=== PATIENT | female | born 1945 | race Caucasian/White ===

== ENCOUNTER 2019-10-26 00:26 | Day surgery (SDC) | payer MEDICARE, SELFPAY ==
[2019-10-22 14:25] VITALS: BMI 39.8
--- NOTE | 2019-10-26 10:17 | PM.HPGS ---
History of Present Illness History of Present Illness Consent: Risks, benefits, and alternatives have been discussed and questions answered. Patient agrees to proceed with procedure. Chief complaint: ulcer Narrative: Valorie Harris is a 74 year old W female referred for gastroscopy for evaluation and follow-up of peptic ulcer disease. Patient acute upper GI bleed in July 2019 was hospitalized at [facility]. Patient has been off her anticoagulation and cardiology wants to resume this thus we will check to make sure there is complete healing of the ulcer. Patient is asymptomatic. She remains on Protonix 40 mg daily. [facility] Family History Family History (Updated 02/15/17 @ 11:05 by DOCTOR UNKNOWN) Father Family history of congenital heart disease Family history of arthritis Family history of malignant neoplasm Sibling Family history of arthritis Mother Family history of malignant neoplasm Other Carcinoma of colon Family history of malignant neoplasm of bone Family history of malignant neoplasm of breast in first degree relative Family history of thyroid disease Social History Social History Smoking status: Former smoker Smoking end date: 08/19/04 Alcohol intake: never Meds Home Medications and Allergies Home Medications Medication Instructions Recorded Confirmed Type carvedilol 3.125 mg PO BID 10/22/19 10/26/19 History digoxin 0.125 mcg PO QAM 10/22/19 10/26/19 History ergocalciferol (vitamin D2) 50,000 unit PO WEEKLY 10/22/19 10/22/19 History furosemide 40 mg PO DAILY PRN 10/22/19 10/22/19 History levothyroxine 125 mcg PO QAM 10/22/19 10/26/19 History pantoprazole 40 mg PO QAM 10/22/19 10/22/19 History pentoxifylline 400 mg PO DAILY 10/22/19 10/26/19 History potassium chloride 20 meq PO DAILY PRN 10/22/19 10/22/19 History pregabalin [Lyrica] 200 mg PO BID 10/22/19 10/26/19 History sacubitril-valsartan [Entresto] 1 tablet PO BID 10/22/19 10/26/19 History sertraline [Zoloft] 25 mg PO QAM 10/22/19 10/26/19 History simvastatin 20 mg PO QAM 10/22/19 10/22/19 History tramadol 50 mg PO Q4-5H PRN 10/22/19 10/26/19 History Allergies Allergy/AdvReac Type Severity Reaction Status Date / Time No Known Allergies Allergy Unverified 08/16/18 14:07 Exam Const: Orientation/consciousness: patient oriented x3 Resp: Auscultation: clear to auscultation bilaterally Cardio: Rate: regular rate Rhythm: regular rhythm Heart sounds: no murmurs GI: GI Palp: Yes Soft to palpation, No Tenderness to palpation present (GI), Yes No hepatosplenomegaly present and No Palpable mass present Auscultation: normal bowel sounds Neuro: General: patient oriented x3 and no focal motor deficits Extrem: General: no pedal edema Assessment and Plan Additional Plan EGD for follow-up of peptic ulcer disease
[2019-10-26] MEDS: LACTATED RINGERS 1,000 ML 150 ML IV CONT (10:22)
[2019-10-26 10:24] VITALS: BP 125/63; PULSE 78; RESP 22; TEMP 36.3; O2SAT 93; BMI 38.0
--- NOTE | 2019-10-26 10:36 | WPDANESEPPF ---
Anes - Initial Pre Proc Eval Procedure: Operation Date: 10/26/19 11:30 Proposed Procedures p Esophagogastroduodenoscopy - Urbano Hancock MD Date/Time: 10/26/19 10:36 Surgeon: Urbano Hancock MD Pre Op Diagnosis: ulcer Patient Data Age: 74 Gender: F Height: 5 ft 6 in Weight: 107 kg Last Vital Signs Temp 97.4 F L 10/26/19 10:24 Pulse 78 10/26/19 10:24 Resp 22 H 10/26/19 10:24 BP 125/63 10/26/19 10:24 Pulse Ox 93 10/26/19 10:24 Allergies Allergy/AdvReac Type Severity Reaction Status Date / Time No Known Allergies Allergy Unverified 10/26/19 10:23 Home Medications Medication Instructions Recorded Confirmed Type carvedilol 3.125 mg PO BID 10/22/19 10/26/19 History digoxin 0.125 mcg PO QAM 10/22/19 10/26/19 History ergocalciferol (vitamin D2) 50,000 unit PO WEEKLY 10/22/19 10/22/19 History furosemide 40 mg PO DAILY PRN 10/22/19 10/22/19 History levothyroxine 125 mcg PO QAM 10/22/19 10/26/19 History pantoprazole 40 mg PO QAM 10/22/19 10/22/19 History pentoxifylline 400 mg PO DAILY 10/22/19 10/26/19 History potassium chloride 20 meq PO DAILY PRN 10/22/19 10/22/19 History pregabalin [Lyrica] 200 mg PO BID 10/22/19 10/26/19 History sacubitril-valsartan [Entresto] 1 tablet PO BID 10/22/19 10/26/19 History sertraline [Zoloft] 25 mg PO QAM 10/22/19 10/26/19 History simvastatin 20 mg PO QAM 10/22/19 10/22/19 History tramadol 50 mg PO Q4-5H PRN 10/22/19 10/26/19 History Patient hx anesthesia problems: none Family hx anesthesia problems: none PMFSH Past Medical History Medical History (Updated 10/26/19 @ 10:35 by Hi Vargas MD) Atrial fibrillation 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[facility]; 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, 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; 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 H/O: lung cancer Hyperlipidemia Hypertension Morbid obesity Peripheral vascular disease Family History Family History (Updated 02/15/17 @ 11:05 by DOCTOR UNKNOWN) Father Family history of congenital heart disease Family history of arthritis Family history of malignant neoplasm Sibling Family history of arthritis Mother Family history of malignant neoplasm Other Carcinoma of colon Family history of malignant neoplasm of bone Family history of malignant neoplasm of breast in first degree relative Family history of thyroid disease Social History Social History Smoking status: Former smoker Smoking end date: 08/19/04 Alcohol intake: never Anes - Eval Final PreProcedure Day of Procedure 10/26/19 10:36 Patient weight: morbidly obese Heart: regular rate and rhythm Lungs: clear to auscultation Airway: Mallampati scale class III Neurological: alert and oriented Last oral intake: >/= 8 hours ASA classification: IV Emergent: no Anesthetic plan: proceed Anesthesia type and monitoring: general GIVS and standard monitoring Informed Consent: The patient's anesthetic plan and its attendant risks and benefits were discussed with the patient/family/POA. Questions were solicited and answers provided to the satisfaction of the patient/family/POA.
[2019-10-26 11:05] VITALS: BP 98/55; PULSE 68; RESP 18; O2SAT 94
[2019-10-26 11:15] VITALS: BP 109/65; PULSE 72; RESP 20; O2SAT 91
[2019-10-26 11:25] VITALS: BP 121/59; PULSE 74; RESP 20; O2SAT 94
== END 2019-10-26 11:55 | disposition home or self-care (01) ==
PROVIDERS: PCP Internal Medicine; Visit Provider Internal Medicine Gastroenterology
PROC: 0DJ08ZZ Inspection of Upper Intestinal Tract, Via Natural or Artificial Opening Endoscopic (ICD-10-PCS; CPT 43235; principal; 2019-10-26 11:30)
DX: Z09 Encounter for follow-up examination after completed treatment for conditions other than malignant neoplasm (principal); Z87.11 Personal history of peptic ulcer disease; I48.91 Unspecified atrial fibrillation; I11.0 Hypertensive heart disease with heart failure; I50.9 Heart failure, unspecified; E78.5 Hyperlipidemia, unspecified; I73.9 Peripheral vascular disease, unspecified; Z85.118 Personal history of other malignant neoplasm of bronchus and lung; Z99.81 Dependence on supplemental oxygen; E66.01 Morbid (severe) obesity due to excess calories; Z68.38 Body mass index [BMI] 38.0-38.9, adult; Z87.891 Personal history of nicotine dependence
CPT/HCPCS: 43239; 87081; J2704; J7120

== ENCOUNTER 2019-11-16 08:32 | Inpatient (IN) | payer MEDICARE, SELFPAY ==
[2019-11-16] VITALS (9 sets, daily range): BP systolic 114–161; BP diastolic 80–99; PULSE 72–140; RESP 14–24; TEMP 36.6–36.8; O2SAT 92–99; BMI 41.6
--- NOTE | ~2019-11-16 | CT_ITS ---
EXAMINATION: CTA chest PE protocol DATE: 11/16/2019 13:16 INDICATION: Shortness of breath for 3 days. Nonproductive cough. Chest pain. TECHNIQUE: Computed tomography angiography (CTA) of the chest was performed with 100 mL Omnipaque-350 intravenous contrast timed to evaluate the pulmonary arteries. Coronal maximum intensity projection 3D-reconstructions were created by the technologist. Automated exposure control and iterative reconst ruction technique were employed. Exam dose: 859.00 mGy-cm total exam DLP. COMPARISON: None. FINDINGS: There is diagnostic contrast enhancement of the pulmonary arteries and no evidence of pulmo nary embolism. Endovascular stent of descending thoracic aorta. There are extensive calcifications of the thoracic aorta and great vessels and coronary arteries. Small bilateral pleural effusions. There are bilateral dependent lower lobe infiltrates and/or atelectasis, left greater than right. There are dependent stones in the body and neck of the gallbladder. Normal morphology of the adrenal glands. Status post lower cervical spine surgical anterior fusion. Old healed right fifth rib fracture IMPRESSION: No evidence of pulmonary embolism Endovascular stent of descending thoracic aorta Bilateral lower lobe infiltrate and/atelectasis, greater on the left Small pleural effusions Reviewed, dictated and finalized at Location [facility]. Reviewed, dictated and finalized at location B.
--- NOTE | ~2019-11-16 | XR_ITS ---
EXAMINATION: XR chest 1V portable INDICATION: Shortness of breath TECHNIQUE: Portable AP chest at 0910 hours COMPARISON: 01/26/2009 FINDINGS: There are airspace opacities in the mid and lower lung zones. There is chronic elevation of the right hemidiaphragm. No definite pleural effusion or pneumothorax is identified. An endoluminal stent graft is noted in the descending thoracic aorta. Changes of cervical fusion are noted. The hear t size is normal for technique. IMPRESSION: 1. Airspace opacities of the mid and lower lung zones, consistent with atelectasis versus pneumonia. Reviewed, dictated and finalized at location A. IMPRESSION: 1. Airspace opacities of the mid and lower lung zones, consistent with atelecta sis versus pneumonia.
--- NOTE | ~2019-11-16 | CT_ITS ---
EXAMINATION: CT brain wo con EXAM DATE: 11/18/2019 18:06 INDICATION: Confusion. TECHNIQUE: Spiral CT of the head was performed without contrast. Axial, coronal and sagittal images were reviewed. The dose-length product (DLP) for this examination was 605.33 mGy-cm. The exposure w as tailored according to patient size, and iterative reconstruction (ASIR) was used as additional dos e reduction technique. FINDINGS: There is no acute intraparenchymal hemorrhage. No evidence of intraparenchymal brain mass lesion. No evidence of acute infarction. Please note that initial head CT has limited sensitivity f or small or acute infarctions. There is mild periventricular and subcortical hypodensity, nonspecific but probably related to small vessel ischemic disease. There is mild prominence of the sulci and v entricles related to cerebral atrophy. There is intracranial carotid arteriosclerosis. There are n o extra-axial collections. There is no mass effect or midline shift. The orbits are unremarkable. Soft tissue is unremarkable. The visualized sinuses and mastoid air cells are well aerated. IMPRESSION: 1. No acute intracranial findings. 2. Chronic age related findings. Reviewed, dictated and finalized at location A.
--- NOTE | 2019-11-16 08:48 | ECG_ITS ---
Measurements Intervals [place] Rate: 106 P: AK: 0 QRS: 17 QRSD: 88 T: 154 QT: 293 QTc: 389 Interpretive Statements ATRIAL FIBRILLATION WITH RAPID VENTRICULAR RESPONSE FREQUENT VENTRICULAR PREMATURE COMPLEXES NONSPECIFIC ST & T-WAVE ABNORMALITY- DIFFUSE LEADS ABNORMAL ECG Electronically Signed On 11-16-2019 9:49:49 CDT by Jason Richards D.O.
[2019-11-16 09:25] LABS: Basophils Absolute Auto 0.1 K/mm3 (0.0-0.1); Basophils Percent Auto 0.9 % (0.2-1.2); Eosinophils Absolute Auto 0.1 K/mm3 (0-0.3); Eosinophils Percent Auto 1.7 % (0-4.4); Hematocrit 36.9 % (37.0-47.0); Hemoglobin 10.5 g/dL (12.0-15.0); Immature Granulocyte Absolute 0.02 K/mm3 (0.00-0.031); Immature Granulocyte Percent A 0.3 % (0-0.5); Lymphocytes Absolute Auto 0.83 K/mm3 (0.9-3.2); Lymphocytes Percent Auto 12.6 % (18.3-44.2); Mean Corpuscular HGB Conc 28.5 g/dl (32-36); Mean Corpuscular Hemoglobin 27.5 pg (26-34); Mean Corpuscular Volume 96.6 fl (80-100); Monocytes Absolute Auto 0.5 K/mm3 (0.1-0.6); Monocytes Percent Auto 7.4 % (2.6-8.5); Neutrophils Absolute Auto 5.1 K/mm3 (1.3-6.7); Neutrophils Percent Auto 77.1 % (45.5-73.1); Platelet Count Result 170 k/mm3 (150-375); Red Blood Count 3.82 M/mm3 (4.2-5.4); Red Cell Distribution Width 15.5 % (11.5-14.5); White Blood Count 6.6 K/mm3 (4.5-10.0)
[2019-11-16 09:27] LABS: Blood Urea Nitrogen 11 mg/dL (7-17); Calcium 8.7 mg/dL (8.4-10.2); Carbon Dioxide > 40 mmol/L (22-30); Chloride 97 mmol/L (98-107); Estimated CRCL calculation 81 ml/min; Estimated Glomerular Filt Rate > 60; Glucose 137 mg/dL (65-105); Sodium 139 mmol/L (137-145)
--- NOTE | 2019-11-16 09:44 | ED.SOB ---
HPI - SOB/Dyspnea General Chief Complaint: Shortness of Breath/Dyspnea Stated Complaint: sob Time Seen by Provider: 11/16/19 09:17 Source: patient Mode of arrival: ambulatory Limitations: no limitations History of Present Illness HPI Narrative: Patient presents with CC of shortness of breath with any exertion over the past 2-3 days. Patient states she does not have any cough or fever. She reports diarrhea over the past 2-3 days. She reports soreness to her sternal area and to the sides of bilateral ribs. Patient denies sharp left-sided chest pain with any radiation into her jaw or left arm. Denies vomiting. Patient states she normally wears 2L nasal cannula O2 at home due to COPD. She states she felt short of breath while trying to transfer to the shower. Patient reports she is wheelchair-bound at baseline. Patient also reports history of heart failure but denies noticing swelling to her lower extremities. She states her son and daughter and law who she lives with returned from [facility] 10 days ago. She states they have not been ill. Related Data Home Medications Medication Instructions Recorded Confirmed Entresto 1 tablet PO BID 10/22/19 10/26/19 carvedilol 3.125 mg PO BID 10/22/19 10/26/19 digoxin 0.125 mcg PO QAM 10/22/19 10/26/19 ergocalciferol (vitamin D2) 50,000 unit PO WEEKLY 10/22/19 10/22/19 furosemide 40 mg PO DAILY PRN 10/22/19 10/22/19 pantoprazole 40 mg PO QAM 10/22/19 10/22/19 pentoxifylline 400 mg PO BID 10/22/19 10/26/19 pregabalin [Lyrica] 200 mg PO BID 10/22/19 10/26/19 sertraline [Zoloft] 25 mg PO QAM 10/22/19 10/26/19 simvastatin 20 mg PO QAM 10/22/19 10/22/19 tramadol 50 mg PO Q4-5H PRN 10/22/19 10/26/19 aspirin [Aspir-81] 81 mg PO DAILY 11/16/19 potassium chloride [Klor-Con M20] 20 meq PO DAILY 11/16/19 Allergies Allergy/AdvReac Type Severity Reaction Status Date / Time No Known Allergies Allergy Unverified 11/16/19 08:33 Review of Systems Review of Systems: Narrative: CONSTITUTIONAL: Denies fever, chills, or sweats. EYES: Denies visual changes, redness, or discharge. ENT: Denies rhinorrhea, congestion, sore throat, or otalgia. CARDIOVASCULAR: Reports midsternal pain and bilateral rib pain denies palpitations, or edema. RESPIRATORY: Reports dyspnea denies cough GASTROINTESTINAL: Denies abdominal pain, nausea, vomiting, or diarrhea. GENITOURINARY: Denies dysuria or hematuria. SKIN: Denies rash or itching. MUSCULOSKELETAL: Denies back pain, joint pain, or myalgia. NEUROLOGIC: Denies headache, numbness, dizziness, or weakness. PSYCHIATRIC: Denies anxiety or depression. [facility] Past Medical History Medical History (Updated 11/16/19 @ 19:54 by Lisette De La Garza NP) Arterial stent thrombosis Left leg Atrial fibrillation Taken off of anticoagulation due to her peptic ulcer disease. 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 COPD (chronic obstructive pulmonary disease) Depression H/O: lung cancer Hyperlipidemia Hypertension Hypothyroidism Morbid obesity Peptic ulcer disease Peripheral artery disease Peripheral vascular disease Surgical History Surgical History (Updated 11/16/19 @ 19:37 by Lisette De La Garza NP) H/O tubal ligation History of appendectomy History of esophagogastroduodenoscopy (EGD) Family History Family History Father Family history of malignant neoplasm Family history of arthritis Carcinoma of colon Sibling Family history of arthritis Family history of malignant neoplasm of breast in first degree relative Mother Family history of malignant neoplasm breast cancer developed to bone; Sibling Family history of malignant neoplasm of breast in first degree relative Sibling Family history of malignant neoplasm of breast in first degree relative Other Family history of malignant neoplasm of bone Family history of thyroid disease
[2019-11-16 10:02] LABS: NT Pro B Type Natriuretic Pept 2940 PG/ML (5-100)
[2019-11-16] MEDS: ASPIRIN 81 MG CHEWABLE TABLET 243 MG PO (10:02)
[2019-11-16] MEDS: SODIUM CHLORIDE 0.9% IV 500 ML 999 ML IV CONT (10:02)
[2019-11-16] MEDS: methylPREDNISolone SOD SUCC 125 MG VIAL IV PUSH (12:53)
[2019-11-16] MEDS: POTASSIUM CHLORIDE 20 MEQ TABLET 40 MEQ PO (14:58)
--- NOTE | 2019-11-16 15:40 | PC.NURSE ---
This Rn Called to give report. Was told by Ericka that nurse was in room and will call me back.
--- NOTE | 2019-11-16 16:31 | ADMGEN ---
This patient, Valorie Harris, was admitted to [facility] Surg Room 330-01. Patient/family oriented to hospital policies and general routines including ID bracelet, bed and alarms, visiting hours, pain management, procedures, bathroom and other care routines, personal items, smoking policy, room service/diet, and visiting hours. Valuables list has been completed. Information on how to activate the Rapid Response Team has been discussed. Patient/Family are encouraged to report perceived risks to care and to ask questions if they do not understand what they are told or what they should do.
--- NOTE | 2019-11-16 19:10 | PM.IMHP ---
H&P: HPI History of Present Illness Chief complaint: bilateral pneumonia/COVID tested Narrative: Valorie Harris is a 74 year old female who has a history of having COPD as well as congestive heart failure. The patient the patient has been complaining of shortness of breath with exertion over the last 2-3 days. She denies having a cough or fever. She has also has diarrhea for last 2-3 days. Her son and daughter along live with her and they just returned back from [facility] approximately 10 days ago. The patient tells me that she has home health services and that she has been socially isolating from her son and [id number] all the best she can in her own home. The son and daughter in-law did not isolate themselves. The patient is wheelchair-bound at baseline. The patient also has a history of atrial fibrillation but was taken off of her anti coagulation because she recently had a GI bleed. Patient was taken off of her anticoagulation is still not back on. She recently had an EGD on 10/26/2019. The patient had been at [facility] and July through August and had a GI bleed. July and August she was treated for pneumonia as well. The patient sees Dr. Ulloa for her GI specialist. The patient had a CT a pulmonary performed which was read as no evidence of pulmonary embolism. Continue with a Zithromax and Rocephin. [place] department of public health department was notified. The patient was a candidate for covid 19 and she was swabbed. Patient was placed on isolation on 3rd floor. She has a dry cough. No fever chills. Review of Systems Review of Systems: All systems reviewed & are unremarkable except as noted in HPI and below Constitutional: Constitutional: Reports as per HPI and Reports no additional constitutional complaints Eyes: Eyes: Reports as per HPI and Reports no additional eye complaints ENT: Reports system reviewed and no additional complaints, except as documented and Reports Normal hearing present Cardiovascular: Cardiovascular: Reports no additional cardiovascular complaints Respiratory: Respiratory: Reports no additional respiratory complaints and Reports no additional respiratory complaints Gastrointestinal: Gastrointestinal: Reports as per HPI and Reports no additional gastrointestinal complaints Musculoskeletal: Musculoskeletal: Reports no additional musculoskeletal complaints Integumentary/Breasts: Skin/Breast: Reports system reviewed and no additional complaints, except as docu and Reports as per HPI Neurologic: Reports system reviewed and no additional complaints, except as documented, Reports as per HPI and Reports Normal hearing present Psychiatric: Psychiatric: Reports no additional psychiatric complaints and Reports as per HPI Endocrine: Endocrine: Reports no additional endocrine complaints Hematologic/Lymphatic: Hematologic/Lymphatic: Reports no additional hematologic/lymphatic complaints Allergic/Immunologic: Allergic/Immunologic: Reports no additional allergic/immunologic complaints [facility] Past Medical History Medical History (Updated 11/16/19 @ 19:54 by Lisette De La Garza NP) Arterial stent thrombosis Left leg Atrial fibrillation Taken off of anticoagulation due to her peptic ulcer disease. 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
[2019-11-16] MEDS: TRAMADOL HCL 50 MG TABLET PO (20:00)
[2019-11-16] MEDS: LORAZEPAM INJ 2 MG/ML VIAL 0.5 MG IV PUSH (20:06)
[2019-11-16] MEDS: carvediloL 3.125 MG TABLET PO (20:10)
[2019-11-16] MEDS: PREGABALIN 50 MG CAPSULE 200 MG PO (20:15)
[2019-11-16] MEDS: PENTOXIFYLLINE 400 MG TABCR PO (20:23)
[2019-11-16] MEDS: DIGOXIN TAB 125 MCG TABLET PO (20:30)
--- NOTE | 2019-11-16 20:32 | PC.NURSE ---
Pt assessed at 1715, but I charted the 171 assessment as a 2000.
[2019-11-16 22:07] LABS: Glucose Point of Care 135 (65-105)
[2019-11-16 22:08] LABS: Glucose Point of Care 174 (65-105)
[2019-11-17] VITALS (12 sets, daily range): BP systolic 117–165; BP diastolic 53–88; PULSE 54–112; RESP 18–22; TEMP 36.2–36.4; O2SAT 94–97
--- NOTE | 2019-11-17 02:00 | PC.NURSE ---
Frequent attempts throughout the night made to get out of bed unassisted, setting the bed alarm off. Discussed safety precautions at length and time spent at bedside. Verbalized understanding of all information discussed. Assisted to chair at bedside. Call light within reach. Chair alarm in place. Continue to monitor.
[2019-11-17] MEDS: TRAMADOL HCL 50 MG TABLET PO ×2 (03:33→08:42)
[2019-11-17] MEDS: LORAZEPAM INJ 2 MG/ML VIAL 0.5 MG IV PUSH (03:33)
[2019-11-17 05:59] LABS: Basophils Percent Auto 0.3 % (0.2-1.2); Hematocrit 36.4 % (37.0-47.0); Hemoglobin 10.9 g/dL (12.0-15.0); Immature Granulocyte Absolute 0.03 K/mm3 (0.00-0.031); Immature Granulocyte Percent A 0.5 % (0-0.5); Lymphocytes Absolute Auto 1.01 K/mm3 (0.9-3.2); Lymphocytes Percent Auto 16.4 % (18.3-44.2); Mean Corpuscular HGB Conc 29.9 g/dl (32-36); Mean Corpuscular Volume 93.6 fl (80-100); Mean Platelet Volume 11.6 fl (7.4-10.4); Monocytes Absolute Auto 0.4 K/mm3 (0.1-0.6); Monocytes Percent Auto 5.7 % (2.6-8.5); Neutrophils Absolute Auto 4.7 K/mm3 (1.3-6.7); Neutrophils Percent Auto 77.1 % (45.5-73.1); Platelet Count Result 208 k/mm3 (150-375); Red Blood Count 3.89 M/mm3 (4.2-5.4); Red Cell Distribution Width 15.4 % (11.5-14.5); White Blood Count 6.1 K/mm3 (4.5-10.0)
[2019-11-17 06:30] LABS: Alanine Aminotransferase 13 U/L (4-35); Albumin Level 4.1 g/dL (3.5-5.1); Alkaline Phosphatase 106 U/L (38-126); Aspartate Amino Transferase 16 U/L (14-36); Bilirubin,Total 0.4 mg/dL (0.2-1.3); Blood Urea Nitrogen 13 mg/dL (7-17); Calcium 8.9 mg/dL (8.4-10.2); Carbon Dioxide 39 mmol/L (22-30); Chloride 97 mmol/L (98-107); Estimated CRCL calculation 81 ml/min; Estimated Glomerular Filt Rate > 60; Glucose 142 mg/dL (65-105); Magnesium 1.8 mg/dL (1.6-2.3); Potassium 3.6 mmol/L (3.4-5.0); Sodium 139 mmol/L (137-145)
[2019-11-17] MEDS: carvediloL 3.125 MG TABLET PO ×2 (08:25→20:10)
[2019-11-17] MEDS: PANTOPRAZOLE 40 MG TABLET PO (08:29)
[2019-11-17] MEDS: PENTOXIFYLLINE 400 MG TABCR PO ×2 (08:29→16:09)
[2019-11-17] MEDS: SERTRALINE HCL 25 MG TABLET PO (08:30)
[2019-11-17] MEDS: SIMVASTATIN 20 MG TABLET PO (08:35)
[2019-11-17] MEDS: DIGOXIN TAB 125 MCG TABLET PO (08:36)
[2019-11-17] MEDS: PREGABALIN 50 MG CAPSULE 200 MG PO ×2 (08:43→16:08)
--- NOTE | 2019-11-17 12:11 | PC.NURSE ---
Patient states had been on Eliquis for a fib, but stopped recently per Dr. Hancock for recent scope. Patient's pharmacy [facility] [phone] states that medication prescribed to patient in July by Erin Johnson NP but script never filled. Office called and nurse states that they do not see medication on her current list, but that they would have a doctor from the office review information and give us a call back regarding eliquis.
--- NOTE | 2019-11-17 12:31 | PM.IMPN ---
Progress Note: A&P Assessment and Plan (1) CAP (community acquired pneumonia): Code(s): J18.9 - Pneumonia, unspecified organism Status: Acute Assessment and Plan: -----Continue ceftriaxone and azithromycin at this time. CTA reviewed which showed bilateral lower lobe infiltrates and atelectasis. Since the patient is at risk and has a family member at home that just recently traveled to [facility], COVID test was done and is pending. Azithromycin and Rocephin will be continued. We will try and get a sputum it pt is able. Patient is afebrile and has no white count at this time. Clinically, COVID seems less likely. . (2) COPD (chronic obstructive pulmonary disease): Code(s): J44.9 - Chronic obstructive pulmonary disease, unspecified Status: Chronic Assessment and Plan: -----No wheezing today. No additional steroids needed at this time. (3) Atrial fibrillation: Code(s): I48.91 - Unspecified atrial fibrillation Status: Acute Assessment and Plan: ------Patient was off of her anticoagulation because she recently had a GI bleed. She recently had an EGD performed by Dr. Hancock. I called her sr. director product management Dr. Shi and spoke with office staff and asked what anticoagulation they want her on. They said the doctor wants to see her before they start anything. They are going to call her to make an appointment. She still continues to be treated for peptic ulcer disease. She is on Coreg and digoxin and rate controlled. (4) Hyperlipidemia: Code(s): E78.5 - Hyperlipidemia, unspecified Status: Chronic Assessment and Plan: Continue with Zocor. (5) Hypertension: Code(s): I10 - Essential (primary) hypertension Status: Chronic Assessment and Plan: ------Continue with Coreg. (6) Hypothyroidism: Code(s): E03.9 - Hypothyroidism, unspecified Status: Chronic Assessment and Plan: -----TSH normal. Pt is not on levothyroxine anymore. Follow up with pcp (7) Depression: Code(s): F32.9 - Major depressive disorder, single episode, unspecified Status: Chronic Assessment and Plan: -----Continue Zoloft. (8) Congestive heart failure (CHF): Code(s): I50.9 - Heart failure, unspecified Status: Acute Assessment and Plan: -----Appears to be stable at this time. Continue with her Lasix. Additional Plan Chronic pain due to her peripheral neuropathy. Continue with Lyrica and Ultram. Peripheral artery disease continue with her Trental. Time Spent With Patient Time with patient: 25 - 35 minutes Subjective Date/time seen: 11/17/19 12:31 Interval history: Pt is a 74 y/o female here for PNA who was seen today. She denies cough, fevers, chills, nausea, vomiting, abdominal pain or diarrhea today. She says she feels SOB occasionally but overall doing much better. She is at her home o2 setting. She has not slept due to the noise of the hospital. Review of Systems Review of Systems: All systems reviewed & are unremarkable except as noted in HPI and below Exam Narrative: Exam Narrative: General: Well developed well nourished patient resting in bed in NAD HEENT: normocephalic Neck: supple Neuro: Alert and oriented x4 CV: RRR on my exam today. Tele shows intermittent afib RVR with rates up to 140. Currently in NSR Resp:CTA--decreased breath sounds. Please note, a disposable stethoscope was used during this lung exam which decreases sensitivity. Abd: Soft, non distended. No pain to palpation. Positive bowel sounds Extremities: No swelling, erythema, or pain to palpation. Objective Data Vital Signs Vital Signs: Vital Signs - 24 hr 11/16/19 12:43 11/16/19 14:55 11/16/19 19:41 Temperature Pulse Rate 98 103 H 132 H Respiratory Rate 15 20 Blood Pressure 136/99 H 121/97 H Pulse Oximetry 99 94 94 11/16/19 20:00 11/16/19 20:10 11/16/19 20:30 Temperature 97.8
[2019-11-17] MEDS: ENOXAPARIN 40 MG/0.4 ML SYRINGE SUB-Q (13:00)
[2019-11-17] MEDS: MELATONIN 5 MG TABLET PO (20:10)
[2019-11-18] VITALS (12 sets, daily range): BP systolic 113–137; BP diastolic 53–96; PULSE 66–110; RESP 16–20; TEMP 36.3–36.6; O2SAT 91–98
[2019-11-18] MEDS: TRAMADOL HCL 50 MG TABLET PO ×3 (02:00→18:42)
[2019-11-18 06:05] LABS: Hematocrit 37.9 % (37.0-47.0); Hemoglobin 10.7 g/dL (12.0-15.0); Mean Corpuscular HGB Conc 28.2 g/dl (32-36); Mean Corpuscular Hemoglobin 27.5 pg (26-34); Mean Corpuscular Volume 97.4 fl (80-100); Mean Platelet Volume 12.3 fl (7.4-10.4); Platelet Count Result 212 k/mm3 (150-375); Red Blood Count 3.89 M/mm3 (4.2-5.4); Red Cell Distribution Width 15.6 % (11.5-14.5); White Blood Count 7.8 K/mm3 (4.5-10.0)
[2019-11-18 07:23] LABS: Blood Urea Nitrogen 15 mg/dL (7-17); Calcium 8.9 mg/dL (8.4-10.2); Carbon Dioxide 39 mmol/L (22-30); Chloride 96 mmol/L (98-107); Estimated CRCL calculation 81 ml/min; Estimated Glomerular Filt Rate > 60; Glucose 109 mg/dL (65-105); Magnesium 1.9 mg/dL (1.6-2.3); Potassium 3.4 mmol/L (3.4-5.0); Sodium 138 mmol/L (137-145)
[2019-11-18] MEDS: ENOXAPARIN 40 MG/0.4 ML SYRINGE SUB-Q (09:37)
[2019-11-18] MEDS: PANTOPRAZOLE 40 MG TABLET PO (09:38)
[2019-11-18] MEDS: DIGOXIN TAB 125 MCG TABLET PO (09:38)
[2019-11-18] MEDS: carvediloL 3.125 MG TABLET PO ×2 (09:38→21:12)
[2019-11-18] MEDS: PENTOXIFYLLINE 400 MG TABCR PO ×2 (09:39→18:43)
[2019-11-18] MEDS: SIMVASTATIN 20 MG TABLET PO (09:39)
[2019-11-18] MEDS: SERTRALINE HCL 25 MG TABLET PO (09:39)
--- NOTE | 2019-11-18 09:48 | PC.NURSE ---
Reviewed patient status with ADITYA Durant. Aware of confusion and anxiety concerns. She is contacting family for further information regarding home oxygen use needs prior to admission.
[2019-11-18] MEDS: PREGABALIN 50 MG CAPSULE 200 MG PO ×2 (09:58→18:43)
--- NOTE | 2019-11-18 11:49 | PM.IMPN ---
Progress Note: A&P Assessment and Plan (1) CAP (community acquired pneumonia): Code(s): J18.9 - Pneumonia, unspecified organism Status: Acute Assessment and Plan: -----Continue ceftriaxone and azithromycin at this time. CTA reviewed which showed bilateral lower lobe infiltrates and atelectasis. Since the patient is at risk and has a family member at home that just recently traveled to [facility], COVID test was done and is pending. Azithromycin and Rocephin will be continued. We will try and get a sputum it pt is able but unable to do so, so far. Patient is afebrile and has no white count at this time. Clinically, COVID seems less likely. . (2) COPD (chronic obstructive pulmonary disease): Code(s): J44.9 - Chronic obstructive pulmonary disease, unspecified Status: Chronic Assessment and Plan: -----No wheezing today. No additional steroids needed at this time. (3) Atrial fibrillation: Code(s): I48.91 - Unspecified atrial fibrillation Status: Acute Assessment and Plan: ------Patient was off of her anticoagulation because she recently had a GI bleed. She recently had an EGD performed by Dr. Hancock. I called her collarette separator Dr. Shi and spoke with office staff and asked what anticoagulation they want her on. They said the doctor wants to see her before they start anything. They are going to call her to make an appointment. She still continues to be treated for peptic ulcer disease. She is on Coreg and digoxin and rate controlled. I will get a baseline CT scan since pt goes in and out of confusion and has known afib. (4) Hyperlipidemia: Code(s): E78.5 - Hyperlipidemia, unspecified Status: Chronic Assessment and Plan: Continue with Zocor. (5) Hypertension: Code(s): I10 - Essential (primary) hypertension Status: Chronic Assessment and Plan: ------Continue with Coreg and entresto (6) Hypothyroidism: Code(s): E03.9 - Hypothyroidism, unspecified Status: Chronic Assessment and Plan: -----TSH normal. Pt is not on levothyroxine anymore. Follow up with pcp (7) Depression: Code(s): F32.9 - Major depressive disorder, single episode, unspecified Status: Chronic Assessment and Plan: -----Continue Zoloft. (8) Congestive heart failure (CHF): Code(s): I50.9 - Heart failure, unspecified Status: Acute Assessment and Plan: -----Appears to be stable at this time. Continue with her Lasix. Subjective Date/time seen: 11/18/19 11:49 Interval history: Pt is a 74 y/o female here for PNA who was seen today. Patient states she thinks she is doing a little worse today. She said she was not wearing her oxygen and she felt short of breath. She denies fevers, chills, chest pain, nausea, vomiting, abdominal pain or leg pain. In the room she told me that she does not usually wear her oxygen at home unless it is at night. I called her son, Evaristo, because there was some question about her memory. Evaristo says that her memory is getting worse and is exacerbated when she goes to the hospital or other places. She has never been seen for dementia but he has noticed a decline in the last year so. 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 Exam Narrative: Exam Narrative: General: Well developed well nourished patient resting in bed in NAD HEENT: normocephalic Neck: supple Neuro: Alert and oriented x4 technically CV: RRR on my exam today. Tele shows afib with controlled rate. Currently in NSR Resp:CTA--decreased breath sounds with some crackles Abd: Soft, non distended. No pain to palpation. Positive bowel sounds Extremities: No swelling, erythema, or pain to palpation. Objective Data Vital Signs Vital Signs: Vital Signs - 24 hr 11/17/19 12:00 11/17/19 16:00 11/17/19 20:00 Temperature 97.1 F L Pulse Rate 104 H 98 112 H Res
[2019-11-18] MEDS: ALBUTEROL SULFATE (*SP) AEROSOL 1 PUFF 2 PUFF INHALATION ×3 (14:24→20:48)
--- NOTE | 2019-11-18 16:06 | PC.NURSE ---
Covid 19 test results reported as negative. Droplet isolation 2020 precautions dced.
[2019-11-18] MEDS: SACUBITRIL/VALSARTAN 49-51 MG TABLET 1 TABLET PO (18:43)
[2019-11-18] MEDS: MELATONIN 5 MG TABLET PO (21:12)
[2019-11-18] MEDS: TOLNAFTATE 1% POWDER 45 GM BTL 1 APPLIC TOPICAL (21:13)
[2019-11-19] VITALS (7 sets, daily range): BP systolic 124–151; BP diastolic 65–93; PULSE 80–97; RESP 16–20; TEMP 36.3–36.7; O2SAT 91–93
[2019-11-19] MEDS: TRAMADOL HCL 50 MG TABLET PO ×4 (00:18→18:20)
[2019-11-19 06:07] LABS: Hematocrit 36.6 % (37.0-47.0); Hemoglobin 10.5 g/dL (12.0-15.0); Mean Corpuscular HGB Conc 28.7 g/dl (32-36); Mean Corpuscular Hemoglobin 27.9 pg (26-34); Mean Corpuscular Volume 97.1 fl (80-100); Platelet Count Result 177 k/mm3 (150-375); Red Blood Count 3.77 M/mm3 (4.2-5.4); Red Cell Distribution Width 15.7 % (11.5-14.5); White Blood Count 5.6 K/mm3 (4.5-10.0)
[2019-11-19 07:17] LABS: Blood Urea Nitrogen 15 mg/dL (7-17); CRP 3.3 mg/dL (<1.0); Calcium 8.3 mg/dL (8.4-10.2); Carbon Dioxide > 40 mmol/L (22-30); Chloride 96 mmol/L (98-107); Estimated CRCL calculation 72 ml/min; Estimated Glomerular Filt Rate > 60; Glucose 94 mg/dL (65-105); Potassium 3.1 mmol/L (3.4-5.0); Sodium 141 mmol/L (137-145)
[2019-11-19] MEDS: ALBUTEROL SULFATE (*SP) AEROSOL 1 PUFF 2 PUFF INHALATION ×4 (08:37→20:46)
[2019-11-19] MEDS: carvediloL 3.125 MG TABLET PO ×2 (09:08→22:21)
[2019-11-19] MEDS: DIGOXIN TAB 125 MCG TABLET PO (09:08)
[2019-11-19] MEDS: PANTOPRAZOLE 40 MG TABLET PO (09:08)
[2019-11-19] MEDS: SIMVASTATIN 20 MG TABLET PO (09:09)
[2019-11-19] MEDS: FUROSEMIDE 40 MG TABLET PO (09:09)
[2019-11-19] MEDS: PENTOXIFYLLINE 400 MG TABCR PO ×2 (09:10→18:18)
[2019-11-19] MEDS: SERTRALINE HCL 25 MG TABLET PO (09:10)
[2019-11-19] MEDS: SACUBITRIL/VALSARTAN 49-51 MG TABLET 1 TABLET PO ×2 (09:10→18:18)
[2019-11-19] MEDS: ENOXAPARIN 40 MG/0.4 ML SYRINGE SUB-Q (09:10)
[2019-11-19] MEDS: POTASSIUM CHLORIDE 20 MEQ TABLET PO (09:21)
[2019-11-19] MEDS: PREGABALIN 50 MG CAPSULE 200 MG PO ×2 (09:22→18:18)
[2019-11-19] MEDS: TOLNAFTATE 1% POWDER 45 GM BTL 1 APPLIC TOPICAL ×2 (10:00→22:21)
[2019-11-19] MEDS: POTASSIUM CHLORIDE 20 MEQ TABLET 40 MEQ PO (13:24)
--- NOTE | 2019-11-19 17:42 | PM.IMPN ---
Progress Note: A&P Assessment and Plan (1) Urinary retention: Code(s): R33.9 - Retention of urine, unspecified Status: Acute Assessment and Plan: -----patient had acute urinary retention. She was initially straight cathed but got over 1000 out. This was changed to a Khan catheter and was clamped for 20 minutes and then the rest of the 800 was withdrawn to avoid hemorrhagic cystitis. The patient states she has a history of this when she is hospitalized. Likely brought on by her Lasix. We will give her a dose of tamsulosin and see how she does tomorrow with a voiding trial. (2) CAP (community acquired pneumonia): Code(s): J18.9 - Pneumonia, unspecified organism Status: Acute Assessment and Plan: -----Continue ceftriaxone and azithromycin at this time. CTA reviewed which showed bilateral lower lobe infiltrates and atelectasis. Since the patient is at risk and has a family member at home that just recently traveled to [place], COVID test was done and is negative. Azithromycin and Rocephin will be continued. We will try and get a sputum it pt is able but unable to do so, so far. Patient is afebrile and has no white count at this time. Clinically, COVID seems less likely. . (3) COPD (chronic obstructive pulmonary disease): Code(s): J44.9 - Chronic obstructive pulmonary disease, unspecified Status: Chronic Assessment and Plan: -----No wheezing today. No additional steroids needed at this time. (4) Atrial fibrillation: Code(s): I48.91 - Unspecified atrial fibrillation Status: Acute Assessment and Plan: ------Patient was off of her anticoagulation because she recently had a GI bleed. She recently had an EGD performed by Dr. Hancock. I called her interior horticulturist Dr. Shi and spoke with office staff and asked what anticoagulation they want her on. They said the doctor wants to see her before they start anything. They are going to call her to make an appointment. She still continues to be treated for peptic ulcer disease. She is on Coreg and digoxin and rate controlled. I will get a baseline CT scan since pt goes in and out of confusion and has known afib. (5) Hyperlipidemia: Code(s): E78.5 - Hyperlipidemia, unspecified Status: Chronic Assessment and Plan: Continue with Zocor. (6) Hypertension: Code(s): I10 - Essential (primary) hypertension Status: Chronic Assessment and Plan: ------Continue with Coreg and entresto (7) Hypothyroidism: Code(s): E03.9 - Hypothyroidism, unspecified Status: Chronic Assessment and Plan: -----TSH normal. Pt is not on levothyroxine anymore. Follow up with pcp (8) Depression: Code(s): F32.9 - Major depressive disorder, single episode, unspecified Status: Chronic Assessment and Plan: -----Continue Zoloft. (9) Congestive heart failure (CHF): Code(s): I50.9 - Heart failure, unspecified Status: Acute Assessment and Plan: -----Appears to be stable at this time. Continue with her Lasix, now scheduled. Additional Plan Chronic pain due to her peripheral neuropathy. Continue with Lyrica and Ultram. Peripheral artery disease continue with her Trental. Subjective Date/time seen: 11/19/19 17:43 Interval history: Pt is a 74 y/o female here for PNA who was seen today. Patient was seen today and states her shortness of breath has resolved and she is no longer coughing. She does, have complaints of significant abdominal pain and inability to urinate. She says that this happens sometimes when she is hospitalized but it is never happened at home. She was given her Lasix today because she feels fluid overloaded. She said she was told that she needs to take it every day but she said she would live in the bathroom if that was the case so she takes it p.r.n.. Pt denies nausea, vomiting, fevers, chills, co
[2019-11-19] MEDS: MELATONIN 5 MG TABLET PO (22:21)
[2019-11-20] MEDS: TRAMADOL HCL 50 MG TABLET PO ×3 (00:22→16:14)
[2019-11-20 05:39] LABS: Hematocrit 37.1 % (37.0-47.0); Hemoglobin 10.6 g/dL (12.0-15.0); Mean Corpuscular HGB Conc 28.6 g/dl (32-36); Mean Corpuscular Hemoglobin 27.5 pg (26-34); Mean Corpuscular Volume 96.4 fl (80-100); Mean Platelet Volume 11.7 fl (7.4-10.4); Platelet Count Result 173 k/mm3 (150-375); Red Blood Count 3.85 M/mm3 (4.2-5.4); Red Cell Distribution Width 15.5 % (11.5-14.5); White Blood Count 5.9 K/mm3 (4.5-10.0)
[2019-11-20 05:51] LABS: Potassium 3.6 mmol/L (3.4-5.0)
[2019-11-20 05:57] LABS: Blood Urea Nitrogen 14 mg/dL (7-17); Calcium 8.3 mg/dL (8.4-10.2); Carbon Dioxide > 40 mmol/L (22-30); Chloride 96 mmol/L (98-107); Estimated CRCL calculation 81 ml/min; Estimated Glomerular Filt Rate > 60; Glucose 95 mg/dL (65-105); Sodium 141 mmol/L (137-145)
[2019-11-20 06:00] VITALS: BP 135/57; PULSE 80; RESP 18; TEMP 36.4; O2SAT 91
[2019-11-20] MEDS: PREGABALIN 50 MG CAPSULE 200 MG PO ×2 (08:08→16:14)
[2019-11-20 08:09] VITALS: PULSE 80
[2019-11-20] MEDS: FUROSEMIDE 40 MG TABLET PO (08:09)
[2019-11-20] MEDS: carvediloL 3.125 MG TABLET PO (08:09)
[2019-11-20] MEDS: DIGOXIN TAB 125 MCG TABLET PO (08:09)
[2019-11-20] MEDS: ENOXAPARIN 40 MG/0.4 ML SYRINGE SUB-Q (08:09)
[2019-11-20] MEDS: SIMVASTATIN 20 MG TABLET PO (08:10)
[2019-11-20] MEDS: SACUBITRIL/VALSARTAN 49-51 MG TABLET 1 TABLET PO ×2 (08:10→16:15)
[2019-11-20] MEDS: TAMSULOSIN HCL 0.4 MG CAPSULE PO (08:10)
[2019-11-20] MEDS: PANTOPRAZOLE 40 MG TABLET PO (08:10)
[2019-11-20] MEDS: TOLNAFTATE 1% POWDER 45 GM BTL 1 APPLIC TOPICAL (08:10)
[2019-11-20] MEDS: SERTRALINE HCL 25 MG TABLET PO (08:10)
[2019-11-20] MEDS: PENTOXIFYLLINE 400 MG TABCR PO ×2 (08:10→16:14)
[2019-11-20 08:21] VITALS: PULSE 90; O2SAT 93
[2019-11-20] MEDS: ALBUTEROL SULFATE (*SP) AEROSOL 1 PUFF 2 PUFF INHALATION ×3 (08:21→17:03)
[2019-11-20 15:00] VITALS: BP 109/58; PULSE 83; RESP 18; TEMP 36.3; O2SAT 98
--- NOTE | 2019-11-20 16:49 | PM.DS ---
DS: Diagnosis Admitting Diagnosis Admitting Diagnosis: Pneumonia, unspecified organism Discharge Diagnosis (1) Urinary retention: Code(s): R33.9 - Retention of urine, unspecified Status: Acute (2) CAP (community acquired pneumonia): Code(s): J18.9 - Pneumonia, unspecified organism Status: Acute (3) COPD (chronic obstructive pulmonary disease): Code(s): J44.9 - Chronic obstructive pulmonary disease, unspecified Status: Chronic (4) Atrial fibrillation: Code(s): I48.91 - Unspecified atrial fibrillation Status: Acute (5) Hyperlipidemia: Code(s): E78.5 - Hyperlipidemia, unspecified Status: Chronic (6) Hypertension: Code(s): I10 - Essential (primary) hypertension Status: Chronic (7) Hypothyroidism: Code(s): E03.9 - Hypothyroidism, unspecified Status: Chronic (8) Depression: Code(s): F32.9 - Major depressive disorder, single episode, unspecified Status: Chronic (9) Congestive heart failure (CHF): Code(s): I50.9 - Heart failure, unspecified Status: Acute DS: Summary Hospital Course Reason for hospitalization: Pneumonia Hospital Course: Patient is 74-year-old female who presented emergency room for worsening dyspnea on exertion, dry cough, and diarrhea over the last few days with pleuritic chest pain. Patient had chronic COPD and wears 2 L of nasal cannula at home. In the ER her temperature was 98.3?, pulse 110, respiratory rate 20, blood pressure 161/80, pulse ox 98 on room air. White blood cell count within normal limits. BMP shows low potassium 3.0 and elevated CO2 greater than 40. Influenza screen negative. Chest x-ray shows airspace opacities in the mid and lower lung zones consistent with atelectasis versus pneumonia. Patient was tested for COVID-19 and placed on isolation until she was proven negative a few days later. During her stay, the patient had a few episodes of AFib RVR which improved with her home medication and treatment infection. By also talked to her about needing to be on anticoagulation and called her workforce staffing advisor office who said that he will started once she sees him in the office. The patient also had acute urinary retention and a Khan catheter was placed and 1800 mL urine was received. She underwent a voiding trial prior to discharge which she failed. I spoke to Urology and they are going to see her outpatient in 1 week. She was discharged with a catheter and Purvi lessened. Patient states this has happened to her before and she is not surprised by it. Overall, the patient's cough and shortness of breath resolved and she was back to her home oxygen settings. The patient was educated about the worrisome signs and symptoms to come back to emergency room for was discharged in stable condition. She is DIS follow-up with her workforce staffing advisor and now urologist. Status at Discharge Overall status at discharge: patient is back to baseline Time Spent with Patient Time attestation: Total time spent providing and/or coordinating discharge services: 38 minutes Time spent: Greater than 30 minutes Exam Narrative: Exam Narrative: General: Well developed well nourished patient resting in bed in NAD HEENT: normocephalic Neck: supple Neuro: Alert and oriented x4 technically CV: Irregularly irregular with no murmurs. Resp:CTA--decreased breath sounds with some crackles Abd: Soft, non distended. Pain to palpation to the lower abdomen. Positive bowel sounds Extremities: Trace pitting edema up to the mid [place], bilaterally--improved. No pain to palpation DS: Data Data Completed and Pending Labs on day of discharge: Labs from last 24 hours 11/20/19 11/20/19 05:17 05:17 WBC 5.9 RBC 3.85 L Hgb 10.6 L Hct 37.1 MCV 96.4 MCH 27.5 MCHC 28.6 L RDW 15.5 H Plt Count 173 MPV 11.7 H Sodium 141 Potassium 3.6 Chloride 96 L Carbon Dioxide > 40 H BUN 14 Creatinine 0.7
[2019-11-20 17:04] VITALS: PULSE 94
== END 2019-11-20 17:32 | disposition home health service (06) | DRG 194 ==
LOC: ANHED 14:48 → ANH3MEDSUR 15:25
PROVIDERS: Nurse Practitioner; Physician Assistant; Admitting Provider Internal Medicine; Emergency Provider Emergency Medicine; PCP Internal Medicine; Visit Provider Family Medicine
DX: J18.9 Pneumonia, unspecified organism (principal); Z68.41 Body mass index [BMI] 40.0-44.9, adult; J44.0 Chronic obstructive pulmonary disease with (acute) lower respiratory infection; Z99.3 Dependence on wheelchair; I48.91 Unspecified atrial fibrillation; R33.9 Retention of urine, unspecified; Z20.828 Contact with and (suspected) exposure to other viral communicable diseases; Z95.820 Peripheral vascular angioplasty status with implants and grafts; I50.9 Heart failure, unspecified; Z99.81 Dependence on supplemental oxygen; F32.9 Major depressive disorder, single episode, unspecified; E78.5 Hyperlipidemia, unspecified; Z85.118 Personal history of other malignant neoplasm of bronchus and lung; I11.0 Hypertensive heart disease with heart failure; E03.9 Hypothyroidism, unspecified; E66.01 Morbid (severe) obesity due to excess calories; Z87.11 Personal history of peptic ulcer disease; I73.9 Peripheral vascular disease, unspecified; Z87.891 Personal history of nicotine dependence
CPT/HCPCS: 36415; 70450; 71045; 71275; 80048; 80053; 83735; 83880; 84443; 85025; 85027; 86140; 87804; 93005; 94640; 96361; 96365; 96375; 97161; 97165; 99285; A9270; J0456; J0696; J1650; J2060; J2930; J7040; Q9967

== ENCOUNTER 2019-12-15 10:47 | Emergency (ER) | payer MEDICARE, SELFPAY ==
--- NOTE | ~2019-12-15 | XR_ITS ---
XR chest 1V portable 12/15/2019 12:06 Indication: Shortness of breath and chest pain Procedure: AP portable chest Comparison: Comparison to multiple prior studies sequentially, with oldest reviewed study dated 01/26. Findings: Chronic elevation of the right diaphragm, suspicious for phrenic nerve paralysis. Moderate cardiomegaly. There is an endoluminal stent in the thoracic aorta. There is right basilar atelectasis /scarring. No acute focal pneumonia, edema, pleural effusion or pneumothorax. No acute osseous abnorm ality. Impression: 1: Chronic elevation of the right diaphragm with right basilar atelectasis/scarring. 2: Cardiomegaly. Reviewed, dictated and finalized at location A. Impression: 1: Chronic elevation of the right diaphragm with right basilar atelectasis/scar ring. 2: Cardiomegaly.
--- NOTE | ~2019-12-15 | CT_ITS ---
EXAMINATION: CTA chest abdomen pelvis DATE: 12/15/2019 15:34 CDT INDICATION: Shortness of breath. Right lower quadrant pain. TECHNIQUE: Computed tomographic angiography (CTA) of the chest, abdomen, and pelvis was performed wit hout and with 100 mL Omnipaque-350 intravenous contrast. The dose-length product was 1789.22 mGy-cm. Maximum intensity projection 3D-reconstructions of the aorta and other arteries were constructed by joss rojas technologist on a separate workstation. Automated exposure control and iterative reconstruction technique were employed. COMPARISON: CT dated 11/16/2019 FINDINGS: CHEST CTA: There is atherosclerosis of the aorta and coronary arteries. 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 Trace right pleural effusion. Heart size is vera l. No large central pulmonary embolism. No thoracic lymphadenopathy. 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 There is dependent atelectasis. Patchy groundglass opacities are identified in both lungs there is a 5 mm right lower lobe nodule without significant change. ABDOMEN AND PELVIS CTA: There are gallstones. Fatty infiltration of the liver. The spleen, pancreas, adrenal glands and right kidney are unremarkable. There is a hypodense 1.5 cm exophytic left renal mass. Bowel pattern is non obstructive. Colonic diverticulosis without evidence for diverticulitis. Bladder is unremarkable. Sta tus post hysterectomy. Trace free fluid in the pelvis. IMPRESSION: 1. Patchy bilateral groundglass opacities which may reflect pneumonia or respiratory bronchiolitis. 2: Trace right pleural effusion. 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 4: 5 mm right lower lobe nodule, stable. Follow-up CT in 12 months recommended. 5: Indeterminate hypodense 1.5 cm left renal mass. Recommend correlation with ultrasound. 6: Gallstones. Reviewed, dictated and finalized at location A. IMPRESSION: 1. Patchy bilateral groundglass opacities which may reflect pneumonia or respir atory bronchiolitis. 2: Trace right pleural effusion. 3: Chronic elevation of the right diaphragm, likely due to phrenic nerve paraly sis. 4: 5 mm right lower lobe nodule, stable. Follow-up CT in 12 months recommended . 5: Indeterminate hypodense 1.5 cm left renal mass. Recommend correlation with ultrasound. 6: Gallstones.
[2019-12-15 10:52] VITALS: BP 153/75; PULSE 101; RESP 20; TEMP 36.7; O2SAT 100
[2019-12-15 11:00] VITALS: BP 140/71; PULSE 87; RESP 21; O2SAT 100
--- NOTE | 2019-12-15 11:47 | ECG_ITS ---
Measurements Intervals [place] Rate: 80 P: [place]: 0 QRS: 35 QRSD: 84 T: 103 QT: 350 QTc: 404 Interpretive Statements ATRIAL FIBRILLATION VENTRICULAR PREMATURE COMPLEXES NONSPECIFIC ST & T-WAVE ABNORMALITY- LATERAL LEADS ABNORMAL ECG Electronically Signed On 12-15-2019 12:51:03 CDT by Jason Richards D.O.
--- NOTE | 2019-12-15 11:59 | ED.ABDPAIN ---
HPI - Abdominal Pain General Chief Complaint: Abdominal Pain <ENRIQUE Boland Last Filed: 12/15/19 16:42> Stated Complaint: upper abd pain <ENRIQUE Boland Last Filed: 12/15/19 16:42> Time Seen by Provider: 12/15/19 11:10 <ENRIQUE Boland Last Filed: 12/15/19 16:42> Source: patient <ENRIQUE Boland Last Filed: 12/15/19 16:42> Mode of arrival: ambulatory <ENRIQUE Boland Last Filed: 12/15/19 16:42> Limitations: no limitations <ENRIQUE Boland Last Filed: 12/15/19 16:42> History of Present Illness HPI narrative: Patient is a 74-year-old female who presents to emergency department for evaluation of shortness of breath that is continued since her discharge when she was diagnosed with bilateral pneumonia patient with history of COPD with 2 L nasal cannula oxygen requirement. Patient now notes that she has having tenderness and pain in the upper abdomen that began yesterday and has remained constant is a sharp aching pain made worse with activity and movement. Patient denies any fever chills nausea vomiting rectal bleeding or melena. <ENRIQUE Boland Last Filed: 12/15/19 16:42> Related Data Home Medications: Home Medications Medication Instructions Recorded Confirmed Entresto 1 tablet PO BID 10/22/19 11/17/19 carvedilol 3.125 mg PO BID 10/22/19 11/17/19 digoxin 0.125 mcg PO QAM 10/22/19 11/17/19 ergocalciferol (vitamin D2) 50,000 unit PO WEEKLY 10/22/19 11/17/19 furosemide 40 mg PO DAILY 10/22/19 11/17/19 pantoprazole 40 mg PO QAM 10/22/19 11/17/19 pentoxifylline 400 mg PO BID 10/22/19 11/16/19 pregabalin [Lyrica] 200 mg PO BID 10/22/19 11/17/19 sertraline [Zoloft] 25 mg PO QAM 10/22/19 11/17/19 simvastatin 20 mg PO QAM 10/22/19 11/17/19 tramadol 50 mg PO TID PRN 10/22/19 11/17/19 aspirin [Aspir-81] 81 mg PO DAILY 11/16/19 11/17/19 potassium chloride [Klor-Con M20] 20 meq PO DAILY 11/16/19 11/17/19 cholecalciferol (vitamin D3) 25 mcg PO QAM 11/17/19 11/17/19 [Vitamin D3] vitamin B complex [B 1 tablet PO DAILY 11/17/19 11/17/19 Complex-Vitamin B12] acidophilus-pectin, citrus 2 cap PO DAILY 12/15/19 [Acidophilus Probiotic] [id number] 1 cap PO DAILY 12/15/19 [Krill Oil (Maybee 3 and 6)] <Cesar Randall PA-C - Last Filed: 12/15/19 16:42> Allergies/Adverse Reactions: Allergies Allergy/AdvReac Type Severity Reaction Status Date / Time No Known Allergies Allergy Verified 12/15/19 11:09 <Cesar Randall PA-C - Last Filed: 12/15/19 16:42> Review of Systems Review of Systems: All systems reviewed & are unremarkable except as noted in HPI and below <Cesar Randall PA-C - Last Filed: 12/15/19 16:42> [facility] Past Medical History Medical History: Medical History Arterial stent thrombosis Left leg Atrial fibrillation Taken off of anticoagulation due to her peptic ulcer disease. 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[facility]; Dr Shi, social work faculty member; on home O2 COPD (chronic obstructive pulmonary disease) Depression H/O: lung cancer Hyperlipidemia Hypertension Hypothyroidism Morbid obesity Peptic ulcer disease Peripheral artery disease Peripheral vascular disease <Cesar Randall PA-C - Last Filed: 12/15/19 16:42> Surgical History Surgical History: Surgical History H/O tubal ligation History of appendectomy History of esophagogastroduodenoscopy (EGD) <Cesar Randall PA-C - Last Filed: 12/15/19 16:42> Family History Family History: Family History Father Family history of malignant neoplasm Family history of arthritis Carcinoma of colon Sibling Family history of arthritis Family history of malignant neoplasm of breast in first degree relative M
[2019-12-15 12:05] LABS: Glucose Point of Care 103 (65-105)
[2019-12-15] MEDS: FAMOTIDINE 20 MG/2 ML VIAL IV PUSH (12:28)
[2019-12-15] MEDS: SODIUM CHLORIDE 0.9% IV 500 ML 999 ML IV CONT (12:29)
[2019-12-15 12:33] VITALS: BP 149/61; PULSE 84; RESP 15; O2SAT 100
[2019-12-15 12:37] LABS: Basophils Absolute Auto 0.1 K/mm3 (0.0-0.1); Basophils Percent Auto 0.8 % (0.2-1.2); Eosinophils Absolute Auto 0.1 K/mm3 (0-0.3); Hematocrit 36.5 % (37.0-47.0); Hemoglobin 10.6 g/dL (12.0-15.0); Immature Granulocyte Absolute 0.03 K/mm3 (0.00-0.031); Immature Granulocyte Percent A 0.5 % (0-0.5); Lymphocytes Absolute Auto 1.21 K/mm3 (0.9-3.2); Lymphocytes Percent Auto 20.3 % (18.3-44.2); Mean Corpuscular Hemoglobin 26.9 pg (26-34); Mean Corpuscular Volume 92.6 fl (80-100); Mean Platelet Volume 11.7 fl (7.4-10.4); Monocytes Absolute Auto 0.6 K/mm3 (0.1-0.6); Monocytes Percent Auto 9.7 % (2.6-8.5); Neutrophils Percent Auto 66.7 % (45.5-73.1); Platelet Count Result 169 k/mm3 (150-375); Red Blood Count 3.94 M/mm3 (4.2-5.4); Red Cell Distribution Width 15.8 % (11.5-14.5)
[2019-12-15 12:48] LABS: Platelet Estimate Adequate (Adequate)
[2019-12-15 12:51] LABS: Alanine Aminotransferase 13 U/L (4-35); Albumin Level 4.2 g/dL (3.5-5.1); Alkaline Phosphatase 103 U/L (38-126); Aspartate Amino Transferase 19 U/L (14-36); Bilirubin,Total 0.4 mg/dL (0.2-1.3); Blood Urea Nitrogen 11 mg/dL (7-17); CRP 1.6 mg/dL (<1.0); Calcium 8.8 mg/dL (8.4-10.2); Carbon Dioxide 38 mmol/L (22-30); Chloride 99 mmol/L (98-107); Estimated CRCL calculation 79 ml/min; Estimated Glomerular Filt Rate > 60; Glucose 106 mg/dL (65-105); Lactic Acid Reflex 0.8 mmol/L (0.7-2.1); Lipase 63 U/L (23-300); Potassium 3.5 mmol/L (3.4-5.0); Sodium 141 mmol/L (137-145)
[2019-12-15 12:52] LABS: Hypochromasia 1+ (NORMAL); Ovalocytes 1+ (NORMAL); Target Cells 2+ (NORMAL)
[2019-12-15 12:56] LABS: Partial Thromboplastin Time 29.7 SECONDS (22.3-36.8); Prothrombin Time 13.1 Seconds (11.1-14.7)
[2019-12-15 13:00] LABS: Troponin I < 0.012 ng/mL (0.000-0.034)
[2019-12-15 13:00] LABS: NT Pro B Type Natriuretic Pept 3140 PG/ML (5-100)
[2019-12-15 13:05] LABS: D Dimer 0.78 ug/mL (<0.48)
[2019-12-15 13:30] VITALS: BP 125/88; PULSE 91; RESP 17
[2019-12-15 14:31] VITALS: BP 131/69; PULSE 77; RESP 15; O2SAT 94
[2019-12-15 16:22] LABS: Alveolar/Arterial O2 Gradient 56.1 mmHg; Carboxyhemoglobin 0.3 % THb (0-2.0); Fractional Inspired Oxygen 30 %; HCO3 ABG 34.4 mEq/l (22.0-26.0); Methemoglobin ABG 0.4 %THb (0-1.5); Oxygen Content ABG 14.8 %vol (16.0-22.0); Oxygen Saturation ABG 95.2 % (95.0-100.0); Oxyhemoglobin 94.1 % THb (90.0-100.0); PO2 FiO2 Ratio Arterial Blood 2.73 %; Reduced Hemoglobin 5.2 %THb (0-5.0); Total Hemoglobin 11.1 g/dL (12.0-18.0); pH ABG 7.345 (7.350-7.450)
[2019-12-15 16:25] LABS: PCO2 ABG 64.5 mmHg (35.0-45.0)
[2019-12-15 16:26] LABS: Device NASAL CANNULA; Liters per Minute 2.5 LPM; Modified Allen's Test Pass; Site Drawn RIGHT RADIAL
[2019-12-15 16:32] VITALS: BP 127/94
[2019-12-18 08:03] LABS: SARS-CoV-2 RNA PCR Negative
== END 2019-12-15 17:06 | disposition home or self-care (01) ==
PROVIDERS: Emergency Medicine; Emergency Medicine Emergency Medical Services; Emergency Provider Emergency Medicine; PCP Internal Medicine
DX: J44.9 Chronic obstructive pulmonary disease, unspecified (principal); J18.9 Pneumonia, unspecified organism; R10.10 Upper abdominal pain, unspecified; Z20.828 Contact with and (suspected) exposure to other viral communicable diseases; Z99.81 Dependence on supplemental oxygen; I48.91 Unspecified atrial fibrillation; I50.9 Heart failure, unspecified; F32.9 Major depressive disorder, single episode, unspecified; Z79.82 Long term (current) use of aspirin; Z85.118 Personal history of other malignant neoplasm of bronchus and lung; E78.5 Hyperlipidemia, unspecified; E03.9 Hypothyroidism, unspecified; I10 Essential (primary) hypertension; K27.9 Peptic ulcer, site unspecified, unspecified as acute or chronic, without hemorrhage or perforation; I73.9 Peripheral vascular disease, unspecified; E66.01 Morbid (severe) obesity due to excess calories; Z68.39 Body mass index [BMI] 39.0-39.9, adult; Z87.891 Personal history of nicotine dependence; Z99.3 Dependence on wheelchair
CPT/HCPCS: 36415; 36600; 71045; 71275; 74174; 80053; 82375; 82805; 82948; 83050; 83605; 83690; 83880; 84484; 85025; 85380; 85610; 85730; 86140; 87040; 87635; 93005; 96361; 96374; 96375; 99284; A9270; C9803; J0131; J7040; Q9967; U0003

== ENCOUNTER 2019-12-17 16:53 | Emergency (ER) | payer MEDICARE, SELFPAY ==
--- NOTE | ~2019-12-17 | CT_ITS ---
EXAMINATION: CT brain wo con DATE: 12/17/2019 18:13 INDICATION: Altered mental status. Increased confusion. TECHNIQUE: Computed tomography (CT) of the head was performed without intravenous contrast. The dose- length product was 605.33 mGy-cm. The mA was adjusted according to patient size. Iterative reconstruc tion technique was employed. COMPARISON: CT dated 11/18/2019 FINDINGS: No acute intracranial hemorrhage, infarction, mass or mass effect. No ventriculomegaly or m idline shift. Basilar cisterns are patent. There are scattered mild periventricular and subcortical w wei matter changes, most likely related to small vessel ischemic disease (microangiopathy). There is intracranial atherosclerosis. Paranasal sinuses and mastoids are pneumatized. No depressed skull fra ctures. IMPRESSION: 1. No acute intracranial abnormality. Reviewed, dictated and finalized at location A.
[2019-12-17 16:58] VITALS: PULSE 89; RESP 16
[2019-12-17 17:11] VITALS: BP 149/86; TEMP 36.3
--- NOTE | 2019-12-17 17:12 | ECG_ITS ---
Measurements Intervals [place] Rate: 82 P: [place]: 0 QRS: 34 QRSD: 93 T: 120 QT: 385 QTc: 450 Interpretive Statements ATRIAL FIBRILLATION NONSPECIFIC ST & T-WAVE ABNORMALITY- DIFFUSE LEADS BASELINE ARTIFACT- I, II, III, AVR, AVL, AVF, V4-V6 ABNORMAL ECG Electronically Signed On 12-18-2019 7:07:47 CDT by Jason Richards D.O.
--- NOTE | 2019-12-17 17:29 | ED.AMS ---
HPI - Altered Mental Status General Chief Complaint: Urogenital-Female Stated Complaint: confusion Time Seen by Provider: 12/17/19 17:07 Source: patient Limitations: no limitations History of Present Illness HPI narrative: Pt brought in by EMS after family called due to confusion. Pt alert and oriented on exam. Denies any complaints at this time but states she had 1 bout of n/v earlier. Denies speech or visual disturbance. Denies weakness or numbness. Pt states she's not on any oral anticoagulants for her a fib due to GI bleeding and ulcer. Related Data Home Medications Medication Instructions Recorded Confirmed Entresto 1 tablet PO BID 10/22/19 11/17/19 carvedilol 3.125 mg PO BID 10/22/19 11/17/19 digoxin 0.125 mcg PO QAM 10/22/19 11/17/19 ergocalciferol (vitamin D2) 50,000 unit PO WEEKLY 10/22/19 11/17/19 furosemide 40 mg PO DAILY 10/22/19 11/17/19 pantoprazole 40 mg PO QAM 10/22/19 11/17/19 pentoxifylline 400 mg PO BID 10/22/19 11/16/19 pregabalin [Lyrica] 200 mg PO BID 10/22/19 11/17/19 sertraline [Zoloft] 25 mg PO QAM 10/22/19 11/17/19 simvastatin 20 mg PO QAM 10/22/19 11/17/19 tramadol 50 mg PO TID PRN 10/22/19 11/17/19 aspirin [Aspir-81] 81 mg PO DAILY 11/16/19 11/17/19 potassium chloride [Klor-Con M20] 20 meq PO DAILY 11/16/19 11/17/19 cholecalciferol (vitamin D3) 25 mcg PO QAM 11/17/19 11/17/19 [Vitamin D3] vitamin B complex [B 1 tablet PO DAILY 11/17/19 11/17/19 Complex-Vitamin B12] acidophilus-pectin, citrus 2 cap PO DAILY 12/15/19 [Acidophilus Probiotic] [id number] 1 cap PO DAILY 12/15/19 [Krill Oil ([place] 3 and 6)] Allergies Allergy/AdvReac Type Severity Reaction Status Date / Time No Known Allergies Allergy Verified 12/15/19 11:09 Review of Systems Review of Systems: All systems reviewed & are unremarkable except as noted in HPI and below Constitutional: Constitutional: Denies body ache(s), Denies chills, Denies excessive sweating, Denies fatigue, Denies fever(s), Denies headache(s), Denies lethargy, Denies malaise, Denies weakness and Denies weight loss Eyes: Eyes: Denies blurry vision, Denies change in vision and Denies loss of vision ENT: Denies dizziness, Denies ear discharge, Denies headache(s), Denies lip swelling, Denies epistaxis, Denies nasal congestion, Denies neck pain, Denies throat swelling and Denies tongue swelling Cardiovascular: Cardiovascular: Denies chest pain, Denies chest pain at rest, Denies chest pain with activity, Denies diaphoresis, Denies rapid heart rate, Denies edema, Denies irregular heart rhythm, Denies lightheadedness, Denies palpitations, Denies dyspnea and Denies dyspnea on exertion Respiratory: Respiratory: Denies chest congestion, Denies cough, Denies hemoptysis, Denies dyspnea and Denies dyspnea on exertion Gastrointestinal: Gastrointestinal: Denies abdominal pain, Denies melena, Denies hematochezia, Denies diarrhea, Denies nausea, Denies vomiting and Denies hematemesis Musculoskeletal: Musculoskeletal: Denies abnormal gait, Denies deformity, Denies joint swelling, Denies limited range of motion, Denies neck pain and Denies numbness Neurologic: Denies Abnormal speech present, Denies abnormal gait, Reports confusion, Denies dizziness, Denies headache(s), Denies focal weakness, Denies loss of vision, Denies numbness, Denies Other visual disturbances, Denies Sensory deficit (Neuro) and Denies weakness Psychiatric: Psychiatric: Denies confusion, Denies depression, Denies auditory hallucinations, Denies homicidal ideation and Denies suicidal ideation Endocrine: Endocrine: Denies cold intolerance, Denies excessive sweating, Denies fatigue, Denies heat intolerance and Denies palpitations Hematologic/Lymphatic: Hematologic/Lymphatic: Denies easy bleeding and Denies easy bruising Allergic/Immunologic: Allergic/Immunologic: Denies lip swelling, Denies throat swelling and Denies tongue swelling [facility] Social History Social History (Reviewed 12/15/19
[2019-12-17 18:01] LABS: Basophils Absolute Auto 0.1 K/mm3 (0.0-0.1); Basophils Percent Auto 0.7 % (0.2-1.2); Eosinophils Percent Auto 0.1 % (0-4.4); Hematocrit 33.6 % (37.0-47.0); Hemoglobin 9.9 g/dL (12.0-15.0); Immature Granulocyte Absolute 0.04 K/mm3 (0.00-0.031); Immature Granulocyte Percent A 0.5 % (0-0.5); Lymphocytes Percent Auto 9.4 % (18.3-44.2); Mean Corpuscular HGB Conc 29.5 g/dl (32-36); Mean Corpuscular Hemoglobin 26.9 pg (26-34); Mean Corpuscular Volume 91.3 fl (80-100); Mean Platelet Volume 11.4 fl (7.4-10.4); Monocytes Absolute Auto 0.7 K/mm3 (0.1-0.6); Monocytes Percent Auto 8.1 % (2.6-8.5); Neutrophils Absolute Auto 6.9 K/mm3 (1.3-6.7); Neutrophils Percent Auto 81.2 % (45.5-73.1); Platelet Count Result 165 k/mm3 (150-375); Red Blood Count 3.68 M/mm3 (4.2-5.4); Red Cell Distribution Width 16.1 % (11.5-14.5); White Blood Count 8.5 K/mm3 (4.5-10.0)
[2019-12-17 18:07] LABS: Add Urine Microscopic? YES; Appearance Urine Clear (Clear); Bilirubin Urine Negative (Negative); Blood Urine Negative (Negative); Color Urine Yellow (Yellow); Glucose Urine UA Negative (Negative); Ketones Urine 1+ mg/dL (Negative); Leukocyte Esterase Ur Negative LEU/UL (Negative); Mucus Urine Moderate /lpf; Nitrate Urine Negative (Negative); Protein Urine 2+ mg/dL (Negative); RBC Urine 0-2 /hpf (0-2); Specific Grav Ur 1.026 (1.001-1.035); WBC Urine 0-3 /hpf
[2019-12-17 18:10] LABS: INR 1.2; Prothrombin Time 14.9 Seconds (11.1-14.7)
[2019-12-17 18:11] LABS: Partial Thromboplastin Time 29.8 SECONDS (22.3-36.8)
[2019-12-17 18:16] LABS: Alanine Aminotransferase 14 U/L (4-35); Alkaline Phosphatase 94 U/L (38-126); Aspartate Amino Transferase 18 U/L (14-36); Bilirubin,Total 0.8 mg/dL (0.2-1.3); Blood Urea Nitrogen 14 mg/dL (7-17); Calcium 8.7 mg/dL (8.4-10.2); Carbon Dioxide 39 mmol/L (22-30); Chloride 98 mmol/L (98-107); Estimated CRCL calculation 80 ml/min; Estimated Glomerular Filt Rate > 60; Glucose 99 mg/dL (65-105); Potassium 3.1 mmol/L (3.4-5.0); Sodium 141 mmol/L (137-145)
[2019-12-17 18:22] LABS: Anisocytosis 2+ (NORMAL); Hypochromasia 1+ (NORMAL); Platelet Estimate Adequate (Adequate)
[2019-12-17 18:27] LABS: Troponin I < 0.012 ng/mL (0.000-0.034)
[2019-12-17 18:51] VITALS: BP 155/137; PULSE 86; RESP 17; O2SAT 90
--- NOTE | 2019-12-17 19:04 | PC.NURSE ---
Ravindra haddad phone number [phone] Dayne Harris
[2019-12-17 19:46] VITALS: BP 122/65; PULSE 92; RESP 20; O2SAT 91
[2019-12-17 20:00] LABS: Digoxin 0.7 ng/mL (0.8-2.0)
[2019-12-17 20:22] VITALS: BP 149/75; PULSE 80; RESP 20; O2SAT 92
[2019-12-17] MEDS: POTASSIUM CHLORIDE 20 MEQ PACKET (FOR LIQUID) 40 MEQ PO (20:31)
== END 2019-12-17 20:42 | disposition home or self-care (01) ==
PROVIDERS: Emergency Provider Emergency Medicine; PCP Internal Medicine
DX: R41.0 Disorientation, unspecified (principal); I48.91 Unspecified atrial fibrillation; Z87.891 Personal history of nicotine dependence; R94.31 Abnormal electrocardiogram [ECG] [EKG]
CPT/HCPCS: 36415; 70450; 80053; 80162; 81001; 84484; 85025; 85610; 85730; 93005; 99284; A9270

== ENCOUNTER 2019-12-25 12:40 | Outpatient (CLI) | payer MEDICARE, SELFPAY ==
--- NOTE | ~2019-12-25 | US_ITS ---
EXAMINATION: US renal BI DATE: 12/25/2019 14:45 INDICATION: Abnormal left kidney on CT TECHNIQUE: Multiple ultrasound grayscale images of the kidneys were obtained. COMPARISON: CT dated 12/15/2019 FINDINGS: The right kidney measures 8.8 x 3.7 x 5.7 cm. The left kidney measures 10.8 x 4.7 x 6.7 cm. The kidne ys demonstrate normal echogenicity. 1.4 cm anechoic cyst with well-defined echogenic curvilinear post erior wall and posterior acoustic enhancement which corresponds in size and location a lesion of conc tim on prior CT. No other renal lesions identified. There is no hydronephrosis in either kidney. No stones identified. The bladder is normal. IMPRESSION: 1. 1.4 cm left renal cyst. Otherwise normal kidneys with no hydronephrosis. Reviewed, dictated and finalized at location A.
--- NOTE | 2019-12-27 20:42 | WPDPFTINT ---
PFT Interpretation PFT Interpretation: DOS: 12/25/2019 REQUESTING: Akosua Stern NP REASON FOR TESTING: COPD PULMONARY FUNCTION TESTS The patient was only able to produce one acceptable plethysmography and DLCO, even with multiple attempts. This reduces the reliability and reproducibility. Spirometry: FEV1 is 39%, 0.84 liters, severely reduced. FVC is 55%, moderately reduced. FEV1% is decreased. There is a 7% increase in FEV1 with bronchodilator, not significant. Lung volumes: TLC 64%, moderate restriction. RV/TLC increased at 49% consistent with air trapping. Airway resistance elevated 663%. Diffusion: DLCO extremely reduced, 26%. Flow volume loop: Scooping of the expiratory limb consistent with obstruction. Abnormal expiratory limb with severe flow limitation after bronchodilator, may not be significant. IMPRESSION: Severe obstructive and moderate restrictive defect, air trapping and increased airway resistance. The flow volume loop was not reproducible. Lack of response to bronchodilator should not preclude use if clinically significant. Leticia Lim MD
== END 2019-12-25 12:41 | disposition home or self-care (01) ==
PROVIDERS: PCP Internal Medicine; Visit Provider Nurse Practitioner
DX: J44.9 Chronic obstructive pulmonary disease, unspecified (principal); R94.2 Abnormal results of pulmonary function studies; N28.1 Cyst of kidney, acquired
CPT/HCPCS: 76775; 94060; 94726; 94729

== ENCOUNTER 2020-08-10 10:30 | Observation (INO) | payer MEDICARE, SELFPAY ==
[2020-08-10] VITALS (21 sets, daily range): BP systolic 89–119; BP diastolic 48–103; PULSE 66–90; RESP 10–27; TEMP 36.1–36.5; O2SAT 95–100; BMI 41.5
--- NOTE | 2020-08-10 11:05 | ED.GIBLEED ---
HPI - GI Bleed General Chief complaint: GI Bleed Stated complaint: ?GI BLEED Time Seen by Provider: 08/10/20 10:44 Source: patient Mode of arrival: EMS Limitations: no limitations History of Present Illness HPI Narrative: 75 years old white female came from assisted living with rectal bleeding. Patient reports going to the bathroom this morning found a quarter sized blood clot came out later was dripping blood in the toilet. Patient is not sure if she had that with bowel movement or without bowel movement. Patient had a history of hemorrhoids with intermittent bleeding. History of atrial fibrillation, on aspirin. Currently patient denying any symptoms. No fever no chills no nausea no vomiting no abdominal pain. Related Data Home Medications Medication Instructions Recorded Confirmed Entresto 1 tablet PO BID 10/22/19 11/17/19 carvedilol 3.125 mg PO BID 10/22/19 11/17/19 digoxin 0.125 mcg PO QAM 10/22/19 11/17/19 ergocalciferol (vitamin D2) 50,000 unit PO WEEKLY 10/22/19 11/17/19 furosemide 40 mg PO DAILY 10/22/19 11/17/19 pantoprazole 40 mg PO QAM 10/22/19 11/17/19 pentoxifylline 400 mg PO BID 10/22/19 11/16/19 pregabalin [Lyrica] 200 mg PO BID 10/22/19 11/17/19 sertraline [Zoloft] 25 mg PO QAM 10/22/19 11/17/19 simvastatin 20 mg PO QAM 10/22/19 11/17/19 tramadol 50 mg PO TID PRN 10/22/19 11/17/19 aspirin [Aspir-81] 81 mg PO DAILY 11/16/19 11/17/19 potassium chloride [Klor-Con M20] 20 meq PO DAILY 11/16/19 11/17/19 cholecalciferol (vitamin D3) 25 mcg PO QAM 11/17/19 11/17/19 [Vitamin D3] vitamin B complex [B 1 tablet PO DAILY 11/17/19 11/17/19 Complex-Vitamin B12] acidophilus-pectin, citrus 2 cap PO DAILY 12/15/19 [Acidophilus Probiotic] [id number] 1 cap PO DAILY 12/15/19 [Krill Oil ([place] 3 and 6)] Allergies Allergy/AdvReac Type Severity Reaction Status Date / Time No Known Allergies Allergy Verified 08/10/20 10:43 Review of Systems Review of Systems: Narrative: CONSTITUTIONAL: Denies fever, chills, or sweats. EYES: Denies visual changes, redness, or discharge. ENT: Denies rhinorrhea, congestion, sore throat, or otalgia. CARDIOVASCULAR: Denies chest pain, palpitations, or edema. RESPIRATORY: Denies cough or dyspnea. GASTROINTESTINAL: Denies abdominal pain, nausea, vomiting, or diarrhea. GENITOURINARY: Denies dysuria or hematuria. SKIN: Denies rash or itching. MUSCULOSKELETAL: Denies back pain, joint pain, or myalgia. NEUROLOGIC: Denies headache, numbness, or weakness. PSYCHIATRIC: Denies anxiety or depression. FORMERLY [facility] Past Medical History Medical History Arterial stent thrombosis Left leg Atrial fibrillation Taken off of anticoagulation due to her peptic ulcer disease. 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[facility]; Dr Shi, tooth cutter contact wheel; on home O2 COPD (chronic obstructive pulmonary disease) Depression H/O: lung cancer Hyperlipidemia Hypertension Hypothyroidism Morbid obesity Peptic ulcer disease Peripheral artery disease Peripheral vascular disease Surgical History Surgical History H/O tubal ligation History of appendectomy History of esophagogastroduodenoscopy (EGD) Family History Family History Father Family history of malignant neoplasm Family history of arthritis Carcinoma of colon Sibling Family history of arthritis Family history of malignant neoplasm of breast in first degree relative Mother Family history of malignant neoplasm breast cancer developed to bone; Sibling Family history of malignant neoplasm of breast in first degree relative Sibling Family history of malignant neoplasm of breast in first degree relative Other Family history of malignant neoplasm of bone Family history of thyroid disease Social History Social History (Reviewed 08/10/20
[2020-08-10 12:48] LABS: Basophils Percent Auto 0.6 % (0.2-1.2); Eosinophils Absolute Auto 0.2 K/mm3 (0-0.3); Eosinophils Percent Auto 3.6 % (0-4.4); Hematocrit 32.5 % (37.0-47.0); Hemoglobin 9.6 g/dL (12.0-15.0); Immature Granulocyte Absolute 0.02 K/mm3 (0.00-0.031); Immature Granulocyte Percent A 0.3 % (0-0.5); Lymphocytes Absolute Auto 1.17 K/mm3 (0.9-3.2); Lymphocytes Percent Auto 18.2 % (18.3-44.2); Mean Corpuscular HGB Conc 29.5 g/dl (32-36); Mean Corpuscular Hemoglobin 29.3 pg (26-34); Mean Corpuscular Volume 99.1 fl (80-100); Mean Platelet Volume 11.3 fl (7.4-10.4); Monocytes Absolute Auto 0.6 K/mm3 (0.1-0.6); Monocytes Percent Auto 8.6 % (2.6-8.5); Neutrophils Absolute Auto 4.4 K/mm3 (1.3-6.7); Neutrophils Percent Auto 68.7 % (45.5-73.1); Platelet Count Result 166 k/mm3 (150-375); Red Blood Count 3.28 M/mm3 (4.2-5.4); Red Cell Distribution Width 14.7 % (11.5-14.5); White Blood Count 6.4 K/mm3 (4.5-10.0)
[2020-08-10 12:59] LABS: INR 1.3; Prothrombin Time 16.4 Seconds (11.1-14.7)
[2020-08-10 13:00] LABS: Partial Thromboplastin Time 33.7 SECONDS (22.3-36.8)
[2020-08-10 13:00] LABS: Hypochromasia 1+ (NORMAL); Platelet Estimate Adequate (Adequate)
[2020-08-10 13:01] LABS: Albumin Level 3.7 g/dL (3.5-5.1); Carbon Dioxide 39 mmol/L (22-30); Estimated CRCL calculation 47 ml/min; Estimated Glomerular Filt Rate 44
[2020-08-10 13:12] LABS: Alanine Aminotransferase 11 U/L (4-35); Alkaline Phosphatase 92 U/L (38-126); Anion Gap 4 mmol/L (8-16); Aspartate Amino Transferase 18 U/L (14-36); Bilirubin,Total 0.3 mg/dL (0.2-1.3); Blood Urea Nitrogen 36 mg/dL (7-17); Calcium 8.3 mg/dL (8.4-10.2); Chloride 98 mmol/L (98-107); Glucose 106 mg/dL (65-105); Potassium 4.8 mmol/L (3.4-5.0); Sodium 141 mmol/L (137-145)
[2020-08-10] MEDS: SODIUM CHLORIDE 0.9% IV 1,000 ML 100 ML IV CONT (14:21)
--- NOTE | 2020-08-10 16:08 | WPDGICN ---
Assessment and Plan Assessment and plan (1) Rectal bleeding: Code(s): K62.5 - Hemorrhage of anus and rectum Status: Acute Assessment and Plan: Rectal bleeding with a history consistent with hemorrhoidal bleeding. Bright red blood per rectum she does have significant tender hemorrhoids identified on exam. Would recommend initial conservative management with fiber supplementation. Anusol cream may be of some benefit. Elective outpatient colonoscopy is advised this can be arranged at a later date through my office. (2) Atrial fibrillation: Code(s): I48.91 - Unspecified atrial fibrillation Status: Acute Assessment and Plan: Patient is atrial fibrillation. Given her rectal bleeding and history of peptic ulcer disease earlier in the year I would hold anticoagulation if at all possible. (3) COPD (chronic obstructive pulmonary disease): Code(s): J44.9 - Chronic obstructive pulmonary disease, unspecified Status: Chronic (4) Congestive heart failure (CHF): Code(s): I50.9 - Heart failure, unspecified Status: Acute (5) Peptic ulcer disease: Code(s): K27.9 - Peptic ulcer, site unspecified, unspecified as acute or chronic, without hemorrhage or perforation Status: Acute Assessment and Plan: Peptic ulcer disease identified in August. Follow-up EGD by Dr. Ulloa in October confirmed healing. Current bleeding does not appear related to this. This is felt to be healed at this point. (6) Anemia: Code(s): D64.9 - Anemia, unspecified Status: Acute Assessment and Plan: Patient has a history of chronic anemia. This is normochromic normocytic. MCV is 99. Hemoglobin is currently stable and not changed from previous labs. No additional GI workup this basis however colonoscopy is suggested because rectal bleeding. This can be arranged electively as an outpatient through my office. GI Consult Note Consult date/time: 08/10/20 16:08 HPI: Valorie Harris is a 75 year old female I am asked to see at the request of the emergency room. Patient in usual state of health. Passed some bright red blood per rectum today. Patient does not normally passed bright red blood but does have known history of hemorrhoids. These have been somewhat tender recently. In the ER she was confirmed to have hemorrhoids. Her hemoglobin is noted to be stable compared to previous exams. Patient denies any abdominal pain. The patient reports having gastric ulcer in August follow-up EGD in October confirm this is healed. Patient does have a history of atrial fibrillation but has not recently been taking anticoagulation. She is admitted because of dehydration. Review of Systems Review of Systems: All systems reviewed & are unremarkable except as noted in HPI and below FORMERLY [facility] Past Medical History Medical History (Updated 08/10/20 @ 16:11 by Igor Matt MD) Arterial stent thrombosis Left leg Atrial fibrillation Taken off of anticoagulation due to her peptic ulcer disease. 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 COPD (chronic obstructive pulmonary disease) Depression H/O: lung cancer Hyperlipidemia Hypertension Hypothyroidism Morbid obesity Peptic ulcer disease Peripheral artery disease Peripheral vascular disease Surgical History Surgical History H/O tubal ligation History of appendectomy History of esophagogastroduodenoscopy (EGD) Family History Family History Father Family history of malignant neoplasm Family history of arthritis Carcinoma of colon Sibling Family history of arthritis Family history of malignant neoplasm of breast in first degree relative Mother Family history of malignant neoplasm breast cancer developed to bone; Sibling Family history of ma
--- NOTE | 2020-08-10 16:49 | ADMGEN ---
This patient, Valorie Harris, was admitted to 2 Medical Room 244-. Patient/family oriented to hospital policies and general routines including ID bracelet, bed and alarms, visiting hours, pain management, procedures, bathroom and other care routines, personal items, smoking policy, room service/diet, and visiting hours. Information on how to activate the Rapid Response Team has been discussed. Patient/Family are encouraged to report perceived risks to care and to ask questions if they do not understand what they are told or what they should do.
[2020-08-10] MEDS: SODIUM CHLORIDE 0.9% IV 1,000 ML 125 ML IV CONT (18:07)
--- NOTE | 2020-08-10 19:01 | PM.IMHP ---
H&P: HPI History of Present Illness Date/Time: 08/10/20 19:01 Chief Complaint: Rectal bleed Narrative: Valorie Harris is a 75 year old female who resides at [facility]. The patient went to the bathroom this morning and found to quarter-sized blood clot came out of her rectum and then was dripping blood on the toilet. She has not had any more bloody stool since then. She has been on aspirin and and Xarelto. GI has been consulted and has already seen the patient. Is recommended that the patient be returned outpatient do visit GI and possibly do colonoscopy outpatient valenzuela. Patient's H&H is 9.6 and 32.5 which is at her baseline. It was noted that the patient has external hemorrhoid that is recommended for Anusol. The patient was admitted observation on date of service of 08/10/2020. Review of Systems Review of Systems: All systems reviewed & are unremarkable except as noted in HPI and below Constitutional: Constitutional: Reports as per HPI and Reports no additional constitutional complaints Eyes: Eyes: Reports as per HPI and Reports no additional eye complaints ENT: Reports system reviewed and no additional complaints, except as documented and Reports Normal hearing present Cardiovascular: Cardiovascular: Reports no additional cardiovascular complaints Respiratory: Respiratory: Reports no additional respiratory complaints and Reports no additional respiratory complaints Gastrointestinal: Gastrointestinal: Reports as per HPI and Reports no additional gastrointestinal complaints Musculoskeletal: Musculoskeletal: Reports no additional musculoskeletal complaints Integumentary/Breasts: Skin/Breast: Reports system reviewed and no additional complaints, except as docu and Reports as per HPI Neurologic: Reports system reviewed and no additional complaints, except as documented, Reports as per HPI and Reports Normal hearing present Psychiatric: Psychiatric: Reports no additional psychiatric complaints and Reports as per HPI Endocrine: Endocrine: Reports no additional endocrine complaints Hematologic/Lymphatic: Hematologic/Lymphatic: Reports no additional hematologic/lymphatic complaints Allergic/Immunologic: Allergic/Immunologic: Reports no additional allergic/immunologic complaints [facility] Past Medical History Medical History (Updated 08/10/20 @ 19:26 by Lisette De La Garza NP) Arterial stent thrombosis Left leg Atrial fibrillation Taken off of anticoagulation due to her peptic ulcer disease. 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[facility]; Dr Shi, pet walker; on home O2 COPD (chronic obstructive pulmonary disease) Depression H/O: lung cancer 2006 chemotherapy Hyperlipidemia Hypertension Hypothyroidism Morbid obesity Neuropathy Peptic ulcer disease Peripheral artery disease Peripheral vascular disease Surgical History Surgical History H/O tubal ligation History of appendectomy History of esophagogastroduodenoscopy (EGD) Family History Family History (Updated 08/10/20 @ 19:08 by Lisette De La Garza NP) Father Family history of malignant neoplasm Family history of arthritis Carcinoma of colon Sibling Family history of arthritis Mother Family history of malignant neoplasm breast cancer developed to bone; Other Family history of malignant neoplasm of bone Family history of thyroid disease Social History Social History (Updated 08/10/20 @ 19:08 by Lisette De La Garza NP) Social History: The patient is . She has 1 son that is her only child. He is a durable power transactional attorney for healthcare. The patient desires to be full code. She is wheelchair-bound and has home health coming about once a week. She is an ex-smoker. Smoking packs per day: 2 Smoking cigarettes per day: 40.0 Years smoked: 40 Smoking pack-years: 80.00 Smoking status: Former smoker Tobacco type: cigare
[2020-08-10 19:06] LABS: Hematocrit 31.6 % (37.0-47.0); Hemoglobin 9.8 g/dL (12.0-15.0)
[2020-08-10] MEDS: PREGABALIN (*CRX) 50 MG CAPSULE 200 MG PO (20:27)
[2020-08-10] MEDS: rOPINIRole HCL 0.25 MG TABLET PO (20:27)
[2020-08-10] MEDS: HYDROCORTISONE ACETATE 25 MG SUPPOSITORY RECTAL (20:28)
[2020-08-10] MEDS: SIMVASTATIN 20 MG TABLET PO (20:28)
[2020-08-10] MEDS: traMADol HCL (*CRX) 50 MG TABLET PO (20:28)
[2020-08-10] MEDS: carvediloL 3.125 MG TABLET PO (20:28)
[2020-08-10] MEDS: SACUBITRIL/VALSARTAN 49-51 MG TABLET 1 TABLET PO (20:28)
[2020-08-10] MEDS: PENTOXIFYLLINE 400 MG TABCR PO (20:28)
[2020-08-11] MEDS: traMADol HCL (*CRX) 50 MG TABLET PO (00:32)
[2020-08-11 01:43] LABS: Hematocrit 29.7 % (37.0-47.0); Hemoglobin 9.2 g/dL (12.0-15.0)
[2020-08-11] MEDS: LEVOTHYROXINE SODIUM 125 MCG TABLET PO (05:34)
[2020-08-11 06:00] VITALS: BP 109/55; PULSE 100; RESP 18; TEMP 36.1; O2SAT 96
[2020-08-11 06:19] LABS: Alanine Aminotransferase 10 U/L (4-35); Albumin Level 3.5 g/dL (3.5-5.1); Alkaline Phosphatase 93 U/L (38-126); Anion Gap 3 mmol/L (8-16); Aspartate Amino Transferase 18 U/L (14-36); Bilirubin,Total 0.4 mg/dL (0.2-1.3); Blood Urea Nitrogen 30 mg/dL (7-17); Calcium 8.4 mg/dL (8.4-10.2); Carbon Dioxide 38 mmol/L (22-30); Chloride 100 mmol/L (98-107); Estimated CRCL calculation 63 ml/min; Estimated Glomerular Filt Rate > 60; Glucose 93 mg/dL (65-105); Magnesium 1.4 mg/dL (1.6-2.3); Potassium 4.6 mmol/L (3.4-5.0); Sodium 141 mmol/L (137-145)
[2020-08-11 06:32] LABS: Basophils Absolute Auto 0.1 K/mm3 (0.0-0.1); Basophils Percent Auto 0.9 % (0.2-1.2); Eosinophils Absolute Auto 0.2 K/mm3 (0-0.3); Eosinophils Percent Auto 4.2 % (0-4.4); Hematocrit 32.3 % (37.0-47.0); Hemoglobin 9.5 g/dL (12.0-15.0); Immature Granulocyte Absolute 0.02 K/mm3 (0.00-0.031); Immature Granulocyte Percent A 0.4 % (0-0.5); Lymphocytes Absolute Auto 1.42 K/mm3 (0.9-3.2); Mean Corpuscular HGB Conc 29.4 g/dl (32-36); Mean Corpuscular Hemoglobin 29.1 pg (26-34); Mean Corpuscular Volume 98.8 fl (80-100); Mean Platelet Volume 11.9 fl (7.4-10.4); Monocytes Absolute Auto 0.6 K/mm3 (0.1-0.6); Monocytes Percent Auto 9.8 % (2.6-8.5); Neutrophils Absolute Auto 3.4 K/mm3 (1.3-6.7); Neutrophils Percent Auto 59.7 % (45.5-73.1); Platelet Count Result 157 k/mm3 (150-375); Red Blood Count 3.27 M/mm3 (4.2-5.4); Red Cell Distribution Width 14.7 % (11.5-14.5); White Blood Count 5.7 K/mm3 (4.5-10.0)
[2020-08-11 07:03] LABS: Anisocytosis 1+ (NORMAL); Hypochromasia 1+ (NORMAL); Platelet Estimate Adequate (Adequate)
[2020-08-11 08:00] VITALS: BP 126/73; PULSE 62; RESP 17; TEMP 36; O2SAT 100
[2020-08-11] MEDS: PREGABALIN (*CRX) 50 MG CAPSULE 200 MG PO (08:47)
[2020-08-11 08:48] VITALS: PULSE 77; O2SAT 96
[2020-08-11] MEDS: FUROSEMIDE 80 MG TABLET PO (08:48)
[2020-08-11] MEDS: SACUBITRIL/VALSARTAN 49-51 MG TABLET 1 TABLET PO (08:48)
[2020-08-11] MEDS: POTASSIUM CHLORIDE 20 MEQ TABLET.ER PO (08:48)
[2020-08-11] MEDS: PANTOPRAZOLE 40 MG TABLET PO (08:48)
[2020-08-11] MEDS: PENTOXIFYLLINE 400 MG TABCR PO (08:48)
[2020-08-11] MEDS: SERTRALINE HCL 25 MG TABLET PO (08:48)
[2020-08-11] MEDS: CYANOCOBALAMIN 1,000 MCG TABLET 1000 MCG PO (08:48)
[2020-08-11] MEDS: DIGOXIN TAB 125 MCG TABLET PO (08:48)
[2020-08-11] MEDS: CHOLECALCIFEROL 1,000 UNITS TABLET 1000 UNITS PO (08:49)
[2020-08-11 08:50] VITALS: PULSE 77
[2020-08-11] MEDS: carvediloL 3.125 MG TABLET PO (08:50)
[2020-08-11] MEDS: HYDROCORTISONE ACETATE 25 MG SUPPOSITORY RECTAL (08:50)
[2020-08-11 11:44] LABS: Hematocrit 31.9 % (37.0-47.0); Hemoglobin 9.6 g/dL (12.0-15.0)
--- NOTE | 2020-08-11 13:01 | PM.DS ---
DS: Admitting Diagnosis Admitting Diagnosis Admitting Diagnosis: Rectal bleeding DS: Discharge Diagnosis Discharge Diagnosis (1) Rectal bleeding: Code(s): K62.5 - Hemorrhage of anus and rectum Status: Acute Assessment and Plan: Presented with complaints of bright red bleeding per rectum. She was seen in consultation by Gastroenterology and this was felt to be secondary to and a tender hemorrhoid was identified on exam. Rectal bleeding resolved. She did not have any pain. This will be managed conservatively with daily fiber supplementation and Anusol suppository. Recommended Sitz baths 2-3 times per day for 10-15 minutes. She will need to follow-up with Dr. Matt as an outpatient and schedule an elective colonoscopy. (2) Anemia: Code(s): D64.9 - Anemia, unspecified Status: Acute Assessment and Plan: Patient has chronic anemia with very minimal decline from her baseline noted upon this hospitalization, which can be explained by rectal bleeding which resolved. H&H remained stable throughout her stay. Vital signs stable and there were no signs of continued blood loss. Her Xarelto will be held for approximately 4 days, at which time she will repeat an outpatient H&H with results to PCP. She will then continue her Xarelto if she has not had any further bleeding. (3) Chronic respiratory failure with hypoxia: Code(s): J96.11 - Chronic respiratory failure with hypoxia Status: Chronic Assessment and Plan: She is on chronic 2 L O2 per nasal cannula. Suspect this is secondary to COPD. She was asymptomatic and maintained adequate oxygen saturations on her typical 2 L. (4) Congestive heart failure (CHF): Code(s): I50.9 - Heart failure, unspecified Status: Acute Assessment and Plan: Clinically compensated. Patient was euvolemic. Continue with Coreg, Lasix, and Entresto. (5) COPD (chronic obstructive pulmonary disease): Code(s): J44.9 - Chronic obstructive pulmonary disease, unspecified Status: Chronic Assessment and Plan: Continue supplemental oxygen as above. Continue Anoro Ellipta. (6) Hypertension: Code(s): I10 - Essential (primary) hypertension Status: Chronic Assessment and Plan: Blood pressure monitored during her stay and remained well controlled. Continue her home antihypertensive regimen including carvedilol, Entresto, and Lasix. (7) Atrial fibrillation: Code(s): I48.91 - Unspecified atrial fibrillation Status: Acute Assessment and Plan: Rate controlled. Continue Coreg. Her Xarelto will be held for 4 days until repeat H&H performed as an outpatient as noted above. (8) Hypothyroidism: Code(s): E03.9 - Hypothyroidism, unspecified Status: Chronic Assessment and Plan: TSH is within normal limits. Continue levothyroxine. DS: Summary Hospital Course Reason for hospitalization: rectal bleed Hospital Course: Date of admission: 08/10/2020 Date of discharge: 08/11/2020 Valorie Harris is a 75-year-old female with history of atrial fibrillation, CHF, COPD, hypertension, hyperlipidemia, PUD, and multiple other comorbidities who presented to the emergency department on 08/10/2020 from assisted living facility with complaints of rectal bleeding, stating that she passed a quarter-sized clot of bright red blood per rectum that morning. She does report a history of hemorrhoids with intermittent bleeding. Upon presentation to the emergency department, vital signs stable, H&H mildly decreased, BUN and creatinine slightly elevated with additional electrolytes stable. She was admitted to the hospitalist service for further evaluation and management and was seen in consultation by GI. please see above for further details. Rectal bleeding stopped and H&H remained stable. She began feeling much better. Given her overall improvement and stable labs, she was determined
== END 2020-08-11 14:00 ==
LOC: ANHED 11:05 → ANH2MED 14:33
PROVIDERS: Nurse Practitioner; Physician Assistant; Admitting Provider Family Medicine; Emergency Provider Emergency Medicine; PCP Nurse Practitioner Family; Visit Provider Family Medicine
DX: K62.5 Hemorrhage of anus and rectum (principal); J96.11 Chronic respiratory failure with hypoxia; D64.9 Anemia, unspecified; J44.9 Chronic obstructive pulmonary disease, unspecified; E78.5 Hyperlipidemia, unspecified; I11.0 Hypertensive heart disease with heart failure; I48.91 Unspecified atrial fibrillation; I50.9 Heart failure, unspecified; G62.9 Polyneuropathy, unspecified; E03.9 Hypothyroidism, unspecified; F32.9 Major depressive disorder, single episode, unspecified; I73.9 Peripheral vascular disease, unspecified; K27.9 Peptic ulcer, site unspecified, unspecified as acute or chronic, without hemorrhage or perforation; E66.01 Morbid (severe) obesity due to excess calories; Z68.41 Body mass index [BMI] 40.0-44.9, adult; Z85.118 Personal history of other malignant neoplasm of bronchus and lung; Z87.891 Personal history of nicotine dependence; Z95.820 Peripheral vascular angioplasty status with implants and grafts; Z79.82 Long term (current) use of aspirin; Z79.01 Long term (current) use of anticoagulants
CPT/HCPCS: 36415; 80053; 83735; 84443; 85014; 85018; 85025; 85610; 85730; 86850; 86900; 86901; 96361; 96365; 96366; 99285; A9270; G0378; J0131; J7030

== ENCOUNTER 2020-08-24 11:45 | Inpatient (IN) | payer MEDICARE, SELFPAY ==
[2020-08-24] VITALS (26 sets, daily range): BP systolic 89–145; BP diastolic 22–132; PULSE 69–102; RESP 9–26; TEMP 36.4–36.7; O2SAT 88–100; BMI 40.9
--- NOTE | ~2020-08-24 | XR_ITS ---
XR chest 1V 08/24/2020 12:25 Indication: Transient alteration of awareness Procedure: AP view of the chest Comparison: Comparison to multiple prior studies sequentially, with oldest reviewed study dated 08/2006. 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 Cardiomegaly. There is an endovascular stent in the thoracic aorta. Th ere is atherosclerosis. No acute focal pneumonia, edema, effusion or pneumothorax. Impression: 1: No acute cardiopulmonary disease. No significant interval change. Reviewed, dictated and finalized at location A. SFORCE CONSULTANT Impression: 1: No acute cardiopulmonary disease. No significant interval change.
--- NOTE | ~2020-08-24 | CT_ITS ---
EXAMINATION: CT brain wo con DATE: 08/24/2020 12:20 INDICATION: Altered mental status TECHNIQUE: Computed tomography (CT) of the head was performed without intravenous contrast. The mA wa s adjusted according to patient size. Iterative reconstruction technique was employed. Exam dose: 60 5.33 mGy-cm total exam DLP. COMPARISON: 12/17/2019 CT brain 11/18/2019 CT brain FINDINGS: The examination is limited by motion artifact. No intracranial mass lesion or hemorrhage or recent cerebrovascular accident is evident. Bilateral vertebral artery and carotid siphon and supraclinoid internal carotid artery calcifications . No intracranial mass lesion or hemorrhage or recent cerebrovascular accident is evident. No midline s hift or mass effect effect. No subdural or epidural hematoma. No apparent skull fracture is detected. Included paranasal sinuses and mastoid air cells appear unrem arkable. IMPRESSION: Limited examination due to motion artifact; no acute intracranial finding is noted. Reviewed, dictated and finalized at Location A. Reviewed, dictated and finalized at location B. CARDIOVASCULAR SERVICE LINE
--- NOTE | 2020-08-24 11:43 | ED.OVERDOSE ---
HPI - Overdose General Chief Complaint: Altered Mental Status Stated Complaint: OD Source: EMS Mode of arrival: EMS Limitations: clinical condition History of Present Illness HPI Narrative: Patient is a 75-year-old female with a history of atrial fibrillation, not currently anticoagulated due to history of GI bleeding, chronic tramadol use, hypertension, COPD on 2 L via NC, who presents for evaluation of altered mental status. Patient was found had assisted living facility, so [facility], with decreased responsiveness. In the past this has been due to accidental opiate overdose, so patient has Narcan at bedside that was given to her, she was given 8 mg intranasal total with good improvement in her mentation. EMS was called and patient was transported to our facility. The time of assessment, patient is somnolent, able to state her name. Responsive to loud verbal and painful stimuli. No evidence of injury or trauma. Grossly moving all extremities. No other history could be obtained. Related Data Home Medications Medication Instructions Recorded Confirmed Entresto 1 tablet PO BID 10/22/19 08/24/20 carvedilol [Coreg] 3.125 mg PO BID 10/22/19 08/24/20 digoxin 0.125 mcg PO QAM 10/22/19 08/24/20 furosemide 80 mg PO DAILY 10/22/19 08/24/20 pantoprazole [Protonix] 40 mg PO QAM 10/22/19 08/24/20 pentoxifylline 400 mg PO BID 10/22/19 08/24/20 pregabalin [Lyrica] 200 mg PO BID 10/22/19 08/24/20 sertraline [Zoloft] 25 mg PO QAM 10/22/19 08/24/20 simvastatin [Zocor] 20 mg PO HS 10/22/19 08/24/20 tramadol [Ultram] 50 mg PO TID 10/22/19 08/24/20 Anoro Ellipta 1 inh INHALATION DAILY 08/10/20 08/24/20 B12 Active 1,000 mcg PO DAILY 08/10/20 08/24/20 Digestive Advantage Probiotic 2 cap PO BID 08/10/20 08/24/20 cholecalciferol (vitamin D3) 25 mcg PO DAILY 08/10/20 08/24/20 [Vitamin D3] levothyroxine [Synthroid] 125 mcg PO DAILY 08/10/20 08/24/20 oxycodone-acetaminophen 1 tablet PO Q12H PRN 08/10/20 08/24/20 ropinirole [Requip] 0.25 mg PO HS 08/10/20 08/24/20 Adult Low Dose Aspirin 08/24/20 potassium chloride 20 meq PO DAILY 08/24/20 08/24/20 rivaroxaban [Xarelto] 20 mg PO QPM 08/24/20 08/24/20 Allergies Allergy/AdvReac Type Severity Reaction Status Date / Time No Known Allergies Allergy Verified 08/24/20 12:53 Review of Systems Review of Systems: ROS unobtainable: Yes unobtainable due to mental status PMFSH Past Medical History Medical History Arterial stent thrombosis Left leg Atrial fibrillation Taken off of anticoagulation due to her peptic ulcer disease. 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[facility]; Dr Shi, vp medical; on home O2 COPD (chronic obstructive pulmonary disease) Depression H/O: lung cancer 2005 chemotherapy Hyperlipidemia Hypertension Hypothyroidism Morbid obesity Neuropathy Peptic ulcer disease Peripheral artery disease Peripheral vascular disease Surgical History Surgical History H/O tubal ligation History of appendectomy History of esophagogastroduodenoscopy (EGD) Family History Family History (Updated 08/10/20 @ 19:08 by Lisette De La Garza NP) Father Family history of malignant neoplasm Family history of arthritis Carcinoma of colon Sibling Family history of arthritis Mother Family history of malignant neoplasm breast cancer developed to bone; Other Family history of malignant neoplasm of bone Family history of thyroid disease Social History Social History Social History: The patient is . She has 1 son that is her only child. He is a durable power contract attorney for healthcare. The patient desires to be full code. She is wheelchair-bound and has home health coming about once a week. She is an ex-smoker. Smoking packs per day: 2 Smoking cigarettes per
--- NOTE | 2020-08-24 11:51 | ECG_ITS ---
Measurements Intervals Desdemona Rate: 87 P: SD: 0 QRS: 21 QRSD: 93 T: 92 QT: 329 QTc: 397 Interpretive Statements ATRIAL FIBRILLATION VENTRICULAR PREMATURE COMPLEX NONSPECIFIC ST & T-WAVE ABNORMALITY- HIGH LATERAL LEADS BASELINE ARTIFACT- I, II, III, AVF ABNORMAL ECG Electronically Signed On 08-24-2020 12:58:36 [employer] SPECIALIST by Jason Richards D.O.
[2020-08-24] MEDS: NALOXONE HCL INJ 2 MG/2 ML AMP IV PUSH (11:56)
[2020-08-24 12:08] LABS: Basophils Absolute Auto 0.1 K/mm3 (0.0-0.1); Basophils Percent Auto 0.7 % (0.2-1.2); Eosinophils Absolute Auto 0.3 K/mm3 (0-0.3); Eosinophils Percent Auto 3.7 % (0-4.4); Hematocrit 34.5 % (37.0-47.0); Hemoglobin 10.4 g/dL (12.0-15.0); Immature Granulocyte Absolute 0.01 K/mm3 (0.00-0.031); Immature Granulocyte Percent A 0.1 % (0-0.5); Lymphocytes Absolute Auto 1.46 K/mm3 (0.9-3.2); Lymphocytes Percent Auto 19.4 % (18.3-44.2); Mean Corpuscular HGB Conc 30.1 g/dl (32-36); Mean Corpuscular Hemoglobin 29.1 pg (26-34); Mean Corpuscular Volume 96.6 fl (80-100); Mean Platelet Volume 11.2 fl (7.4-10.4); Monocytes Absolute Auto 0.7 K/mm3 (0.1-0.6); Monocytes Percent Auto 9.7 % (2.6-8.5); Neutrophils Percent Auto 66.4 % (45.5-73.1); Platelet Count Result 193 k/mm3 (150-375); Red Blood Count 3.57 M/mm3 (4.2-5.4); Red Cell Distribution Width 14.2 % (11.5-14.5); White Blood Count 7.5 K/mm3 (4.5-10.0)
[2020-08-24 12:13] LABS: pH ABG 7.358 (7.350-7.450)
[2020-08-24 12:14] LABS: Base Excess ABG 6.9 mEq/l (+/-2.0); Oxygen Saturation ABG 95.7 % (95.0-100.0); PCO2 ABG 61.8 mmHg (35.0-45.0); PO2 ABG 84.2 mmHg (80.0-100.0); Total Hemoglobin 11.1 g/dL (12.0-18.0)
[2020-08-24 12:15] LABS: Oxygen Content ABG 14.9 %vol (16.0-22.0); Oxyhemoglobin 95.1 % THb (90.0-100.0)
[2020-08-24 12:16] LABS: Carboxyhemoglobin 0.3 % THb (0-2.0); Fractional Inspired Oxygen 21 %; Methemoglobin ABG 0.3 %THb (0-1.5); PO2 FiO2 Ratio Arterial Blood 4.01 %; Reduced Hemoglobin 4.3 %THb (0-5.0); Site Drawn LEFT BRACHIAL
[2020-08-24 12:20] LABS: INR 1.3; Prothrombin Time 16.6 Seconds (11.1-14.7)
[2020-08-24 12:21] LABS: Partial Thromboplastin Time 35.4 SECONDS (22.3-36.8)
[2020-08-24 12:23] LABS: Alanine Aminotransferase 11 U/L (4-35); Albumin Level 4.2 g/dL (3.5-5.1); Alkaline Phosphatase 99 U/L (38-126); Aspartate Amino Transferase 18 U/L (14-36); Bilirubin,Total 0.4 mg/dL (0.2-1.3); Blood Urea Nitrogen 31 mg/dL (7-17); Calcium 8.9 mg/dL (8.4-10.2); Carbon Dioxide > 40 mmol/L (22-30); Chloride 95 mmol/L (98-107); Estimated Glomerular Filt Rate 44; Glucose 121 mg/dL (65-105); Potassium 4.3 mmol/L (3.4-5.0); Sodium 140 mmol/L (137-145)
--- NOTE | 2020-08-24 12:31 | PC.NURSE ---
Bipap placed per RT. Pt responds to deep painful stimuli.
[2020-08-24 12:32] LABS: Troponin I < 0.012 ng/mL (0.000-0.034)
[2020-08-24] MEDS: ONDANSETRON INJ 4 MG/2 ML VIAL IV PUSH (12:37)
[2020-08-24] MEDS: SODIUM CHLORIDE 0.9% IV 1,000 ML 999 ML IV CONT ×2 (12:37→13:02)
[2020-08-24 13:07] LABS: Glucose Point of Care 119 (65-105)
[2020-08-24 13:11] LABS: Add Urine Microscopic? NO; Appearance Urine Clear (Clear); Bilirubin Urine Negative (Negative); Blood Urine Negative (Negative); Color Urine Yellow (Yellow); Glucose Urine UA Negative (Negative); Ketones Urine Negative (Negative); Leukocyte Esterase Ur Negative LEU/UL (Negative); Mucus Urine Rare /lpf; Nitrate Urine Negative (Negative); Protein Urine Negative (Negative); RBC Urine 0-2 /hpf (0-2); Specific Grav Ur 1.012 (1.001-1.035); Urobilinogen Urine Negative mg/dL (<2.0); WBC Urine 0-3 /hpf
[2020-08-24 13:27] LABS: Acetaminophen < 10 ug/mL (10-30); Ethanol < 10 mg/dL (<10); Salicylate < 1.0 mg/dL (2-20)
[2020-08-24 13:30] LABS: Ammonia < 9 umol/L (9-30)
--- NOTE | 2020-08-24 13:40 | PC.NURSE ---
Pt occasionally awakens, yells out my hips but will not answer questions. Pt making attempts to move when asked what she wants, states I want to go on my side! . Pt then falls back asleep.
[2020-08-24 13:45] LABS: NT Pro B Type Natriuretic Pept 406 PG/ML (5-100)
[2020-08-24 13:48] LABS: Amphetamine Screen Urine Negative (Negative); Barbiturate Screen Urine Negative (Negative); Benzodiazepines Screen Urine Negative (Negative); Cannabinoid Screen Urine Negative (Negative); Cocaine Screen Urine Negative (Negative); Methadone Screen Urine Negative (Negative); Opiate Screen Urine Negative (Negative); Phencyclidine Screen Urine Negative (Negative)
[2020-08-24 13:51] LABS: Creatine Kinase 63 U/L (30-135)
[2020-08-24 14:36] LABS: Alveolar/Arterial O2 Gradient 76.9 mmHg; Base Excess ABG 6.1 mEq/l (+/-2.0); Carboxyhemoglobin 0.3 % THb (0-2.0); Fractional Inspired Oxygen 30 %; HCO3 ABG 33.4 mEq/l (22.0-26.0); Methemoglobin ABG 0.3 %THb (0-1.5); Oxygen Content ABG 13.3 %vol (16.0-22.0); Oxyhemoglobin 89.1 % THb (90.0-100.0); PO2 ABG 62.6 mmHg (80.0-100.0); PO2 FiO2 Ratio Arterial Blood 2.09 %; Reduced Hemoglobin 10.3 %THb (0-5.0); Total Hemoglobin 10.6 g/dL (12.0-18.0)
[2020-08-24 14:39] LABS: Modified Allen's Test Pass; PCO2 ABG 63.3 mmHg (35.0-45.0); Site Drawn LEFT BRACHIAL
[2020-08-24 14:40] LABS: Device BIPAP
[2020-08-24 14:40] LABS: Device BIPAP
[2020-08-24 14:41] LABS: Alveolar/Arterial O2 Gradient 96.7 mmHg
[2020-08-24 14:42] LABS: Expiratory Pressure 5 cmH2O; Inspiratory Pressure 12 cmH2O
--- NOTE | 2020-08-24 15:13 | PC.NURSE ---
Narcan stopped on patient per v.o. Dr. Singh. Preparing to admit, awaiting admission orders.
--- NOTE | 2020-08-24 15:14 | PC.NURSE ---
RT at bedside to adjust settings on bipap.
--- NOTE | 2020-08-24 15:18 | PC.NURSE ---
Pt awakens to name for Dr. Singh, c/o hip pain and asks what she is laying on. LILIA Knox, to see patient and make decision regarding patient's admission bed.
--- NOTE | 2020-08-24 15:27 | PC.NURSE ---
Lisette Loredo NP, at bedside. Pt is now alert, answering questions. States does not recall what happened or what circumstances brought her here. Continue to monitor bp.
--- NOTE | 2020-08-24 16:10 | PC.NURSE ---
BOOM faxed. To room to covid swab the patient. Pt is now a/o x3. States the last thing she remembers is attempting to take her pills for her back pain and then some people came in that I didn't know . Pt states does not remember anything from that point on.
--- NOTE | 2020-08-24 17:55 | PM.IMHP ---
H&P: HPI History of Present Illness Date/Time: 08/24/20 17:55 Chief Complaint: confusion Narrative: Valorie Harris is a 75 year old female Who resides at [facility]. The patient was last admitted here on 08/10 with his blood in her stool and the patient was seen by GI specialist at that time. It was reported that she just had a tender hemorrhoid that was identified. Her rectal bleeding resolved. She was managed conservatively with daily fiber supplementation an Anusol suppository. She was recommended to take a daily Sitz bath. She was seen by Dr. leiva at that time. Patient was to schedule an outpatient colonoscopy with Dr. fournier as elective colonoscopy in the near future. The patient is chronically on oxygen at home 2 L per nasal cannula for COPD. She also has congestive heart failure she has been on Coreg Lasix and Entresto. The patient returns here today because she was unresponsive at the [facility] apartment. She has had an accidental overdose of opiates in the past. However the patient has her medications distributed through the people that work at [employer]. Patient was only minimally responsive to loud verbal and painful stimuli. Initially patient was put on BiPAP with settings at 12/6. The patient was minimally responsive. I recommended that the patient's CPAP be increased and after they did that the patient subsequently awoke and was moving all extremities. The patient became very restless down stairs in the emergency room. She was answering all my questions. She is wanting me to update her son. She was not sure exactly what happened she asked why she was here. I told her that she had become unresponsive they thought maybe she had taken some narcotics and I gave her Narcan and she only minimally arouse with that. I asked the patient if she does have sleep apnea and she stated she has never been tested for it. The patient stated she has not taken any new medications. Her blood pressure was on the soft side and she was given IV fluids in the emergency room. chest x-ray was read as no acute cardiopulmonary disease. Head CT was limited due to motion artifact. No acute intracranial findings noted. H&H 10.4 and 34.5. ABGs pH 7.3 fluid 0 pCO2 63.3. PO2 62.6. Patient was admitted to inpatient services on the date of 08/24/2020 Review of Systems Review of Systems: All systems reviewed & are unremarkable except as noted in HPI and below Constitutional: Constitutional: Reports as per HPI and Reports no additional constitutional complaints Eyes: Eyes: Reports as per HPI and Reports no additional eye complaints ENT: Reports system reviewed and no additional complaints, except as documented and Reports Normal hearing present Cardiovascular: Cardiovascular: Reports no additional cardiovascular complaints Respiratory: Respiratory: Reports no additional respiratory complaints and Reports no additional respiratory complaints Gastrointestinal: Gastrointestinal: Reports as per HPI and Reports no additional gastrointestinal complaints Musculoskeletal: Musculoskeletal: Reports no additional musculoskeletal complaints Integumentary/Breasts: Skin/Breast: Reports system reviewed and no additional complaints, except as docu and Reports as per HPI Neurologic: Reports system reviewed and no additional complaints, except as documented, Reports as per HPI and Reports Normal hearing present Psychiatric: Psychiatric: Reports no additional psychiatric complaints and Reports as per HPI Endocrine: Endocrine: Reports no additional endocrine complaints Hematologic/Lymphatic: Hematologic/Lymphatic: Reports no additional hematologic/lymphatic complaints Allergic/Immunologic: Allergic/Immunologic: Reports no additional allergic/immunologic complaints [facility] Past Medical History Medical History (Updated 08/24/20 @ 18:31 by Lisette De La Garza NP) Arterial stent thrombosis Left leg Atrial fibrillation Taken off of ant
--- NOTE | 2020-08-24 18:08 | ADMGEN ---
This patient, Valorie Harris, was admitted to IMU Room 202-01 on 08/24/2020 at 1640. Patient/family oriented to hospital policies and general routines including ID bracelet, bed and alarms, visiting hours, pain management, procedures, bathroom and other care routines, personal items, smoking policy, room service/diet, and visiting hours. Information on how to activate the Rapid Response Team has been discussed. Patient/Family are encouraged to report perceived risks to care and to ask questions if they do not understand what they are told or what they should do.
[2020-08-24] MEDS: PREGABALIN (*CRX) 50 MG CAPSULE 200 MG PO (18:29)
[2020-08-24] MEDS: SODIUM CHLORIDE 0.9% IV 1,000 ML 125 ML IV CONT (18:29)
[2020-08-24] MEDS: rOPINIRole HCL 0.25 MG TABLET PO (19:47)
[2020-08-24] MEDS: RIVAROXABAN 20 MG TABLET PO (19:47)
[2020-08-24] MEDS: SACUBITRIL/VALSARTAN 49-51 MG TABLET 1 TABLET PO (19:47)
[2020-08-24] MEDS: SIMVASTATIN 20 MG TABLET PO (19:47)
[2020-08-24] MEDS: PENTOXIFYLLINE 400 MG TABCR PO (19:47)
[2020-08-24 23:31] LABS: SARS-CoV-2 RNA PCR Negative
[2020-08-25] VITALS (13 sets, daily range): BP systolic 96–117; BP diastolic 42–90; PULSE 70–108; RESP 16–26; TEMP 36.1–36.9; O2SAT 90–99
[2020-08-25 04:47] LABS: Basophils Absolute Auto 0.1 K/mm3 (0.0-0.1); Basophils Percent Auto 0.8 % (0.2-1.2); Eosinophils Absolute Auto 0.1 K/mm3 (0-0.3); Hematocrit 30.8 % (37.0-47.0); Immature Granulocyte Absolute 0.02 K/mm3 (0.00-0.031); Immature Granulocyte Percent A 0.3 % (0-0.5); Lymphocytes Percent Auto 21.9 % (18.3-44.2); Mean Corpuscular HGB Conc 29.2 g/dl (32-36); Mean Corpuscular Hemoglobin 29.3 pg (26-34); Mean Corpuscular Volume 100.3 fl (80-100); Mean Platelet Volume 11.4 fl (7.4-10.4); Monocytes Absolute Auto 0.6 K/mm3 (0.1-0.6); Monocytes Percent Auto 9.4 % (2.6-8.5); Neutrophils Absolute Auto 4.2 K/mm3 (1.3-6.7); Neutrophils Percent Auto 65.6 % (45.5-73.1); Platelet Count Result 153 k/mm3 (150-375); Red Blood Count 3.07 M/mm3 (4.2-5.4); Red Cell Distribution Width 14.4 % (11.5-14.5); White Blood Count 6.4 K/mm3 (4.5-10.0)
[2020-08-25 05:45] LABS: Thyroid Stimulating Hormone Reflex 0.492 uIU/mL (0.465-4.68)
[2020-08-25] MEDS: KETOROLAC 30 MG/ML VIAL (*BKC) IV PUSH (05:46)
[2020-08-25] MEDS: LEVOTHYROXINE SODIUM 125 MCG TABLET PO (05:46)
[2020-08-25 06:36] LABS: Alanine Aminotransferase 9 U/L (4-35); Albumin Level 3.3 g/dL (3.5-5.1); Alkaline Phosphatase 83 U/L (38-126); Anion Gap 8 mmol/L (8-16); Aspartate Amino Transferase 23 U/L (14-36); Bilirubin,Total 0.4 mg/dL (0.2-1.3); Blood Urea Nitrogen 31 mg/dL (7-17); Calcium 8.5 mg/dL (8.4-10.2); Carbon Dioxide 30 mmol/L (22-30); Chloride 103 mmol/L (98-107); Estimated CRCL calculation 57 ml/min; Estimated Glomerular Filt Rate 54; Glucose 87 mg/dL (65-105); Lactate Dehydrogenase 686 U/L (313-618); Magnesium 1.2 mg/dL (1.6-2.3); Potassium 4.4 mmol/L (3.4-5.0); Sodium 141 mmol/L (137-145)
[2020-08-25] MEDS: SERTRALINE HCL 25 MG TABLET PO (11:47)
[2020-08-25] MEDS: SACUBITRIL/VALSARTAN 49-51 MG TABLET 1 TABLET PO ×2 (11:49→17:25)
--- NOTE | 2020-08-25 11:49 | WPDURCON ---
Assessment and Plan Assessment and plan (1) Urinary retention: Code(s): R33.9 - Retention of urine, unspecified Status: Acute Assessment and Plan: Start Flomax. Keep sevilla in for duration of stay, ok to do a voiding trial prior to discharge. Patient should have a sevilla re-placed if she is unable to urinate or empty with PVR of >250cc. Potentially d/t narcotic use versus atonic bladder. No further evaluation needed at this time. BARB in 12/2019 negative for urologic concern. Urology Consult Note HPI Date Seen: 08/25/20 Requesting Physician: Marin Boyle MD Primary Care Provider: Ashanti Rodrigez, [employer] MACHINE-BC Consult Narrative Narrative: Valorie Harris is a 75 year old female who presented to the ER [facility]. She has been known to overdose on Tramadol, but it has recently been taken from her so she cannot manage it herself. She was given two doses of Narcan, which caused her to become more responsive. She is a patient of Dr. Quiroz'lindsay who was previously evaluated in the office for urinary retention s/p a hospitalization for COPD in 11/2019. She had a sevilla placed at that time and a voiding trial in the office and passed without difficulty. She states she hasn't had a problem urinating since until she came into the hospital yesterday. She denies straining or hesitancy, but does state she has urgency and urge incontinence but associates that with her diuretics. She denies hematuria, dysuria, flank or abdominal pain. WBC is 6.2, Creatinine was 1.20 and is now 1.00 after sevilla placement. Her sevilla was placed and found to have 800cc of yellow urine in the bladder but her UA was normal. She is not taking any anticholinergics, but narcotics are a known risk for difficulty with urination amongst her other co-morbidities. She denies previous UTI's. Review of Systems Cardiovascular: Cardiovascular: Denies chest pain Respiratory: Respiratory: Reports dyspnea on exertion Gastrointestinal: Gastrointestinal: Denies abdominal pain, Denies nausea and Denies vomiting Genitourinary: Genitourinary: Denies hematuria, Reports urinary frequency, Reports nocturia, Denies dysuria, Denies flank pain, Reports urinary incontinence, Reports urinary hesitancy and Reports urinary urgency PMFSH Past Medical History Medical History Arterial stent thrombosis Left leg Atrial fibrillation Taken off of anticoagulation due to her peptic ulcer disease. 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; on home O2 COPD (chronic obstructive pulmonary disease) Depression H/O: lung cancer 2005 chemotherapy Hemorrhoids Hyperlipidemia Hypertension Hypothyroidism Morbid obesity Neuropathy Peptic ulcer disease Peripheral artery disease Peripheral vascular disease Surgical History Surgical History H/O tubal ligation History of appendectomy History of esophagogastroduodenoscopy (EGD) Family History Family History Father Family history of malignant neoplasm Family history of arthritis Carcinoma of colon Sibling Family history of arthritis Mother Family history of malignant neoplasm breast cancer developed to bone; Other Family history of malignant neoplasm of bone Family history of thyroid disease Social History Social History Social History: The patient is . She has 1 son that is her only child. He is a durable power state's attorney for healthcare. The patient desires to be full code. She is wheelchair-bound and has home health coming about once a week. She is an ex-smoker. 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 Smoking packs per day: 1 Smoking cigarettes per d
[2020-08-25] MEDS: CHOLECALCIFEROL 1,000 UNITS TABLET 1000 UNITS PO (11:50)
[2020-08-25] MEDS: PENTOXIFYLLINE 400 MG TABCR PO ×2 (11:50→17:25)
[2020-08-25] MEDS: CYANOCOBALAMIN 1,000 MCG TABLET 1000 MCG PO (11:50)
[2020-08-25] MEDS: PANTOPRAZOLE 40 MG TABLET PO (11:51)
[2020-08-25] MEDS: DIGOXIN TAB 125 MCG TABLET PO (11:52)
[2020-08-25] MEDS: PREGABALIN (*CRX) 50 MG CAPSULE 200 MG PO ×2 (12:02→17:24)
--- NOTE | 2020-08-25 12:42 | PM.IMPN ---
Progress Note: A&P Assessment and Plan (1) Encephalopathy acute: Code(s): G93.40 - Encephalopathy, unspecified Status: Acute Assessment and Plan: Likely secondary to opiate use however patient minimally responsive after Narcan Now resolved after BiPAP overnight. (2) Hypercarbia: Code(s): R06.89 - Other abnormalities of breathing Status: Acute Assessment and Plan: Resolved after continuous BiPAP (3) Chronic respiratory failure with hypoxia: Code(s): J96.11 - Chronic respiratory failure with hypoxia Status: Chronic Assessment and Plan: Continue supplemental O2 as at home BiPAP at night time . (4) Urinary retention: Code(s): R33.9 - Retention of urine, unspecified Status: Acute Assessment and Plan: S/p Khan insertion. Appreciate Urology note. (5) COPD (chronic obstructive pulmonary disease): Code(s): J44.9 - Chronic obstructive pulmonary disease, unspecified Status: Chronic Assessment and Plan: Not on exacerbation. (6) Atrial fibrillation: Code(s): I48.91 - Unspecified atrial fibrillation Status: Acute Assessment and Plan: Anticoagulated Rate controlled Subjective Date/time seen: 08/25/20 12:42 I feel fine. Review of Systems Review of Systems: Narrative: Patient was found unresponsive at assisted living facility where she resides had been in her usual state of health prior to this. ENT: Comments: no throat pain. Cardiovascular: Comments: no chest pain. Respiratory: Comments: no cough, no sputum production, no sob Gastrointestinal: Comments: no n/v/abdominal pain. Genitourinary: Genitourinary: Reports other (uinary retention.) Musculoskeletal: Comments: no muscle aches or pain. Neurologic: Comments: AMS Hematologic/Lymphatic: Comments: no LAP Exam Narrative: Exam Narrative: Chronically ill looking, lying in bed, NAD. Const: General: cooperative, comfortable, no acute distress, alert, awake and Physically active Nutritional Appearance: overweight Orientation/consciousness: patient oriented x3 Limitations: no limitations HENMT: Head: normal to inspection and normocephalic Face and sinus: normal facial exam Eyes: General: appearance normal, both eyes and all related structures Pupils: Equal, round and reactive pupils present EOM: EOMs intact bilaterally Neck: Neck: no lymphadenopathy, supple and no JVD Lymphatic: no lymphadenopathy noted Resp: Effort & Inspection: normal respiratory effort and able to speak in complete sentences Auscultation: clear to auscultation bilaterally Cardio: Rate: regular rate Rhythm: regular rhythm GI: GI Palp: Yes Soft to palpation and Yes No hepatosplenomegaly present Skin: General skin exam: normal color Lesions: no lesions Rashes: no rashes Wounds: no wounds Neuro: General: patient oriented x3 and CN's II-XI intact bilaterally Cranial nerves: Yes CN's II-XII intact bilaterally Cognition (Neuro): normal cognition Speech: normal speech Motor exam (neuro): 5/5 motor strength present throughout Extrem: General: full ROM and no pedal edema Objective Data Vital Signs Vital Signs: Vital Signs - 24 hr 08/24/20 12:46 08/24/20 13:11 08/24/20 13:15 Temperature Pulse Rate 74 91 89 Respiratory Rate 26 H 21 H 20 Blood Pressure 89/54 L 124/99 H Pulse Oximetry 100 95 98 08/24/20 13:31 08/24/20 13:42 08/24/20 13:44 Temperature Pulse Rate 76 88 79 Respiratory Rate 14 15 17 Blood Pressure 145/132 H 104/54 L 104/54 L Pulse Oximetry 93 95 92 08/24/20 13:46 08/24/20 14:24 08/24/20 14:36 Temperature Pulse Rate 87 86 81 Respiratory Rate 12 9 L 13 Blood Pressure 99/41 L 99/22 L 96/42 L Pulse Oximetry 92 90 94 08/24/20 14:46 08/24/20 15:07 08/24/20 15:09 Temperature Pulse Rate 82 70 90 Respiratory Rate 15 13 20 Blood Pressure 93/49 L 104/62 Pulse Oximetry 88 L 95 96 08/24/20 16:26 08/24/20 16:40 08/24/20 16:
--- NOTE | 2020-08-25 15:01 | WPDNEURCNPN ---
Assessment and Plan Assessment and plan (1) Encephalopathy acute: Code(s): G93.40 - Encephalopathy, unspecified Status: Acute (2) Neuropathy: Code(s): G62.9 - Polyneuropathy, unspecified Status: Chronic (3) Chronic respiratory failure with hypoxia: Code(s): J96.11 - Chronic respiratory failure with hypoxia Status: Chronic (4) Urinary retention: Code(s): R33.9 - Retention of urine, unspecified Status: Acute (5) Congestive heart failure (CHF): Code(s): I50.9 - Heart failure, unspecified Status: Acute Additional Plan stable at present treatment can be continued as such EEG tomorrow and urologist's recommendations noted Consult date: 08/25/20 Time Seen: 15:00 HPI: Valorie Harris is a 75 year old female admitted to the hospital patient resides at [facility] to this [facility] on 08/10 as well and she was found to have blood in the stool and evaluated by the GI specialist chronically ill on oxygen at home 2L per nasal to the ongoing history of congestive heart failure for which she takes Coreg, Lasix and entresto. Patient was reportedly found unresponsive at the [facility] apartment she has had accidental overdose of opiates in the past as well at the time of initial evaluation she was only minimally responsive to loud verbal and painful stimuli was placed on BiPAP subsequently she woke up and was able to move all extremities though she became very restless in the emergency room he was unsure what has happened she has no been taking any new medication evaluation up until now documented her CBC without leukocytosis hemoglobin 9.0 and the platelet count of 153 normal BMP with obviously abnormal ABGs initially, CT scan of the head without any major bleed and blood cultures are negative. This stage she is afebrile Review of Systems Review of Systems: All systems reviewed & are unremarkable except as noted in HPI and below [facility] Past Medical History Medical History Arterial stent thrombosis Left leg Atrial fibrillation Taken off of anticoagulation due to her peptic ulcer disease. 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 COPD (chronic obstructive pulmonary disease) Depression H/O: lung cancer 2006 chemotherapy Hemorrhoids Hyperlipidemia Hypertension Hypothyroidism Morbid obesity Neuropathy Peptic ulcer disease Peripheral artery disease Peripheral vascular disease Surgical History Surgical History H/O tubal ligation History of appendectomy History of esophagogastroduodenoscopy (EGD) Family History Family History Father Family history of malignant neoplasm Family history of arthritis Carcinoma of colon Sibling Family history of arthritis Mother Family history of malignant neoplasm breast cancer developed to bone; Other Family history of malignant neoplasm of bone Family history of thyroid disease Social History Social History Social History: The patient is . She has 1 son that is her only child. He is a durable power attorney recruiter for healthcare. The patient desires to be full code. She is wheelchair-bound and has home health coming about once a week. She is an ex-smoker. 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 Smoking packs per day: 1 Smoking cigarettes per day: 20.0 Years smoked: 40 Smoking pack-years: 40.00 Smoking status: Former smoker Tobacco type: cigarettes Smoking end date: 07/19/06 Alcohol intake: never Substance use: never Spiritual care concerns: No Agree to blood products: Yes Meds Home Medications and Allergies Home Medications Medication Instructions Recorded Confirmed T
[2020-08-25] MEDS: TAMSULOSIN HCL 0.4 MG CAPSULE PO (15:36)
[2020-08-25] MEDS: RIVAROXABAN 20 MG TABLET PO (17:24)
[2020-08-25] MEDS: rOPINIRole HCL 0.25 MG TABLET PO (20:04)
[2020-08-25] MEDS: SIMVASTATIN 20 MG TABLET PO (20:04)
[2020-08-26] VITALS (8 sets, daily range): BP systolic 91–141; BP diastolic 68–84; PULSE 68–102; RESP 16–18; TEMP 36.6–36.9; O2SAT 91–100
[2020-08-26] MEDS: LEVOTHYROXINE SODIUM 125 MCG TABLET PO (06:30)
[2020-08-26] MEDS: PREGABALIN (*CRX) 50 MG CAPSULE 200 MG PO ×2 (08:34→17:18)
[2020-08-26] MEDS: CHOLECALCIFEROL 1,000 UNITS TABLET 1000 UNITS PO (08:34)
[2020-08-26] MEDS: DIGOXIN TAB 125 MCG TABLET PO (08:35)
[2020-08-26] MEDS: CYANOCOBALAMIN 1,000 MCG TABLET 1000 MCG PO (08:37)
[2020-08-26] MEDS: PANTOPRAZOLE 40 MG TABLET PO (08:37)
[2020-08-26] MEDS: PENTOXIFYLLINE 400 MG TABCR PO ×2 (08:37→17:19)
[2020-08-26] MEDS: SACUBITRIL/VALSARTAN 49-51 MG TABLET 1 TABLET PO ×2 (08:37→17:19)
[2020-08-26] MEDS: SERTRALINE HCL 25 MG TABLET PO (08:37)
[2020-08-26] MEDS: TAMSULOSIN HCL 0.4 MG CAPSULE PO (08:37)
[2020-08-26 10:16] LABS: Expiratory Pressure 5 cmH2O; Inspiratory Pressure 12 cmH2O
--- NOTE | 2020-08-26 10:28 | P.CDI_ITS ---
CDI Query Clarification Request 1)-Encephalopathy, acute has been documented Please further clarify type of encephalopathy: * Metabolic * Toxic * Hepatic * Hypertensive * Other * Unable to determine 2) Hypercarbia has been documented. Please further clarify cause/probable cause, if known, of hypercarbia. <Janae Steinberg RN - Last Filed: 08/26/20 10:36> Clarified Diagnosis (1) Hypercarbia: Code(s): R06.89 - Other abnormalities of breathing <Janae Steinberg RN - Last Filed: 08/26/20 10:36> Status: Acute <Janae Steinberg RN - Last Filed: 08/26/20 10:36> Assessment and Plan: Secondary to opiate toxicity. <Oseas Givens MD - Last Filed: 08/26/20 12:00> (2) Encephalopathy acute: Code(s): G93.40 - Encephalopathy, unspecified <Janae Steinberg RN - Last Filed: 08/26/20 10:36> Status: Acute <Janae Steinberg RN - Last Filed: 08/26/20 10:36> Assessment and Plan: Metabolic encephalopathy secondary to hypercarbia secondary to opiate toxicity. <Oseas Givens MD - Last Filed: 08/26/20 12:00>
--- NOTE | 2020-08-26 12:18 | PM.DS ---
DS: Admitting Diagnosis Admitting Diagnosis Admitting Diagnosis: (1) Encephalopathy acute: Code(s): G93.40 - Encephalopathy, unspecified Status: Acute Assessment and Plan: the patient is more awake. Her chest x-rays negative. The patient is talking full sentences we took her off the BiPAP and she is now on her routine oxygen. Patient had been given 2 doses of nor can but denies any narcotics. The patient's drug screen was negative. It could be related to hypercapnia. We did put her on the BiPAP for brief period time and then she woke up. (2) Hypercarbia: Code(s): R06.89 - Other abnormalities of breathing Status: Acute Assessment and Plan: Patient is awake and answer questions without difficulty. She has chronic hypercapnia. She is on oxygen 2-4 L at home. Continue with her inhalers. (3) Chronic respiratory failure with hypoxia: Code(s): J96.11 - Chronic respiratory failure with hypoxia Status: Chronic Assessment and Plan: She is on routine oxygen 2-4 L. (4) Anemia: Code(s): D64.9 - Anemia, unspecified Status: Acute Assessment and Plan: as improved since her last admission. (5) Congestive heart failure (CHF): Code(s): I50.9 - Heart failure, unspecified Status: Acute Assessment and Plan: I held her Coreg because her blood pressure is too low now. Please restart tomorrow. Continue med with Entresto and digoxin. I held her Lasix and potassium for today. Due to low blood pressure. However she did get some IV fluids in the emergency room. There for please re-evaluate in for blood pressure does come up tonight will restart her Lasix and potassium. (6) Hypothyroidism: Code(s): E03.9 - Hypothyroidism, unspecified Status: Chronic Assessment and Plan: Continue with secondary. (7) Depression: Code(s): F32.9 - Major depressive disorder, single episode, unspecified Status: Chronic Assessment and Plan: Continue with Zoloft. (8) COPD (chronic obstructive pulmonary disease): Code(s): J44.9 - Chronic obstructive pulmonary disease, unspecified Status: Chronic Assessment and Plan: Continue with her inhalers. (9) Hyperlipidemia: Code(s): E78.5 - Hyperlipidemia, unspecified Status: Chronic Assessment and Plan: Continue with Zocor. (10) Hypertension: Code(s): I10 - Essential (primary) hypertension Status: Chronic Assessment and Plan: Her blood pressure is low. I held her Coreg and continued with Entresto. (11) Atrial fibrillation: Code(s): I48.91 - Unspecified atrial fibrillation Status: Acute Assessment and Plan: Coreg is on hold at this time. Please re-evaluate later if her blood pressure is up we can continue with her Coreg. She is on digoxin. She is on Xarelto. DS: Discharge Diagnosis Discharge Diagnosis (1) Encephalopathy acute: Code(s): G93.40 - Encephalopathy, unspecified Status: Acute (2) Sleep apnea: Code(s): G47.30 - Sleep apnea, unspecified Status: Acute (3) COPD exacerbation: Code(s): J44.1 - Chronic obstructive pulmonary disease with (acute) exacerbation Status: Acute (4) Anticoagulant long-term use: Code(s): Z79.01 - half-way (current) use of anticoagulants Status: Chronic (5) KONRAD (acute kidney injury): Code(s): N17.9 - Acute kidney failure, unspecified Status: Acute (6) Diarrhea: Qualifiers: Diarrhea type: unspecified type Qualified Code(s): R19.7 - Diarrhea, unspecified Code(s): R19.7 - Diarrhea, unspecified Status: Acute (7) Elevated serum creatinine: Code(s): R79.89 - Other specified abnormal findings of blood chemistry Status: Acute (8) Acute and chronic respiratory failure with hypercapnia: Code(s): J96.22 - Acute and chronic respiratory failure with hypercapnia Status:
--- NOTE | 2020-08-26 14:37 | WPDNEUROPN ---
Progress Note: A&P Assessment and Plan (1) Encephalopathy acute: Code(s): G93.40 - Encephalopathy, unspecified Status: Acute (2) Neuropathy: Code(s): G62.9 - Polyneuropathy, unspecified Status: Chronic (3) Atrial fibrillation: Code(s): I48.91 - Unspecified atrial fibrillation Status: Acute Additional Plan state Review of Systems Review of Systems: All systems reviewed & are unremarkable except as noted in HPI and below Exam Const: General: cooperative and well developed Nutritional Appearance: well nourished Orientation/consciousness: patient oriented x3 Limitations: no limitations HENMT: Head: normocephalic Ears: hearing grossly normal bilaterally General nose exam: Normal external nose present and No nasal discharge present Face and sinus: normal facial exam Mouth: Yes Normal oral and palatal mucosa present Eyes: General: appearance normal, both eyes and all related structures Alignment and Position: alignment normal Periorbital: periorbital findings normal Eyelids: eyelids normal Sclera: sclerae normal Cornea: corneas normal Pupils: Equal, round and reactive pupils present EOM: EOMs intact bilaterally Direct Ophthalmoscopy: normal light reflex Neck: Neck: full ROM Lymphatic: no lymphadenopathy noted Resp: Effort & Inspection: normal respiratory effort Auscultation: clear to auscultation bilaterally Cardio: Jugular venous distension: no JVD Rate: regular rate Rhythm: regular rhythm GI: Auscultation: normal bowel sounds Skin: General skin exam: normal color and no rashes or lesions noted Neuro: General: patient oriented x3 Cranial nerves: Yes CN's II-XII intact bilaterally Speech: normal speech Motor exam (neuro): 5/5 motor strength present throughout and Pronator motor function not present Sensory Exam: Sensory deficit (Neuro) Deep tendon reflexes (DTR's): Right triceps reflex intensity grade: 1+, Left triceps reflex intensity grade: 1+, Rt Biceps (C5, C6): 1+, Left biceps reflex intensity grade: 1+, Right brachioradialis reflex intensity grade: 1+, Left brachioradialis reflex intensity grade: 1+, Right patellar reflex intensity grade: 1+, Left patellar reflex intensity grade: 1+, Right ankle reflex intensity grade: 0 and Left ankle reflex intensity grade: 0 Plantar Reflex Responses: downgoing: bilateral Coordination: hsdtbh-vb-pyrd test normal Psych: Appearance: grossly normal Mental Status: mental status grossly normal Affect: normal affect Attitude: cooperative Thought process: Normal thought process present Thought content: Yes Normal thought content present Insight: Fair insight present (Psych) Judgement: Fair judgement present (Psych) Objective Data Vital Signs Vital Signs: Vital Signs - 24 hr 08/25/20 16:00 08/25/20 20:00 08/25/20 21:38 Temperature 36.3 C L 36.7 C Pulse Rate 108 H 108 H 78 Respiratory Rate 24 H 24 H 16 Blood Pressure 113/51 L 96/42 L Pulse Oximetry 90 90 99 08/26/20 02:00 08/26/20 05:19 08/26/20 08:00 Temperature 36.6 C 36.6 C 36.9 C Pulse Rate 81 100 68 Respiratory Rate 16 16 18 Blood Pressure 103/84 91/68 L 121/71 Pulse Oximetry 100 98 99 08/26/20 08:30 08/26/20 08:35 Temperature Pulse Rate 84 84 Respiratory Rate 18 Blood Pressure Pulse Oximetry 99 Intake/Output Intake/Output: Intake & Output 08/23/20 08/24/20 08/25/20 08/26/20 23:59 23:59 23:59 23:59 Intake Total 2281 830 1120 Output Total 700 1500 950 Balance 1581 -670 170 Meds/Results Medications: Active Medications Generic Name Dose Route Start Last Admin Trade Name Fosterq PRN Reason Stop Dose Admin Cyanocobalamin 1,000 mcg 08/25/20 09:00 08/26/20 08:37 Cyanocobalamin 1,000 Mcg Tablet PO 1,000 mcg QAM GUCCI Administration Digoxin 125 mcg 08/25/20 09:00 08/26/20 08:35 Digoxin Tab 125 Mcg Tablet PO 125 mcg QAM GUCCI Administration Hydrocortisone Acetate 25 mg 08/24/20 17:51 Hydrocortisone Acetate 25 M
[2020-08-26] MEDS: RIVAROXABAN 20 MG TABLET PO (17:19)
[2020-08-26] MEDS: SIMVASTATIN 20 MG TABLET PO (20:26)
[2020-08-26] MEDS: rOPINIRole HCL 0.25 MG TABLET PO (20:26)
[2020-08-27] MEDS: ACETAMINOPHEN 325 MG TABLET 650 MG PO (01:57)
[2020-08-27] MEDS: LEVOTHYROXINE SODIUM 125 MCG TABLET PO (05:29)
[2020-08-27 05:56] VITALS: BP 115/54; PULSE 93; RESP 16; TEMP 36.5; O2SAT 99
[2020-08-27 08:10] VITALS: PULSE 80; O2SAT 98
[2020-08-27] MEDS: CHOLECALCIFEROL 1,000 UNITS TABLET 1000 UNITS PO (08:10)
[2020-08-27] MEDS: CYANOCOBALAMIN 1,000 MCG TABLET 1000 MCG PO (08:10)
[2020-08-27] MEDS: DIGOXIN TAB 125 MCG TABLET PO (08:10)
[2020-08-27] MEDS: PENTOXIFYLLINE 400 MG TABCR PO (08:12)
[2020-08-27] MEDS: SERTRALINE HCL 25 MG TABLET PO (08:12)
[2020-08-27] MEDS: PANTOPRAZOLE 40 MG TABLET PO (08:12)
[2020-08-27] MEDS: TAMSULOSIN HCL 0.4 MG CAPSULE PO (08:12)
[2020-08-27] MEDS: SACUBITRIL/VALSARTAN 49-51 MG TABLET 1 TABLET PO (08:12)
[2020-08-27] MEDS: PREGABALIN (*CRX) 50 MG CAPSULE 200 MG PO (08:18)
[2020-08-27 09:37] LABS: Glucose Point of Care 103 (65-105)
[2020-08-27 14:10] VITALS: BP 110/52; PULSE 66; RESP 18; TEMP 37.1; O2SAT 97
--- NOTE | 2020-09-02 12:28 | PM.IMPN ---
Progress Note: A&P Additional Plan 1) Acute hypercapnic respiratory failure: Code(s): J96.02 - Acute respiratory failure with hypercapnia Status: Acute Assessment and Plan: Patient was treated with BiPAP and and inhaler treatment pulmonology recommendation appreciated continue oxygen BiPAP at night (2) Pneumonia: Qualifiers: Laterality: unspecified laterality Lung location: unspecified part of lung Pneumonia type: due to unspecified organism Qualified Code(s): J18.9 - Pneumonia, unspecified organism Code(s): J18.9 - Pneumonia, unspecified organism Status: Acute Assessment and Plan: Probable secondary to Gram-negative pneumonia patient was started on broad-spectrum IV antibiotics pending culture better Vancomycin Zosyn Levaquin (3) Encephalopathy acute: Code(s): G93.40 - Encephalopathy, unspecified Status: Acute Assessment and Plan: Most likely metabolic encephalopathy most likely multifactorial related to medication and CO2 retention resolved (4) Congestive heart failure (CHF): Code(s): I50.9 - Heart failure, unspecified Status: Acute Assessment and Plan: Most likely diastolic stable continue home medication (5) Peripheral artery disease: Code(s): I73.9 - Peripheral vascular disease, unspecified Status: Chronic Assessment and Plan: Continue all med (6) Hypothyroidism: Code(s): E03.9 - Hypothyroidism, unspecified Status: Chronic Assessment and Plan: Levothyroxine (7) Depression: Code(s): F32.9 - Major depressive disorder, single episode, unspecified Status: Chronic Assessment and Plan: Continue home medication (8) COPD (chronic obstructive pulmonary disease): Code(s): J44.9 - Chronic obstructive pulmonary disease, unspecified Status: Chronic Assessment and Plan: With acute exacerbation inhaler treatment (9) Hyperlipidemia: Code(s): E78.5 - Hyperlipidemia, unspecified Status: Chronic Assessment and Plan: Statin (10) Peptic ulcer disease: Code(s): K27.9 - Peptic ulcer, site unspecified, unspecified as acute or chronic, without hemorrhage or perforation Status: Acute Assessment and Plan: Stable (11) Atrial fibrillation: Qualifiers: Atrial fibrillation type: unspecified Qualified Code(s): I48.91 - Unspecified atrial fibrillation Code(s): I48.91 - Unspecified atrial fibrillation Status: Inactive Assessment and Plan: Probably paroxysmal AFib Coreg digoxin Xarelto Of digoxin level on 09/01/2019 Subjective Date/time seen: Patient seen and examined Patient feels weak short of breath patient is off BiPAP Patient was admitted to the hospital with shortness of breath altered mental status was found to have been no pneumonia on the CT scan of the chest also ABG showed acute on top of chronic hypercapnic respiratory failure was treated with BiPAP IV antibiotics pulmonology was consulted broad-spectrum IV antibiotic was started follow-up chest x-ray was ordered by hospital coder Shortness of breath has improved and patient currently on oxygen of BiPAP Mental status is improved patient is alert and orient Patient denies fever headache chest pain I am seeing the patient for Subjective Date/time seen: 09/02/20 12:28 see below Exam Narrative: Exam Narrative: Lying in bed. Const: General: cooperative, healthy appearing, comfortable, no acute distress, well developed, alert, awake and Physically active Nutritional Appearance: average body habitus, well nourished and overweight Orientation/consciousness: oriented to person, oriented to place, oriented to time and patient oriented x3 Limitations: no limitations HENMT: Head: normal to inspection, No palpable skull fracture present, normocephalic and atraumatic Ears: hearing grossly normal bilaterally and external ears normal General nose exam: Normal external nose p
== END 2020-08-27 15:05 | DRG 917 ==
LOC: ANHED 14:02 → ANHIMU 16:57 → ANH2MED 08-26 08:43 → ANHIMU 08-31 12:26
PROVIDERS: Nurse Practitioner; Admitting Provider Family Medicine; Emergency Provider Emergency Medicine; PCP Nurse Practitioner Family; Visit Provider Internal Medicine
DX: T40.2X1A Poisoning by other opioids, accidental (unintentional), initial encounter (principal); G92 Toxic encephalopathy; J96.11 Chronic respiratory failure with hypoxia; J96.12 Chronic respiratory failure with hypercapnia; I48.20 Chronic atrial fibrillation, unspecified; Z68.41 Body mass index [BMI] 40.0-44.9, adult; Z20.822 Contact with and (suspected) exposure to COVID-19; R06.89 Other abnormalities of breathing; R33.9 Retention of urine, unspecified; I11.0 Hypertensive heart disease with heart failure; I50.9 Heart failure, unspecified; J44.9 Chronic obstructive pulmonary disease, unspecified; E78.5 Hyperlipidemia, unspecified; E03.9 Hypothyroidism, unspecified; E66.01 Morbid (severe) obesity due to excess calories; I73.9 Peripheral vascular disease, unspecified; G62.9 Polyneuropathy, unspecified; F32.9 Major depressive disorder, single episode, unspecified; Z87.11 Personal history of peptic ulcer disease; Z85.118 Personal history of other malignant neoplasm of bronchus and lung; Z87.891 Personal history of nicotine dependence; Z99.81 Dependence on supplemental oxygen
CPT/HCPCS: 36415; 36600; 51701; 70450; 71045; 80053; 80307; 81003; 82140; 82375; 82550; 82728; 82805; 82948; 83050; 83605; 83615; 83735; 83880; 84443; 84484; 85025; 85610; 85730; 87040; 93005; 96361; 96365; 96366; 96375; 96376; 97110; 97161; 97165; 97535; 99285; A9270; C9803; J1885; J2310; J2405; J7030; J7050; U0003

== ENCOUNTER 2020-08-30 12:52 | Inpatient (IN) | payer MEDICARE, SELFPAY ==
[2020-08-30] VITALS (13 sets, daily range): BP systolic 94–128; BP diastolic 49–75; PULSE 67–100; RESP 14–22; TEMP 36.3–37.4; O2SAT 94–98
--- NOTE | ~2020-08-30 | XR_ITS ---
EXAMINATION: XR chest 1V portable DATE: 08/31/2020 14:36 INDICATION: Pneumonia. TECHNIQUE: A single frontal view of the chest was obtained. COMPARISON: Chest single view 08/24/2020, chest CT 08/30/2020 FINDINGS: There is chronic marked elevation of right hemidiaphragm. There are airspace opacities at l eft lung base. There are airspace opacities in peripheral right mid and lower lung zones. No pneumoth orax. The heart size is normal. Main pulmonary artery is enlarged, consistent with pulmonary arterial hypertension. There is a stent graft in descending aorta. There are changes of anterior fusion proce dure in cervical spine. There is an old healed right rib fracture. IMPRESSION: 1. Airspace opacities in right mid and lower lung zones and at left lung base, consistent with atelec tasis versus pneumonia. 2. Chronic marked elevation of right hemidiaphragm. Reviewed, dictated and finalized at location A. LY PRACTICE DOCTOR IMPRESSION: 1. Airspace opacities in right mid and lower lung zones and at left lung base, consistent with atelectasis versus pneumonia. 2. Chronic marked elevation of right hemidiaphragm.
--- NOTE | ~2020-08-30 | US_ITS ---
US renal BI 09/04/2020 10:24 Procedure: Realtime transabdominal ultrasound of the kidneys and bladder. Indication: Acute renal failure Comparison: Abnormal CT. Findings: Renal echotexture is normal bilaterally without hydronephrosis, contour deforming mass or r enal calculus. The right kidney measures 8.7 cm and left kidney measures 11.5 cm. There is a 1.6 cm l eft renal cyst. There is a Khan catheter in the bladder. Impression: 1: Left renal cyst measuring 1.6 cm. Otherwise, unremarkable renal ultrasound. Reviewed, dictated and finalized at location A. TIVE GURU Impression: 1: Left renal cyst measuring 1.6 cm. Otherwise, unremarkable renal ultrasound.
--- NOTE | ~2020-08-30 | XR_ITS ---
EXAMINATION: XR chest 1V portable EXAM DATE: 09/06/2020 06:12 INDICATION: Pneumonia. TECHNIQUE: Portable AP frontal chest x-ray was obtained. Comparison is made to prior examination from 09/05/2020, 11/16/2019. FINDINGS: Chronic elevated right hemidiaphragm, possible paralysis unchanged. There is thoracic aorti c endograft. There is aortic arteriosclerosis. Probable small amount of basilar atelectasis or pneumo harriet. There is no pneumothorax suspected. There are no pleural effusions. Cervical fusion hardware. Th ere are bony degenerative changes. IMPRESSION: 1. Probable small amount of basilar atelectasis or pneumonia unchanged. 2. Elevated right hemidiaphragm, possible paralysis. Reviewed, dictated and finalized at location A. DEPOSIT CLERK
--- NOTE | ~2020-08-30 | XR_ITS ---
EXAMINATION: XR chest 1V portable INDICATION: Shortness of breath TECHNIQUE: Portable AP chest at 0753 hours COMPARISON: 08/31/2020 FINDINGS: There are changes of right upper lobectomy with chronic elevation of the right hemidiaphrag m. Airspace opacities of the lung bases and left midlung zone persists without significant change. Th e heart size is normal. No pleural effusion or pneumothorax is identified. There is an endoluminal st ent graft in the thoracic aorta. Surgical changes are noted in the lower cervical spine. IMPRESSION: 1. Stable airspace opacities of the lung bases and left midlung zone, consistent with atelectasis lizzy ginny pneumonia. Reviewed, dictated and finalized at location A. TINNER IMPRESSION: 1. Stable airspace opacities of the lung bases and left midlung zone, consisten t with atelectasis versus pneumonia.
--- NOTE | ~2020-08-30 | CT_ITS ---
EXAMINATION:CT chest wo con DATE: 08/30/2020 16:17 INDICATION: Shortness of breath. TECHNIQUE: Computed tomography (CT) of the chest was performed without intravenous contrast. Automate d exposure control and iterative reconstruction technique were employed. The dose-length product (DLP ) was 963.46 mGy-cm. COMPARISON: Chest CT 12/15/19 FINDINGS: There are changes of right upper lobectomy. There is mild emphysema. There is chronic marke d elevation of right hemidiaphragm. There is mild atelectasis in the lungs. There are patchy groundgl ass and airspace opacities in right middle lobe, consistent with pneumonia. No pleural effusion. Ther e is left atrial enlargement of the heart. There are coronary artery calcifications. No pericardial e ffusion. There are gallstones in the gallbladder, which is normal in size. There is a 4.7 cm fusiform aneurysm of distal thoracic aorta with stent graft in expected position. There are changes of anteri or fusion procedure in cervical spine. There is mild thoracic spondylosis. IMPRESSION: 1. Right middle lobe pneumonia. 2. Right upper lobectomy. 3. Chronic marked elevation of right hemidiaphragm. 4. Mild emphysema. 5. Stable 4.7 cm fusiform aneurysm of descending thoracic aorta with stent graft. Reviewed, dictated and finalized at location A. NSED JOURNEYMAN ELECTRICIAN IMPRESSION: 1. Right middle lobe pneumonia. 2. Right upper lobectomy. 3. Chronic marked elevation of right hemidiaphragm. 4. Mild emphysema. 5. Stable 4.7 cm fusiform aneurysm of descending thoracic aorta with stent graf ojeda
--- NOTE | ~2020-08-30 | XR_ITS ---
EXAMINATION: XR chest 1V portable DATE: 09/05/2020 08:57 INDICATION: Pneumonia. TECHNIQUE: A single frontal view of the chest was obtained. COMPARISON: Chest single view 09/01/2020, chest CT 08/30/2020 FINDINGS: There is chronic marked elevation of right hemidiaphragm. There are mild airspace opacities in the lower lung zones. No pleural effusion or pneumothorax. The heart size is normal. There is enl argement of the main pulmonary artery, consistent with pulmonary arterial hypertension. There is a st ent graft in descending thoracic aorta. There are changes of anterior fusion procedure in cervical sp ine. There is an old healed right rib fracture. IMPRESSION: 1. Mild airspace opacities in the lower lung zones with improvement on the right, consistent with ate lectasis versus pneumonia. Reviewed, dictated and finalized at location B. T STUFFER IMPRESSION: 1. Mild airspace opacities in the lower lung zones with improvement on the righ t, consistent with atelectasis versus pneumonia.
--- NOTE | ~2020-08-30 | CT_ITS ---
EXAMINATION: CT brain wo con DATE: 08/30/2020 16:17 INDICATION: Altered mental status, confusion and weakness TECHNIQUE: Computed tomography (CT) of the head was performed without intravenous contrast. Sagittal and coronal reconstructions were performed. The mA was adjusted according to patient size. Iterative reconstruction technique was employed. The dose-length product was 605.33 mGy-cm. COMPARISON: head CT dated 08/24/2020 FINDINGS: Evaluation is again mildly limited by motion. No acute intracranial hemorrhage, acute infarction or a bnormal extra axial fluid collection. There is mild scattered white matter hypoattenuation consistent with chronic small vessel ischemic disease. Ventricles are normal and symmetric. No mass/mass effec t. Mild mucosal thickening throughout the paranasal sinuses. The orbits and mastoid air cells are nor mal. Intracranial calcified cerebral atherosclerosis is noted. IMPRESSION: 1. No acute intracranial process. Evaluation mildly limited by motion. 2. Mild scattered white matter hypoattenuation consistent with chronic small vessel ischemic disease. Reviewed, dictated and finalized at location A. RMATION SECURITY ANALYST IMPRESSION: 1. No acute intracranial process. Evaluation mildly limited by motion. 2. Mild scattered white matter hypoattenuation consistent with chronic small ve ssel ischemic disease.
--- NOTE | ~2020-08-30 | XR_ITS ---
EXAMINATION: XR chest 1V portable INDICATION: Hypoxia TECHNIQUE: Portable AP chest at 1154 hours COMPARISON: 09/06/2020 FINDINGS: There is elevation of the right hemidiaphragm. There are minimal airspace opacities of the lung bases and left midlung zone. The heart size is normal for technique. No pleural effusion or pneu mothorax is identified. An endoluminal stent is noted in the descending thoracic aorta. Changes of fu melodie are noted in the lower cervical spine. IMPRESSION: 1. Airspace opacities of the lung bases and left midlung zone, consistent with atelectasis versus pne umonia. Reviewed, dictated and finalized at location A. MOBILE LIGHTS ASSEMBLER IMPRESSION: 1. Airspace opacities of the lung bases and left midlung zone, consistent with atelectasis versus pneumonia.
[2020-08-30 13:05] LABS: Glucose Point of Care 94 (65-105)
--- NOTE | 2020-08-30 15:41 | PC.NURSE ---
Note pt yelling out, when asked what hurts states my back and hips . Note pt's spo2 drops to mid to high 80's when pt falls asleep.
[2020-08-30 15:57] LABS: INR 1.7; Prothrombin Time 20.2 Seconds (11.1-14.7)
[2020-08-30 15:58] LABS: Partial Thromboplastin Time 42.6 SECONDS (22.3-36.8)
[2020-08-30 16:00] LABS: Alanine Aminotransferase 12 U/L (4-35); Albumin Level 3.4 g/dL (3.5-5.1); Alkaline Phosphatase 94 U/L (38-126); Anion Gap 3 mmol/L (8-16); Aspartate Amino Transferase 19 U/L (14-36); Bilirubin,Total 0.4 mg/dL (0.2-1.3); Blood Urea Nitrogen 29 mg/dL (7-17); Calcium 7.8 mg/dL (8.4-10.2); Carbon Dioxide 37 mmol/L (22-30); Chloride 102 mmol/L (98-107); Estimated CRCL calculation 49 ml/min; Estimated Glomerular Filt Rate 44; Glucose 88 mg/dL (65-105); Potassium 4.2 mmol/L (3.4-5.0); Sodium 142 mmol/L (137-145)
[2020-08-30 16:11] LABS: Troponin I < 0.012 ng/mL (0.000-0.034)
--- NOTE | 2020-08-30 16:16 | ED.AMS ---
HPI - Altered Mental Status General Chief Complaint: Altered Mental Status Stated Complaint: AMS Time Seen by Provider: 08/30/20 14:06 Source: patient and EMS Mode of arrival: EMS Limitations: no limitations History of Present Illness HPI narrative: Patient is a 72-year-old female brought in by EMS after the assisted living facility where she resides had called due to patient being confused and lethargic. When EMS arrived patient had the responsiveness but when they try to lift up states that she was just pretending to be asleep. Patient states that she is having shortness of breath. Patient has a history of CHF. Patient is alert and oriented x3 on exam. Related Data Home Medications Medication Instructions Recorded Confirmed Entresto 1 tablet PO BID 10/22/19 08/24/20 carvedilol [Coreg] 3.125 mg PO BID 10/22/19 08/24/20 digoxin 0.125 mcg PO QAM 10/22/19 08/24/20 furosemide 80 mg PO DAILY 10/22/19 08/24/20 pantoprazole [Protonix] 40 mg PO QAM 10/22/19 08/24/20 pentoxifylline 400 mg PO BID 10/22/19 08/24/20 pregabalin [Lyrica] 200 mg PO BID 10/22/19 08/24/20 sertraline [Zoloft] 25 mg PO QAM 10/22/19 08/24/20 simvastatin [Zocor] 20 mg PO HS 10/22/19 08/24/20 tramadol [Ultram] 50 mg PO TID 10/22/19 08/24/20 Anoro Ellipta 1 inh INHALATION DAILY 08/10/20 08/24/20 B12 Active 1,000 mcg PO DAILY 08/10/20 08/24/20 Digestive Advantage Probiotic 2 cap PO BID 08/10/20 08/24/20 cholecalciferol (vitamin D3) 25 mcg PO DAILY 08/10/20 08/24/20 [Vitamin D3] levothyroxine [Synthroid] 125 mcg PO DAILY 08/10/20 08/24/20 oxycodone-acetaminophen 1 tablet PO Q12H PRN 08/10/20 08/24/20 ropinirole [Requip] 0.25 mg PO HS 08/10/20 08/24/20 Xarelto 20 mg PO QPM 08/24/20 08/24/20 potassium chloride 20 meq PO DAILY 08/24/20 08/24/20 Allergies Allergy/AdvReac Type Severity Reaction Status Date / Time No Known Allergies Allergy Verified 08/30/20 13:27 Review of Systems Review of Systems: All systems reviewed & are unremarkable except as noted in HPI and below Constitutional: Constitutional: Denies body ache(s), Denies chills, Denies excessive sweating, Denies fatigue, Denies fever(s), Denies headache(s), Denies lethargy, Denies malaise and Denies weight loss Eyes: Eyes: Denies blurry vision, Denies change in vision and Denies loss of vision ENT: Denies dizziness, Denies ear discharge, Denies headache(s), Denies lip swelling, Denies epistaxis, Denies nasal congestion, Denies neck pain, Denies throat swelling and Denies tongue swelling Cardiovascular: Cardiovascular: Denies chest pain, Denies chest pain at rest, Denies chest pain with activity, Denies diaphoresis, Denies rapid heart rate, Denies edema, Denies irregular heart rhythm, Denies lightheadedness and Denies palpitations Respiratory: Respiratory: Denies chest congestion, Denies cough and Denies hemoptysis Gastrointestinal: Gastrointestinal: Denies abdominal pain, Denies melena, Denies hematochezia, Denies diarrhea, Denies nausea, Denies vomiting and Denies hematemesis Musculoskeletal: Musculoskeletal: Denies abnormal gait, Denies deformity, Denies joint swelling, Denies limited range of motion, Denies neck pain and Denies numbness Neurologic: Denies Abnormal speech present, Denies abnormal gait, Denies confusion, Denies dizziness, Denies headache(s), Denies focal weakness, Denies loss of vision, Denies numbness, Denies Other visual disturbances and Denies Sensory deficit (Neuro) Psychiatric: Psychiatric: Denies confusion, Denies depression, Denies auditory hallucinations, Denies homicidal ideation and Denies suicidal ideation Endocrine: Endocrine: Denies cold intolerance, Denies excessive sweating, Denies fatigue, Denies heat intolerance and Denies palpitations Hematologic/Lymphatic: Hematologic/Lymphatic: Denies easy bleeding and Denies easy bruising Allergic/Immunologic: Allergic/Immunologic: Denies lip swelling, Denies throat swelling and Denies tongue swelling PMF Past Medical History M
[2020-08-30 16:30] LABS: Alveolar/Arterial O2 Gradient 126.6 mmHg; Base Excess ABG 4.7 mEq/l (+/-2.0); Carboxyhemoglobin 0.3 % THb (0-2.0); Fractional Inspired Oxygen 40 %; HCO3 ABG 32.2 mEq/l (22.0-26.0); Methemoglobin ABG 0.3 %THb (0-1.5); Oxygen Content ABG 12.6 %vol (16.0-22.0); Oxygen Saturation ABG 94.7 % (95.0-100.0); Oxyhemoglobin 94.4 % THb (90.0-100.0); PO2 ABG 82.4 mmHg (80.0-100.0); PO2 FiO2 Ratio Arterial Blood 2.06 %; Total Hemoglobin 9.4 g/dL (12.0-18.0); pH ABG 7.304 (7.350-7.450)
[2020-08-30 16:31] LABS: Device NASAL CANNULA; PCO2 ABG 66.3 mmHg (35.0-45.0); Site Drawn RIGHT BRACHIAL
--- NOTE | 2020-08-30 16:45 | PC.NURSE ---
Note pt moaning loudly, when into room c/o arm pain, hip pain, it all hurts . Seems to be alert to baseline. Pt informed that needs to go back on bipap like last time, pt begins to cry no, no no . Preparing to draw blood cultures.
[2020-08-30 16:48] LABS: NT Pro B Type Natriuretic Pept 2240 PG/ML (5-100)
[2020-08-30 16:50] LABS: Basophils Percent Auto 0.3 % (0.2-1.2); Eosinophils Absolute Auto 0.1 K/mm3 (0-0.3); Eosinophils Percent Auto 0.8 % (0-4.4); Hematocrit 30.1 % (37.0-47.0); Hemoglobin 8.8 g/dL (12.0-15.0); Immature Granulocyte Absolute 0.04 K/mm3 (0.00-0.031); Immature Granulocyte Percent A 0.5 % (0-0.5); Lymphocytes Absolute Auto 0.92 K/mm3 (0.9-3.2); Lymphocytes Percent Auto 12.6 % (18.3-44.2); Mean Corpuscular HGB Conc 29.2 g/dl (32-36); Mean Corpuscular Volume 99.3 fl (80-100); Mean Platelet Volume 11.6 fl (7.4-10.4); Monocytes Absolute Auto 0.6 K/mm3 (0.1-0.6); Monocytes Percent Auto 8.2 % (2.6-8.5); Neutrophils Absolute Auto 5.7 K/mm3 (1.3-6.7); Neutrophils Percent Auto 77.6 % (45.5-73.1); Platelet Count Result 175 k/mm3 (150-375); Red Blood Count 3.03 M/mm3 (4.2-5.4); Red Cell Distribution Width 14.6 % (11.5-14.5); White Blood Count 7.3 K/mm3 (4.5-10.0)
[2020-08-30 17:02] LABS: Hypochromasia 2+ (NORMAL); Ovalocytes 1+ (NORMAL); Platelet Estimate Adequate (Adequate)
[2020-08-30 17:26] LABS: Lactic Acid Reflex 0.6 mmol/L (0.7-2.1)
--- NOTE | 2020-08-30 17:35 | PC.NURSE ---
Note critical co2 levels. RT at bedside to place pt on continuous bipap.
--- NOTE | 2020-08-30 19:01 | PC.NURSE ---
Addendum entered by Seb East RN 08/30/20 19:19: rolling around in bed. IV dc'd cath intact. Report to IMU and LASHONDA Cantu, to transport pt to floor. Original Note: Note pt's IV dc'd accidently when
--- NOTE | 2020-08-30 20:22 | PC.NURSE ---
RN Nurse at bedside to collect covid swab.
[2020-08-30] MEDS: IPRATROPIUM BR 0.02% INH SOLN 0.5 MG/2.5 ML VIAL INHALATION (21:02)
[2020-08-30] MEDS: ALBUTEROL SULFATE NEB 2.5 MG/0.5 ML INH 5 MG INHALATION (21:03)
--- NOTE | 2020-08-30 21:46 | ADMGEN ---
This patient, Valorie Harris, was admitted to IMU Room 211-01. Patient/family oriented to hospital policies and general routines including ID bracelet, bed and alarms, visiting hours, pain management, procedures, bathroom and other care routines, personal items, smoking policy, room service/diet, and visiting hours. Information on how to activate the Rapid Response Team has been discussed. Patient/Family are encouraged to report perceived risks to care and to ask questions if they do not understand what they are told or what they should do. Pt arrived on floor at approximately 1999, report received from Seb.
[2020-08-30 23:01] LABS: Alveolar/Arterial O2 Gradient 78.5 mmHg; Base Excess ABG 3.7 mEq/l (+/-2.0); Carboxyhemoglobin 0.3 % THb (0-2.0); Fractional Inspired Oxygen 30 %; HCO3 ABG 29.4 mEq/l (22.0-26.0); Methemoglobin ABG 0.3 %THb (0-1.5); Oxygen Content ABG 12.1 %vol (16.0-22.0); Oxygen Saturation ABG 94.7 % (95.0-100.0); Oxyhemoglobin 94.1 % THb (90.0-100.0); PO2 ABG 75.5 mmHg (80.0-100.0); PO2 FiO2 Ratio Arterial Blood 2.52 %; Reduced Hemoglobin 5.3 %THb (0-5.0); Total Hemoglobin 9.1 g/dL (12.0-18.0); pH ABG 7.379 (7.350-7.450)
[2020-08-30 23:03] LABS: Device BIPAP; Modified Allen's Test Pass; Site Drawn RIGHT RADIAL
[2020-08-30 23:04] LABS: Expiratory Pressure 6 cmH2O; Inspiratory Pressure 12 cmH2O
--- NOTE | 2020-08-30 23:25 | PM.IMHP ---
H&P: HPI History of Present Illness Date/Time: 08/30/20 23:25 Chief Complaint: Weakness, confusion Narrative: Valorie Harris is a 75 year old female with a past medical history of chronic hypercapnic respiratory failure, chronic hypoxic respiratory failure, chronic pain syndrome, and CHF who presented to the ER from [facility] when EMS arrived at the facility the patient woke up been told EMS ?I was just faking, I wanted to get out?. On route to the hospital the patient's oxygen saturations dropped to 88% but improved with deep breathing. The patient is usually on 2 L of home O2 and her O2 was increased to 4 L and route to the hospital. The patient is aware that she does got out of the hospital on Saturday. But when I was talking to the patient in asked her why she came into the hospital she stated that her father brought her to the hospital but he must of stops somewhere along the way for a long time before he brought her in. She continued to talk about her father bring her into the hospital for another minute her so. She then corrected herself is said that her father was . But she still could not tell the events that led up to her coming to the hospital. She denied having any shortness of breath or chest pain. She has not been having cough per her report. However in the ER imaging studies did demonstrate and presence of prior right upper lobe lobectomy. Review of Systems Review of Systems: ROS unobtainable: Yes unobtainable due to mental status (Limited due to the patient's encephalopathy.) [facility] Past Medical History Medical History (Updated 08/31/20 @ 09:30 by Kiley Solorzano DO) Arterial stent thrombosis Left leg Atrial fibrillation Taken off of anticoagulation due to her peptic ulcer disease. 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[facility]; Dr Shi, clerk specialist; on home O2 COPD (chronic obstructive pulmonary disease) Deficits with air trapping and increased airway resistance with lack of response to bronchodilator therapy Depression Descending aortic aneurysm Stable fusiform 4.7 cm within stent graft H/O: lung cancer 2006 chemotherapy Hemorrhoids Hyperlipidemia Hypertension Hypothyroidism Morbid obesity Neuropathy Peptic ulcer disease Peripheral artery disease Surgical History Surgical History H/O tubal ligation History of appendectomy History of esophagogastroduodenoscopy (EGD) Family History Family History Father Family history of malignant neoplasm Family history of arthritis Carcinoma of colon Sibling Family history of arthritis Mother Family history of malignant neoplasm breast cancer developed to bone; Other Family history of malignant neoplasm of bone Family history of thyroid disease Social History Social History Social History: The patient is . She has 1 son that is her only child. He is a durable power collections attorney for healthcare. The patient desires to be full code. She is wheelchair-bound and has home health coming about once a week. She is an ex-smoker. 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 Smoking packs per day: 2 Smoking cigarettes per day: 40.0 Years smoked: 40 Smoking pack-years: 80.00 Smoking status: Former smoker Tobacco type: cigarettes Smoking end date: 07/19/06 Alcohol intake: never Substance use: never Substance use type: does not use Gender identity (if verbalized by the patient): Female Spiritual care concerns: No Agree to blood products: Yes Meds Home Medications and Allergies Home Medications Medication Instructions Recorded Confirmed Type Entresto 1 tablet PO BID 10/22/19 08/30/20 History carvedilol [Coreg] 3.125 mg PO BID 10/22/19 08/30/20 History digoxin 0.125 mcg PO QAM
[2020-08-30 23:39] LABS: Glucose Point of Care 131 (65-105)
[2020-08-31] VITALS (30 sets, daily range): BP systolic 98–147; BP diastolic 46–69; PULSE 58–108; RESP 18–26; TEMP 36.6–38.1; O2SAT 93–100; BMI 42.9
[2020-08-31] MEDS: PREGABALIN (*CRX) 50 MG CAPSULE 200 MG PO ×3 (02:15→16:42)
[2020-08-31] MEDS: ACETAMINOPHEN 500 MG TABLET 1000 MG PO ×2 (02:16→23:41)
[2020-08-31] MEDS: SIMVASTATIN 20 MG TABLET PO ×2 (02:16→20:55)
[2020-08-31] MEDS: carvediloL 3.125 MG TABLET PO ×3 (02:17→16:40)
[2020-08-31] MEDS: ALBUTEROL SULFATE NEB 2.5 MG/0.5 ML INH 5 MG INHALATION ×4 (02:40→20:42)
[2020-08-31] MEDS: IPRATROPIUM BR 0.02% INH SOLN 0.5 MG/2.5 ML VIAL INHALATION ×4 (02:41→20:42)
[2020-08-31] MEDS: LEVOTHYROXINE SODIUM 125 MCG TABLET PO (05:23)
[2020-08-31 05:39] LABS: Hematocrit 27.2 % (37.0-47.0); Hemoglobin 8.2 g/dL (12.0-15.0); Mean Corpuscular HGB Conc 30.1 g/dl (32-36); Mean Corpuscular Hemoglobin 29.1 pg (26-34); Mean Corpuscular Volume 96.5 fl (80-100); Mean Platelet Volume 11.4 fl (7.4-10.4); Platelet Count Result 152 k/mm3 (150-375); Red Blood Count 2.82 M/mm3 (4.2-5.4); Red Cell Distribution Width 14.5 % (11.5-14.5); White Blood Count 4.5 K/mm3 (4.5-10.0)
[2020-08-31 05:42] LABS: Anion Gap 3 mmol/L (8-16); Blood Urea Nitrogen 27 mg/dL (7-17); Calcium 8.1 mg/dL (8.4-10.2); Carbon Dioxide 35 mmol/L (22-30); Chloride 104 mmol/L (98-107); Estimated CRCL calculation 58 ml/min; Estimated Glomerular Filt Rate 54; Glucose 121 mg/dL (65-105); Potassium 3.9 mmol/L (3.4-5.0); Sodium 142 mmol/L (137-145)
[2020-08-31 08:24] LABS: Glucose Point of Care 100 (65-105)
[2020-08-31] MEDS: POTASSIUM CHLORIDE 20 MEQ TABLET.ER PO (09:32)
[2020-08-31] MEDS: CHOLECALCIFEROL 1,000 UNITS TABLET 1000 UNITS PO (09:32)
[2020-08-31] MEDS: SERTRALINE HCL 25 MG TABLET PO (09:33)
[2020-08-31] MEDS: FUROSEMIDE 40 MG TABLET 80 MG PO (09:33)
[2020-08-31] MEDS: DIGOXIN TAB 125 MCG TABLET PO (09:33)
[2020-08-31] MEDS: PENTOXIFYLLINE 400 MG TABCR PO ×2 (09:33→16:39)
[2020-08-31] MEDS: PANTOPRAZOLE 40 MG TABLET PO (09:34)
[2020-08-31] MEDS: SACUBITRIL/VALSARTAN 49-51 MG TABLET 1 TABLET PO ×2 (09:35→16:41)
[2020-08-31] MEDS: CYANOCOBALAMIN 1,000 MCG TABLET 1000 MCG PO (09:43)
[2020-08-31] MEDS: ACIDOPHILUS/BULGARICUS CHEWABLE TABLET 1 TABLET PO ×2 (09:43→16:42)
[2020-08-31 11:47] LABS: Glucose Point of Care 110 (65-105)
--- NOTE | 2020-08-31 12:13 | PM.IMPN ---
Progress Note: A&P Assessment and Plan (1) Acute and chronic respiratory failure with hypercapnia: Code(s): J96.22 - Acute and chronic respiratory failure with hypercapnia Status: Acute Assessment and Plan: Will continue with BiPAP and get pulmonary consult (2) Pneumonia: Qualifiers: Laterality: unspecified laterality Lung location: unspecified part of lung Pneumonia type: due to unspecified organism Qualified Code(s): J18.9 - Pneumonia, unspecified organism Code(s): J18.9 - Pneumonia, unspecified organism Status: Acute Assessment and Plan: Follow-up chest x-ray continue IV antibiotics (3) Encephalopathy acute: Code(s): G93.40 - Encephalopathy, unspecified Status: Acute Assessment and Plan: Will treat infection and monitor closely (4) Chronic respiratory failure with hypoxia: Code(s): J96.11 - Chronic respiratory failure with hypoxia Status: Chronic Assessment and Plan: Continue with BiPAP and monitor oxygen. Pulmonary consult (5) Urinary retention: Code(s): R33.9 - Retention of urine, unspecified Status: Acute Assessment and Plan: Continue antibiotics. Additional Plan The patient has been admitted to the hospital for pneumonia and acute on chronic hypercapnic respiratory failure in the setting of chronic hypoxic respiratory failure. Patient was found to have pneumonia on imaging studies and has been placed on Rocephin and azithromycin by the ER staff. Pulmonology consult may be beneficial admitted multiple times for recurrent hypercapnic respiratory failure in the setting of severe obstructive and moderate restrictive lung disease. The patient was given a dose of Decadron in the ER. On scheduled nebulizer treatments with albuterol and Atrovent. She received a dose of Decadron in the ER. COVID-19 testing is pending. Her symptoms improved with BiPAP therapy. Repeat ABG demonstrated improvement in her pH and pCO2. Instructed the nursing staff the patient could have a break from BiPAP therapy. Have ordered an apnea link. Patient's encephalopathy is likely multifactorial due to hypercapnia and tramadol use. Will hold the patient's tramadol place her on 1 g of Tylenol q.6 hours as needed for pain. The patient have Khan catheter placed earlier in August due to urinary retention. She failed a voiding trial and was discharged back to [facility] with Khan catheter in place. Her urinary retention was thought to be due to narcotic use and or atonic bladder. She is post follow-up was urology as outpatient. Subjective Date/time seen: 08/31/20 12:13 Interval history: Patient was seen during the morning rounds. Patient has mild shortness of breath. No chest pain. Patient is using BiPAP. Review of Systems Review of Systems: ROS unobtainable: Yes unobtainable due to mental status (Limited due to the patient's encephalopathy.) Exam Narrative: Exam Narrative: PHYSICAL EXAM: WEIGHT 119.5 kg BMI 42.5 General: Morbidly obese, no acute distress HEENT: BiPAP in place, mucous membranes are dry, pupils are equal and reactive, head is normocephalic atraumatic Respiratory: Decreased breath sounds bilaterally, no increased work of breathing, no tachypnea Cardiovascular: Regular rate, irregular rhythm Gastrointestinal: Soft, nontender, nondistended Skin: Generalized pallor, non jaundice Musculoskeletal: Edema, no cyanosis, generalized weakness Neurological: Alert and oriented x3, confused as to events that brought her to the hospital, has periods of talking about events that did not occur such as her father bring her to the hospital, speech is clear, difficult to assess for facial asymmetry given presence of BiPAP Psychiatric: Pleasant and cooperative, reports events that did not occur? Hallucinations : Khan catheter is in place and is draining yellow urine Hematologic/lymphatic: No petechiae, no bruising Objecti
--- NOTE | 2020-08-31 13:09 | PM.CNPUL ---
Assessment and Plan Assessment and plan (1) Acute and chronic respiratory failure with hypercapnia: Code(s): J96.22 - Acute and chronic respiratory failure with hypercapnia Status: Acute Assessment and Plan: Patient with acute on chronic respiratory failure from COPD. Patient's blood gas in the emergency room was 7.30-60 6-82 on 5 L nasal cannula. This represents an acute on chronic respiratory acidosis. Patient has improved on BiPAP 12/6 and is now comfortable and requesting to take the BiPAP off. BiPAP has been removed and she is now on 2 L nasal cannula saturations 100%. I will continue nebulized albuterol and ipratropium bromide at this point. Patient does not have active wheezing and I will hold off on inhaled or systemic steroids. I will repeat a chest x-ray in the morning. Patient does qualify for noninvasive ventilation and I will continue her BiPAP 12/6 tonight as she would benefit from noninvasive ventilation for her hypercarbia and her elevated bicarb level. (2) Pneumonia: Qualifiers: Laterality: unspecified laterality Lung location: unspecified part of lung Pneumonia type: due to unspecified organism Qualified Code(s): J18.9 - Pneumonia, unspecified organism Code(s): J18.9 - Pneumonia, unspecified organism Status: Acute Assessment and Plan: Patient with new infiltrate to the right middle lobe on her CT scan and has currently been in the hospital and came from an assisted living facility. I will discontinue ceftriaxone and azithromycin and place her on Vanco, Zosyn and Levaquin pending cultures. I will obtain a chest x-ray today and in the morning. Will follow with you. History of Present Illness History of Present Illness Consult date: 08/31/20 Requesting physician: Julissa Sosa M.A., MD Reason for consult: pneumonia Chief complaint: ACUTE RESPIRATORY FAILURE, PNEUMONIA Narrative: Valorie Harris is a 75 year old female with a past medical history of lunbg cancer 2006 s/p RUL resetion, COPD on 2 l NC oxygen and chronic hypercapnic respiratory failure, chronic pain syndrome, and CHF who presented to the ER from [facility] with altered mental status. Patient was found to right middle lobe pneumonia on CT scan which was new since CT on 12/07/2019. Patient also is noted to have resection in the right upper lobe and mild upper lobe centrilobular emphysema. Patient had ABG of 7.30/66/82 on 5 L NC. Patient placed on BiPAP 12/6 30% with repeat ABG 7.37/51/76. Admitted to floor and I was consulted. Patient now on BiPAP in no respiratory distress, asking to take mask off. She does not remember why she was in hospital. No wheezes on exam. Will DC BiPAP at this time. Patient had PFTs on 12/25/2019 which demonstrated an FVC of 1.64 L, 55% predicted,. The pre bronchodilator FEV1 was 0.84 L, 39% predicted. The FEV1: FVC ratio was 51%. The post bronchodilator FVC is 1.67 L, representing a 2% increase. The post bronchodilator FEV1 is 0.90 L, representing a 7% increase. Patient had a total lung capacity of 3 point 3 5, 64% predicted. Patient's FRC was 2.50, 110% predicted. Residual volume was 1.65 L, 78% predicted. The patient's diffusing capacity was 6.7, 26% predicted. Patient's diffusing capacity corrected for alveolar volume was 2.87, 82% predicted. Review of Systems Review of Systems: All systems reviewed & are unremarkable except as noted in HPI and below Eyes: Eyes: Reports no additional eye complaints ENT: Reports system reviewed and no additional complaints, except as documented and Reports sinus pressure Cardiovascular: Cardiovascular: Reports no additional cardiovascular complaints Respiratory: Respiratory: Reports no additional respiratory complaints Gastrointestinal: Gastrointestinal: Reports no additional gastrointestinal complaints Musculoskeletal: Musculoskeletal: Reports no additional musculoskeletal complaints Integumentary/
[2020-08-31] MEDS: RIVAROXABAN 20 MG TABLET PO (16:41)
[2020-08-31 16:46] LABS: Glucose Point of Care 121 (65-105)
[2020-08-31 18:18] LABS: SARS-CoV-2 RNA PCR Negative
[2020-09-01] VITALS (25 sets, daily range): BP systolic 112–162; BP diastolic 59–90; PULSE 72–102; RESP 14–24; TEMP 36.1–38.1; O2SAT 93–100
[2020-09-01 00:12] LABS: Glucose Point of Care 127 (65-105)
[2020-09-01] MEDS: LEVOTHYROXINE SODIUM 125 MCG TABLET PO (05:20)
[2020-09-01 05:35] LABS: Hematocrit 26.1 % (37.0-47.0); Mean Corpuscular HGB Conc 30.7 g/dl (32-36); Mean Corpuscular Hemoglobin 29.1 pg (26-34); Mean Corpuscular Volume 94.9 fl (80-100); Mean Platelet Volume 11.3 fl (7.4-10.4); Platelet Count Result 165 k/mm3 (150-375); Red Blood Count 2.75 M/mm3 (4.2-5.4); Red Cell Distribution Width 14.6 % (11.5-14.5); White Blood Count 3.8 K/mm3 (4.5-10.0)
[2020-09-01 05:58] LABS: Alanine Aminotransferase 12 U/L (4-35); Albumin Level 3.2 g/dL (3.5-5.1); Alkaline Phosphatase 83 U/L (38-126); Anion Gap 6 mmol/L (8-16); Aspartate Amino Transferase 21 U/L (14-36); Bilirubin,Total 0.5 mg/dL (0.2-1.3); Blood Urea Nitrogen 21 mg/dL (7-17); Carbon Dioxide 33 mmol/L (22-30); Chloride 102 mmol/L (98-107); Estimated CRCL calculation 53 ml/min; Estimated Glomerular Filt Rate 49; Glucose 101 mg/dL (65-105); Potassium 3.4 mmol/L (3.4-5.0); Sodium 141 mmol/L (137-145)
[2020-09-01] MEDS: CHOLECALCIFEROL 1,000 UNITS TABLET 1000 UNITS PO (08:04)
[2020-09-01] MEDS: DIGOXIN TAB 125 MCG TABLET PO (08:04)
[2020-09-01] MEDS: SERTRALINE HCL 25 MG TABLET PO (08:04)
[2020-09-01] MEDS: POTASSIUM CHLORIDE 20 MEQ TABLET.ER PO (08:05)
[2020-09-01] MEDS: FUROSEMIDE 40 MG TABLET 80 MG PO (08:05)
[2020-09-01] MEDS: CYANOCOBALAMIN 1,000 MCG TABLET 1000 MCG PO (08:05)
[2020-09-01] MEDS: PENTOXIFYLLINE 400 MG TABCR PO ×2 (08:05→17:54)
[2020-09-01] MEDS: ACIDOPHILUS/BULGARICUS CHEWABLE TABLET 1 TABLET PO ×2 (08:05→17:54)
[2020-09-01] MEDS: carvediloL 3.125 MG TABLET PO ×2 (08:06→17:53)
[2020-09-01] MEDS: PANTOPRAZOLE 40 MG TABLET PO (08:06)
[2020-09-01] MEDS: SACUBITRIL/VALSARTAN 49-51 MG TABLET 1 TABLET PO ×2 (08:06→17:54)
[2020-09-01] MEDS: PREGABALIN (*CRX) 50 MG CAPSULE 200 MG PO ×2 (08:13→17:53)
[2020-09-01] MEDS: ALBUTEROL SULFATE NEB 2.5 MG/0.5 ML INH 5 MG INHALATION ×3 (08:22→20:28)
[2020-09-01] MEDS: IPRATROPIUM BR 0.02% INH SOLN 0.5 MG/2.5 ML VIAL INHALATION ×3 (08:22→20:29)
--- NOTE | 2020-09-01 12:22 | PM.PNPUL ---
Progress Note: A&P Assessment and Plan (1) Acute and chronic respiratory failure with hypercapnia: Code(s): J96.22 - Acute and chronic respiratory failure with hypercapnia Status: Acute Assessment and Plan: 08/31 Patient with acute on chronic respiratory failure from COPD. Patient's blood gas in the emergency room was 7.30-60 6-82 on 5 L nasal cannula. This represents an acute on chronic respiratory acidosis. Patient has improved on BiPAP 12/6 and is now comfortable and requesting to take the BiPAP off. BiPAP has been removed and she is now on 2 L nasal cannula saturations 100%. I will continue nebulized albuterol and ipratropium bromide at this point. Patient does not have active wheezing and I will hold off on inhaled or systemic steroids. I will repeat a chest x-ray in the morning. Patient does qualify for noninvasive ventilation and I will continue her BiPAP 12/6 tonight as she would benefit from noninvasive ventilation for her hypercarbia and her elevated bicarb level. 09/01 Patient with chronic respiratory failure with admit ABG on 5 L NC 7.30/66/82 with elevated CO2 levels. Patient would benefit from noninvasive ventilation bue to chronic CO2 retention from COPD. Continue albuterol and ipratroprium nebulizes, no wheezes today. She stated the pressure on BiPAP where uncomfortable and I will place her on AVAPS tonight with settings rate 14, TV 400, EPAP5, Inspiratory min 7, inspiratory max 25, 35% FIO2. I willobtain ABG prior to removal of noninvasive. (2) Pneumonia: Qualifiers: Laterality: unspecified laterality Lung location: unspecified part of lung Pneumonia type: due to unspecified organism Qualified Code(s): J18.9 - Pneumonia, unspecified organism Code(s): J18.9 - Pneumonia, unspecified organism Status: Acute Assessment and Plan: 08/31 Patient with new infiltrate to the right middle lobe on her CT scan and has currently been in the hospital and came from an assisted living facility. I will discontinue ceftriaxone and azithromycin and place her on Vanco, Zosyn and Levaquin pending cultures. SARS negative. I will obtain a chest x-ray today and in the morning. 09/01 WBC 3.8, feels better, CXR no progression. Continue antibiotics. Will follow with you. 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 Patient was found to right middle lobe pneumonia on CT scan which was new since CT on 12/07/2019. Patient also is noted to have resection in the right upper lobe and mild upper lobe centrilobular emphysema. Patient had ABG of 7.30//82 on 5 L NC. Patient placed on BiPAP 07/24 30% with repeat ABG 7.37. Admitted to floor and I was consulted. Patient now on BiPAP in no respiratory distress, asking to take mask off. She does not remember why she was in hospital. No wheezes on exam. Will DC BiPAP at this time. Patient had PFTs on 12/25/2019 which demonstrated an FVC of 1.64 L, 55% predicted,. The pre bronchodilator FEV1 was 0.84 L, 39% predicted. The FEV1: FVC ratio was 51%. The post bronchodilator FVC is 1.67 L, representing a 2% increase. The post bronchodilator FEV1 is 0.90 L, representing a 7% increase. Patient had a total lung capacity of 3 point 3 5, 64% predicted. Patient's FRC was 2.50, 110% predicted. Residual volume was 1.65 L, 78% predicted. The patient's diffusing capacity was 6.7, 26% predicted. Patient's diffusing capacity corrected for alveolar volume was 2.87, 82% predicted. 09/01/20 Patient was off BiPAP since 09:30 yesterday and currenlty on2L NC (her home level) with saturations 93%. Patient states she is better and does not remember events leading to her hospitalization. States that she is 5
[2020-09-01 12:24] LABS: Glucose Point of Care 96 (65-105)
--- NOTE | 2020-09-01 12:24 | PM.IMPN ---
Progress Note: A&P Assessment and Plan (1) Acute hypercapnic respiratory failure: Code(s): J96.02 - Acute respiratory failure with hypercapnia Status: Acute Assessment and Plan: Patient was treated with BiPAP and and inhaler treatment pulmonology recommendation appreciated continue oxygen BiPAP at night (2) Pneumonia: Qualifiers: Laterality: unspecified laterality Lung location: unspecified part of lung Pneumonia type: due to unspecified organism Qualified Code(s): J18.9 - Pneumonia, unspecified organism Code(s): J18.9 - Pneumonia, unspecified organism Status: Acute Assessment and Plan: Probable secondary to Gram-negative pneumonia patient was started on broad-spectrum IV antibiotics pending culture Vancomycin Zosyn Levaquin (3) Encephalopathy acute: Code(s): G93.40 - Encephalopathy, unspecified Status: Acute Assessment and Plan: Most likely metabolic encephalopathy most likely multifactorial related to medication and CO2 retention resolved (4) Congestive heart failure (CHF): Code(s): I50.9 - Heart failure, unspecified Status: Acute Assessment and Plan: Most likely diastolic stable continue home medication (5) Peripheral artery disease: Code(s): I73.9 - Peripheral vascular disease, unspecified Status: Chronic Assessment and Plan: Continue all med (6) Hypothyroidism: Code(s): E03.9 - Hypothyroidism, unspecified Status: Chronic Assessment and Plan: Levothyroxine (7) Depression: Code(s): F32.9 - Major depressive disorder, single episode, unspecified Status: Chronic Assessment and Plan: Continue home medication (8) COPD (chronic obstructive pulmonary disease): Code(s): J44.9 - Chronic obstructive pulmonary disease, unspecified Status: Chronic Assessment and Plan: With acute exacerbation inhaler treatment (9) Hyperlipidemia: Code(s): E78.5 - Hyperlipidemia, unspecified Status: Chronic Assessment and Plan: Statin (10) Peptic ulcer disease: Code(s): K27.9 - Peptic ulcer, site unspecified, unspecified as acute or chronic, without hemorrhage or perforation Status: Acute Assessment and Plan: Stable (11) Atrial fibrillation: Qualifiers: Atrial fibrillation type: unspecified Qualified Code(s): I48.91 - Unspecified atrial fibrillation Code(s): I48.91 - Unspecified atrial fibrillation Status: Inactive Assessment and Plan: Probably paroxysmal AFib Coreg digoxin Xarelto Of digoxin level on 09/01/2019 Subjective Date/time seen: 09/01/20 12:24 Patient seen and examined Patient feels weak short of breath patient is off BiPAP Patient was admitted to the hospital with shortness of breath altered mental status was found to have been no pneumonia on the CT scan of the chest also ABG showed acute on top of chronic hypercapnic respiratory failure was treated with BiPAP IV antibiotics pulmonology was consulted broad-spectrum IV antibiotic was started follow-up chest x-ray was ordered by [employer] regulator Shortness of breath has improved and patient currently on oxygen of BiPAP Mental status is improved patient is alert and orient Patient denies fever headache chest pain I am seeing the patient for Exam Narrative: Exam Narrative: Alert Chest minimal crackles and wheeze Abdomen nontender nondistended CVS S1 + S2 Minimal Lower extremity edema Objective Data Vital Signs Vital Signs: Vital Signs - 24 hr 08/31/20 14:00 08/31/20 14:35 08/31/20 14:41 Temperature Pulse Rate 72 70 66 Respiratory Rate 20 20 Blood Pressure Pulse Oximetry 08/31/20 16:00 08/31/20 16:40 08/31/20 18:00 Temperature 98 F Pulse Rate 78 93 94 Respiratory Rate 18 Blood Pressure 116/48 L Pulse Oximetry 100 08/31/20 19:08 08/31/20 20:00 08/31/20 20:42 Temperature 99.8 F H 98.6 F Pulse Rate 96
[2020-09-01 13:48] LABS: Digoxin 0.7 ng/mL (0.8-2.0)
[2020-09-01 17:11] LABS: Glucose Point of Care 125 (65-105)
[2020-09-01] MEDS: POTASSIUM CHLORIDE 20 MEQ PACKET (FOR LIQUID) PO (17:53)
[2020-09-01] MEDS: RIVAROXABAN 20 MG TABLET PO (17:54)
[2020-09-01] MEDS: SIMVASTATIN 20 MG TABLET PO (21:15)
[2020-09-01] MEDS: ACETAMINOPHEN 500 MG TABLET 1000 MG PO (21:53)
[2020-09-02] VITALS (24 sets, daily range): BP systolic 109–136; BP diastolic 45–81; PULSE 69–102; RESP 14–24; TEMP 36.6–37.1; O2SAT 90–100
[2020-09-02 00:03] LABS: Glucose Point of Care 109 (65-105)
[2020-09-02] MEDS: ALBUTEROL SULFATE NEB 2.5 MG/0.5 ML INH 5 MG INHALATION ×4 (01:55→20:03)
[2020-09-02] MEDS: IPRATROPIUM BR 0.02% INH SOLN 0.5 MG/2.5 ML VIAL INHALATION ×4 (01:55→20:04)
[2020-09-02 04:35] LABS: Alveolar/Arterial O2 Gradient 60.5 mmHg; Fractional Inspired Oxygen 30 %; HCO3 ABG 30.6 mEq/l (22.0-26.0); Oxygen Saturation ABG 97.8 % (95.0-100.0); Oxyhemoglobin 96.3 % THb (90.0-100.0); PCO2 ABG 44.8 mmHg (35.0-45.0); PO2 ABG 100.8 mmHg (80.0-100.0); PO2 FiO2 Ratio Arterial Blood 3.36 %; Total Hemoglobin 9.5 g/dL (12.0-18.0); pH ABG 7.453 (7.350-7.450)
[2020-09-02 04:36] LABS: Device NON-INVASIVE VENT; Modified Allen's Test Pass; Site Drawn RIGHT RADIAL
[2020-09-02 04:38] LABS: Non-Invasive Inspiratory Pressure 25 CMH2O; Non-Invasive Vent Rate 14 /MIN
[2020-09-02 04:39] LABS: Non-Invasive Expiratory Pressure 5 CMH2O
[2020-09-02 05:11] LABS: Basophils Percent Auto 0.6 % (0.2-1.2); Eosinophils Absolute Auto 0.1 K/mm3 (0-0.3); Eosinophils Percent Auto 3.8 % (0-4.4); Hematocrit 28.6 % (37.0-47.0); Hemoglobin 8.7 g/dL (12.0-15.0); Immature Granulocyte Absolute 0.01 K/mm3 (0.00-0.031); Immature Granulocyte Percent A 0.3 % (0-0.5); Lymphocytes Absolute Auto 0.97 K/mm3 (0.9-3.2); Lymphocytes Percent Auto 30.9 % (18.3-44.2); Mean Corpuscular HGB Conc 30.4 g/dl (32-36); Mean Corpuscular Volume 95.3 fl (80-100); Mean Platelet Volume 11.5 fl (7.4-10.4); Monocytes Absolute Auto 0.3 K/mm3 (0.1-0.6); Monocytes Percent Auto 8.6 % (2.6-8.5); Neutrophils Absolute Auto 1.8 K/mm3 (1.3-6.7); Neutrophils Percent Auto 55.8 % (45.5-73.1); Platelet Count Result 180 k/mm3 (150-375); Red Cell Distribution Width 14.6 % (11.5-14.5); White Blood Count 3.1 K/mm3 (4.5-10.0)
[2020-09-02 05:30] LABS: Alanine Aminotransferase 12 U/L (4-35); Albumin Level 3.2 g/dL (3.5-5.1); Alkaline Phosphatase 77 U/L (38-126); Anion Gap 0 mmol/L (8-16); Aspartate Amino Transferase 18 U/L (14-36); Bilirubin,Total 0.3 mg/dL (0.2-1.3); Blood Urea Nitrogen 19 mg/dL (7-17); Calcium 8.1 mg/dL (8.4-10.2); Carbon Dioxide 39 mmol/L (22-30); Chloride 101 mmol/L (98-107); Estimated CRCL calculation 48 ml/min; Estimated Glomerular Filt Rate 44; Glucose 104 mg/dL (65-105); Potassium 3.3 mmol/L (3.4-5.0); Sodium 140 mmol/L (137-145)
[2020-09-02] MEDS: ACETAMINOPHEN 500 MG TABLET 1000 MG PO ×2 (06:15→17:01)
[2020-09-02] MEDS: LEVOTHYROXINE SODIUM 125 MCG TABLET PO (06:15)
--- NOTE | 2020-09-02 08:03 | PCRCNOTE ---
Contacted [facility] Patient for trilogy arrangement. Faxed over initial paperwork 09/01/20 [id number].
[2020-09-02] MEDS: carvediloL 3.125 MG TABLET PO ×2 (08:40→17:04)
[2020-09-02] MEDS: POTASSIUM CHLORIDE 20 MEQ TABLET.ER PO (08:41)
[2020-09-02] MEDS: CHOLECALCIFEROL 1,000 UNITS TABLET 1000 UNITS PO (08:41)
[2020-09-02] MEDS: PENTOXIFYLLINE 400 MG TABCR PO ×2 (08:41→17:06)
[2020-09-02] MEDS: SERTRALINE HCL 25 MG TABLET PO (08:41)
[2020-09-02] MEDS: CYANOCOBALAMIN 1,000 MCG TABLET 1000 MCG PO (08:41)
[2020-09-02] MEDS: PREGABALIN (*CRX) 50 MG CAPSULE 200 MG PO ×2 (08:42→17:03)
[2020-09-02] MEDS: ACIDOPHILUS/BULGARICUS CHEWABLE TABLET 1 TABLET PO ×2 (08:42→17:06)
[2020-09-02] MEDS: PANTOPRAZOLE 40 MG TABLET PO (08:42)
[2020-09-02] MEDS: DIGOXIN TAB 125 MCG TABLET PO (08:42)
[2020-09-02] MEDS: SACUBITRIL/VALSARTAN 49-51 MG TABLET 1 TABLET PO ×2 (08:42→17:05)
[2020-09-02 11:32] LABS: Glucose Point of Care 171 (65-105)
--- NOTE | 2020-09-02 13:00 | PM.PNPUL ---
Progress Note: A&P Assessment and Plan (1) Acute and chronic respiratory failure with hypercapnia: Code(s): J96.22 - Acute and chronic respiratory failure with hypercapnia Status: Acute Assessment and Plan: 08/31 Patient with acute on chronic respiratory failure from COPD. Patient's blood gas in the emergency room was 7.30-60 6-82 on 5 L nasal cannula. This represents an acute on chronic respiratory acidosis. Patient has improved on BiPAP 12/6 and is now comfortable and requesting to take the BiPAP off. BiPAP has been removed and she is now on 2 L nasal cannula saturations 100%. I will continue nebulized albuterol and ipratropium bromide at this point. Patient does not have active wheezing and I will hold off on inhaled or systemic steroids. I will repeat a chest x-ray in the morning. Patient does qualify for noninvasive ventilation and I will continue her BiPAP 12/6 tonight as she would benefit from noninvasive ventilation for her hypercarbia and her elevated bicarb level. 09/01 Patient with chronic respiratory failure with admit ABG on 5 L NC 7.30/66/82 with elevated CO2 levels. Patient would benefit from noninvasive ventilation bue to chronic CO2 retention from COPD. Continue albuterol and ipratroprium nebulizes, no wheezes today. She stated the pressure on BiPAP where uncomfortable and I will place her on AVAPS tonight with settings rate 14, TV 400, EPAP5, Inspiratory min 7, inspiratory max 25, 35% FIO2. I willobtain ABG prior to removal of noninvasive. 09/02 Patient wore hospital AVAPS rate 14, TV 400, E pap 5, Expiratory minimum pressure 7, inspiratory maximum pressure 25, 30% FiO2. Patient said she was comfortable on the settings. Blood gas prior to removal demonstrated 7.45/44/101. Patient states that she is breathing better again today and feels 80-85% back to baseline. Continue nebulized albuterol and ipratroprium. Will attempt to obtain home machine in hospital prior to discharge. (2) Pneumonia: Qualifiers: Laterality: unspecified laterality Lung location: unspecified part of lung Pneumonia type: due to unspecified organism Qualified Code(s): J18.9 - Pneumonia, unspecified organism Code(s): J18.9 - Pneumonia, unspecified organism Status: Acute Assessment and Plan: 08/31 Patient with new infiltrate to the right middle lobe on her CT scan and has currently been in the hospital and came from an assisted living facility. I will discontinue ceftriaxone and azithromycin and place her on Vanco, Zosyn and Levaquin pending cultures. SARS negative. I will obtain a chest x-ray today and in the morning. 09/01 WBC 3.8, feels better, CXR no progression. Continue antibiotics. Patient with vanco sensitive enterococcus in urine. 09/02 WBC 3.1K, feeling better, continue antibiotics. Blood cultures negative, SARS negative. Will follow with you. 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 Patient was found to right middle lobe pneumonia on CT scan which was new since CT on 12/07/2019. Patient also is noted to have resection in the right upper lobe and mild upper lobe centrilobular emphysema. Patient had ABG of 7.30/66/82 on 5 L NC. Patient placed on BiPAP 12/6 30% with repeat ABG 7.37/51/76. Admitted to floor and I was consulted. Patient now on BiPAP in no respiratory distress, asking to take mask off. She does not remember why she was in hospital. No wheezes on exam. Will DC BiPAP at this time. Patient had PFTs on 12/25/2019 which demonstrated an FVC of 1.64 L, 55% predicted,. The pre bronchodilator FEV1 was 0.84 L, 39% predicted. The FEV1: FVC ratio was 51%. The post bronchodilator FV
--- NOTE | 2020-09-02 14:29 | HOMEO2EVAL ---
Home Oxygen Evaluation RC: Home Oxygen (O2) Evaluation Start: 09/02/20 14:05 Freq: ONCE Status: Active Protocol: RPE Activity Type Activity Date Activity User E-Sign Co-Sign Detail Recorded Client Recorded Date Recorded By Document 09/02/20 14:00 MARY [email or web address] 09/02/20 14:29 MARY Document 09/02/20 14:10 MARY [email or web address] 09/02/20 14:29 MARY Document 09/02/20 14:20 MARY [email or web address] 09/02/20 14:29 MARY 09/02/20 09/02/20 09/02/20 14:00 14:10 14:20 Home O2 Evaluation Test Phase Resting Exercise Resting Oxygen Delivery Room Air Room Air Room Air Pulse Oximetry (90-100 %) 94 92 94 Home Oxygen Evaluation Comments PT TRANSFERED UP TO [facility] AND STATES SHE DOESNT WALK. Treatment Charges O2 Evaluation
--- NOTE | 2020-09-02 14:30 | PCRCNOTE ---
HOME O2 EVAL DONE, NO HOME O2 NEEDED AT THIS TIME, PT TRANSFERRED UP TO [facility] AND STATES SHE DOESN'T WALK.
[2020-09-02 16:47] LABS: Glucose Point of Care 75 (65-105)
[2020-09-02] MEDS: RIVAROXABAN 20 MG TABLET PO (17:05)
--- NOTE | 2020-09-02 17:30 | PC.NURSE ---
This patient, Valorie Harris, was transferred to [facility] on 09/02/20 at 1730. Personal belongings sent with patient. Report given to LASHONDA Arauz. Appropriate documentation sent with patient.
[2020-09-02] MEDS: SIMVASTATIN 20 MG TABLET PO (21:45)
[2020-09-02 21:52] LABS: Glucose Point of Care 122 (65-105)
[2020-09-03] VITALS (18 sets, daily range): BP systolic 96–137; BP diastolic 45–81; PULSE 73–116; RESP 15–22; TEMP 36.2–36.8; O2SAT 93–100
[2020-09-03 05:21] LABS: Alveolar/Arterial O2 Gradient 76.1 mmHg; Base Excess ABG 4.1 mEq/l (+/-2.0); Carboxyhemoglobin 0.3 % THb (0-2.0); Fractional Inspired Oxygen 28 %; HCO3 ABG 27.9 mEq/l (22.0-26.0); Methemoglobin ABG 0.1 %THb (0-1.5); Oxygen Saturation ABG 96.3 % (95.0-100.0); Oxyhemoglobin 95.1 % THb (90.0-100.0); PCO2 ABG 38.8 mmHg (35.0-45.0); PO2 ABG 77.8 mmHg (80.0-100.0); PO2 FiO2 Ratio Arterial Blood 2.78 %; Reduced Hemoglobin 4.5 %THb (0-5.0); Total Hemoglobin 11.9 g/dL (12.0-18.0); pH ABG 7.475 (7.350-7.450)
[2020-09-03 05:22] LABS: Device NON-INVASIVE VENT; Modified Allen's Test Pass; Site Drawn LEFT RADIAL
[2020-09-03 05:23] LABS: Non-Invasive Vent Rate 14 /MIN
[2020-09-03 05:52] LABS: Glucose Point of Care 104 (65-105)
[2020-09-03] MEDS: LEVOTHYROXINE SODIUM 125 MCG TABLET PO (06:00)
[2020-09-03 07:55] LABS: Glucose Point of Care 135 (65-105)
[2020-09-03 08:07] LABS: Basophils Absolute Auto 0.1 K/mm3 (0.0-0.1); Basophils Percent Auto 0.8 % (0.2-1.2); Eosinophils Absolute Auto 0.2 K/mm3 (0-0.3); Eosinophils Percent Auto 3.2 % (0-4.4); Immature Granulocyte Absolute 0.02 K/mm3 (0.00-0.031); Immature Granulocyte Percent A 0.3 % (0-0.5); Lymphocytes Absolute Auto 0.98 K/mm3 (0.9-3.2); Lymphocytes Percent Auto 16.6 % (18.3-44.2); Mean Corpuscular HGB Conc 31.3 g/dl (32-36); Mean Corpuscular Volume 92.8 fl (80-100); Mean Platelet Volume 10.8 fl (7.4-10.4); Monocytes Absolute Auto 0.5 K/mm3 (0.1-0.6); Monocytes Percent Auto 8.3 % (2.6-8.5); Neutrophils Absolute Auto 4.2 K/mm3 (1.3-6.7); Neutrophils Percent Auto 70.8 % (45.5-73.1); Platelet Count Result 206 k/mm3 (150-375); Red Blood Count 3.45 M/mm3 (4.2-5.4); Red Cell Distribution Width 14.6 % (11.5-14.5); White Blood Count 5.9 K/mm3 (4.5-10.0)
[2020-09-03] MEDS: ALBUTEROL SULFATE NEB 2.5 MG/0.5 ML INH 5 MG INHALATION ×3 (08:14→21:57)
[2020-09-03] MEDS: IPRATROPIUM BR 0.02% INH SOLN 0.5 MG/2.5 ML VIAL INHALATION ×3 (08:14→21:57)
[2020-09-03 08:20] LABS: Alanine Aminotransferase 13 U/L (4-35); Albumin Level 3.7 g/dL (3.5-5.1); Alkaline Phosphatase 77 U/L (38-126); Anion Gap 4 mmol/L (8-16); Aspartate Amino Transferase 15 U/L (14-36); Bilirubin,Total 0.3 mg/dL (0.2-1.3); Blood Urea Nitrogen 15 mg/dL (7-17); Calcium 8.2 mg/dL (8.4-10.2); Carbon Dioxide 33 mmol/L (22-30); Chloride 102 mmol/L (98-107); Estimated CRCL calculation 49 ml/min; Estimated Glomerular Filt Rate 44; Glucose 122 mg/dL (65-105); Potassium 3.5 mmol/L (3.4-5.0); Sodium 139 mmol/L (137-145)
[2020-09-03 08:45] LABS: Vancomycin Trough 13.5 ug/mL (10.0-20.0)
[2020-09-03] MEDS: ACIDOPHILUS/BULGARICUS CHEWABLE TABLET 1 TABLET PO ×2 (09:41→17:58)
[2020-09-03] MEDS: carvediloL 3.125 MG TABLET PO ×2 (09:41→17:58)
[2020-09-03] MEDS: CHOLECALCIFEROL 1,000 UNITS TABLET 1000 UNITS PO (09:42)
[2020-09-03] MEDS: POTASSIUM CHLORIDE 20 MEQ TABLET.ER PO (09:42)
[2020-09-03] MEDS: PANTOPRAZOLE 40 MG TABLET PO (09:42)
[2020-09-03] MEDS: PENTOXIFYLLINE 400 MG TABCR PO ×2 (09:42→18:00)
[2020-09-03] MEDS: SERTRALINE HCL 25 MG TABLET PO (09:42)
[2020-09-03] MEDS: DIGOXIN TAB 125 MCG TABLET PO (09:42)
[2020-09-03] MEDS: CYANOCOBALAMIN 1,000 MCG TABLET 1000 MCG PO (09:42)
[2020-09-03] MEDS: FUROSEMIDE 40 MG TABLET 80 MG PO (09:42)
[2020-09-03] MEDS: PREGABALIN (*CRX) 50 MG CAPSULE 200 MG PO ×2 (09:44→17:59)
[2020-09-03] MEDS: SACUBITRIL/VALSARTAN 49-51 MG TABLET 1 TABLET PO ×2 (10:23→17:59)
[2020-09-03] MEDS: ACETAMINOPHEN 500 MG TABLET 1000 MG PO ×2 (11:19→18:00)
--- NOTE | 2020-09-03 11:53 | PM.IMPN ---
Progress Note: A&P Assessment and Plan (1) Acute hypercapnic respiratory failure: Code(s): J96.02 - Acute respiratory failure with hypercapnia Status: Acute Assessment and Plan: Patient was treated with BiPAP and and inhaler treatment pulmonology recommendation appreciated continue oxygen BiPAP at night Plan for BiPAP on discharge Anticipate probable discharge on Saturday (2) Pneumonia: Qualifiers: Laterality: unspecified laterality Lung location: unspecified part of lung Pneumonia type: due to unspecified organism Qualified Code(s): J18.9 - Pneumonia, unspecified organism Code(s): J18.9 - Pneumonia, unspecified organism Status: Acute Assessment and Plan: Probable secondary to Gram-negative pneumonia patient was started on broad-spectrum IV antibiotics pending culture Vancomycin Zosyn Levaquin was discontinued on 09/03/2020 started patient on IV Rocephin and oral doxycycline Anticipate total course of antibiotic of 10 days (3) Encephalopathy acute: Code(s): G93.40 - Encephalopathy, unspecified Status: Acute Assessment and Plan: Most likely metabolic encephalopathy most likely multifactorial related to medication and CO2 retention resolved (4) Congestive heart failure (CHF): Code(s): I50.9 - Heart failure, unspecified Status: Acute Assessment and Plan: Most likely diastolic stable continue home medication (5) Peripheral artery disease: Code(s): I73.9 - Peripheral vascular disease, unspecified Status: Chronic Assessment and Plan: Continue all med (6) Hypothyroidism: Code(s): E03.9 - Hypothyroidism, unspecified Status: Chronic Assessment and Plan: Levothyroxine (7) Depression: Code(s): F32.9 - Major depressive disorder, single episode, unspecified Status: Chronic Assessment and Plan: Continue home medication (8) COPD (chronic obstructive pulmonary disease): Code(s): J44.9 - Chronic obstructive pulmonary disease, unspecified Status: Chronic Assessment and Plan: With acute exacerbation inhaler treatment (9) Hyperlipidemia: Code(s): E78.5 - Hyperlipidemia, unspecified Status: Chronic Assessment and Plan: Statin (10) Peptic ulcer disease: Code(s): K27.9 - Peptic ulcer, site unspecified, unspecified as acute or chronic, without hemorrhage or perforation Status: Acute Assessment and Plan: Stable (11) Atrial fibrillation: Qualifiers: Atrial fibrillation type: unspecified Qualified Code(s): I48.91 - Unspecified atrial fibrillation Code(s): I48.91 - Unspecified atrial fibrillation Status: Inactive Assessment and Plan: Probably paroxysmal AFib Coreg digoxin Xarelto Of digoxin level on 09/01/2019 (12) Elevated serum creatinine: Code(s): R79.89 - Other specified abnormal findings of blood chemistry Status: Acute Assessment and Plan: Monitor renal function DC Zosyn and vancomycin Subjective Date/time seen: 09/03/20 11:53 Interval history: Valorie Harris is a 75 year old female with a past medical history of lunbg cancer 2006 s/p RUL resetion, COPD on 2 L NC oxygen and chronic hypercapnic respiratory failure, chronic pain syndrome, and CHF who presented to the ER from [facility] with altered mental status. Patient was found to have pneumonia CO2 retention was treated with BiPAP patient was treated with broad-spectrum IV antibiotic Levaquin vanc and Zosyn pulmonology was consulted patient condition continued to improve patient was transferred to medical with telemetry antibiotic was changed to IV Rocephin and doxycycline patient complained of diarrhea multiple times C diff was sent on 09/03/2020 plan to discharge patient to rehab versus assisted living probably on Saturday pending C diff also patient has obstructive uropathy patient came to the hospital with Bill
[2020-09-03] MEDS: TAMSULOSIN HCL 0.4 MG CAPSULE PO (12:37)
--- NOTE | 2020-09-03 16:41 | PM.PNPUL ---
Progress Note: A&P Assessment and Plan (1) Acute and chronic respiratory failure with hypercapnia: Code(s): J96.22 - Acute and chronic respiratory failure with hypercapnia Status: Acute Assessment and Plan: 08/31 Patient with acute on chronic respiratory failure from COPD. Patient's blood gas in the emergency room was 7.304/66./82.4 on 5 L nasal cannula. This represents an acute on chronic respiratory acidosis. Patient has improved on BiPAP /6 and is now comfortable and requesting to take the BiPAP off. BiPAP has been removed and she is now on 2 L nasal cannula saturations 100%. I will continue nebulized albuterol and ipratropium bromide at this point. Patient does not have active wheezing and I will hold off on inhaled or systemic steroids. I will repeat a chest x-ray in the morning. Patient does qualify for noninvasive ventilation and I will continue her BiPAP 12/6 tonight as she would benefit from noninvasive ventilation for her hypercarbia and her elevated bicarb level. 09/01 Patient with chronic respiratory failure with admit ABG on 5 L NC 7.30/66/82 with elevated CO2 levels. Patient would benefit from noninvasive ventilation due to chronic CO2 retention from COPD. Continue albuterol and ipratroprium nebulized, no wheezes today. She stated the pressure on BiPAP was uncomfortable and I will place her on AVAPS tonight with settings rate 14, TV 400, EPAP5, Inspiratory min 7, inspiratory max 25, 35% FIO2. I will obtain ABG prior to removal of noninvasive. 09/02 Patient wore hospital AVAPS rate 14, TV 400, E pap 5, Expiratory minimum pressure 7, inspiratory maximum pressure 25, 30% FiO2. Patient said she was comfortable on the settings. Blood gas prior to removal demonstrated 7.45/44/101. Patient states that she is breathing better again today and feels 80-85% back to baseline. Continue nebulized albuterol and ipratroprium. Will attempt to obtain home machine in hospital prior to discharge. 09/03 She is now on room air in the day, tolerated AVAPS overnight. ABG today showed 7.47/ 38.8 / 77.8 on 2 L and AVAPS use during sleep. This shows elimination of hypercapnea with nocturnal use. Continue to use at night. (2) Pneumonia: Qualifiers: Laterality: unspecified laterality Lung location: unspecified part of lung Pneumonia type: due to unspecified organism Qualified Code(s): J18.9 - Pneumonia, unspecified organism Code(s): J18.9 - Pneumonia, unspecified organism Status: Acute Assessment and Plan: 08/31 Patient with new infiltrate to the right middle lobe on her CT scan and has currently been in the hospital and came from an assisted living facility. She was initially on ceftriaxone and azithromycin, changed to Vanco, Zosyn, Levaquin pending cultures. SARS negative. 09/01 WBC 3.8, feels better, CXR no progression. Continue antibiotics. Patient with vanco sensitive enterococcus in urine. 09/02 WBC 3.1K, feeling better, continue antibiotics. Blood cultures negative, SARS negative. 09/03 Vanco and Zosyn stopped, ceftriaxone restarted along with addition of Doxycycline Will follow with you. Subjective Date/time seen: 09/03/20 16:41 This 75 yo female is [facility] for COPD, home O2 use, has chronically elevated R hemidiaphragm and infiltrate in the bases CXR 09/01 : Stable airspace opacities of the lung bases and left midlung zone, consistent with atelectasis versus pneumonia. 09/03 She is now on room air in the day, and uses 2 L/min at night with BiPAP. WBC is up to normal range 5.9 She sees Akosua Stern at [place], and Dr Shi for cardiology. She has not had O2 needs evaluated for several years, and needs to follow up after discharge. She had a Khan, placed today for urinary retention 950 ml returned, and stool was sent for C diff. as she had
[2020-09-03 17:00] LABS: Glucose Point of Care 60 (65-105)
[2020-09-03] MEDS: RIVAROXABAN 20 MG TABLET PO (18:00)
--- NOTE | 2020-09-03 18:31 | PC.NURSE ---
16F cath placed after bladder scan >750ml called to Dr. Sosa. Consult Urology, Dr. Manriquez is on line csr, okay to see in am. Dr. Sosa to notify.
--- NOTE | 2020-09-03 19:20 | PC.NURSE ---
This patient, Valorie Harris, was received from [[facility]] on 09/03/20 at 1920. Patient/family oriented to unit policies and routines
[2020-09-03] MEDS: MENTHOL 10% / METHYL SALICYLATE 15% 57 GM TUBE 1 APPLIC TOPICAL (20:11)
[2020-09-03] MEDS: DOXYCYCLINE HYCLATE 100 MG TABLET PO (20:13)
[2020-09-03] MEDS: SIMVASTATIN 20 MG TABLET PO (20:13)
[2020-09-03 20:25] LABS: Glucose Point of Care 92 (65-105)
[2020-09-03 20:37] LABS: Glucose Point of Care 124 (65-105)
[2020-09-04] VITALS (19 sets, daily range): BP systolic 115–129; BP diastolic 74–89; PULSE 74–94; RESP 16–20; TEMP 36.3–36.7; O2SAT 94–98
[2020-09-04] MEDS: ALBUTEROL SULFATE NEB 2.5 MG/0.5 ML INH 5 MG INHALATION ×4 (04:00→20:58)
[2020-09-04] MEDS: IPRATROPIUM BR 0.02% INH SOLN 0.5 MG/2.5 ML VIAL INHALATION ×4 (04:00→20:58)
[2020-09-04] MEDS: ACETAMINOPHEN 500 MG TABLET 1000 MG PO ×3 (05:45→17:29)
[2020-09-04] MEDS: LEVOTHYROXINE SODIUM 125 MCG TABLET PO (05:45)
[2020-09-04 06:02] LABS: Basophils Absolute Auto 0.1 K/mm3 (0.0-0.1); Basophils Percent Auto 0.9 % (0.2-1.2); Eosinophils Absolute Auto 0.2 K/mm3 (0-0.3); Eosinophils Percent Auto 2.6 % (0-4.4); Hematocrit 28.4 % (37.0-47.0); Hemoglobin 8.9 g/dL (12.0-15.0); Immature Granulocyte Absolute 0.01 K/mm3 (0.00-0.031); Immature Granulocyte Percent A 0.2 % (0-0.5); Lymphocytes Absolute Auto 1.04 K/mm3 (0.9-3.2); Lymphocytes Percent Auto 18.1 % (18.3-44.2); Mean Corpuscular HGB Conc 31.3 g/dl (32-36); Mean Corpuscular Hemoglobin 28.3 pg (26-34); Mean Corpuscular Volume 90.4 fl (80-100); Mean Platelet Volume 10.4 fl (7.4-10.4); Monocytes Absolute Auto 0.6 K/mm3 (0.1-0.6); Monocytes Percent Auto 10.3 % (2.6-8.5); Neutrophils Absolute Auto 3.9 K/mm3 (1.3-6.7); Neutrophils Percent Auto 67.9 % (45.5-73.1); Platelet Count Result 179 k/mm3 (150-375); Red Blood Count 3.14 M/mm3 (4.2-5.4); Red Cell Distribution Width 14.6 % (11.5-14.5); White Blood Count 5.8 K/mm3 (4.5-10.0)
[2020-09-04 06:18] LABS: Alanine Aminotransferase 13 U/L (4-35); Albumin Level 3.1 g/dL (3.5-5.1); Alkaline Phosphatase 71 U/L (38-126); Anion Gap 2 mmol/L (8-16); Aspartate Amino Transferase 21 U/L (14-36); Bilirubin,Total 0.2 mg/dL (0.2-1.3); Blood Urea Nitrogen 23 mg/dL (7-17); Calcium 7.6 mg/dL (8.4-10.2); Carbon Dioxide 34 mmol/L (22-30); Chloride 101 mmol/L (98-107); Estimated CRCL calculation 25 ml/min; Estimated Glomerular Filt Rate 20; Glucose 101 mg/dL (65-105); Potassium 3.3 mmol/L (3.4-5.0); Sodium 137 mmol/L (137-145)
[2020-09-04 06:56] LABS: Glucose Point of Care 118 (65-105)
[2020-09-04 08:22] LABS: Glucose Point of Care 108 (65-105)
[2020-09-04] MEDS: PREGABALIN (*CRX) 50 MG CAPSULE 200 MG PO ×2 (08:50→16:48)
[2020-09-04] MEDS: DIGOXIN TAB 125 MCG TABLET PO (08:51)
[2020-09-04] MEDS: PANTOPRAZOLE 40 MG TABLET PO (08:51)
[2020-09-04] MEDS: DOXYCYCLINE HYCLATE 100 MG TABLET PO ×2 (08:51→20:45)
[2020-09-04] MEDS: CYANOCOBALAMIN 1,000 MCG TABLET 1000 MCG PO (08:51)
[2020-09-04] MEDS: PENTOXIFYLLINE 400 MG TABCR PO ×2 (08:51→16:46)
[2020-09-04] MEDS: SACUBITRIL/VALSARTAN 49-51 MG TABLET 1 TABLET PO ×2 (08:51→16:46)
[2020-09-04] MEDS: CHOLECALCIFEROL 1,000 UNITS TABLET 1000 UNITS PO (08:51)
[2020-09-04] MEDS: SERTRALINE HCL 25 MG TABLET PO (08:51)
[2020-09-04] MEDS: FUROSEMIDE 40 MG TABLET 80 MG PO (08:52)
[2020-09-04] MEDS: POTASSIUM CHLORIDE 20 MEQ TABLET.ER PO (08:52)
[2020-09-04] MEDS: ACIDOPHILUS/BULGARICUS CHEWABLE TABLET 1 TABLET PO ×2 (08:52→16:45)
[2020-09-04] MEDS: carvediloL 3.125 MG TABLET PO ×2 (08:52→16:45)
[2020-09-04] MEDS: TAMSULOSIN HCL 0.4 MG CAPSULE PO (08:52)
[2020-09-04] MEDS: POTASSIUM CHLORIDE 20 MEQ TABLET 40 MEQ PO (09:21)
--- NOTE | 2020-09-04 13:14 | PM.IMPN ---
Progress Note: A&P Assessment and Plan (1) KONRAD (acute kidney injury): Code(s): N17.9 - Acute kidney failure, unspecified Status: Acute Assessment and Plan: Suspect due to volume depletion Associated decreased U.O. IV saline challenge F/u lab (2) Diarrhea: Qualifiers: Diarrhea type: unspecified type Qualified Code(s): R19.7 - Diarrhea, unspecified Code(s): R19.7 - Diarrhea, unspecified Status: Acute Assessment and Plan: C diff negative Suspect due to medications PRN loperamide (3) Acute hypercapnic respiratory failure: Code(s): J96.02 - Acute respiratory failure with hypercapnia Status: Acute Assessment and Plan: Patient was treated with BiPAP and and inhaler treatment pulmonology recommendation appreciated continue oxygen BiPAP at night Plan for BiPAP on discharge Possible discharge 09/05. (4) Pneumonia: Qualifiers: Laterality: unspecified laterality Lung location: unspecified part of lung Pneumonia type: due to unspecified organism Qualified Code(s): J18.9 - Pneumonia, unspecified organism Code(s): J18.9 - Pneumonia, unspecified organism Status: Acute Assessment and Plan: Probable secondary to Gram-negative pneumonia patient was started on broad-spectrum IV antibiotics pending culture Vancomycin Zosyn was discontinued on 09/03/2020 started patient on IV Rocephin and oral doxycycline Levaquin stopped after dose 5 on 09/04 (5) Encephalopathy acute: Code(s): G93.40 - Encephalopathy, unspecified Status: Acute Assessment and Plan: Most likely metabolic encephalopathy most likely multifactorial related to medication and CO2 retention resolved (6) Congestive heart failure (CHF): Qualifiers: Heart failure type: unspecified Heart failure chronicity: chronic Qualified Code(s): I50.9 - Heart failure, unspecified Code(s): I50.9 - Heart failure, unspecified Status: Acute Assessment and Plan: Most likely diastolic stable continue home medication (7) Peripheral artery disease: Code(s): I73.9 - Peripheral vascular disease, unspecified Status: Chronic Assessment and Plan: Continue all med (8) Hypothyroidism: Qualifiers: Hypothyroidism type: acquired Qualified Code(s): E03.9 - Hypothyroidism, unspecified Code(s): E03.9 - Hypothyroidism, unspecified Status: Chronic Assessment and Plan: Levothyroxine (9) Depression: Qualifiers: Depression Type: unspecified Qualified Code(s): F32.9 - Major depressive disorder, single episode, unspecified Code(s): F32.9 - Major depressive disorder, single episode, unspecified Status: Chronic Assessment and Plan: Continue home medication (10) COPD (chronic obstructive pulmonary disease): Qualifiers: COPD type: unspecified COPD Qualified Code(s): J44.9 - Chronic obstructive pulmonary disease, unspecified Code(s): J44.9 - Chronic obstructive pulmonary disease, unspecified Status: Chronic Assessment and Plan: With acute exacerbation inhaler treatment (11) Hyperlipidemia: Qualifiers: Hyperlipidemia type: unspecified Qualified Code(s): E78.5 - Hyperlipidemia, unspecified Code(s): E78.5 - Hyperlipidemia, unspecified Status: Chronic Assessment and Plan: Statin (12) Peptic ulcer disease: Code(s): K27.9 - Peptic ulcer, site unspecified, unspecified as acute or chronic, without hemorrhage or perforation Status: Acute Assessment and Plan: Stable (13) Atrial fibrillation: Qualifiers: Atrial fibrillation type: unspecified Qualified Code(s): I48.91 - Unspecified atrial fibrillation Code(s): I48.91 - Unspecified atrial fibrillation Status: Inactive Assessment and Plan: Probably paroxysmal AFib Coreg digoxin Xarelto Of digoxin level on 09/01/19
[2020-09-04] MEDS: SODIUM CHLORIDE 0.9% IV 1,000 ML 500 ML IV CONT (16:15)
[2020-09-04] MEDS: RIVAROXABAN 20 MG TABLET PO (16:46)
[2020-09-04 16:58] LABS: Add Urine Microscopic? YES; Appearance Urine Clear (Clear); Bacteria Urine Trace /hpf; Bilirubin Urine Negative (Negative); Blood Urine 1+ (Negative); Color Urine Straw (Yellow); Glucose Urine UA Negative (Negative); Ketones Urine Negative (Negative); Leukocyte Esterase Ur 1+ LEU/UL (NEGATIVE); Mucus Urine Rare /lpf; Nitrate Urine Negative (Negative); Protein Urine Negative (Negative); Renal Epithelial Cells Urine Rare /hpf (None Seen); Specific Grav Ur 1.009 (1.001-1.035); Squamous Epithelial Cell Urine Few /hpf (Few); Urobilinogen Urine Negative mg/dL (<2.0)
[2020-09-04 17:47] LABS: Anion Gap 4 mmol/L (8-16); Blood Urea Nitrogen 30 mg/dL (7-17); Calcium 7.5 mg/dL (8.4-10.2); Carbon Dioxide 32 mmol/L (22-30); Chloride 101 mmol/L (98-107); Estimated CRCL calculation 18 ml/min; Estimated Glomerular Filt Rate 13; Glucose 101 mg/dL (65-105); Potassium 3.8 mmol/L (3.4-5.0); Sodium 137 mmol/L (137-145)
--- NOTE | 2020-09-04 19:30 | PM.PNPUL ---
Progress Note: A&P Assessment and Plan (1) Acute and chronic respiratory failure with hypercapnia: Code(s): J96.22 - Acute and chronic respiratory failure with hypercapnia Status: Acute Assessment and Plan: 08/31 Patient with acute on chronic respiratory failure from COPD. Patient's blood gas in the emergency room was 7.304/66./82.4 on 5 L nasal cannula. This represents an acute on chronic respiratory acidosis. Patient has improved on BiPAP /6 and is now comfortable and requesting to take the BiPAP off. BiPAP has been removed and she is now on 2 L nasal cannula saturations 100%. I will continue nebulized albuterol and ipratropium bromide at this point. Patient does not have active wheezing and I will hold off on inhaled or systemic steroids. I will repeat a chest x-ray in the morning. Patient does qualify for noninvasive ventilation and I will continue her BiPAP 12/6 tonight as she would benefit from noninvasive ventilation for her hypercarbia and her elevated bicarb level. 09/01 Patient with chronic respiratory failure with admit ABG on 5 L NC 7.30/66/82 with elevated CO2 levels. Patient would benefit from noninvasive ventilation due to chronic CO2 retention from COPD. Continue albuterol and ipratroprium nebulized, no wheezes today. She stated the pressure on BiPAP was uncomfortable and I will place her on AVAPS tonight with settings rate 14, TV 400, EPAP5, Inspiratory min 7, inspiratory max 25, 35% FIO2. I will obtain ABG prior to removal of noninvasive. 09/02 Patient wore hospital AVAPS rate 14, TV 400, E pap 5, Expiratory minimum pressure 7, inspiratory maximum pressure 25, 30% FiO2. Patient said she was comfortable on the settings. Blood gas prior to removal demonstrated 7.45/44/101. Patient states that she is breathing better again today and feels 80-85% back to baseline. Continue nebulized albuterol and ipratroprium. Will attempt to obtain home machine in hospital prior to discharge. 09/03 She is now on room air in the day, tolerated AVAPS overnight. ABG today showed 7.47/ 38.8 / 77.8 on 2 L and AVAPS use during sleep. This shows elimination of hypercapnea with nocturnal use. Continue to use at night. 09/04 She has been followed by Akosua Stern [employer] [employer] at [place], and Dr Shi for cardiology. She has not had O2 needs evaluated for several years, and needs to follow up after discharge for O2 re-evaluation, now on RA in the day. (2) Pneumonia: Qualifiers: Laterality: unspecified laterality Lung location: unspecified part of lung Pneumonia type: due to unspecified organism Qualified Code(s): J18.9 - Pneumonia, unspecified organism Code(s): J18.9 - Pneumonia, unspecified organism Status: Acute Assessment and Plan: 08/31 Patient with new infiltrate to the right middle lobe on her CT scan and has currently been in the hospital and came from an assisted living facility. She was initially on ceftriaxone and azithromycin, changed to Vanco, Zosyn, Levaquin pending cultures. SARS negative. 09/01 WBC 3.8, feels better, CXR no progression. Continue antibiotics. Patient with vanco sensitive enterococcus in urine. 09/02 WBC 3.1K, feeling better, continue antibiotics. Blood cultures negative, SARS negative. 09/03 Vanco and Zosyn stopped, ceftriaxone restarted along with addition of Doxycycline 09/04 Stopped ceftriaxone with increase in creatinine 3.4, may have acute interstitial nephritis. CXR in the am to follow pneumonia. Stop ipratropium with acute bladder retention. She has a Khan in, and a urology consult has been requested. Subjective Date/time seen: 09/04/20 19:30 This 75 yo female is seen in [facility] for COPD, home O2 use, has chronically elevated R hemidiaphragm and infiltrate in the bases CXR 09/01 : Stable airspace opacities of the lung bases and left midlung zone, c
[2020-09-04] MEDS: SIMVASTATIN 20 MG TABLET PO (20:45)
[2020-09-04] MEDS: SODIUM CHLORIDE 0.9% IV 1,000 ML 50 ML IV CONT (22:41)
[2020-09-05] VITALS (19 sets, daily range): BP systolic 109–148; BP diastolic 70–78; PULSE 64–96; RESP 16–20; TEMP 35.7–36.3; O2SAT 93–94
[2020-09-05] MEDS: ALBUTEROL SULFATE NEB 2.5 MG/0.5 ML INH 5 MG INHALATION ×4 (03:11→21:12)
[2020-09-05] MEDS: LEVOTHYROXINE SODIUM 125 MCG TABLET PO (05:42)
[2020-09-05 06:06] LABS: Hematocrit 27.6 % (37.0-47.0); Hemoglobin 8.4 g/dL (12.0-15.0); Mean Corpuscular HGB Conc 30.4 g/dl (32-36); Mean Corpuscular Hemoglobin 27.8 pg (26-34); Mean Corpuscular Volume 91.4 fl (80-100); Mean Platelet Volume 11.3 fl (7.4-10.4); Platelet Count Result 182 k/mm3 (150-375); Red Blood Count 3.02 M/mm3 (4.2-5.4); Red Cell Distribution Width 14.6 % (11.5-14.5); White Blood Count 6.6 K/mm3 (4.5-10.0)
[2020-09-05 06:17] LABS: Albumin Level 3.1 g/dL (3.5-5.1); Anion Gap 4 mmol/L (8-16); Blood Urea Nitrogen 32 mg/dL (7-17); Calcium 7.3 mg/dL (8.4-10.2); Carbon Dioxide 31 mmol/L (22-30); Chloride 104 mmol/L (98-107); Estimated CRCL calculation 16 ml/min; Estimated Glomerular Filt Rate 12; Glucose 88 mg/dL (65-105); Magnesium 0.8 mg/dL (1.6-2.3); Phosphorus 3.8 mg/dL (2.5-4.5); Potassium 3.5 mmol/L (3.4-5.0); Sodium 139 mmol/L (137-145)
[2020-09-05 08:04] LABS: CRP 2.3 mg/dL (<1.0); Creatine Kinase 88 U/L (30-135)
[2020-09-05 08:10] LABS: Complement C3 91 mg/dL (88-165)
[2020-09-05] MEDS: MAGNESIUM SULF 2 GM/WATER 50ML 2 GM/50 ML BAG IVPB (08:57)
[2020-09-05] MEDS: PENTOXIFYLLINE 400 MG TABCR PO ×2 (08:59→17:58)
[2020-09-05] MEDS: PREGABALIN (*CRX) 50 MG CAPSULE 200 MG PO ×2 (08:59→18:00)
[2020-09-05] MEDS: CHOLECALCIFEROL 1,000 UNITS TABLET 1000 UNITS PO (08:59)
[2020-09-05] MEDS: CYANOCOBALAMIN 1,000 MCG TABLET 1000 MCG PO (08:59)
[2020-09-05] MEDS: ACIDOPHILUS/BULGARICUS CHEWABLE TABLET 1 TABLET PO ×2 (08:59→17:58)
[2020-09-05] MEDS: PANTOPRAZOLE 40 MG TABLET PO (09:00)
[2020-09-05] MEDS: carvediloL 3.125 MG TABLET PO ×2 (09:01→17:58)
[2020-09-05] MEDS: TAMSULOSIN HCL 0.4 MG CAPSULE PO (09:01)
[2020-09-05] MEDS: SERTRALINE HCL 25 MG TABLET PO (09:01)
[2020-09-05] MEDS: ACETAMINOPHEN 500 MG TABLET 1000 MG PO ×2 (10:23→17:58)
--- NOTE | 2020-09-05 10:57 | PM.PNPUL ---
Progress Note: A&P Assessment and Plan (1) Acute and chronic respiratory failure with hypercapnia: Code(s): J96.22 - Acute and chronic respiratory failure with hypercapnia Status: Acute Assessment and Plan: 08/31 Patient with acute on chronic respiratory failure from COPD. Patient's blood gas in the emergency room was 7.304/66./82.4 on 5 L nasal cannula. This represents an acute on chronic respiratory acidosis. Patient has improved on BiPAP /6 and is now comfortable and requesting to take the BiPAP off. BiPAP has been removed and she is now on 2 L nasal cannula saturations 100%. I will continue nebulized albuterol and ipratropium bromide at this point. Patient does not have active wheezing and I will hold off on inhaled or systemic steroids. I will repeat a chest x-ray in the morning. Patient does qualify for noninvasive ventilation and I will continue her BiPAP 12/6 tonight as she would benefit from noninvasive ventilation for her hypercarbia and her elevated bicarb level. 09/01 Patient with chronic respiratory failure with admit ABG on 5 L NC 7.30/66/82 with elevated CO2 levels. Patient would benefit from noninvasive ventilation due to chronic CO2 retention from COPD. Continue albuterol and ipratroprium nebulized, no wheezes today. She stated the pressure on BiPAP was uncomfortable and I will place her on AVAPS tonight with settings rate 14, TV 400, EPAP5, Inspiratory min 7, inspiratory max 25, 35% FIO2. I will obtain ABG prior to removal of noninvasive. 09/02 Patient wore hospital AVAPS rate 14, TV 400, E pap 5, Expiratory minimum pressure 7, inspiratory maximum pressure 25, 30% FiO2. Patient said she was comfortable on the settings. Blood gas prior to removal demonstrated 7.45/44/101. Patient states that she is breathing better again today and feels 80-85% back to baseline. Continue nebulized albuterol and ipratroprium. Will attempt to obtain home machine in hospital prior to discharge. 09/03 She is now on room air in the day, tolerated AVAPS overnight. ABG today showed 7.47/ 38.8 / 77.8 on 2 L and AVAPS use during sleep. This shows elimination of hypercapnea with nocturnal use. Continue to use at night. 09/04 She has been followed by Akosua Stern [facility] TE[facility] [employer] at [place], and Dr Shi for cardiology. She has not had O2 needs evaluated for several years, and needs to follow up after discharge for O2 re-evaluation, now on RA in the day. 09/05 Patient breathing close to baseline, tolerating home AVAPS-AE machine at night. Overnight Oximetry on 2 L, AVAPS-AE mode demonstrated saturations averaged 91, lowest 78%, saturations less than 88% for 94 minutes, 23% of time. Does not need antibiotics for pneumonia and I DC doxy. I will repeat overnight oximetry on 4 L NC tonight. (2) Pneumonia: Qualifiers: Laterality: unspecified laterality Lung location: unspecified part of lung Pneumonia type: due to unspecified organism Qualified Code(s): J18.9 - Pneumonia, unspecified organism Code(s): J18.9 - Pneumonia, unspecified organism Status: Acute Assessment and Plan: 08/31 Patient with new infiltrate to the right middle lobe on her CT scan and has currently been in the hospital and came from an assisted living facility. She was initially on ceftriaxone and azithromycin, changed to Vanco, Zosyn, Levaquin pending cultures. SARS negative. 09/01 WBC 3.8, feels better, CXR no progression. Continue antibiotics. Patient with vanco sensitive enterococcus in urine. 09/02 WBC 3.1K, feeling better, continue antibiotics. Blood cultures negative, SARS negative. 09/03 Vanco and Zosyn stopped, ceftriaxone restarted along with addition of Doxycycline 09/04 Stopped ceftriaxone with increase in creatinine 3.4, may have acute interstitial nephritis. Stop ipratropium with acute bladder retention. She has a Khan in, and a urology consult has been requested. 09/05 DC doxycyc
[2020-09-05] MEDS: MENTHOL 10% / METHYL SALICYLATE 15% 57 GM TUBE 1 APPLIC TOPICAL (12:04)
[2020-09-05 12:10] LABS: Potassium Urine Random 24.7 meq/L; Sodium Urine Random 24 meq/L
--- NOTE | 2020-09-05 12:19 | PM.CNNEP ---
Assessment and Plan Assessment and plan (1) KONRAD (acute kidney injury): Code(s): N17.9 - Acute kidney failure, unspecified Status: Acute Assessment and Plan: The patient has acute kidney injury. This is gradually worsened since admission. She could have dehydration because she had diarrhea. She does say that she has been eating well though. She could have allergic interstitial nephritis due to antibiotics. This could be a direct toxic effect of the vancomycin she had received from the [facility] whether she actually got are not but I think she got 2 doses. Pneumonia could do this but usually with been occurring while she was sick on admission. Obstruction could occur as well. Will see what the ultrasound shows. Rhabdomyolysis is a possibility as well. Will check a CPK Glomerulonephritis is always a possibility but unlikely in this scenario (2) Diarrhea: Qualifiers: Diarrhea type: unspecified type Qualified Code(s): R19.7 - Diarrhea, unspecified Code(s): R19.7 - Diarrhea, unspecified Status: Acute Assessment and Plan: The patient had diarrhea before. This is improved. She is eating well. (3) Pneumonia: Qualifiers: Laterality: unspecified laterality Lung location: unspecified part of lung Pneumonia type: due to unspecified organism Qualified Code(s): J18.9 - Pneumonia, unspecified organism Code(s): J18.9 - Pneumonia, unspecified organism Status: Acute Assessment and Plan: The patient received antibiotic (4) Urinary retention: Code(s): R33.9 - Retention of urine, unspecified Status: Acute Assessment and Plan: The patient has a Khan catheter. (5) Hypertension: Code(s): I10 - Essential (primary) hypertension Status: Chronic Assessment and Plan: Blood pressure is well controlled (6) Atrial fibrillation: Code(s): I48.91 - Unspecified atrial fibrillation Status: Acute Assessment and Plan: Heart rate is well controlled (7) Anemia: Code(s): D64.9 - Anemia, unspecified Status: Acute Assessment and Plan: Hemoglobin is a bit low. Will check again tomorrow History of Present Illness Reason for Consult Consult date: 09/05/20 Chief Complaint Chief complaint: ACUTE RESPIRATORY FAILURE, PNEUMONIA History of Present Illness Narrative: Cayla Carter is a very pleasant lady who has multiple medical problems including kidney disease stage 2, chronic hypercapnic respiratory failure, chronic pain syndrome, CHF, hypertension, obesity, hypothyroidism, peptic ulcer disease, peripheral arterial disease, history of lung cancer in the past, descending aortic aneurysm with a stent graft, congestive heart, failure, atrial fibrillation. The patient came in the hospital with weakness and confusion. She was evaluated in the emergency room and admitted. She is felt to have pneumonia. Pulmonary consult was requested. She was placed on antibiotics Decadron albuterol and Atrovent. COVID-19 was negative. The patient did have trouble making urine. A straight catheterization was done but eventually needed a Khan catheter. She sees Urology as an outpatient. Her baseline creatinine is normal recently, however her creatinine has risen and fallen over the years. 1.2 in fell to 1.0 the morning after admission. Since then it is risen gradually to its current level of 3.7 so renal consultation was requested. The patient denies any [id number] medications other than what the nurses are giving her. She does not take nonsteroidal anti-inflammatory agents at home. She still has the urinary catheter in. Her urine is yellow. There is no problem with flows. She denies any itching or skin rash. She has no flank pain. She says she was having lots of diarrhea the last few days although today her diarrhea is gone. She has been on some antibiotics Ceftriaxone, azithromycin and vancomycin. Now she is
[2020-09-05 13:16] LABS: Creatine Kinase 96 U/L (30-135)
[2020-09-05 13:25] LABS: Creatinine Urine 78.6 mg/dL; Total Protein Urine Random 23 mg/dL; Ur Ttl Prot Creatinine Ratio 0.29 mg/mg (0-0.20)
--- NOTE | 2020-09-05 13:53 | PM.IMPN ---
Progress Note: A&P Assessment and Plan (1) KONRAD (acute kidney injury): Code(s): N17.9 - Acute kidney failure, unspecified Status: Acute Assessment and Plan: Suspect due to volume depletion but consider related to abx (AIN?). Stop Lasix, Entresto and continue low amount of IV fluids. Monitor fluid status closely. Follow. Nephrology consult. (2) Diarrhea: Qualifiers: Diarrhea type: unspecified type Qualified Code(s): R19.7 - Diarrhea, unspecified Code(s): R19.7 - Diarrhea, unspecified Status: Acute Assessment and Plan: C diff negative. Suspect due to medications. Abx stopped. Diarrhea better. Continue PRN loperamide (3) Acute hypercapnic respiratory failure: Code(s): J96.02 - Acute respiratory failure with hypercapnia Status: Acute Assessment and Plan: Patient had elevated pCO2 of 66 on admission. She was treated with BiPAP. Currently on albuterol. COVID-19 negative. Apnea link 09/02- incomplete; no AHI or RI documented. Guidance Services Coordinator adjusting BiPAP and O2 bleed in. Plan is for home with trilogy unit. Appreciate pulmonary input. Discussed with Pulmonary. APnea to be repeated (4) Pneumonia: Qualifiers: Laterality: unspecified laterality Lung location: unspecified part of lung Pneumonia type: due to unspecified organism Qualified Code(s): J18.9 - Pneumonia, unspecified organism Code(s): J18.9 - Pneumonia, unspecified organism Status: Acute Assessment and Plan: CT chest on admission showing a RML PNA. She was started on Levaquin, Vancomycin and Zosyn. Vanco/Zosyn were discontinued on 09/03 and started on IV Rocephin and oral doxycycline. Levaquin stopped after dose 5 on 09/04. Rocephin and Doxy stopped with last dose also on 09/04. No fevers and WBC normal. Continue to monitor. (5) Encephalopathy acute: Code(s): G93.40 - Encephalopathy, unspecified Status: Acute Assessment and Plan: Most likely metabolic encephalopathy most likely multifactorial related to medication and CO2 retention. Symptoms have resolved (6) Congestive heart failure (CHF): Qualifiers: Heart failure chronicity: chronic Heart failure type: unspecified Qualified Code(s): I50.9 - Heart failure, unspecified Code(s): I50.9 - Heart failure, unspecified Status: Acute Assessment and Plan: No Echo listed. Most likely systolic CHF. Euvolemic. Hold Lasix and Entresto given the elevated Cr. Resume home medications when renal function improves. (7) Peripheral artery disease: Code(s): I73.9 - Peripheral vascular disease, unspecified Status: Chronic Assessment and Plan: Stable. Continue current meds. (8) COPD (chronic obstructive pulmonary disease): Qualifiers: COPD type: unspecified COPD Qualified Code(s): J44.9 - Chronic obstructive pulmonary disease, unspecified Code(s): J44.9 - Chronic obstructive pulmonary disease, unspecified Status: Chronic Assessment and Plan: With acute exacerbation. Continue Albuterol. Not on Anoro inhaler treatment (or equivalent). Pulmonary following. Appreciate their input. (9) Peptic ulcer disease: Code(s): K27.9 - Peptic ulcer, site unspecified, unspecified as acute or chronic, without hemorrhage or perforation Status: Acute Assessment and Plan: Stable. Continue Protonix. (10) Atrial fibrillation: Qualifiers: Atrial fibrillation type: unspecified Qualified Code(s): I48.91 - Unspecified atrial fibrillation Code(s): I48.91 - Unspecified atrial fibrillation Status: Inactive Assessment and Plan: Probably paroxysmal AFib. Continue Coreg; Digoxin and Xarelto on hold given her KONRAD. Subjective Date/time seen: 09/05/20 13:53 Interval history: Date of service 09/05/20 75yo female with a past medical history of lung can
[2020-09-05 16:31] LABS: SARS-CoV-2 RNA PCR Negative
[2020-09-05] MEDS: SIMVASTATIN 20 MG TABLET PO (20:07)
[2020-09-05 20:45] LABS: IFOB Positive Control Positive; Immunochemical Fecal Occult Bl Positive (N)
[2020-09-05] MEDS: SODIUM CHLORIDE 0.9% IV 1,000 ML 50 ML IV CONT (22:45)
[2020-09-06] VITALS (18 sets, daily range): BP systolic 109–137; BP diastolic 70–83; PULSE 60–113; RESP 16–20; TEMP 35.9–36.1; O2SAT 93–100
[2020-09-06] MEDS: ACETAMINOPHEN 500 MG TABLET 1000 MG PO ×4 (01:02→23:24)
[2020-09-06] MEDS: LEVOTHYROXINE SODIUM 125 MCG TABLET PO (05:35)
[2020-09-06 05:47] LABS: Hemoglobin 8.3 g/dL (12.0-15.0); Mean Corpuscular HGB Conc 30.7 g/dl (32-36); Mean Corpuscular Hemoglobin 27.9 pg (26-34); Mean Corpuscular Volume 90.6 fl (80-100); Mean Platelet Volume 11.1 fl (7.4-10.4); Platelet Count Result 181 k/mm3 (150-375); Red Blood Count 2.98 M/mm3 (4.2-5.4); Red Cell Distribution Width 14.7 % (11.5-14.5)
[2020-09-06 06:57] LABS: Albumin Level 2.9 g/dL (3.5-5.1); Anion Gap 5 mmol/L (8-16); Blood Urea Nitrogen 37 mg/dL (7-17); Calcium 7.1 mg/dL (8.4-10.2); Carbon Dioxide 26 mmol/L (22-30); Chloride 107 mmol/L (98-107); Estimated CRCL calculation 15 ml/min; Estimated Glomerular Filt Rate 11; Glucose 83 mg/dL (65-105); Magnesium 1.2 mg/dL (1.6-2.3); Phosphorus 4.4 mg/dL (2.5-4.5); Potassium 3.5 mmol/L (3.4-5.0); Sodium 138 mmol/L (137-145)
[2020-09-06 07:07] LABS: Iron 20 ug/dL (37-170)
[2020-09-06 07:19] LABS: Percent Iron Saturation 6 % (20-50)
[2020-09-06 07:45] LABS: Folic Acid 11.4 ng/mL (2.76->20)
[2020-09-06] MEDS: ALBUTEROL SULFATE NEB 2.5 MG/0.5 ML INH 5 MG INHALATION ×3 (08:49→20:15)
--- NOTE | 2020-09-06 08:49 | PM.PNNEP ---
Progress Note: A&P Assessment and Plan (1) KONRAD (acute kidney injury): Code(s): N17.9 - Acute kidney failure, unspecified Status: Acute Assessment and Plan: The patient has acute kidney injury. This is gradually worsened since admission. Urine electrolytes are not pre renal. Urine eosinophils are pending. Renal ultrasound is negative for acute changes. Considerations for etiology include vancomycin toxicity or allergic interstitial nephritis. Pre renal considerations still may be playing a role because of her diarrhea. She was on diuretics which may decrease the sensitivity of urine electrolytes. Diuretics are on hold. Antibiotics are discontinued. Will check another creatinine tomorrow. (2) Diarrhea: Qualifiers: Diarrhea type: unspecified type Qualified Code(s): R19.7 - Diarrhea, unspecified Code(s): R19.7 - Diarrhea, unspecified Status: Acute Assessment and Plan: The patient had diarrhea before. This is improved. She is eating well. (3) Pneumonia: Qualifiers: Laterality: unspecified laterality Lung location: unspecified part of lung Pneumonia type: due to unspecified organism Qualified Code(s): J18.9 - Pneumonia, unspecified organism Code(s): J18.9 - Pneumonia, unspecified organism Status: Acute Assessment and Plan: The patient received antibiotic (4) Urinary retention: Code(s): R33.9 - Retention of urine, unspecified Status: Acute Assessment and Plan: The patient has a Khan catheter. (5) Hypertension: Code(s): I10 - Essential (primary) hypertension Status: Chronic Assessment and Plan: Blood pressure is well controlled (6) Atrial fibrillation: Code(s): I48.91 - Unspecified atrial fibrillation Status: Acute Assessment and Plan: Heart rate is well controlled (7) Anemia: Code(s): D64.9 - Anemia, unspecified Status: Acute Assessment and Plan: Hemoglobin is a bit low. Subjective Date/time seen: 09/06/20 08:49 Interval history: Patient is awake. Patient is upset. She had a lot of trouble sleeping last night because she had a sleep study. The nurse close the door and she does not like that because she is claustrophobic. She could not find her nurse call button. She denies any chest pain. She gets a little short of breath when she moves from bed to chair. Eating okay Review of Systems Cardiovascular: Cardiovascular: Reports no additional cardiovascular complaints Respiratory: Respiratory: Reports no additional respiratory complaints Gastrointestinal: Gastrointestinal: Reports no additional gastrointestinal complaints Genitourinary: Genitourinary: Reports no additional female genitourinary complaints Exam Narrative: Exam Narrative: WDWN female in NAD skin no rash head ncat lungs clear cor reg no rub abd BS+ nontender and soft ext 1+ edema. Objective Data Vital Signs Vital Signs: Vital Signs - 24 hr 09/05/20 09:01 09/05/20 10:03 09/05/20 10:14 Temperature Pulse Rate 78 96 72 Respiratory Rate 20 20 Blood Pressure Pulse Oximetry 94 09/05/20 12:00 09/05/20 14:00 09/05/20 15:11 Temperature 35.7 C L Pulse Rate 74 70 80 Respiratory Rate 16 20 Blood Pressure 109/75 Pulse Oximetry 93 09/05/20 15:25 09/05/20 16:00 09/05/20 17:58 Temperature Pulse Rate 71 71 90 Respiratory Rate 20 Blood Pressure Pulse Oximetry 09/05/20 20:00 09/05/20 21:15 09/05/20 21:22 Temperature Pulse Rate 85 64 71 Respiratory Rate 20 18 Blood Pressure Pulse Oximetry 93 09/05/20 21:55 09/06/20 00:00 09/06/20 04:00 Temperature 36.3 C L Pulse Rate 88 60 60 Respiratory Rate 18 Blood Pressure 148/70 H Pulse Oximetry 93 09/06/20 06:00 Temperature 35.9 C L Pulse Rate 113 H Respiratory Rate 18 Blood Pressure 115/70 Pulse Oximetry 97 Intake/Output Intake/Output:
--- NOTE | 2020-09-06 10:44 | PM.PNPUL ---
Progress Note: A&P Assessment and Plan (1) Acute and chronic respiratory failure with hypercapnia: Code(s): J96.22 - Acute and chronic respiratory failure with hypercapnia Status: Acute Assessment and Plan: 08/31 Patient with acute on chronic respiratory failure from COPD. Patient's blood gas in the emergency room was 7.304/66./82.4 on 5 L nasal cannula. This represents an acute on chronic respiratory acidosis. Patient has improved on BiPAP /6 and is now comfortable and requesting to take the BiPAP off. BiPAP has been removed and she is now on 2 L nasal cannula saturations 100%. I will continue nebulized albuterol and ipratropium bromide at this point. Patient does not have active wheezing and I will hold off on inhaled or systemic steroids. I will repeat a chest x-ray in the morning. Patient does qualify for noninvasive ventilation and I will continue her BiPAP 12/6 tonight as she would benefit from noninvasive ventilation for her hypercarbia and her elevated bicarb level. 09/01 Patient with chronic respiratory failure with admit ABG on 5 L NC 7.30/66/82 with elevated CO2 levels. Patient would benefit from noninvasive ventilation due to chronic CO2 retention from COPD. Continue albuterol and ipratroprium nebulized, no wheezes today. She stated the pressure on BiPAP was uncomfortable and I will place her on AVAPS tonight with settings rate 14, TV 400, EPAP5, Inspiratory min 7, inspiratory max 25, 35% FIO2. I will obtain ABG prior to removal of noninvasive. 09/02 Patient wore hospital AVAPS rate 14, TV 400, E pap 5, Expiratory minimum pressure 7, inspiratory maximum pressure 25, 30% FiO2. Patient said she was comfortable on the settings. Blood gas prior to removal demonstrated 7.45/44/101. Patient states that she is breathing better again today and feels 80-85% back to baseline. Continue nebulized albuterol and ipratroprium. Will attempt to obtain home machine in hospital prior to discharge. 09/03 She is now on room air in the day, tolerated AVAPS overnight. ABG today showed 7.47/ 38.8 / 77.8 on 2 L and AVAPS use during sleep. This shows elimination of hypercapnea with nocturnal use. Continue to use at night. 09/04 She has been followed by Akosua Stern SR. MERCHANDISE PLANNER at [place], and Dr Shi for cardiology. She has not had O2 needs evaluated for several years, and needs to follow up after discharge for O2 re-evaluation, now on RA in the day. 09/05 Patient breathing close to baseline, tolerating home AVAPS-AE machine at night. Overnight Oximetry on 2 L, AVAPS-AE mode demonstrated saturations averaged 91, lowest 78%, saturations less than 88% for 94 minutes, 23% of time. Does not need antibiotics for pneumonia and I DC doxy. I will repeat overnight oximetry on 4 L NC tonight. 09/06 Bad night but did try to wear home machine. Error in overnight oximetry. Claustophobia and could not get nurse button to work. Remains on RA during day with saturation 97-100%. I will repeat overnight oximetry on home machine on 4 L NC tonight. From pulmonary perspective ready for DC home on: Anoro Ellipta 62.5/25 1 puff Q day (watch for any urinary retention at home) Rescue albuterol 2 puffs PRN Q 4 hours. Home noninvasive ventilation with AVAPS-AE mode. Formal home O2 assessment prior to discharge. (2) Pneumonia: Qualifiers: Laterality: unspecified laterality Lung location: unspecified part of lung Pneumonia type: due to unspecified organism Qualified Code(s): J18.9 - Pneumonia, unspecified organism Code(s): J18.9 - Pneumonia, unspecified organism Status: Acute Assessment and Plan: 08/31 Patient with new infiltrate to the right middle lobe on her CT scan and has currently been in the hospital and came from an assisted living facility. She was initially on ceftriaxone and azithromycin, changed to Vanco, Zosyn, Levaquin pending cultures. SARS negative. 09/01
--- NOTE | 2020-09-06 11:37 | WPDGICN ---
Assessment and Plan Assessment and plan (1) Occult blood in stools: Code(s): R19.5 - Other fecal abnormalities Status: Acute Assessment and Plan: Patient confirmed to have occult blood in stools. The differential for this includes are known hemorrhoids and rectal bleeding. She does have a history of peptic ulcer disease documented gastric ulcer in October of 2019. Other lesions cannot be excluded. Plan is to evaluate more thoroughly with colonoscopy an EGD after preparation. Anticoagulation when be held in until it is certain that it is safe to resume. (2) Rectal bleeding: Code(s): K62.5 - Hemorrhage of anus and rectum Status: Acute Assessment and Plan: Patient intermittently will notice bright red blood per rectum. Etiology for this is unclear. Hemorrhoids have been presumed otherwise. Lower GI source cannot be excluded. (3) Peptic ulcer disease: Code(s): K27.9 - Peptic ulcer, site unspecified, unspecified as acute or chronic, without hemorrhage or perforation Status: Acute Assessment and Plan: Gastric ulcer identified in October of 2019. Plan is for follow-up EGD at this time to document healing. Also to see if this accounts for her chronic anemia and occult blood loss. Anemia may also be attributed to her kidney disease. (4) Atrial fibrillation: Code(s): I48.91 - Unspecified atrial fibrillation Status: Acute Assessment and Plan: Patient previously on anticoagulation. This will be held given her anemia occult blood in stools and rectal bleeding. Endoscopy hopefully determine safety of restarting anticoagulation. (5) COPD (chronic obstructive pulmonary disease): Qualifiers: COPD type: unspecified COPD Qualified Code(s): J44.9 - Chronic obstructive pulmonary disease, unspecified Code(s): J44.9 - Chronic obstructive pulmonary disease, unspecified Status: Chronic (6) Congestive heart failure (CHF): Qualifiers: Heart failure type: unspecified Heart failure chronicity: chronic Qualified Code(s): I50.9 - Heart failure, unspecified Code(s): I50.9 - Heart failure, unspecified Status: Acute (7) Pneumonia: Qualifiers: Laterality: unspecified laterality Lung location: unspecified part of lung Pneumonia type: due to unspecified organism Qualified Code(s): J18.9 - Pneumonia, unspecified organism Code(s): J18.9 - Pneumonia, unspecified organism Status: Acute (8) KONRAD (acute kidney injury): Code(s): N17.9 - Acute kidney failure, unspecified Status: Acute (9) Diarrhea: Qualifiers: Diarrhea type: unspecified type Qualified Code(s): R19.7 - Diarrhea, unspecified Code(s): R19.7 - Diarrhea, unspecified Status: Acute Assessment and Plan: Diarrhea noted at time of admission is now resolved. GI Consult Note Consult date/time: 09/06/20 11:37 HPI: Valorie Harris is a 75 year old female seen in evaluation at the request of the hospitalist service. Patient was found to have chronic anemia with occult blood in stool. Patient has multiple medical problems including history of COPD, congestive heart failure, confined to [facility] because of peripheral neuropathy. She states she has intermittent bright red blood per rectum. Was hospitalized at [facility] in August where she was found to have GI bleeding. as an outpatient underwent endoscopy by Dr. Ulloa in October , this revealed a gastric ulcer. Patient apparently became somewhat confused, short of breath ,diarrhea was admitted to the hospital August 30. She was since developed rather significant acute renal insufficiency. She was found to have pneumonia. As stated she has an underlying history of COPD and congestive heart failure. And this is been improving when with the pulmonary service. Patient now is started on BiPAP mask for sleep apnea. Her hemoglobin is noted to remain low
--- NOTE | 2020-09-06 11:56 | PM.IMPN ---
Progress Note: A&P Assessment and Plan (1) KONRAD (acute kidney injury): Code(s): N17.9 - Acute kidney failure, unspecified Status: Acute Assessment and Plan: Suspect due to volume depletion but consider related to abx (AIN?). Renal US no acute findings. Complement normal. Lasix, Entresto held. Continue low amount of IV fluids. Monitor fluid status closely. Follow. Nephrology consult. (2) Diarrhea: Qualifiers: Diarrhea type: unspecified type Qualified Code(s): R19.7 - Diarrhea, unspecified Code(s): R19.7 - Diarrhea, unspecified Status: Acute Assessment and Plan: C diff negative. Suspect due to medications. Abx stopped. Diarrhea better. Continue PRN loperamide (3) Acute hypercapnic respiratory failure: Code(s): J96.02 - Acute respiratory failure with hypercapnia Status: Acute Assessment and Plan: Patient had elevated pCO2 of 66 on admission. She was treated with BiPAP. Currently on albuterol. COVID-19 negative. Apnea link 09/02- incomplete; no AHI or RI documented. 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 Repeat apnea link noted with RI and AHI 26 on room air. Plan is for home with trilogy unit. Appreciate pulmonary input. (4) Pneumonia: Qualifiers: Laterality: unspecified laterality Lung location: unspecified part of lung Pneumonia type: due to unspecified organism Qualified Code(s): J18.9 - Pneumonia, unspecified organism Code(s): J18.9 - Pneumonia, unspecified organism Status: Acute Assessment and Plan: CT chest on admission showing a RML PNA. She was started on Levaquin, Vancomycin and Zosyn. Vanco/Zosyn were discontinued on 09/03 and started on IV Rocephin and oral doxycycline. Levaquin stopped after dose 5 on 09/04. Rocephin and Doxy stopped with last dose also on 09/04. No fevers and WBC normal. Continue to monitor. (5) Encephalopathy acute: Code(s): G93.40 - Encephalopathy, unspecified Status: Acute Assessment and Plan: Most likely metabolic encephalopathy most likely multifactorial related to medication and CO2 retention. Symptoms have resolved (6) Congestive heart failure (CHF): Qualifiers: Heart failure chronicity: chronic Heart failure type: unspecified Qualified Code(s): I50.9 - Heart failure, unspecified Code(s): I50.9 - Heart failure, unspecified Status: Acute Assessment and Plan: No Echo listed. Most likely systolic CHF. Euvolemic. Lasix and Entresto held given the elevated Cr. Resume home medications when renal function improves. (7) Peripheral artery disease: Code(s): I73.9 - Peripheral vascular disease, unspecified Status: Chronic Assessment and Plan: Stable. Continue current meds. (8) COPD (chronic obstructive pulmonary disease): Qualifiers: COPD type: unspecified COPD Qualified Code(s): J44.9 - Chronic obstructive pulmonary disease, unspecified Code(s): J44.9 - Chronic obstructive pulmonary disease, unspecified Status: Chronic Assessment and Plan: With acute exacerbation. Continue Albuterol. Not on Anoro inhaler treatment (or equivalent). Pulmonary following. Appreciate their input. Will add Spiriva. (9) Peptic ulcer disease: Code(s): K27.9 - Peptic ulcer, site unspecified, unspecified as acute or chronic, without hemorrhage or perforation Status: Acute Assessment and Plan: Guaiac positive stools but could be from hemorrhoids. Will need to go back on Xarelto at some point. GI consult. Continue Protonix. (10) Atrial fibrillation: Qualifiers: Atrial fibrillation type: unspecified Qualified Code(s): I48.91 - Unspecified atrial fibrillation Code(s): I48.91 - Unspecified atrial fibrillation Status: Inactive Assessment and Plan: Probably paroxysmal AFib. Continue Coreg; Digoxin an
[2020-09-06] MEDS: PREGABALIN (*CRX) 50 MG CAPSULE 200 MG PO ×2 (12:02→17:01)
[2020-09-06] MEDS: ACIDOPHILUS/BULGARICUS CHEWABLE TABLET 1 TABLET PO ×2 (12:03→17:01)
[2020-09-06] MEDS: CHOLECALCIFEROL 1,000 UNITS TABLET 1000 UNITS PO (12:03)
[2020-09-06] MEDS: CYANOCOBALAMIN 1,000 MCG TABLET 1000 MCG PO (12:03)
[2020-09-06] MEDS: PANTOPRAZOLE 40 MG TABLET PO (12:03)
[2020-09-06] MEDS: PENTOXIFYLLINE 400 MG TABCR PO ×2 (12:03→17:01)
[2020-09-06] MEDS: MAGNESIUM SULF 2 GM/WATER 50ML 2 GM/50 ML BAG IVPB (12:03)
[2020-09-06] MEDS: SERTRALINE HCL 25 MG TABLET PO (12:03)
[2020-09-06] MEDS: carvediloL 3.125 MG TABLET PO ×2 (12:04→17:04)
[2020-09-06] MEDS: PEG (High)/E-LYTE SOLN 4,000 ML BTL 4000 ML PO (12:04)
[2020-09-06] MEDS: TAMSULOSIN HCL 0.4 MG CAPSULE PO (12:04)
[2020-09-06 14:06] LABS: Total Protein Urine Random 16 mg/dL; Ur Ttl Prot Creatinine Ratio 0.22 mg/mg (0-0.20)
[2020-09-06 14:09] LABS: Sodium Urine Random 22 meq/L
[2020-09-06] MEDS: SIMVASTATIN 20 MG TABLET PO (20:41)
[2020-09-07] VITALS (21 sets, daily range): BP systolic 91–126; BP diastolic 38–58; PULSE 63–92; RESP 15–26; TEMP 35.8–36.7; O2SAT 89–97
[2020-09-07] MEDS: ALBUTEROL SULFATE NEB 2.5 MG/0.5 ML INH 5 MG INHALATION ×3 (02:19→20:06)
--- NOTE | 2020-09-07 03:23 | PCRCNOTE ---
Apnea link was not performed last night (09/06/20) due to patient getting bowel prepped for colonoscopy today. Apnea link will be done tonight (09/07/20).
[2020-09-07] MEDS: SODIUM CHLORIDE 0.9% IV 1,000 ML 50 ML IV CONT (03:51)
[2020-09-07] MEDS: LEVOTHYROXINE SODIUM 125 MCG TABLET PO (05:47)
[2020-09-07 05:54] LABS: Hematocrit 27.2 % (37.0-47.0); Hemoglobin 8.5 g/dL (12.0-15.0); Mean Corpuscular HGB Conc 31.3 g/dl (32-36); Mean Corpuscular Hemoglobin 28.6 pg (26-34); Mean Corpuscular Volume 91.6 fl (80-100); Mean Platelet Volume 10.8 fl (7.4-10.4); Platelet Count Result 174 k/mm3 (150-375); Red Blood Count 2.97 M/mm3 (4.2-5.4); Red Cell Distribution Width 14.6 % (11.5-14.5)
[2020-09-07 06:06] LABS: Albumin Level 3.2 g/dL (3.5-5.1); Anion Gap 8 mmol/L (8-16); Blood Urea Nitrogen 34 mg/dL (7-17); Carbon Dioxide 27 mmol/L (22-30); Chloride 101 mmol/L (98-107); Estimated CRCL calculation 16 ml/min; Estimated Glomerular Filt Rate 12; Glucose 80 mg/dL (65-105); Magnesium 1.4 mg/dL (1.6-2.3); Phosphorus 5.3 mg/dL (2.5-4.5); Potassium 3.7 mmol/L (3.4-5.0); Sodium 136 mmol/L (137-145)
[2020-09-07] MEDS: LACTATED RINGERS 1,000 ML 100 ML IV CONT (08:03)
--- NOTE | 2020-09-07 08:07 | SUR.PREOP ---
0757 PATIENT COMPLAINS OF TROUBLE BREATHING, ASKED FOR US TO REMOVE HER MASK, MASK REMOVED, HOB ELEVATED AT APPROXAMATELY 35 % PER PATIENT'S REQUEST, PULSE OX 89 % ON ROOM AIR, SPOKE WITH DR. ZHU, ORDERS RECEIVED FOR 2 AT 2 L. 0800 PATIENT PULSE OX AT 96 % ON 2L N/C.
--- NOTE | 2020-09-07 08:13 | SUR.PREOP ---
0805 PATIENT'S RESTING, STATES BREATHING BETTER, PULSE OX 96% on 2 L per nasal cannula 0815 patient turned on left side, patient updated on procedure time, call hudson in reach.
--- NOTE | 2020-09-07 09:04 | SUR.PREOP ---
0902 ASSISTED PT IN TURNING ON PATIENT'S RIGHT SIDE, DR. ZHU IN SEEING PATIENT.
--- NOTE | 2020-09-07 09:05 | SUR.PREOP ---
0905 UPPER AND LOWER PARTIAL/DENTURES PLACED IN LABELED DENTURE CUP AND AT NURSE'S DESK
--- NOTE | 2020-09-07 09:06 | WPDANESEPPF ---
Anes - Initial Pre Proc Eval Procedure: Operation Date: 09/07/20 09:30 Proposed Procedures p Esophagogastroduodenoscopy & Colonoscopy - Igor Matt MD Date/Time: 09/07/20 09:06 Surgeon: Madi Mae MD Pre Op Diagnosis: ACUTE RESPIRATORY FAILURE, PNEUMONIA Patient Data Age: 75 Gender: F Height: 5 ft 6 in Weight: 120.4 kg Last Vital Signs Temp 96.5 F L 09/07/20 08:06 Pulse 66 09/07/20 08:06 Resp 18 09/07/20 08:06 BP 112/54 L 09/07/20 08:06 Pulse Ox 89 L 09/07/20 08:06 Allergies Allergy/AdvReac Type Severity Reaction Status Date / Time No Known Allergies Allergy Verified 08/30/20 13:27 Home Medications Medication Instructions Recorded Confirmed Type Entresto 1 tablet PO BID 10/22/19 08/30/20 History carvedilol [Coreg] 3.125 mg PO BID 10/22/19 08/30/20 History digoxin 0.125 mcg PO QAM 10/22/19 08/30/20 History furosemide 80 mg PO DAILY 10/22/19 08/30/20 History pantoprazole [Protonix] 40 mg PO QAM 10/22/19 08/30/20 History pentoxifylline 400 mg PO BID 10/22/19 08/30/20 History pregabalin [Lyrica] 200 mg PO BID 10/22/19 08/30/20 History sertraline [Zoloft] 25 mg PO QAM 10/22/19 08/30/20 History simvastatin [Zocor] 20 mg PO HS 10/22/19 08/30/20 History tramadol [Ultram] 50 mg PO TID 10/22/19 08/30/20 History Anoro Ellipta 1 inh INHALATION DAILY 08/10/20 08/30/20 History B12 Active 1,000 mcg PO DAILY 08/10/20 08/30/20 History Digestive Advantage Probiotic 2 cap PO BID 08/10/20 08/30/20 History cholecalciferol (vitamin D3) 25 mcg PO DAILY 08/10/20 08/30/20 History [Vitamin D3] levothyroxine [Synthroid] 125 mcg PO DAILY 08/10/20 08/30/20 History Xarelto 20 mg PO QPM 08/24/20 08/30/20 History potassium chloride 20 meq PO DAILY 08/24/20 08/30/20 History Laboratory Tests 09/04/20 09/06/20 09/07/20 17:25 13:27 05:42 WBC 8.0 K/mm3 K/mm3 (4.5-10.0) RBC 2.97 M/mm3 L M/mm3 (4.2-5.4) Hgb 8.5 g/dL L g/dL (12.0-15.0) Hct 27.2 % L % (37.0-47.0) MCV 91.6 fl fl (80-100) MCH 28.6 pg pg (26-34) MCHC 31.3 g/dl L g/dl (32-36) RDW 14.6 % H % (11.5-14.5) Plt Count 174 k/mm3 k/mm3 (150-375) MPV 10.8 fl H fl (7.4-10.4) Sodium Potassium Chloride Carbon Dioxide Anion Gap BUN Creatinine Estim Creat Clear Calc Estimated GFR Glucose Calcium Phosphorus Magnesium Albumin Urine Eosinophils see below U Random Total Protein 16 mg/dL mg/dL Ur Random Sodium 22 meq/L meq/L Urine Creatinine 74.0 mg/dL mg/dL Protein/Creat Ratio 2 0.22 mg/mg H mg/mg (0-0.20) 09/07/20 05:42 WBC RBC Hgb Hct MCV MCH MCHC RDW Plt Count MPV Sodium 136 mmol/L L mmol/L (137-145) Potassium 3.7 mmol/L mmol/L (3.4-5.0) Chloride 101 mmol/L mmol/L (98-107) Carbon Dioxide 27 mmol/L mmol/L (22-30) Anion Gap 8 mmol/L mmol/L (8-16) BUN 34 mg/dL H mg/dL (7-17) Creatinine 3.80 mg/dL H mg/dL (0.7-1.0) Estim Creat Clear Calc 16 ml/min ml/min Estimated GFR 12 L (59 - ) Glucose 80 mg/dL mg/dL (65-105) Calcium 7.0 mg/dL L mg/dL (8.4-10.2) Phosphorus 5.3 mg/dL H mg/dL (2.5-4.5) Magnesium 1.4 mg/dL L mg/dL (1.6-2.3) Albumin 3.2 g/dL L g/dL (3.5-5.1) Urine Eosinophils U Random Total Protein Ur Random Sodium Urine Creatinine Protein/Creat Ratio 2 Patient hx anesthesia problems: none Family hx anesthesia problems: none [facility] Past Medical History Medical History Arterial stent thrombosis Left leg Atrial fibrillation Taken off of anticoagulation due to her peptic
--- NOTE | 2020-09-07 09:08 | PM.IMPN ---
Progress Note: A&P Assessment and Plan (1) KONRAD (acute kidney injury): Code(s): N17.9 - Acute kidney failure, unspecified Status: Acute Assessment and Plan: Suspect due to volume depletion but consider related to abx (AIN?). Urine eos negative. Renal US no acute findings. Complement normal. Lasix, Entresto held. Cr better today. Continue low amount of IV fluids. Monitor fluid status closely. Continue to follow. Nephrology consult. (2) Diarrhea: Qualifiers: Diarrhea type: unspecified type Qualified Code(s): R19.7 - Diarrhea, unspecified Code(s): R19.7 - Diarrhea, unspecified Status: Acute Assessment and Plan: C diff negative. Suspect due to medications. Abx stopped. Diarrhea better. Continue PRN loperamide (3) Acute hypercapnic respiratory failure: Code(s): J96.02 - Acute respiratory failure with hypercapnia Status: Acute Assessment and Plan: Patient had elevated pCO2 of 66 on admission. She was treated with BiPAP. Currently on albuterol. COVID-19 negative. Apnea link 09/02- incomplete; no AHI or RI documented. [employer] adjusting BiPAP and O2 bleed in. Repeat apnea link 09/06 noted with RI and AHI 26 on room air. Appreciate pulmonary input. (4) Pneumonia: Qualifiers: Laterality: unspecified laterality Lung location: unspecified part of lung Pneumonia type: due to unspecified organism Qualified Code(s): J18.9 - Pneumonia, unspecified organism Code(s): J18.9 - Pneumonia, unspecified organism Status: Acute Assessment and Plan: CT chest on admission showing a RML PNA. She was started on Levaquin, Vancomycin and Zosyn. Vanco/Zosyn were discontinued on 09/03 and started on IV Rocephin and oral doxycycline. Levaquin stopped after dose 5 on 09/04. Rocephin and Doxy stopped with last dose also on 09/04. No abx since 09/04/20. No fevers and WBC remains normal. Continue to monitor. (5) Encephalopathy acute: Code(s): G93.40 - Encephalopathy, unspecified Status: Acute Assessment and Plan: Most likely metabolic encephalopathy felt to be multifactorial related to medication and CO2 retention. Symptoms have resolved (6) Congestive heart failure (CHF): Qualifiers: Heart failure chronicity: chronic Heart failure type: unspecified Qualified Code(s): I50.9 - Heart failure, unspecified Code(s): I50.9 - Heart failure, unspecified Status: Chronic Assessment and Plan: No Echo listed. Most likely systolic CHF. Euvolemic. Lasix and Entresto held given the elevated Cr. Resume home medications when renal function improves. (7) Peripheral artery disease: Code(s): I73.9 - Peripheral vascular disease, unspecified Status: Chronic Assessment and Plan: Stable. Continue current meds. (8) COPD (chronic obstructive pulmonary disease): Qualifiers: COPD type: unspecified COPD Qualified Code(s): J44.9 - Chronic obstructive pulmonary disease, unspecified Code(s): J44.9 - Chronic obstructive pulmonary disease, unspecified Status: Chronic Assessment and Plan: With acute exacerbation. Continue Albuterol. On Anoro inhaler treatment at home. Pulmonary following. Appreciate their input. Katlyn added. (9) Peptic ulcer disease: Code(s): K27.9 - Peptic ulcer, site unspecified, unspecified as acute or chronic, without hemorrhage or perforation Status: Acute Assessment and Plan: Guaiac positive stools. EGD showing antral erosions. Colonoscopy showing multiple large polyps some too large to remove; biopsy taken. Hemorhoids noted with stigmata of bleeding which could explain the positive guaiac. Will need to go back on Xarelto at some point but will wait since recent biopsy and polypectomies. Appreciate GI input. Nicole consulted for discussion about partial colectomy but patient not sure
[2020-09-07] MEDS: BENZOCAINE (*SP) 60 ML SPRAY CAN (HURRICAINE) 1 SPRAY MUCOUS MEM (09:47)
--- NOTE | 2020-09-07 09:58 | SUR.OPER ---
0952-EGD COMPLETED, 58-COLONOSCOPY STARTED
--- NOTE | 2020-09-07 10:33 | SUR.OPER ---
TATOOING DONE TO CECAL POLYP, ASCENDING, AND TRANSVERSE POLYP SITE. 1ML EACH SITE. LOT #[id number] EXP
[2020-09-07] MEDS: SERTRALINE HCL 25 MG TABLET PO (11:41)
[2020-09-07] MEDS: CYANOCOBALAMIN 1,000 MCG TABLET 1000 MCG PO (11:41)
[2020-09-07] MEDS: ACIDOPHILUS/BULGARICUS CHEWABLE TABLET 1 TABLET PO ×2 (11:41→17:51)
[2020-09-07] MEDS: PANTOPRAZOLE 40 MG TABLET PO (11:41)
[2020-09-07] MEDS: PREGABALIN (*CRX) 50 MG CAPSULE 200 MG PO ×2 (11:41→17:51)
[2020-09-07] MEDS: TAMSULOSIN HCL 0.4 MG CAPSULE PO (11:41)
[2020-09-07] MEDS: CHOLECALCIFEROL 1,000 UNITS TABLET 1000 UNITS PO (11:42)
[2020-09-07] MEDS: MAGNESIUM SULF 2 GM/WATER 50ML 2 GM/50 ML BAG IVPB (11:42)
[2020-09-07] MEDS: PENTOXIFYLLINE 400 MG TABCR PO ×2 (11:42→17:51)
[2020-09-07] MEDS: carvediloL 3.125 MG TABLET PO ×2 (11:43→17:51)
--- NOTE | 2020-09-07 12:59 | PM.PNPUL ---
Progress Note: A&P Assessment and Plan (1) Acute and chronic respiratory failure with hypercapnia: Code(s): J96.22 - Acute and chronic respiratory failure with hypercapnia Status: Acute Assessment and Plan: 08/31 Patient with acute on chronic respiratory failure from COPD. Patient's blood gas in the emergency room was 7.304/66./82.4 on 5 L nasal cannula. This represents an acute on chronic respiratory acidosis. Patient has improved on BiPAP /6 and is now comfortable and requesting to take the BiPAP off. BiPAP has been removed and she is now on 2 L nasal cannula saturations 100%. I will continue nebulized albuterol and ipratropium bromide at this point. Patient does not have active wheezing and I will hold off on inhaled or systemic steroids. I will repeat a chest x-ray in the morning. Patient does qualify for noninvasive ventilation and I will continue her BiPAP 12/6 tonight as she would benefit from noninvasive ventilation for her hypercarbia and her elevated bicarb level. 09/01 Patient with chronic respiratory failure with admit ABG on 5 L NC 7.30/66/82 with elevated CO2 levels. Patient would benefit from noninvasive ventilation due to chronic CO2 retention from COPD. Continue albuterol and ipratroprium nebulized, no wheezes today. She stated the pressure on BiPAP was uncomfortable and I will place her on AVAPS tonight with settings rate 14, TV 400, EPAP5, Inspiratory min 7, inspiratory max 25, 35% FIO2. I will obtain ABG prior to removal of noninvasive. 09/02 Patient wore hospital AVAPS rate 14, TV 400, E pap 5, Expiratory minimum pressure 7, inspiratory maximum pressure 25, 30% FiO2. Patient said she was comfortable on the settings. Blood gas prior to removal demonstrated 7.45/44/101. Patient states that she is breathing better again today and feels 80-85% back to baseline. Continue nebulized albuterol and ipratroprium. Will attempt to obtain home machine in hospital prior to discharge. 09/03 She is now on room air in the day, tolerated AVAPS overnight. ABG today showed 7.47/ 38.8 / 77.8 on 2 L and AVAPS use during sleep. This shows elimination of hypercapnea with nocturnal use. Continue to use at night. 09/04 She has been followed by [facility] SPECIALIST at [facility], and Dr Shi for cardiology. She has not had O2 needs evaluated for several years, and needs to follow up after discharge for O2 re-evaluation, now on RA in the day. 09/05 Patient breathing close to baseline, tolerating home AVAPS-AE machine at night. Overnight Oximetry on 2 L, AVAPS-AE mode demonstrated saturations averaged 91, lowest 78%, saturations less than 88% for 94 minutes, 23% of time. Does not need antibiotics for pneumonia and I DC doxy. I will repeat overnight oximetry on 4 L NC tonight. 09/06 Bad night but did try to wear home machine. Error in overnight oximetry. Claustophobia and could not get nurse button to work. Remains on RA during day with saturation 97-100%. I will repeat overnight oximetry on home machine on 4 L NC tonight. 09/07 Did not wear AVAPS-AE last night as was getting colonoscopy prep. Will weaar tonight on 4 L and will repeart apnea link to assess oxygenation. Ready for discharge from my perspective once adequate oxygenation at night. From pulmonary perspective ready for DC home on: Anoro Ellipta 62.5 1 puff Q day (watch for any urinary retention at home) Rescue albuterol 2 puffs PRN Q 4 hours. Home noninvasive ventilation with AVAPS-AE mode. Formal home O2 assessment prior to discharge. (2) Pneumonia: Qualifiers: Laterality: unspecified laterality Lung location: unspecified part of lung Pneumonia type: due to unspecified organism Qualified Code(s): J18.9 - Pneumonia, unspecified organism Code(s): J18.9 - Pneumonia, unspecified organism Status: Acute Assessment and Plan: 08/31 Patient with new infiltrate to the right middle lo
--- NOTE | 2020-09-07 15:23 | PM.CNGS ---
Assessment and Plan Assessment and plan (1) Colon polyps: Code(s): K63.5 - Polyp of colon Status: Acute Assessment and Plan: Patient underwent colonoscopy today, which revealed multiple benign-appearing large colon polyps in the cecum, proximal ascending colon, and distal transverse colon that were unable to be excised endoscopically. Biopsies were taken and are pending. I discussed treatment options with the patient regarding non-urgent surgical intervention. The patient is very reluctant to have any surgery, for good reason. She is a high risk surgical candidate due to her multiple co-morbidities, anticoagulation, age, etc. She is also a DNR and voiced to me that she would not want to be on a ventilator, even for a short amount of time post-operatively, which could be a possibility for her given her respiratory status and history. I discussed the patient's case and plan of care with Dr. Pollard. For now, we will monitor the patient, await the biopsy results, and allow her to recover from her acute illness. Once she is medically stable, it is okay from our standpoint to discharge the patient when okay with all other services. Dr. Pollard will then plan to see her in our office in 1 month and can discuss options again at that time. Thank you for allowing us to see the patient in consultation. (2) Rectal bleeding: Code(s): K62.5 - Hemorrhage of anus and rectum Status: Acute Assessment and Plan: + stool occult. GI following. This is the reason for her colonoscopy today. Colonoscopy showed stigmata of bleeding at internal hemorrhoids, large benign-appearing colonic polyps as noted above, and diverticulosis without evidence of bleeding. (3) Anemia: Code(s): D64.9 - Anemia, unspecified Status: Acute (4) Congestive heart failure (CHF): Qualifiers: Heart failure type: unspecified Heart failure chronicity: chronic Qualified Code(s): I50.9 - Heart failure, unspecified Code(s): I50.9 - Heart failure, unspecified Status: Acute Assessment and Plan: Increases risks for surgery. (5) CAP (community acquired pneumonia): Code(s): J18.9 - Pneumonia, unspecified organism Status: Acute Assessment and Plan: Continue management per pulmonology and hospitalist. (6) COPD (chronic obstructive pulmonary disease): Qualifiers: COPD type: unspecified COPD Qualified Code(s): J44.9 - Chronic obstructive pulmonary disease, unspecified Code(s): J44.9 - Chronic obstructive pulmonary disease, unspecified Status: Chronic Assessment and Plan: Increases risks for surgery. Now using Triology at night. (7) Acute and chronic respiratory failure with hypercapnia: Code(s): J96.22 - Acute and chronic respiratory failure with hypercapnia Status: Acute Assessment and Plan: Also with history of lung cancer and right upper lobectomy in 2006. Increases risks for surgery. (8) Atrial fibrillation: Code(s): I48.91 - Unspecified atrial fibrillation Status: Acute Assessment and Plan: On chronic anticoagulation. Increases risks for surgery. (9) Anticoagulant long-term use: Code(s): Z79.01 - rn long term care (current) use of anticoagulants Status: Acute Assessment and Plan: No plans for surgery during this hospitalization, so it is also okay to restart anticoagulation from our standpoint. (10) KONRAD (acute kidney injury): Code(s): N17.9 - Acute kidney failure, unspecified Status: Acute Assessment and Plan: Creatinine 3.8 today. [place] to be related to volume depletion. Nephrology consulted. (11) Hypertension: Code(s): I10 - Essential (primary) hypertension Status: Chronic (12) Peripheral artery disease: Code(s): I73.9 - Peripheral vascular disease, unspecified Status: Chronic (13) Hypothyroidism: Qualifiers: Hypothyroidism type: acquired Qualified Code(s
--- NOTE | 2020-09-07 16:34 | PCPTNOTE ---
The patient treatment was not able to be completed on 09/07/20 due to Patient not being available. Patient agreeable to participate, however MD arrived to speak to patient. As MD left room, patient's dinner tray arrived. Patient eating dinner and requested therapy to come back later. Will plan to continue treatment per plan of care. Sylvie De Leon, EDUCATION REP
--- NOTE | 2020-09-07 17:01 | PM.PNGS ---
Progress Note: A&P Assessment and Plan (1) Colon polyps: Code(s): K63.5 - Polyp of colon Status: Chronic Assessment and Plan: patient has multiple benign-appearing polyps which, ideally, should be resected. With the patient's acute medical problems ( see list below and HPI) she is definitely not a candidate for colon resection at this point in time. The patient is not sure she washes to have colon resection as she quite reasonably understands her surgical risks are very high. Additionally, we are not doing elective surgery in which the patient would be required to stay in the hospital several days after surgery due to the COVID-19 pandemic. I explained all this to the patient. I think she should continue her recovery from the current illness of pneumonia and acute kidney injury. She can return to her chronic anticoagulant use from my standpoint. I will see her in the office in approximately 4 weeks to see if she is in better shape to possibly undergo an operation. While these polyps do carry a risk of developing colon cancer, with the patient's several recent admissions and poor medical condition, it is difficult to say they pose a significant risk to shorten her life expectancy. Continue management of her current problems and when discharged I will be happy to reassess her in the office and discuss further whether colon surgery is an option. (2) Occult blood in stools: Code(s): R19.5 - Other fecal abnormalities Status: Chronic (3) KONRAD (acute kidney injury): Code(s): N17.9 - Acute kidney failure, unspecified Status: Acute (4) Anticoagulant long-term use: Code(s): Z79.01 - USP (current) use of anticoagulants Status: Chronic (5) Acute and chronic respiratory failure with hypercapnia: Code(s): J96.22 - Acute and chronic respiratory failure with hypercapnia Status: Chronic (6) Anemia: Code(s): D64.9 - Anemia, unspecified Status: Chronic (7) Congestive heart failure (CHF): Qualifiers: Heart failure type: unspecified Heart failure chronicity: chronic Qualified Code(s): I50.9 - Heart failure, unspecified Code(s): I50.9 - Heart failure, unspecified Status: Chronic (8) COPD (chronic obstructive pulmonary disease): Qualifiers: COPD type: unspecified COPD Qualified Code(s): J44.9 - Chronic obstructive pulmonary disease, unspecified Code(s): J44.9 - Chronic obstructive pulmonary disease, unspecified Status: Chronic Subjective Subjective Date/Time Seen: 09/07/20 17:01 Patient is a 75-year-old woman who resides in assisted living at [facility]. She has numerous medical problems and has had several recent admissions. She was in overnight right before [place] with rectal bleeding thought to be due to hemorrhoids. Plan was to have outpatient elective colonoscopy per Dr. getachew martines. She was on Xarelto for chronic paroxysmal atrial fibrillation. This was held for 4 days and then restarted. She made it through new years but then on August 24, 2020 was admitted for unresponsiveness at [facility]. She was brought to the emergency room confused and was found to have hypercapnic encephalopathy as the cause of her admission. This reversed fairly quickly and she was discharged in 48 hours on 08/26/2020. Four days later, however, she came back to the emergency room with shortness of breath and confusion again. In this instance she was also hypercapnic and had evidence on imaging of a right middle lobe pneumonia. She was admitted for antibiotics and other care. The patient's list of chronic medical problems is quite long and includes COPD, chronic home oxygen of 2 L, chronic hypercapnic respiratory failure, congestive heart failure, paroxysmal atrial fibrillation, morbid obesity, history of descending aortic aneurysm status post endovascular repair, peripheral vascular disease with a left leg clotted drew
[2020-09-07] MEDS: FERROUS SULFATE 324 MG TABLET PO (20:22)
[2020-09-07] MEDS: SIMVASTATIN 20 MG TABLET PO (20:22)
[2020-09-08] VITALS (18 sets, daily range): BP systolic 112–125; BP diastolic 45–76; PULSE 56–84; RESP 18–20; TEMP 36.1–36.2; O2SAT 85–99
[2020-09-08 05:39] LABS: Hematocrit 25.8 % (37.0-47.0); Hemoglobin 7.9 g/dL (12.0-15.0); Mean Corpuscular HGB Conc 30.6 g/dl (32-36); Mean Corpuscular Hemoglobin 27.8 pg (26-34); Mean Corpuscular Volume 90.8 fl (80-100); Mean Platelet Volume 10.9 fl (7.4-10.4); Platelet Count Result 158 k/mm3 (150-375); Red Blood Count 2.84 M/mm3 (4.2-5.4); Red Cell Distribution Width 14.6 % (11.5-14.5)
[2020-09-08 05:55] LABS: Anion Gap 5 mmol/L (8-16); Blood Urea Nitrogen 36 mg/dL (7-17); Calcium 6.8 mg/dL (8.4-10.2); Carbon Dioxide 28 mmol/L (22-30); Chloride 103 mmol/L (98-107); Estimated CRCL calculation 16 ml/min; Estimated Glomerular Filt Rate 12; Glucose 87 mg/dL (65-105); Magnesium 1.8 mg/dL (1.6-2.3); Phosphorus 6.7 mg/dL (2.5-4.5); Sodium 136 mmol/L (137-145)
[2020-09-08] MEDS: SODIUM CHLORIDE 0.9% IV 1,000 ML 50 ML IV CONT (06:49)
[2020-09-08] MEDS: LEVOTHYROXINE SODIUM 125 MCG TABLET PO (06:50)
--- NOTE | 2020-09-08 08:03 | WPDGIPROGNO ---
Progress Note: A&P Assessment and Plan (1) Colon polyps: Code(s): K63.5 - Polyp of colon Status: Chronic Assessment and Plan: Patient with several very large polyps noted in the colon. Most noticeably in the cecum, proximal ascending colon, transverse colon. Histology pending but grossly appear benign. Appreciate surgery consult. Ideally the should be surgically resected. However patient does have significant comorbid disease and poor respiratory function which currently limits surgical resection. Plan for outpatient surgery follow-up in hopefully resection in the future if her respiratory status improves. Note that these polyps may be prone to some blood loss. Anticoagulation with atrial fibrillation should be performed with caution. (2) Congestive heart failure (CHF): Qualifiers: Heart failure type: unspecified Heart failure chronicity: chronic Qualified Code(s): I50.9 - Heart failure, unspecified Code(s): I50.9 - Heart failure, unspecified Status: Chronic (3) COPD (chronic obstructive pulmonary disease): Qualifiers: COPD type: unspecified COPD Qualified Code(s): J44.9 - Chronic obstructive pulmonary disease, unspecified Code(s): J44.9 - Chronic obstructive pulmonary disease, unspecified Status: Chronic (4) Atrial fibrillation: Code(s): I48.91 - Unspecified atrial fibrillation Status: Acute Subjective Date/time seen: 09/08/20 08:03 Patient comfortable a baseline today. Still uses CPAP at night. No signs of GI blood loss. She denies abdominal pain. Review of Systems Review of Systems: All systems reviewed & are unremarkable except as noted in HPI and below Exam Narrative: Exam Narrative: Physical exam reveals Vital Signs to be stable. Bowel sounds are present. Lungs are clear. Heart without murmur. Abdomen is benign. Somewhat obese in nature. Objective Data Vital Signs Vital Signs: Vital Signs - 24 hr 09/07/20 08:06 09/07/20 10:30 09/07/20 10:40 Temperature 96.5 F L Pulse Rate 66 73 79 Respiratory Rate 18 15 19 Blood Pressure 112/54 L 92/38 L 91/58 L Pulse Oximetry 89 L 94 93 09/07/20 10:50 09/07/20 11:19 09/07/20 11:43 Temperature 96.7 F L Pulse Rate 77 73 73 Respiratory Rate 26 H 18 Blood Pressure 95/46 L 120/41 L Pulse Oximetry 97 94 09/07/20 14:22 09/07/20 14:32 09/07/20 16:00 Temperature 98.0 F Pulse Rate 67 66 84 Respiratory Rate 18 18 20 Blood Pressure 126/50 L Pulse Oximetry 95 96 09/07/20 17:51 09/07/20 20:00 09/07/20 20:06 Temperature Pulse Rate 74 76 68 Respiratory Rate 18 Blood Pressure Pulse Oximetry 09/07/20 20:18 09/07/20 20:34 09/07/20 22:30 Temperature 97 F L Pulse Rate 66 92 Respiratory Rate 18 18 Blood Pressure 112/42 L Pulse Oximetry 93 93 09/08/20 00:00 09/08/20 04:00 09/08/20 04:40 Temperature 97 F L Pulse Rate 79 56 L 63 Respiratory Rate 18 Blood Pressure 112/45 L Pulse Oximetry 99 Intake/Output Intake/Output: Intake & Output 09/05/20 09/06/20 09/07/20 09/08/20 23:59 23:59 23:59 23:59 Intake Total 2530 2650 3370 300 Output Total 450 1250 1700 650 Balance 2080 1400 1670 -350 Meds/Results Medications: Active Medications Generic Name Dose Route Start Last Admin Trade Name Freq PRN Reason Stop Dose Admin Acetaminophen 1,000 mg 08/31/20 01:04 09/06/20 23:24 Acetaminophen 500 Mg Tablet PO 1,000 mg Q6H PRN Administration Mild Pain (1-10) Or Fever Albuterol 5 mg 08/30/20 20:00 09/07/20 20:06 Albuterol Sulfate Neb 2.5 Mg/0.5 Ml Inh INHALATION 5 mg Q6HRT GUCCI Administration Carvedilol 3.125 mg 08/31/20 01:05 09/07/20 17:51 Carvedilol 3.125 Mg Tablet PO 3.125 mg BIDWM GUCCI Administration Cyanocobalamin 1,000 mcg 08/31/20 09:00 09/07/20 11:41 Cyanocobalamin 1,000 Mcg Tablet PO 1,000 mcg QAM GUCCI Administration Digoxin 125 mcg 08/31/20 09:00 09/04/20 08
--- NOTE | 2020-09-08 08:08 | WPDANESPN ---
Anes - Prog Note Post-Op Date/Time: 09/08/20 08:08 Cardiovascular status: normal Respiratory status: other (patient acutely short of breath. MD there, patient getting on O2 NC. ) Airway patency: baseline Mental status: baseline Post-Op hydration status: normal Vital Signs: Last Vital Signs Temp 36.1 C L 09/08/20 04:40 Pulse 63 09/08/20 04:40 Resp 18 09/08/20 04:40 BP 112/45 L 09/08/20 04:40 Pulse Ox 99 09/08/20 04:40 Pain Score (VAS): 0 I/O: Intake & Output 09/07/20 09/08/20 09/08/20 23:59 07:59 15:59 Intake Total 2580 300 Output Total 900 650 Balance 1680 -350 Laboratory Tests 09/08/20 05:28 09/08/20 05:28 09/08/20 09/08/20 05:28 05:28 WBC 6.0 RBC 2.84 L Hgb 7.9 L Hct 25.8 L MCV 90.8 MCH 27.8 MCHC 30.6 L RDW 14.6 H Plt Count 158 MPV 10.9 H Sodium 136 L Potassium 4.0 Chloride 103 Carbon Dioxide 28 Anion Gap 5 L BUN 36 H Creatinine 3.80 H Estim Creat Clear Calc 16 Estimated GFR 12 L Glucose 87 Calcium 6.8 L Phosphorus 6.7 H Magnesium 1.8 Albumin 3.0 L Post-procedural complaints: none Patient Feedback: Patient satisfied with anesthetic care.
[2020-09-08] MEDS: PENTOXIFYLLINE 400 MG TABCR PO ×2 (08:24→17:04)
[2020-09-08] MEDS: CYANOCOBALAMIN 1,000 MCG TABLET 1000 MCG PO (08:25)
[2020-09-08] MEDS: CHOLECALCIFEROL 1,000 UNITS TABLET 1000 UNITS PO (08:25)
[2020-09-08] MEDS: FERROUS SULFATE 324 MG TABLET PO ×2 (08:25→17:03)
[2020-09-08] MEDS: PANTOPRAZOLE 40 MG TABLET PO (08:25)
[2020-09-08] MEDS: ACIDOPHILUS/BULGARICUS CHEWABLE TABLET 1 TABLET PO ×2 (08:25→17:04)
[2020-09-08] MEDS: TAMSULOSIN HCL 0.4 MG CAPSULE PO (08:25)
[2020-09-08] MEDS: SERTRALINE HCL 25 MG TABLET PO (08:25)
[2020-09-08] MEDS: carvediloL 3.125 MG TABLET PO ×2 (08:25→17:04)
--- NOTE | 2020-09-08 08:25 | WPDHPUPDATE1 ---
History and Physical Update Update Date/Time: 09/08/20 08:25 History and Physical has been reviewed, including an updated exam of the patient. There are NO changes in the patient's condition. Risks, benefits, and alternatives have been discussed and questions answered. Patient agrees to proceed with procedure.
[2020-09-08] MEDS: PREGABALIN (*CRX) 50 MG CAPSULE 200 MG PO ×2 (08:31→17:03)
--- NOTE | 2020-09-08 08:35 | PM.PNPUL ---
Progress Note: A&P Assessment and Plan (1) Acute and chronic respiratory failure with hypercapnia: Code(s): J96.22 - Acute and chronic respiratory failure with hypercapnia Status: Chronic Assessment and Plan: 08/31 Patient with acute on chronic respiratory failure from COPD. Patient's blood gas in the emergency room was 7.304/66./82.4 on 5 L nasal cannula. This represents an acute on chronic respiratory acidosis. Patient has improved on BiPAP /6 and is now comfortable and requesting to take the BiPAP off. BiPAP has been removed and she is now on 2 L nasal cannula saturations 100%. I will continue nebulized albuterol and ipratropium bromide at this point. Patient does not have active wheezing and I will hold off on inhaled or systemic steroids. I will repeat a chest x-ray in the morning. Patient does qualify for noninvasive ventilation and I will continue her BiPAP 12/6 tonight as she would benefit from noninvasive ventilation for her hypercarbia and her elevated bicarb level. 09/01 Patient with chronic respiratory failure with admit ABG on 5 L NC 7.30/66/82 with elevated CO2 levels. Patient would benefit from noninvasive ventilation due to chronic CO2 retention from COPD. Continue albuterol and ipratroprium nebulized, no wheezes today. She stated the pressure on BiPAP was uncomfortable and I will place her on AVAPS tonight with settings rate 14, TV 400, EPAP5, Inspiratory min 7, inspiratory max 25, 35% FIO2. I will obtain ABG prior to removal of noninvasive. 09/02 Patient wore hospital AVAPS rate 14, TV 400, E pap 5, Expiratory minimum pressure 7, inspiratory maximum pressure 25, 30% FiO2. Patient said she was comfortable on the settings. Blood gas prior to removal demonstrated 7.45/44/101. Patient states that she is breathing better again today and feels 80-85% back to baseline. Continue nebulized albuterol and ipratroprium. Will attempt to obtain home machine in hospital prior to discharge. 09/03 She is now on room air in the day, tolerated AVAPS overnight. ABG today showed 7.47/ 38.8 / 77.8 on 2 L and AVAPS use during sleep. This shows elimination of hypercapnea with nocturnal use. Continue to use at night. 09/04 She has been followed by Akosua Stern ARCHITECTURE DEPARTMENT CHAIR at [place], and Dr Shi for cardiology. She has not had O2 needs evaluated for several years, and needs to follow up after discharge for O2 re-evaluation, now on RA in the day. 09/05 Patient breathing close to baseline, tolerating home AVAPS-AE machine at night. Overnight Oximetry on 2 L, AVAPS-AE mode demonstrated saturations averaged 91, lowest 78%, saturations less than 88% for 94 minutes, 23% of time. Does not need antibiotics for pneumonia and I DC doxy. I will repeat overnight oximetry on 4 L NC tonight. 09/06 Bad night but did try to wear home machine. Error in overnight oximetry. Claustophobia and could not get nurse button to work. Remains on RA during day with saturation 97-100%. I will repeat overnight oximetry on home machine on 4 L NC tonight. 09/07 Did not wear AVAPS-AE last night as was getting colonoscopy prep. Will weaar tonight on 4 L and will repeart apnea link to assess oxygenation. Ready for discharge from my perspective once adequate oxygenation at night. 09/08 Patient wore home unit AVAPS-AE with 4 L bleed in and overnight oximetry with average saturation 96%. Lowest saturation 82%. Saturation less than or equal to 90% for 23 minutes or 6% of the time. Saturation less than or equal to 88% 6 minutes or 2% of the time. Patient is becoming more familiar with the home noninvasive ventilator unit and we practiced turning the machine on and off and putting the mask on which she did 3 times by herself. Will continue 4 L bleed in. Assisted living no longer an option and will need SNF placement. She should wear her home AVAPS-AE with 4 L bleed in at night and when sleeping during the day in her new facility. From pulmonary perspective ready for DC home on: Doug No
[2020-09-08] MEDS: ALBUTEROL SULFATE NEB 2.5 MG/0.5 ML INH 5 MG INHALATION ×3 (09:03→21:34)
--- NOTE | 2020-09-08 09:49 | WPDURCON ---
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 In the past, she has done well following short-term catheter placement. I would expect that she would do the same on this occasion. I would recommend a voiding trial prior to discharge. Urology Consult Note HPI Date Seen: 09/08/20 Requesting Physician: Madi Mae MD Primary Care Provider: Ashanti Rodrigez, COUNCILPERSON- Consult Narrative Narrative: Valorie Harris is a 75 year old female with extensive medical comorbidities, ss documented elsewhere, who was admitted several days ago with respiratory compromise and acute kidney injury. Around the time of admission she developed difficulty voiding eventually leading to placement of a urethral catheter. Patient has had similar episodes in the past. During an admission in November 2019 she had a similar episode which resolved following improvement in her overall medical condition. At that time she passed her voiding trial without any difficulty. She states she has no voiding difficulty while at. Review of Systems Cardiovascular: Cardiovascular: Denies chest pain, Denies lightheadedness, Denies palpitations and Denies dyspnea Respiratory: Respiratory: Denies dyspnea Gastrointestinal: Gastrointestinal: Denies diarrhea, Denies nausea and Denies vomiting Genitourinary: Genitourinary: Denies hematuria and Denies dysuria Endocrine: Endocrine: Denies palpitations [facility] Past Medical History Medical History Arterial stent thrombosis Left leg Atrial fibrillation 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[facility]; Dr Shi, maintenance helper COPD (chronic obstructive pulmonary disease) Deficits with air trapping and increased airway resistance with lack of response to bronchodilator therapy. Now on Trilogy. Depression Descending aortic aneurysm Stable fusiform 4.7 cm within stent graft H/O: lung cancer 2006 chemotherapy and s/p lobectomy Hemorrhoids Hyperlipidemia Hypertension Hypothyroidism Morbid obesity Neuropathy Peptic ulcer disease Peripheral artery disease Surgical History Surgical History H/O tubal ligation History of appendectomy Open appendectomy for perforated appendicitis. History of colonoscopy History of endovascular stent graft for abdominal aortic aneurysm History of esophagogastroduodenoscopy (EGD) History of lobectomy of lung Right upper lobectomy at [facility] due to lung cancer in 2006. History of total hysterectomy with bilateral salpingo-oophorectomy (BSO) Laparoscopic. Family History Family History Father Family history of malignant neoplasm Family history of arthritis Carcinoma of colon Sibling Family history of arthritis Mother Family history of malignant neoplasm breast cancer developed to bone; Other Family history of malignant neoplasm of bone Family history of thyroid disease Social History Social History Social History: The patient is . She has 1 son that is her only child. He is a durable power attorney general for healthcare. She is wheelchair-bound and has home health coming about once a week. She resides at [facility]. She smoked 2 packs per day for 40 years but quit smoking in 2005. 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 Code status: DNR state form on chart Smoking packs per day: 2 Smoking cigarettes per day: 40.0 Years smoked: 40 Smoking pack-years: 80.00 Smoking status: Former smoker Tobacco
--- NOTE | 2020-09-08 09:51 | WPDANESPN ---
Anes - Prog Note Post-Op Date/Time: 09/08/20 09:51 Cardiovascular status: normal Respiratory status: other (patient acutely short of breath. MD there, patient getting on O2 NC. ) Airway patency: baseline Mental status: baseline Post-Op hydration status: normal Vital Signs: Last Vital Signs Temp 97 F L 09/08/20 04:40 Pulse 84 09/08/20 09:13 Resp 20 09/08/20 09:13 BP 112/45 L 09/08/20 04:40 Pulse Ox 85 L 09/08/20 09:46 Pain Score (VAS): 09/28 I/O: Intake & Output 09/07/20 09/08/20 09/08/20 23:59 07:59 15:59 Intake Total 2580 300 Output Total 900 650 Balance 1680 -350 Laboratory Tests 09/08/20 05:28 09/08/20 05:28 09/08/20 09/08/20 05:28 05:28 WBC 6.0 RBC 2.84 L Hgb 7.9 L Hct 25.8 L MCV 90.8 MCH 27.8 MCHC 30.6 L RDW 14.6 H Plt Count 158 MPV 10.9 H Sodium 136 L Potassium 4.0 Chloride 103 Carbon Dioxide 28 Anion Gap 5 L BUN 36 H Creatinine 3.80 H Estim Creat Clear Calc 16 Estimated GFR 12 L Glucose 87 Calcium 6.8 L Phosphorus 6.7 H Magnesium 1.8 Albumin 3.0 L Post-procedural complaints: none Patient Feedback: Patient satisfied with anesthetic care.
[2020-09-08] MEDS: ACETAMINOPHEN 500 MG TABLET 1000 MG PO ×2 (10:52→20:36)
--- NOTE | 2020-09-08 11:52 | PM.PNNEP ---
Progress Note: A&P Assessment and Plan (1) KONRAD (acute kidney injury): Code(s): N17.9 - Acute kidney failure, unspecified Status: Acute Assessment and Plan: The patient has acute kidney injury. Urine electrolytes are not pre renal. Urine eosinophils are negative Renal ultrasound is negative for acute changes. patient is getting IV fluids. She is off antibiotics. Creatinine has improved a little bit. Continue same therapy. Check a renal panel in the morning. (2) Diarrhea: Qualifiers: Diarrhea type: unspecified type Qualified Code(s): R19.7 - Diarrhea, unspecified Code(s): R19.7 - Diarrhea, unspecified Status: Acute Assessment and Plan: The patient had diarrhea before. This is improved. She is eating well. (3) Pneumonia: Qualifiers: Laterality: unspecified laterality Lung location: unspecified part of lung Pneumonia type: due to unspecified organism Qualified Code(s): J18.9 - Pneumonia, unspecified organism Code(s): J18.9 - Pneumonia, unspecified organism Status: Acute Assessment and Plan: The patient received antibiotic (4) Urinary retention: Code(s): R33.9 - Retention of urine, unspecified Status: Acute Assessment and Plan: The patient has a Khan catheter. urology is following (5) Hypertension: Code(s): I10 - Essential (primary) hypertension Status: Chronic Assessment and Plan: Blood pressure is well controlled (6) Atrial fibrillation: Code(s): I48.91 - Unspecified atrial fibrillation Status: Acute Assessment and Plan: Heart rate is well controlled (7) Anemia: Code(s): D64.9 - Anemia, unspecified Status: Chronic Assessment and Plan: Hemoglobin is a bit low. She has polyps on colonoscopy Subjective Date/time seen: 09/08/20 11:52 Interval history: Patient is awake. Eating and drinking fine. She denies any chest pain. She gets a little short of breath when she moves from bed to chair. Making plenty of urine. No rash or itching Review of Systems Cardiovascular: Cardiovascular: Reports no additional cardiovascular complaints Respiratory: Respiratory: Reports no additional respiratory complaints Gastrointestinal: Gastrointestinal: Reports no additional gastrointestinal complaints Genitourinary: Genitourinary: Reports no additional female genitourinary complaints Exam Narrative: Exam Narrative: WDWN female in NAD skin no rash head ncat lungs clear cor reg no rub abd BS+ nontender and soft ext 1+ edema. Objective Data Vital Signs Vital Signs: Vital Signs - 24 hr 09/07/20 14:22 09/07/20 14:32 09/07/20 16:00 Temperature 36.7 C Pulse Rate 67 66 84 Respiratory Rate 18 18 20 Blood Pressure 126/50 L Pulse Oximetry 95 96 09/07/20 17:51 09/07/20 20:00 09/07/20 20:06 Temperature Pulse Rate 74 76 68 Respiratory Rate 18 Blood Pressure Pulse Oximetry 09/07/20 20:18 09/07/20 20:34 09/07/20 22:30 Temperature 36.1 C L Pulse Rate 66 92 Respiratory Rate 18 18 Blood Pressure 112/42 L Pulse Oximetry 93 93 09/08/20 00:00 09/08/20 04:00 09/08/20 04:40 Temperature 36.1 C L Pulse Rate 79 56 L 63 Respiratory Rate 18 Blood Pressure 112/45 L Pulse Oximetry 99 09/08/20 08:00 09/08/20 08:25 09/08/20 09:04 Temperature Pulse Rate 80 80 84 Respiratory Rate 20 Blood Pressure Pulse Oximetry 92 09/08/20 09:13 09/08/20 09:46 Temperature Pulse Rate 84 Respiratory Rate 20 Blood Pressure Pulse Oximetry 85 L Intake/Output Intake/Output: Intake & Output 09/05/20 09/06/20 09/07/20 09/08/20 23:59 23:59 23:59 23:59 Intake Total 2530 2650 3370 540 Output Total 450 1250 1700 650 Balance 2080 1400 1670 -110 Meds/Results Medications: Active Medications Generic Name Dose Route Start Last Admin Trade Name Freq PRN Reason
[2020-09-08 16:26] LABS: Chloride Rand Ur 28 mmol/L (32-290); Chloride/Creatinine Rand Ur 34 (38-318); Creatinine Random Urine 82 mg/dL (20-275)
--- NOTE | 2020-09-08 19:40 | P.PNIM_ITS ---
Progress Note: A&P Assessment and Plan (1) KONRAD (acute kidney injury): Code(s): N17.9 - Acute kidney failure, unspecified Status: Acute Assessment and Plan: Suspect due to volume depletion but consider related to abx (AIN?). Urine eos negative. Renal US no acute findings. Complement normal. Lasix, Entresto held. Cr unchanged today. Continue low amount of IV fluids. Monitor fluid status closely. Continue to follow. Nephrology consult. (2) Diarrhea: Qualifiers: Diarrhea type: unspecified type Qualified Code(s): R19.7 - Diarrhea, unspecified Code(s): R19.7 - Diarrhea, unspecified Status: Acute Assessment and Plan: C diff negative. Suspect due to medications. Abx stopped. Diarrhea better. Continue PRN loperamide (3) Acute hypercapnic respiratory failure: Code(s): J96.02 - Acute respiratory failure with hypercapnia Status: Acute Assessment and Plan: Patient had elevated pCO2 of 66 on admission. She was treated with BiPAP. Currently on albuterol. COVID-19 negative. Apnea link 09/02- incomplete; no AHI or RI documented. [employer] Installer adjusting BiPAP and O2 bleed in. Repeat apnea link 09/06 noted with RI and AHI 26 on room air. Appreciate pulmonary input. (4) Pneumonia: Qualifiers: Laterality: unspecified laterality Lung location: unspecified part of lung Pneumonia type: due to unspecified organism Qualified Code(s): J18.9 - Pneumonia, unspecified organism Code(s): J18.9 - Pneumonia, unspecified organism Status: Acute Assessment and Plan: CT chest on admission showing a RML PNA. She was started on Levaquin, Vancomycin and Zosyn. Vanco/Zosyn were discontinued on 09/03 and started on IV Rocephin and oral doxycycline. Levaquin stopped after dose 5 on 09/04. Rocephin and Doxy stopped with last dose also on 09/04. No abx since 09/04/20. No fevers and WBC remains normal. Continue to monitor. (5) Encephalopathy acute: Code(s): G93.40 - Encephalopathy, unspecified Status: Acute Assessment and Plan: Most likely metabolic encephalopathy felt to be multifactorial related to medication and CO2 retention. Symptoms have resolved (6) Congestive heart failure (CHF): Qualifiers: Heart failure chronicity: chronic Heart failure type: unspecified Qualified Code(s): I50.9 - Heart failure, unspecified Code(s): I50.9 - Heart failure, unspecified Status: Chronic Assessment and Plan: No Echo listed. Most likely systolic CHF. Euvolemic. Lasix and Entresto held given the elevated Cr. Resume home medications when renal function improves. (7) Peripheral artery disease: Code(s): I73.9 - Peripheral vascular disease, unspecified Status: Chronic Assessment and Plan: Stable. Continue current meds. (8) COPD (chronic obstructive pulmonary disease): Qualifiers: COPD type: unspecified COPD Qualified Code(s): J44.9 - Chronic obstructive pulmonary disease, unspecified Code(s): J44.9 - Chronic obstructive pulmonary disease, unspecified Status: Chronic Assessment and Plan: With acute exacerbation. Continue Albuterol. On Anoro inhaler treatment at home. Pulmonary following. Appreciate their input. Katlyn added. (9) Peptic ulcer disease: Code(s): K27.9 - Peptic ulcer, site unspecified, unspecified as acute or chronic, without hemorrhage or perforation Status: Acute Assessment and Plan: Guaiac positive stools. EGD s
[2020-09-08] MEDS: SIMVASTATIN 20 MG TABLET PO (20:37)
[2020-09-08] MEDS: HEPARIN SODIUM 5,000 UNITS/ML VIAL 5000 UNITS SUB-Q (21:55)
[2020-09-09] VITALS (19 sets, daily range): BP systolic 100–118; BP diastolic 48–70; PULSE 60–90; RESP 14–20; TEMP 35.6–36.1; O2SAT 92–100
[2020-09-09] MEDS: SODIUM CHLORIDE 0.9% IV 1,000 ML 50 ML IV CONT (02:42)
[2020-09-09] MEDS: ALBUTEROL SULFATE NEB 2.5 MG/0.5 ML INH 5 MG INHALATION ×4 (03:09→20:41)
[2020-09-09] MEDS: LEVOTHYROXINE SODIUM 125 MCG TABLET PO (05:35)
[2020-09-09] MEDS: HEPARIN SODIUM 5,000 UNITS/ML VIAL 5000 UNITS SUB-Q ×3 (05:35→21:34)
[2020-09-09] MEDS: SALINE 0.65% NAS SOLN 44 ML BTL 1 SPRAY NASAL (05:51)
[2020-09-09 05:55] LABS: Hematocrit 25.6 % (37.0-47.0); Hemoglobin 7.6 g/dL (12.0-15.0); Mean Corpuscular HGB Conc 29.7 g/dl (32-36); Mean Corpuscular Hemoglobin 27.6 pg (26-34); Mean Corpuscular Volume 93.1 fl (80-100); Mean Platelet Volume 11.5 fl (7.4-10.4); Platelet Count Result 154 k/mm3 (150-375); Red Blood Count 2.75 M/mm3 (4.2-5.4); Red Cell Distribution Width 15.1 % (11.5-14.5); White Blood Count 5.2 K/mm3 (4.5-10.0)
[2020-09-09 06:12] LABS: Alanine Aminotransferase 11 U/L (4-35); Albumin Level 3.2 g/dL (3.5-5.1); Alkaline Phosphatase 77 U/L (38-126); Anion Gap 5 mmol/L (8-16); Aspartate Amino Transferase 15 U/L (14-36); Bilirubin,Total 0.2 mg/dL (0.2-1.3); Blood Urea Nitrogen 37 mg/dL (7-17); Calcium 7.1 mg/dL (8.4-10.2); Carbon Dioxide 29 mmol/L (22-30); Chloride 105 mmol/L (98-107); Estimated CRCL calculation 19 ml/min; Estimated Glomerular Filt Rate 14; Glucose 91 mg/dL (65-105); Magnesium 1.6 mg/dL (1.6-2.3); Phosphorus 6.5 mg/dL (2.5-4.5); Potassium 4.3 mmol/L (3.4-5.0); Sodium 139 mmol/L (137-145)
[2020-09-09] MEDS: FERROUS SULFATE 324 MG TABLET PO ×2 (08:53→16:46)
[2020-09-09] MEDS: TAMSULOSIN HCL 0.4 MG CAPSULE PO (08:53)
[2020-09-09] MEDS: CYANOCOBALAMIN 1,000 MCG TABLET 1000 MCG PO (08:53)
[2020-09-09] MEDS: carvediloL 3.125 MG TABLET PO ×2 (08:53→16:46)
[2020-09-09] MEDS: PREGABALIN (*CRX) 50 MG CAPSULE 200 MG PO ×2 (08:53→16:50)
[2020-09-09] MEDS: SERTRALINE HCL 25 MG TABLET PO (08:54)
[2020-09-09] MEDS: ACIDOPHILUS/BULGARICUS CHEWABLE TABLET 1 TABLET PO ×2 (08:54→16:47)
[2020-09-09] MEDS: PANTOPRAZOLE 40 MG TABLET PO (08:54)
[2020-09-09] MEDS: PENTOXIFYLLINE 400 MG TABCR PO ×2 (08:54→16:46)
[2020-09-09] MEDS: CHOLECALCIFEROL 1,000 UNITS TABLET 1000 UNITS PO (08:54)
--- NOTE | 2020-09-09 10:02 | WPDGIPROGNO ---
Progress Note: A&P Assessment and Plan (1) Colon polyps: Code(s): K63.5 - Polyp of colon Status: Chronic Assessment and Plan: Patient had multiple large colon polyps that were too large to remove endoscopically these were biopsied and tattooed. Eventual followup for surgery and potential resection is advised. (2) Pneumonia: Qualifiers: Laterality: unspecified laterality Lung location: unspecified part of lung Pneumonia type: due to unspecified organism Qualified Code(s): J18.9 - Pneumonia, unspecified organism Code(s): J18.9 - Pneumonia, unspecified organism Status: Acute (3) Peptic ulcer disease: Code(s): K27.9 - Peptic ulcer, site unspecified, unspecified as acute or chronic, without hemorrhage or perforation Status: Acute Assessment and Plan: Gastric erosions identified by endoscopy. She had ulcerations also noted in December of last year. Plan to avoid nonsteroidal anti-inflammatory agents long-term proton pump inhibitor use suggested. Monitor hemoglobin as an outpatient. We may need to be cautious should anticoagulation be required. (4) KONRAD (acute kidney injury): Code(s): N17.9 - Acute kidney failure, unspecified Status: Acute Subjective Date/time seen: 09/09/20 10:02 Patient alert sitting upright this morning states she had a panic attack last night. Denies abdominal pain. Diarrhea has resolved. Review of Systems Review of Systems: All systems reviewed & are unremarkable except as noted in HPI and below Exam Narrative: Exam Narrative: Physical exam abdomen is obese bowel sounds present soft nontender with no organomegaly. Objective Data Vital Signs Vital Signs: Vital Signs - 24 hr 09/08/20 12:00 09/08/20 13:05 09/08/20 13:20 Temperature Pulse Rate 63 60 Respiratory Rate 20 Blood Pressure Pulse Oximetry 92 09/08/20 13:32 09/08/20 14:00 09/08/20 16:00 Temperature 97.1 F L Pulse Rate 61 69 78 Respiratory Rate 20 20 Blood Pressure 116/47 L Pulse Oximetry 96 09/08/20 17:04 09/08/20 20:00 09/08/20 21:14 Temperature 97 F L Pulse Rate 79 78 78 Respiratory Rate 18 Blood Pressure 125/76 Pulse Oximetry 96 09/08/20 21:37 09/09/20 00:00 09/09/20 01:00 Temperature Pulse Rate 75 77 83 Respiratory Rate 20 Blood Pressure Pulse Oximetry 94 09/09/20 03:13 09/09/20 04:00 09/09/20 04:28 Temperature 97 F L Pulse Rate 70 73 60 Respiratory Rate 20 20 Blood Pressure 100/48 L Pulse Oximetry 95 09/09/20 08:00 09/09/20 08:53 09/09/20 09:02 Temperature Pulse Rate 60 66 76 Respiratory Rate 20 Blood Pressure Pulse Oximetry 95 09/09/20 09:04 Temperature Pulse Rate 66 Respiratory Rate 20 Blood Pressure Pulse Oximetry 95 Intake/Output Intake/Output: Intake & Output 09/06/20 09/07/20 09/08/20 09/09/20 23:59 23:59 23:59 23:59 Intake Total 2650 3370 1560 1580 Output Total 1250 1700 1350 750 Balance 1400 1670 210 830 Meds/Results Medications: Active Medications Generic Name Dose Route Start Last Admin Trade Name Freq PRN Reason Stop Dose Admin Acetaminophen 1,000 mg 08/31/20 01:04 09/08/20 20:36 Acetaminophen 500 Mg Tablet PO 1,000 mg Q6H PRN Administration Mild Pain (1-10) Or Fever Albuterol 5 mg 08/30/20 20:00 09/09/20 09:00 Albuterol Sulfate Neb 2.5 Mg/0.5 Ml Inh INHALATION 5 mg Q6HRT GUCCI Administration Carvedilol 3.125 mg 08/31/20 01:05 09/09/20 08:53 Carvedilol 3.125 Mg Tablet PO 3.125 mg BIDWM GUCCI Administration Cyanocobalamin 1,000 mcg 08/31/20 09:00 09/09/20 08:53 Cyanocobalamin 1,000 Mcg Tablet PO 1,000 mcg QAM GUCCI Administration Digoxin 125 mcg 08/31/20 09:00 09/04/20 08:51 Digoxin Tab 125 Mcg Tablet PO 125 mcg QAM GUCCI Administration Ferrous Sulfate 324 mg 09/07/20 17:00 09/09/20 08:53 Ferrous Sulfate 324 Mg Tablet PO 324 mg BIDWM GUCCI Administration Furosemi
--- NOTE | 2020-09-09 10:17 | PCNWS ---
Weekly nutritional screen. Patient is tolerating current diet with adequate intake. No weight loss reported. No nutritional needs at this time.
--- NOTE | 2020-09-09 10:58 | P.PNPL_ITS ---
Progress Note: A&P Assessment and Plan (1) Acute and chronic respiratory failure with hypercapnia: Code(s): J96.22 - Acute and chronic respiratory failure with hypercapnia Status: Chronic Assessment and Plan: 08/31 Patient with acute on chronic respiratory failure from COPD. Patient's blood gas in the emergency room was 7.304/66./82.4 on 5 L nasal cannula. This represents an acute on chronic respiratory acidosis. Patient has improved on BiPAP /6 and is now comfortable and requesting to take the BiPAP off. BiPAP has been removed and she is now on 2 L nasal cannula saturations 100%. I will continue nebulized albuterol and ipratropium bromide at this point. Patient does not have active wheezing and I will hold off on inhaled or systemic steroids. I will repeat a chest x-ray in the morning. Patient does qualify for noninvasive ventilation and I will continue her BiPAP 12/6 tonight as she would benefit from noninvasive ventilation for her hypercarbia and her elevated bicarb level. 09/01 Patient with chronic respiratory failure with admit ABG on 5 L NC 7.30/66/82 with elevated CO2 levels. Patient would benefit from noninvasive ventilation due to chronic CO2 retention from COPD. Continue albuterol and ipratroprium nebulized, no wheezes today. She stated the pressure on BiPAP was uncomfortable and I will place her on AVAPS tonight with settings rate 14, TV 400, EPAP5, Inspiratory min 7, inspiratory max 25, 35% FIO2. I will obtain ABG prior to removal of noninvasive. 09/02 Patient wore hospital AVAPS rate 14, TV 400, E pap 5, Expiratory minimum pressure 7, inspiratory maximum pressure 25, 30% FiO2. Patient said she was comfortable on the settings. Blood gas prior to removal demonstrated 7.45/44/101. Patient states that she is breathing better again today and feels 80-85% back to baseline. Continue nebulized albuterol and ipratroprium. Will attempt to obtain home machine in hospital prior to discharge. 09/03 She is now on room air in the day, tolerated AVAPS overnight. ABG today showed 7.47/ 38.8 / 77.8 on 2 L and AVAPS use during sleep. This shows elimination of hypercapnea with nocturnal use. Continue to use at night. 09/04 She has been followed by Akosua Stern FREIGHT UNLOADER at [place], and Dr Shi for cardiology. She has not had O2 needs evaluated for several years, and needs to follow up after discharge for O2 re-evaluation, now on RA in the day. 09/05 Patient breathing close to baseline, tolerating home AVAPS-AE machine at night. Overnight Oximetry on 2 L, AVAPS-AE mode demonstrated saturations averaged 91, lowest 78%, saturations less than 88% for 94 minutes, 23% of time. Does not need antibiotics for pneumonia and I DC doxy. I will repeat overnight oximetry on 4 L NC tonight. 09/06 Bad night but did try to wear home machine. Error in overnight oximetry. Claustophobia and could not get nurse button to work. Remains on RA during day with saturation 97-100%. I will repeat overnight oximetry on home machine on 4 L NC tonight. 09/07 Did not wear AVAPS-AE last night as was getting colonoscopy prep. Will weaar tonight on 4 L and will repeart apnea link to assess oxygenation. Ready for discharge from my perspective once adequate oxygenation at night. 09/08 Patient wore home unit AVAPS-AE with 4 L bleed in and overnight oximetry with average saturation 96%. Lowest saturation 82%. Saturation less than or equal to 90% for 23 minutes or 6% of the time. Saturation less than or equal to 88% 6 minutes or 2% of the time. Patient is becoming more familiar with the home noninvasive ventilator unit and we practiced turning the machine on and off and putting the mask on which she did 3 times by herself. Will continue 4 L bleed in. Assisted
--- NOTE | 2020-09-09 11:54 | PCNSR ---
On 09/09/20, the student, Mini Sen, provided care and completed [facility]. I have reviewed the student's documentation and agree with the findings.
--- NOTE | 2020-09-09 12:59 | PM.IMPN ---
Progress Note: A&P Assessment and Plan (1) KONRAD (acute kidney injury): Code(s): N17.9 - Acute kidney failure, unspecified Status: Acute Assessment and Plan: Suspect due to volume depletion but consider related to abx (AIN?). Urine eos negative. Renal US no acute findings. Complement normal. Lasix, Entresto held. Cr slightly better today. Some evidence of fluid overload. Discussed with nephrology; he will evaluate but consider stoping IV fluids. Continue to follow. (2) Diarrhea: Qualifiers: Diarrhea type: unspecified type Qualified Code(s): R19.7 - Diarrhea, unspecified Code(s): R19.7 - Diarrhea, unspecified Status: Acute Assessment and Plan: C diff negative. Suspect due to medications. Abx stopped. Diarrhea better. Continue PRN loperamide (3) Acute hypercapnic respiratory failure: Code(s): J96.02 - Acute respiratory failure with hypercapnia Status: Acute Assessment and Plan: Patient had elevated pCO2 of 66 on admission. She was treated with BiPAP. Currently on albuterol. COVID-19 negative. Apnea link 09/03 incomplete; no AHI or RI documented. Inside Sales Assistant adjusting BiPAP and O2 bleed in. Repeat apnea link 09/06 noted with RI and AHI 26 on room air. The apnea link 09/08 showing AHI and RI 9 on home unit with 4L bleed in. Medications and unit adjusted. Appreciate pulmonary input. (4) Pneumonia: Qualifiers: Laterality: unspecified laterality Lung location: unspecified part of lung Pneumonia type: due to unspecified organism Qualified Code(s): J18.9 - Pneumonia, unspecified organism Code(s): J18.9 - Pneumonia, unspecified organism Status: Acute Assessment and Plan: CT chest on admission showing a RML PNA. She was started on Levaquin, Vancomycin and Zosyn. Vanco/Zosyn were discontinued on 09/03 and started on IV Rocephin and oral doxycycline. Levaquin stopped after dose 5 on 09/04. Rocephin and Doxy stopped with last dose also on 09/04. No abx since 09/04/20. No fevers and WBC remains normal. Continue to monitor. (5) Encephalopathy acute: Code(s): G93.40 - Encephalopathy, unspecified Status: Acute Assessment and Plan: Most likely metabolic encephalopathy felt to be multifactorial related to medication and CO2 retention. Symptoms have resolved (6) Congestive heart failure (CHF): Qualifiers: Heart failure chronicity: chronic Heart failure type: unspecified Qualified Code(s): I50.9 - Heart failure, unspecified Code(s): I50.9 - Heart failure, unspecified Status: Chronic Assessment and Plan: No Echo listed. Most likely systolic CHF. Euvolemic. Lasix and Entresto held given the elevated Cr. Resume home medications when renal function improves. Monitor fluid status. (7) Peripheral artery disease: Code(s): I73.9 - Peripheral vascular disease, unspecified Status: Chronic Assessment and Plan: Stable. Continue current meds. (8) COPD (chronic obstructive pulmonary disease): Qualifiers: COPD type: unspecified COPD Qualified Code(s): J44.9 - Chronic obstructive pulmonary disease, unspecified Code(s): J44.9 - Chronic obstructive pulmonary disease, unspecified Status: Chronic Assessment and Plan: With acute exacerbation. Continue Albuterol. On Anoro inhaler treatment at home. Pulmonary following. Appreciate their input. Spiriva added. (9) Peptic ulcer disease: Code(s): K27.9 - Peptic ulcer, site unspecified, unspecified as acute or chronic, without hemorrhage or perforation Status: Acute Assessment and Plan: Guaiac positive stools. EGD showing antral erosions. Colonoscopy showing multiple large polyps some too large to remove; biopsy taken. Hemorhoids noted with stigmata of bleeding which could explain the positive guaiac. Will need to go back on Xarelto at some
[2020-09-09] MEDS: ACETAMINOPHEN 500 MG TABLET 1000 MG PO ×2 (13:55→21:34)
--- NOTE | 2020-09-09 15:51 | PM.PNNEP ---
Progress Note: A&P Assessment and Plan (1) KONRAD (acute kidney injury): Code(s): N17.9 - Acute kidney failure, unspecified Status: Acute Assessment and Plan: The patient has acute kidney injury. Urine electrolytes are not pre renal. Urine eosinophils are negative Renal ultrasound is negative for acute changes. patient is getting IV fluids. She is off antibiotics. Creatinine improved a bit more. Will stop the fluids because of the crackles and give her a dose of diuretics. (2) Diarrhea: Qualifiers: Diarrhea type: unspecified type Qualified Code(s): R19.7 - Diarrhea, unspecified Code(s): R19.7 - Diarrhea, unspecified Status: Acute Assessment and Plan: The patient had diarrhea before. This is improved. She is eating well. (3) Pneumonia: Qualifiers: Laterality: unspecified laterality Lung location: unspecified part of lung Pneumonia type: due to unspecified organism Qualified Code(s): J18.9 - Pneumonia, unspecified organism Code(s): J18.9 - Pneumonia, unspecified organism Status: Acute Assessment and Plan: The patient received antibiotic (4) Urinary retention: Code(s): R33.9 - Retention of urine, unspecified Status: Acute Assessment and Plan: The patient has a Khan catheter. urology is following (5) Hypertension: Code(s): I10 - Essential (primary) hypertension Status: Chronic Assessment and Plan: Blood pressure is well controlled (6) Atrial fibrillation: Code(s): I48.91 - Unspecified atrial fibrillation Status: Acute Assessment and Plan: Heart rate is well controlled (7) Anemia: Code(s): D64.9 - Anemia, unspecified Status: Chronic Assessment and Plan: Hemoglobin is a bit low. She has polyps on colonoscopy Subjective Date/time seen: 09/09/20 15:51 Interval history: Patient is awake. Eating and drinking fine. Moving around a little bit better lately. Making plenty of urine. A little more short of breath Exam Narrative: Exam Narrative: WDWN female in NAD skin no rash head ncat lungs few crackles at the bases cor reg no rub abd BS+ nontender and soft ext 1+ edema. Objective Data Vital Signs Vital Signs: Vital Signs - 24 hr 09/08/20 16:00 09/08/20 17:04 09/08/20 20:00 Temperature Pulse Rate 78 79 78 Respiratory Rate Blood Pressure Pulse Oximetry 09/08/20 21:14 09/08/20 21:37 09/09/20 00:00 Temperature 36.1 C L Pulse Rate 78 75 77 Respiratory Rate 18 20 Blood Pressure 125/76 Pulse Oximetry 96 09/09/20 01:00 09/09/20 03:13 09/09/20 04:00 Temperature Pulse Rate 83 70 73 Respiratory Rate 20 Blood Pressure Pulse Oximetry 94 09/09/20 04:28 09/09/20 08:00 09/09/20 08:53 Temperature 36.1 C L Pulse Rate 60 60 66 Respiratory Rate 20 Blood Pressure 100/48 L Pulse Oximetry 95 09/09/20 09:02 09/09/20 09:04 09/09/20 12:00 Temperature Pulse Rate 76 66 85 Respiratory Rate 20 20 Blood Pressure Pulse Oximetry 95 95 09/09/20 14:00 09/09/20 14:28 09/09/20 14:36 Temperature 35.6 C L Pulse Rate 87 76 80 Respiratory Rate 16 20 20 Blood Pressure 114/70 Pulse Oximetry 100 Intake/Output Intake/Output: Intake & Output 09/06/20 09/07/20 09/08/20 09/09/20 23:59 23:59 23:59 23:59 Intake Total 2650 3370 1560 1580 Output Total 1250 1700 1350 750 Balance 1400 1670 210 830 Meds/Results Medications: Active Medications Generic Name Dose Route Start Last Admin Trade Name Freq PRN Reason Stop Dose Admin Acetaminophen 1,000 mg 08/31/20 01:04 09/09/20 13:55 Acetaminophen 500 Mg Tablet PO 1,000 mg Q6H PRN Administration Mild Pain (1-10) Or Fever Albuterol 5 mg 08/30/20 20:00 09/09/20 14:27 Albuterol Sulfate Neb 2.5 Mg/0.5 Ml Inh INHALATION 5 mg Q6HRT GUCCI Administration Carvedilol 3.125 mg 08/31/20 0
[2020-09-09] MEDS: BUMETANIDE INJ 1 MG/4 ML VIAL IV PUSH (16:44)
[2020-09-09] MEDS: SIMVASTATIN 20 MG TABLET PO (21:34)
[2020-09-09 22:25] LABS: SARS-CoV-2 RNA PCR Negative
[2020-09-10] VITALS (17 sets, daily range): BP systolic 109–133; BP diastolic 56–89; PULSE 71–111; RESP 18–24; TEMP 36.2–36.7; O2SAT 92–99
[2020-09-10] MEDS: ALBUTEROL SULFATE NEB 2.5 MG/0.5 ML INH 5 MG INHALATION (03:14)
[2020-09-10] MEDS: LEVOTHYROXINE SODIUM 125 MCG TABLET PO (05:52)
[2020-09-10] MEDS: ACETAMINOPHEN 500 MG TABLET 1000 MG PO ×2 (05:52→17:44)
[2020-09-10] MEDS: HEPARIN SODIUM 5,000 UNITS/ML VIAL 5000 UNITS SUB-Q ×3 (05:52→21:36)
[2020-09-10 06:05] LABS: Hematocrit 26.8 % (37.0-47.0); Hemoglobin 7.9 g/dL (12.0-15.0); Mean Corpuscular HGB Conc 29.5 g/dl (32-36); Mean Corpuscular Hemoglobin 28.1 pg (26-34); Mean Corpuscular Volume 95.4 fl (80-100); Mean Platelet Volume 11.5 fl (7.4-10.4); Platelet Count Result 149 k/mm3 (150-375); Red Blood Count 2.81 M/mm3 (4.2-5.4); Red Cell Distribution Width 15.3 % (11.5-14.5); White Blood Count 6.6 K/mm3 (4.5-10.0)
[2020-09-10 06:15] LABS: Albumin Level 3.5 g/dL (3.5-5.1); Anion Gap 5 mmol/L (8-16); Blood Urea Nitrogen 36 mg/dL (7-17); Calcium 7.5 mg/dL (8.4-10.2); Carbon Dioxide 30 mmol/L (22-30); Chloride 108 mmol/L (98-107); Estimated CRCL calculation 19 ml/min; Estimated Glomerular Filt Rate 14; Glucose 84 mg/dL (65-105); Magnesium 1.5 mg/dL (1.6-2.3); Phosphorus 5.9 mg/dL (2.5-4.5); Potassium 4.4 mmol/L (3.4-5.0); Sodium 143 mmol/L (137-145)
--- NOTE | 2020-09-10 09:56 | PM.PNPUL ---
Progress Note: A&P Assessment and Plan (1) COPD (chronic obstructive pulmonary disease): Qualifiers: COPD type: unspecified COPD Qualified Code(s): J44.9 - Chronic obstructive pulmonary disease, unspecified Code(s): J44.9 - Chronic obstructive pulmonary disease, unspecified Status: Chronic Assessment and Plan: She appears lethargic with slightly labored breathing this morning. vitals are stable. - will order ABG, if within normal limits can go to SNF today - change albuterol to 2.5 mg Q6h from 5 mg - start ipratopium 0.5 mg Q6h - start pulmicort 0.5 mg Q6h - upon discharge d/c ipratropium and pulmicort and start Trelegy 100/62.5/25 mcg 1 puff daily - f/u with us in clinic in 2-4 weeks Subjective Date/time seen: 09/10/20 09:56 Interval history: 75 y/o obese female with history of severe COPD, RUL lung CA s/p resection, CHF, Afib complains of feeling unwell this morning. She appears slightly sleepy and lethargic, breathing is slightly labored by but able to speak and respond to commands. She denies chest pain, nausea or vomiting. Review of Systems Review of Systems: All systems reviewed & are unremarkable except as noted in HPI and below Exam Const: General: cooperative, healthy appearing, awake and lethargic Nutritional Appearance: obese Orientation/consciousness: oriented to person, oriented to place, oriented to time and patient oriented x3 Limitations: physical limitations HENMT: Head: normal to inspection Eyes: General: appearance normal, both eyes and all related structures Neck: Neck: trachea midline and supple Resp: Effort & Inspection: labored Auscultation: breath sounds absent and diminished lung sounds Cardio: Jugular venous distension: no JVD Rate: regular rate Rhythm: regular rhythm Heart sounds: S1 normal heart sound present and S2 normal heart sound present GI: Inspection: normal to inspection Auscultation: normal bowel sounds Skin: General skin exam: normal color and no rashes or lesions noted Neuro: General: oriented to person, oriented to place, oriented to time and patient oriented x3 Cognition (Neuro): normal cognition Speech: normal speech Psych: Appearance: grossly normal and well kempt Mental Status: mental status grossly normal Objective Data Vital Signs Vital Signs: Vital Signs - 24 hr 01/22/21 12:00 09/09/20 14:00 09/09/20 14:28 Temperature 35.6 C L Pulse Rate 85 87 76 Respiratory Rate 16 20 Blood Pressure 114/70 Pulse Oximetry 100 09/09/20 14:36 09/09/20 16:00 09/09/20 16:46 Temperature Pulse Rate 80 82 82 Respiratory Rate 20 Blood Pressure Pulse Oximetry 09/09/20 20:00 09/09/20 20:42 09/09/20 20:49 Temperature Pulse Rate 90 82 80 Respiratory Rate 20 20 Blood Pressure Pulse Oximetry 96 95 09/09/20 21:02 09/10/20 00:00 09/10/20 03:15 Temperature 36.0 C L Pulse Rate 83 84 94 Respiratory Rate 14 20 Blood Pressure 118/52 L Pulse Oximetry 92 09/10/20 03:17 09/10/20 03:20 09/10/20 04:00 Temperature Pulse Rate 94 88 84 Respiratory Rate 20 Blood Pressure Pulse Oximetry 97 09/10/20 08:00 Temperature 36.2 C L Pulse Rate 90 Respiratory Rate 18 Blood Pressure 109/64 Pulse Oximetry 96 Intake/Output Intake/Output: Intake & Output 09/07/20 09/08/20 09/09/20 09/10/20 23:59 23:59 23:59 23:59 Intake Total 3370 1560 2594 400 Output Total 1700 1350 1650 2100 Balance 1670 210 944 -1700 Meds/Results Medications: Active Medications Generic Name Dose Route Start Last Admin Trade Name Freq PRN Reason Stop Dose Admin Acetaminophen 1,000 mg 08/31/20 01:04 09/10/20 05:52 Acetaminophen 500 Mg Tablet PO 1,000 mg Q6H PRN Administration Mild Pain (1-10) Or Fever Albuterol 5 mg 08/30/20 20:00 09/10/20 03:14 Albuterol Sulfate Neb 2.5 Mg/0.5 Ml Inh INHALATION 5 mg Q6HRT GUCCI Administration Carvedilol 3.125 mg 08/31/20 01:05 09/09/20 16:46
[2020-09-10] MEDS: IPRATROPIUM BR 0.02% INH SOLN 0.5 MG/2.5 ML VIAL INHALATION ×2 (10:14→19:54)
[2020-09-10] MEDS: ALBUTEROL SULFATE NEB 2.5 MG/0.5 ML INH INHALATION ×2 (10:14→19:54)
[2020-09-10] MEDS: BUDESONIDE RESPULE NEB 0.5 MG/2 ML AMP INHALATION ×2 (10:14→19:54)
[2020-09-10] MEDS: ACIDOPHILUS/BULGARICUS CHEWABLE TABLET 1 TABLET PO ×2 (10:26→17:34)
[2020-09-10] MEDS: TAMSULOSIN HCL 0.4 MG CAPSULE PO (10:26)
[2020-09-10] MEDS: CYANOCOBALAMIN 1,000 MCG TABLET 1000 MCG PO (10:26)
[2020-09-10] MEDS: SERTRALINE HCL 25 MG TABLET PO (10:26)
[2020-09-10] MEDS: CHOLECALCIFEROL 1,000 UNITS TABLET 1000 UNITS PO (10:27)
[2020-09-10] MEDS: FERROUS SULFATE 324 MG TABLET PO ×2 (10:27→17:34)
[2020-09-10] MEDS: PREGABALIN (*CRX) 50 MG CAPSULE 200 MG PO ×2 (10:27→17:45)
[2020-09-10] MEDS: MAGNESIUM SULF 2 GM/WATER 50ML 2 GM/50 ML BAG IVPB (10:27)
[2020-09-10] MEDS: PENTOXIFYLLINE 400 MG TABCR PO ×2 (10:27→17:34)
[2020-09-10] MEDS: PANTOPRAZOLE 40 MG TABLET PO (10:27)
[2020-09-10] MEDS: carvediloL 3.125 MG TABLET PO ×2 (10:28→17:35)
--- NOTE | 2020-09-10 11:07 | PM.IMPN ---
Progress Note: A&P Assessment and Plan (1) KONRAD (acute kidney injury): Code(s): N17.9 - Acute kidney failure, unspecified Status: Acute Assessment and Plan: Suspect due to volume depletion but consider related to abx (AIN?). Urine eos negative. Renal US no acute findings. Complement normal. Lasix, Entresto held. Some evidence of fluid overload on 09/09 so IV fluids stopped and Bumex x 1 given with good UOP. Cr improved today. Follow. Consider repeating Bumex. (2) Acute hypercapnic respiratory failure: Code(s): J96.02 - Acute respiratory failure with hypercapnia Status: Acute Assessment and Plan: Patient had elevated pCO2 of 66 on admission. She was treated with BiPAP. Currently on albuterol. COVID-19 negative. Apnea link 09/03 incomplete; no AHI or RI documented. Hardware Designer adjusting BiPAP and O2 bleed in. Repeat apnea link 09/06 noted with RI and AHI 26 on room air. The apnea link 09/08 showing AHI and RI 9 on home unit with 4L bleed in. Medications and unit adjusted. Appreciate pulmonary input. ABG ordered for today and is pending (3) Pneumonia: Qualifiers: Laterality: unspecified laterality Lung location: unspecified part of lung Pneumonia type: due to unspecified organism Qualified Code(s): J18.9 - Pneumonia, unspecified organism Code(s): J18.9 - Pneumonia, unspecified organism Status: Acute Assessment and Plan: CT chest on admission showing a RML PNA. She was started on Levaquin, Vancomycin and Zosyn. Vanco/Zosyn were discontinued on 09/03 and started on IV Rocephin and oral doxycycline. Levaquin stopped after dose 5 on 09/04. Rocephin and Doxy stopped with last dose also on 09/04. No abx since 09/04/20. CXR 09/06 showing small amount of basilar atelectasis or pneumonia unchanged. No fevers and WBC remains normal. Continue to monitor. (4) Encephalopathy acute: Code(s): G93.40 - Encephalopathy, unspecified Status: Acute Assessment and Plan: Most likely metabolic encephalopathy felt to be multifactorial related to medication and CO2 retention. Some somnolence today. ABG ordered. (5) Congestive heart failure (CHF): Qualifiers: Heart failure chronicity: chronic Heart failure type: unspecified Qualified Code(s): I50.9 - Heart failure, unspecified Code(s): I50.9 - Heart failure, unspecified Status: Chronic Assessment and Plan: No Echo listed. Most likely systolic CHF. Euvolemic. Lasix and Entresto held given the elevated Cr. Tolerated Bumex. Resume home medications when renal function improves. Monitor fluid status. (6) Peripheral artery disease: Code(s): I73.9 - Peripheral vascular disease, unspecified Status: Chronic Assessment and Plan: Stable. Continue current meds. (7) COPD (chronic obstructive pulmonary disease): Qualifiers: COPD type: unspecified COPD Qualified Code(s): J44.9 - Chronic obstructive pulmonary disease, unspecified Code(s): J44.9 - Chronic obstructive pulmonary disease, unspecified Status: Chronic Assessment and Plan: With acute exacerbation. Continue Albuterol, Atrovent and Pulmicort. On Anoro inhaler treatment at home. Pulmonary following. Appreciate their input. (8) Peptic ulcer disease: Code(s): K27.9 - Peptic ulcer, site unspecified, unspecified as acute or chronic, without hemorrhage or perforation Status: Acute Assessment and Plan: Guaiac positive stools. EGD showing antral erosions. Colonoscopy showing multiple large polyps some too large to remove; biopsy taken. Hemorrhoids noted with stigmata of bleeding which could explain the positive guaiac. Will need to go back on Xarelto but on hold for now. Appreciate GI input. Nicole consulted for discussion about partial colectomy but patient not sure she could tolerate this. Continue Protonix. Further discussion
[2020-09-10 12:16] LABS: Alveolar/Arterial O2 Gradient 28.6 mmHg; Base Excess ABG -2.3 mEq/l (+/-2.0); Carboxyhemoglobin 0.3 % THb (0-2.0); Fractional Inspired Oxygen 24 %; HCO3 ABG 25.3 mEq/l (22.0-26.0); Methemoglobin ABG 0.1 %THb (0-1.5); Oxygen Content ABG 11.2 %vol (16.0-22.0); Oxygen Saturation ABG 90.8 % (95.0-100.0); Oxyhemoglobin 91.5 % THb (90.0-100.0); PO2 ABG 70.5 mmHg (80.0-100.0); PO2 FiO2 Ratio Arterial Blood 2.94 %; Reduced Hemoglobin 8.1 %THb (0-5.0); Total Hemoglobin 8.6 g/dL (12.0-18.0)
[2020-09-10 12:18] LABS: Device NASAL CANNULA; Modified Allen's Test Pass; PCO2 ABG 60.5 mmHg (35.0-45.0); Site Drawn LEFT RADIAL
--- NOTE | 2020-09-10 12:26 | PM.PNNEP ---
Progress Note: A&P Assessment and Plan (1) KONRAD (acute kidney injury): Code(s): N17.9 - Acute kidney failure, unspecified Status: Acute Assessment and Plan: The patient has acute kidney injury. Urine electrolytes are not pre renal. Urine eosinophils are negative Renal ultrasound is negative for acute changes. patient is getting IV fluids. She is off antibiotics. Creatinine dropped a tiny bit more to 3.2. (2) Diarrhea: Qualifiers: Diarrhea type: unspecified type Qualified Code(s): R19.7 - Diarrhea, unspecified Code(s): R19.7 - Diarrhea, unspecified Status: Acute Assessment and Plan: The patient had diarrhea before. This is improved. She is eating well. (3) Pneumonia: Qualifiers: Laterality: unspecified laterality Lung location: unspecified part of lung Pneumonia type: due to unspecified organism Qualified Code(s): J18.9 - Pneumonia, unspecified organism Code(s): J18.9 - Pneumonia, unspecified organism Status: Acute Assessment and Plan: The patient received antibiotics (4) Urinary retention: Code(s): R33.9 - Retention of urine, unspecified Status: Acute Assessment and Plan: The patient has a Khan catheter. urology is following (5) Hypertension: Code(s): I10 - Essential (primary) hypertension Status: Chronic Assessment and Plan: Blood pressure is well controlled (6) Atrial fibrillation: Code(s): I48.91 - Unspecified atrial fibrillation Status: Acute Assessment and Plan: Heart rate is well controlled (7) Anemia: Code(s): D64.9 - Anemia, unspecified Status: Chronic Assessment and Plan: Hemoglobin is a bit low. She has polyps on colonoscopy Subjective Date/time seen: 09/10/20 12:26 Interval history: Patient is awake now but she was falling asleep when I walked in the room. She did sleep well last night but she did use his biPAP machine. Eating and drinking fine. Exam Narrative: Exam Narrative: WDWN female in NAD skin no rash head ncat lungs few crackles at the bases cor reg no rub abd BS+ nontender and soft ext 1+ edema. Objective Data Vital Signs Vital Signs: Vital Signs - 24 hr 09/09/20 14:00 09/09/20 14:28 09/09/20 14:36 Temperature 35.6 C L Pulse Rate 87 76 80 Respiratory Rate 16 20 20 Blood Pressure 114/70 Pulse Oximetry 100 09/09/20 16:00 09/09/20 16:46 09/09/20 20:00 Temperature Pulse Rate 82 82 90 Respiratory Rate Blood Pressure Pulse Oximetry 09/09/20 20:42 09/09/20 20:49 09/09/20 21:02 Temperature 36.0 C L Pulse Rate 82 80 83 Respiratory Rate 20 20 14 Blood Pressure 118/52 L Pulse Oximetry 96 95 92 09/10/20 00:00 09/10/20 03:15 09/10/20 03:17 Temperature Pulse Rate 84 94 94 Respiratory Rate 20 Blood Pressure Pulse Oximetry 97 09/10/20 03:20 09/10/20 04:00 09/10/20 08:00 Temperature 36.2 C L Pulse Rate 88 84 88 Respiratory Rate 20 18 Blood Pressure 109/64 Pulse Oximetry 94 09/10/20 10:17 09/10/20 10:28 09/10/20 10:32 Temperature Pulse Rate 90 103 H 89 Respiratory Rate 20 20 Blood Pressure Pulse Oximetry 92 Intake/Output Intake/Output: Intake & Output 09/07/20 09/08/20 09/09/20 09/10/20 23:59 23:59 23:59 23:59 Intake Total 3370 1560 2594 910 Output Total 1700 1350 1650 2100 Balance 1670 210 944 -1190 Meds/Results Medications: Active Medications Generic Name Dose Route Start Last Admin Trade Name Freq PRN Reason Stop Dose Admin Acetaminophen 1,000 mg 08/31/20 01:04 09/10/20 05:52 Acetaminophen 500 Mg Tablet PO 1,000 mg Q6H PRN Administration Mild Pain (1-10) Or Fever Albuterol 2.5 mg 09/10/20 10:00 09/10/20 10:14 Albuterol Sulfate Neb 2.5 Mg/0.5 Ml Inh INHALATION 2.5 mg Q6HRT GUCCI Administration Budesonide 0.5 mg 09/10/20 10:00 09/10/20 10:14 Budesonide
--- NOTE | 2020-09-10 14:39 | PC.NURSE ---
Pt keeps removing Bipap. Pt educated on the need to keep it on for at least 3 hours. Timed ABG adjusted.
--- NOTE | 2020-09-10 16:13 | PC.NURSE ---
Sitting with patient, per MD request to ensure pt keeps Bipap on. Respiratory called to assist with machine. Pt finally resting.
[2020-09-10 18:08] LABS: Alveolar/Arterial O2 Gradient 45.4 mmHg; Base Excess ABG -2.7 mEq/l (+/-2.0); Device NASAL CANNULA; Fractional Inspired Oxygen 24 %; HCO3 ABG 24.4 mEq/l (22.0-26.0); Modified Allen's Test Pass; Oxygen Content ABG 11.1 %vol (16.0-22.0); Oxygen Saturation ABG 87.7 % (95.0-100.0); Oxyhemoglobin 88.2 % THb (90.0-100.0); PCO2 ABG 54.3 mmHg (35.0-45.0); PO2 ABG 61.1 mmHg (80.0-100.0); PO2 FiO2 Ratio Arterial Blood 2.55 %; Site Drawn LEFT RADIAL; Total Hemoglobin 8.9 g/dL (12.0-18.0)
--- NOTE | 2020-09-10 18:13 | PC.NURSE ---
Voicemail left for Dr. Montoya regarding critical ABG's. Criticals relayed to Dr. Mae.
--- NOTE | 2020-09-10 19:28 | PC.NURSE ---
Call to Dr. Montoya regarding us not being able to change the settings on a home trilogy machine. Instructions to bring up one of our Bipap machines. Respiratory called, stated they will bring one up.
--- NOTE | 2020-09-10 19:37 | PCRCNOTE ---
Window of time for administration has passed. See next scheduled administration.
--- NOTE | 2020-09-10 19:45 | PC.NURSE ---
Changes to Trilogy requested per Luca Weaver. RT notified by Brittny GALLEGO. Rt states unable to makes changes to home equipment. RT aware per Luca Weaver supply with facility bipap set to specified settings.
[2020-09-10] MEDS: SIMVASTATIN 20 MG TABLET PO (21:36)
--- NOTE | 2020-09-10 22:00 | PC.NURSE ---
Patient noted to have removed bipap. Was educated on need for apparatus. Continued to refuse use. O2 at 2L per nasal cannula placed on patient. Contact Representative notified. Again patient was educated of need for bipap. Alternate care was discussed as patient is DNR.
[2020-09-11] VITALS (26 sets, daily range): BP systolic 104–135; BP diastolic 49–95; PULSE 63–94; RESP 12–36; TEMP 36–36.6; O2SAT 91–100
[2020-09-11] MEDS: IPRATROPIUM BR 0.02% INH SOLN 0.5 MG/2.5 ML VIAL INHALATION ×4 (03:15→20:42)
[2020-09-11] MEDS: ALBUTEROL SULFATE NEB 2.5 MG/0.5 ML INH INHALATION ×4 (03:15→20:42)
[2020-09-11] MEDS: LEVOTHYROXINE SODIUM 125 MCG TABLET PO (06:07)
[2020-09-11] MEDS: HEPARIN SODIUM 5,000 UNITS/ML VIAL 5000 UNITS SUB-Q ×3 (06:11→22:23)
[2020-09-11 06:21] LABS: Hematocrit 25.2 % (37.0-47.0); Hemoglobin 7.6 g/dL (12.0-15.0); Mean Corpuscular HGB Conc 30.2 g/dl (32-36); Mean Platelet Volume 11.8 fl (7.4-10.4); Platelet Count Result 143 k/mm3 (150-375); Red Blood Count 2.71 M/mm3 (4.2-5.4); Red Cell Distribution Width 15.4 % (11.5-14.5); White Blood Count 7.4 K/mm3 (4.5-10.0)
[2020-09-11 06:43] LABS: Albumin Level 3.5 g/dL (3.5-5.1); Anion Gap 6 mmol/L (8-16); Blood Urea Nitrogen 38 mg/dL (7-17); Calcium 8.1 mg/dL (8.4-10.2); Carbon Dioxide 26 mmol/L (22-30); Chloride 111 mmol/L (98-107); Estimated CRCL calculation 22 ml/min; Estimated Glomerular Filt Rate 17; Glucose 95 mg/dL (65-105); Magnesium 1.7 mg/dL (1.6-2.3); Phosphorus 5.1 mg/dL (2.5-4.5); Potassium 4.5 mmol/L (3.4-5.0); Sodium 143 mmol/L (137-145)
[2020-09-11] MEDS: BUDESONIDE RESPULE NEB 0.5 MG/2 ML AMP INHALATION ×2 (09:29→20:43)
--- NOTE | 2020-09-11 10:50 | PM.PNPUL ---
Progress Note: A&P Assessment and Plan (1) COPD (chronic obstructive pulmonary disease): Qualifiers: COPD type: unspecified COPD Qualified Code(s): J44.9 - Chronic obstructive pulmonary disease, unspecified Code(s): J44.9 - Chronic obstructive pulmonary disease, unspecified Status: Chronic Assessment and Plan: She appears lethargic with slightly labored breathing this morning. vitals are stable. - continue albuterol to 2.5 mg Q6h from 5 mg - continue ipratopium 0.5 mg Q6h - continue pulmicort 0.5 mg Q6h - upon discharge d/c ipratropium and pulmicort and start Trelegy 100/62.5/25 mcg 1 puff daily - f/u with us in clinic in 2-4 weeks (2) Acute and chronic respiratory failure with hypercapnia: Code(s): J96.22 - Acute and chronic respiratory failure with hypercapnia Status: Chronic Assessment and Plan: - transfer to IMU for better monitoring - face mask changed from small to medium size - continue BIPAP 18/4 with backup rate of 18 and titrate FiO2 for sats of 92-96% - AM ABG postponed until this afternoon Subjective Date/time seen: 09/11/20 10:51 Interval history: Still a bit lethargic this morning. The patient was ripping off her face mask last night and pulled out her IV. Sats dropped to low 80's when she took off her face mask. ABG yesterday showed acute hypercapnic respiratory failure which confimed the clinical picture. She was put back on her BIPAP settings of 14/6 but repeat ABG showed no significant improvement. Her BIPAP settings were then changed to 18/4 but this has not been effectively implemented due to patient non compliance and small sized face mask causing obvious leak. Review of Systems Review of Systems: All systems reviewed & are unremarkable except as noted in HPI and below Exam Const: General: cooperative, healthy appearing, awake and lethargic Nutritional Appearance: obese Orientation/consciousness: oriented to person, oriented to place, oriented to time and patient oriented x3 Limitations: physical limitations HENMT: Head: normal to inspection Eyes: General: appearance normal, both eyes and all related structures Neck: Neck: trachea midline and supple Resp: Effort & Inspection: labored Auscultation: breath sounds absent and diminished lung sounds Cardio: Jugular venous distension: no JVD Rate: regular rate Rhythm: regular rhythm Heart sounds: S1 normal heart sound present and S2 normal heart sound present GI: Inspection: normal to inspection Auscultation: normal bowel sounds Skin: General skin exam: normal color and no rashes or lesions noted Neuro: General: oriented to person, oriented to place, oriented to time and patient oriented x3 Cognition (Neuro): normal cognition Speech: normal speech Psych: Appearance: grossly normal and well kempt Mental Status: mental status grossly normal Objective Data Vital Signs Vital Signs: Vital Signs - 24 hr 09/10/20 12:00 09/10/20 14:16 09/10/20 16:00 Temperature 36.7 C 36.6 C Pulse Rate 83 71 75 Respiratory Rate 20 20 Blood Pressure 122/56 L 116/71 Pulse Oximetry 93 09/10/20 17:35 09/10/20 19:54 09/10/20 20:00 Temperature Pulse Rate 84 85 91 Respiratory Rate 22 H Blood Pressure Pulse Oximetry 93 09/10/20 20:05 09/10/20 20:12 09/11/20 00:00 Temperature 36.7 C Pulse Rate 87 77 73 Respiratory Rate 24 H 18 Blood Pressure 133/89 Pulse Oximetry 99 09/11/20 03:15 09/11/20 03:24 09/11/20 04:17 Temperature Pulse Rate 77 78 80 Respiratory Rate 20 20 Blood Pressure Pulse Oximetry 09/11/20 06:18 09/11/20 08:00 09/11/20 08:55 Temperature 36.0 C L 36.2 C L Pulse Rate 93 86 84 Respiratory Rate 12 17 19 Blood Pressure 105/56 L 104/57 L Pulse Oximetry 93 99 92 09/11/20 09:29 09/11/20 09:49 Temperature Pulse Rate 84 86 Respiratory Rate 18 18 Blood Pressure Pulse Oximetry Intake/Output Intake/Output: Intake & Output 09/08
--- NOTE | 2020-09-11 10:55 | PM.IMPN ---
Progress Note: A&P Assessment and Plan (1) KONRAD (acute kidney injury): Code(s): N17.9 - Acute kidney failure, unspecified Status: Acute Assessment and Plan: Suspect due to volume depletion but consider related to abx (AIN?). Urine eos negative. Renal US no acute findings. Complement normal. Lasix, Entresto held. Some evidence of fluid overload on 09/09 so IV fluids stopped and Bumex x 1 given with good UOP. Cr improved over the past few days sown to 2.8 today. Follow. Appreciate nephrology input (2) Acute hypercapnic respiratory failure: Code(s): J96.02 - Acute respiratory failure with hypercapnia Status: Acute Assessment and Plan: Patient had elevated pCO2 of 66 on admission. She was treated with BiPAP. COVID-19 negative. Apnea link 09/03 incomplete; no AHI or RI documented. 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 Repeat apnea link 09/06 noted with RI and AHI 26 on room air. The apnea link 09/08 showing AHI and RI 9 on home unit with 4L bleed in. Currently on albuterol, atrovent and Pulmicort. Appreciate pulmonary input. Repeat ABG ordered with plans to move her to IMU. Will need sitter. Consider CT brain if no improvement (3) Pneumonia: Qualifiers: Laterality: unspecified laterality Lung location: unspecified part of lung Pneumonia type: due to unspecified organism Qualified Code(s): J18.9 - Pneumonia, unspecified organism Code(s): J18.9 - Pneumonia, unspecified organism Status: Acute Assessment and Plan: CT chest on admission showing a RML PNA. She was started on Levaquin, Vancomycin and Zosyn. Vanco/Zosyn were discontinued on 09/03 and started on IV Rocephin and oral doxycycline. Levaquin stopped after dose 5 on 09/04. Rocephin and Doxy stopped with last dose also on 09/04. No abx since 09/04/20. CXR 09/06 showing small amount of basilar atelectasis or pneumonia unchanged. No fevers and WBC remains normal. Continue to monitor. Repeat CXR (4) Encephalopathy acute: Code(s): G93.40 - Encephalopathy, unspecified Status: Acute Assessment and Plan: Most likely metabolic encephalopathy felt related to CO2 retention. More somnolent today. As above (5) Congestive heart failure (CHF): Qualifiers: Heart failure chronicity: chronic Heart failure type: unspecified Qualified Code(s): I50.9 - Heart failure, unspecified Code(s): I50.9 - Heart failure, unspecified Status: Chronic Assessment and Plan: No Echo listed. Most likely systolic CHF. Euvolemic. Lasix and Entresto held given the elevated Cr. Tolerated Bumex. Resume home medications when renal function improves. Monitor fluid status. (6) Peripheral artery disease: Code(s): I73.9 - Peripheral vascular disease, unspecified Status: Chronic Assessment and Plan: Stable. Continue current meds. (7) COPD (chronic obstructive pulmonary disease): Qualifiers: COPD type: unspecified COPD Qualified Code(s): J44.9 - Chronic obstructive pulmonary disease, unspecified Code(s): J44.9 - Chronic obstructive pulmonary disease, unspecified Status: Chronic Assessment and Plan: With acute exacerbation. Continue Albuterol, Atrovent and Pulmicort. On Anoro inhaler treatment at home. Pulmonary following. Appreciate their input. (8) Peptic ulcer disease: Code(s): K27.9 - Peptic ulcer, site unspecified, unspecified as acute or chronic, without hemorrhage or perforation Status: Acute Assessment and Plan: Guaiac positive stools. EGD showing antral erosions. Colonoscopy showing multiple large polyps some too large to remove; biopsy taken. Hemorrhoids noted with stigmata of bleeding which could explain the positive guaiac. Will need to go back on Xarelto but on hold for now. Appreciate GI input. Nicole consulted for discussion about partial colectomy but patient not sure
[2020-09-11] MEDS: PENTOXIFYLLINE 400 MG TABCR PO ×2 (10:58→16:41)
[2020-09-11] MEDS: TAMSULOSIN HCL 0.4 MG CAPSULE PO (10:58)
[2020-09-11] MEDS: SERTRALINE HCL 25 MG TABLET PO (10:58)
[2020-09-11] MEDS: PANTOPRAZOLE 40 MG TABLET PO (10:58)
[2020-09-11] MEDS: PREGABALIN (*CRX) 50 MG CAPSULE 200 MG PO ×2 (10:58→16:44)
[2020-09-11] MEDS: ACIDOPHILUS/BULGARICUS CHEWABLE TABLET 1 TABLET PO ×2 (10:58→16:42)
[2020-09-11] MEDS: CHOLECALCIFEROL 1,000 UNITS TABLET 1000 UNITS PO (10:59)
[2020-09-11] MEDS: FERROUS SULFATE 324 MG TABLET PO ×2 (10:59→16:41)
[2020-09-11] MEDS: carvediloL 3.125 MG TABLET PO ×2 (10:59→16:41)
[2020-09-11] MEDS: CYANOCOBALAMIN 1,000 MCG TABLET 1000 MCG PO (10:59)
--- NOTE | 2020-09-11 11:41 | PM.PNNEP ---
Progress Note: A&P Assessment and Plan (1) KONRAD (acute kidney injury): Code(s): N17.9 - Acute kidney failure, unspecified Status: Acute Assessment and Plan: The patient has acute kidney injury. Urine electrolytes are not pre renal. Urine eosinophils are negative Renal ultrasound is negative for acute changes. patient is off IV fluids. She is off antibiotics. Creatinine dropped To 2.8. Recovering from probable medication/infection related renal insufficiency. (2) Diarrhea: Qualifiers: Diarrhea type: unspecified type Qualified Code(s): R19.7 - Diarrhea, unspecified Code(s): R19.7 - Diarrhea, unspecified Status: Acute Assessment and Plan: The patient had diarrhea before. This is improved. She is eating well. (3) Pneumonia: Qualifiers: Laterality: unspecified laterality Lung location: unspecified part of lung Pneumonia type: due to unspecified organism Qualified Code(s): J18.9 - Pneumonia, unspecified organism Code(s): J18.9 - Pneumonia, unspecified organism Status: Acute Assessment and Plan: The patient received antibiotics (4) Urinary retention: Code(s): R33.9 - Retention of urine, unspecified Status: Acute Assessment and Plan: The patient has a Khan catheter. urology is following (5) Hypertension: Code(s): I10 - Essential (primary) hypertension Status: Chronic Assessment and Plan: Blood pressure is well controlled Systolic is 100-130 (6) Atrial fibrillation: Code(s): I48.91 - Unspecified atrial fibrillation Status: Acute Assessment and Plan: Heart rate is well controlled (7) Anemia: Code(s): D64.9 - Anemia, unspecified Status: Chronic Assessment and Plan: Hemoglobin is a bit low. She has polyps on colonoscopy Subjective Date/time seen: 09/11/20 11:41 Interval history: Patient is groggy today. On the CPAP mask. She kept pulling her CPAP mask on last night, hence her pCO2 has risen and now she is being transferred to the IM you Exam Narrative: Exam Narrative: WDWN female in NAD skin no rash head ncat lungs few crackles at the bases cor reg no rub abd BS+ nontender and soft ext 1+ edema. Objective Data Vital Signs Vital Signs: Vital Signs - 24 hr 09/10/20 12:00 09/10/20 14:16 09/10/20 16:00 Temperature 36.7 C 36.6 C Pulse Rate 83 71 75 Respiratory Rate 20 20 Blood Pressure 122/56 L 116/71 Pulse Oximetry 93 09/10/20 17:35 09/10/20 19:54 09/10/20 20:00 Temperature Pulse Rate 84 85 91 Respiratory Rate 22 H Blood Pressure Pulse Oximetry 93 09/10/20 20:05 09/10/20 20:12 09/11/20 00:00 Temperature 36.7 C Pulse Rate 87 77 73 Respiratory Rate 24 H 18 Blood Pressure 133/89 Pulse Oximetry 99 09/11/20 03:15 09/11/20 03:24 09/11/20 04:17 Temperature Pulse Rate 77 78 80 Respiratory Rate 20 20 Blood Pressure Pulse Oximetry 09/11/20 06:18 09/11/20 08:00 09/11/20 08:55 Temperature 36.0 C L 36.2 C L Pulse Rate 93 86 84 Respiratory Rate 12 17 19 Blood Pressure 105/56 L 104/57 L Pulse Oximetry 93 99 92 09/11/20 09:29 09/11/20 09:49 09/11/20 10:59 Temperature Pulse Rate 84 86 90 Respiratory Rate 18 18 Blood Pressure Pulse Oximetry Intake/Output Intake/Output: Intake & Output 09/08/20 09/09/20 09/10/20 09/11/20 23:59 23:59 23:59 23:59 Intake Total 1560 2594 1280 Output Total 1350 1650 2850 1150 Balance 210 944 -1570 -1150 Meds/Results Medications: Active Medications Generic Name Dose Route Start Last Admin Trade Name Desirae PRN Reason Stop Dose Admin Acetaminophen 1,000 mg 08/31/20 01:04 09/10/20 17:44 Acetaminophen 500 Mg Tablet PO 1,000 mg Q6H PRN Administration Mild Pain (1-10) Or Fever Albuterol 2.5 mg 09/10/20 10:00 09/11/20 09:29 Albuterol Sulfate Neb 2.5 Mg/0.5 Ml Inh INHALATION 2.5 mg
--- NOTE | 2020-09-11 12:04 | PCDIET ---
This patient, Valorie Harris, was received from [facility] on 09/11/20 at 1204. Patient/family oriented to unit policies and routines
--- NOTE | 2020-09-11 12:15 | PC.NURSE ---
Report given to IMU nurse. Pt transported downstairs.
--- NOTE | 2020-09-11 12:21 | PCPTNOTE ---
Patient transferred to IMU from [facility]...patient having trouble breathing, won't keep her bi-pap on, and has been pulling her IV's out...spoke with nursing, patient not appropriate for treatment today...will check tomorrow
--- NOTE | 2020-09-11 12:22 | PC.NURSE ---
Pt need for transfer to IMU. Pt not keeping Bipap on, ABG's not stable. MD would like closer eyes on her, and we cannot keep her on a continuous Bipap.
--- NOTE | 2020-09-11 12:24 | PCOTNOTE ---
Patient transferred to IMU from [facility]. Patient is having trouble breathing, won't keep her bi-pap on, and has been pulling her IV's out. Spoke with nursing, patient not appropriate for treatment today due to behaviors. Will check tomorrow
[2020-09-11 14:03] LABS: Alveolar/Arterial O2 Gradient 111.1 mmHg; Base Excess ABG -2.7 mEq/l (+/-2.0); Carboxyhemoglobin 0.3 % THb (0-2.0); Fractional Inspired Oxygen 36 %; HCO3 ABG 24.3 mEq/l (22.0-26.0); Methemoglobin ABG 0.3 %THb (0-1.5); Oxygen Content ABG 11.3 %vol (16.0-22.0); Oxygen Saturation ABG 94.7 % (95.0-100.0); Oxyhemoglobin 93.5 % THb (90.0-100.0); PCO2 ABG 53.6 mmHg (35.0-45.0); PO2 ABG 83.4 mmHg (80.0-100.0); PO2 FiO2 Ratio Arterial Blood 2.32 %; Reduced Hemoglobin 5.9 %THb (0-5.0); Total Hemoglobin 8.5 g/dL (12.0-18.0)
[2020-09-11 14:06] LABS: pH ABG 7.274 (7.350-7.450)
[2020-09-11 14:07] LABS: Device NON-INVASIVE VENT; Modified Allen's Test Pass; Site Drawn RIGHT RADIAL
[2020-09-11 14:08] LABS: Non-Invasive Expiratory Pressure 4 CMH2O; Non-Invasive Inspiratory Pressure 18 CMH2O; Non-Invasive Vent Rate 18 /MIN
[2020-09-11] MEDS: ACETAMINOPHEN 500 MG TABLET 1000 MG PO ×2 (14:50→23:15)
[2020-09-11] MEDS: SIMVASTATIN 20 MG TABLET PO (22:23)
[2020-09-12] VITALS (29 sets, daily range): BP systolic 103–154; BP diastolic 54–77; PULSE 73–106; RESP 18–27; TEMP 35.9–36.3; O2SAT 91–99
--- NOTE | 2020-09-12 | ECHO_ITS ---
Patient Info Name: Valorie Harris Age: 75 years : 1945 Gender: Female Ht: 66 in Wt: 268 lbs BSA: 2.44 m2 HR: 84 bpm BP: 122 / 54 mmHg Heart Rhythm: Sinus Rhythm Technical Quality: Good Exam Date: 09/12/2020 1:43 PM Exam Location: [facility] Patient Status: Inpatient Admit Date: 08/30/2020 Staff Ordering Physician: Rhys Mae MD Maintenance Helper: Pierre Pearson RDCS Attending Provider: Rhys Mae MD Exam Type: CA echo doppler color flow Study Info Indications R06.02 - Shortness of breath Complete two-dimensional, color flow and Doppler transthoracic echocardiogram is performed. History/Risk Factors Shortness of breath; PNA, acute respiratory failure, CHF w/ BNP 2240, COPD, HTN. Summary 1. Complete two-dimensional, color flow and Doppler transthoracic echocardiogram is performed. 2. No subcostal images as patient became uncooperative. 3. Left ventricular chamber dimension is normal. 4. Left ventricular systolic function is normal, estimated at 60-65%. 5. There is mildly increased left ventricular wall thickness. 6. The left ventricular diastolic function is abnormal. 7. E/e' 14 is mildly elevated. 8. Left atrial chamber dimension is severely enlarged. 9. Right atrial chamber dimension is mildly enlarged. 10. There is mild aortic valve sclerosis. 11. The mitral valve has moderately calcified annulus. 12. There is mild mitral valve regurgitation. 13. Moderate pulmonary hypertension, estimated pulmonary arterial systolic pressure is 53 mmHg. Left Ventricle No subcostal images as patient became uncooperative. E/e' 14 is mildly elevated. Left ventricular chamber dimension is normal. Left ventricular systolic function is normal, estimated at 60-65%. There is mildly increased left ventricular wall thickness. The left ventricular diastolic function is abnormal. Right Ventricle Right ventricular chamber dimension is normal. Right ventricular systolic function is normal. Left Atria Left atrial chamber dimension is severely enlarged. Right Atria Right atrial chamber dimension is mildly enlarged. Aortic Valve The aortic valve is trileaflet. There is mild aortic valve sclerosis. There is no aortic valve stenosis. There is no aortic valve regurgitation. Pulmonic Valve There is no pulmonic regurgitation. Mitral Valve The mitral valve has moderately calcified annulus. There is no mitral valve stenosis. There is mild mitral valve regurgitation. Tricuspid Valve There is no tricuspid valve regurgitation. Moderate pulmonary hypertension, estimated pulmonary arterial systolic pressure is 53 mmHg. Pericardium/Pleural There is no pericardial effusion. Aorta The aortic root size at the sinus of Valsalva is not well visualized. Left Ventricular Outflow Tract Name Value Normal LVOT Doppler LVOT Peak Gradient 8 mmHg LVOT Mean Gradient 3 mmHg LVOT VTI 26 cm LVOT VTI/AV VTI Ratio 0.7 Mitral Valve Name Value Normal
[2020-09-12] MEDS: ALBUTEROL SULFATE NEB 2.5 MG/0.5 ML INH INHALATION ×4 (02:45→20:02)
[2020-09-12] MEDS: IPRATROPIUM BR 0.02% INH SOLN 0.5 MG/2.5 ML VIAL INHALATION ×4 (02:45→20:01)
[2020-09-12 05:02] LABS: Basophils Percent Auto 0.4 % (0.2-1.2); Eosinophils Absolute Auto 0.1 K/mm3 (0-0.3); Eosinophils Percent Auto 0.7 % (0-4.4); Immature Granulocyte Absolute 0.05 K/mm3 (0.00-0.031); Immature Granulocyte Percent A 0.7 % (0-0.5); Lymphocytes Absolute Auto 0.67 K/mm3 (0.9-3.2); Lymphocytes Percent Auto 9.3 % (18.3-44.2); Mean Corpuscular HGB Conc 29.6 g/dl (32-36); Mean Corpuscular Hemoglobin 27.8 pg (26-34); Mean Corpuscular Volume 93.8 fl (80-100); Mean Platelet Volume 11.9 fl (7.4-10.4); Monocytes Absolute Auto 0.5 K/mm3 (0.1-0.6); Monocytes Percent Auto 6.2 % (2.6-8.5); Neutrophils Percent Auto 82.7 % (45.5-73.1); Platelet Count Result 145 k/mm3 (150-375); Red Blood Count 2.88 M/mm3 (4.2-5.4); Red Cell Distribution Width 15.5 % (11.5-14.5); White Blood Count 7.2 K/mm3 (4.5-10.0)
[2020-09-12 05:20] LABS: Ammonia < 9 umol/L (9-30)
[2020-09-12 05:23] LABS: Hypochromasia 1+ (NORMAL); Platelet Estimate Adequate (Adequate); Stomatocytes 1+ (NORMAL)
[2020-09-12 05:26] LABS: Alanine Aminotransferase 11 U/L (4-35); Albumin Level 3.4 g/dL (3.5-5.1); Alkaline Phosphatase 85 U/L (38-126); Anion Gap 9 mmol/L (8-16); Aspartate Amino Transferase 15 U/L (14-36); Bilirubin,Total 0.4 mg/dL (0.2-1.3); Blood Urea Nitrogen 35 mg/dL (7-17); Calcium 8.3 mg/dL (8.4-10.2); Carbon Dioxide 26 mmol/L (22-30); Chloride 110 mmol/L (98-107); Estimated CRCL calculation 23 ml/min; Estimated Glomerular Filt Rate 18; Glucose 91 mg/dL (65-105); Magnesium 1.6 mg/dL (1.6-2.3); Potassium 4.3 mmol/L (3.4-5.0); Sodium 145 mmol/L (137-145)
[2020-09-12] MEDS: HEPARIN SODIUM 5,000 UNITS/ML VIAL 5000 UNITS SUB-Q ×3 (05:35→20:42)
[2020-09-12 05:54] LABS: CRP 12.2 mg/dL (<1.0)
[2020-09-12 07:39] LABS: Alveolar/Arterial O2 Gradient 67.8 mmHg; Base Excess ABG -1.8 mEq/l (+/-2.0); Carboxyhemoglobin 0.3 % THb (0-2.0); Fractional Inspired Oxygen 30 %; HCO3 ABG 25.1 mEq/l (22.0-26.0); Methemoglobin ABG 0.3 %THb (0-1.5); Oxygen Content ABG 11.9 %vol (16.0-22.0); Oxygen Saturation ABG 94.7 % (95.0-100.0); Oxyhemoglobin 93.8 % THb (90.0-100.0); PCO2 ABG 54.1 mmHg (35.0-45.0); PO2 ABG 82.5 mmHg (80.0-100.0); PO2 FiO2 Ratio Arterial Blood 2.75 %; Reduced Hemoglobin 5.6 %THb (0-5.0); Total Hemoglobin 8.9 g/dL (12.0-18.0)
[2020-09-12 07:40] LABS: pH ABG 7.285 (7.350-7.450)
[2020-09-12 07:41] LABS: Device NON-INVASIVE VENT; Site Drawn RIGHT BRACHIAL
[2020-09-12 07:42] LABS: Non-Invasive Expiratory Pressure 4 CMH2O; Non-Invasive Inspiratory Pressure 18 CMH2O; Non-Invasive Vent Rate 18 /MIN
--- NOTE | 2020-09-12 08:11 | PCOTNOTE ---
Attempted OT treatment this AM, per RN hold therapy for morning due to bipap needs and increased confusion. will attempt in afternoon.
[2020-09-12] MEDS: PENTOXIFYLLINE 400 MG TABCR PO ×2 (09:00→17:33)
[2020-09-12] MEDS: ACETAMINOPHEN 500 MG TABLET 1000 MG PO ×2 (09:00→17:32)
[2020-09-12] MEDS: CYANOCOBALAMIN 1,000 MCG TABLET 1000 MCG PO (09:00)
[2020-09-12] MEDS: carvediloL 3.125 MG TABLET PO ×2 (09:03→20:43)
[2020-09-12] MEDS: PREGABALIN (*CRX) 50 MG CAPSULE 200 MG PO ×2 (09:04→20:43)
[2020-09-12] MEDS: FERROUS SULFATE 324 MG TABLET PO ×2 (09:05→17:34)
[2020-09-12] MEDS: SERTRALINE HCL 25 MG TABLET PO (09:05)
[2020-09-12] MEDS: PANTOPRAZOLE 40 MG TABLET PO (09:05)
[2020-09-12] MEDS: CHOLECALCIFEROL 1,000 UNITS TABLET 1000 UNITS PO (09:05)
[2020-09-12] MEDS: TAMSULOSIN HCL 0.4 MG CAPSULE PO (09:05)
[2020-09-12] MEDS: ACIDOPHILUS/BULGARICUS CHEWABLE TABLET 1 TABLET PO ×2 (09:06→17:34)
[2020-09-12] MEDS: BUDESONIDE RESPULE NEB 0.5 MG/2 ML AMP INHALATION (09:12)
--- NOTE | 2020-09-12 09:50 | PCPTNOTE ---
Checked with nursing this AM on status of patient, continue to hold PT at this time secondary to increased O2 needs. Will check back tomorrow.
--- NOTE | 2020-09-12 10:30 | PM.PNPUL ---
Progress Note: A&P Assessment and Plan (1) COPD (chronic obstructive pulmonary disease): Qualifiers: COPD type: unspecified COPD Qualified Code(s): J44.9 - Chronic obstructive pulmonary disease, unspecified Code(s): J44.9 - Chronic obstructive pulmonary disease, unspecified Status: Chronic Assessment and Plan: She appears lethargic with slightly labored breathing this morning. vitals are stable. - continue albuterol to 2.5 mg Q6h from 5 mg - continue ipratopium 0.5 mg Q6h - increase pulmicort 1.0 mg Q12h - upon discharge d/c ipratropium and pulmicort and start Trelegy 100/62.5/25 mcg 1 puff daily - f/u with us in clinic in 2-4 weeks (2) Acute and chronic respiratory failure with hypercapnia: Code(s): J96.22 - Acute and chronic respiratory failure with hypercapnia Status: Chronic Assessment and Plan: Due to COPD exacerbation - face mask changed from small to medium size - BIPAP increased to 20/4 with backup rate of 18 and titrate FiO2 for sats of 92-96% - daily AM ABGs until normalized. - will need NIV at home upon discharge with outpatient sleep study (3) COPD exacerbation: Code(s): J44.1 - Chronic obstructive pulmonary disease with (acute) exacerbation Status: Acute Assessment and Plan: Will add Solumedrol 60 mg IV Q6h today. Subjective Date/time seen: 09/12/20 10:31 Interval history: She is slightly sleepy but awakens and follows commands on voice. GCS is 14 and is unchanged. This is all likely due to moderate CO2 retention from hypercapnic respiratory failure. She still has significant bronchospasm from COPD exacerbation. Today I will add IV systemic steroids to her inhaler regimen. Review of Systems Review of Systems: All systems reviewed & are unremarkable except as noted in HPI and below Exam Const: General: cooperative, healthy appearing, awake and lethargic Nutritional Appearance: obese Orientation/consciousness: oriented to person, oriented to place, oriented to time and patient oriented x3 Limitations: physical limitations HENMT: Head: normal to inspection Eyes: General: appearance normal, both eyes and all related structures Neck: Neck: trachea midline and supple Resp: Effort & Inspection: labored Auscultation: breath sounds absent and diminished lung sounds Cardio: Jugular venous distension: no JVD Rate: regular rate Rhythm: regular rhythm Heart sounds: S1 normal heart sound present and S2 normal heart sound present GI: Inspection: normal to inspection Auscultation: normal bowel sounds Skin: General skin exam: normal color and no rashes or lesions noted Neuro: General: oriented to person, oriented to place, oriented to time and patient oriented x3 Cognition (Neuro): normal cognition Speech: normal speech Psych: Appearance: grossly normal and well kempt Mental Status: mental status grossly normal Objective Data Vital Signs Vital Signs: Vital Signs - 24 hr 09/11/20 10:59 09/11/20 12:00 09/11/20 12:15 Temperature 36.6 C Pulse Rate 90 85 Respiratory Rate 32 H Blood Pressure 126/49 L Pulse Oximetry 97 95 09/11/20 13:15 09/11/20 14:00 09/11/20 15:29 Temperature Pulse Rate 88 82 77 Respiratory Rate 19 23 H Blood Pressure Pulse Oximetry 94 09/11/20 16:00 09/11/20 16:41 09/11/20 16:50 Temperature 36.1 C L Pulse Rate 75 78 Respiratory Rate 36 H Blood Pressure 112/95 H Pulse Oximetry 91 99 09/11/20 17:25 09/11/20 18:00 09/11/20 20:00 Temperature 36.4 C Pulse Rate 72 65 75 Respiratory Rate 21 H 18 Blood Pressure 135/65 Pulse Oximetry 100 91 09/11/20 20:46 09/11/20 20:50 09/11/20 20:51 Temperature Pulse Rate 94 79 79 Respiratory Rate 18 18 18 Blood Pressure Pulse Oximetry 91 91 09/11/20 20:57 09/11/20 22:00 09/12/20 00:00 Temperature 36.2 C L Pulse Rate 75 94 91 Respiratory Rate 18 22 H Blood Pressure 133/77 Pulse Oximetry 96 09/12/20
--- NOTE | 2020-09-12 11:04 | PM.IMPN ---
Progress Note: A&P Assessment and Plan (1) KONRAD (acute kidney injury): Code(s): N17.9 - Acute kidney failure, unspecified Status: Acute Assessment and Plan: Suspect due to volume depletion but consider related to abx (AIN?). Urine eos negative. Renal US no acute findings. Complement normal. Lasix, Entresto held and low dose IV fluids started. Some evidence of fluid overload on 09/09 so IV fluids stopped and Bumex x 1 given with good UOP. Cr improving slowly over the past few days sown to 2.6 today. Follow. Appreciate nephrology input. Consider repeating Bumex. (2) Acute hypercapnic respiratory failure: Code(s): J96.02 - Acute respiratory failure with hypercapnia Status: Acute Assessment and Plan: Patient brought in for weakness and confusion and had elevated pCO2 of 66 on admission. She was treated with BiPAP. COVID-19 negative. Apnea link 09/03 incomplete; no AHI or RI documented. 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 Repeat apnea link 09/06 noted with RI and AHI 26 on room air. The apnea link 09/08 showing AHI and RI 9 on home unit with 4L bleed in. Currently on albuterol, atrovent and Pulmicort. pH 7.29 now with improvement in the pCO2 at 54. Still confused. BiPAP adjustments per pulmonary. Lupe is a DNR. Appreciate pulmonary input. (3) Pneumonia: Qualifiers: Laterality: unspecified laterality Lung location: unspecified part of lung Pneumonia type: due to unspecified organism Qualified Code(s): J18.9 - Pneumonia, unspecified organism Code(s): J18.9 - Pneumonia, unspecified organism Status: Acute Assessment and Plan: CT chest on admission showing a RML PNA. She was started on Levaquin, Vancomycin and Zosyn. Vanco/Zosyn were discontinued on 09/03 and started on IV Rocephin and oral doxycycline. Levaquin stopped after dose 5 on 09/04. Rocephin and Doxy stopped with last dose also on 09/04. No abx since 09/04/20. CXR 09/11 reviewed showing airspace opacities of the lung bases and left midlung zone. No fevers and WBC remains normal. Continue to monitor off abx. (4) Encephalopathy acute: Code(s): G93.40 - Encephalopathy, unspecified Status: Acute Assessment and Plan: Most likely metabolic encephalopathy felt related to CO2 retention. Similar to her initial presentation. Some improvement today. Consider CT brain if able to come off the bipap. (5) Congestive heart failure (CHF): Qualifiers: Heart failure chronicity: chronic Heart failure type: unspecified Qualified Code(s): I50.9 - Heart failure, unspecified Code(s): I50.9 - Heart failure, unspecified Status: Chronic Assessment and Plan: No Echo listed. Most likely systolic CHF. Euvolemic. Lasix and Entresto held given the elevated Cr. Tolerated Bumex. Resume home medications when renal function improves. Check Echo. Monitor fluid status. Bumex x1. (6) Peripheral artery disease: Code(s): I73.9 - Peripheral vascular disease, unspecified Status: Chronic Assessment and Plan: Stable. Continue current meds. (7) COPD (chronic obstructive pulmonary disease): Qualifiers: COPD type: unspecified COPD Qualified Code(s): J44.9 - Chronic obstructive pulmonary disease, unspecified Code(s): J44.9 - Chronic obstructive pulmonary disease, unspecified Status: Chronic Assessment and Plan: With acute exacerbation. Continue Albuterol, Atrovent and Pulmicort. On Anoro inhaler treatment at home. Pulmonary following. Appreciate their input. Meds to be adjusted at discharge (see pulmonary note) (8) Peptic ulcer disease: Code(s): K27.9 - Peptic ulcer, site unspecified, unspecified as acute or chronic, without hemorrhage or perforation Status: Acute Assessment and Plan: Guaiac positive stools. EGD showing antral erosions. Colonoscopy showing multiple larg
[2020-09-12] MEDS: methylPREDNISolone SOD SUCC 125 MG VIAL 60 MG IV PUSH ×2 (11:46→17:33)
[2020-09-12] MEDS: MAGNESIUM SULF 1 GM/D5W 100 ML 1 GM/100 ML BAG IVPB (12:55)
[2020-09-12] MEDS: BUMETANIDE INJ 1 MG/4 ML VIAL IV PUSH (12:55)
--- NOTE | 2020-09-12 13:13 | PM.PNNEP ---
Progress Note: A&P Assessment and Plan (1) KONRAD (acute kidney injury): Code(s): N17.9 - Acute kidney failure, unspecified Status: Acute Assessment and Plan: suspect due to medication effect versus infection creatinine is slowly improving evaluation to date: - urine electrolytes are not pre renal. - urine eosinophils are negative - renal ultrasound is negative for acute changes follow trend of repeat labs and UOP (2) Diarrhea: Qualifiers: Diarrhea type: unspecified type Qualified Code(s): R19.7 - Diarrhea, unspecified Code(s): R19.7 - Diarrhea, unspecified Status: Acute Assessment and Plan: doing better continue supportive therapy (3) Pneumonia: Qualifiers: Laterality: unspecified laterality Lung location: unspecified part of lung Pneumonia type: due to unspecified organism Qualified Code(s): J18.9 - Pneumonia, unspecified organism Code(s): J18.9 - Pneumonia, unspecified organism Status: Acute Assessment and Plan: follow cultures on antibiotics (4) Urinary retention: Code(s): R33.9 - Retention of urine, unspecified Status: Acute Assessment and Plan: sevilla catheter in place Urology following (5) Hypertension: Code(s): I10 - Essential (primary) hypertension Status: Chronic Assessment and Plan: well controlled at this time follow trend of hemodynamics (6) Anemia: Code(s): D64.9 - Anemia, unspecified Status: Chronic Assessment and Plan: due to KONRAD and acute illness(?) follow trend of H/H Will continue to follow. Subjective Date/time seen: 09/12/20 13:13 She is sleepy but awakens with stimulation and follows commands although has a tendency to fall back a sleep; some reported confusion earlier in the day as well; no apparent distress noted. Exam Narrative: Exam Narrative: General: WD/WN male/female in NAD but sleepy Heart: normal S1 and S2; no rub Lungs: coarse with a few crackles at the bases Abdomen: soft, nontender, nondistended, positive bowel sounds Extremities: no cyanosis or clubbing; 1+ edema Skin: warm and dry Objective Data Vital Signs Vital Signs: Vital Signs Temp Pulse Resp BP Pulse Ox 09/12/20 11:47 36.3 C L 77 18 122/54 L 93 09/12/20 11:10 78 21 H 97 09/12/20 09:20 83 20 09/12/20 09:10 78 20 09/12/20 09:03 103 H 09/12/20 07:59 36.1 C L 85 24 H 154/77 H 99 09/12/20 07:30 96 18 94 09/12/20 05:58 97 09/12/20 04:00 36.3 C L 79 22 H 134/72 91 09/12/20 02:50 97 21 H 94 09/12/20 02:48 97 21 H 09/12/20 02:00 97 09/12/20 00:00 36.2 C L 91 22 H 133/77 96 09/11/20 22:00 94 09/11/20 20:57 75 18 09/11/20 20:51 79 18 91 09/11/20 20:50 79 18 09/11/20 20:46 94 18 91 09/11/20 20:00 36.4 C 75 18 135/65 91 Intake/Output Intake/Output: Intake & Output 09/09/20 09/10/20 09/11/20 09/12/20 23:59 23:59 23:59 23:59 Intake Total 2594 1280 Output Total 1650 2850 1375 450 Balance 944 -1570 -1375 -450 Meds/Results Medications: Active Medications Generic Name Dose Route Start Last Admin Trade Name Desirae PRN Reason Stop Dose Admin Acetaminophen 1,000 mg 08/31/20 01:04 09/12/20 17:32 Acetaminophen 500 Mg Tablet PO 1,000 mg Q6H PRN Administration Mild Pain (1-10) Or Fever Albuterol 2.5 mg 09/10/20 10:00 09/12/20 14:44 Albuterol Sulfate Neb 2.5 Mg/0.5 Ml Inh INHALATION 2.5 mg Q6HRT GUCCI Administration Budesonide 1 mg 09/12/20 20:00 Budesonide Respule Neb 0.5 Mg/2 Ml Amp INHALATION Q12HRT [facility] Carvedilol 3.125 mg 09/12/20 21:00 Carvedilol 3.125 Mg Tablet PO Q12HR [facility] Cyanocobalamin 1,000 mcg 08/31/20 09:00 09/12/20 09:00 Cyanocobalamin 1,000 Mcg Tablet PO 1,000 [facility] [place] Administration Digoxin 125 mcg 0
[2020-09-12] MEDS: BUDESONIDE RESPULE NEB 0.5 MG/2 ML AMP 1 MG INHALATION (20:01)
[2020-09-12] MEDS: LOPERAMIDE HCL 2 MG CAPSULE PO (20:43)
[2020-09-12] MEDS: SIMVASTATIN 20 MG TABLET PO (20:43)
[2020-09-13] VITALS (26 sets, daily range): BP systolic 122–139; BP diastolic 52–69; PULSE 72–110; RESP 18–26; TEMP 35.7–36.4; O2SAT 93–100; BMI 43.2
[2020-09-13] MEDS: IPRATROPIUM BR 0.02% INH SOLN 0.5 MG/2.5 ML VIAL INHALATION ×3 (02:14→20:49)
[2020-09-13] MEDS: ALBUTEROL SULFATE NEB 2.5 MG/0.5 ML INH INHALATION ×3 (02:14→20:49)
[2020-09-13 05:28] LABS: Hematocrit 26.2 % (37.0-47.0); Hemoglobin 7.7 g/dL (12.0-15.0); Mean Corpuscular HGB Conc 29.4 g/dl (32-36); Mean Corpuscular Hemoglobin 27.4 pg (26-34); Mean Corpuscular Volume 93.2 fl (80-100); Mean Platelet Volume 12.1 fl (7.4-10.4); Platelet Count Result 152 k/mm3 (150-375); Red Blood Count 2.81 M/mm3 (4.2-5.4); Red Cell Distribution Width 15.6 % (11.5-14.5); White Blood Count 3.9 K/mm3 (4.5-10.0)
[2020-09-13] MEDS: methylPREDNISolone SOD SUCC 125 MG VIAL 60 MG IV PUSH ×5 (05:36→23:21)
[2020-09-13] MEDS: LEVOTHYROXINE SODIUM 125 MCG TABLET PO (05:37)
[2020-09-13] MEDS: HEPARIN SODIUM 5,000 UNITS/ML VIAL 5000 UNITS SUB-Q ×3 (05:37→20:24)
[2020-09-13] MEDS: ACETAMINOPHEN 500 MG TABLET 1000 MG PO ×2 (05:37→20:27)
[2020-09-13 05:48] LABS: Albumin Level 3.5 g/dL (3.5-5.1); Anion Gap 10 mmol/L (8-16); Blood Urea Nitrogen 39 mg/dL (7-17); Calcium 8.7 mg/dL (8.4-10.2); Carbon Dioxide 26 mmol/L (22-30); Chloride 112 mmol/L (98-107); Estimated CRCL calculation 24 ml/min; Estimated Glomerular Filt Rate 19; Glucose 113 mg/dL (65-105); Magnesium 1.8 mg/dL (1.6-2.3); Phosphorus 5.2 mg/dL (2.5-4.5); Potassium 4.4 mmol/L (3.4-5.0); Sodium 148 mmol/L (137-145)
[2020-09-13] MEDS: BUDESONIDE RESPULE NEB 0.5 MG/2 ML AMP 1 MG INHALATION ×2 (08:27→20:49)
[2020-09-13 09:40] LABS: Alveolar/Arterial O2 Gradient 119.2 mmHg; Base Excess ABG -3.5 mEq/l (+/-2.0); Fractional Inspired Oxygen 40 %; HCO3 ABG 22.5 mEq/l (22.0-26.0); Oxygen Content ABG 12.3 %vol (16.0-22.0); Oxygen Saturation ABG 97.8 % (95.0-100.0); Oxyhemoglobin 96.2 % THb (90.0-100.0); PCO2 ABG 45.1 mmHg (35.0-45.0); PO2 ABG 114.1 mmHg (80.0-100.0); PO2 FiO2 Ratio Arterial Blood 2.85 %; Total Hemoglobin 8.9 g/dL (12.0-18.0); pH ABG 7.316 (7.350-7.450)
[2020-09-13 09:42] LABS: Device NON-INVASIVE VENT; Modified Allen's Test Pass; Site Drawn RIGHT RADIAL
[2020-09-13 09:43] LABS: Non-Invasive Expiratory Pressure 4 CMH2O; Non-Invasive Inspiratory Pressure 20 CMH2O; Non-Invasive Vent Rate 18 /MIN
--- NOTE | 2020-09-13 10:21 | PCOTNOTE ---
Per RN, ABG repeated and improved and RN will be attempting to place patient on O2 during lunch. RN stated hold this AM treatment, assess in PM after trial with O2 at lunch. Will follow up this PM for OT treatment.
--- NOTE | 2020-09-13 11:59 | PM.PNNEP ---
Progress Note: A&P Assessment and Plan (1) KONRAD (acute kidney injury): Code(s): N17.9 - Acute kidney failure, unspecified Status: Acute Assessment and Plan: suspect due to medication effect versus infection creatinine is slowly improving evaluation to date: - urine electrolytes are not pre renal - urine eosinophils are negative - renal ultrasound is negative for acute changes follow trend of repeat labs and UOP (2) Acute and chronic respiratory failure with hypercapnia: Code(s): J96.22 - Acute and chronic respiratory failure with hypercapnia Status: Chronic Assessment and Plan: multifactorial etiology: - COPD exacerbation - CO2 rentention - possible pneumonia - underlying AMANDA - bronchospasm Pulmonary following with recommendations noted follow respiratory status closely (3) Pneumonia: Qualifiers: Laterality: unspecified laterality Lung location: unspecified part of lung Pneumonia type: due to unspecified organism Qualified Code(s): J18.9 - Pneumonia, unspecified organism Code(s): J18.9 - Pneumonia, unspecified organism Status: Acute Assessment and Plan: follow cultures on antibiotics (4) Urinary retention: Code(s): R33.9 - Retention of urine, unspecified Status: Acute Assessment and Plan: sevilla catheter in place Urology following (5) Diarrhea: Qualifiers: Diarrhea type: unspecified type Qualified Code(s): R19.7 - Diarrhea, unspecified Code(s): R19.7 - Diarrhea, unspecified Status: Acute Assessment and Plan: doing better continue supportive therapy (6) Hypertension: Code(s): I10 - Essential (primary) hypertension Status: Chronic Assessment and Plan: well controlled at this time follow trend of hemodynamics (7) Anemia: Code(s): D64.9 - Anemia, unspecified Status: Chronic Assessment and Plan: due to KONRAD and acute illness(?) follow trend of H/H Will continue to follow. (8) Sleep apnea: Code(s): G47.30 - Sleep apnea, unspecified Status: Acute Subjective Date/time seen: 09/13/20 11:59 Mentation seems to be doing better in comparison to yesterday; no other acute issues or problems voiced at this time; no events overnight or earlier this AM. Exam Narrative: Exam Narrative: General: WD/WN female in NAD Heart: normal S1 and S2; no rub Lungs: coarse with a few crackles at the bases Abdomen: soft, nontender, nondistended, positive bowel sounds Extremities: no cyanosis or clubbing; 1+ edema Skin: warm and intact Objective Data Vital Signs Vital Signs: Vital Signs Temp Pulse Resp BP Pulse Ox 09/13/20 10:00 86 09/13/20 09:11 35.7 C L 97 25 H 122/69 95 09/13/20 08:28 84 21 H 09/13/20 08:25 80 21 H 93 09/13/20 08:20 80 21 H 09/13/20 08:00 98 25 H 95 09/13/20 05:58 82 09/13/20 04:00 36.2 C L 78 22 H 126/68 95 09/13/20 02:17 104 H 26 H 09/13/20 02:15 104 H 26 H 95 09/13/20 02:00 84 09/12/20 23:48 90 19 96 09/12/20 23:26 36.3 C L 90 19 131/68 96 09/12/20 22:00 87 09/12/20 20:43 86 09/12/20 20:24 94 25 H 09/12/20 20:02 98 27 H 95 09/12/20 20:00 36.2 C L 86 27 H 151/63 H 95 09/12/20 18:00 93 09/12/20 16:45 87 09/12/20 16:00 35.9 C L 106 H 20 103/70 95 09/12/20 14:56 89 20 09/12/20 14:47 89 24 H 96 09/12/20 14:00 93 09/12/20 12:40 73 Intake/Output Intake/Output: Intake & Output 09/10/20 09/11/20 09/12/20 09/13/20 23:59 23:59 23:59 23:59 Intake Total 1280 675 Output Total 2850 1375 1150 400 Balance -8700 -3356 -868 -906 Meds/Results Medications: Active Medications Generic Name Dose Route Start Last Admin Tr
[2020-09-13] MEDS: PREGABALIN (*CRX) 50 MG CAPSULE 200 MG PO ×2 (12:41→20:27)
[2020-09-13] MEDS: ACIDOPHILUS/BULGARICUS CHEWABLE TABLET 1 TABLET PO ×2 (12:42→17:35)
[2020-09-13] MEDS: PENTOXIFYLLINE 400 MG TABCR PO ×2 (12:42→17:35)
[2020-09-13] MEDS: CHOLECALCIFEROL 1,000 UNITS TABLET 1000 UNITS PO (12:42)
[2020-09-13] MEDS: FERROUS SULFATE 324 MG TABLET PO ×2 (12:42→17:35)
[2020-09-13] MEDS: CYANOCOBALAMIN 1,000 MCG TABLET 1000 MCG PO (12:42)
[2020-09-13] MEDS: PANTOPRAZOLE 40 MG TABLET PO (12:42)
[2020-09-13] MEDS: TAMSULOSIN HCL 0.4 MG CAPSULE PO (12:42)
[2020-09-13] MEDS: carvediloL 3.125 MG TABLET PO ×2 (12:42→20:24)
[2020-09-13] MEDS: SERTRALINE HCL 25 MG TABLET PO (12:42)
--- NOTE | 2020-09-13 13:23 | PM.PNPUL ---
Progress Note: A&P Assessment and Plan (1) COPD (chronic obstructive pulmonary disease): Qualifiers: COPD type: unspecified COPD Qualified Code(s): J44.9 - Chronic obstructive pulmonary disease, unspecified Code(s): J44.9 - Chronic obstructive pulmonary disease, unspecified Status: Chronic Assessment and Plan: She appears lethargic with slightly labored breathing this morning. vitals are stable. - continue albuterol to 2.5 mg Q6h from 5 mg - continue ipratopium 0.5 mg Q6h - increase pulmicort 1.0 mg Q12h - upon discharge d/c ipratropium and pulmicort and start Trelegy 100/62.5/25 mcg 1 puff daily - f/u with us in clinic in 2-4 weeks (2) Acute and chronic respiratory failure with hypercapnia: Code(s): J96.22 - Acute and chronic respiratory failure with hypercapnia Status: Chronic Assessment and Plan: Due to COPD exacerbation - face mask may need to change to large size but ideally she would do better with nasal pillows + chin strap which can only be done at home - BIPAP increased to 20/4 with backup rate of 18 and titrate FiO2 for sats of 92-96% - daily AM ABGs until normalized. - will need NIV at home upon discharge with outpatient sleep study (3) COPD exacerbation: Code(s): J44.1 - Chronic obstructive pulmonary disease with (acute) exacerbation Status: Acute Assessment and Plan: Will add Solumedrol 60 mg IV Q6h today. Subjective Date/time seen: 09/13/20 13:23 Interval history: She is feeling much better today and her ABG has significantly improved. I suspect this is due to treatment with systemic therapy and improvement in bronchospasm. The medium-size face mask is still not fitting properly and as I examine her her bottom lip is exposed and air is clearly going out. She may need a large mask but more preferably she would do better with nasal pillows and his chin strap which can only be done at home. Review of Systems Review of Systems: All systems reviewed & are unremarkable except as noted in HPI and below Exam Const: General: cooperative, healthy appearing, awake and lethargic Nutritional Appearance: obese Orientation/consciousness: oriented to person, oriented to place, oriented to time and patient oriented x3 Limitations: physical limitations HENMT: Head: normal to inspection Eyes: General: appearance normal, both eyes and all related structures Neck: Neck: trachea midline and supple Resp: Effort & Inspection: labored Auscultation: breath sounds absent and diminished lung sounds Cardio: Jugular venous distension: no JVD Rate: regular rate Rhythm: regular rhythm Heart sounds: S1 normal heart sound present and S2 normal heart sound present GI: Inspection: normal to inspection Auscultation: normal bowel sounds Skin: General skin exam: normal color and no rashes or lesions noted Neuro: General: oriented to person, oriented to place, oriented to time and patient oriented x3 Cognition (Neuro): normal cognition Speech: normal speech Psych: Appearance: grossly normal and well kempt Mental Status: mental status grossly normal Objective Data Vital Signs Vital Signs: Vital Signs - 24 hr 09/12/20 14:00 09/12/20 14:47 09/12/20 14:56 Temperature Pulse Rate 93 89 89 Respiratory Rate 24 H 20 Blood Pressure Pulse Oximetry 96 09/12/20 16:00 09/12/20 16:45 09/12/20 18:00 Temperature 35.9 C L Pulse Rate 106 H 87 93 Respiratory Rate 20 Blood Pressure 103/70 Pulse Oximetry 95 09/12/20 20:00 09/12/20 20:02 09/12/20 20:24 Temperature 36.2 C L Pulse Rate 86 98 94 Respiratory Rate 27 H 27 H 25 H Blood Pressure 151/63 H Pulse Oximetry 95 95 09/12/20 20:43 09/12/20 22:00 09/12/20 23:26 Temperature 36.3 C L Pulse Rate 86 87 90 Respiratory Rate 19 Blood Pressure 131/68 Pulse Oximetry 96 09/12/20 23:48 09/13/20 02:00 09/13/20 02:15 Temperature Pulse Rate 90 84 104 H Respiratory Rate
--- NOTE | 2020-09-13 15:45 | PCPTNOTE ---
Spoke w/ DR Ang regarding pt decline in medical status and transfer to IMU. He stated to hold PT/OT.
--- NOTE | 2020-09-13 16:26 | PM.IMPN ---
Progress Note: A&P Assessment and Plan (1) KONRAD (acute kidney injury): Code(s): N17.9 - Acute kidney failure, unspecified Status: Acute Assessment and Plan: Suspect due to volume depletion but consider related to abx (AIN?). Urine eos negative. Renal US no acute findings. Complement normal. Lasix, Entresto held. Some evidence of fluid overload on 09/09 so IV fluids stopped and Bumex x 1 given with good UOP. Cr improved over the past few days sown to 2.5 today. Follow. (2) Acute hypercapnic respiratory failure: Code(s): J96.02 - Acute respiratory failure with hypercapnia Status: Acute Assessment and Plan: Patient had elevated pCO2 of 66 on admission. She was treated with BiPAP. COVID-19 negative. Apnea link 09/03 incomplete; no AHI or RI documented. [place] adjusting BiPAP and O2 bleed in. Repeat apnea link 09/06 noted with RI and AHI 26 on room air. The apnea link 09/08 showing AHI and RI 9 on home unit with 4L bleed in. Currently on albuterol, atrovent and Pulmicort. Appreciate pulmonary input. on steroids. Consider CT brain if no improvement (3) Pneumonia: Qualifiers: Laterality: unspecified laterality Lung location: unspecified part of lung Pneumonia type: due to unspecified organism Qualified Code(s): J18.9 - Pneumonia, unspecified organism Code(s): J18.9 - Pneumonia, unspecified organism Status: Acute Assessment and Plan: CT chest on admission showing a RML PNA. She was started on Levaquin, Vancomycin and Zosyn. Vanco/Zosyn were discontinued on 09/03 and started on IV Rocephin and oral doxycycline. Levaquin stopped after dose 5 on 09/04. Rocephin and Doxy stopped with last dose also on 09/04. No abx since 09/04/20. CXR 09/06 showing small amount of basilar atelectasis or pneumonia unchanged. No fevers and WBC remains normal. Continue to monitor. (4) Encephalopathy acute: Code(s): G93.40 - Encephalopathy, unspecified Status: Acute Assessment and Plan: Most likely metabolic encephalopathy felt related to CO2 retention. better today , try NC As above (5) Congestive heart failure (CHF): Qualifiers: Heart failure type: unspecified Heart failure chronicity: chronic Qualified Code(s): I50.9 - Heart failure, unspecified Code(s): I50.9 - Heart failure, unspecified Status: Chronic Assessment and Plan: No Echo listed. Most likely systolic CHF. Euvolemic. Lasix and Entresto held given the elevated Cr. Tolerated Bumex. Resume home medications when renal function improves. Monitor fluid status. (6) Peripheral artery disease: Code(s): I73.9 - Peripheral vascular disease, unspecified Status: Chronic Assessment and Plan: Stable. Continue current meds. (7) COPD (chronic obstructive pulmonary disease): Qualifiers: COPD type: unspecified COPD Qualified Code(s): J44.9 - Chronic obstructive pulmonary disease, unspecified Code(s): J44.9 - Chronic obstructive pulmonary disease, unspecified Status: Chronic Assessment and Plan: With acute exacerbation. Continue Albuterol, Atrovent and Pulmicort. On Anoro inhaler treatment at home. Pulmonary following. Appreciate their input. (8) Peptic ulcer disease: Code(s): K27.9 - Peptic ulcer, site unspecified, unspecified as acute or chronic, without hemorrhage or perforation Status: Acute Assessment and Plan: Guaiac positive stools. EGD showing antral erosions. Colonoscopy showing multiple large polyps some too large to remove; biopsy taken, tubolovillous ademoma. Hemorrhoids noted with stigmata of bleeding which could explain the positive guaiac. Will need to go back on Xarelto but on hold for now. Appreciate GI input. Nicole consulted for discussion about partial colectomy but patient not sure she could tolerate this. Continue Protonix. Further discussion as out
[2020-09-13] MEDS: SIMVASTATIN 20 MG TABLET PO (20:24)
[2020-09-14] VITALS (26 sets, daily range): BP systolic 104–186; BP diastolic 42–89; PULSE 72–119; RESP 18–24; TEMP 35.7–36.3; O2SAT 92–100
[2020-09-14] MEDS: ALBUTEROL SULFATE NEB 2.5 MG/0.5 ML INH INHALATION ×4 (04:11→20:38)
[2020-09-14] MEDS: IPRATROPIUM BR 0.02% INH SOLN 0.5 MG/2.5 ML VIAL INHALATION ×4 (04:11→20:38)
[2020-09-14] MEDS: methylPREDNISolone SOD SUCC 125 MG VIAL 60 MG IV PUSH ×3 (05:48→21:37)
[2020-09-14] MEDS: HEPARIN SODIUM 5,000 UNITS/ML VIAL 5000 UNITS SUB-Q ×3 (05:49→21:37)
[2020-09-14] MEDS: LEVOTHYROXINE SODIUM 125 MCG TABLET PO (05:49)
[2020-09-14] MEDS: BUDESONIDE RESPULE NEB 0.5 MG/2 ML AMP 1 MG INHALATION ×2 (08:00→20:37)
[2020-09-14 08:04] LABS: Hematocrit 26.3 % (37.0-47.0); Immature Granulocyte Absolute 0.03 K/mm3 (0.00-0.031); Immature Granulocyte Percent A 0.6 % (0-0.5); Lymphocytes Absolute Auto 0.56 K/mm3 (0.9-3.2); Lymphocytes Percent Auto 11.2 % (18.3-44.2); Mean Corpuscular HGB Conc 30.4 g/dl (32-36); Mean Corpuscular Hemoglobin 27.8 pg (26-34); Mean Corpuscular Volume 91.3 fl (80-100); Monocytes Absolute Auto 0.2 K/mm3 (0.1-0.6); Monocytes Percent Auto 4.4 % (2.6-8.5); Neutrophils Absolute Auto 4.2 K/mm3 (1.3-6.7); Neutrophils Percent Auto 83.8 % (45.5-73.1); Platelet Count Result 156 k/mm3 (150-375); Red Blood Count 2.88 M/mm3 (4.2-5.4); Red Cell Distribution Width 15.9 % (11.5-14.5)
[2020-09-14 08:33] LABS: Anion Gap 9 mmol/L (8-16); Blood Urea Nitrogen 49 mg/dL (7-17); Calcium 8.6 mg/dL (8.4-10.2); Carbon Dioxide 28 mmol/L (22-30); Chloride 110 mmol/L (98-107); Estimated CRCL calculation 25 ml/min; Estimated Glomerular Filt Rate 20; Glucose 133 mg/dL (65-105); Potassium 4.6 mmol/L (3.4-5.0); Sodium 147 mmol/L (137-145)
--- NOTE | 2020-09-14 09:11 | PM.PNPUL ---
Progress Note: A&P Assessment and Plan (1) COPD (chronic obstructive pulmonary disease): Qualifiers: COPD type: unspecified COPD Qualified Code(s): J44.9 - Chronic obstructive pulmonary disease, unspecified Code(s): J44.9 - Chronic obstructive pulmonary disease, unspecified Status: Chronic Assessment and Plan: She appears lethargic with slightly labored breathing this morning. vitals are stable. - continue albuterol to 2.5 mg Q6h from 5 mg - continue ipratopium 0.5 mg Q6h - increase pulmicort 1.0 mg Q12h - upon discharge d/c ipratropium and pulmicort and start Trelegy 100/62.5/25 mcg 1 puff daily - f/u with us in clinic in 2-4 weeks (2) Acute and chronic respiratory failure with hypercapnia: Code(s): J96.22 - Acute and chronic respiratory failure with hypercapnia Status: Chronic Assessment and Plan: Due to COPD exacerbation - face mask may need to change to large size but ideally she would do better with nasal pillows + chin strap which can only be done at home - Recommend holding BiPAP for today given her significant improvement and seeing how she does with oxygen and nasal cannula with an ABG tomorrow morning on nasal cannula oxygen alone - if ABG has normalized tomorrow morning with treatment of her COPD exacerbation and being off of BiPAP the plan is to order an outpatient sleep study given that she has lots of risk factors for obstructive sleep apnea and will likely need CPAP therapy as an outpatient. (3) COPD exacerbation: Code(s): J44.1 - Chronic obstructive pulmonary disease with (acute) exacerbation Status: Acute Assessment and Plan: Is improving with systemic steroids and nebulized bronchodilators. Subjective Date/time seen: 09/14/20 09:11 Interval history: she is doing well today she is off her BiPAP this morning she is awake and alert and just had breakfast. She still little short of breath but overall is feeling much better. Review of Systems Review of Systems: All systems reviewed & are unremarkable except as noted in HPI and below Exam Const: General: cooperative, healthy appearing, awake and lethargic Nutritional Appearance: obese Orientation/consciousness: oriented to person, oriented to place, oriented to time and patient oriented x3 Limitations: physical limitations HENMT: Head: normal to inspection Eyes: General: appearance normal, both eyes and all related structures Neck: Neck: trachea midline and supple Resp: Effort & Inspection: labored Auscultation: breath sounds absent and diminished lung sounds Cardio: Jugular venous distension: no JVD Rate: regular rate Rhythm: regular rhythm Heart sounds: S1 normal heart sound present and S2 normal heart sound present GI: Inspection: normal to inspection Auscultation: normal bowel sounds Skin: General skin exam: normal color and no rashes or lesions noted Neuro: General: oriented to person, oriented to place, oriented to time and patient oriented x3 Cognition (Neuro): normal cognition Speech: normal speech Psych: Appearance: grossly normal and well kempt Mental Status: mental status grossly normal Objective Data Vital Signs Vital Signs: Vital Signs - 24 hr 09/13/20 10:00 09/13/20 11:30 09/13/20 12:00 Temperature Pulse Rate 86 78 97 Respiratory Rate 20 25 H Blood Pressure Pulse Oximetry 98 95 09/13/20 12:42 09/13/20 12:43 09/13/20 13:00 Temperature 36.2 C L Pulse Rate 110 H 89 80 Respiratory Rate 24 H 20 Blood Pressure 139/69 Pulse Oximetry 97 98 09/13/20 14:00 09/13/20 16:00 09/13/20 17:40 Temperature 35.9 C L Pulse Rate 96 94 92 Respiratory Rate 25 H 22 H Blood Pressure 125/52 L Pulse Oximetry 95 93 09/13/20 18:00 09/13/20 20:00 09/13/20 20:24 Temperature 36.4 C Pulse Rate 79 98 88 Respiratory Rate 23 H Blood Pressure 137/65 Pulse Oximetry 100 09/13/20 20:49 09/13/20 20:57 09/13/20 20:58 Temperature
[2020-09-14 10:10] LABS: Alveolar/Arterial O2 Gradient 159.1 mmHg; Base Excess ABG -2.3 mEq/l (+/-2.0); Fractional Inspired Oxygen 40 %; HCO3 ABG 24.5 mEq/l (22.0-26.0); Oxygen Content ABG 12.6 %vol (16.0-22.0); Oxygen Saturation ABG 90.9 % (95.0-100.0); PCO2 ABG 51.7 mmHg (35.0-45.0); PO2 ABG 66.6 mmHg (80.0-100.0); PO2 FiO2 Ratio Arterial Blood 1.66 %; Total Hemoglobin 9.9 g/dL (12.0-18.0)
[2020-09-14 10:12] LABS: Device HIGH FLOW NASAL CANN; Modified Allen's Test Pass; Site Drawn RIGHT RADIAL; pH ABG 7.293 (7.350-7.450)
[2020-09-14] MEDS: SERTRALINE HCL 25 MG TABLET PO (10:31)
[2020-09-14] MEDS: TAMSULOSIN HCL 0.4 MG CAPSULE PO (10:31)
[2020-09-14] MEDS: FERROUS SULFATE 324 MG TABLET PO (10:32)
[2020-09-14] MEDS: carvediloL 3.125 MG TABLET PO ×2 (10:32→21:38)
[2020-09-14] MEDS: PENTOXIFYLLINE 400 MG TABCR PO (10:32)
[2020-09-14] MEDS: PANTOPRAZOLE 40 MG TABLET PO (10:32)
[2020-09-14] MEDS: CYANOCOBALAMIN 1,000 MCG TABLET 1000 MCG PO (10:33)
[2020-09-14] MEDS: ACIDOPHILUS/BULGARICUS CHEWABLE TABLET 1 TABLET PO (10:33)
[2020-09-14] MEDS: CHOLECALCIFEROL 1,000 UNITS TABLET 1000 UNITS PO (10:33)
[2020-09-14] MEDS: PREGABALIN (*CRX) 50 MG CAPSULE 200 MG PO ×2 (10:36→21:38)
--- NOTE | 2020-09-14 12:52 | P.PNNP_ITS ---
Progress Note: A&P Assessment and Plan (1) KONRAD (acute kidney injury): Code(s): N17.9 - Acute kidney failure, unspecified Status: Acute Assessment and Plan: * suspect due to medication effect versus infection * creatinine is slowly improving * evaluation to date: - urine electrolytes are not pre renal - urine eosinophils are negative - renal ultrasound is negative for acute changes * follow trend of repeat labs and UOP (2) Acute and chronic respiratory failure with hypercapnia: Code(s): J96.22 - Acute and chronic respiratory failure with hypercapnia Status: Chronic Assessment and Plan: * multifactorial etiology: - COPD exacerbation - CO2 rentention - possible pneumonia - underlying AMANDA - bronchospasm * Pulmonary following with recommendations noted * follow respiratory status closely (3) Pneumonia: Qualifiers: Laterality: unspecified laterality Lung location: unspecified part of lung Pneumonia type: due to unspecified organism Qualified Code(s): J18.9 - Pneumonia, unspecified organism Code(s): J18.9 - Pneumonia, unspecified organism Status: Acute Assessment and Plan: * follow cultures * on antibiotics (4) Urinary retention: Code(s): R33.9 - Retention of urine, unspecified Status: Acute Assessment and Plan: * sevilla catheter in place * Urology following (5) Diarrhea: Qualifiers: Diarrhea type: unspecified type Qualified Code(s): R19.7 - Diarrhea, unspecified Code(s): R19.7 - Diarrhea, unspecified Status: Acute Assessment and Plan: * doing better * continue supportive therapy (6) Hypertension: Code(s): I10 - Essential (primary) hypertension Status: Chronic Assessment and Plan: * well controlled at this time * follow trend of hemodynamics (7) Anemia: Code(s): D64.9 - Anemia, unspecified Status: Chronic Assessment and Plan: * due to KONRAD and acute illness(?) * follow trend of H/H Will continue to follow. Subjective Date/time seen: 09/14/20 12:52 Slow and steady improvement in mentation as well as respiratory status noted with interventions to date; no events overnight or earlier this AM; no acute dis tress noted at the time of my visit. Exam Narrative: Exam Narrative: General: WD/WN female in NAD Heart: normal S1 and S2; no rub Lungs: coarse with a few crackles at the bases Abdomen: soft, nontender, nondistended, positive bowel sounds Extremities: no cyanosis or clubbing; 1+ edema Skin: warm and intact Objective Data Vital Signs Vital Signs: Vital Signs Temp Pulse Resp BP Pulse Ox 09/14/20 12:00 36.0 C L 96 22 H 149/89 H 100 09/14/20 10:32 119 H 09/14/20 10:00 103 H 09/14/20 08:11 80 20 09/14/20 08:00 35.7 C L 96 20 139/74 95 09/14/20 06:19 88 18 97 09/14/20 06:00 85 09/14/20 04:34 79 18 09/14/20 04:11 81 18 09/14/20 04:00 36.3 C L 93 20 151/83 H 97 09/14/20 02:00 94 09/14/20 00:00 36.3 C L 81 18 186/74 H 97 09/13/20 22:00 72 09/13/20 20:58 85 18 09/13/20 20:57 80 20 100 09/13/20 20:49
--- NOTE | 2020-09-14 12:52 | PM.PNNEP ---
Progress Note: A&P Assessment and Plan (1) KONRAD (acute kidney injury): Code(s): N17.9 - Acute kidney failure, unspecified Status: Acute Assessment and Plan: suspect due to medication effect versus infection creatinine is slowly improving evaluation to date: - urine electrolytes are not pre renal - urine eosinophils are negative - renal ultrasound is negative for acute changes follow trend of repeat labs and UOP (2) Acute and chronic respiratory failure with hypercapnia: Code(s): J96.22 - Acute and chronic respiratory failure with hypercapnia Status: Chronic Assessment and Plan: multifactorial etiology: - COPD exacerbation - CO2 rentention - possible pneumonia - underlying AMANDA - bronchospasm Pulmonary following with recommendations noted follow respiratory status closely (3) Pneumonia: Qualifiers: Laterality: unspecified laterality Lung location: unspecified part of lung Pneumonia type: due to unspecified organism Qualified Code(s): J18.9 - Pneumonia, unspecified organism Code(s): J18.9 - Pneumonia, unspecified organism Status: Acute Assessment and Plan: follow cultures on antibiotics (4) Urinary retention: Code(s): R33.9 - Retention of urine, unspecified Status: Acute Assessment and Plan: sevilla catheter in place Urology following (5) Diarrhea: Qualifiers: Diarrhea type: unspecified type Qualified Code(s): R19.7 - Diarrhea, unspecified Code(s): R19.7 - Diarrhea, unspecified Status: Acute Assessment and Plan: doing better continue supportive therapy (6) Hypertension: Code(s): I10 - Essential (primary) hypertension Status: Chronic Assessment and Plan: well controlled at this time follow trend of hemodynamics (7) Anemia: Code(s): D64.9 - Anemia, unspecified Status: Chronic Assessment and Plan: due to KONRAD and acute illness(?) follow trend of H/H Will continue to follow. Subjective Date/time seen: 09/14/20 12:52 Slow and steady improvement in mentation as well as respiratory status noted with interventions to date; no events overnight or earlier this AM; no acute distress noted at the time of my visit. Exam Narrative: Exam Narrative: General: WD/WN female in NAD Heart: normal S1 and S2; no rub Lungs: coarse with a few crackles at the bases Abdomen: soft, nontender, nondistended, positive bowel sounds Extremities: no cyanosis or clubbing; 1+ edema Skin: warm and intact Objective Data Vital Signs Vital Signs: Vital Signs Temp Pulse Resp BP Pulse Ox 09/14/20 12:00 36.0 C L 96 22 H 149/89 H 100 09/14/20 10:32 119 H 09/14/20 10:00 103 H 09/14/20 08:11 80 20 09/14/20 08:00 35.7 C L 96 20 139/74 95 09/14/20 06:19 88 18 97 09/14/20 06:00 85 09/14/20 04:34 79 18 09/14/20 04:11 81 18 09/14/20 04:00 36.3 C L 93 20 151/83 H 97 09/14/20 02:00 94 09/14/20 00:00 36.3 C L 81 18 186/74 H 97 09/13/20 22:00 72 09/13/20 20:58 85 18 09/13/20 20:57 80 20 100 09/13/20 20:49 80 18 09/13/20 20:24 88 09/13/20 20:00 36.4 C 98 23 H 137/65 100 09/13/20 18:00 79 09/13/20 17:40 35.9 C L 92 22 H 125/52 L 93 Intake/Output Intake/Output: Intake & Output 09/11/20 09/12/20 09/13/20 09/14/20 23:59 23:59 23:59 23:59 Intake Total 873 641 5901 Output Total 1375 1150 1400 1650 Balance -5566 -994 -860 -310 Meds/Results Medications: Active Medications Generic Name Dose Route Start Last Admin Trade Name Desirae PRN Reason Stop Dose Admin Acetaminophen 1,000 mg 08/31/20 01:04 09/13/20 20:27 Acetaminophen 500 Mg Tablet PO 1,000 mg Q6H PRN Administration Mild Pain (1-10)
[2020-09-14] MEDS: LOPERAMIDE HCL 2 MG CAPSULE PO ×2 (13:54→21:39)
--- NOTE | 2020-09-14 15:35 | PM.IMPN ---
Progress Note: A&P Assessment and Plan (1) KONRAD (acute kidney injury): Code(s): N17.9 - Acute kidney failure, unspecified Status: Acute Assessment and Plan: Suspect due to volume depletion but consider related to abx (AIN?). Urine eos negative. Renal US no acute findings. Complement normal. Lasix, Entresto held. Some evidence of fluid overload on 09/09 so IV fluids stopped and Bumex x 1 given with good UOP. Cr improved over the past few days sown to 2.4 today. Follow. (2) Acute hypercapnic respiratory failure: Code(s): J96.02 - Acute respiratory failure with hypercapnia Status: Acute Assessment and Plan: Patient had elevated pCO2 of 66 on admission. She was treated with BiPAP. COVID-19 negative. Apnea link 09/03 incomplete; no AHI or RI documented. Public Health Training Assistant adjusting BiPAP and O2 bleed in. Repeat apnea link 09/06 noted with RI and AHI 26 on room air. The apnea link 09/08 showing AHI and RI 9 on home unit with 4L bleed in. Currently on albuterol, atrovent and Pulmicort. on steroids. (3) Pneumonia: Qualifiers: Laterality: unspecified laterality Lung location: unspecified part of lung Pneumonia type: due to unspecified organism Qualified Code(s): J18.9 - Pneumonia, unspecified organism Code(s): J18.9 - Pneumonia, unspecified organism Status: Acute Assessment and Plan: CT chest on admission showing a RML PNA. She was started on Levaquin, Vancomycin and Zosyn. Vanco/Zosyn were discontinued on 09/03 and started on IV Rocephin and oral doxycycline. Levaquin stopped after dose 5 on 09/04. Rocephin and Doxy stopped with last dose also on 09/04. No abx since 09/04/20. CXR 09/06 showing small amount of basilar atelectasis or pneumonia unchanged. No fevers and WBC remains normal. Continue to monitor. (4) Encephalopathy acute: Code(s): G93.40 - Encephalopathy, unspecified Status: Acute Assessment and Plan: Most likely metabolic encephalopathy felt related to CO2 retention. better each day , try NC more but still some co2 retention on abg (5) Congestive heart failure (CHF): Qualifiers: Heart failure type: unspecified Heart failure chronicity: chronic Qualified Code(s): I50.9 - Heart failure, unspecified Code(s): I50.9 - Heart failure, unspecified Status: Chronic Assessment and Plan: No Echo listed. Most likely systolic CHF. Euvolemic. Lasix and Entresto held given the elevated Cr. Tolerated Bumex. Resume home medications when renal function improves. Monitor fluid status. (6) Peripheral artery disease: Code(s): I73.9 - Peripheral vascular disease, unspecified Status: Chronic Assessment and Plan: Stable. Continue current meds. (7) COPD (chronic obstructive pulmonary disease): Qualifiers: COPD type: unspecified COPD Qualified Code(s): J44.9 - Chronic obstructive pulmonary disease, unspecified Code(s): J44.9 - Chronic obstructive pulmonary disease, unspecified Status: Chronic Assessment and Plan: With acute exacerbation. Continue Albuterol, Atrovent and Pulmicort. On Anoro inhaler treatment at home. Pulmonary following. (8) Peptic ulcer disease: Code(s): K27.9 - Peptic ulcer, site unspecified, unspecified as acute or chronic, without hemorrhage or perforation Status: Acute Assessment and Plan: Guaiac positive stools. EGD showing antral erosions. Colonoscopy showing multiple large polyps some too large to remove; biopsy taken, tubolovillous ademoma. Hemorrhoids noted with stigmata of bleeding which could explain the positive guaiac. Will need to go back on Xarelto but on hold for now. Appreciate GI input. Nicole consulted for discussion about partial colectomy but patient not sure she could tolerate this. Continue Protonix. Further discussion as outpatient. Hgb stable 8.0 (9) Atrial fibrillat
--- NOTE | 2020-09-14 20:30 | PC.NURSE ---
Patient to be left on NC throughout the night and have an ABG drawn in the morning per Dr. Montoya. Passed on info in report to night RN.
[2020-09-14] MEDS: SIMVASTATIN 20 MG TABLET PO (21:38)
[2020-09-14] MEDS: ACETAMINOPHEN 500 MG TABLET 1000 MG PO (21:39)
[2020-09-15] VITALS (25 sets, daily range): BP systolic 116–153; BP diastolic 50–87; PULSE 67–111; RESP 18–24; TEMP 36–36.6; O2SAT 90–97
[2020-09-15] MEDS: ALBUTEROL SULFATE NEB 2.5 MG/0.5 ML INH INHALATION ×4 (02:09→22:20)
[2020-09-15] MEDS: IPRATROPIUM BR 0.02% INH SOLN 0.5 MG/2.5 ML VIAL INHALATION ×4 (02:09→22:20)
[2020-09-15 04:31] LABS: Alveolar/Arterial O2 Gradient 80.4 mmHg; Base Excess ABG 0.2 mEq/l (+/-2.0); Fractional Inspired Oxygen 32 %; HCO3 ABG 28.4 mEq/l (22.0-26.0); Oxygen Content ABG 11.4 %vol (16.0-22.0); Oxygen Saturation ABG 89.3 % (95.0-100.0); Oxyhemoglobin 89.3 % THb (90.0-100.0); PO2 ABG 67.5 mmHg (80.0-100.0); PO2 FiO2 Ratio Arterial Blood 2.11 %
[2020-09-15 04:34] LABS: Device HIGH FLOW NASAL CANN; Modified Allen's Test Pass; PCO2 ABG 68.6 mmHg (35.0-45.0); Site Drawn LEFT RADIAL; pH ABG 7.235 (7.350-7.450)
[2020-09-15 04:59] LABS: Hematocrit 27.3 % (37.0-47.0); Immature Granulocyte Absolute 0.06 K/mm3 (0.00-0.031); Immature Granulocyte Percent A 1.3 % (0-0.5); Lymphocytes Absolute Auto 0.42 K/mm3 (0.9-3.2); Lymphocytes Percent Auto 9.3 % (18.3-44.2); Mean Corpuscular HGB Conc 29.3 g/dl (32-36); Mean Corpuscular Hemoglobin 27.8 pg (26-34); Mean Corpuscular Volume 94.8 fl (80-100); Mean Platelet Volume 12.6 fl (7.4-10.4); Monocytes Absolute Auto 0.2 K/mm3 (0.1-0.6); Monocytes Percent Auto 4.9 % (2.6-8.5); Neutrophils Absolute Auto 3.8 K/mm3 (1.3-6.7); Neutrophils Percent Auto 84.5 % (45.5-73.1); Platelet Count Result 139 k/mm3 (150-375); Red Blood Count 2.88 M/mm3 (4.2-5.4); Red Cell Distribution Width 16.1 % (11.5-14.5); White Blood Count 4.5 K/mm3 (4.5-10.0)
[2020-09-15 05:26] LABS: Anion Gap 5 mmol/L (8-16); Blood Urea Nitrogen 54 mg/dL (7-17); Calcium 8.4 mg/dL (8.4-10.2); Carbon Dioxide 31 mmol/L (22-30); Chloride 109 mmol/L (98-107); Estimated CRCL calculation 27 ml/min; Estimated Glomerular Filt Rate 22; Glucose 155 mg/dL (65-105); Potassium 4.7 mmol/L (3.4-5.0); Sodium 145 mmol/L (137-145)
[2020-09-15] MEDS: methylPREDNISolone SOD SUCC 125 MG VIAL 60 MG IV PUSH ×3 (06:14→19:08)
[2020-09-15] MEDS: HEPARIN SODIUM 5,000 UNITS/ML VIAL 5000 UNITS SUB-Q ×3 (06:14→21:41)
[2020-09-15] MEDS: LEVOTHYROXINE SODIUM 125 MCG TABLET PO (06:14)
[2020-09-15] MEDS: ACETAMINOPHEN 500 MG TABLET 1000 MG PO (06:14)
[2020-09-15 06:32] LABS: Anisocytosis 1+ (NORMAL); Hypochromasia 1+ (NORMAL); Microcytosis 1+ (NORMAL); Ovalocytes 1+ (NORMAL)
[2020-09-15] MEDS: BUDESONIDE RESPULE NEB 0.5 MG/2 ML AMP 1 MG INHALATION ×2 (07:39→22:19)
[2020-09-15] MEDS: PENTOXIFYLLINE 400 MG TABCR PO ×2 (09:23→19:07)
[2020-09-15] MEDS: carvediloL 3.125 MG TABLET PO ×2 (09:24→21:41)
[2020-09-15] MEDS: TAMSULOSIN HCL 0.4 MG CAPSULE PO (09:24)
[2020-09-15] MEDS: ACIDOPHILUS/BULGARICUS CHEWABLE TABLET 1 TABLET PO ×2 (09:24→19:07)
[2020-09-15] MEDS: SERTRALINE HCL 25 MG TABLET PO (09:24)
[2020-09-15] MEDS: PANTOPRAZOLE 40 MG TABLET PO (09:24)
[2020-09-15] MEDS: CHOLECALCIFEROL 1,000 UNITS TABLET 1000 UNITS PO (09:24)
[2020-09-15] MEDS: FERROUS SULFATE 324 MG TABLET PO ×2 (09:24→19:07)
[2020-09-15] MEDS: PREGABALIN (*CRX) 50 MG CAPSULE 200 MG PO ×2 (09:24→21:41)
[2020-09-15] MEDS: CYANOCOBALAMIN 1,000 MCG TABLET 1000 MCG PO (09:24)
--- NOTE | 2020-09-15 11:09 | PCPTNOTE ---
Patient presented in bed in inclined position. Patient sleeping and unable to wake up with therapist tapping shoulder/ touching leg. Patient did not open eyes or follow commands at this time. Will attempt later this afternoon.
--- NOTE | 2020-09-15 12:54 | PM.PNPUL ---
Progress Note: A&P Assessment and Plan (1) COPD (chronic obstructive pulmonary disease): Qualifiers: COPD type: unspecified COPD Qualified Code(s): J44.9 - Chronic obstructive pulmonary disease, unspecified Code(s): J44.9 - Chronic obstructive pulmonary disease, unspecified Status: Chronic Assessment and Plan: She appears lethargic with slightly labored breathing this morning. vitals are stable. - continue albuterol to 2.5 mg Q6h from 5 mg - continue ipratopium 0.5 mg Q6h - increase pulmicort 1.0 mg Q12h - upon discharge d/c ipratropium and pulmicort and start Trelegy 100/62.5/25 mcg 1 puff daily - f/u with us in clinic in 2-4 weeks (2) Acute and chronic respiratory failure with hypercapnia: Code(s): J96.22 - Acute and chronic respiratory failure with hypercapnia Status: Chronic Assessment and Plan: Due to COPD exacerbation - will resume home Trilogy NIV and see if her ABG improves. It is of note that the patient is currently having a COPD exacerbation which makes the Trilogy less effective. We may have to switch to BiPAP therapy until her COPD exacerbation improves. - face mask may need to change to large size but ideally she would do better with nasal pillows + chin strap which can only be done at home - daily AM ABG until normalized (3) COPD exacerbation: Code(s): J44.1 - Chronic obstructive pulmonary disease with (acute) exacerbation Status: Acute Assessment and Plan: Is improving with systemic steroids and nebulized bronchodilators. Subjective Date/time seen: 09/15/20 12:54 Interval history: The patient's ABG is slightly worse this morning But she looks okay maybe slightly sleepy but she is awake and she had breakfast. She still appears to be a bit short of breath with minimal exertion. Today will try to put her back on her Trilogy NIV settings and repeat an ABG tomorrow morning. Review of Systems Review of Systems: All systems reviewed & are unremarkable except as noted in HPI and below Exam Const: General: cooperative, healthy appearing, awake and lethargic Nutritional Appearance: obese Orientation/consciousness: oriented to person, oriented to place, oriented to time and patient oriented x3 Limitations: physical limitations HENMT: Head: normal to inspection Eyes: General: appearance normal, both eyes and all related structures Neck: Neck: trachea midline and supple Resp: Effort & Inspection: labored Auscultation: breath sounds absent and diminished lung sounds Cardio: Jugular venous distension: no JVD Rate: regular rate Rhythm: regular rhythm Heart sounds: S1 normal heart sound present and S2 normal heart sound present GI: Inspection: normal to inspection Auscultation: normal bowel sounds Skin: General skin exam: normal color and no rashes or lesions noted Neuro: General: oriented to person, oriented to place, oriented to time and patient oriented x3 Cognition (Neuro): normal cognition Speech: normal speech Psych: Appearance: grossly normal and well kempt Mental Status: mental status grossly normal Objective Data Vital Signs Vital Signs: Vital Signs - 24 hr 09/14/20 14:00 09/14/20 15:07 09/14/20 15:17 Temperature Pulse Rate 93 95 93 Respiratory Rate 18 18 Blood Pressure Pulse Oximetry 99 09/14/20 16:00 09/14/20 18:00 09/14/20 20:00 Temperature 36.2 C L 35.7 C L Pulse Rate 77 83 81 Respiratory Rate 24 H 20 Blood Pressure 134/66 109/42 L Pulse Oximetry 95 93 09/14/20 20:38 09/14/20 20:39 09/14/20 21:07 Temperature Pulse Rate 78 88 Respiratory Rate 20 20 Blood Pressure Pulse Oximetry 98 09/14/20 21:38 09/14/20 22:00 09/14/20 22:24 Temperature Pulse Rate 88 81 Respiratory Rate Blood Pressure Pulse Oximetry 96 09/14/20 22:37 09/14/20 23:50 09/15/20 00:00 Temperature 36.1 C L Pulse Rate 74 81 Respiratory Rate 18 20 Blood Pressure 104/47 L
--- NOTE | 2020-09-15 13:55 | PCPTNOTE ---
Patient refused therapy at this time. Educated patient on the benefits of therapy but still declined at this time.
--- NOTE | 2020-09-15 15:09 | PM.PNNEP ---
Progress Note: A&P Assessment and Plan (1) KONRAD (acute kidney injury): Code(s): N17.9 - Acute kidney failure, unspecified Status: Acute Assessment and Plan: suspect due to medication effect versus infection creatinine is slowly improving evaluation to date: - urine electrolytes are not pre renal - urine eosinophils are negative - renal ultrasound is negative for acute changes follow trend of repeat labs and UOP (2) Acute and chronic respiratory failure with hypercapnia: Code(s): J96.22 - Acute and chronic respiratory failure with hypercapnia Status: Chronic Assessment and Plan: multifactorial etiology: - COPD exacerbation - CO2 rentention - possible pneumonia - underlying AMANDA - bronchospasm Pulmonary following with recommendations noted follow respiratory status closely (3) Pneumonia: Qualifiers: Laterality: unspecified laterality Lung location: unspecified part of lung Pneumonia type: due to unspecified organism Qualified Code(s): J18.9 - Pneumonia, unspecified organism Code(s): J18.9 - Pneumonia, unspecified organism Status: Acute Assessment and Plan: follow cultures on antibiotics (4) Urinary retention: Code(s): R33.9 - Retention of urine, unspecified Status: Acute Assessment and Plan: sevilla catheter in place Urology following (5) Diarrhea: Qualifiers: Diarrhea type: unspecified type Qualified Code(s): R19.7 - Diarrhea, unspecified Code(s): R19.7 - Diarrhea, unspecified Status: Acute Assessment and Plan: doing better in general suspect possibly medication related - c. diff assay negative continue supportive therapy (6) Hypertension: Code(s): I10 - Essential (primary) hypertension Status: Chronic Assessment and Plan: well controlled at this time follow trend of hemodynamics (7) Anemia: Code(s): D64.9 - Anemia, unspecified Status: Chronic Assessment and Plan: due to KONRAD and acute illness(?) follow trend of H/H Will continue to follow. Subjective Date/time seen: 09/15/20 15:09 Awake and alert at the time of my visit; respiratory status seems stable; no acute distress apparent; no events overnight or earlier this AM. Exam Narrative: Exam Narrative: General: WD/WN female in NAD Heart: normal S1 and S2; no rub Lungs: coarse with decreased breath sounds at bases Abdomen: soft, nontender, nondistended, positive bowel sounds Extremities: no cyanosis or clubbing; 1+ edema Skin: warm and intact Objective Data Vital Signs Vital Signs: Vital Signs Temp Pulse Resp BP Pulse Ox 09/15/20 13:11 36.6 C 74 22 H 141/71 H 96 09/15/20 09:24 93 09/15/20 08:29 36.0 C L 102 H 20 142/78 H 90 09/15/20 07:39 83 18 95 09/15/20 06:00 86 09/15/20 04:00 36.1 C L 82 18 124/50 L 94 09/15/20 02:15 81 20 09/15/20 02:09 97 20 09/15/20 02:00 81 09/15/20 00:00 81 20 93 09/14/20 23:50 36.1 C L 74 18 104/47 L 93 09/14/20 22:37 92 09/14/20 22:24 96 09/14/20 22:00 81 09/14/20 21:38 88 09/14/20 21:07 88 20 09/14/20 20:39 78 20 09/14/20 20:38 98 09/14/20 20:00 35.7 C L 81 20 109/42 L 93 09/14/20 18:00 83 Intake/Output Intake/Output: Intake & Output 09/12/20 09/13/20 09/14/20 09/15/20 23:59 23:59 23:59 23:59 Intake Total 789 738 5078 760 Output Total 1150 1400 1650 500 Balance -475 -860 220 260 Meds/Results Medications: Active Medications Generic Name Dose Route Start Last Admin Trade Name Desirae PRN Reason Stop Dose Admin Acetaminophen 1,000 mg 08/31/20 01:04 09/15/20 06:14 Acetaminophen 500 Mg Tablet PO 1,000 mg Q6H PRN Administration Mild Pain (1-10) Or Feve
--- NOTE | 2020-09-15 15:09 | P.PNNP_ITS ---
Progress Note: A&P Assessment and Plan (1) KONRAD (acute kidney injury): Code(s): N17.9 - Acute kidney failure, unspecified Status: Acute Assessment and Plan: * suspect due to medication effect versus infection * creatinine is slowly improving * evaluation to date: - urine electrolytes are not pre renal - urine eosinophils are negative - renal ultrasound is negative for acute changes * follow trend of repeat labs and UOP (2) Acute and chronic respiratory failure with hypercapnia: Code(s): J96.22 - Acute and chronic respiratory failure with hypercapnia Status: Chronic Assessment and Plan: * multifactorial etiology: - COPD exacerbation - CO2 rentention - possible pneumonia - underlying AMANDA - bronchospasm * Pulmonary following with recommendations noted * follow respiratory status closely (3) Pneumonia: Qualifiers: Laterality: unspecified laterality Lung location: unspecified part of lung Pneumonia type: due to unspecified organism Qualified Code(s): J18.9 - Pneumonia, unspecified organism Code(s): J18.9 - Pneumonia, unspecified organism Status: Acute Assessment and Plan: * follow cultures * on antibiotics (4) Urinary retention: Code(s): R33.9 - Retention of urine, unspecified Status: Acute Assessment and Plan: * sevilla catheter in place * Urology following (5) Diarrhea: Qualifiers: Diarrhea type: unspecified type Qualified Code(s): R19.7 - Diarrhea, unspecified Code(s): R19.7 - Diarrhea, unspecified Status: Acute Assessment and Plan: * doing better in general * suspect possibly medication related - c. diff assay negative * continue supportive therapy (6) Hypertension: Code(s): I10 - Essential (primary) hypertension Status: Chronic Assessment and Plan: * well controlled at this time * follow trend of hemodynamics (7) Anemia: Code(s): D64.9 - Anemia, unspecified Status: Chronic Assessment and Plan: * due to KONRAD and acute illness(?) * follow trend of H/H Will continue to follow. Subjective Date/time seen: 09/15/20 15:09 Awake and alert at the time of my visit; respiratory status seems stable; no acute distress apparent; no events overnight or earlier this AM. Exam Narrative: Exam Narrative: General: WD/WN female in NAD Heart: normal S1 and S2; no rub Lungs: coarse with decreased breath sounds at bases Abdomen: soft, nontender, nondistended, positive bowel sounds Extremities: no cyanosis or clubbing; 1+ edema Skin: warm and intact Objective Data Vital Signs Vital Signs: Vital Signs Temp Pulse Resp BP Pulse Ox 09/15/20 13:11 36.6 C 74 22 H 141/71 H 96 09/15/20 09:24 93 09/15/20 08:29 36.0 C L 102 H 20 142/78 H 90 09/15/20 07:39 83 18 95 09/15/20 06:00 86 09/15/20 04:00 36.1 C L 82 18 124/50 L 94 09/15/20 02:15 81 20 09/15/20 02:09 97 20 09/15/20 02:00 81 09/15/20 00:00 81 20 93 09/14/20 23:50 36.1 C L 74 18 104/47 L 93 09/14/20 22:37 92 09/14/20 22:24 96 09/14/20 22:00 81 09/14/20 21:38 88
--- NOTE | 2020-09-15 15:47 | PM.IMPN ---
Progress Note: A&P Assessment and Plan (1) KONRAD (acute kidney injury): Code(s): N17.9 - Acute kidney failure, unspecified Status: Acute Assessment and Plan: Suspect due to volume depletion but consider related to abx (AIN?). Urine eos negative. Renal US no acute findings. Complement normal. Lasix, Entresto held. Some evidence of fluid overload on 09/09 so IV fluids stopped and Bumex x 1 given with good UOP. Cr improved over the past few days sown to 2.2 today. Follow. (2) Acute hypercapnic respiratory failure: Code(s): J96.02 - Acute respiratory failure with hypercapnia Status: Acute Assessment and Plan: Patient had elevated pCO2 of 66 on admission. She was treated with BiPAP. COVID-19 negative. Apnea link 09/03 incomplete; no AHI or RI documented. Data Report Analyst adjusting BiPAP and O2 bleed in. Repeat apnea link 09/06 noted with RI and AHI 26 on room air. The apnea link 09/08 showing AHI and RI 9 on home unit with 4L bleed in. Currently on albuterol, atrovent and Pulmicort. on steroids. NC last pm and co2 up with ph down, restart hs bipap and repeat abg am (3) Pneumonia: Qualifiers: Laterality: unspecified laterality Lung location: unspecified part of lung Pneumonia type: due to unspecified organism Qualified Code(s): J18.9 - Pneumonia, unspecified organism Code(s): J18.9 - Pneumonia, unspecified organism Status: Acute Assessment and Plan: CT chest on admission showing a RML PNA. She was started on Levaquin, Vancomycin and Zosyn. Vanco/Zosyn were discontinued on 09/03 and started on IV Rocephin and oral doxycycline. Levaquin stopped after dose 5 on 09/04. Rocephin and Doxy stopped with last dose also on 09/04. No abx since 09/04/20. CXR 09/06 showing small amount of basilar atelectasis or pneumonia unchanged. No fevers and WBC remains normal. Continue to monitor. (4) Encephalopathy acute: Code(s): G93.40 - Encephalopathy, unspecified Status: Acute Assessment and Plan: Most likely metabolic encephalopathy felt related to CO2 retention. better each day , tried NC last pm but more co2 retention on abg, resume bipap (5) Congestive heart failure (CHF): Qualifiers: Heart failure type: unspecified Heart failure chronicity: chronic Qualified Code(s): I50.9 - Heart failure, unspecified Code(s): I50.9 - Heart failure, unspecified Status: Chronic Assessment and Plan: No Echo listed. Most likely systolic CHF. Euvolemic. Lasix and Entresto held given the elevated Cr. continued coreg Tolerated Bumex. Resume home medications when renal function improves. Monitor fluid status. (6) Peripheral artery disease: Code(s): I73.9 - Peripheral vascular disease, unspecified Status: Chronic Assessment and Plan: Stable. Continue current meds. (7) COPD (chronic obstructive pulmonary disease): Qualifiers: COPD type: unspecified COPD Qualified Code(s): J44.9 - Chronic obstructive pulmonary disease, unspecified Code(s): J44.9 - Chronic obstructive pulmonary disease, unspecified Status: Chronic Assessment and Plan: With acute exacerbation. Continue Albuterol, Atrovent and Pulmicort. On Anoro inhaler treatment at home. Pulmonary following. (8) Peptic ulcer disease: Code(s): K27.9 - Peptic ulcer, site unspecified, unspecified as acute or chronic, without hemorrhage or perforation Status: Acute Assessment and Plan: Guaiac positive stools. EGD showing antral erosions. Colonoscopy showing multiple large polyps some too large to remove; biopsy taken, tubolovillous ademoma. Hemorrhoids noted with stigmata of bleeding which could explain the positive guaiac. Will need to go back on Xarelto but on hold for now. Appreciate GI input. Nicole consulted for discussion about partial colectomy but patient not sure she could tolerate
[2020-09-15 16:56] LABS: SARS-CoV-2 RNA PCR Negative
[2020-09-15] MEDS: SIMVASTATIN 20 MG TABLET PO (21:41)
[2020-09-16] VITALS (25 sets, daily range): BP systolic 127–173; BP diastolic 77–88; PULSE 65–99; RESP 18–24; TEMP 35.7–36.2; O2SAT 90–100
[2020-09-16] MEDS: methylPREDNISolone SOD SUCC 125 MG VIAL 60 MG IV PUSH ×4 (00:53→21:58)
[2020-09-16] MEDS: ALBUTEROL SULFATE NEB 2.5 MG/0.5 ML INH INHALATION ×4 (04:03→19:24)
[2020-09-16] MEDS: IPRATROPIUM BR 0.02% INH SOLN 0.5 MG/2.5 ML VIAL INHALATION ×4 (04:03→19:24)
[2020-09-16 05:10] LABS: Magnesium 1.6 mg/dL (1.6-2.3)
[2020-09-16] MEDS: LEVOTHYROXINE SODIUM 125 MCG TABLET PO (05:14)
[2020-09-16] MEDS: HEPARIN SODIUM 5,000 UNITS/ML VIAL 5000 UNITS SUB-Q ×3 (05:14→21:59)
[2020-09-16 05:16] LABS: Anion Gap 1 mmol/L (8-16); Blood Urea Nitrogen 60 mg/dL (7-17); Calcium 8.1 mg/dL (8.4-10.2); Carbon Dioxide 34 mmol/L (22-30); Chloride 110 mmol/L (98-107); Estimated CRCL calculation 32 ml/min; Estimated Glomerular Filt Rate 26; Glucose 128 mg/dL (65-105); Potassium 4.9 mmol/L (3.4-5.0); Sodium 145 mmol/L (137-145)
[2020-09-16 06:12] LABS: Alveolar/Arterial O2 Gradient 122.7 mmHg; Base Excess ABG 2.2 mEq/l (+/-2.0); Carboxyhemoglobin 0.3 % THb (0-2.0); Device OTHER DEVICE; Fractional Inspired Oxygen 36 %; HCO3 ABG 28.6 mEq/l (22.0-26.0); Methemoglobin ABG 0.4 %THb (0-1.5); Modified Allen's Test Pass; Oxygen Content ABG 11.7 %vol (16.0-22.0); Oxyhemoglobin 91.9 % THb (90.0-100.0); PCO2 ABG 54.4 mmHg (35.0-45.0); PO2 ABG 70.9 mmHg (80.0-100.0); PO2 FiO2 Ratio Arterial Blood 1.97 %; Reduced Hemoglobin 7.4 %THb (0-5.0); Site Drawn RIGHT RADIAL; pH ABG 7.339 (7.350-7.450)
[2020-09-16] MEDS: BUDESONIDE RESPULE NEB 0.5 MG/2 ML AMP 1 MG INHALATION ×2 (08:38→19:24)
[2020-09-16] MEDS: PREGABALIN (*CRX) 50 MG CAPSULE 200 MG PO ×2 (09:12→21:58)
[2020-09-16] MEDS: PENTOXIFYLLINE 400 MG TABCR PO ×2 (09:12→17:28)
[2020-09-16] MEDS: ACIDOPHILUS/BULGARICUS CHEWABLE TABLET 1 TABLET PO ×2 (09:12→17:26)
[2020-09-16] MEDS: FERROUS SULFATE 324 MG TABLET PO ×2 (09:12→17:26)
[2020-09-16] MEDS: carvediloL 3.125 MG TABLET PO ×2 (09:12→21:57)
[2020-09-16] MEDS: SERTRALINE HCL 25 MG TABLET PO (09:12)
[2020-09-16] MEDS: PANTOPRAZOLE 40 MG TABLET PO (09:12)
[2020-09-16] MEDS: CYANOCOBALAMIN 1,000 MCG TABLET 1000 MCG PO (09:12)
[2020-09-16] MEDS: CHOLECALCIFEROL 1,000 UNITS TABLET 1000 UNITS PO (09:12)
--- NOTE | 2020-09-16 11:49 | PM.PNPUL ---
Progress Note: A&P Assessment and Plan (1) COPD (chronic obstructive pulmonary disease): Qualifiers: COPD type: unspecified COPD Qualified Code(s): J44.9 - Chronic obstructive pulmonary disease, unspecified Code(s): J44.9 - Chronic obstructive pulmonary disease, unspecified Status: Chronic Assessment and Plan: She appears lethargic with slightly labored breathing this morning. vitals are stable. - continue albuterol to 2.5 mg Q6h from 5 mg - continue ipratopium 0.5 mg Q6h - increase pulmicort 1.0 mg Q12h - upon discharge d/c ipratropium and pulmicort and start Trelegy 100/62.5/25 mcg 1 puff daily - f/u with us in clinic in 2-4 weeks (2) Acute and chronic respiratory failure with hypercapnia: Code(s): J96.22 - Acute and chronic respiratory failure with hypercapnia Status: Chronic Assessment and Plan: Due to COPD exacerbation - will resume home Trilogy NIV and see if her ABG improves. It is of note that the patient is currently having a COPD exacerbation which makes the Trilogy less effective. We may have to switch to BiPAP therapy until her COPD exacerbation improves. - face mask may need to change to large size but ideally she would do better with nasal pillows + chin strap which can only be done at home - daily AM ABG until normalized (3) COPD exacerbation: Code(s): J44.1 - Chronic obstructive pulmonary disease with (acute) exacerbation Status: Acute Assessment and Plan: Is improving with systemic steroids and nebulized bronchodilators. Subjective Date/time seen: 09/16/20 11:49 Interval history: she is feeling better today and her ABG this morning has nearly normalized after using her trilogy last night. Review of Systems Review of Systems: All systems reviewed & are unremarkable except as noted in HPI and below Exam Const: General: cooperative, healthy appearing, awake and lethargic Nutritional Appearance: obese Orientation/consciousness: oriented to person, oriented to place, oriented to time and patient oriented x3 Limitations: physical limitations HENMT: Head: normal to inspection Eyes: General: appearance normal, both eyes and all related structures Neck: Neck: trachea midline and supple Resp: Effort & Inspection: labored Auscultation: breath sounds absent and diminished lung sounds Cardio: Jugular venous distension: no JVD Rate: regular rate Rhythm: regular rhythm Heart sounds: S1 normal heart sound present and S2 normal heart sound present GI: Inspection: normal to inspection Auscultation: normal bowel sounds Skin: General skin exam: normal color and no rashes or lesions noted Neuro: General: oriented to person, oriented to place, oriented to time and patient oriented x3 Cognition (Neuro): normal cognition Speech: normal speech Psych: Appearance: grossly normal and well kempt Mental Status: mental status grossly normal Objective Data Vital Signs Vital Signs: Vital Signs - 24 hr 09/15/20 12:00 09/15/20 13:11 09/15/20 14:00 Temperature 36.6 C Pulse Rate 70 74 98 Respiratory Rate 22 H Blood Pressure 141/71 H Pulse Oximetry 95 96 09/15/20 14:53 09/15/20 16:00 09/15/20 17:30 Temperature 36.5 C Pulse Rate 86 69 67 Respiratory Rate 18 23 H Blood Pressure 153/86 H Pulse Oximetry 92 97 09/15/20 18:00 09/15/20 20:00 09/15/20 21:41 Temperature 36.1 C L Pulse Rate 72 100 80 Respiratory Rate 24 H Blood Pressure 116/58 L Pulse Oximetry 92 09/15/20 22:21 09/15/20 22:31 09/15/20 22:32 Temperature Pulse Rate 88 81 86 Respiratory Rate 18 18 18 Blood Pressure Pulse Oximetry 94 09/15/20 22:38 09/15/20 23:58 09/16/20 00:00 Temperature 36.0 C L Pulse Rate 86 70 90 Respiratory Rate 22 H Blood Pressure 147/87 H Pulse Oximetry 95 93 90 09/16/20 02:00 09/16/20 04:00 09/16/20 04:03 Temperature 36.0 C L Pulse Rate 65 80 78 Respiratory Rate 20 18 Blood P
--- NOTE | 2020-09-16 13:18 | PCDIET ---
Nutrition Follow-Up Complete: Nutrition Diagnosis: Inadequate oral intake related to respiratory failure as evidenced by need for bipap, poor intake x several days. Nutrition Goal: Patient to consume 75% of meals/supplements or greater. Goal in progress. Patient with average of 55% meal consumption since 09/14/20 on heart healthy diet. Reports taking Ensure Enlive in chocolate flavor and would like to continue receiving it with meals. Last recorded weight is 119.6 kg which is decreased from last review. -I/O. Bowel Motility: +BM today. Labs Reviewed: Hgb (8.0), Hct (27.3), Glu (128), BUN (60), Cr (1.9), Cl (110), Ca (8.1) Meds Noted: Albuterol, Pulmicort, Coreg, Vitamin B12, Ferrous Sulfate, Lasix, Heparin, Atrovent, Lactinex, Synthroid, Solu Medrol, Protonix, Zocor, Vitamin D Additional Notes: No documented skin breakdown. Will continue to monitor with same goal. Nutrition Monitoring and Evaluation: Follow up every 5 days.
--- NOTE | 2020-09-16 14:07 | P.PNNP_ITS ---
Progress Note: A&P Assessment and Plan (1) KONRAD (acute kidney injury): Code(s): N17.9 - Acute kidney failure, unspecified Status: Acute Assessment and Plan: * suspect due to medication effect versus infection * creatinine is slowly improving * evaluation to date: - urine electrolytes are not pre renal - urine eosinophils are negative - renal ultrasound is negative for acute changes * follow trend of repeat labs and UOP (2) Acute and chronic respiratory failure with hypercapnia: Code(s): J96.22 - Acute and chronic respiratory failure with hypercapnia Status: Chronic Assessment and Plan: * multifactorial etiology: - COPD exacerbation - CO2 rentention - possible pneumonia - underlying AMANDA - bronchospasm * Pulmonary following with recommendations noted * follow respiratory status closely (3) Pneumonia: Qualifiers: Laterality: unspecified laterality Lung location: unspecified part of lung Pneumonia type: due to unspecified organism Qualified Code(s): J18.9 - Pneumonia, unspecified organism Code(s): J18.9 - Pneumonia, unspecified organism Status: Acute Assessment and Plan: * follow cultures * on antibiotics (4) Urinary retention: Code(s): R33.9 - Retention of urine, unspecified Status: Acute Assessment and Plan: * sevilla catheter in place * Urology following (5) Diarrhea: Qualifiers: Diarrhea type: unspecified type Qualified Code(s): R19.7 - Diarrhea, unspecified Code(s): R19.7 - Diarrhea, unspecified Status: Acute Assessment and Plan: * doing better in general * suspect possibly medication related - c. diff assay negative * continue supportive therapy (6) Hypertension: Code(s): I10 - Essential (primary) hypertension Status: Chronic Assessment and Plan: * well controlled at this time * follow trend of hemodynamics (7) Anemia: Code(s): D64.9 - Anemia, unspecified Status: Chronic Assessment and Plan: * due to KONRAD and acute illness(?) * follow trend of H/H Will continue to follow. Subjective Date/time seen: 09/16/20 14:07 Respiratory status and hemodynamics are doing quite well today; wore BiPAP last night and tolerated quite well with relative stability with regard to ABG this AM; no other issues/events overnight or earlier this AM to report at this time. Exam Narrative: Exam Narrative: General: WD/WN female in NAD Heart: normal S1 and S2; no rub Lungs: coarse with decreased breath sounds at bases Abdomen: soft, nontender, nondistended, positive bowel sounds Extremities: no cyanosis or clubbing; 1+ edema Skin: no rash or nodules Objective Data Vital Signs Vital Signs: Vital Signs Temp Pulse Resp BP Pulse Ox 09/16/20 14:00 83 09/16/20 12:38 35.8 C L 88 22 H 156/79 H 100 09/16/20 12:00 92 09/16/20 11:05 98 09/16/20 10:00 90 09/16/20 09:12 96 09/16/20 08:51 90 18 09/16/20 08:43 90 18 97 09/16/20 08:39 90 18 09/16/20 08:25 35.7 C L 91 22 H 141/81 H 94 09/16/20 08:00 98 97 09/16/20 04:08 70 18 09/16/20 04:06 78 96 09/16/20 04
--- NOTE | 2020-09-16 14:07 | PM.PNNEP ---
Progress Note: A&P Assessment and Plan (1) KONRAD (acute kidney injury): Code(s): N17.9 - Acute kidney failure, unspecified Status: Acute Assessment and Plan: suspect due to medication effect versus infection creatinine is slowly improving evaluation to date: - urine electrolytes are not pre renal - urine eosinophils are negative - renal ultrasound is negative for acute changes follow trend of repeat labs and UOP (2) Acute and chronic respiratory failure with hypercapnia: Code(s): J96.22 - Acute and chronic respiratory failure with hypercapnia Status: Chronic Assessment and Plan: multifactorial etiology: - COPD exacerbation - CO2 rentention - possible pneumonia - underlying AMANDA - bronchospasm Pulmonary following with recommendations noted follow respiratory status closely (3) Pneumonia: Qualifiers: Laterality: unspecified laterality Lung location: unspecified part of lung Pneumonia type: due to unspecified organism Qualified Code(s): J18.9 - Pneumonia, unspecified organism Code(s): J18.9 - Pneumonia, unspecified organism Status: Acute Assessment and Plan: follow cultures on antibiotics (4) Urinary retention: Code(s): R33.9 - Retention of urine, unspecified Status: Acute Assessment and Plan: sevilla catheter in place Urology following (5) Diarrhea: Qualifiers: Diarrhea type: unspecified type Qualified Code(s): R19.7 - Diarrhea, unspecified Code(s): R19.7 - Diarrhea, unspecified Status: Acute Assessment and Plan: doing better in general suspect possibly medication related - c. diff assay negative continue supportive therapy (6) Hypertension: Code(s): I10 - Essential (primary) hypertension Status: Chronic Assessment and Plan: well controlled at this time follow trend of hemodynamics (7) Anemia: Code(s): D64.9 - Anemia, unspecified Status: Chronic Assessment and Plan: due to KONRAD and acute illness(?) follow trend of H/H Will continue to follow. Subjective Date/time seen: 09/16/20 14:07 Respiratory status and hemodynamics are doing quite well today; wore BiPAP last night and tolerated quite well with relative stability with regard to ABG this AM; no other issues/events overnight or earlier this AM to report at this time. Exam Narrative: Exam Narrative: General: WD/WN female in NAD Heart: normal S1 and S2; no rub Lungs: coarse with decreased breath sounds at bases Abdomen: soft, nontender, nondistended, positive bowel sounds Extremities: no cyanosis or clubbing; 1+ edema Skin: no rash or nodules Objective Data Vital Signs Vital Signs: Vital Signs Temp Pulse Resp BP Pulse Ox 09/16/20 14:00 83 09/16/20 12:38 35.8 C L 88 22 H 156/79 H 100 09/16/20 12:00 92 09/16/20 11:05 98 09/16/20 10:00 90 09/16/20 09:12 96 09/16/20 08:51 90 18 09/16/20 08:43 90 18 97 09/16/20 08:39 90 18 09/16/20 08:25 35.7 C L 91 22 H 141/81 H 94 09/16/20 08:00 98 97 09/16/20 04:08 70 18 09/16/20 04:06 78 96 09/16/20 04:03 78 18 09/16/20 04:00 36.0 C L 80 20 173/81 H 94 09/16/20 02:00 65 09/16/20 00:00 90 90 09/15/20 23:58 36.0 C L 70 22 H 147/87 H 93 09/15/20 22:38 86 95 09/15/20 22:32 86 18 94 09/15/20 22:31 81 18 09/15/20 22:21 88 18 09/15/20 21:41 80 09/15/20 20:00 36.1 C L 100 24 H 116/58 L 92 Intake/Output Intake/Output: Intake & Output 09/13/20 09/14/20 09/15/20 09/16/20 23:59 23:59 23:59 23:59 Intake Total 540 6587 437 5269 Output Total 1400 1650 1050 1775 Balance -860 664 -187 -665 Meds/Results Medications: Active Medications Generic Name Dose
--- NOTE | 2020-09-16 14:56 | PM.IMPN ---
Progress Note: A&P Assessment and Plan (1) KONRAD (acute kidney injury): Code(s): N17.9 - Acute kidney failure, unspecified Status: Acute Assessment and Plan: Suspect due to volume depletion but consider related to abx (AIN?). Urine eos negative. Renal US no acute findings. Complement normal. Lasix, Entresto held. Some evidence of fluid overload on 09/09 so IV fluids stopped and Bumex x 1 given with good UOP. Cr improved over the past few days down to 1.9 today. Follow. (2) Acute hypercapnic respiratory failure: Code(s): J96.02 - Acute respiratory failure with hypercapnia Status: Acute Assessment and Plan: Patient had elevated pCO2 of 66 on admission. She was treated with BiPAP. COVID-19 negative. Apnea link 09/03 incomplete; no AHI or RI documented. Poker Prop Player adjusting BiPAP and O2 bleed in. Repeat apnea link 09/06 noted with RI and AHI 26 on room air. The apnea link 09/08 showing AHI and RI 9 on home unit with 4L bleed in. Currently on albuterol, atrovent and Pulmicort. on steroids. after bipap last pm ph better at 7.33 with co2 down to 54 (3) Pneumonia: Qualifiers: Laterality: unspecified laterality Lung location: unspecified part of lung Pneumonia type: due to unspecified organism Qualified Code(s): J18.9 - Pneumonia, unspecified organism Code(s): J18.9 - Pneumonia, unspecified organism Status: Acute Assessment and Plan: CT chest on admission showing a RML PNA. She was started on Levaquin, Vancomycin and Zosyn. Vanco/Zosyn were discontinued on 09/03 and started on IV Rocephin and oral doxycycline. Levaquin stopped after dose 5 on 09/04. Rocephin and Doxy stopped with last dose also on 09/04. No abx since 09/04/20. CXR 09/06 showing small amount of basilar atelectasis or pneumonia unchanged. No fevers and WBC remains normal. Continue to monitor. (4) Encephalopathy acute: Code(s): G93.40 - Encephalopathy, unspecified Status: Acute Assessment and Plan: Most likely metabolic encephalopathy felt related to CO2 retention. better each day , back to baseline now (5) Congestive heart failure (CHF): Qualifiers: Heart failure type: unspecified Heart failure chronicity: chronic Qualified Code(s): I50.9 - Heart failure, unspecified Code(s): I50.9 - Heart failure, unspecified Status: Chronic Assessment and Plan: No Echo listed. Most likely systolic CHF. Euvolemic. Lasix and Entresto held given the elevated Cr. continued coreg Tolerated Bumex. Resume home medications when renal function improves. Monitor fluid status. (6) Peripheral artery disease: Code(s): I73.9 - Peripheral vascular disease, unspecified Status: Chronic Assessment and Plan: Stable. Continue current meds. (7) COPD (chronic obstructive pulmonary disease): Qualifiers: COPD type: unspecified COPD Qualified Code(s): J44.9 - Chronic obstructive pulmonary disease, unspecified Code(s): J44.9 - Chronic obstructive pulmonary disease, unspecified Status: Chronic Assessment and Plan: With acute exacerbation. Continue Albuterol, Atrovent and Pulmicort. On Anoro inhaler treatment at home. Pulmonary following. (8) Peptic ulcer disease: Code(s): K27.9 - Peptic ulcer, site unspecified, unspecified as acute or chronic, without hemorrhage or perforation Status: Acute Assessment and Plan: Guaiac positive stools. EGD showing antral erosions. Colonoscopy showing multiple large polyps some too large to remove; biopsy taken, tubolovillous ademoma. Hemorrhoids noted with stigmata of bleeding which could explain the positive guaiac. Will need to go back on Xarelto but on hold for now. Appreciate GI input. Nicole consulted for discussion about partial colectomy but patient not sure she could tolerate this. Continue Protonix. Further discussion as outpati
--- NOTE | 2020-09-16 17:13 | PC.NURSE ---
This patient, Valorie Harris, was transferred to [facility] on 09/16/20 at 1713. Personal belongings sent with patient. Report given to LASHONDA Michelle. Appropriate documentation sent with patient.
[2020-09-16] MEDS: SIMVASTATIN 20 MG TABLET PO (21:58)
[2020-09-17] VITALS (16 sets, daily range): BP systolic 138–170; BP diastolic 56–78; PULSE 68–99; RESP 18–20; TEMP 36.1–36.4; O2SAT 92–100
[2020-09-17 05:56] LABS: Hematocrit 28.7 % (37.0-47.0); Hemoglobin 8.4 g/dL (12.0-15.0); Immature Granulocyte Absolute 0.08 K/mm3 (0.00-0.031); Immature Granulocyte Percent A 1.5 % (0-0.5); Lymphocytes Percent Auto 7.5 % (18.3-44.2); Mean Corpuscular HGB Conc 29.3 g/dl (32-36); Mean Corpuscular Hemoglobin 27.7 pg (26-34); Mean Corpuscular Volume 94.7 fl (80-100); Mean Platelet Volume 12.4 fl (7.4-10.4); Monocytes Absolute Auto 0.4 K/mm3 (0.1-0.6); Monocytes Percent Auto 7.2 % (2.6-8.5); Neutrophils Absolute Auto 4.5 K/mm3 (1.3-6.7); Neutrophils Percent Auto 83.8 % (45.5-73.1); Nucleated Red Blood Cells Perc 0.4 % (0.0-0.2); Platelet Count Result 158 k/mm3 (150-375); Red Blood Count 3.03 M/mm3 (4.2-5.4); Red Cell Distribution Width 15.9 % (11.5-14.5); White Blood Count 5.3 K/mm3 (4.5-10.0)
[2020-09-17] MEDS: HEPARIN SODIUM 5,000 UNITS/ML VIAL 5000 UNITS SUB-Q ×3 (06:06→21:44)
[2020-09-17] MEDS: LEVOTHYROXINE SODIUM 125 MCG TABLET PO (06:06)
[2020-09-17 06:08] LABS: Albumin Level 3.8 g/dL (3.5-5.1); Anion Gap 3 mmol/L (8-16); Blood Urea Nitrogen 64 mg/dL (7-17); Calcium 8.3 mg/dL (8.4-10.2); Carbon Dioxide 32 mmol/L (22-30); Chloride 109 mmol/L (98-107); Estimated CRCL calculation 35 ml/min; Estimated Glomerular Filt Rate 29; Glucose 117 mg/dL (65-105); Phosphorus 3.7 mg/dL (2.5-4.5); Sodium 144 mmol/L (137-145)
[2020-09-17 06:25] LABS: Hypochromasia 1+ (NORMAL); Ovalocytes 1+ (NORMAL); Platelet Estimate Adequate (Adequate)
[2020-09-17 07:53] LABS: Alveolar/Arterial O2 Gradient 55.1 mmHg; Carboxyhemoglobin 0.3 % THb (0-2.0); Fractional Inspired Oxygen 28 %; HCO3 ABG 29.9 mEq/l (22.0-26.0); Methemoglobin ABG 0.3 %THb (0-1.5); Oxygen Content ABG 11.7 %vol (16.0-22.0); Oxygen Saturation ABG 89.1 % (95.0-100.0); Oxyhemoglobin 88.6 % THb (90.0-100.0); PO2 ABG 65.1 mmHg (80.0-100.0); PO2 FiO2 Ratio Arterial Blood 2.33 %; Reduced Hemoglobin 10.8 %THb (0-5.0); Total Hemoglobin 9.3 g/dL (12.0-18.0)
[2020-09-17 07:55] LABS: pH ABG 7.266 (7.350-7.450)
[2020-09-17 07:56] LABS: Device NASAL CANNULA; Modified Allen's Test Pass; PCO2 ABG 67.3 mmHg (35.0-45.0); Site Drawn RIGHT RADIAL
[2020-09-17] MEDS: SERTRALINE HCL 25 MG TABLET PO (08:03)
[2020-09-17] MEDS: ACIDOPHILUS/BULGARICUS CHEWABLE TABLET 1 TABLET PO ×2 (08:03→17:13)
[2020-09-17] MEDS: PENTOXIFYLLINE 400 MG TABCR PO ×2 (08:03→17:13)
[2020-09-17] MEDS: ALBUTEROL SULFATE NEB 2.5 MG/0.5 ML INH INHALATION ×4 (08:03→20:48)
[2020-09-17] MEDS: PANTOPRAZOLE 40 MG TABLET PO (08:03)
[2020-09-17] MEDS: carvediloL 3.125 MG TABLET PO ×2 (08:03→21:43)
[2020-09-17] MEDS: CYANOCOBALAMIN 1,000 MCG TABLET 1000 MCG PO (08:04)
[2020-09-17] MEDS: BUDESONIDE RESPULE NEB 0.5 MG/2 ML AMP 1 MG INHALATION ×2 (08:04→20:48)
[2020-09-17] MEDS: FERROUS SULFATE 324 MG TABLET PO ×2 (08:04→17:13)
[2020-09-17] MEDS: methylPREDNISolone SOD SUCC 125 MG VIAL 60 MG IV PUSH ×2 (08:04→21:44)
[2020-09-17] MEDS: IPRATROPIUM BR 0.02% INH SOLN 0.5 MG/2.5 ML VIAL INHALATION ×4 (08:04→20:48)
[2020-09-17] MEDS: PREGABALIN (*CRX) 50 MG CAPSULE 200 MG PO ×2 (08:08→21:44)
[2020-09-17] MEDS: CHOLECALCIFEROL 1,000 UNITS TABLET 1000 UNITS PO (08:53)
[2020-09-17] MEDS: ACETAMINOPHEN 500 MG TABLET 1000 MG PO (10:36)
--- NOTE | 2020-09-17 14:18 | PM.IMPN ---
Progress Note: A&P Assessment and Plan (1) KONRAD (acute kidney injury): Code(s): N17.9 - Acute kidney failure, unspecified Status: Acute Assessment and Plan: Suspect due to volume depletion but consider related to abx (AIN?). Urine eos negative. Renal US no acute findings. Complement normal. Lasix, Entresto held. Some evidence of fluid overload on 09/09 so IV fluids stopped and Bumex x 1 given with good UOP. Cr improved over the past few days down to 1.7 today. Follow. (2) Acute hypercapnic respiratory failure: Code(s): J96.02 - Acute respiratory failure with hypercapnia Status: Acute Assessment and Plan: Patient had elevated pCO2 of 66 on admission. She was treated with BiPAP. COVID-19 negative. Apnea link 09/03 incomplete; no AHI or RI documented. Replenishment Analyst adjusting BiPAP and O2 bleed in. Repeat apnea link 09/06 noted with RI and AHI 26 on room air. The apnea link 09/08 showing AHI and RI 9 on home unit with 4L bleed in. Currently on albuterol, atrovent and Pulmicort. on steroids. At 60 Q 12 IV After trilogy last evening pCO2 shekhar again with falling pH and patient feels worse. Discussed with assessment rn and will go back to BiPAP and significantly the facility she is going to rehab at will while BiPAP but not trilogy (3) Pneumonia: Qualifiers: Laterality: unspecified laterality Lung location: unspecified part of lung Pneumonia type: due to unspecified organism Qualified Code(s): J18.9 - Pneumonia, unspecified organism Code(s): J18.9 - Pneumonia, unspecified organism Status: Acute Assessment and Plan: CT chest on admission showing a RML PNA. She was started on Levaquin, Vancomycin and Zosyn. Vanco/Zosyn were discontinued on 09/03 and started on IV Rocephin and oral doxycycline. Levaquin stopped after dose 5 on 09/04. Rocephin and Doxy stopped with last dose also on 09/04. No abx since 09/04/20. CXR 09/06 showing small amount of basilar atelectasis or pneumonia unchanged. No fevers and WBC remains normal. Continue to monitor. (4) Encephalopathy acute: Code(s): G93.40 - Encephalopathy, unspecified Status: Acute Assessment and Plan: Most likely metabolic encephalopathy felt related to CO2 retention. better each day , back to baseline now (5) Congestive heart failure (CHF): Qualifiers: Heart failure type: unspecified Heart failure chronicity: chronic Qualified Code(s): I50.9 - Heart failure, unspecified Code(s): I50.9 - Heart failure, unspecified Status: Chronic Assessment and Plan: No Echo listed. Most likely systolic CHF. Euvolemic. Lasix and Entresto held given the elevated Cr. ,continued coreg Tolerated Bumex. Will resume Entresto at starting dose this p.m. since pressure rising and creatinine falling. Monitor fluid status. (6) Peripheral artery disease: Code(s): I73.9 - Peripheral vascular disease, unspecified Status: Chronic Assessment and Plan: Stable. Continue current meds. (7) COPD (chronic obstructive pulmonary disease): Qualifiers: COPD type: unspecified COPD Qualified Code(s): J44.9 - Chronic obstructive pulmonary disease, unspecified Code(s): J44.9 - Chronic obstructive pulmonary disease, unspecified Status: Chronic Assessment and Plan: With acute exacerbation. Continue Albuterol, Atrovent and Pulmicort. On Anoro inhaler treatment at home. Pulmonary following. Taper steroids (8) Peptic ulcer disease: Code(s): K27.9 - Peptic ulcer, site unspecified, unspecified as acute or chronic, without hemorrhage or perforation Status: Acute Assessment and Plan: Guaiac positive stools. EGD showing antral erosions. Colonoscopy showing multiple large polyps some too large to remove; biopsy taken, tubolovillous ademoma. Hemorrhoids noted with stigmata of bleeding which could explain the posi
--- NOTE | 2020-09-17 16:25 | P.PNNP_ITS ---
Progress Note: A&P Assessment and Plan (1) KONRAD (acute kidney injury): Code(s): N17.9 - Acute kidney failure, unspecified Status: Acute Assessment and Plan: * suspect due to medication effect versus infection * creatinine is slowly improving * evaluation to date: - urine electrolytes are not pre renal - urine eosinophils are negative - renal ultrasound is negative for acute changes * follow trend of repeat labs and UOP (2) Acute and chronic respiratory failure with hypercapnia: Code(s): J96.22 - Acute and chronic respiratory failure with hypercapnia Status: Chronic Assessment and Plan: * multifactorial etiology: - COPD exacerbation - CO2 rentention - possible pneumonia - underlying AMANDA - bronchospasm * Pulmonary following with recommendations noted * follow respiratory status closely (3) Pneumonia: Qualifiers: Laterality: unspecified laterality Lung location: unspecified part of lung Pneumonia type: due to unspecified organism Qualified Code(s): J18.9 - Pneumonia, unspecified organism Code(s): J18.9 - Pneumonia, unspecified organism Status: Acute Assessment and Plan: * follow cultures (negative to date) * completed course of antibiotics (4) Urinary retention: Code(s): R33.9 - Retention of urine, unspecified Status: Acute Assessment and Plan: * sevilla catheter in place * Urology following (5) Diarrhea: Qualifiers: Diarrhea type: unspecified type Qualified Code(s): R19.7 - Diarrhea, unspecified Code(s): R19.7 - Diarrhea, unspecified Status: Acute Assessment and Plan: * doing better in general * suspect possibly medication related - c. diff assay negative * continue supportive therapy (6) Hypertension: Code(s): I10 - Essential (primary) hypertension Status: Chronic Assessment and Plan: * well controlled at this time * follow trend of hemodynamics (7) Anemia: Code(s): D64.9 - Anemia, unspecified Status: Chronic Assessment and Plan: * due to KONRAD and acute illness(?) * follow trend of H/H Will continue to follow. Subjective Date/time seen: 09/17/20 16:25 Patient feels a bit more short of breath today -- she apparently did not wear her BiPAP last night and ABG this AM shows worsening CO2 retention; BiPAP resumed today. Exam Narrative: Exam Narrative: General: WD/WN female in NAD Heart: normal S1 and S2; no rub Lungs: coarse with decreased breath sounds at bases Abdomen: soft, nontender, nondistended, positive bowel sounds Extremities: no cyanosis or clubbing; 1+ edema Skin: warm and dry Objective Data Vital Signs Vital Signs: Vital Signs Temp Pulse Resp BP Pulse Ox 09/17/20 14:50 90 20 09/17/20 14:40 88 20 09/17/20 13:45 78 20 92 09/17/20 13:35 36.3 C L 72 20 170/78 H 100 09/17/20 12:09 36.2 C L 74 20 138/58 L 99 09/17/20 08:06 90 20 93 09/17/20 08:03 96 09/17/20 08:00 36.4 C L 84 20 147/56 H 93 09/17/20 06:00 36.1 C L 99 18 148/78 H 96 09/17/20 01:47 88 20 09/17/20 01:39 87 20 09/16/20 23:57 95 97 09/16/20 22:00 36.2 C L 99 20 127/7
--- NOTE | 2020-09-17 16:25 | PM.PNNEP ---
Progress Note: A&P Assessment and Plan (1) KONRAD (acute kidney injury): Code(s): N17.9 - Acute kidney failure, unspecified Status: Acute Assessment and Plan: suspect due to medication effect versus infection creatinine is slowly improving evaluation to date: - urine electrolytes are not pre renal - urine eosinophils are negative - renal ultrasound is negative for acute changes follow trend of repeat labs and UOP (2) Acute and chronic respiratory failure with hypercapnia: Code(s): J96.22 - Acute and chronic respiratory failure with hypercapnia Status: Chronic Assessment and Plan: multifactorial etiology: - COPD exacerbation - CO2 rentention - possible pneumonia - underlying AMANDA - bronchospasm Pulmonary following with recommendations noted follow respiratory status closely (3) Pneumonia: Qualifiers: Laterality: unspecified laterality Lung location: unspecified part of lung Pneumonia type: due to unspecified organism Qualified Code(s): J18.9 - Pneumonia, unspecified organism Code(s): J18.9 - Pneumonia, unspecified organism Status: Acute Assessment and Plan: follow cultures (negative to date) completed course of antibiotics (4) Urinary retention: Code(s): R33.9 - Retention of urine, unspecified Status: Acute Assessment and Plan: sevilla catheter in place Urology following (5) Diarrhea: Qualifiers: Diarrhea type: unspecified type Qualified Code(s): R19.7 - Diarrhea, unspecified Code(s): R19.7 - Diarrhea, unspecified Status: Acute Assessment and Plan: doing better in general suspect possibly medication related - c. diff assay negative continue supportive therapy (6) Hypertension: Code(s): I10 - Essential (primary) hypertension Status: Chronic Assessment and Plan: well controlled at this time follow trend of hemodynamics (7) Anemia: Code(s): D64.9 - Anemia, unspecified Status: Chronic Assessment and Plan: due to KONRAD and acute illness(?) follow trend of H/H Will continue to follow. Subjective Date/time seen: 09/17/20 16:25 Patient feels a bit more short of breath today -- she apparently did not wear her BiPAP last night and ABG this AM shows worsening CO2 retention; BiPAP resumed today. Exam Narrative: Exam Narrative: General: WD/WN female in NAD Heart: normal S1 and S2; no rub Lungs: coarse with decreased breath sounds at bases Abdomen: soft, nontender, nondistended, positive bowel sounds Extremities: no cyanosis or clubbing; 1+ edema Skin: warm and dry Objective Data Vital Signs Vital Signs: Vital Signs Temp Pulse Resp BP Pulse Ox 09/17/20 14:50 90 20 09/17/20 14:40 88 20 09/17/20 13:45 78 20 92 09/17/20 13:35 36.3 C L 72 20 170/78 H 100 09/17/20 12:09 36.2 C L 74 20 138/58 L 99 09/17/20 08:06 90 20 93 09/17/20 08:03 96 09/17/20 08:00 36.4 C L 84 20 147/56 H 93 09/17/20 06:00 36.1 C L 99 18 148/78 H 96 09/17/20 01:47 88 20 09/17/20 01:39 87 20 09/16/20 23:57 95 97 09/16/20 22:00 36.2 C L 99 20 127/77 98 09/16/20 21:57 99 09/16/20 20:00 98 09/16/20 19:45 84 20 09/16/20 19:24 91 24 H 93 Intake/Output Intake/Output: Intake & Output 09/14/20 09/15/20 09/16/20 09/17/20 23:59 23:59 23:59 23:59 Intake Total 8811 355 4335 1890 Output Total 1650 1050 1925 1850 Balance 220 -290 -130 40 Meds/Results Medications: Active Medications Generic Name Dose Route Start Last Admin Trade Name Desirae PRN Reason Stop Dose Admin Acetaminophen 1,000 mg 08/31/20 01:04 09/17/20 10:36 Acetaminophen 500 Mg Tablet PO 1,000 mg Q6H PRN Administration Mild Pain (1-10) Or Fever
--- NOTE | 2020-09-17 20:05 | PM.PNPUL ---
Progress Note: A&P Assessment and Plan (1) COPD (chronic obstructive pulmonary disease): Qualifiers: COPD type: unspecified COPD Qualified Code(s): J44.9 - Chronic obstructive pulmonary disease, unspecified Code(s): J44.9 - Chronic obstructive pulmonary disease, unspecified Status: Chronic Assessment and Plan: She appears lethargic with slightly labored breathing this morning. vitals are stable. - continue albuterol to 2.5 mg Q6h from 5 mg - continue ipratopium 0.5 mg Q6h - increase pulmicort 1.0 mg Q12h - upon discharge d/c ipratropium and pulmicort and start Trelegy 100/62.5/25 mcg 1 puff daily - f/u with us in clinic in 2-4 weeks (2) Acute and chronic respiratory failure with hypercapnia: Code(s): J96.22 - Acute and chronic respiratory failure with hypercapnia Status: Chronic Assessment and Plan: Due to COPD exacerbation and probable underlying AMANDA - change from Triology to BiPAP 07/06 with back up rate of 18 and repeat ABG tomorrow (3) COPD exacerbation: Code(s): J44.1 - Chronic obstructive pulmonary disease with (acute) exacerbation Status: Acute Assessment and Plan: Is improving with systemic steroids and nebulized bronchodilators. Subjective Date/time seen: 09/17/20 20:05 Interval history: She is more lethargic and tired today after being on her home Trilogy settings and blood gas is worse Review of Systems Review of Systems: All systems reviewed & are unremarkable except as noted in HPI and below Exam Const: General: cooperative, healthy appearing and lethargic Nutritional Appearance: obese Orientation/consciousness: oriented to person, oriented to place, oriented to time, patient oriented x3 and lethargic Limitations: physical limitations HENMT: Head: normal to inspection Eyes: General: appearance normal, both eyes and all related structures Neck: Neck: trachea midline and supple Resp: Effort & Inspection: labored Auscultation: breath sounds absent and diminished lung sounds Cardio: Jugular venous distension: no JVD Rate: regular rate Rhythm: regular rhythm Heart sounds: S1 normal heart sound present and S2 normal heart sound present GI: Inspection: normal to inspection Auscultation: normal bowel sounds Skin: General skin exam: normal color and no rashes or lesions noted Neuro: General: oriented to person, oriented to place, oriented to time and patient oriented x3 Cognition (Neuro): normal cognition Speech: normal speech Psych: Appearance: grossly normal and well kempt Mental Status: mental status grossly normal Objective Data Vital Signs Vital Signs: Vital Signs - 24 hr 09/17/20 20:50 09/17/20 20:51 09/17/20 21:43 Temperature Pulse Rate 82 82 68 Respiratory Rate 20 20 Blood Pressure Pulse Oximetry 93 09/17/20 22:00 09/18/20 02:32 09/18/20 02:35 Temperature 36.2 C L Pulse Rate 68 91 91 Respiratory Rate 20 20 20 Blood Pressure 138/62 Pulse Oximetry 98 93 09/18/20 06:00 09/18/20 07:39 09/18/20 08:26 Temperature 36.1 C L 36.5 C Pulse Rate 66 96 96 Respiratory Rate 20 19 Blood Pressure 131/67 106/82 Pulse Oximetry 98 100 09/18/20 08:34 09/18/20 09:15 09/18/20 14:15 Temperature Pulse Rate 92 89 Respiratory Rate 20 20 Blood Pressure Pulse Oximetry 98 95 09/18/20 15:29 09/18/20 19:48 09/18/20 20:00 Temperature 36.4 C Pulse Rate 90 90 89 Respiratory Rate 20 20 20 Blood Pressure 136/70 Pulse Oximetry 100 94 Intake/Output Intake/Output: Intake & Output 09/15/20 09/16/20 09/17/20 09/18/20 23:59 23:59 23:59 23:59 Intake Total 760 1795 1890 2120 Output Total 1050 1925 1850 2600 Balance -290 -130 40 -480 Meds/Results Medications: Active Medications Generic Name Dose Route Start Last Admin Trade Name Freq PRN Reason Stop Dose Admin Acetaminophen 1,000 mg 08/31/20 01:04 09/17/20 10:36 Acetaminophen 500 Mg Tablet PO 1,000 mg Q
[2020-09-17] MEDS: SIMVASTATIN 20 MG TABLET PO (21:44)
[2020-09-17] MEDS: SACUBITRIL/VALSARTAN 24-26 MG TABLET 1 TAB PO (21:44)
[2020-09-17 22:27] LABS: SARS-CoV-2 RNA PCR Negative
[2020-09-18] VITALS (13 sets, daily range): BP systolic 106–136; BP diastolic 59–82; PULSE 66–99; RESP 19–20; TEMP 36.1–36.6; O2SAT 93–100
[2020-09-18] MEDS: ALBUTEROL SULFATE NEB 2.5 MG/0.5 ML INH INHALATION ×3 (02:30→19:47)
[2020-09-18] MEDS: IPRATROPIUM BR 0.02% INH SOLN 0.5 MG/2.5 ML VIAL INHALATION ×3 (02:30→19:47)
[2020-09-18 05:15] LABS: Hematocrit 26.8 % (37.0-47.0); Hemoglobin 7.9 g/dL (12.0-15.0); Immature Granulocyte Absolute 0.05 K/mm3 (0.00-0.031); Immature Granulocyte Percent A 1.3 % (0-0.5); Lymphocytes Absolute Auto 0.41 K/mm3 (0.9-3.2); Lymphocytes Percent Auto 10.8 % (18.3-44.2); Mean Corpuscular HGB Conc 29.5 g/dl (32-36); Mean Corpuscular Hemoglobin 27.8 pg (26-34); Mean Corpuscular Volume 94.4 fl (80-100); Mean Platelet Volume 12.3 fl (7.4-10.4); Monocytes Absolute Auto 0.3 K/mm3 (0.1-0.6); Monocytes Percent Auto 6.6 % (2.6-8.5); Neutrophils Absolute Auto 3.1 K/mm3 (1.3-6.7); Neutrophils Percent Auto 81.3 % (45.5-73.1); Nucleated Red Blood Cells Perc 0.5 % (0.0-0.2); Platelet Count Result 116 k/mm3 (150-375); Red Blood Count 2.84 M/mm3 (4.2-5.4); Red Cell Distribution Width 15.9 % (11.5-14.5); White Blood Count 3.8 K/mm3 (4.5-10.0)
[2020-09-18 05:18] LABS: Alveolar/Arterial O2 Gradient 116.7 mmHg; Base Excess ABG 4.8 mEq/l (+/-2.0); Carboxyhemoglobin 0.3 % THb (0-2.0); Fractional Inspired Oxygen 35 %; HCO3 ABG 31.3 mEq/l (22.0-26.0); Methemoglobin ABG 0.4 %THb (0-1.5); Oxygen Content ABG 11.3 %vol (16.0-22.0); Oxygen Saturation ABG 91.6 % (95.0-100.0); Oxyhemoglobin 90.5 % THb (90.0-100.0); PCO2 ABG 57.8 mmHg (35.0-45.0); PO2 ABG 65.7 mmHg (80.0-100.0); PO2 FiO2 Ratio Arterial Blood 1.88 %; Reduced Hemoglobin 8.8 %THb (0-5.0); Total Hemoglobin 8.8 g/dL (12.0-18.0); pH ABG 7.351 (7.350-7.450)
[2020-09-18 05:19] LABS: Device BIPAP; Expiratory Pressure 10 cmH2O; Inspiratory Pressure 20 cmH2O; Modified Allen's Test Pass; Site Drawn RIGHT RADIAL
[2020-09-18] MEDS: HEPARIN SODIUM 5,000 UNITS/ML VIAL 5000 UNITS SUB-Q ×3 (05:26→22:26)
[2020-09-18] MEDS: LEVOTHYROXINE SODIUM 125 MCG TABLET PO (05:30)
[2020-09-18 06:05] LABS: Anion Gap -1 mmol/L (8-16); Blood Urea Nitrogen 53 mg/dL (7-17); Calcium 7.8 mg/dL (8.4-10.2); Carbon Dioxide 31 mmol/L (22-30); Chloride 110 mmol/L (98-107); Estimated CRCL calculation 45 ml/min; Estimated Glomerular Filt Rate 40; Glucose 133 mg/dL (65-105); Potassium 4.9 mmol/L (3.4-5.0); Sodium 140 mmol/L (137-145)
[2020-09-18] MEDS: ACIDOPHILUS/BULGARICUS CHEWABLE TABLET 1 TABLET PO ×2 (08:26→17:25)
[2020-09-18] MEDS: FERROUS SULFATE 324 MG TABLET PO ×2 (08:26→17:25)
[2020-09-18] MEDS: PENTOXIFYLLINE 400 MG TABCR PO ×2 (08:26→17:25)
[2020-09-18] MEDS: CHOLECALCIFEROL 1,000 UNITS TABLET 1000 UNITS PO (08:26)
[2020-09-18] MEDS: carvediloL 3.125 MG TABLET PO ×2 (08:26→21:52)
[2020-09-18] MEDS: CYANOCOBALAMIN 1,000 MCG TABLET 1000 MCG PO (08:27)
[2020-09-18] MEDS: methylPREDNISolone SOD SUCC 125 MG VIAL 60 MG IV PUSH (08:27)
[2020-09-18] MEDS: PANTOPRAZOLE 40 MG TABLET PO (08:27)
[2020-09-18] MEDS: SERTRALINE HCL 25 MG TABLET PO (08:27)
[2020-09-18] MEDS: SACUBITRIL/VALSARTAN 24-26 MG TABLET 1 TAB PO ×2 (08:27→21:52)
[2020-09-18] MEDS: PREGABALIN (*CRX) 50 MG CAPSULE 200 MG PO ×2 (08:32→21:45)
--- NOTE | 2020-09-18 11:52 | PM.IMPN ---
Progress Note: A&P Assessment and Plan (1) KONRAD (acute kidney injury): Code(s): N17.9 - Acute kidney failure, unspecified Status: Acute Assessment and Plan: Suspect due to volume depletion but consider related to abx (AIN?). Urine eos negative. Renal US no acute findings. Complement normal. Lasix, Entresto held initially and Entresto restarted 09/17. . Cr continues to improve 1.3 today.. Follow. (2) Acute hypercapnic respiratory failure: Code(s): J96.02 - Acute respiratory failure with hypercapnia Status: Acute Assessment and Plan: Patient had elevated pCO2 of 66 on admission. She was treated with BiPAP. COVID-19 negative. Apnea link 09/03 incomplete; no AHI or RI documented. Nursing Assistant adjusting BiPAP and O2 bleed in. Repeat apnea link 09/06 noted with RI and AHI 26 on room air. The apnea link 09/08 showing AHI and RI 9 on home unit with 4L bleed in. Currently on albuterol, atrovent and Pulmicort. DC IV steroids and change to prednisone 40 daily Patient use trilogy at assisted living and did well last evening with BiPAP. She will use BiPAP at the group home but needs the trilogy when she returns to assisted living. Currently the settings on the trilogy cannot be accessed and the plan is to access a.m. 09/19 and make necessary changes so patient would be able to be discharged from the group home to assisted living when the time arises (3) Pneumonia: Qualifiers: Laterality: unspecified laterality Lung location: unspecified part of lung Pneumonia type: due to unspecified organism Qualified Code(s): J18.9 - Pneumonia, unspecified organism Code(s): J18.9 - Pneumonia, unspecified organism Status: Acute Assessment and Plan: CT chest on admission showing a RML PNA. She was started on Levaquin, Vancomycin and Zosyn. Vanco/Zosyn were discontinued on 09/03 and started on IV Rocephin and oral doxycycline. Levaquin stopped after dose 5 on 09/04. Rocephin and Doxy stopped with last dose also on 09/04. No abx since 09/04/20. CXR 09/06 showing small amount of basilar atelectasis or pneumonia unchanged. No fevers and WBC remains normal. Continue to monitor. (4) Encephalopathy acute: Code(s): G93.40 - Encephalopathy, unspecified Status: Acute Assessment and Plan: Most likely metabolic encephalopathy felt related to CO2 retention. better each day , back to baseline now (5) Congestive heart failure (CHF): Qualifiers: Heart failure type: unspecified Heart failure chronicity: chronic Qualified Code(s): I50.9 - Heart failure, unspecified Code(s): I50.9 - Heart failure, unspecified Status: Chronic Assessment and Plan: No Echo listed. Most likely systolic CHF. Euvolemic. Lasix and Entresto held given the elevated Cr. ,continued coreg Tolerated Bumex. resumed Entresto at starting dose 1/30 p.m. since pressure rising and creatinine falling. Monitor fluid status. (6) Peripheral artery disease: Code(s): I73.9 - Peripheral vascular disease, unspecified Status: Chronic Assessment and Plan: Stable. Continue current meds. (7) COPD (chronic obstructive pulmonary disease): Qualifiers: COPD type: unspecified COPD Qualified Code(s): J44.9 - Chronic obstructive pulmonary disease, unspecified Code(s): J44.9 - Chronic obstructive pulmonary disease, unspecified Status: Chronic Assessment and Plan: With acute exacerbation. Continue Albuterol, Atrovent and Pulmicort. On Anoro inhaler treatment at home. Pulmonary following. Taper steroids to p.o. (8) Peptic ulcer disease: Code(s): K27.9 - Peptic ulcer, site unspecified, unspecified as acute or chronic, without hemorrhage or perforation Status: Acute Assessment and Plan: Guaiac positive stools. EGD showing antral erosions. Colonoscopy showing multiple large polyps some too large to
--- NOTE | 2020-09-18 12:52 | PM.PNNEP ---
Progress Note: A&P Assessment and Plan (1) KONRAD (acute kidney injury): Code(s): N17.9 - Acute kidney failure, unspecified Status: Acute Assessment and Plan: suspect due to medication effect versus infection creatinine is slowly improving (has normal baseline creatinine) evaluation to date: - urine electrolytes are not pre renal - urine eosinophils are negative - renal ultrasound is negative for acute changes follow trend of repeat labs and UOP (2) Acute and chronic respiratory failure with hypercapnia: Code(s): J96.22 - Acute and chronic respiratory failure with hypercapnia Status: Chronic Assessment and Plan: multifactorial etiology: - COPD exacerbation - CO2 rentention - possible pneumonia - underlying AMANDA - bronchospasm Pulmonary following with recommendations noted follow respiratory status closely (3) Pneumonia: Qualifiers: Laterality: unspecified laterality Lung location: unspecified part of lung Pneumonia type: due to unspecified organism Qualified Code(s): J18.9 - Pneumonia, unspecified organism Code(s): J18.9 - Pneumonia, unspecified organism Status: Acute Assessment and Plan: follow cultures (negative to date) completed course of antibiotics (4) Urinary retention: Code(s): R33.9 - Retention of urine, unspecified Status: Acute Assessment and Plan: sevilla catheter in place Urology following (5) Diarrhea: Qualifiers: Diarrhea type: unspecified type Qualified Code(s): R19.7 - Diarrhea, unspecified Code(s): R19.7 - Diarrhea, unspecified Status: Acute Assessment and Plan: doing better in general suspect possibly medication related - c. diff assay negative continue supportive therapy (6) Hypertension: Code(s): I10 - Essential (primary) hypertension Status: Chronic Assessment and Plan: well controlled at this time follow trend of hemodynamics (7) Anemia: Code(s): D64.9 - Anemia, unspecified Status: Chronic Assessment and Plan: due to KONRAD and acute illness(?) follow trend of H/H Will continue to follow. Subjective Date/time seen: 09/18/20 12:52 Doing significantly better today given use of BiPAP overnight -- breathing and mental status stable if not better at this time; no other acute events/issues overnight; no apparent distress to report either. Exam Narrative: Exam Narrative: General: WD/WN female in NAD Heart: normal S1 and S2; no rub Lungs: coarse with decreased breath sounds at bases Abdomen: soft, nontender, nondistended, positive bowel sounds Extremities: no cyanosis or clubbing; 1+ edema Skin: warm and dry Objective Data Vital Signs Vital Signs: Vital Signs Temp Pulse Resp BP Pulse Ox 09/18/20 09:15 92 20 95 09/18/20 08:34 98 09/18/20 08:26 96 09/18/20 07:39 36.5 C 96 19 106/82 100 09/18/20 06:00 36.1 C L 66 20 131/67 98 09/18/20 02:35 91 20 09/18/20 02:32 91 20 93 09/17/20 22:00 36.2 C L 68 20 138/62 98 09/17/20 21:43 68 09/17/20 20:51 82 20 09/17/20 20:50 82 20 93 Intake/Output Intake/Output: Intake & Output 09/15/20 09/16/20 09/17/20 09/18/20 23:59 23:59 23:59 23:59 Intake Total 760 1795 1890 1820 Output Total 1050 1925 1850 2600 Balance -290 -130 40 -780 Meds/Results Medications: Active Medications Generic Name Dose Route Start Last Admin Trade Name Freq PRN Reason Stop Dose Admin Acetaminophen 1,000 mg 08/31/20 01:04 09/17/20 10:36 Acetaminophen 500 Mg Tablet PO 1,000 mg Q6H PRN Administration Mild Pain (1-10) Or Fever Albuterol 2.5 mg 09/10/20 10:00 09/18/20 14:13 Albuterol Sulfate Neb 2.5 Mg/0.5 Ml Inh INHALATION 2.5 mg Q6HRT GUCCI Administration
--- NOTE | 2020-09-18 12:52 | P.PNNP_ITS ---
Progress Note: A&P Assessment and Plan (1) KONRAD (acute kidney injury): Code(s): N17.9 - Acute kidney failure, unspecified Status: Acute Assessment and Plan: * suspect due to medication effect versus infection * creatinine is slowly improving (has normal baseline creatinine) * evaluation to date: - urine electrolytes are not pre renal - urine eosinophils are negative - renal ultrasound is negative for acute changes * follow trend of repeat labs and UOP (2) Acute and chronic respiratory failure with hypercapnia: Code(s): J96.22 - Acute and chronic respiratory failure with hypercapnia Status: Chronic Assessment and Plan: * multifactorial etiology: - COPD exacerbation - CO2 rentention - possible pneumonia - underlying AMANDA - bronchospasm * Pulmonary following with recommendations noted * follow respiratory status closely (3) Pneumonia: Qualifiers: Laterality: unspecified laterality Lung location: unspecified part of lung Pneumonia type: due to unspecified organism Qualified Code(s): J18.9 - Pneumonia, unspecified organism Code(s): J18.9 - Pneumonia, unspecified organism Status: Acute Assessment and Plan: * follow cultures (negative to date) * completed course of antibiotics (4) Urinary retention: Code(s): R33.9 - Retention of urine, unspecified Status: Acute Assessment and Plan: * sevilla catheter in place * Urology following (5) Diarrhea: Qualifiers: Diarrhea type: unspecified type Qualified Code(s): R19.7 - Diarrhea, unspecified Code(s): R19.7 - Diarrhea, unspecified Status: Acute Assessment and Plan: * doing better in general * suspect possibly medication related - c. diff assay negative * continue supportive therapy (6) Hypertension: Code(s): I10 - Essential (primary) hypertension Status: Chronic Assessment and Plan: * well controlled at this time * follow trend of hemodynamics (7) Anemia: Code(s): D64.9 - Anemia, unspecified Status: Chronic Assessment and Plan: * due to KONRAD and acute illness(?) * follow trend of H/H Will continue to follow. Subjective Date/time seen: 09/18/20 12:52 Doing significantly better today given use of BiPAP overnight -- breathing and mental status stable if not better at this time; no other acute events/issues overnight; no apparent distress to report either. Exam Narrative: Exam Narrative: General: WD/WN female in NAD Heart: normal S1 and S2; no rub Lungs: coarse with decreased breath sounds at bases Abdomen: soft, nontender, nondistended, positive bowel sounds Extremities: no cyanosis or clubbing; 1+ edema Skin: warm and dry Objective Data Vital Signs Vital Signs: Vital Signs Temp Pulse Resp BP Pulse Ox 09/18/20 09:15 92 20 95 09/18/20 08:34 98 09/18/20 08:26 96 09/18/20 07:39 36.5 C 96 19 106/82 100 09/18/20 06:00 36.1 C L 66 20 131/67 98 09/18/20 02:35 91 20 09/18/20 02:32 91 20 93 09/17/20 22:00 36.2 C L 68 20 138/62 98 09/17/20 21:43 68 09/17/20 20:51 82 20 09/17/20 20:50 82 20 93 Intake/Output Intake/O
[2020-09-18] MEDS: BUDESONIDE RESPULE NEB 0.5 MG/2 ML AMP 1 MG INHALATION (19:48)
--- NOTE | 2020-09-18 20:19 | PM.PNPUL ---
Progress Note: A&P Assessment and Plan (1) COPD (chronic obstructive pulmonary disease): Qualifiers: COPD type: unspecified COPD Qualified Code(s): J44.9 - Chronic obstructive pulmonary disease, unspecified Code(s): J44.9 - Chronic obstructive pulmonary disease, unspecified Status: Chronic Assessment and Plan: She appears more awake and alert today with normalized ABG. - continue albuterol to 2.5 mg Q6h from 5 mg - continue ipratopium 0.5 mg Q6h - continue pulmicort 1.0 mg Q12h - upon discharge d/c ipratropium and pulmicort and start Trelegy 100/62.5/25 mcg 1 puff daily - f/u with us in clinic in 2-4 weeks (2) Acute and chronic respiratory failure with hypercapnia: Code(s): J96.22 - Acute and chronic respiratory failure with hypercapnia Status: Chronic Assessment and Plan: Due to COPD exacerbation and probable underlying AMANDA - continue BiPAP 20/10 with back up rate of 18, titrating FiO2 for sats of > 92% - She will need her home Trilogy machine settings adjusted (3) COPD exacerbation: Code(s): J44.1 - Chronic obstructive pulmonary disease with (acute) exacerbation Status: Acute Assessment and Plan: d/c systemic steroids. No need for tappering Subjective Date/time seen: 09/18/20 20:19 Interval history: Feeling better today, working with PT/OT, more awake and alert. ABG has normalized with BIPAP 20/10. I could not pull up her AVAPS settings on Trilogy. Review of Systems Review of Systems: All systems reviewed & are unremarkable except as noted in HPI and below Exam Const: General: cooperative, healthy appearing and lethargic Nutritional Appearance: obese Orientation/consciousness: oriented to person, oriented to place, oriented to time, patient oriented x3 and lethargic Limitations: physical limitations HENMT: Head: normal to inspection Eyes: General: appearance normal, both eyes and all related structures Neck: Neck: trachea midline and supple Resp: Effort & Inspection: labored Auscultation: breath sounds absent and diminished lung sounds Cardio: Jugular venous distension: no JVD Rate: regular rate Rhythm: regular rhythm Heart sounds: S1 normal heart sound present and S2 normal heart sound present GI: Inspection: normal to inspection Auscultation: normal bowel sounds Skin: General skin exam: normal color and no rashes or lesions noted Neuro: General: oriented to person, oriented to place, oriented to time and patient oriented x3 Cognition (Neuro): normal cognition Speech: normal speech Psych: Appearance: grossly normal and well kempt Mental Status: mental status grossly normal Objective Data Vital Signs Vital Signs: Vital Signs - 24 hr 09/17/20 20:50 09/17/20 20:51 09/17/20 21:43 Temperature Pulse Rate 82 82 68 Respiratory Rate 20 20 Blood Pressure Pulse Oximetry 93 09/17/20 22:00 09/18/20 02:32 09/18/20 02:35 Temperature 36.2 C L Pulse Rate 68 91 91 Respiratory Rate 20 20 20 Blood Pressure 138/62 Pulse Oximetry 98 93 09/18/20 06:00 09/18/20 07:39 09/18/20 08:26 Temperature 36.1 C L 36.5 C Pulse Rate 66 96 96 Respiratory Rate 20 19 Blood Pressure 131/67 106/82 Pulse Oximetry 98 100 09/18/20 08:34 09/18/20 09:15 09/18/20 14:15 Temperature Pulse Rate 92 89 Respiratory Rate 20 20 Blood Pressure Pulse Oximetry 98 95 09/18/20 15:29 09/18/20 19:48 09/18/20 20:00 Temperature 36.4 C Pulse Rate 90 90 89 Respiratory Rate 20 20 20 Blood Pressure 136/70 Pulse Oximetry 100 94 Intake/Output Intake/Output: Intake & Output 09/15/20 09/16/20 09/17/20 09/18/20 23:59 23:59 23:59 23:59 Intake Total 760 1795 1890 2120 Output Total 1050 1925 1850 2600 Balance -290 -130 40 -480 Meds/Results Medications: Active Medications Generic Name Dose Route Start Last Admin Trade Name Freq PRN Reason Stop Dose Admin Acetaminophen 1,000 mg 08/31/20 01:04 09/17/20 10:
[2020-09-18] MEDS: SIMVASTATIN 20 MG TABLET PO (21:52)
[2020-09-18] MEDS: ACETAMINOPHEN 500 MG TABLET 1000 MG PO (22:30)
[2020-09-19] VITALS (14 sets, daily range): BP systolic 104–143; BP diastolic 43–64; PULSE 75–100; RESP 16–24; TEMP 36.2–36.6; O2SAT 93–100
[2020-09-19] MEDS: IPRATROPIUM BR 0.02% INH SOLN 0.5 MG/2.5 ML VIAL INHALATION ×4 (01:21→20:57)
[2020-09-19] MEDS: ALBUTEROL SULFATE NEB 2.5 MG/0.5 ML INH INHALATION ×4 (01:21→20:57)
[2020-09-19 05:37] LABS: Eosinophils Percent Auto 0.8 % (0-4.4); Hematocrit 27.4 % (37.0-47.0); Hemoglobin 8.2 g/dL (12.0-15.0); Immature Granulocyte Absolute 0.05 K/mm3 (0.00-0.031); Lymphocytes Absolute Auto 1.06 K/mm3 (0.9-3.2); Lymphocytes Percent Auto 21.2 % (18.3-44.2); Mean Corpuscular HGB Conc 29.9 g/dl (32-36); Mean Corpuscular Hemoglobin 28.4 pg (26-34); Mean Corpuscular Volume 94.8 fl (80-100); Mean Platelet Volume 12.6 fl (7.4-10.4); Monocytes Absolute Auto 0.6 K/mm3 (0.1-0.6); Monocytes Percent Auto 11.6 % (2.6-8.5); Neutrophils Absolute Auto 3.3 K/mm3 (1.3-6.7); Neutrophils Percent Auto 65.4 % (45.5-73.1); Platelet Count Result 120 k/mm3 (150-375); Red Blood Count 2.89 M/mm3 (4.2-5.4); Red Cell Distribution Width 15.9 % (11.5-14.5)
[2020-09-19 05:50] LABS: Anion Gap 0 mmol/L (8-16); Blood Urea Nitrogen 50 mg/dL (7-17); Calcium 7.1 mg/dL (8.4-10.2); Carbon Dioxide 36 mmol/L (22-30); Chloride 107 mmol/L (98-107); Estimated CRCL calculation 54 ml/min; Estimated Glomerular Filt Rate 49; Glucose 81 mg/dL (65-105); Potassium 4.4 mmol/L (3.4-5.0); Sodium 143 mmol/L (137-145)
[2020-09-19 06:30] LABS: Hypochromasia 1+ (NORMAL); Ovalocytes 1+ (NORMAL); Platelet Estimate Adequate (Adequate); Poikilocytosis 1+ (NORMAL); Target Cells 1+ (NORMAL)
[2020-09-19] MEDS: LEVOTHYROXINE SODIUM 125 MCG TABLET PO (06:31)
[2020-09-19] MEDS: HEPARIN SODIUM 5,000 UNITS/ML VIAL 5000 UNITS SUB-Q ×2 (06:33→13:58)
[2020-09-19] MEDS: PREGABALIN (*CRX) 50 MG CAPSULE 200 MG PO ×2 (09:00→21:09)
[2020-09-19] MEDS: SERTRALINE HCL 25 MG TABLET PO (09:00)
[2020-09-19] MEDS: SACUBITRIL/VALSARTAN 24-26 MG TABLET 1 TAB PO ×2 (09:00→21:10)
[2020-09-19] MEDS: PENTOXIFYLLINE 400 MG TABCR PO ×2 (09:00→17:43)
[2020-09-19] MEDS: PANTOPRAZOLE 40 MG TABLET PO (09:00)
[2020-09-19] MEDS: carvediloL 3.125 MG TABLET PO ×2 (09:00→21:10)
[2020-09-19] MEDS: CYANOCOBALAMIN 1,000 MCG TABLET 1000 MCG PO (09:01)
[2020-09-19] MEDS: ACIDOPHILUS/BULGARICUS CHEWABLE TABLET 1 TABLET PO ×2 (09:01→17:43)
[2020-09-19] MEDS: FERROUS SULFATE 324 MG TABLET PO ×2 (09:01→17:43)
[2020-09-19] MEDS: CHOLECALCIFEROL 1,000 UNITS TABLET 1000 UNITS PO (09:01)
--- NOTE | 2020-09-19 09:22 | PCRCNOTE ---
Notified Anna in Care Coordination of the updated bipap settings for use at the SNF. Anna to notify [facility] of the settings.
--- NOTE | 2020-09-19 09:29 | PM.PNPUL ---
Progress Note: A&P Assessment and Plan (1) COPD (chronic obstructive pulmonary disease): Qualifiers: COPD type: unspecified COPD Qualified Code(s): J44.9 - Chronic obstructive pulmonary disease, unspecified Code(s): J44.9 - Chronic obstructive pulmonary disease, unspecified Status: Chronic Assessment and Plan: She appears more awake and alert. - continue albuterol to 2.5 mg Q6h from 5 mg - continue ipratopium 0.5 mg Q6h - continue pulmicort 1.0 mg Q12h - upon discharge d/c ipratropium and pulmicort and start Trelegy 100/62.5/25 mcg 1 puff daily - f/u with us in clinic in 2-4 weeks (2) Acute and chronic respiratory failure with hypercapnia: Code(s): J96.22 - Acute and chronic respiratory failure with hypercapnia Status: Chronic Assessment and Plan: Due to COPD exacerbation and probable underlying AMANDA - continue BiPAP 20/10 with back up rate of 18, FIO2 of 35. This will be arranged at [facility] and then when she is discharged home she will wear Trilogy at home. - Trilogy machine settings (RATE 14, TV 400, E min 5, E max 5, PSV min 7, PSV max 25, max pressure 30, Delivery rate 5, 4 L bleed in) (3) COPD exacerbation: Code(s): J44.1 - Chronic obstructive pulmonary disease with (acute) exacerbation Status: Acute Assessment and Plan: off systemic steroids. No need for tapering Ready for discharge to facility from pulmonary perspective. Discussed with Dr. Mae. Call with any questions. Subjective Date/time seen: 09/19/20 09:29 Interval history: 09/18 Feeling better today, working with PT/OT, more awake and alert. ABG has normalized with BIPAP 20/10. 09/19 patient wore hospital BiPAP last night at 20/10, 35%, rate 18. Repeat SARS negative. Cr 1.10. Now on 2L NC. Review of Systems Review of Systems: All systems reviewed & are unremarkable except as noted in HPI and below Constitutional: Constitutional: Reports body ache(s), Reports difficulty sleeping, Reports headache(s), Reports lethargy and Reports weakness Eyes: Eyes: Reports no additional eye complaints ENT: Reports system reviewed and no additional complaints, except as documented and Reports headache(s) Cardiovascular: Cardiovascular: Denies chest pain and Reports dyspnea on exertion Respiratory: Respiratory: Denies chest congestion, Denies cough, Denies hemoptysis, Reports dyspnea on exertion and Denies wheezing Gastrointestinal: Gastrointestinal: Denies abdominal pain Genitourinary: Genitourinary: Reports no additional female genitourinary complaints Musculoskeletal: Musculoskeletal: Reports back pain, Reports myalgias and Reports arthralgias Neurologic: Reports headache(s) and Reports weakness Psychiatric: Psychiatric: Reports anxiety Allergic/Immunologic: Allergic/Immunologic: Denies wheezing Exam Const: General: no acute distress Eyes: General: appearance normal, both eyes and all related structures Neck: Neck: no JVD Resp: Effort & Inspection: normal respiratory effort and able to speak in complete sentences Auscultation: no crackles, no rales, no rhonchi and no wheezes Cardio: Heart sounds: no gallops and no murmurs GI: Inspection: non-distended GI Palp: Yes Soft to palpation and No Tenderness to palpation present (GI) : General: Yes no CVA tenderness Urinary Catheter: Urinary Catheter: patent and draining Back/Spine/Pelvis: Back: no CVA tenderness Neuro: Speech: normal speech Other: weak throughout Psych: Affect: normal affect Objective Data Vital Signs Vital Signs: Vital Signs - 24 hr 09/18/20 14:15 09/18/20 15:29 09/18/20 19:48 Temperature 36.4 C Pulse Rate 89 90 90 Respiratory Rate 20 20 20 Blood Pressure 136/70 Pulse Oximetry 100 94 09/18/20 20:00 09/18/20 21:30 09/18/20 21:52 Temperature 36.6 C Pulse Rate 89 99 90 Respiratory Rate 20 20 Blood Pressure 132/59 L Pulse Oximetry 99 09/19/20 00:44 09/19/20 01:22 09/19
[2020-09-19] MEDS: BUDESONIDE RESPULE NEB 0.5 MG/2 ML AMP 1 MG INHALATION ×2 (09:30→20:57)
--- NOTE | 2020-09-19 13:36 | PM.DS ---
DS: Admitting Diagnosis Admitting Diagnosis Admitting Diagnosis: hypoxia DS: Discharge Diagnosis Discharge Diagnosis (1) KONRAD (acute kidney injury): Code(s): N17.9 - Acute kidney failure, unspecified Status: Acute Assessment and Plan: Suspect due to volume depletion but consider related to abx (AIN?). Urine eos negative. Renal US no acute findings. Complement normal. Lasix, Entresto held initially and Entresto restarted 09/17. Cr peaked at 4.0 but better at 1.1 today. Will resume Lasix at lower dose., Discussed with Nephrology (2) Acute hypercapnic respiratory failure: Code(s): J96.02 - Acute respiratory failure with hypercapnia Status: Acute Assessment and Plan: Patient had elevated pCO2 of 66 on admission. She was treated with BiPAP. COVID-19 negative. Apnea link 09/03 incomplete; no AHI or RI documented. Chief Operating Officer adjusting BiPAP and O2 bleed in. Repeat apnea link 09/06 noted with RI and AHI 26 on room air. The apnea link 09/08 showing AHI and RI 9 on home unit with 4L bleed in. Currently on albuterol, atrovent and Pulmicort. Stopped IV steroids and changed to prednisone 40 daily; now off steroids. Patient use trilogy at assisted living and did well with BiPAP. She will use BiPAP at the residential but needs the trilogy when she returns to assisted living. (3) Pneumonia: Qualifiers: Laterality: unspecified laterality Lung location: unspecified part of lung Pneumonia type: due to unspecified organism Qualified Code(s): J18.9 - Pneumonia, unspecified organism Code(s): J18.9 - Pneumonia, unspecified organism Status: Acute Assessment and Plan: CT chest on admission showing a RML PNA. She was started on Levaquin, Vancomycin and Zosyn. Vanco/Zosyn were discontinued on 09/03 and started on IV Rocephin and oral doxycycline. Levaquin stopped after dose 5 on 09/04. Rocephin and Doxy stopped with last dose also on 09/04. No abx since 09/04/20. CXR 09/06 showing small amount of basilar atelectasis or pneumonia unchanged. No fevers and WBC remains normal. Resolved. (4) Encephalopathy acute: Code(s): G93.40 - Encephalopathy, unspecified Status: Acute Assessment and Plan: Most likely metabolic encephalopathy felt related to CO2 retention. Back to normal. (5) Congestive heart failure (CHF): Qualifiers: Heart failure chronicity: chronic Heart failure type: unspecified Qualified Code(s): I50.9 - Heart failure, unspecified Code(s): I50.9 - Heart failure, unspecified Status: Chronic Assessment and Plan: Echo 09/12/20 EF 60-65%, diastolic dysfunction and moderate pulm HTN (53). Euvolemic. Lasix and Entresto held given the elevated Cr but continued Coreg. Tolerated Bumex intermittently. Resumed Entresto at starting dose 09/17 and tolerating. Lasix at lower dose added at discharge. (6) Peripheral artery disease: Code(s): I73.9 - Peripheral vascular disease, unspecified Status: Chronic Assessment and Plan: Stable. We continued her current meds. (7) COPD (chronic obstructive pulmonary disease): Qualifiers: COPD type: unspecified COPD Qualified Code(s): J44.9 - Chronic obstructive pulmonary disease, unspecified Code(s): J44.9 - Chronic obstructive pulmonary disease, unspecified Status: Chronic Assessment and Plan: With acute exacerbation. Treated with Albuterol, Atrovent and Pulmicort. On Anoro inhaler treatment at home. Pulmonary following. Off steroids now. Change to Trelegy. (8) Peptic ulcer disease: Code(s): K27.9 - Peptic ulcer, site unspecified, unspecified as acute or chronic, without hemorrhage or perforation Status: Acute Assessment and Plan: Guaiac positive stools. EGD showing antral erosions. Colonoscopy showing multiple large polyps some too large to remove; biopsy taken showing tubolovillous ademom
[2020-09-19] MEDS: SIMVASTATIN 20 MG TABLET PO (21:11)
== END 2020-09-19 21:36 | DRG 193 ==
LOC: ANHED 14:06 → ANHIMU 08-31 00:13 → ANH3MED 09-03 20:34 → ANHIMU 09-11 21:20 → ANH2MED 09-19 13:49 → ANH3MED 09-21 10:39 → ANHCPC 09-21 10:39 → ANHIMU 09-21 10:39
PROVIDERS: Family Medicine; Internal Medicine; Internal Medicine Critical Care Medicine; Internal Medicine Gastroenterology; Internal Medicine Nephrology; Internal Medicine Pulmonary Disease; Admitting Provider Family Medicine; Emergency Provider Emergency Medicine; PCP Nurse Practitioner Family; Visit Provider Internal Medicine
PROC: 0DJ08ZZ Inspection of Upper Intestinal Tract, Via Natural or Artificial Opening Endoscopic (ICD-10-PCS; CPT 43235; principal; 2020-09-07 09:30)
DX: J18.9 Pneumonia, unspecified organism (principal); J96.22 Acute and chronic respiratory failure with hypercapnia; G93.41 Metabolic encephalopathy; J44.0 Chronic obstructive pulmonary disease with (acute) lower respiratory infection; Z68.41 Body mass index [BMI] 40.0-44.9, adult; J44.1 Chronic obstructive pulmonary disease with (acute) exacerbation; N17.9 Acute kidney failure, unspecified; I50.22 Chronic systolic (congestive) heart failure; J96.11 Chronic respiratory failure with hypoxia; Z20.822 Contact with and (suspected) exposure to COVID-19; I11.0 Hypertensive heart disease with heart failure; Z99.81 Dependence on supplemental oxygen; F32.9 Major depressive disorder, single episode, unspecified; Z85.118 Personal history of other malignant neoplasm of bronchus and lung; Z92.21 Personal history of antineoplastic chemotherapy; E78.5 Hyperlipidemia, unspecified; E03.9 Hypothyroidism, unspecified; E66.01 Morbid (severe) obesity due to excess calories; G62.9 Polyneuropathy, unspecified; I73.9 Peripheral vascular disease, unspecified; Z99.3 Dependence on wheelchair; Z87.891 Personal history of nicotine dependence; G89.4 Chronic pain syndrome; I71.9 Aortic aneurysm of unspecified site, without rupture; R33.0 Drug induced retention of urine; T40.605A Adverse effect of unspecified narcotics, initial encounter; Y92.9 Unspecified place or not applicable; N31.2 Flaccid neuropathic bladder, not elsewhere classified; K27.9 Peptic ulcer, site unspecified, unspecified as acute or chronic, without hemorrhage or perforation; I48.0 Paroxysmal atrial fibrillation; N13.9 Obstructive and reflux uropathy, unspecified; E86.9 Volume depletion, unspecified; R19.7 Diarrhea, unspecified; F40.240 Claustrophobia; D50.9 Iron deficiency anemia, unspecified; Z79.01 Long term (current) use of anticoagulants; E87.70 Fluid overload, unspecified; Z66 Do not resuscitate; G47.33 Obstructive sleep apnea (adult) (pediatric); K29.60 Other gastritis without bleeding; D12.0 Benign neoplasm of cecum; D12.2 Benign neoplasm of ascending colon; D12.3 Benign neoplasm of transverse colon; K57.30 Diverticulosis of large intestine without perforation or abscess without bleeding; K64.8 Other hemorrhoids
CPT/HCPCS: 36415; 36600; 70450; 71045; 71250; 76775; 80048; 80053; 80069; 80162; 80202; 81001; 82140; 82274; 82375; 82436; 82550; 82570; 82607; 82728; 82746; 82805; 82948; 83050; 83540; 83550; 83605; 83735; 83880; 84100; 84133; 84156; 84300; 84484; 85025; 85027; 85610; 85730; 85999; 86140; 86160; 87040; 87077; 87081; 87086; 87088; 87186; 87324; 88305; 93306; 94002; 94003; 94618; 94640; 94762; 97110; 97116; 97161; 97164; 97165; 97530; 97535; 99291; A9270; C9803; J0456; J0696; J1100; J1644; J1956; J2543; J2930; J3370; J3475; J7030; J7120; U0003; U0005

== ENCOUNTER 2021-04-27 15:15 | Emergency (ER) | payer MEDICARE, SELFPAY ==
[2021-04-27] VITALS (42 sets, daily range): BP systolic 79–110; BP diastolic 44–87; PULSE 77–102; RESP 13–21; TEMP 37.1–37.2; O2SAT 85–100
--- NOTE | ~2021-04-27 | CT_ITS ---
EXAMINATION: CT brain wo con DATE: 04/27/2021 16:24 INDICATION: Mental status changes TECHNIQUE: Computed tomography (CT) of the head was performed without intravenous contrast. The dose- length product was 605.33 mGy-cm. Automated exposure control and iterative reconstruction technique w ere employed. COMPARISON: CT dated 08/30/2020 FINDINGS: Brain parenchymal volume is normal for age. No acute intracranial hemorrhage, infarction, m ass or mass effect. No ventriculomegaly or midline shift. Basilar cisterns are patent. Paranasal sinu ses and mastoids are pneumatized. No depressed skull fractures. IMPRESSION: 1. Normal aging brain. Reviewed, dictated and finalized at location A. IMPRESSION: 1. Normal aging brain.
--- NOTE | ~2021-04-27 | XR_ITS ---
EXAMINATION: XR chest 1V portable EXAM DATE: 04/27/2021 16:34 INDICATION: COPD, CHF, HTN, HX Lung Cancer/Lobectomy, transient alteration of awareness. TECHNIQUE: Portable AP frontal chest x-ray was obtained. Comparison is made to prior examination from 09/11/2020. FINDINGS: Elevated right hemidiaphragm, unchanged. Small amount of basilar airspace disease does not appear significantly changed, could be chronic atelectasis or scarring. Infection not excludable. Wojciech cending thoracic aortic stent. There is aortic arteriosclerosis. Cervical fusion hardware. The cardio mediastinal silhouette is prominent but magnified on this AP technique. There is no pneumothorax susp ected. There are no pleural effusions. There are bony degenerative changes. IMPRESSION: Some chronic basilar opacities most consistent with scarring or atelectasis. Infection n ot excludable. Reviewed, dictated and finalized at location A. IMPRESSION: Some chronic basilar opacities most consistent with scarring or at electasis. Infection not excludable.
[2021-04-27 15:57] LABS: Basophils Absolute Auto 0.1 K/mm3 (0.0-0.1); Basophils Percent Auto 0.5 % (0.2-1.2); Eosinophils Absolute Auto 0.1 K/mm3 (0-0.3); Eosinophils Percent Auto 0.8 % (0-4.4); Hematocrit 37.7 % (37.0-47.0); Hemoglobin 11.1 g/dL (12.0-15.0); Immature Granulocyte Absolute 0.04 K/mm3 (0.00-0.031); Immature Granulocyte Percent A 0.4 % (0-0.5); Lymphocytes Percent Auto 14.4 % (18.3-44.2); Mean Corpuscular HGB Conc 29.4 g/dl (32-36); Mean Corpuscular Hemoglobin 30.9 pg (26-34); Mean Platelet Volume 11.5 fl (7.4-10.4); Monocytes Absolute Auto 0.8 K/mm3 (0.1-0.6); Monocytes Percent Auto 8.6 % (2.6-8.5); Neutrophils Absolute Auto 7.3 K/mm3 (1.3-6.7); Neutrophils Percent Auto 75.3 % (45.5-73.1); Platelet Count Result 218 k/mm3 (150-375); Red Blood Count 3.59 M/mm3 (4.2-5.4); Red Cell Distribution Width 14.9 % (11.5-14.5); White Blood Count 9.7 K/mm3 (4.5-10.0)
[2021-04-27 16:04] LABS: Alveolar/Arterial O2 Gradient 87.9 mmHg; Fractional Inspired Oxygen 32 %; HCO3 ABG 31.6 mEq/l (22.0-26.0); Oxygen Content ABG 14.8 %vol (16.0-22.0); Oxygen Saturation ABG 94.1 % (95.0-100.0); Oxyhemoglobin 93.3 % THb (90.0-100.0); PCO2 ABG 56.7 mmHg (35.0-45.0); PO2 ABG 73.9 mmHg (80.0-100.0); PO2 FiO2 Ratio Arterial Blood 2.31 %; Total Hemoglobin 11.2 g/dL (12.0-18.0); pH ABG 7.364 (7.350-7.450)
[2021-04-27 16:05] LABS: Device NASAL CANNULA; Site Drawn LEFT BRACHIAL
[2021-04-27 16:06] LABS: INR 1.2; Partial Thromboplastin Time 31.9 SECONDS (22.3-36.8); Prothrombin Time 15.4 Seconds (11.1-14.7)
[2021-04-27 16:12] LABS: Anion Gap 5 mmol/L (8-16); Blood Urea Nitrogen 31 mg/dL (7-17); Calcium 9.1 mg/dL (8.4-10.2); Carbon Dioxide 36 mmol/L (22-30); Chloride 97 mmol/L (98-107); Estimated CRCL calculation 34 ml/min; Estimated Glomerular Filt Rate 29; Glucose 101 mg/dL (65-110); Potassium 4.7 mmol/L (3.4-5.0); Sodium 138 mmol/L (137-145)
[2021-04-27 16:23] LABS: Anisocytosis 1+ (NORMAL); Hypochromasia 1+ (NORMAL); Platelet Estimate Adequate (Adequate)
--- NOTE | 2021-04-27 16:51 | ED.GENADULT ---
HPI - General Adult General Chief complaint: Altered Mental Status <Alfredito Farris MD - Last Filed: 04/27/21 16:54> Stated complaint: confusion/urinary catheter problems <Alfredito Farris MD - Last Filed: 04/27/21 16:54> Time Seen by Provider: 04/27/21 15:17 <Alfredito Farris MD - Last Filed: 04/27/21 16:54> History of Present Illness HPI narrative: Patient is a 75-year-old female who presents ER with confusion and presumed syncope. Patient reports she was found on the ground after using the restroom and she is not how she ended up on the ground. She is unsure if she hit her head but she does take a blood thinner. She reports that she actually pulled out her Khan and they placed a Khan catheter after she fell. There is no urine output at this time. Nursing reports patient's been confused for the last 5 days however at this time patient is alert and oriented x3. She reports that she wears 3 L of oxygen chronically. She also reports that she is supposed to wear her BiPAP and she has been trying to wear them often. <Alfredito Farris MD - Last Filed: 04/27/21 16:54> Related Data Home medications: Home Medications Medication Instructions Recorded Confirmed carvedilol [Coreg] 3.125 mg PO BID 10/22/19 08/30/20 pantoprazole [Protonix] 40 mg PO QAM 10/22/19 08/30/20 pentoxifylline 400 mg PO BID 10/22/19 08/30/20 pregabalin [Lyrica] 200 mg PO BID 10/22/19 08/30/20 sertraline [Zoloft] 25 mg PO QAM 10/22/19 08/30/20 simvastatin [Zocor] 20 mg PO HS 10/22/19 08/30/20 B12 Active 1,000 mcg PO DAILY 08/10/20 08/30/20 Digestive Advantage Probiotic 2 cap PO BID 08/10/20 08/30/20 cholecalciferol (vitamin D3) 25 mcg PO DAILY 08/10/20 08/30/20 [Vitamin D3] levothyroxine [Synthroid] 125 mcg PO DAILY 08/10/20 08/30/20 Xarelto 20 mg PO QPM 08/24/20 08/30/20 <Alfredito Farris MD - Last Filed: 04/27/21 16:54> Allergies/adverse reactions: Allergies Allergy/AdvReac Type Severity Reaction Status Date / Time No Known Allergies Allergy Verified 04/27/21 15:46 <Alfredito Farris MD - Last Filed: 04/27/21 16:54> Review of Systems Review of Systems: All systems reviewed & are unremarkable except as noted in HPI and below <Alfredito Farris MD - Last Filed: 04/27/21 16:54> Constitutional: Constitutional: Denies chills, Denies fever(s) and Denies weakness <Alfredito Farris MD - Last Filed: 04/27/21 16:54> ENT: Denies nasal congestion and Denies sore throat <Alfredito Farris MD - Last Filed: 04/27/21 16:54> Cardiovascular: Cardiovascular: Denies chest pain, Denies rapid heart rate and Denies radiating jaw, neck or arm pain <Alfredito Farris MD - Last Filed: 04/27/21 16:54> Respiratory: Respiratory: Denies cough, Denies dyspnea and Denies wheezing <Alfredito Farris MD - Last Filed: 04/27/21 16:54> Gastrointestinal: Gastrointestinal: Denies abdominal pain, Denies nausea and Denies vomiting <Alfredito Farris MD - Last Filed: 04/27/21 16:54> Neurologic: Reports syncope, Denies headache(s), Denies focal weakness and Denies numbness <Alfredito Farris MD - Last Filed: 04/27/21 16:54> [facility], [facility] Past Medical History Medical History: Medical History Arterial stent thrombosis Left leg Atrial fibrillation 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[facility]; Dr Shi, club former COPD (chronic obstructive pulmonary disease) Deficits with air trapping and increased airway resistance with lack of response to bronchodilator therapy. Now on Trilogy. Depression Descending aortic aneurysm Stable fusiform 4.7 cm within stent graft H/O: lung cancer 2006 chemotherapy and s/p lobectomy Hemorrhoids Hyperlipidemia Hypertension Hypothyroidism Morbid obesity Neuropathy Peptic ulcer disease Peripheral artery disease <Alfredito Farris MD - Last Filed: 04/27/21 16:54> Surgical History Surgical History:
--- NOTE | 2021-04-27 16:54 | ECG_ITS ---
Measurements Intervals [place] Rate: 99 P: [place]: 0 QRS: 51 QRSD: 89 T: 83 QT: 332 QTc: 427 Interpretive Statements ATRIAL FIBRILLATION LOW QRS VOLTAGE IN PRECORDIAL LEADS ABNORMAL ECG Electronically Signed On 04-27-2021 20:15:56 CDT by Jason Richards D.O.
[2021-04-27] MEDS: SODIUM CHLORIDE 0.9% IV 1,000 ML 999 ML IV CONT (17:27)
[2021-04-27 17:46] LABS: Add Urine Microscopic? YES; Appearance Urine Cloudy (Clear); Bacteria Urine Trace /hpf; Bilirubin Urine Negative (Negative); Blood Urine 3+ (Negative); Color Urine Yellow (Yellow); Glucose Urine UA Negative (Negative); Ketones Urine Negative (Negative); Leukocyte Esterase Ur 3+ LEU/UL (Negative); Mucus Urine Rare /lpf; Nitrate Urine Negative (Negative); Protein Urine 2+ mg/dL (Negative); RBC Urine 21-50 /hpf (0-2); Specific Grav Ur 1.008 (1.001-1.035); Urobilinogen Urine Negative mg/dL (<2.0); WBC Urine >75 /hpf
[2021-04-27] MEDS: CEPHALEXIN 500 MG CAPSULE PO (19:43)
--- NOTE | 2021-04-27 20:03 | PC.NURSE ---
Report called to LASH[place]DA [place] [facility] [place]
== END 2021-04-27 21:15 ==
PROVIDERS: Emergency Medicine; Emergency Provider Emergency Medicine; PCP Nurse Practitioner Family
DX: N39.0 Urinary tract infection, site not specified (principal); R53.1 Weakness; I48.91 Unspecified atrial fibrillation; I50.9 Heart failure, unspecified; J44.9 Chronic obstructive pulmonary disease, unspecified; Z90.2 Acquired absence of lung [part of]; E78.5 Hyperlipidemia, unspecified; I11.0 Hypertensive heart disease with heart failure; E03.9 Hypothyroidism, unspecified; G62.9 Polyneuropathy, unspecified; I73.9 Peripheral vascular disease, unspecified; E66.01 Morbid (severe) obesity due to excess calories; Z68.41 Body mass index [BMI] 40.0-44.9, adult; Z87.11 Personal history of peptic ulcer disease; Z92.21 Personal history of antineoplastic chemotherapy; Z85.118 Personal history of other malignant neoplasm of bronchus and lung; Z79.01 Long term (current) use of anticoagulants; Z87.891 Personal history of nicotine dependence
CPT/HCPCS: 36415; 36600; 70450; 71045; 80048; 81001; 82805; 85025; 85610; 85730; 87077; 87086; 87088; 87186; 93005; 96360; 99284; A9270; J7030

== ENCOUNTER 2021-05-26 11:37 | Emergency (ER) | payer MEDICARE, SELFPAY ==
[2021-05-26 11:39] VITALS: BP 116/63; PULSE 86; RESP 18; TEMP 37.1; O2SAT 98
[2021-05-26 11:57] VITALS: O2SAT 98
--- NOTE | 2021-05-26 12:00 | PC.NURSE ---
Pt takes pregabalin 200 mg BID per paperwork from [facility] for neuropathy
--- NOTE | 2021-05-26 13:33 | ED.GENADULT ---
HPI - General Adult General Chief complaint: Unspecified Stated complaint: pain all over Time Seen by Provider: 05/26/21 13:14 Source: patient, EMS and RN notes reviewed Mode of arrival: EMS Limitations: no limitations History of Present Illness HPI narrative: Patient 75 years old white female came from shelter complaining of increased pain of the peripheral neuropathy last few weeks. Patient complaining of tingling, needlelike feeling of the feet up to the knees bilaterally. Which been going for years. Patient declined any pain medication or labs at this time. And would like to go home because she is telling me probably she needs to follow-up with her family physician Related Data Home Medications Medication Instructions Recorded Confirmed carvedilol [Coreg] 3.125 mg PO BID 10/22/19 08/30/20 pantoprazole [Protonix] 40 mg PO QAM 10/22/19 08/30/20 pentoxifylline 400 mg PO BID 10/22/19 08/30/20 pregabalin [Lyrica] 200 mg PO BID 10/22/19 08/30/20 sertraline [Zoloft] 25 mg PO QAM 10/22/19 08/30/20 simvastatin [Zocor] 20 mg PO HS 10/22/19 08/30/20 B12 Active 1,000 mcg PO DAILY 08/10/20 08/30/20 Digestive Advantage Probiotic 2 cap PO BID 08/10/20 08/30/20 cholecalciferol (vitamin D3) 25 mcg PO DAILY 08/10/20 08/30/20 [Vitamin D3] levothyroxine [Synthroid] 125 mcg PO DAILY 08/10/20 08/30/20 Xarelto 20 mg PO QPM 08/24/20 08/30/20 Allergies Allergy/AdvReac Type Severity Reaction Status Date / Time No Known Allergies Allergy Verified 05/26/21 11:47 Review of Systems Review of Systems: CONSTITUTIONAL: Denies fever, chills, or sweats. EYES: Denies visual changes, redness, or discharge. ENT: Denies rhinorrhea, congestion, sore throat, or otalgia. CARDIOVASCULAR: Denies chest pain, palpitations, or edema. RESPIRATORY: Denies cough or dyspnea. GASTROINTESTINAL: Denies abdominal pain, nausea, vomiting, or diarrhea. GENITOURINARY: Denies dysuria or hematuria. SKIN: Denies rash or itching. MUSCULOSKELETAL: Denies back pain, joint pain, or myalgia. NEUROLOGIC: Denies headache, numbness, or weakness. PSYCHIATRIC: Denies anxiety or depression. 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 Now on Trilogy. Depression Descending aortic aneurysm Stable fusiform 4.7 cm within stent graft H/O: lung cancer 2006 chemotherapy and s/p lobectomy Hemorrhoids Hyperlipidemia Hypertension Hypothyroidism Morbid obesity Neuropathy Peptic ulcer disease Peripheral artery disease Surgical History Surgical History H/O tubal ligation History of appendectomy Open appendectomy for perforated appendicitis. History of colonoscopy History of endovascular stent graft for abdominal aortic aneurysm History of esophagogastroduodenoscopy (EGD) History of lobectomy of lung Right upper lobectomy at [place] due to lung cancer in 2005. History of total hysterectomy with bilateral salpingo-oophorectomy (BSO) Laparoscopic. Family History Family History Father Family history of malignant neoplasm Family history of arthritis Carcinoma of colon Sibling Family history of arthritis Mother Family history of malignant neoplasm breast cancer developed to bone; Other Family history of malignant neoplasm of bone Family history of thyroid disease Social History Social History Social History: The patient is . She has 1 son that is her only child. He is a durable power commercial attorney for healthcare. She is wheelchair-bound and has
== END 2021-05-26 15:02 ==
PROVIDERS: Emergency Provider Emergency Medicine; PCP Nurse Practitioner Family
DX: G62.9 Polyneuropathy, unspecified (principal); I48.91 Unspecified atrial fibrillation; I50.9 Heart failure, unspecified; I11.0 Hypertensive heart disease with heart failure; J44.9 Chronic obstructive pulmonary disease, unspecified; E78.5 Hyperlipidemia, unspecified; I73.9 Peripheral vascular disease, unspecified; E03.9 Hypothyroidism, unspecified; Z87.11 Personal history of peptic ulcer disease; Z85.118 Personal history of other malignant neoplasm of bronchus and lung; Z92.21 Personal history of antineoplastic chemotherapy; Z90.2 Acquired absence of lung [part of]; Z79.01 Long term (current) use of anticoagulants; Z66 Do not resuscitate; Z87.891 Personal history of nicotine dependence; Z99.3 Dependence on wheelchair
CPT/HCPCS: 99281

== ENCOUNTER 2021-06-08 10:41 | Inpatient (IN) | payer MEDICARE, SELFPAY ==
[2021-06-08] VITALS (52 sets, daily range): BP systolic 96–195; BP diastolic 61–130; PULSE 82–126; RESP 11–28; TEMP 35.5–37.1; O2SAT 76–100; BMI 41.1
--- NOTE | ~2021-06-08 | XR_ITS ---
XR shoulder LT min 2V 06/09/2021 15:33 INDICATION: Left shoulder pain after fall PROCEDURE: 4 views left shoulder COMPARISON: No prior studies for comparison. FINDINGS: Fracture, dislocation or subluxation is not identified. The soft tissues appear within norm al limits. No foreign bodies are identified. IMPRESSION: 1: NO ACUTE BONE OR JOINT ABNORMALITY IDENTIFIED. Reviewed, dictated and finalized at location B.
--- NOTE | ~2021-06-08 | XR_ITS ---
EXAMINATION: XR hip BI 2V w AP pelvis DATE: 06/09/2021 15:33 INDICATION: Generalized pelvis and bilateral hip pain post fall TECHNIQUE: Anteroposterior view of the pelvis and anteroposterior and frog-leg lateral views of the l eft hip and anteroposterior and frog-leg lateral views of the right hip and were obtained. COMPARISON: None. FINDINGS: Normal alignment in the pelvis. No fracture. Mild bilateral hip osteoarthritis. Postoperative changes in the lumbar spine with partially visualized bilateral vertical raulito and pedicle screw fixation for lumbar spinal fusion. There is lucency surrounding the pedicle screws at L5 which are likely loose. IMPRESSION: 1. Mild bilateral hip osteoarthritis. No acute osseous abnormality. 2. Partially visualized lumbar instrumented posterior spinal fusion with likely loosening of the pedi jose alejandro screws at L5. Reviewed, dictated and finalized at location A. IMPRESSION: 1. Mild bilateral hip osteoarthritis. No acute osseous abnormality. 2. Partially visualized lumbar instrumented posterior spinal fusion with likely loosening of the pedicle screws at L5.
--- NOTE | ~2021-06-08 | CT_ITS ---
EXAMINATION: CT lumbar spine [facility] EXAM DATE: 06/10/2021 09:03 INDICATION: Abnormal hip x-ray with suspicion of L5 screw loosening. TECHNIQUE: Spiral CT of the lumbar spine was performed without contrast. Axial, coronal and sagittal images lumbar spine were reviewed. The dose-length product (DLP) for this examination was 1467.90 m Gy-cm. The exposure was tailored according to patient size (auto mA exposure control), and iterativ e reconstruction (ASIR) was used as additional dose reduction technique. Comparison is made to prior examination from 04/13/2017. FINDINGS: There is lumbar posterior fusion hardware L2-L5. There are laminectomies at L3 and L4, Ther e is lucency surrounding the L5 pedicular screws bilaterally suggesting some amount of loosening. The re is 10 mm anterolisthesis L4 on L5 with severe disc disease. This has increased from about 6 mm ant erolisthesis in 2017. There has been interval partial osseous fusion of the L3-4 vertebral bodies and facet joints, with about 3 mm anterolisthesis at this level. The vertebral bodies are otherwise alig diane. Mild loss of the L3 and L4 vertebral body heights. The other pedicular screws appear well seated . There are no acute fractures identified. There is mild to moderate lumbar dextroscoliosis. There i s small partially exophytic left renal cyst. There is extensive sigmoid diverticulosis and abdominal aortic arteriosclerosis. Level by level evaluation: T12-L1: There is a mild diffuse disc bulge. Facet arthropathy: Mild. Neural foraminal stenosis: No stenosis. Central canal stenosis: No stenosis. L1-L2: There is a mild to moderate diffuse disc bulge. Facet arthropathy: Mild. Neural foraminal stenosis: Mild to moderate bilateral. Central canal stenosis: Mild. L2-L3: There is a mild diffuse disc bulge. Facet arthropathy: Partially fused. Neural foraminal stenosis: Mild right. Central canal stenosis: Posterior decompression. L3-L4: Mild to moderate, but partially fused Facet arthropathy: Partially fused. Neural foraminal stenosis: Moderate right, mild to moderate left. Central canal stenosis: Posterior decompression. L4-L5: There is a moderate diffuse disc bulge. Facet arthropathy: Moderate. Neural foraminal stenosis: Moderate to severe bilateral. Central canal stenosis: Posterior decompression. L5-S1: There is a mild diffuse disc bulge. Facet arthropathy: Mild to moderate. Neural foraminal stenosis: Mild to moderate bilateral. Central canal stenosis: Mild to moderate. IMPRESSION: 1. Surgical changes L2-L5 with loosening of lucency surrounding the L5 pedicular screws consistent w ith loosening. 2. Grade 2 anterolisthesis L4 on L5 with severe disc disease and moderate to severe bilateral neural foraminal stenosis, right more than left. 3. Lesser spondylosis above. Reviewed, dictated and finalized at location B. IMPRESSION: 1. Surgical changes L2-L5 with loosening of lucency surrounding the L5 pedicul ar screws consistent with loosening. 2. Grade 2 anterolisthesis L4 on L5 with severe disc disease and moderate to s evere bilateral neural foraminal stenosis, right more than left. 3. Lesser spondylosis above.
--- NOTE | ~2021-06-08 | CT_ITS ---
EXAMINATION: CT brain wo con DATE: 06/08/2021 11:36 INDICATION: Confusion. TECHNIQUE: Computed tomography (CT) of the head was performed without intravenous contrast. The mA wa s adjusted according to patient size. Iterative reconstruction technique was employed. The dose-lengt h product was 605.33 mGy-cm. COMPARISON: Head CT 04/27/2021 FINDINGS: There is mild motion artifact. There is no intracranial hemorrhage, acute infarction, or ab normal intracranial mass lesion. The ventricles are normal in size. The orbits are normal. There is m ild mucosal thickening in the paranasal sinuses. The mastoid air cells are normal. IMPRESSION: 1. Normal brain. Reviewed, dictated and finalized at location A. IMPRESSION: 1. Normal brain.
--- NOTE | ~2021-06-08 | XR_ITS ---
EXAMINATION: XR chest 1V portable DATE: 06/08/2021 12:35 INDICATION: Shortness of breath TECHNIQUE: frontal view of the chest was obtained. COMPARISON: Chest radiograph dated 04/27/2021 FINDINGS: Unchanged elevation the right hemidiaphragm. Increased opacity in the left lower lung zone which part ially obscures the medial left hemidiaphragm. No pleural effusion or pneumothorax. Heart size is norm al. Descending aortic endoluminal stent graft. Metallic density projecting over the lower cervical sp ine likely for an instrumented anterior spinal fusion. IMPRESSION: 1. Opacities in the left lower lung zone which could represent atelectasis and/or pneumonia. 2. Chronic elevation of the right hemidiaphragm. Reviewed, dictated and finalized at location A. IMPRESSION: 1. Opacities in the left lower lung zone which could represent atelectasis and/ or pneumonia. 2. Chronic elevation of the right hemidiaphragm.
--- NOTE | ~2021-06-08 | XR_ITS ---
EXAMINATION: XR chest 1V portable INDICATION: COPD, shortness of breath TECHNIQUE: Portable AP chest at 0519 hours COMPARISON: 06/08/2021 FINDINGS: There is chronic elevation of the left hemidiaphragm. Left basilar airspace opacities persi st but have improved. There is no pleural effusion or pneumothorax. The heart size is normal. An endo luminal stent is present in the descending thoracic aorta. Healed right-sided rib fractures are noted . IMPRESSION: 1. Persistent but improved left basilar airspace opacity, consistent with atelectasis versus pneumoni a. Reviewed, dictated and finalized at location A. IMPRESSION: 1. Persistent but improved left basilar airspace opacity, consistent with atele ctasis versus pneumonia.
--- NOTE | ~2021-06-08 | XR_ITS ---
XR shoulder RT min 2V 06/09/2021 15:33 INDICATION: Right shoulder pain after fall PROCEDURE: 4 views right shoulder COMPARISON: No prior studies for comparison. FINDINGS: Fracture, dislocation or subluxation is not identified. The soft tissues appear within norm al limits. No foreign bodies are identified. There is a healed right fifth rib fracture. IMPRESSION: 1: NO ACUTE BONE OR JOINT ABNORMALITY IDENTIFIED. Reviewed, dictated and finalized at location B.
[2021-06-08 11:07] LABS: Basophils Percent Auto 0.4 % (0.2-1.2); Eosinophils Absolute Auto 0.2 K/mm3 (0-0.3); Eosinophils Percent Auto 3.1 % (0-4.4); Hematocrit 44.6 % (37.0-47.0); Hemoglobin 12.8 g/dL (12.0-15.0); Immature Granulocyte Absolute 0.02 K/mm3 (0.00-0.031); Immature Granulocyte Percent A 0.4 % (0-0.5); Lymphocytes Percent Auto 20.4 % (18.3-44.2); Mean Corpuscular HGB Conc 28.7 g/dl (32-36); Mean Corpuscular Hemoglobin 31.2 pg (26-34); Mean Corpuscular Volume 108.8 fl (80-100); Mean Platelet Volume 11.2 fl (7.4-10.4); Monocytes Absolute Auto 0.4 K/mm3 (0.1-0.6); Monocytes Percent Auto 8.6 % (2.6-8.5); Neutrophils Absolute Auto 3.3 K/mm3 (1.3-6.7); Neutrophils Percent Auto 67.1 % (45.5-73.1); Platelet Count Result 181 k/mm3 (150-375); Red Cell Distribution Width 14.9 % (11.5-14.5); White Blood Count 4.9 K/mm3 (4.5-10.0)
[2021-06-08 11:20] LABS: Alanine Aminotransferase 16 U/L (4-35); Albumin Level 4.2 g/dL (3.5-5.1); Alkaline Phosphatase 73 U/L (38-126); Aspartate Amino Transferase 22 U/L (14-36); Bilirubin,Total 0.3 mg/dL (0.2-1.3); Blood Urea Nitrogen 37 mg/dL (7-17); Calcium 8.8 mg/dL (8.4-10.2); Carbon Dioxide > 40 mmol/L (22-30); Chloride 100 mmol/L (98-107); Estimated Glomerular Filt Rate 44; Glucose 119 mg/dL (65-110); Potassium 5.6 mmol/L (3.4-5.0); Sodium 144 mmol/L (137-145)
[2021-06-08 11:25] LABS: Alveolar/Arterial O2 Gradient 69.1 mmHg; Base Excess ABG 5.3 mEq/l (+/-2.0); Carboxyhemoglobin 0.5 % THb (0-2.0); Fractional Inspired Oxygen 34 %; HCO3 ABG 34.6 mEq/l (22.0-26.0); Methemoglobin ABG 0.2 %THb (0-1.5); Oxygen Content ABG 17.4 %vol (16.0-22.0); Oxygen Saturation ABG 94.4 % (95.0-100.0); Oxyhemoglobin 94.9 % THb (90.0-100.0); PO2 ABG 83.6 mmHg (80.0-100.0); PO2 FiO2 Ratio Arterial Blood 2.46 %; Reduced Hemoglobin 4.4 %THb (0-5.0)
[2021-06-08 11:27] LABS: pH ABG 7.271 (7.350-7.450)
[2021-06-08 11:28] LABS: Device NASAL CANNULA; Liters per Minute 3.5 LPM; Modified Allen's Test Pass; Site Drawn RIGHT RADIAL
[2021-06-08 11:28] LABS: Platelet Estimate Adequate (Adequate)
[2021-06-08 11:29] LABS: Hypochromasia 1+ (NORMAL)
[2021-06-08 14:03] LABS: Add Urine Microscopic? YES; Appearance Urine Cloudy (Clear); Bacteria Urine 1+ /hpf; Bilirubin Urine Negative (Negative); Blood Urine 1+ (Negative); Color Urine Yellow (Yellow); Glucose Urine UA Negative (Negative); Ketones Urine Negative (Negative); Leukocyte Esterase Ur 3+ LEU/UL (Negative); Mucus Urine Rare /lpf; Nitrate Urine Positive (Negative); Protein Urine 1+ mg/dL (Negative); Specific Grav Ur 1.014 (1.001-1.035); Urobilinogen Urine Negative mg/dL (<2.0); WBC Urine 31-50 /hpf
[2021-06-08] MEDS: LORazepam INJ (*CRX) 2 MG/ML VIAL 1 MG IV PUSH (14:49)
--- NOTE | 2021-06-08 14:50 | ED.AMS ---
HPI - Altered Mental Status General Chief Complaint: Altered Mental Status Stated Complaint: AMS Time Seen by Provider: 06/08/21 10:57 History of Present Illness HPI narrative: Patient is 76-year-old female who presents ER with increased confusion and falls over the last 2 days. Patient is typically oxygen put on 3 L of oxygen. Patient is somnolent while in the room but with minor noxious stimuli wakes up and is oriented x3. Denies any pain but does report recent falls and striking her head. Denies loss consciousness but she does use blood thinners. Patient also with history of hypercapnia. Patient has chronic indwelling Khan. Related Data Home Medications Medication Instructions Recorded Confirmed carvedilol [Coreg] 3.125 mg PO BID 10/22/19 08/30/20 pantoprazole [Protonix] 40 mg PO QAM 10/22/19 08/30/20 pentoxifylline 400 mg PO BID 10/22/19 08/30/20 pregabalin [Lyrica] 200 mg PO BID 10/22/19 08/30/20 sertraline [Zoloft] 25 mg PO QAM 10/22/19 08/30/20 simvastatin [Zocor] 20 mg PO HS 10/22/19 08/30/20 B12 Active 1,000 mcg PO DAILY 08/10/20 08/30/20 Digestive Advantage Probiotic 2 cap PO BID 08/10/20 08/30/20 cholecalciferol (vitamin D3) 25 mcg PO DAILY 08/10/20 08/30/20 [Vitamin D3] levothyroxine [Synthroid] 125 mcg PO DAILY 08/10/20 08/30/20 Xarelto 20 mg PO QPM 08/24/20 08/30/20 Allergies Allergy/AdvReac Type Severity Reaction Status Date / Time No Known Allergies Allergy Verified 05/26/21 11:47 Review of Systems Review of Systems: All systems reviewed & are unremarkable except as noted in HPI and below Constitutional: Constitutional: Denies chills, Reports fatigue, Denies fever(s) and Reports weakness ENT: Denies nasal congestion and Denies sore throat Cardiovascular: Cardiovascular: Denies chest pain, Denies rapid heart rate and Denies radiating jaw, neck or arm pain Respiratory: Respiratory: Denies cough, Reports dyspnea and Denies wheezing Gastrointestinal: Gastrointestinal: Denies abdominal pain, Denies nausea and Denies vomiting Genitourinary: Genitourinary: Denies nocturia and Denies dysuria [facility] Past Medical History Medical History (Updated 06/08/21 @ 21:02 by Alfredito Farris MD) Arterial stent thrombosis Left leg Atrial fibrillation 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[facility]; Dr Shi, mid level provider COPD (chronic obstructive pulmonary disease) Deficits with air trapping and increased airway resistance with lack of response to bronchodilator therapy. Now on Trilogy. Depression Descending aortic aneurysm Stable fusiform 4.7 cm within stent graft H/O: lung cancer 2005 chemotherapy and s/p lobectomy Hemorrhoids Hyperlipidemia Hypertension Hypothyroidism Morbid obesity Neuropathy Peptic ulcer disease Peripheral artery disease Surgical History Surgical History H/O tubal ligation History of appendectomy Open appendectomy for perforated appendicitis. History of colonoscopy History of endovascular stent graft for abdominal aortic aneurysm History of esophagogastroduodenoscopy (EGD) History of lobectomy of lung Right upper lobectomy at [place] due to lung cancer in 2005. History of total hysterectomy with bilateral salpingo-oophorectomy (BSO) Laparoscopic. Family History Family History Father Family history of malignant neoplasm Family history of arthritis Carcinoma of colon Sibling Family history of arthritis Mother Family history of malignant neoplasm breast cancer developed to bone; Other Family history of malignant neoplasm of bone Family history of thyroid disease Social History Social History Social History: The patient is . She has 1 son that is her only child. He is a durable power attorney recruiter for healthcare. She is wheelchair-bound and has home hea
[2021-06-08 15:29] LABS: Alveolar/Arterial O2 Gradient 90.7 mmHg; Base Excess ABG 2.4 mEq/l (+/-2.0); Carboxyhemoglobin 0.3 % THb (0-2.0); Fractional Inspired Oxygen 30 %; HCO3 ABG 26.9 mEq/l (22.0-26.0); Oxygen Content ABG 16.5 %vol (16.0-22.0); Oxygen Saturation ABG 95.4 % (95.0-100.0); Oxyhemoglobin 95.2 % THb (90.0-100.0); PCO2 ABG 41.2 mmHg (35.0-45.0); PO2 ABG 74.8 mmHg (80.0-100.0); PO2 FiO2 Ratio Arterial Blood 2.49 %; Reduced Hemoglobin 4.5 %THb (0-5.0); Total Hemoglobin 12.3 g/dL (12.0-18.0); pH ABG 7.433 (7.350-7.450)
[2021-06-08 15:31] LABS: Device BIPAP; Site Drawn LEFT BRACHIAL
[2021-06-08 15:32] LABS: Expiratory Pressure 8 cmH2O; Inspiratory Pressure 16 cmH2O
--- NOTE | 2021-06-08 17:26 | PM.IMHP ---
H&P: HPI History of Present Illness Date/Time: 06/08/21 17:26 this is a 76 year old female patient has a history of atrial fibrillation, congestive heart failure and COPD. The patient came to the emergency room due to altered mental status. Chest x-ray was read as opacities in left lower lung zone which could represent atelectasis or pneumonia. Chronic elevation the right hemo diaphragm. Head CT was read as normal brain. Initial ABGs pH 7.27 CO2 77 bicarb 34.6. The patient was placed on a BiPAP and now her pH is normal and CO2 was normal. The patient was given Ativan in the emergency room because she was having difficulty with the BiPAP. She also had soft restraints and was yelling ?God please help me ?. Patient was found have a UTI and was started on Rocephin. The patient is being admitted to inpatient services on the date of service of 06/08/2021 Chief Complaint: Shortness of breath Review of Systems Review of Systems: All systems reviewed & are unremarkable except as noted in HPI and below Constitutional: Constitutional: Reports as per HPI and Reports no additional constitutional complaints Eyes: Eyes: Reports as per HPI and Reports no additional eye complaints ENT: Reports system reviewed and no additional complaints, except as documented and Reports Normal hearing present Cardiovascular: Cardiovascular: Reports no additional cardiovascular complaints Respiratory: Respiratory: Reports no additional respiratory complaints and Reports no additional respiratory complaints Gastrointestinal: Gastrointestinal: Reports as per HPI and Reports no additional gastrointestinal complaints Musculoskeletal: Musculoskeletal: Reports no additional musculoskeletal complaints Integumentary/Breasts: Skin/Breast: Reports system reviewed and no additional complaints, except as docu and Reports as per HPI Neurologic: Reports system reviewed and no additional complaints, except as documented, Reports as per HPI and Reports Normal hearing present Psychiatric: Psychiatric: Reports no additional psychiatric complaints and Reports as per HPI Endocrine: Endocrine: Reports no additional endocrine complaints Hematologic/Lymphatic: Hematologic/Lymphatic: Reports no additional hematologic/lymphatic complaints Allergic/Immunologic: Allergic/Immunologic: Reports no additional allergic/immunologic complaints [facility] Past Medical History Medical History (Updated 06/08/21 @ 17:51 by Lisette De La Garza NP) Arterial stent thrombosis Left leg Atrial fibrillation 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[facility]; 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 Now on Trilogy. Depression Descending aortic aneurysm Stable fusiform 4.7 cm within stent graft H/O: lung cancer 2006 chemotherapy and s/p lobectomy Hemorrhoids Hyperlipidemia Hypertension Hypothyroidism Morbid obesity Neuropathy Peptic ulcer disease Peripheral artery disease Surgical History Surgical History H/O tubal ligation History of appendectomy Open appendectomy for perforated appendicitis. History of colonoscopy History of endovascular stent graft for abdominal aortic aneurysm History of esophagogastroduodenoscopy (EGD) History of lobectomy of lung Right upper lobectomy at [place] due to lung cancer in 2005. History of total hysterectomy with bilateral salpingo-oophorectomy (BSO) Laparoscopic. Family History Family History Father Family history of malignant neoplasm Family history of arthritis Carcinoma of colon Sibling Family history of arthritis Mother Family history of malignant neoplasm breast cancer developed to bone; Other Family history of malignant neoplasm of bone Family history of thyroi
[2021-06-08] MEDS: methylPREDNISolone SOD SUCC 40 MG VIAL 60 MG IV PUSH (18:19)
[2021-06-08] MEDS: MORPHINE SULFATE (*CRX) 4 MG/ML INJ IV PUSH (18:22)
--- OUTSIDE RECORDS SUMMARY | 2021-06-08 18:55 | XMS_ITS | Encounter Summary ---
:1945 Author Care Team Providers Name Role Phone Rahel Assisted OTHER [phone] [facility] Stern [facility] Snack Steward [phone] [place] Rodent Control Worker [phone] Reason for Visit Follow Up Assessment and Plan Assessment Note Medication Changes Nystatin cream and Triamcinolone cream Decrease Dicyclomine from TID to BID Signs and symptoms of when to seek furth er care reviewed with patient. Patient to follow up with primary care provider or return to clinic for any worsening signs and symptoms. Always present to ER or U rgent Care with any progression of/alarm ing symptoms, significant changes in symptoms or any concerning or urgent matters. Patient verbalized agreement and understanding of treatment plan. F/U 4 weeks, sooner if needed 1. Diarrhea Doing very well with Dicyclomi ne. Decreasing to BID as patient has noted she feels a bit constipated. Counseled o n watching which foods cause increases in diarrhea and to try and avoid them. ? dicyclomine 20 mg tablet 2. Candidal intertrigo ? nystatin 100,000 unit/gram topical cream ? triamcinolone acetonide 0. 1 % topical cream Discussion Note: None recorded.Patient educational handouts: No information available. Plan of Care Reminders Provider Appointments Follow up 06/26/2021 Cryst moses Abdalla 15 6:30AM LILIA Rodrigez, S Lab None ? ? recorded. Referral None ?
--- OUTSIDE RECORDS SUMMARY | 2021-06-08 18:55 | XMS_ITS ---
:1945 Author Care Team Providers Name Role Phone [facility] OTHER [phone] JOE WHITEHEAD Pharmaceutical Laboratory Technician [phone] ANGELI MATHEWS [facility] Talent Acquisition Project Manager [phone] Allergies None recorded. Medications Name Status Start Date Stop Date ? ? albuterol sulfate HFA 90 mcg/actuation Active ? Not available aerosol inhaler Anoro Ellipta 62.5 mcg-25 mcg/actuation Completed ? 10/12/2020 powder for inhalation aspirin 81 mg tablet,delayed release Completed ? 06/15/2020 TAKE ONE TABLET BY MOUTH DAILY azithromycin 250 mg tablet Completed ? 04/29 budesonide-formoterol HFA 160 mcg-4.5 Completed ? 04/29/2020 mcg/actuation aerosol inhaler carvedilol 3.125 mg tablet Active ? Not a vailable cefdinir 300 mg capsule Completed ? 04/29/20 cefuroxime axetil 500 mg tablet Completed ? 11/11/2020 cephalexin 500 mg capsule Completed ? 2020 cholecalciferol (vitamin D3) 25 mcg Active ? Not available (1,000 unit) tablet cyanocobalamin (vit B-12) 1,000 mcg Active ? Not available tablet Daily Probiotic (10 Strains) 4 billion cell capsule Active ? Not available Take 2 capsules twice a day by oral route. dicyclomine 20 mg tablet Active ? Not calderon ilable digoxin 125 mcg (0.125 mg) tablet Completed ? 10/12/2020 TAKE ONE TABLET BY MOUTH DAILY diltiazem 30 mg tablet Completed ? 0 TK 1 T PO Q 8 H docusate sodium 100 mg capsule Completed ? 0 10/12/2020 Take 1 capsule twice a day by oral route for 90 days.
--- OUTSIDE RECORDS SUMMARY | 2021-06-08 18:56 | XMS_ITS | Encounter Summary ---
:1945 Author Care Team Providers Name Role Phone [facility] OTHER [phone] Akosua Stern [facility] Manager Personal [phone] [place] [employer] Welder [phone] Reason for Visit Follow Up Assessment and Plan Assessment Note Medication Changes Dicyclomine 20 mg TID Labs ordered to check levels with frantz eli. Signs and symptoms of when to seek [...] F/U 4 weeks, sooner if needed 1. Urinary tract infectious dise ase Doing better with UTI, finishe d up ABX ? urinary tract infection in women: care instructions 2. Advance care planning ? advance care planning: car e instructions 3. Neuropathy Doing well on Lyrica. ? neuropathic pain: care ins tructions 4. Diarrhea ? dicyclomine 20 mg tablet ? diarrhea: care instruction s ? diarrhea education ? CMP, serum or plasma Discussion Note: None recorded. Plan of Care Reminders Provider Appointments Follow up Cryst moses Rodrigez
--- OUTSIDE RECORDS SUMMARY | 2021-06-08 18:56 | XMS_ITS | Encounter Summary ---
:1945 Author Care Team Providers Name Role Phone [place] [facility] OTHER [phone] Akosua Stern [facility] Sales And Marketing Administrator [phone] [place] Floatman [phone] Reason for Visit Follow Up Assessment and Plan Assessment Note Medication Changes Labs ordered to evaluate levels. Signs and symptoms of when to seek [...] agreement and understanding of treatment plan. F/U 12 weeks, sooner if needed 1. Anemia ? vitamin B12 + folate, seru m or blood ? iron + TIBC + ferritin, se rum 2. Hypothyroidism ? TSH + free T4, serum 3. Essential hypertension ? CMP, serum or plasma ? magnesium, blood ? CBC ? urinalysis, complete 4. Abnormal glucose level ? hemoglobin A1c, QN, blood 5. Hyperlipidemia ? lipid panel, blood Discussion Note: None recorded.Patient educational handouts: No information available. Plan of Care Reminders Provider Appointments Follow up [address] ren[address] Abdalla 06/26/2021 LILIA Rodrigez, S 6:30AM
--- NOTE | 2021-06-08 20:31 | PC.NURSE ---
pt taken off of bipap and put on 3L via nasal cannula per LEO Farris.
--- NOTE | 2021-06-08 22:50 | ADMGEN ---
This patient, Valorie Harris, was admitted to IMU Room 204-01. Patient/family oriented to hospital policies and general routines including ID bracelet, bed and alarms, visiting hours, pain management, procedures, bathroom and other care routines, personal items, smoking policy, room service/diet, and visiting hours. Information on how to activate the Rapid Response Team has been discussed. Patient/Family are encouraged to report perceived risks to care and to ask questions if they do not understand what they are told or what they should do.
[2021-06-09] VITALS (22 sets, daily range): BP systolic 108–138; BP diastolic 54–99; PULSE 60–111; RESP 14–20; TEMP 36.2–36.8; O2SAT 93–99
[2021-06-09] MEDS: methylPREDNISolone SOD SUCC 125 MG VIAL 60 MG IV PUSH ×4 (01:07→17:18)
[2021-06-09 04:59] LABS: Basophils Percent Auto 0.2 % (0.2-1.2); Hematocrit 39.2 % (37.0-47.0); Hemoglobin 12.1 g/dL (12.0-15.0); Immature Granulocyte Absolute 0.02 K/mm3 (0.00-0.031); Immature Granulocyte Percent A 0.4 % (0-0.5); Lymphocytes Absolute Auto 0.66 K/mm3 (0.9-3.2); Lymphocytes Percent Auto 12.3 % (18.3-44.2); Mean Corpuscular HGB Conc 30.9 g/dl (32-36); Mean Corpuscular Hemoglobin 31.8 pg (26-34); Mean Corpuscular Volume 103.2 fl (80-100); Mean Platelet Volume 11.7 fl (7.4-10.4); Monocytes Absolute Auto 0.1 K/mm3 (0.1-0.6); Monocytes Percent Auto 0.9 % (2.6-8.5); Neutrophils Absolute Auto 4.6 K/mm3 (1.3-6.7); Neutrophils Percent Auto 86.2 % (45.5-73.1); Platelet Count Result 167 k/mm3 (150-375); Red Cell Distribution Width 14.7 % (11.5-14.5); White Blood Count 5.4 K/mm3 (4.5-10.0)
[2021-06-09 05:22] LABS: Alanine Aminotransferase 15 U/L (4-35); Alkaline Phosphatase 71 U/L (38-126); Anion Gap 4 mmol/L (8-16); Aspartate Amino Transferase 21 U/L (14-36); Bilirubin,Total 0.3 mg/dL (0.2-1.3); Blood Urea Nitrogen 39 mg/dL (7-17); Carbon Dioxide 36 mmol/L (22-30); Chloride 102 mmol/L (98-107); Estimated CRCL calculation 47 ml/min; Estimated Glomerular Filt Rate 44; Glucose 145 mg/dL (65-110); Magnesium 1.3 mg/dL (1.6-2.3); Potassium 5.4 mmol/L (3.4-5.0); Sodium 142 mmol/L (137-145)
[2021-06-09] MEDS: HYDROcodone/acetaminophen (*CRX) 5-325 MG TABLET 1 TAB PO (06:15)
[2021-06-09 06:43] LABS: Thyroid Stimulating Hormone Reflex 0.558 uIU/mL (0.465-4.68)
--- NOTE | 2021-06-09 07:48 | P.CDI_ITS ---
CDI Query Clarification Request 1)-Encephalopathy, acute has been documented Please further specify type of encephalopathy: * Metabolic * Toxic * Hepatic * Hypertensive * Other * Unable to determine 2)- UTI has been documented - Chronic indwelling sevilla catheter has been documented Please further specify if UTI is: * Due to/associated with chronic indwelling sevilla catheter * Not due to/associated with chronic indwelling sevilla catheter * Unable to determine
--- NOTE | 2021-06-09 07:48 | WPDCDIQUERY2 ---
CDI Query Clarification Request 1)-Encephalopathy, acute has been documented Please further specify type of encephalopathy: Metabolic Toxic Hepatic Hypertensive Other Unable to determine 2)- UTI has been documented - Chronic indwelling sevilla catheter has been documented Please further specify if UTI is: Due to/associated with chronic indwelling sevilla catheter Not due to/associated with chronic indwelling sevilla catheter Unable to determine
[2021-06-09] MEDS: ALBUTEROL SULFATE NEB 2.5 MG/0.5 ML INH 5 MG INHALATION ×3 (08:08→18:18)
[2021-06-09] MEDS: IPRATROPIUM BR 0.02% INH SOLN 0.5 MG/2.5 ML VIAL INHALATION ×3 (08:08→18:18)
[2021-06-09 08:24] LABS: Alveolar/Arterial O2 Gradient 117.8 mmHg; Base Excess ABG 3.4 mEq/l (+/-2.0); Device NASAL CANNULA; Fractional Inspired Oxygen 32 %; HCO3 ABG 27.7 mEq/l (22.0-26.0); Modified Allen's Test Pass; Oxygen Content ABG 16.3 %vol (16.0-22.0); Oxygen Saturation ABG 92.8 % (95.0-100.0); Oxyhemoglobin 92.2 % THb (90.0-100.0); PO2 ABG 62.4 mmHg (80.0-100.0); PO2 FiO2 Ratio Arterial Blood 1.95 %; Site Drawn LEFT RADIAL; Total Hemoglobin 12.6 g/dL (12.0-18.0); pH ABG 7.447 (7.350-7.450)
[2021-06-09] MEDS: MORPHINE SULFATE (*CRX) 4 MG/ML INJ IV PUSH ×2 (09:46→14:21)
[2021-06-09] MEDS: TOLNAFTATE 1% POWDER 45 GM BTL 1 APPLIC TOPICAL ×2 (14:21→20:14)
--- NOTE | 2021-06-09 16:46 | PM.IMPN ---
Progress Note: A&P Assessment and Plan (1) Acute and chronic respiratory failure with hypercapnia: Code(s): J96.22 - Acute and chronic respiratory failure with hypercapnia Status: Chronic Assessment and Plan: The patient is currently on a BiPAP and her pH has normalized. Solu-Medrol and nebulizer treatments. Continue with home BiPAP CPAP setting auto titrate. Continue with home inhalers. She was off Bipap all day and started to become more confused. Recheck stat ABG and restart bipap as needed. (2) Hypothyroidism: Qualifiers: Hypothyroidism type: acquired Qualified Code(s): E03.9 - Hypothyroidism, unspecified Code(s): E03.9 - Hypothyroidism, unspecified Status: Chronic Assessment and Plan: Resume home medication check thyroid level. (3) Depression: Qualifiers: Depression Type: unspecified Qualified Code(s): F32.9 - Major depressive disorder, single episode, unspecified Code(s): F32.9 - Major depressive disorder, single episode, unspecified Status: Chronic Assessment and Plan: Continue with Zoloft. (4) COPD (chronic obstructive pulmonary disease): Qualifiers: COPD type: unspecified COPD Qualified Code(s): J44.9 - Chronic obstructive pulmonary disease, unspecified Code(s): J44.9 - Chronic obstructive pulmonary disease, unspecified Status: Chronic Assessment and Plan: Continue with home medications. (5) Hyperlipidemia: Qualifiers: Hyperlipidemia type: unspecified Qualified Code(s): E78.5 - Hyperlipidemia, unspecified Code(s): E78.5 - Hyperlipidemia, unspecified Status: Chronic Assessment and Plan: Continue with home medication. Continue with simvastatin (6) Hypertension: Code(s): I10 - Essential (primary) hypertension Status: Chronic Assessment and Plan: Continue with home medications (7) Congestive heart failure (CHF): Qualifiers: Heart failure chronicity: chronic Heart failure type: unspecified Qualified Code(s): I50.9 - Heart failure, unspecified Code(s): I50.9 - Heart failure, unspecified Status: Chronic Assessment and Plan: Hold entresto until postassium normalizes. continue lasix (8) COPD exacerbation: Code(s): J44.1 - Chronic obstructive pulmonary disease with (acute) exacerbation Status: Acute Assessment and Plan: Continue with home inhalers. Solu-Medrol. (9) Atrial fibrillation: Code(s): I48.91 - Unspecified atrial fibrillation Status: Chronic Assessment and Plan: Continue with Xarelto and Coreg (10) Acute metabolic encephalopathy: Code(s): G93.41 - Metabolic encephalopathy Status: Acute Assessment and Plan: Seems to wax and wane. CT head no acute findings, no focal neurological deficits. She does have a UTI which could be the source of confusion vs possible CO2 retention. Will continue to monitor mental status. (11) UTI (urinary tract infection) due to urinary indwelling Khan catheter: Code(s): T83.511A - Infection and inflammatory reaction due to indwelling urethral catheter, initial encounter; N39.0 - Urinary tract infection, site not specified Status: Acute Assessment and Plan: Continue with Rocephin monitor blood and urine cultures Subjective Date/time seen: 06/09/21 10:30 Pt is a 76 yo female w/ history of atrial fibrillation, congestive heart failure and COPD who was admitted to the hospital for UTI, COPD exacerbation, and AMS. Today she is alert to person only. Further hx limited secondary to clinical condition. 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
[2021-06-09 16:54] LABS: Alveolar/Arterial O2 Gradient 101.9 mmHg; Base Excess ABG 4.9 mEq/l (+/-2.0); Fractional Inspired Oxygen 32 %; HCO3 ABG 28.2 mEq/l (22.0-26.0); Oxyhemoglobin 95.5 % THb (90.0-100.0); PCO2 ABG 36.9 mmHg (35.0-45.0); PO2 ABG 83.1 mmHg (80.0-100.0); Total Hemoglobin 12.6 g/dL (12.0-18.0)
[2021-06-09 16:58] LABS: Device NASAL CANNULA; Modified Allen's Test Pass; Site Drawn RIGHT RADIAL; pH ABG 7.501 (7.350-7.450)
[2021-06-09] MEDS: FERROUS SULFATE 324 MG TABLET PO (17:48)
[2021-06-09] MEDS: PENTOXIFYLLINE 400 MG TABCR PO (17:49)
[2021-06-09] MEDS: RIVAROXABAN 20 MG TABLET PO (17:49)
[2021-06-09] MEDS: PREGABALIN (*CRX) 50 MG CAPSULE 200 MG PO (17:50)
[2021-06-09] MEDS: carvediloL 3.125 MG TABLET PO (20:13)
[2021-06-09] MEDS: SIMVASTATIN 20 MG TABLET PO (20:13)
[2021-06-10] VITALS (22 sets, daily range): BP systolic 100–131; BP diastolic 61–85; PULSE 75–100; RESP 17–25; TEMP 36.1–37.1; O2SAT 93–98
[2021-06-10] MEDS: methylPREDNISolone SOD SUCC 125 MG VIAL 60 MG IV PUSH ×5 (01:05→23:23)
[2021-06-10] MEDS: ALBUTEROL SULFATE NEB 2.5 MG/0.5 ML INH 5 MG INHALATION ×3 (02:01→20:50)
[2021-06-10] MEDS: IPRATROPIUM BR 0.02% INH SOLN 0.5 MG/2.5 ML VIAL INHALATION ×3 (02:01→20:51)
[2021-06-10] MEDS: LEVOTHYROXINE SODIUM 125 MCG TABLET PO (06:21)
[2021-06-10] MEDS: oxyCODONE/ACETAMINOPHEN (*CRX) 5-325 MG TABLET 1 TABLET PO (06:21)
[2021-06-10] MEDS: TOLNAFTATE 1% POWDER 45 GM BTL 1 APPLIC TOPICAL ×2 (09:31→21:18)
[2021-06-10] MEDS: carvediloL 3.125 MG TABLET PO ×2 (09:31→21:18)
[2021-06-10] MEDS: FERROUS SULFATE 324 MG TABLET PO ×2 (09:31→16:23)
[2021-06-10] MEDS: CYANOCOBALAMIN 1,000 MCG TABLET 1000 MCG PO (09:31)
[2021-06-10] MEDS: PANTOPRAZOLE 40 MG TABLET PO (09:31)
[2021-06-10] MEDS: CHOLECALCIFEROL 1,000 UNITS TABLET 1000 UNITS PO (09:31)
[2021-06-10] MEDS: PENTOXIFYLLINE 400 MG TABCR PO ×2 (09:31→16:23)
[2021-06-10] MEDS: FUROSEMIDE 40 MG TABLET PO (09:31)
[2021-06-10] MEDS: SACCHAROMYCES BOULARDII 250 MG CAPSULE PO ×2 (09:32→16:23)
[2021-06-10] MEDS: SERTRALINE HCL 25 MG TABLET PO (09:32)
[2021-06-10] MEDS: PREGABALIN (*CRX) 50 MG CAPSULE 200 MG PO ×2 (09:34→16:26)
--- NOTE | 2021-06-10 09:41 | PM.IMPN ---
Progress Note: A&P Assessment and Plan (1) Acute and chronic respiratory failure with hypercapnia: Code(s): J96.22 - Acute and chronic respiratory failure with hypercapnia <Zoey Cabezas PA-C - Last Filed: 06/10/21 14:37> Status: Chronic <ENRIQUE Valentine Last Filed: 06/10/21 14:37> Assessment and Plan: 06/08/21 The patient is currently on a BiPAP and her pH has normalized. Solu-Medrol and nebulizer treatments. Continue with home BiPAP CPAP setting auto titrate. Continue with home inhalers. 06/09/21 She was off Bipap all day and started to become more confused. Recheck stat ABG and restart bipap as needed. 06/10/21 Repeat ABG last night w/ pH of 7.501, CO2 36.9, PO2 83.1, HCO3 28.2, will continue bipap as needed. She apparently was on it overnight for 3 hours but continuously tried to remove it. Repeated again today, pH normalized at 7.439, CO2 44.6, PO2 73.1, HCO3 29.5. She is on 3L NC at this time resting comfortably. <Zoey Cabezas PA-C - Last Filed: 06/10/21 14:37> (2) Hypothyroidism: Qualifiers: Hypothyroidism type: acquired Qualified Code(s): E03.9 - Hypothyroidism, unspecified <Zoey Cabezas PA-C - Last Filed: 06/10/21 14:37> Code(s): E03.9 - Hypothyroidism, unspecified <Zoey Cabezas PA-C - Last Filed: 06/10/21 14:37> Status: Chronic <ENRIQUE Valentine Last Filed: 06/10/21 14:37> Assessment and Plan: Resume home medication check thyroid level. TSH WNL. <Zoey Cabezas PA-C - Last Filed: 06/10/21 14:37> (3) Depression: Qualifiers: Depression Type: unspecified Qualified Code(s): F32.9 - Major depressive disorder, single episode, unspecified <Zoey Cabezas PA-C - Last Filed: 06/10/21 14:37> Code(s): F32.9 - Major depressive disorder, single episode, unspecified <Zoey LAnjum Cabezas PA-C - Last Filed: 06/10/21 14:37> Status: Chronic <Zoey Zhu ENRIQUE Cabezas - Last Filed: 06/10/21 14:37> Assessment and Plan: Continue with Zoloft. <Zoey Cabezas PA-C - Last Filed: 06/10/21 14:37> (4) COPD (chronic obstructive pulmonary disease): Qualifiers: COPD type: unspecified COPD Qualified Code(s): J44.9 - Chronic obstructive pulmonary disease, unspecified <Zoey CarterAnjum Cabezas PA-C - Last Filed: 06/10/21 14:37> Code(s): J44.9 - Chronic obstructive pulmonary disease, unspecified <Zoey CarterAnjum Cabezas PA-C - Last Filed: 06/10/21 14:37> Status: Chronic <Zoey CarterAnjum Cabezas PA-C - Last Filed: 06/10/21 14:37> Assessment and Plan: Continue with home medications. <Zoey Cabezas PA-C - Last Filed: 06/10/21 14:37> (5) Hyperlipidemia: Qualifiers: Hyperlipidemia type: unspecified Qualified Code(s): E78.5 - Hyperlipidemia, unspecified <Zoey CarterAnjum Cabezas PA-C - Last Filed: 06/10/21 14:37> Code(s): E78.5 - Hyperlipidemia, unspecified <Zoey Zhu ENRIQUE Cabezas - Last Filed: 06/10/21 14:37> Status: Chronic <Zoey CarterAnjum Cabezas PA-C - Last Filed: 06/10/21 14:37> Assessment and Plan: Continue with home medication. Continue with simvastatin <Zoey Cabezas PA-C - Last Filed: 06/10/21 14:37> (6) Hypertension: Code(s): I10 - Essential (primary) hypertension <Zoey Cabezas PA-C - Last Filed: 06/10/21 14:37> Status: Chronic <Zoey Cabezas PA-C - Last Filed: 06/10/21 14:37> Assessment and Plan: Stable. Continue with home medications <Zoey Cabezas PA-C - Last Filed: 06/10/21 14:37> (7) Congestive heart failure (CHF): Qualifiers: Heart failure chronicity: chronic Heart failure type: unspecified Qualified Code(s): I50.9 - Heart failure, unspecified <Zoey Cabezas PA-C - Last Filed: 06/10/21 14:37> Code(s):
[2021-06-10 10:07] LABS: Basophils Percent Auto 0.1 % (0.2-1.2); Hematocrit 38.5 % (37.0-47.0); Immature Granulocyte Absolute 0.02 K/mm3 (0.00-0.031); Immature Granulocyte Percent A 0.3 % (0-0.5); Lymphocytes Absolute Auto 0.43 K/mm3 (0.9-3.2); Lymphocytes Percent Auto 5.7 % (18.3-44.2); Mean Corpuscular HGB Conc 31.2 g/dl (32-36); Mean Corpuscular Hemoglobin 31.3 pg (26-34); Mean Corpuscular Volume 100.3 fl (80-100); Mean Platelet Volume 11.4 fl (7.4-10.4); Monocytes Absolute Auto 0.3 K/mm3 (0.1-0.6); Neutrophils Absolute Auto 6.7 K/mm3 (1.3-6.7); Neutrophils Percent Auto 89.9 % (45.5-73.1); Platelet Count Result 177 k/mm3 (150-375); Red Blood Count 3.84 M/mm3 (4.2-5.4); Red Cell Distribution Width 15.1 % (11.5-14.5); White Blood Count 7.5 K/mm3 (4.5-10.0)
[2021-06-10 10:12] LABS: Anion Gap 7 mmol/L (8-16); Blood Urea Nitrogen 44 mg/dL (7-17); Calcium 8.8 mg/dL (8.4-10.2); Carbon Dioxide 32 mmol/L (22-30); Chloride 100 mmol/L (98-107); Estimated CRCL calculation 41 ml/min; Estimated Glomerular Filt Rate 37; Glucose 155 mg/dL (65-110); Potassium 4.8 mmol/L (3.4-5.0); Sodium 139 mmol/L (137-145)
[2021-06-10] MEDS: FLUTICASONE/UMECLIDIN/VILANTER 100-62.5-25 MCG ELLIPTA 1 PUFF INHALATION (10:48)
[2021-06-10 10:56] LABS: Alveolar/Arterial O2 Gradient 175.3 mmHg; Base Excess ABG 4.7 mEq/l (+/-2.0); Fractional Inspired Oxygen 42 %; HCO3 ABG 29.5 mEq/l (22.0-26.0); Oxygen Content ABG 16.9 %vol (16.0-22.0); Oxygen Saturation ABG 95.1 % (95.0-100.0); Oxyhemoglobin 93.1 % THb (90.0-100.0); PCO2 ABG 44.6 mmHg (35.0-45.0); PO2 ABG 73.1 mmHg (80.0-100.0); PO2 FiO2 Ratio Arterial Blood 1.74 %; Total Hemoglobin 12.9 g/dL (12.0-18.0); pH ABG 7.439 (7.350-7.450)
[2021-06-10 10:58] LABS: Device NASAL CANNULA; Modified Allen's Test Pass; Site Drawn RIGHT RADIAL
[2021-06-10] MEDS: MAGNESIUM OXIDE 400 MG TABLET PO (12:54)
[2021-06-10] MEDS: RIVAROXABAN 20 MG TABLET PO (16:24)
[2021-06-10] MEDS: SIMVASTATIN 20 MG TABLET PO (21:18)
[2021-06-11] VITALS (25 sets, daily range): BP systolic 105–133; BP diastolic 58–80; PULSE 53–100; RESP 18–27; TEMP 36–36.7; O2SAT 90–96
[2021-06-11] MEDS: ALBUTEROL SULFATE NEB 2.5 MG/0.5 ML INH 5 MG INHALATION ×4 (02:22→18:24)
[2021-06-11] MEDS: IPRATROPIUM BR 0.02% INH SOLN 0.5 MG/2.5 ML VIAL INHALATION ×4 (02:22→18:24)
[2021-06-11 05:48] LABS: Alveolar/Arterial O2 Gradient 83.2 mmHg; Base Excess ABG 5.7 mEq/l (+/-2.0); Fractional Inspired Oxygen 30 %; HCO3 ABG 31.5 mEq/l (22.0-26.0); Oxygen Content ABG 16.6 %vol (16.0-22.0); Oxygen Saturation ABG 94.1 % (95.0-100.0); Oxyhemoglobin 92.1 % THb (90.0-100.0); PCO2 ABG 51.2 mmHg (35.0-45.0); PO2 ABG 70.5 mmHg (80.0-100.0); PO2 FiO2 Ratio Arterial Blood 2.35 %; Total Hemoglobin 12.8 g/dL (12.0-18.0); pH ABG 7.407 (7.350-7.450)
[2021-06-11 05:49] LABS: Device NON-INVASIVE VENT; Modified Allen's Test Pass; Site Drawn RIGHT RADIAL
[2021-06-11 05:50] LABS: Non-Invasive Expiratory Pressure 8 CMH2O; Non-Invasive Inspiratory Pressure 16 CMH2O; Non-Invasive Vent Rate 24 /MIN
[2021-06-11 05:51] LABS: Hemoglobin 11.7 g/dL (12.0-15.0); Immature Granulocyte Absolute 0.03 K/mm3 (0.00-0.031); Immature Granulocyte Percent A 0.5 % (0-0.5); Lymphocytes Absolute Auto 0.45 K/mm3 (0.9-3.2); Lymphocytes Percent Auto 7.6 % (18.3-44.2); Mean Corpuscular HGB Conc 30.8 g/dl (32-36); Mean Corpuscular Volume 100.8 fl (80-100); Mean Platelet Volume 11.7 fl (7.4-10.4); Monocytes Absolute Auto 0.2 K/mm3 (0.1-0.6); Neutrophils Absolute Auto 5.2 K/mm3 (1.3-6.7); Neutrophils Percent Auto 87.9 % (45.5-73.1); Platelet Count Result 170 k/mm3 (150-375); Red Blood Count 3.77 M/mm3 (4.2-5.4); White Blood Count 5.9 K/mm3 (4.5-10.0)
[2021-06-11 06:07] LABS: Anion Gap 4 mmol/L (8-16); Blood Urea Nitrogen 53 mg/dL (7-17); Calcium 8.4 mg/dL (8.4-10.2); Carbon Dioxide 35 mmol/L (22-30); Chloride 100 mmol/L (98-107); Estimated CRCL calculation 44 ml/min; Estimated Glomerular Filt Rate 40; Glucose 153 mg/dL (65-110); Magnesium 1.7 mg/dL (1.6-2.3); Potassium 4.6 mmol/L (3.4-5.0); Sodium 139 mmol/L (137-145)
[2021-06-11] MEDS: LEVOTHYROXINE SODIUM 125 MCG TABLET PO (06:20)
[2021-06-11] MEDS: methylPREDNISolone SOD SUCC 125 MG VIAL 60 MG IV PUSH ×2 (06:20→14:06)
[2021-06-11] MEDS: FLUTICASONE/UMECLIDIN/VILANTER 100-62.5-25 MCG ELLIPTA 1 PUFF INHALATION (08:23)
[2021-06-11] MEDS: PREGABALIN (*CRX) 50 MG CAPSULE 200 MG PO ×2 (09:41→17:47)
[2021-06-11] MEDS: SACCHAROMYCES BOULARDII 250 MG CAPSULE PO ×2 (09:41→17:48)
[2021-06-11] MEDS: CYANOCOBALAMIN 1,000 MCG TABLET 1000 MCG PO (09:42)
[2021-06-11] MEDS: carvediloL 3.125 MG TABLET PO ×2 (09:42→20:20)
[2021-06-11] MEDS: PENTOXIFYLLINE 400 MG TABCR PO ×2 (09:42→17:47)
[2021-06-11] MEDS: FUROSEMIDE 40 MG TABLET PO (09:42)
[2021-06-11] MEDS: FERROUS SULFATE 324 MG TABLET PO ×2 (09:42→17:48)
[2021-06-11] MEDS: PANTOPRAZOLE 40 MG TABLET PO (09:42)
[2021-06-11] MEDS: SERTRALINE HCL 25 MG TABLET PO (09:42)
[2021-06-11] MEDS: CHOLECALCIFEROL 1,000 UNITS TABLET 1000 UNITS PO (09:42)
[2021-06-11] MEDS: MAGNESIUM OXIDE 400 MG TABLET PO (09:42)
[2021-06-11] MEDS: TOLNAFTATE 1% POWDER 45 GM BTL 1 APPLIC TOPICAL ×2 (09:43→20:20)
--- NOTE | 2021-06-11 14:46 | PM.IMPN ---
Progress Note: A&P Assessment and Plan (1) Acute and chronic respiratory failure with hypercapnia: Code(s): J96.22 - Acute and chronic respiratory failure with hypercapnia <Zoey Cabezas PA-C - Last Filed: 06/11/21 15:01> Status: Chronic <ENRIQUE Valentine Last Filed: 06/11/21 15:01> Assessment and Plan: 06/08/21 The patient is currently on a BiPAP and her pH has normalized. Solu-Medrol and nebulizer treatments. Continue with home BiPAP CPAP setting auto titrate. Continue with home inhalers. 06/09/21 She was off Bipap all day and started to become more confused. Recheck stat ABG and restart bipap as needed. 06/10/21 Repeat ABG last night w/ pH of 7.501, CO2 36.9, PO2 83.1, HCO3 28.2, will continue bipap as needed. She apparently was on it overnight for 3 hours but continuously tried to remove it. Repeated again today, pH normalized at 7.439, CO2 44.6, PO2 73.1, HCO3 29.5. She is on 3L NC at this time resting comfortably. 06/11/21 Improved. ABG chronic findings, stable. Switch from solumedrol to prednisone. Continue nebs. Continue bipap overnight. Appropriate to downgrade to med/surg w/ telemetry <Zoey Cabezas PA-C - Last Filed: 06/11/21 15:01> (2) Hypothyroidism: Qualifiers: Hypothyroidism type: acquired Qualified Code(s): E03.9 - Hypothyroidism, unspecified <ENRIQUE Valentine Last Filed: 06/11/21 15:01> Code(s): E03.9 - Hypothyroidism, unspecified <ENRIQUE Valentine Last Filed: 06/11/21 15:01> Status: Chronic <ENRIQUE Valentine Last Filed: 06/11/21 15:01> Assessment and Plan: Resume home medication check thyroid level. TSH WNL. <ENRIQUE Valentine Last Filed: 06/11/21 15:01> (3) Depression: Qualifiers: Depression Type: unspecified Qualified Code(s): F32.9 - Major depressive disorder, single episode, unspecified <Zoey Cabezas PA-C - Last Filed: 06/11/21 15:01> Code(s): F32.9 - Major depressive disorder, single episode, unspecified <Zoey Cabezas PA-C - Last Filed: 06/11/21 15:01> Status: Chronic <Zoey Cabezas PA-C - Last Filed: 06/11/21 15:01> Assessment and Plan: Continue with Zoloft. <Zoey Cabezas PA-C - Last Filed: 06/11/21 15:01> (4) Hyperlipidemia: Qualifiers: Hyperlipidemia type: unspecified Qualified Code(s): E78.5 - Hyperlipidemia, unspecified <Zoey Cabezas PA-C - Last Filed: 06/11/21 15:01> Code(s): E78.5 - Hyperlipidemia, unspecified <Zoey Cabezas PA-C - Last Filed: 06/11/21 15:01> Status: Chronic <Zoey Cabezas PA-C - Last Filed: 06/11/21 15:01> Assessment and Plan: Continue with home medication. Continue with simvastatin <Zoey Cabezas PA-C - Last Filed: 06/11/21 15:01> (5) Hypertension: Code(s): I10 - Essential (primary) hypertension <Zoey Cabezas PA-C - Last Filed: 06/11/21 15:01> Status: Chronic <Zoey Cabezas PA-C - Last Filed: 06/11/21 15:01> Assessment and Plan: Stable. Continue with home medications <Zoey Cabezas PA-C - Last Filed: 06/11/21 15:01> (6) Congestive heart failure (CHF): Qualifiers: Heart failure chronicity: chronic Heart failure type: unspecified Qualified Code(s): I50.9 - Heart failure, unspecified <Zoey Cabezas PA-C - Last Filed: 06/11/21 15:01> Code(s): I50.9 - Heart failure, unspecified <Zoey Cabezas PA-C - Last Filed: 06/11/21 15:01> Status: Chronic <Zoey Cabezas PA-C - Last Filed: 06/11/21 15:01> Assessment and Plan: Hold entresto until postassium normalizes. continue lasix <Zoey Cabezas PA-C - Last Filed: 06/11/21 15:01> (7) COPD exacerbation: Code(s): J44.1 - Chronic obstr
[2021-06-11] MEDS: RIVAROXABAN 20 MG TABLET PO (17:47)
[2021-06-11] MEDS: SIMVASTATIN 20 MG TABLET PO (20:20)
[2021-06-12] VITALS (21 sets, daily range): BP systolic 121–131; BP diastolic 53–72; PULSE 54–97; RESP 14–27; TEMP 35.9–36.6; O2SAT 92–97
[2021-06-12] MEDS: ALBUTEROL SULFATE NEB 2.5 MG/0.5 ML INH 5 MG INHALATION ×4 (02:44→20:51)
[2021-06-12] MEDS: IPRATROPIUM BR 0.02% INH SOLN 0.5 MG/2.5 ML VIAL INHALATION ×4 (02:44→20:51)
[2021-06-12 05:09] LABS: Hematocrit 38.3 % (37.0-47.0); Hemoglobin 12.1 g/dL (12.0-15.0); Mean Corpuscular HGB Conc 31.6 g/dl (32-36); Mean Corpuscular Hemoglobin 30.9 pg (26-34); Mean Corpuscular Volume 97.7 fl (80-100); Mean Platelet Volume 11.4 fl (7.4-10.4); Platelet Count Result 166 k/mm3 (150-375); Red Blood Count 3.92 M/mm3 (4.2-5.4); Red Cell Distribution Width 14.7 % (11.5-14.5); White Blood Count 7.3 K/mm3 (4.5-10.0)
[2021-06-12 05:22] LABS: Anion Gap 6 mmol/L (8-16); Blood Urea Nitrogen 55 mg/dL (7-17); Calcium 8.2 mg/dL (8.4-10.2); Carbon Dioxide 37 mmol/L (22-30); Chloride 96 mmol/L (98-107); Estimated CRCL calculation 45 ml/min; Estimated Glomerular Filt Rate 40; Glucose 121 mg/dL (65-110); Potassium 4.3 mmol/L (3.4-5.0); Sodium 139 mmol/L (137-145)
[2021-06-12 05:26] LABS: Alveolar/Arterial O2 Gradient 78.7 mmHg; Base Excess ABG 4.9 mEq/l (+/-2.0); Device NON-INVASIVE VENT; Fractional Inspired Oxygen 30 %; HCO3 ABG 30.5 mEq/l (22.0-26.0); Modified Allen's Test Pass; Non-Invasive Expiratory Pressure 8 CMH2O; Non-Invasive Inspiratory Pressure 16 CMH2O; Non-Invasive Vent Rate 24 /MIN; Oxygen Content ABG 17.2 %vol (16.0-22.0); Oxygen Saturation ABG 95.3 % (95.0-100.0); Oxyhemoglobin 94.3 % THb (90.0-100.0); PCO2 ABG 49.5 mmHg (35.0-45.0); PO2 FiO2 Ratio Arterial Blood 2.57 %; Site Drawn RIGHT RADIAL; Total Hemoglobin 12.9 g/dL (12.0-18.0); pH ABG 7.408 (7.350-7.450)
[2021-06-12] MEDS: LEVOTHYROXINE SODIUM 125 MCG TABLET PO (06:51)
[2021-06-12] MEDS: FLUTICASONE/UMECLIDIN/VILANTER 100-62.5-25 MCG ELLIPTA 1 PUFF INHALATION (07:42)
[2021-06-12] MEDS: PENTOXIFYLLINE 400 MG TABCR PO ×2 (08:55→17:25)
[2021-06-12] MEDS: PANTOPRAZOLE 40 MG TABLET PO (08:55)
[2021-06-12] MEDS: carvediloL 3.125 MG TABLET PO ×2 (08:55→20:27)
[2021-06-12] MEDS: MAGNESIUM OXIDE 400 MG TABLET PO (08:55)
[2021-06-12] MEDS: SERTRALINE HCL 25 MG TABLET PO (08:55)
[2021-06-12] MEDS: SACCHAROMYCES BOULARDII 250 MG CAPSULE PO ×2 (08:55→17:25)
[2021-06-12] MEDS: FERROUS SULFATE 324 MG TABLET PO ×2 (08:55→17:25)
[2021-06-12] MEDS: CYANOCOBALAMIN 1,000 MCG TABLET 1000 MCG PO (08:55)
[2021-06-12] MEDS: CHOLECALCIFEROL 1,000 UNITS TABLET 1000 UNITS PO (08:55)
[2021-06-12] MEDS: predniSONE 20 MG TABLET 40 MG PO (08:55)
[2021-06-12] MEDS: FUROSEMIDE 40 MG TABLET PO (08:55)
[2021-06-12] MEDS: TOLNAFTATE 1% POWDER 45 GM BTL 1 APPLIC TOPICAL ×2 (08:56→20:27)
[2021-06-12] MEDS: PREGABALIN (*CRX) 50 MG CAPSULE 200 MG PO ×2 (08:58→17:27)
--- NOTE | 2021-06-12 13:38 | PM.IMPN ---
Progress Note: A&P Assessment and Plan (1) Acute and chronic respiratory failure with hypercapnia: Code(s): J96.22 - Acute and chronic respiratory failure with hypercapnia <Zoey Cabezas PA-C - Last Filed: 06/12/21 16:43> Status: Chronic <Zoey Zhu ENRIQUE Cabezas - Last Filed: 06/12/21 16:43> Assessment and Plan: Improved w/ bipap. ABG chronic findings, stable. Switch from solumedrol to prednisone for 5 day course. Continue nebs. Continue bipap overnight. Appropriate to downgrade to med/surg. <Zoey Cabezas PA-C - Last Filed: 06/12/21 16:43> (2) Hypothyroidism: Qualifiers: Hypothyroidism type: acquired Qualified Code(s): E03.9 - Hypothyroidism, unspecified <Zoey Cabezas PA-C - Last Filed: 06/12/21 16:43> Code(s): E03.9 - Hypothyroidism, unspecified <Zoey Cabezas PA-C - Last Filed: 06/12/21 16:43> Status: Chronic <Zoey Cabezas PA-C - Last Filed: 06/12/21 16:43> Assessment and Plan: TSH WNL. Continue home meds. <Zoey Cabezas PA-C - Last Filed: 06/12/21 16:43> (3) Depression: Qualifiers: Depression Type: unspecified Qualified Code(s): F32.9 - Major depressive disorder, single episode, unspecified <Zoey Cabezas PA-C - Last Filed: 06/12/21 16:43> Code(s): F32.9 - Major depressive disorder, single episode, unspecified <Zoey Cabezas PA-C - Last Filed: 06/12/21 16:43> Status: Chronic <Zoey Cabezas PA-C - Last Filed: 06/12/21 16:43> Assessment and Plan: Continue with Zoloft. <Zoey Cabezas PA-C - Last Filed: 06/12/21 16:43> (4) Hyperlipidemia: Qualifiers: Hyperlipidemia type: unspecified Qualified Code(s): E78.5 - Hyperlipidemia, unspecified <Zoey Zhu ENRIQUE Cabezas - Last Filed: 06/12/21 16:43> Code(s): E78.5 - Hyperlipidemia, unspecified <Zoey Zhu BELGICA CabezasC - Last Filed: 06/12/21 16:43> Status: Chronic <Zoey Zhu ENRIQUE Cabezas - Last Filed: 06/12/21 16:43> Assessment and Plan: Continue with home medication. Continue with simvastatin <Zoey CarterAnjum Cabezas PA-C - Last Filed: 06/12/21 16:43> (5) Hypertension: Code(s): I10 - Essential (primary) hypertension <Zoey Zhu ENRIQUE Cabezas - Last Filed: 06/12/21 16:43> Status: Chronic <Zoey Zhu ENRIQUE Cabezas - Last Filed: 06/12/21 16:43> Assessment and Plan: Stable. Continue with home medications <Zoey Zhu ENRIQUE Cabezas - Last Filed: 06/12/21 16:43> (6) Congestive heart failure (CHF): Qualifiers: Heart failure chronicity: chronic Heart failure type: unspecified Qualified Code(s): I50.9 - Heart failure, unspecified <Zoey Zhu ENRIQUE Cabezas - Last Filed: 06/12/21 16:43> Code(s): I50.9 - Heart failure, unspecified <Zoey Zhu ENRIQUE Cabezas - Last Filed: 06/12/21 16:43> Status: Chronic <Zoey Zhu ENRIQUE Cabezas - Last Filed: 06/12/21 16:43> Assessment and Plan: Hold entresto until postassium normalizes. continue lasix <Zoey RaulAnjum Cabezas PA-C - Last Filed: 06/12/21 16:43> (7) COPD exacerbation: Code(s): J44.1 - Chronic obstructive pulmonary disease with (acute) exacerbation <Zoey Cabezas PA-C - Last Filed: 06/12/21 16:43> Status: Acute <Zoey LAnjum Cabezas, PA-C - Last Filed: 06/12/21 16:43> Assessment and Plan: Continue with home inhalers and prednisone course. <Zoey Cabezas PA-C - Last Filed: 06/12/21 16:43> (8) Atrial fibrillation: Code(s): I48.91 - Unspecified atrial fibrillation <Zoey Cabezas PA-C - Last Filed: 06/12/21 16:43> Status: Chronic <Zoey Cabezas PA-C - Last Filed: 06/12/21 16:43> Assessment and Plan: Continue with Xarelto and Coreg <Zoey Cabezas PA-C
[2021-06-12 16:00] LABS: Glucose Point of Care 180 mg/dl (65-105)
[2021-06-12] MEDS: RIVAROXABAN 20 MG TABLET PO (17:26)
[2021-06-12] MEDS: SIMVASTATIN 20 MG TABLET PO (20:27)
[2021-06-13] VITALS (17 sets, daily range): BP systolic 115–143; BP diastolic 70–86; PULSE 72–105; RESP 20–201; TEMP 35.6–36.1; O2SAT 93–100
[2021-06-13] MEDS: ALBUTEROL SULFATE NEB 2.5 MG/0.5 ML INH 5 MG INHALATION ×2 (02:32→09:42)
[2021-06-13] MEDS: IPRATROPIUM BR 0.02% INH SOLN 0.5 MG/2.5 ML VIAL INHALATION ×2 (02:33→09:42)
[2021-06-13 05:09] LABS: Hematocrit 38.5 % (37.0-47.0); Hemoglobin 12.2 g/dL (12.0-15.0); Mean Corpuscular HGB Conc 31.7 g/dl (32-36); Mean Corpuscular Hemoglobin 31.3 pg (26-34); Mean Corpuscular Volume 98.7 fl (80-100); Mean Platelet Volume 11.8 fl (7.4-10.4); Platelet Count Result 169 k/mm3 (150-375); Red Cell Distribution Width 14.6 % (11.5-14.5); White Blood Count 8.2 K/mm3 (4.5-10.0)
[2021-06-13] MEDS: LEVOTHYROXINE SODIUM 125 MCG TABLET PO (05:24)
[2021-06-13 05:25] LABS: Anion Gap 7 mmol/L (8-16); Blood Urea Nitrogen 59 mg/dL (7-17); Calcium 7.7 mg/dL (8.4-10.2); Carbon Dioxide 35 mmol/L (22-30); Chloride 96 mmol/L (98-107); Estimated CRCL calculation 48 ml/min; Estimated Glomerular Filt Rate 44; Glucose 101 mg/dL (65-110); Potassium 4.7 mmol/L (3.4-5.0); Sodium 138 mmol/L (137-145)
[2021-06-13] MEDS: FERROUS SULFATE 324 MG TABLET PO ×2 (08:39→17:40)
[2021-06-13] MEDS: SERTRALINE HCL 25 MG TABLET PO (08:39)
[2021-06-13] MEDS: FUROSEMIDE 40 MG TABLET PO (08:39)
[2021-06-13] MEDS: SACCHAROMYCES BOULARDII 250 MG CAPSULE PO ×2 (08:39→17:40)
[2021-06-13] MEDS: PENTOXIFYLLINE 400 MG TABCR PO ×2 (08:39→17:40)
[2021-06-13] MEDS: PANTOPRAZOLE 40 MG TABLET PO (08:39)
[2021-06-13] MEDS: MAGNESIUM OXIDE 400 MG TABLET PO (08:39)
[2021-06-13] MEDS: CHOLECALCIFEROL 1,000 UNITS TABLET 1000 UNITS PO (08:39)
[2021-06-13] MEDS: predniSONE 20 MG TABLET 40 MG PO (08:40)
[2021-06-13] MEDS: CYANOCOBALAMIN 1,000 MCG TABLET 1000 MCG PO (08:40)
[2021-06-13] MEDS: carvediloL 3.125 MG TABLET PO ×2 (08:40→20:48)
[2021-06-13] MEDS: PREGABALIN (*CRX) 50 MG CAPSULE 200 MG PO ×2 (08:41→17:40)
[2021-06-13] MEDS: TOLNAFTATE 1% POWDER 45 GM BTL 1 APPLIC TOPICAL ×2 (08:44→20:48)
[2021-06-13] MEDS: FLUTICASONE/UMECLIDIN/VILANTER 100-62.5-25 MCG ELLIPTA 1 PUFF INHALATION (09:42)
--- NOTE | 2021-06-13 13:11 | PM.IMPN ---
Progress Note: A&P Assessment and Plan (1) Acute and chronic respiratory failure with hypercapnia: Code(s): J96.22 - Acute and chronic respiratory failure with hypercapnia Status: Chronic Assessment and Plan: ABG on admission showing 7.27/77/83 on 3.5 L. BiPAP started with normalization of the blood gas. She has done well and BiPAP has been weaned to nighttime use only. She was treated with Solu-Medrol and nebulizer treatments. Solu-Medrol has been weaned down to prednisone and she is currently on a 5 day course. No wheezing. Continue nebs. Continue bipap at night. It appears that patient cannot go back to her assisted living. Placement is being arranged (2) COPD exacerbation: Code(s): J44.1 - Chronic obstructive pulmonary disease with (acute) exacerbation Status: Acute Assessment and Plan: As above. Continue with home inhalers and prednisone course. (3) Acute metabolic encephalopathy: Code(s): G93.41 - Metabolic encephalopathy Status: Acute Assessment and Plan: Patient was acutely confused on admission. [place] related to the respiratory failure and/or UTI and/or pneumonia. Symptoms have resolved. Continue current treatment plan. 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 CT brain no acute findings. XRs negative of bilateral shoulders and hips. Pelvis does show abnormality of her hardware. CT Lumbar spine showing surgical changes L2-L5 with loosening of lucency surrounding the L5 pedicular screws consistent with loosening; Grade 2 anterolisthesis L4 on L5 with severe disc disease and moderate to severe bilateral neural foraminal stenosis, right more than left. Prior provider discussed with orthopedics and reviewed case. She had decreased sensation to her bilateral feet which is chronic. She also has generalized decreased strength to BLE which is also chronic. [place] that she is at her baseline. She has no back pain currently. Per orthopedics these are likely chronic findings and no acute intervention is needed at this time, however she will need to follow up with her surgeon that performed her procedure at some point. Will recommend she see him in the next 1 week after discharge. (5) Pneumonia: Qualifiers: Laterality: unspecified laterality Lung location: unspecified part of lung Pneumonia type: due to unspecified organism Qualified Code(s): J18.9 - Pneumonia, unspecified organism Code(s): J18.9 - Pneumonia, unspecified organism Status: Acute Assessment and Plan: CXR showing possible infiltrate left lower lobe. Already on Rocephin so azithro added. Continue the same. (6) UTI (urinary tract infection) due to urinary indwelling Khan catheter: Code(s): T83.511A - Infection and inflammatory reaction due to indwelling urethral catheter, initial encounter; N39.0 - Urinary tract infection, site not specified Status: Acute Assessment and Plan: UA noted. Urine culture growing Klebsiella pneumoniae that is sensitive to Rocephin. Rocephin day 6. Blood cultures remain negative to date. Khan has been changed out. (7) Hypertension: Code(s): I10 - Essential (primary) hypertension Status: Chronic Assessment and Plan: Patient's blood pressure was reviewed on 06/13 Blood pressure remains well controlled. Will continue current medications. (8) Congestive heart failure (CHF): Qualifiers: Heart failure chronicity: chronic Heart failure type: unspecified Qualified Code(s): I50.9 - Heart failure, unspecified Code(s): I50.9 - Heart failure, unspecified Status: Chronic Assessment and Plan: Patient remains euvolemic. She remains on Coreg, Zocor and Lasix. She is not on aspirin possibly related to being on Xarelto. Entr
[2021-06-13] MEDS: ALBUTEROL SULFATE NEB 2.5 MG/0.5 ML INH INHALATION ×2 (14:34→20:23)
[2021-06-13] MEDS: RIVAROXABAN 20 MG TABLET PO (17:40)
[2021-06-13] MEDS: SACUBITRIL/VALSARTAN 24-26 MG TABLET 1 TAB PO (20:48)
[2021-06-13] MEDS: SIMVASTATIN 20 MG TABLET PO (20:48)
[2021-06-14] VITALS (15 sets, daily range): BP systolic 91–126; BP diastolic 48–87; PULSE 54–97; RESP 16–26; TEMP 36.1–36.6; O2SAT 93–98
[2021-06-14 05:24] LABS: Anion Gap 6 mmol/L (8-16); Blood Urea Nitrogen 46 mg/dL (7-17); Calcium 7.5 mg/dL (8.4-10.2); Carbon Dioxide 35 mmol/L (22-30); Chloride 97 mmol/L (98-107); Estimated CRCL calculation 63 ml/min; Estimated Glomerular Filt Rate > 60; Glucose 115 mg/dL (65-110); Magnesium 1.8 mg/dL (1.6-2.3); Sodium 138 mmol/L (137-145)
[2021-06-14] MEDS: LEVOTHYROXINE SODIUM 125 MCG TABLET PO (05:56)
[2021-06-14] MEDS: FLUTICASONE/UMECLIDIN/VILANTER 100-62.5-25 MCG ELLIPTA 1 PUFF INHALATION (08:58)
[2021-06-14] MEDS: CYANOCOBALAMIN 1,000 MCG TABLET 1000 MCG PO (09:25)
[2021-06-14] MEDS: predniSONE 20 MG TABLET 40 MG PO (09:26)
[2021-06-14] MEDS: carvediloL 3.125 MG TABLET PO ×2 (09:26→20:43)
[2021-06-14] MEDS: PANTOPRAZOLE 40 MG TABLET PO (09:26)
[2021-06-14] MEDS: PENTOXIFYLLINE 400 MG TABCR PO ×2 (09:27→17:15)
[2021-06-14] MEDS: FERROUS SULFATE 324 MG TABLET PO ×2 (09:27→17:15)
[2021-06-14] MEDS: CHOLECALCIFEROL 1,000 UNITS TABLET 1000 UNITS PO (09:27)
[2021-06-14] MEDS: FUROSEMIDE 40 MG TABLET PO (09:27)
[2021-06-14] MEDS: PREGABALIN (*CRX) 50 MG CAPSULE 200 MG PO ×2 (09:27→17:15)
[2021-06-14] MEDS: SACUBITRIL/VALSARTAN 24-26 MG TABLET 1 TAB PO ×2 (09:27→20:43)
[2021-06-14] MEDS: SERTRALINE HCL 25 MG TABLET PO (09:27)
[2021-06-14] MEDS: MAGNESIUM OXIDE 400 MG TABLET PO (09:27)
[2021-06-14] MEDS: AZITHROMYCIN 250 MG TABLET PO (09:27)
[2021-06-14] MEDS: SACCHAROMYCES BOULARDII 250 MG CAPSULE PO ×2 (09:29→17:15)
[2021-06-14] MEDS: ALBUTEROL SULFATE NEB 2.5 MG/0.5 ML INH INHALATION ×2 (14:15→21:36)
--- NOTE | 2021-06-14 14:50 | PM.IMPN ---
Progress Note: A&P Assessment and Plan (1) Acute and chronic respiratory failure with hypercapnia: Code(s): J96.22 - Acute and chronic respiratory failure with hypercapnia Status: Chronic Assessment and Plan: ABG on admission showing 7.27/77/83 on 3.5 L. BiPAP started with normalization of the blood gas. She has done well and BiPAP has been weaned to nighttime use only. She was treated with Solu-Medrol and nebulizer treatments. Solu-Medrol has been weaned down to prednisone and she is currently on a 5 day course. No wheezing. Continue nebs. Continue bipap at night. It appears that patient cannot go back to her assisted living. Placement is being arranged (2) COPD exacerbation: Code(s): J44.1 - Chronic obstructive pulmonary disease with (acute) exacerbation Status: Acute Assessment and Plan: As above. Continue with home inhalers and prednisone course. (3) Acute metabolic encephalopathy: Code(s): G93.41 - Metabolic encephalopathy Status: Acute Assessment and Plan: Patient was acutely confused on admission. [place] related to the respiratory failure and/or UTI and/or pneumonia. Symptoms have resolved. Continue current treatment plan. 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 CT brain no acute findings. XRs negative of bilateral shoulders and hips. Pelvis does show abnormality of her hardware. CT Lumbar spine showing surgical changes L2-L5 with loosening of lucency surrounding the L5 pedicular screws consistent with loosening; Grade 2 anterolisthesis L4 on L5 with severe disc disease and moderate to severe bilateral neural foraminal stenosis, right more than left. Prior provider discussed with orthopedics and reviewed case. She had decreased sensation to her bilateral feet which is chronic. She also has generalized decreased strength to BLE which is also chronic. [place] that she is at her baseline. She has no back pain currently. Per orthopedics these are likely chronic findings and no acute intervention is needed at this time, however she will need to follow up with her surgeon that performed her procedure at some point. Will recommend she see him in the next 1 week after discharge. (5) Pneumonia: Qualifiers: Laterality: unspecified laterality Lung location: unspecified part of lung Pneumonia type: due to unspecified organism Qualified Code(s): J18.9 - Pneumonia, unspecified organism Code(s): J18.9 - Pneumonia, unspecified organism Status: Acute Assessment and Plan: CXR showing possible infiltrate left lower lobe. Already on Rocephin so azithro added. She completed 5 days of Azithro. Continue the follow. (6) UTI (urinary tract infection) due to urinary indwelling Khan catheter: Code(s): T83.511A - Infection and inflammatory reaction due to indwelling urethral catheter, initial encounter; N39.0 - Urinary tract infection, site not specified Status: Acute Assessment and Plan: UA noted. Urine culture growing Klebsiella pneumoniae that is sensitive to Rocephin. Rocephin day 7. Blood cultures remain negative to date. Khan has been changed out. (7) Hypertension: Code(s): I10 - Essential (primary) hypertension Status: Chronic Assessment and Plan: Patient's blood pressure was reviewed on 06/14 Blood pressure remains well controlled and soft at times Will continue current medications. (8) Congestive heart failure (CHF): Qualifiers: Heart failure chronicity: chronic Heart failure type: unspecified Qualified Code(s): I50.9 - Heart failure, unspecified Code(s): I50.9 - Heart failure, unspecified Status: Chronic Assessment and Plan: Patient remains euvolemic. She remains on Coreg, Entresto and Lasix. She is not on
[2021-06-14] MEDS: TOLNAFTATE 1% POWDER 45 GM BTL 1 APPLIC TOPICAL ×2 (16:36→20:42)
[2021-06-14] MEDS: RIVAROXABAN 20 MG TABLET PO (17:16)
--- NOTE | 2021-06-14 20:07 | PC.NURSE ---
Patient moved to 3 med-surg room 329 at 2000. All belongings brought with patient to room. Patient oriented to room.
[2021-06-14] MEDS: SIMVASTATIN 20 MG TABLET PO (20:43)
[2021-06-15] VITALS (13 sets, daily range): BP systolic 117; BP diastolic 89; PULSE 62–96; RESP 16–24; TEMP 36.3; O2SAT 93–98
[2021-06-15 06:20] LABS: Hematocrit 37.5 % (37.0-47.0); Hemoglobin 11.6 g/dL (12.0-15.0); Immature Platelet Fraction Pct 9.1 % (0.9-11.2); Mean Corpuscular HGB Conc 30.9 g/dl (32-36); Mean Corpuscular Hemoglobin 30.7 pg (26-34); Mean Corpuscular Volume 99.2 fl (80-100); Mean Platelet Volume 12.1 fl (7.4-10.4); Platelet Count Result 137 k/mm3 (150-375); Red Blood Count 3.78 M/mm3 (4.2-5.4); Red Cell Distribution Width 14.9 % (11.5-14.5); White Blood Count 7.2 K/mm3 (4.5-10.0)
[2021-06-15 06:23] LABS: Anion Gap 2 mmol/L (8-16); Blood Urea Nitrogen 40 mg/dL (7-17); Calcium 7.7 mg/dL (8.4-10.2); Carbon Dioxide 36 mmol/L (22-30); Chloride 101 mmol/L (98-107); Estimated CRCL calculation 63 ml/min; Estimated Glomerular Filt Rate > 60; Glucose 86 mg/dL (65-110); Magnesium 1.8 mg/dL (1.6-2.3); Potassium 3.8 mmol/L (3.4-5.0); Sodium 139 mmol/L (137-145)
[2021-06-15] MEDS: LEVOTHYROXINE SODIUM 125 MCG TABLET PO (06:50)
[2021-06-15] MEDS: FLUTICASONE/UMECLIDIN/VILANTER 100-62.5-25 MCG ELLIPTA 1 PUFF INHALATION (08:00)
[2021-06-15] MEDS: ALBUTEROL SULFATE NEB 2.5 MG/0.5 ML INH INHALATION ×3 (08:00→20:31)
[2021-06-15] MEDS: MAGNESIUM OXIDE 400 MG TABLET PO (08:41)
[2021-06-15] MEDS: CHOLECALCIFEROL 1,000 UNITS TABLET 1000 UNITS PO (08:41)
[2021-06-15] MEDS: PENTOXIFYLLINE 400 MG TABCR PO ×2 (08:41→18:16)
[2021-06-15] MEDS: MENTHOL 10% / METHYL SALICYLATE 15% 57 GM TUBE 1 APPLIC TOPICAL (08:41)
[2021-06-15] MEDS: FUROSEMIDE 40 MG TABLET PO (08:42)
[2021-06-15] MEDS: predniSONE 20 MG TABLET 40 MG PO (08:42)
[2021-06-15] MEDS: FERROUS SULFATE 324 MG TABLET PO ×2 (08:42→18:16)
[2021-06-15] MEDS: SACCHAROMYCES BOULARDII 250 MG CAPSULE PO ×2 (08:42→18:15)
[2021-06-15] MEDS: carvediloL 3.125 MG TABLET PO ×2 (08:42→20:59)
[2021-06-15] MEDS: SERTRALINE HCL 25 MG TABLET PO (08:42)
[2021-06-15] MEDS: SACUBITRIL/VALSARTAN 24-26 MG TABLET 1 TAB PO ×2 (08:42→20:59)
[2021-06-15] MEDS: PANTOPRAZOLE 40 MG TABLET PO (08:42)
[2021-06-15] MEDS: PREGABALIN (*CRX) 50 MG CAPSULE 200 MG PO ×2 (08:45→18:19)
[2021-06-15] MEDS: CYANOCOBALAMIN 1,000 MCG TABLET 1000 MCG PO (08:46)
[2021-06-15] MEDS: TOLNAFTATE 1% POWDER 45 GM BTL 1 APPLIC TOPICAL ×2 (08:46→21:01)
--- NOTE | 2021-06-15 10:05 | PCNWS ---
Weekly nutritional screen. Patient is tolerating current diet with adequate intake. No weight loss reported. No nutritional needs at this time.
--- NOTE | 2021-06-15 16:27 | PM.IMPN ---
Progress Note: A&P Assessment and Plan (1) Acute and chronic respiratory failure with hypercapnia: Code(s): J96.22 - Acute and chronic respiratory failure with hypercapnia Status: Chronic Assessment and Plan: ABG on admission showing 7.27/77/83 on 3.5 L. BiPAP started with normalization of the blood gas. She has done well and BiPAP has been weaned to nighttime use only. She was treated with Solu-Medrol and nebulizer treatments. Solu-Medrol has been weaned down to prednisone and she is currently on a 5 day course. No wheezing. Continue nebs. Continue bipap at night. It appears that patient cannot go back to her assisted living. Placement is being arranged (2) COPD exacerbation: Code(s): J44.1 - Chronic obstructive pulmonary disease with (acute) exacerbation Status: Acute Assessment and Plan: As above. Continue with home inhalers and prednisone course. (3) Acute metabolic encephalopathy: Code(s): G93.41 - Metabolic encephalopathy Status: Acute Assessment and Plan: Patient was acutely confused on admission. [place] related to the respiratory failure and/or UTI and/or pneumonia. Symptoms have resolved. Continue current treatment plan. 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 CT brain no acute findings. XRs negative of bilateral shoulders and hips. Pelvis does show abnormality of her hardware. CT Lumbar spine showing surgical changes L2-L5 with loosening of lucency surrounding the L5 pedicular screws consistent with loosening; Grade 2 anterolisthesis L4 on L5 with severe disc disease and moderate to severe bilateral neural foraminal stenosis, right more than left. Prior provider discussed with orthopedics and reviewed case. She had decreased sensation to her bilateral feet which is chronic. She also has generalized decreased strength to BLE which is also chronic. [place] that she is at her baseline. She has no back pain currently. Per orthopedics these are likely chronic findings and no acute intervention is needed at this time, however she will need to follow up with her surgeon that performed her procedure at some point. Will recommend she see him in the next 1 week after discharge. (5) Pneumonia: Qualifiers: Laterality: unspecified laterality Lung location: unspecified part of lung Pneumonia type: due to unspecified organism Qualified Code(s): J18.9 - Pneumonia, unspecified organism Code(s): J18.9 - Pneumonia, unspecified organism Status: Acute Assessment and Plan: CXR showing possible infiltrate left lower lobe. Treated with Rocephin and azithro. She has completed a course of abx. Continue the follow. (6) UTI (urinary tract infection) due to urinary indwelling Khan catheter: Code(s): T83.511A - Infection and inflammatory reaction due to indwelling urethral catheter, initial encounter; N39.0 - Urinary tract infection, site not specified Status: Acute Assessment and Plan: UA noted. Urine culture growing Klebsiella pneumoniae that is sensitive to Rocephin. Completed Rocephin x 7 doses. Blood cultures remain negative to date. Khan has been changed out. Stop Rocephin (7) Hypertension: Code(s): I10 - Essential (primary) hypertension Status: Chronic Assessment and Plan: Patient's blood pressure was reviewed on 06/15 Blood pressure remains well controlled but soft at times Will continue current medications. (8) Congestive heart failure (CHF): Qualifiers: Heart failure type: unspecified Heart failure chronicity: chronic Qualified Code(s): I50.9 - Heart failure, unspecified Code(s): I50.9 - Heart failure, unspecified Status: Chronic Assessment and Plan: Patient remains euvolemic. She remains on Coreg, Entresto
--- NOTE | 2021-06-15 16:39 | PC.NURSE ---
On 06/15/21, the student, Armen [facility], provided care and [facility]. I have reviewed the student's documentation and agree with the findings.
[2021-06-15] MEDS: RIVAROXABAN 20 MG TABLET PO (18:16)
[2021-06-15] MEDS: SIMVASTATIN 20 MG TABLET PO (20:59)
[2021-06-16] VITALS (9 sets, daily range): BP systolic 108–119; BP diastolic 49–64; PULSE 62–91; RESP 14–22; TEMP 36.1–36.4; O2SAT 95–98
[2021-06-16] MEDS: LEVOTHYROXINE SODIUM 125 MCG TABLET PO (06:12)
[2021-06-16] MEDS: PREGABALIN (*CRX) 50 MG CAPSULE 200 MG PO ×2 (09:07→16:48)
[2021-06-16] MEDS: predniSONE 20 MG TABLET 40 MG PO (09:08)
[2021-06-16] MEDS: SERTRALINE HCL 25 MG TABLET PO (09:08)
[2021-06-16] MEDS: carvediloL 3.125 MG TABLET PO (09:09)
[2021-06-16] MEDS: CHOLECALCIFEROL 1,000 UNITS TABLET 1000 UNITS PO (09:10)
[2021-06-16] MEDS: CYANOCOBALAMIN 1,000 MCG TABLET 1000 MCG PO (09:10)
[2021-06-16] MEDS: PENTOXIFYLLINE 400 MG TABCR PO ×2 (09:11→16:44)
[2021-06-16] MEDS: FERROUS SULFATE 324 MG TABLET PO ×2 (09:11→16:44)
[2021-06-16] MEDS: PANTOPRAZOLE 40 MG TABLET PO (09:11)
[2021-06-16] MEDS: SACUBITRIL/VALSARTAN 24-26 MG TABLET 1 TAB PO (09:11)
[2021-06-16] MEDS: SACCHAROMYCES BOULARDII 250 MG CAPSULE PO ×2 (09:11→16:44)
[2021-06-16] MEDS: MAGNESIUM OXIDE 400 MG TABLET PO (09:11)
[2021-06-16] MEDS: FUROSEMIDE 40 MG TABLET PO (09:12)
[2021-06-16] MEDS: TOLNAFTATE 1% POWDER 45 GM BTL 1 APPLIC TOPICAL (09:12)
[2021-06-16] MEDS: ALBUTEROL SULFATE NEB 2.5 MG/0.5 ML INH INHALATION ×2 (09:13→13:46)
[2021-06-16] MEDS: FLUTICASONE/UMECLIDIN/VILANTER 100-62.5-25 MCG ELLIPTA 1 PUFF INHALATION (09:14)
--- NOTE | 2021-06-16 14:50 | PM.DS ---
DS: Admitting Diagnosis Discharge Date 06/16/21 Admitting Diagnosis Altered mental status DS: Discharge Diagnosis Discharge Diagnosis (1) Acute and chronic respiratory failure with hypercapnia: Code(s): J96.22 - Acute and chronic respiratory failure with hypercapnia Status: Chronic Assessment and Plan: ABG on admission showing 7./83 on 3.5 L. BiPAP started with improvement of the blood gas. She has done well and BiPAP has been weaned to nighttime use only. She was treated with Solu-Medrol and nebulizer treatments. Solu-Medrol has been weaned down to prednisone and she completed a 5 day course. No wheezing. Treated with nebs as well. (2) COPD exacerbation: Code(s): J44.1 - Chronic obstructive pulmonary disease with (acute) exacerbation Status: Acute Assessment and Plan: As above. We continued with home inhalers and prednisone course. (3) Acute metabolic encephalopathy: Code(s): G93.41 - Metabolic encephalopathy Status: Acute Assessment and Plan: Patient was acutely confused on admission. [place] related to the respiratory failure and/or UTI and/or pneumonia. Symptoms have resolved. 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 CT brain no acute findings. XRs negative of bilateral shoulders and hips. Pelvis does show abnormality of her hardware. CT Lumbar spine showing surgical changes L2-L5 with loosening of lucency surrounding the L5 pedicular screws consistent with loosening; Grade 2 anterolisthesis L4 on L5 with severe disc disease and moderate to severe bilateral neural foraminal stenosis, right more than left. Other provider discussed with orthopedics and reviewed case. She had decreased sensation to her bilateral feet which is chronic. She also has generalized decreased strength to BLE which is also chronic. [place] that she was at her baseline. She has no back pain currently. Per orthopedics these are likely chronic findings and no acute intervention is needed at this time, however she will need to follow up with her surgeon that performed her procedure at some point. It was recommended to the patient that she see him in the next 1 week after discharge. (5) Pneumonia: Qualifiers: Laterality: unspecified laterality Lung location: unspecified part of lung Pneumonia type: due to unspecified organism Qualified Code(s): J18.9 - Pneumonia, unspecified organism Code(s): J18.9 - Pneumonia, unspecified organism Status: Acute Assessment and Plan: CXR showing possible infiltrate left lower lobe. Treated with Rocephin and azithro. She has completed a course of abx. (6) UTI (urinary tract infection) due to urinary indwelling Khan catheter: Code(s): T83.511A - Infection and inflammatory reaction due to indwelling urethral catheter, initial encounter; N39.0 - Urinary tract infection, site not specified Status: Acute Assessment and Plan: Patietn with a complicated UTI related to her chronic indwelling Khan. UA noted. Urine culture growing Klebsiella pneumoniae that was sensitive to Rocephin. Completed a course of Rocephin. Blood cultures remain negative to date. Khan was changed out. (7) Hypertension: Code(s): I10 - Essential (primary) hypertension Status: Chronic Assessment and Plan: Patient's blood pressure was monitored closely and remained well controlled (8) Congestive heart failure (CHF): Qualifiers: Heart failure type: unspecified Heart failure chronicity: chronic Qualified Code(s): I50.9 - Heart failure, unspecified Code(s): I50.9 - Heart failure, unspecified Status: Chronic Assessment and Plan: Patient remained euvolemic. We continued her on Coreg, Entresto and Lasix. (9) Atr
--- NOTE | 2021-06-16 15:52 | PCPTNOTE ---
Patient declined PT this afternoon. Patient states she is being discharged home and is waiting for her son to bring her cloths.
[2021-06-16] MEDS: RIVAROXABAN 20 MG TABLET PO (16:44)
[2021-06-16] MEDS: LIDOCAINE 5% PATCH 1 PATCH TRANSDERM (16:53)
== END 2021-06-16 18:52 | disposition home health service (06) | DRG 698 ==
LOC: ANHED 15:22 → ANHIMU 21:02 → ANH3MEDSUR 06-16 11:02 → ANHIMU 06-19 14:41
PROVIDERS: Emergency Medicine; Internal Medicine; Nurse Practitioner; Admitting Provider Internal Medicine Critical Care Medicine; Emergency Provider Emergency Medicine; PCP Nurse Practitioner Family; Visit Provider Physician Assistant
DX: T83.511A Infection and inflammatory reaction due to indwelling urethral catheter, initial encounter (principal); J96.22 Acute and chronic respiratory failure with hypercapnia; G93.41 Metabolic encephalopathy; J18.9 Pneumonia, unspecified organism; J44.1 Chronic obstructive pulmonary disease with (acute) exacerbation; E87.3 Alkalosis; J44.0 Chronic obstructive pulmonary disease with (acute) lower respiratory infection; N39.0 Urinary tract infection, site not specified; B96.1 Klebsiella pneumoniae [K. pneumoniae] as the cause of diseases classified elsewhere; I11.0 Hypertensive heart disease with heart failure; I50.9 Heart failure, unspecified; I48.91 Unspecified atrial fibrillation; E87.5 Hyperkalemia; E83.42 Hypomagnesemia; E78.5 Hyperlipidemia, unspecified; E03.9 Hypothyroidism, unspecified; F32.9 Major depressive disorder, single episode, unspecified; R29.6 Repeated falls; Z28.21 Immunization not carried out because of patient refusal; Z79.01 Long term (current) use of anticoagulants; Z79.899 Other long term (current) drug therapy; Z85.118 Personal history of other malignant neoplasm of bronchus and lung; Z87.891 Personal history of nicotine dependence; Z99.3 Dependence on wheelchair
CPT/HCPCS: 36415; 36600; 70450; 71045; 72131; 73030; 73521; 80048; 80053; 81001; 82375; 82805; 82948; 83050; 83735; 84443; 85025; 85027; 85055; 87040; 87077; 87086; 87088; 87186; 94002; 94003; 94640; 96365; 96375; 97110; 97161; 97165; 97530; 97535; 99285; A9270; G0378; J0456; J0696; J2060; J2270; J2920; J2930; J7512

== ENCOUNTER 2021-08-10 01:58 | Inpatient (IN) | payer MEDICARE, SELFPAY ==
[2021-08-10] VITALS (17 sets, daily range): BP systolic 103–139; BP diastolic 46–83; PULSE 68–93; RESP 14–22; TEMP 35.9–36.6; O2SAT 90–100; BMI 41.4
--- NOTE | ~2021-08-10 | XR_ITS ---
XR chest 1V portable DATE: 09/16/2021 15:13 INDICATION: Shortness of breath TECHNIQUE: Portable AP chest on 09/16/2021 at 1508 hours COMPARISON: 09/15/2021 AP and lateral chest FINDINGS: There is partial aeration of the right lung which was completely opacified on 09/15/2021. Th ere is patchy right lung infiltrate and/atelectasis. There is a large right pleural effusion. Cardiomegaly. There is pulmonary vascular congestion. There is diffuse left-sided infiltrate, substan tially increased since 09/15/2021, suggesting pulmonary edema. IMPRESSION: Interval mild aeration of the right lung Large right pleural effusion Extensive bilateral pulmonary infiltrates, suggesting pulmonary edema. Pneumonia is not excluded Endovascular stent of descending thoracic aorta Surgical fusion of cervical spine Diffuse osteopenia Reviewed, dictated and finalized at location A. ANALYST IMPRESSION: Interval mild aeration of the right lung Large right pleural effusion Extensive bilateral pulmonary infiltrates, suggesting pulmonary edema. Pneumoni a is not excluded Endovascular stent of descending thoracic aorta Surgical fusion of cervical spine Diffuse osteopenia
--- NOTE | ~2021-08-10 | XR_ITS ---
EXAMINATION: XR chest 1V portable DATE: 08/29/2021 08:58 INDICATION: COVID pneumonia TECHNIQUE: frontal view of the chest was obtained. COMPARISON: Chest radiograph dated 08/26/2021 FINDINGS: Bilateral airspace opacities without significant interval change attending for differences in positio lyssa in the left mid and lower lung zones. In the right lung there is been improvement in opacities i n the region of the right mid to upper lung zone, and increase in density of the opacities in the rig ht lower and lateral midlung zones and no significant change in medial right upper lung zone. No inte rval change in the right lung could be due to repositioning of a right pleural effusion. No pneumotho rax or definitive left pleural effusion. Cardiac silhouette is largely obscured. Stenting along the d escending thoracic aorta. Instrumented lower cervical anterior spinal fusion. IMPRESSION: 1. Unchanged opacities in the left mid to lower lung zone and evolving pattern of opacities in the ri ght hemithorax with worsening in the mid to lower lung zone and some improvement in the mid to upper lung zone. Differential includes pneumonia, atelectasis and likely shifting small to moderate-sized r ight pleural effusion. Reviewed, dictated and finalized at location A. EM SUPPORT TECHNICIAN IMPRESSION: 1. Unchanged opacities in the left mid to lower lung zone and evolving pattern of opacities in the right hemithorax with worsening in the mid to lower lung zo ne and some improvement in the mid to upper lung zone. Differential includes pn eumonia, atelectasis and likely shifting small to moderate-sized right pleural effusion.
--- NOTE | ~2021-08-10 | XR_ITS ---
EXAMINATION: XR chest 2V DATE: 09/15/2021 13:58 INDICATION: Shortness of breath. TECHNIQUE: Frontal and lateral views of the chest were obtained on 4 radiographs. COMPARISON: Chest single view 08/29/2021, chest CT 09/12/2021 FINDINGS: There is complete opacification of right hemithorax. There are airspace opacities in left u pper lung zone. There are lucencies and interstitial opacities throughout left lung. No left-sided pl eural effusion. No pneumothorax. The heart size is obscured. There is a stent graft in descending tho racic aorta. There are changes of posterior fusion procedure in lumbar spine. There are changes of an terior fusion procedure in cervical spine. There is an old healed fracture of right fifth rib. IMPRESSION: 1. Worsened complete opacification of right hemithorax, likely some combination of atelectasis, pneum onia, and pleural effusion. 2. Diffuse left lung disease, likely pneumonia superimposed on emphysema. Reviewed, dictated and finalized at location A. ANICAL METER TESTER IMPRESSION: 1. Worsened complete opacification of right hemithorax, likely some combination of atelectasis, pneumonia, and pleural effusion. 2. Diffuse left lung disease, likely pneumonia superimposed on emphysema.
--- NOTE | ~2021-08-10 | XR_ITS ---
EXAMINATION: XR chest 1V portable DATE: 08/17/2021 13:58 INDICATION: Altered mental status. TECHNIQUE: A single frontal view of the chest was obtained. COMPARISON: Chest 2 views 08/15/2021, chest CT 08/30/2020 FINDINGS: There is marked elevation of right hemidiaphragm. There are airspace opacities in right jose g with a peripheral predominance. There are airspace opacities in left mid and lower lung zones. No p neumothorax. The heart size is normal. There is a stent graft in descending thoracic aorta. There are changes of anterior fusion procedure in cervical spine. IMPRESSION: 1. Stable airspace opacities in right lung and left mid and lower lung zones, consistent with atelect asis versus pneumonia. 2. Chronic marked elevation of right hemidiaphragm. Reviewed, dictated and finalized at location B. REPRESENTATIVE IMPRESSION: 1. Stable airspace opacities in right lung and left mid and lower lung zones, c onsistent with atelectasis versus pneumonia. 2. Chronic marked elevation of right hemidiaphragm.
--- NOTE | ~2021-08-10 | XR_ITS ---
XR chest 1V portable DATE: 08/12/2021 06:38 INDICATION: Hypoxia, hypercapnia TECHNIQUE: Portable upright AP chest on 08/12/2021 0540 hours COMPARISON: 08/11/2021 portable AP chest at 1412 hours FINDINGS: Again noted is prominent elevation right leaf of the diaphragm. Cardiomegaly. Prominent aortic calcification. Endovascular stent of the descending thoracic aorta. There is pulmonary vascular prominence. There is infiltrate and/atelectasis involving primarily the r ight lung base and left lower lung. Diffuse osteopenia. Status post anterior cervical spine surgical fusion IMPRESSION: Congestive changes and bilateral predominantly lower lung infiltrates, with little interv al change since 08/11/2021 Reviewed, dictated and finalized at location A. EE WEIGHER IMPRESSION: Congestive changes and bilateral predominantly lower lung infiltrat es, with little interval change since 08/11/2021
--- NOTE | ~2021-08-10 | US_ITS ---
EXAMINATION: US thoracentesis DATE: 09/20/2021 13:54 INDICATION: Right pleural effusion TECHNIQUE: The procedure and its risks and benefits were discussed with the patient. Potential risks discussed included bleeding, infection, and pneumothorax. The patient understood the risks and agreed to proceed. The skin was prepped and draped in sterile fashion. 1% lidocaine was used for local anes thesia. Under ultrasound guidance, a 5 Fr catheter with trochar was advanced into the right pleural e ffusion. Fluid was aspirated. The catheter was removed, and a dressing was applied. There were no imm ediate complications. FINDINGS: Ultrasound images demonstrate a small right pleural effusion and the catheter within the fluid. IMPRESSION: 1. Successful ultrasound-guided thoracentesis yielding 400 mL of clear yellowish fluid. Reviewed, dictated and finalized at location A. BING SERVICE TECHNICIAN IMPRESSION: 1. Successful ultrasound-guided thoracentesis yielding 400 mL of clear yellowi sh fluid.
--- NOTE | ~2021-08-10 | CT_ITS ---
EXAMINATION: CT brain wo [facility] EXAM DATE: 08/17/2021 09:45 INDICATION: Altered mental status. TECHNIQUE: Spiral CT of the head was performed without contrast. Axial, coronal and sagittal images were reviewed. The dose-length product (DLP) for this examination was 681.00 mGy-cm. The exposure w as tailored according to patient size, and iterative reconstruction (ASIR) was used as additional dos e reduction technique. Comparison is made to prior examination from 08/10/2021. FINDINGS: There is no acute intraparenchymal hemorrhage. No evidence of intraparenchymal brain mass lesion. No evidence of acute infarction. There is no mass effect or midline shift. The ventricles are normal in size. There are no extra-axial collections. There are no acute calvarial fractures. T he orbits are unremarkable. Soft tissue is unremarkable. The visualized sinuses and mastoid air mar ls are well aerated. IMPRESSION: 1. No acute intracranial findings. Reviewed, dictated and finalized at location A. ASSEMBLER COMMISSARY KITCHEN
--- NOTE | ~2021-08-10 | XR_ITS ---
EXAMINATION: XR chest 1V portable DATE: 09/18/2021 07:13 INDICATION: Shortness of breath. TECHNIQUE: A single frontal view of the chest was obtained. COMPARISON: Chest single view 09/17/2021, chest CT 09/12/2021 FINDINGS: There is a moderate-sized right pleural effusion. There is a small left pleural effusion. T here are airspace and interstitial opacities throughout the lungs bilaterally. No pneumothorax. Cardi omegaly is noted. There is a stent graft in descending thoracic aorta. There are changes of anterior fusion procedure in cervical spine. IMPRESSION: 1. Moderate-sized right pleural effusion small left pleural effusion with improvement on the right. 2. Stable diffuse lung disease consistent with pulmonary edema versus pneumonia. 3. Cardiomegaly. Reviewed, dictated and finalized at location A. TECH IMPRESSION: 1. Moderate-sized right pleural effusion small left pleural effusion with impro vement on the right. 2. Stable diffuse lung disease consistent with pulmonary edema versus pneumonia . 3. Cardiomegaly.
--- NOTE | ~2021-08-10 | XR_ITS ---
EXAMINATION: XR chest 1V portable INDICATION: COVID pneumonia TECHNIQUE: Portable AP chest at 1518 hours COMPARISON: 08/21/2021 FINDINGS: There is chronic elevation of the right hemidiaphragm. Airspace opacities are present in al l lung zones. There is no pleural effusion or pneumothorax. The cardiomediastinal silhouette is stabl e. Surgical changes are noted in the cervical spine. There is also a stent graft in the descending th oracic aorta. IMPRESSION: 1. Diffuse lung disease with interval worsening, consistent with pneumonia/or pulmonary edema. Reviewed, dictated and finalized at location F. ANALYSIS LABORATORY ASSISTANT IMPRESSION: 1. Diffuse lung disease with interval worsening, consistent with pneumonia/or p ulmonary edema.
--- NOTE | ~2021-08-10 | CT_ITS ---
EXAMINATION: CT abdomen pelvis wo con EXAM DATE: 08/18/2021 16:17 INDICATION: Sepsis. Lung cancer history. TECHNIQUE: Spiral CT of the abdomen and pelvis was performed without contrast. Axial, coronal and s agittal images of the abdomen and pelvis were reviewed. The dose-length product (DLP) for this exami nation was 1729.93 mGy-cm. The exposure was tailored according to patient size (auto mA exposure con trol), and iterative reconstruction (ASIR) was used as additional dose reduction technique. Correlati on is made to CT 12/15/2019. FINDINGS: There is bibasilar airspace disease, with volume loss indicating atelectasis. Superimposed left basilar pneumonia also possible. Pulmonary arterial hypertension. Severe right hemidiaphragm abdoulaye vation could indicate chronic paralysis. The liver, spleen, adrenal glands and pancreas are unremarkable. There is cholelithiasis within an o therwise unremarkable gallbladder. No evidence of obstructive biliary disease. There is no nephroli thiasis or hydronephrosis. Left renal cyst. The uterus is not identified and has likely been surgica lly resected. The bladder is collapsed with Khan catheter balloon anchor inside. There is no retro peritoneal or pelvic lymphadenopathy. There is moderate scattered arteriosclerotic disease. Stented lower thoracic aorta, treated aneurysm. There are no findings to suggest appendicitis. There is moderate sigmoid predominant colonic divertic ulosis. There is no adjacent inflammatory change to suggest diverticulitis. The stomach and small inocencia wel are unremarkable. There is expected amount of colonic stool. No free intraperitoneal gas. L umbar fusion hardware. Lucency surrounding the lowermost L5 pedicular screws indicating loosening. Compared to prior study 2019, the airspace disease has developed. IMPRESSION: 1. Multi segmental left lower lobe, segmental right lower lobe atelectasis. Possible superimposed le ft lower lobe pneumonia. 2. Cholelithiasis. 3. Colonic diverticulosis. 4. No acute intra-abdominal findings. Reviewed, dictated and finalized at location A. RAL CONTRACTOR IMPRESSION: 1. Multi segmental left lower lobe, segmental right lower lobe atelectasis. Po ssible superimposed left lower lobe pneumonia. 2. Cholelithiasis. 3. Colonic diverticulosis. 4. No acute intra-abdominal findings.
--- NOTE | ~2021-08-10 | XR_ITS ---
XR chest 1V portable DATE: 08/11/2021 14:18 INDICATION: Dyspnea TECHNIQUE: Portable upright AP chest on 08/07/2000 2114: COMPARISON: 08/07/2021 portable AP chest at 1349 hours FINDINGS: There are relatively low lung volumes with bibasilar infiltrate and/or atelectasis. There is diminished pulmonary vascular prominence consistent with improvement of pulmonary vascular c ongestion since 0611 hours today. There is minimal if any pleural effusion. No pneumothorax. Endovascular stent of descending thoracic aorta. Heart size is not optimally evaluated because of mag nification with AP projection and rotation of the patient. Diffuse osteopenia. IMPRESSION: Improvement of pulmonary vascular congestion since earlier today Bibasilar infiltrate and/atelectasis Reviewed, dictated and finalized at location A. IAL POPULATION PARAPROFESSIONAL
--- NOTE | ~2021-08-10 | XR_ITS ---
EXAMINATION: XR chest 2V DATE: 08/10/2021 02:24 INDICATION: Shortness of breath. TECHNIQUE: Frontal and lateral views of the chest were obtained. COMPARISON: Chest single view 06/11/2021, chest CT 08/30/2020 FINDINGS: Again seen is marked elevation of right hemidiaphragm. There are mild airspace opacities in the mid and lower lung zones. No pleural effusion or pneumothorax. The heart size is normal. There i s enlargement of main pulmonary artery, consistent with pulmonary arterial hypertension. There is a s tent graft in descending thoracic aorta. There are changes of anterior fusion procedure in cervical s pine. There is an old healed fracture of right fifth rib. IMPRESSION: 1. Worsened airspace opacities in the mid and lower lung zones, consistent with pulmonary edema versu s pneumonia. 2. Chronic marked elevation of right hemidiaphragm. Reviewed, dictated and finalized at location A. GENETIC TECHNOLOGIST IMPRESSION: 1. Worsened airspace opacities in the mid and lower lung zones, consistent with pulmonary edema versus pneumonia. 2. Chronic marked elevation of right hemidiaphragm.
--- NOTE | ~2021-08-10 | CT_ITS ---
EXAMINATION: CT diagnostic chest wo con DATE: 09/18/2021 16:18 INDICATION: Necrotizing pneumonia of the right middle lobe TECHNIQUE: Computed tomography (CT) of the chest was performed without intravenous contrast. The dose -length product (DLP) was 669.55 mGy-cm. Automated exposure control and iterative reconstruction tech Qubrit were employed. COMPARISON: 09/12/2021 FINDINGS: There are moderate size right and small left pleural effusions. A portion of the right pleu ral effusion is loculated fluid and extends into the major fissure. Airspace opacities are present in the lower lobes, right greater than left. There is no pneumothorax. Airspace opacities in the upper lung zones are not significantly changed. The right middle lobe appears to be collapsed. Cardiomegaly is noted. There is calcified coronary artery atherosclerosis. Stones are present in the gallbladder which is mildly distended. IMPRESSION: 1. Diffuse lung disease, consistent with pneumonia. 2. Small left pleural effusion and moderate-sized right pleural effusion with loculation. 3. Likely right middle lobe collapse. 4. Cholelithiasis with mild bladder distention. Recommend correlation for right upper quadrant tender ness. Reviewed, dictated and finalized at location B. ARY PRODUCTS INSPECTORS IMPRESSION: 1. Diffuse lung disease, consistent with pneumonia. 2. Small left pleural effusion and moderate-sized right pleural effusion with l oculation. 3. Likely right middle lobe collapse. 4. Cholelithiasis with mild bladder distention. Recommend correlation for right upper quadrant tenderness.
--- NOTE | ~2021-08-10 | XR_ITS ---
XR chest 1V 08/10/2021 13:52 Indication: Hypercarbic respiratory failure Procedure: AP portable chest Comparison: Comparison to multiple prior studies sequentially, with oldest reviewed study dated 04/2021. Findings: Elevated right diaphragm which is chronic. Cardiomegaly. There is atherosclerosis and ectas ia of the aorta. There is an aortic stent in the descending thoracic aorta. There is mild interstitia l edema. No significant effusion or pneumothorax. Impression: 1: Cardiomegaly with mild interstitial edema. Reviewed, dictated and finalized at location A. FICATION ENGINEER Impression: 1: Cardiomegaly with mild interstitial edema.
--- NOTE | ~2021-08-10 | XR_ITS ---
XR chest 1V portable DATE: 08/11/2021 06:36 INDICATION: Hypoxemia TECHNIQUE: Portable AP chest on 08/11/2021 at 0611 hours COMPARISON: 08/10/2021 portable AP chest at 1350 hours FINDINGS: There is a limited rotated single portable AP view of the chest. Postoperative change from cervical spine surgical fusion. Descending thoracic aortic endovascular stent. Cardiomegaly. Aortic arch prominent calcification. There is prominent elevation the right leaf of the diaphragm. There is pulmonary vascular congestion. There are diffuse bilateral pulmonary infiltrates, with more prominent infiltrate or atelectasis at the lung bases. Diffuse osteopenia. IMPRESSION: Cardiomegaly, congestive changes Bilateral predominantly central and particularly lower lung infiltrates which may be due to pulmonary edema, pneumonia and/or aspiration, increased since 08/10/2021 Reviewed, dictated and finalized at location A. MACHINE FEEDER IMPRESSION: Cardiomegaly, congestive changes Bilateral predominantly central and particularly lower lung infiltrates which m ay be due to pulmonary edema, pneumonia and/or aspiration, increased since 07/20
--- NOTE | ~2021-08-10 | XR_ITS ---
EXAMINATION: XR chest 2V DATE: 08/15/2021 11:18 INDICATION: Pneumonia TECHNIQUE: frontal and lateral views of the chest were obtained. COMPARISON: Chest radiograph dated 08/12/2021 FINDINGS: Unchanged elevation of the right hemidiaphragm. Opacities at the left lower lung zone with blunting a t the posterior sulcus consistent with small left pleural effusion and associated atelectasis and/or pneumonia. No pneumothorax or right-sided pleural effusion. Heart size is normal. Enlargement of the central pulmonary arteries consistent with pulmonary arterial hypertension. Endoluminal stent graftin g along the descending thoracic aorta. Vertical raulito and pedicle screw fixation for posterior spinal f usion in the lumbar spine. Old healed lateral right fifth rib fracture. IMPRESSION: 1. Chronic elevation of the right hemidiaphragm. 2. Opacities in the left lower lung zone consistent with small left pleural effusion and associated a telectasis and/or pneumonia. Reviewed, dictated and finalized at location A. TENANCE TEAM LEADER IMPRESSION: 1. Chronic elevation of the right hemidiaphragm. 2. Opacities in the left lower lung zone consistent with small left pleural eff usion and associated atelectasis and/or pneumonia.
--- NOTE | ~2021-08-10 | CT_ITS ---
EXAMINATION: CT brain wo con DATE: 08/10/2021 13:49 INDICATION: Patient unresponsive. TECHNIQUE: Computed tomography (CT) of the head was performed without intravenous contrast. The dose- length product was 681.00 mGy-cm. Automated exposure control and iterative reconstruction technique w ere employed. COMPARISON: CT dated 06/08/2021 FINDINGS: Brain parenchymal volume is normal. No acute intracranial hemorrhage, infarction, mass or m ass effect. There are surgical changes of the mandible. Paranasal sinuses and mastoids are pneumatize d. No depressed skull fractures. There are scattered mild periventricular and subcortical white matte r changes, most likely related to small vessel ischemic disease (microangiopathy). No ventriculomegal y or midline shift. Basilar cisterns are patent. There is intracranial atherosclerosis. IMPRESSION: 1. No acute intracranial abnormality. Reviewed, dictated and finalized at location A. OTTON PACKER
--- NOTE | ~2021-08-10 | US_ITS ---
US venous doppler [facility] DATE: 08/10/2021 17:38 INDICATION: Swelling of the lower extremities TECHNIQUE: Real-time imaging, color flow imaging and Doppler analysis of the veins of the lower extre mities COMPARISON: None FINDINGS: There is spontaneous and phasic flow and normal augmentation and color flow signal and norm al compression of the deep veins of both lower extremities. The greater saphenous veins are patent. IMPRESSION: No evidence of deep venous thrombosis of the lower extremities Reviewed, dictated and finalized at Location A. Reviewed, dictated and finalized at location B. RVISOR AIRCRAFT MAINTENANCE
--- NOTE | ~2021-08-10 | CT_ITS ---
EXAMINATION: CT diagnostic chest wo con DATE: 08/30/2021 20:14 INDICATION: Pleural effusion TECHNIQUE: Computed tomography (CT) of the chest show was performed without intravenous contrast. The dose-length product (DLP) was 1001.47 mGy-cm. Automated exposure control and iterative reconstructio n technique were employed. COMPARISON: 08/30/2020 FINDINGS: There is a small loculated right pleural effusion with fluid in the major fissure. There is moderate emphysema of the upper lobes. There are airspace opacities of the right lower lobe with int erval worsening. Patchy groundglass opacities are seen throughout the remaining lungs. There is no pn eumothorax. The heart size is normal. There is marked elevation of the right hemidiaphragm. Calcified coronary artery atherosclerosis is noted. An endovascular stent is present in the distal thoracic ao rta. There is moderate thoracic spondylosis. IMPRESSION: 1. Small loculated right pleural effusion with fluid in the major fissure. 2. Right lower lobe airspace opacities with interval worsening, consistent with pneumonia. Reviewed, dictated and finalized at location F. CLERK
--- NOTE | ~2021-08-10 | CT_ITS ---
EXAMINATION: CT chest abdomen pelvis wo con DATE: 09/12/2021 12:38 ADON INDICATION: Shortness of breath. Acute renal failure. TECHNIQUE: Computed tomography (CT) of the chest, abdomen, and pelvis was performed without intraveno us contrast. The dose-length product was 1855.71 mGy-cm. Automated exposure control and iterative rec onstruction technique were employed. COMPARISON: CT dated 08/30/2021 FINDINGS: CHEST CT: There is extensive atherosclerosis of the aorta. There is a descending thoracic aortic stent. Small p leural effusions. Extensive bilateral airspace consolidation, consistent with pneumonia. No significa nt thoracic lymphadenopathy. ABDOMEN/PELVIS CT: Gallbladder is moderately distended. There are gallstones. The liver, spleen, pancreas, adrenal gland s and right kidney are unremarkable. There is a small exophytic left renal lesion posteriorly which i s obscured by streak artifact from adjacent spinal hardware. Consider correlation with ultrasound. Fo krysta catheter present in the bladder. Bladder is decompressed. Nonobstructive bowel gas pattern. Colon ic diverticulosis without evidence for diverticulitis. There is subcutaneous edema of the anterior ab dominal wall, right greater than left. There is dependent fluid in the back soft tissues. No free air . No evidence for diverticulitis. There are spinal fusion at L2-L5. IMPRESSION: 1. Extensive bilateral airspace disease, compatible with pneumonia. 2: Small pleural effusions. 3: Cholelithiasis. 4: Small hyperdense left renal lesions, not well visualized due to streak artifact. Correlation with ultrasound recommended. Reviewed, dictated and finalized at location B. IMPRESSION: 1. Extensive bilateral airspace disease, compatible with pneumonia. 2: Small pleural effusions. 3: Cholelithiasis. 4: Small hyperdense left renal lesions, not well visualized due to streak artif act. Correlation with ultrasound recommended.
--- NOTE | ~2021-08-10 | XR_ITS ---
EXAMINATION: [id number] DATE: 09/20/2021 13:52 INDICATION: Pleural effusion post right thoracentesis TECHNIQUE: frontal view of the chest was obtained. COMPARISON: Chest radiograph and CT dated 09/18/2021 FINDINGS: Decreased right lung volume with chronic elevation of the right hemidiaphragm. Airspace opacities sca ttered throughout both lungs. Small bilateral pleural effusions. No pneumothorax. Heart size is vera l. Atherosclerotic thoracic aorta with stenting along the descending thoracic aorta. Instrumented low er cervical anterior spinal fusion. IMPRESSION: 1. Diffuse bilateral lung disease consistent with pneumonia with differential including pulmonary ethan ma. 2. Small bilateral pleural effusions. Reviewed, dictated and finalized at location A. WARE MANAGER IMPRESSION: 1. Diffuse bilateral lung disease consistent with pneumonia with differential i ncluding pulmonary edema. 2. Small bilateral pleural effusions.
--- NOTE | ~2021-08-10 | US_ITS ---
EXAMINATION: US soft tissue chest DATE: 09/01/2021 14:38 INDICATION: Right pleural effusion TECHNIQUE: Multiple grayscale and Doppler ultrasound images of the right chest were obtained for a pl anned thoracentesis. COMPARISON: CT dated 08/30/2021 FINDINGS: There is prominent elevation of the right hemidiaphragm with the liver position of the mid right thor ax and the gallbladder the mid to lower thorax. The right pleural effusion was identified. IMPRESSION: 1. No evident right pleural effusion and the planned thoracentesis was deferred. 2. Prominent elevation the right hemidiaphragm with the liver positioned in the mid right hemithorax. Reviewed, dictated and finalized at location A. TH GRADE TEACHER IMPRESSION: 1. No evident right pleural effusion and the planned thoracentesis was deferred . 2. Prominent elevation the right hemidiaphragm with the liver positioned in the mid right hemithorax.
--- NOTE | ~2021-08-10 | XR_ITS ---
EXAMINATION: XR chest 1V portable DATE: 08/21/2021 08:56 INDICATION: Shortness of breath. Chronic obstructive pulmonary disease. TECHNIQUE: A single frontal view of the chest was obtained. COMPARISON: Chest single view 08/17/2021, CT abdomen and pelvis 08/18/2021 FINDINGS: Again seen is marked elevation of right hemidiaphragm. There are airspace opacities at the lung bases. No pleural effusion or pneumothorax. The heart size is normal. There is a stent graft in descending thoracic aorta. There are changes of anterior fusion procedure in cervical spine. There is an old healed fracture of right fifth rib. IMPRESSION: 1. Stable airspace opacities at the lung bases, consistent with atelectasis versus pneumonia. 2. Chronic marked elevation of right hemidiaphragm. Reviewed, dictated and finalized at location A. ETING COMMUNICATIONS MANAGER IMPRESSION: 1. Stable airspace opacities at the lung bases, consistent with atelectasis lizzy ginny pneumonia. 2. Chronic marked elevation of right hemidiaphragm.
--- NOTE | ~2021-08-10 | XR_ITS ---
EXAMINATION: XR chest 1V portable DATE: 09/17/2021 06:14 INDICATION: Shortness of breath. TECHNIQUE: A single frontal view of the chest was obtained. COMPARISON: Chest single view 09/16/2021, chest CT 09/12/2021 FINDINGS: There are large right and small left pleural effusions. There are airspace opacities in all lung zones bilaterally. No pneumothorax. Cardiomegaly is noted. There is a stent graft in descending thoracic aorta. There are changes of anterior fusion procedure in cervical spine. IMPRESSION: 1. Stable large right and small left pleural effusions. 2. Diffuse lung disease with mild worsening in right upper lung zone, consistent with pulmonary edema versus pneumonia. 3. Cardiomegaly. Reviewed, dictated and finalized at location A. UP ARTIST IMPRESSION: 1. Stable large right and small left pleural effusions. 2. Diffuse lung disease with mild worsening in right upper lung zone, consisten t with pulmonary edema versus pneumonia. 3. Cardiomegaly.
--- NOTE | ~2021-08-10 | US_ITS ---
EXAMINATION: US renal BI DATE: 08/18/2021 14:29 INDICATION: Acute kidney injury. TECHNIQUE: Multiple ultrasound grayscale images of the kidneys were obtained. COMPARISON: Ultrasound kidneys 09/04/2020, lumbar spine CT 06/10/2021 FINDINGS: The right kidney measures 9.0 x 5.2 x 5.9 cm. The left kidney measures 9.0 x 6.1 x 6.1 cm. The kidney s demonstrate normal parenchymal echogenicity. There is no hydronephrosis. The bladder is decompresse d by a Khan catheter. IMPRESSION: 1. Normal kidney sizes. No hydronephrosis. Reviewed, dictated and finalized at location A. R DEVELOPER
--- NOTE | 2021-08-10 02:21 | ED.GENADULT ---
HPI - General Adult General Chief complaint: Unspecified Stated complaint: resp distress and blood in catheter Time Seen by Provider: 08/10/21 02:21 Source: patient and EMS Mode of arrival: EMS Limitations: no limitations History of Present Illness HPI narrative: Patient is a 76-year-old female brought in from [facility]/assisted living facility due to low oxygen saturation. According to EMS intermediate staff told him that her oxygen was in the low 80s. Patient states that she is supposed to be on 4 L continuously but when EMS arrived she was only on 2 L. Patient states that she does not know why her oxygen was turned down to 2 L, somebody must have messed with it . Upon arrival patient is on 4 L and her oxygen saturation is at 95 to 96%. Related Data Home Medications Medication Instructions Recorded Confirmed carvedilol [Coreg] 3.125 mg PO BID 10/22/19 06/09/21 pantoprazole [Protonix] 40 mg PO QAM 10/22/19 06/09/21 pentoxifylline 400 mg PO BID 10/22/19 06/09/21 pregabalin [Lyrica] 200 mg PO BID 10/22/19 06/09/21 sertraline [Zoloft] 25 mg PO QAM 10/22/19 06/09/21 simvastatin [Zocor] 20 mg PO HS 10/22/19 06/09/21 B12 Active 1,000 mcg PO DAILY 08/10/20 06/09/21 Digestive Advantage Probiotic 2 cap PO BID 08/10/20 06/09/21 cholecalciferol (vitamin D3) 25 mcg PO DAILY 08/10/20 06/09/21 [Vitamin D3] levothyroxine [Synthroid] 125 mcg PO DAILY 08/10/20 06/09/21 Xarelto 20 mg PO QPM 08/24/20 06/09/21 albuterol sulfate 90 mcg INHALATION Q4-6H PRN 06/09/21 06/09/21 Allergies Allergy/AdvReac Type Severity Reaction Status Date / Time No Known Allergies Allergy Verified 05/26/21 11:47 Review of Systems Review of Systems: All systems reviewed & are unremarkable except as noted in HPI and below Constitutional: Constitutional: Denies body ache(s), Denies chills, Denies excessive sweating, Denies fatigue, Denies fever(s), Denies headache(s), Denies lethargy, Denies malaise, Denies weakness and Denies weight loss Eyes: Eyes: Denies blurry vision, Denies change in vision and Denies loss of vision ENT: Denies dizziness, Denies ear discharge, Denies headache(s), Denies lip swelling, Denies epistaxis, Denies nasal congestion, Denies neck pain, Denies throat swelling and Denies tongue swelling Cardiovascular: Cardiovascular: Denies chest pain, Denies chest pain at rest, Denies chest pain with activity, Denies diaphoresis, Denies rapid heart rate, Denies edema, Denies irregular heart rhythm, Denies lightheadedness, Denies palpitations, Denies dyspnea and Denies dyspnea on exertion Respiratory: Respiratory: Denies chest congestion, Denies cough, Denies hemoptysis, Denies dyspnea and Denies dyspnea on exertion Gastrointestinal: Gastrointestinal: Denies abdominal pain, Denies melena, Denies hematochezia, Denies diarrhea, Denies nausea, Denies vomiting and Denies hematemesis Musculoskeletal: Musculoskeletal: Denies abnormal gait, Denies deformity, Denies joint swelling, Denies limited range of motion, Denies neck pain and Denies numbness Neurologic: Denies Abnormal speech present, Denies abnormal gait, Denies confusion, Denies dizziness, Denies headache(s), Denies focal weakness, Denies loss of vision, Denies numbness, Denies Other visual disturbances, Denies Sensory deficit (Neuro) and Denies weakness Psychiatric: Psychiatric: Denies confusion, Denies depression, Denies auditory hallucinations, Denies homicidal ideation and Denies suicidal ideation Endocrine: Endocrine: Denies cold intolerance, Denies excessive sweating, Denies fatigue, Denies heat intolerance and Denies palpitations Hematologic/Lymphatic: Hematologic/Lymphatic: Denies easy bleeding and Denies easy bruising Allergic/Immunologic: Allergic/Immunologic: Denies lip swelling, Denies throat swelling and Denies tongue swelling PMFSH Past Medical History Medical History Arterial stent thrombosis Left leg Atrial fib
--- NOTE | 2021-08-10 02:28 | ECG_ITS ---
Measurements Intervals [place] Rate: 80 P: TN: 0 QRS: 39 QRSD: 93 T: 120 QT: 391 QTc: 451 Interpretive Statements ATRIAL FIBRILLATION NONSPECIFIC ST & T-WAVE ABNORMALITY- DIFFUSE LEADS BASELINE ARTIFACT- I, II, III, AVR, AVL, AVF ABNORMAL ECG Electronically Signed On 08-10-2021 7:46:00 COMMUNICATIONS PROJECT MANAGER by Jason Richards D.O.
[2021-08-10 03:01] LABS: Basophils Percent Auto 0.5 % (0.2-1.2); Eosinophils Absolute Auto 0.1 K/mm3 (0-0.3); Eosinophils Percent Auto 1.8 % (0-4.4); Hematocrit 38.9 % (37.0-47.0); Hemoglobin 11.4 g/dL (12.0-15.0); Immature Granulocyte Absolute 0.03 K/mm3 (0.00-0.031); Immature Granulocyte Percent A 0.5 % (0-0.5); Immature Platelet Fraction Pct 7.9 % (0.9-11.2); Lymphocytes Absolute Auto 1.08 K/mm3 (0.9-3.2); Lymphocytes Percent Auto 17.9 % (18.3-44.2); Mean Corpuscular HGB Conc 29.3 g/dl (32-36); Mean Corpuscular Hemoglobin 32.1 pg (26-34); Mean Corpuscular Volume 109.6 fl (80-100); Mean Platelet Volume 11.8 fl (7.4-10.4); Monocytes Absolute Auto 0.6 K/mm3 (0.1-0.6); Monocytes Percent Auto 10.1 % (2.6-8.5); Neutrophils Absolute Auto 4.2 K/mm3 (1.3-6.7); Neutrophils Percent Auto 69.2 % (45.5-73.1); Platelet Count Result 145 k/mm3 (150-375); Red Blood Count 3.55 M/mm3 (4.2-5.4); Red Cell Distribution Width 15.9 % (11.5-14.5)
[2021-08-10 03:21] LABS: Alanine Aminotransferase 9 U/L (4-35); Albumin Level 3.6 g/dL (3.5-5.1); Alkaline Phosphatase 76 U/L (38-126); Aspartate Amino Transferase 17 U/L (14-36); Bilirubin,Total 0.7 mg/dL (0.2-1.3); Blood Urea Nitrogen 19 mg/dL (7-17); Carbon Dioxide > 40 mmol/L (22-30); Chloride 83 mmol/L (98-107); Estimated CRCL calculation 45 ml/min; Estimated Glomerular Filt Rate 54; Glucose 105 mg/dL (65-110); NT Pro B Type Natriuretic Pept 2540 pg/mL (5-100); Potassium 2.3 mmol/L (3.4-5.0); Sodium 143 mmol/L (137-145); Troponin I < 0.012 ng/mL (0.000-0.034)
[2021-08-10] MEDS: POTASSIUM CHLORIDE 20 MEQ PACKET (FOR LIQUID) 40 MEQ PO (03:32)
[2021-08-10] MEDS: KCL 20 MEQ/SW 100 ML 100 ML 50 MEQ IVPB (03:55)
[2021-08-10 04:16] LABS: Potassium 2.7 mmol/L (3.4-5.0)
--- NOTE | 2021-08-10 05:39 | PM.IMHP ---
H&P: HPI History of Present Illness Date/Time: 08/10/21 05:39 Chief Complaint: Shortness of breath Narrative: This is a 76-year-old female with past medical history significant for chronic hypoxic and hypercapnic respiratory failure, obstructive sleep apnea on CPAP at nighttime, COPD, congestive heart failure, atrial fibrillation,.. [facility] and she was brought to the emergency room via EMS due to a staph concerns for the patient's oxygen saturation on is staying in the 80s% upon it it EMS arrival patient was on 2 L of oxygen according to patient she should be on 4 L at all times. At the time of my visit patient was on CPAP I was unable to give any history which has been obtained mainly upon reviewing of medical records and discussion with emergency room doctor. Preliminary workup in the emergency room was significant for blood gas with an ABG of 7.4 pCO2 of 51 and PO2 of 70 patient was placed on CPAP. Decision has been made to place the patient in observation for further evaluation ,management and treatment. Review of Systems Review of Systems: Patient was brought to the emergency room via EMS from [facility] due to a staph concerns for the patient's oxygen saturation is staying in the 80s% at the time of my visit patient was on CPAP and was unable to give any history. ROS unobtainable: Yes unobtainable due to medical condition [facility] Past Medical History Medical History (Updated 08/10/21 @ 06:04 by Oseas Givens MD) Arterial stent thrombosis Left leg Atrial fibrillation 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[facility]; Dr Shi, biztalk developer COPD (chronic obstructive pulmonary disease) Deficits with air trapping and increased airway resistance with lack of response to bronchodilator therapy. Now on Trilogy. Depression Descending aortic aneurysm Stable fusiform 4.7 cm within stent graft H/O: lung cancer 2006 chemotherapy and s/p lobectomy Hemorrhoids Hyperlipidemia Hypertension Hypothyroidism Morbid obesity Neuropathy Peptic ulcer disease Peripheral artery disease Surgical History Surgical History H/O tubal ligation History of appendectomy Open appendectomy for perforated appendicitis. History of colonoscopy History of endovascular stent graft for abdominal aortic aneurysm History of esophagogastroduodenoscopy (EGD) History of lobectomy of lung Right upper lobectomy at [facility] due to lung cancer in 2005. History of total hysterectomy with bilateral salpingo-oophorectomy (BSO) Laparoscopic. Family History Family History Father Family history of malignant neoplasm Family history of arthritis Carcinoma of colon Sibling Family history of arthritis Mother Family history of malignant neoplasm breast cancer developed to bone; Other Family history of malignant neoplasm of bone Family history of thyroid disease Social History Social History Social History: The patient is . She has 1 son that is her only child. He is a durable power united states attorney for healthcare. She is wheelchair-bound and has home health coming about once a week. She resides at [facility]. She smoked 2 packs per day for 40 years but quit smoking in 2005. 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 Code status: DNR state form on chart Smoking packs per day: 2 Smoking cigarettes per day: 40.0 Years smoked: 40 Smoking pack-years: 80.00 Smoking status: Former smoker Alcohol intake: never Substance use: never Substance use type: does not use Gender identity (if verbalized by the patient): Female Sexual Orientation (if Verbalized by the Patient): Straight or Heterosexual Spiritual care concerns: No Agree to blood products: Yes Me
--- NOTE | 2021-08-10 06:12 | ADMGEN ---
This patient, Valorie Harris, was admitted to 2 Medical Room 260-. Patient/family oriented to hospital policies and general routines including ID bracelet, bed and alarms, visiting hours, pain management, procedures, bathroom and other care routines, personal items, smoking policy, room service/diet, and visiting hours. Information on how to activate the Rapid Response Team has been discussed. Patient/Family are encouraged to report perceived risks to care and to ask questions if they do not understand what they are told or what they should do.
[2021-08-10] MEDS: MENTHOL 10% / METHYL SALICYLATE 15% 57 GM TUBE 1 APPLIC TOPICAL (10:44)
[2021-08-10] MEDS: carvediloL 3.125 MG TABLET PO ×2 (10:44→17:58)
[2021-08-10] MEDS: CALCIUM CARBONATE (OSCAL) 500 MG TABLET PO ×2 (10:45→17:59)
[2021-08-10] MEDS: DICYCLOMINE HCL 10 MG CAPSULE 20 MG PO ×2 (10:45→17:58)
[2021-08-10] MEDS: SERTRALINE HCL 25 MG TABLET PO (10:45)
[2021-08-10] MEDS: FUROSEMIDE 40 MG TABLET PO (10:45)
[2021-08-10] MEDS: PENTOXIFYLLINE 400 MG TABCR PO ×2 (10:46→17:58)
[2021-08-10] MEDS: PANTOPRAZOLE 40 MG TABLET PO (10:46)
[2021-08-10] MEDS: CHOLECALCIFEROL 1,000 UNITS TABLET 1000 UNITS PO (10:46)
[2021-08-10] MEDS: FERROUS SULFATE 324 MG TABLET PO ×2 (10:46→17:58)
[2021-08-10] MEDS: PREGABALIN (*CRX) 50 MG CAPSULE 200 MG PO ×2 (10:47→17:58)
[2021-08-10] MEDS: SACUBITRIL/VALSARTAN 24-26 MG TABLET 1 TAB PO ×2 (10:47→21:14)
[2021-08-10] MEDS: MAGNESIUM OXIDE 400 MG TABLET PO (10:47)
[2021-08-10 11:10] LABS: Blood Urea Nitrogen 19 mg/dL (7-17); Calcium 8.7 mg/dL (8.4-10.2); Carbon Dioxide > 40 mmol/L (22-30); Chloride 83 mmol/L (98-107); Estimated CRCL calculation 52 ml/min; Estimated Glomerular Filt Rate 49; Glucose 172 mg/dL (65-110); Potassium 2.6 mmol/L (3.4-5.0); Sodium 141 mmol/L (137-145)
[2021-08-10 11:28] LABS: Magnesium 1.4 mg/dL (1.6-2.3)
--- NOTE | 2021-08-10 12:31 | PM.IMPN ---
Progress Note: A&P Assessment and Plan (1) Hypokalemia: Code(s): E87.6 - Hypokalemia Status: Acute Assessment and Plan: Patient is a 76-year-old woman with a history of chronic respiratory failure on 4 L of oxygen via nasal cannula, COPD, history of right lobectomy, systolic congestive heart failure, hypothyroidism, atrial fibrillation on Xarelto, who presented to the emergency room via EMS from living facility for respiratory distress and blood in the Khan catheter per EMS report. 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 She states around 0130 two man who works at the facility walked in, told her to get dressed and she was going to the hospital. Patient denies any change to her breathing or her urine output from her chronic Khan catheter. Initial vitals showed blood pressure 135/74, heart rate 80, afebrile, normal oxygenation 97% on 4 L. initial labs showed normal white blood cell count 6.0, slight anemia with a hemoglobin of 11.4 which appears to be at her baseline, thrombocytopenia at 135, normal differential, hypokalemia at 2.7, elevated serum bicarb greater than 40, creatinine 1.0, BUN 19, normal LFTs, normal troponin, BNP elevated at 2540. Chest x-ray showed Worsened airspace opacities in the mid and lower lung zones, consistent with pulmonary edema versus pneumonia. Chronic marked elevation of right hemidiaphragm. Patient was admitted into the hospital for further workup and evaluation for her hypokalemia. Patient was given potassium in the emergency room and recheck potassium this morning showed she was still severely hypokalemic at 2.6 and magnesium was low at 1.4. She will be given IV magnesium 3 g as well as 60 mEq of potassium p.o.. Will also schedule for a 2nd 40 mEq of potassium to be given this evening. Will recheck her potassium and magnesium in the morning (2) Unresponsive: Code(s): R41.89 - Other symptoms and signs involving cognitive functions and awareness Status: Acute Assessment and Plan: Nurse called me this afternoon about the patient having decreased responsiveness. She tried to give her potassium pills but could not wake her up. I looked to the patient's medication history and she has not been given any sedating medication I ordered a stat ABG which showed normal pH but her pCO2 was 89, she was hypoxic at 83% on 5 L via nasal cannula I talked to the power system electrical engineer about the patient who recommends further workup to rule out stroke versus infection as the cause since her pH is normal. I placed patient on a BiPAP and she is doing much better, able to be aroused and answered questions and following commands appropriately. She could not tell me that she was in the hospital states ?I can not think of the word?. Will get a CT brain stat and chest x-ray stat and urinalysis stat to look for other forms of possible infection versus stroke. Will consult pulmonology for further evaluation and workup Will keep the patient on BiPAP at this time until pulmonology can further evaluate the patient. Continue monitoring. (3) Acute and chronic respiratory failure with hypercapnia: Code(s): J96.22 - Acute and chronic respiratory failure with hypercapnia Status: Chronic Assessment and Plan: Patient has chronic respiratory failure on 4 L of oxygen. Patient had unresponsive episode is now on a BiPAP. Will continue monitoring her oxygenation and mental status. Lungs are otherwise clear Will order a stat chest x-ray for further evaluation Continue monitoring. (4) COPD exacerbation: Code(s): J44.1 - Chronic obstructive pulmonary disease with (acute) exacerbation Status: Acute Assessment and Plan: Lungs are clear. Continue home medications. No need for breathing treatments or steroids
[2021-08-10] MEDS: MAGNESIUM SULFATE 3GM/D5W100ML 3 GM/100 ML BAG IVPB (12:43)
[2021-08-10 12:47] LABS: pH ABG 7.416 (7.350-7.450)
[2021-08-10 12:48] LABS: Base Excess ABG 26.9 mEq/l (+/-2.0); HCO3 ABG 56.4 mEq/l (22.0-26.0); PCO2 ABG 89.7 mmHg (35.0-45.0); PO2 ABG 50.1 mmHg (80.0-100.0)
[2021-08-10 12:50] LABS: Alveolar/Arterial O2 Gradient 131.9 mmHg; Oxygen Content ABG 13.4 %vol (16.0-22.0); Total Hemoglobin 11.3 g/dL (12.0-18.0)
[2021-08-10 12:51] LABS: Methemoglobin ABG 0.3 %THb (0-1.5)
[2021-08-10 12:52] LABS: Device NASAL CANNULA; Fractional Inspired Oxygen 40 %; Modified Allen's Test Pass; PO2 FiO2 Ratio Arterial Blood 1.25 %; Reduced Hemoglobin 15.7 %THb (0-5.0); Site Drawn LEFT RADIAL
[2021-08-10] MEDS: POTASSIUM CHLORIDE 20 MEQ TABLET 60 MEQ PO (14:27)
--- NOTE | 2021-08-10 14:52 | PM.CNPUL ---
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 The patient has had frequent hospitalizations for acute on chronic hypercapnic respiratory failure. She presented with hypoxemia and severe hypokalemia. Arterial blood gases showed mixed respiratory acidosis and metabolic alkalosis. The patient has metabolic alkalosis with severe hypokalemia, hypochloremia, and hypomagnesemia related to chronic diuretic use. she has received oral potassium and magnesium with no significant change of her serum potassium. It is unclear whether she had acute mental status changes related to hypoxemia and hypercapnia or to TIA. Patient seems to have responded to BiPAP support. Arterial blood gases have shown significantly elevated carbon dioxide, and serum bicarbonate in the face of a normal pH suggestive of a mixed chronic respiratory acidosis and metabolic alkalosis acid-base disorder. I suspect that simple increased potassium intake will not correct the hypokalemia unless we restore the contracted blood volume. the plan is as follows. I would continue with noninvasive ventilatory support for now, using patient's own home ventilator. I would monitor blood gases on home ventilator and frequently check oxyhemoglobin saturation. To correct the contraction alkalosis associated with hypokalemia and hypochloremia, in addition to replacing KCL orally, I would start the patient on normal saline at 100 cc/hour and closely monitor hemodynamic status. The case was discussed with the hospitalist. (4) Morbid obesity: Code(s): E66.01 - Morbid (severe) obesity due to excess calories Status: Acute (5) Hx of cancer of lung: Code(s): Z85.118 - Personal history of other malignant neoplasm of bronchus and lung Status: Acute (6) Disorder of diaphragm: Code(s): J98.6 - Disorders of diaphragm Status: Acute (7) Congestive heart failure (CHF): Qualifiers: Heart failure type: unspecified Heart failure chronicity: chronic Qualified Code(s): I50.9 - Heart failure, unspecified Code(s): I50.9 - Heart failure, unspecified Status: Chronic (8) COPD (chronic obstructive pulmonary disease): Qualifiers: COPD type: unspecified COPD Qualified Code(s): J44.9 - Chronic obstructive pulmonary disease, unspecified Code(s): J44.9 - Chronic obstructive pulmonary disease, unspecified Status: Chronic History of Present Illness History of Present Illness Consult date: 08/10/21 Chief complaint: Acute Hypokalemia, COPD, CHF, Atrial Fib Narrative: This 76-year-old female was admitted into the hospital with respiratory distress. [facility]. She has history of chronic hypercapnic respiratory failure and has been on a noninvasive ventilatory support at night. The patient was found to have hypoxemia at the prison and that was attributed to lower oxygen flow she was using. She is supposed to be using 4 liters/minute. In the emergency room the patient was found to have blood pressure 135/74 heart rate of 80 and normal oxygenation 97% on 4 L. She was found to have severe hypokalemia and elevated BNP; chest x-ray showed some airspace opacities in the mid and lower lung volumes. She has had chronic marked elevation of the right hemidiaphragm. The patient has been treated with potassium and magnesium replacement orally
--- NOTE | 2021-08-10 15:46 | PCOTNOTE ---
Attempted to see pt. for evaluation. Per nurse report, hold pt. until tomorrow d/t pt. fatigue
[2021-08-10 16:25] LABS: Add Urine Microscopic? YES; Appearance Urine Clear (Clear); Bacteria Urine Trace /hpf; Bilirubin Urine Negative (Negative); Blood Urine 2+ (Negative); Color Urine Yellow (Yellow); Glucose Urine UA Negative (Negative); Hyaline Casts Urine 20-29 /lpf; Ketones Urine Negative (Negative); Leukocyte Esterase Ur Negative LEU/UL (Negative); Mucus Urine Rare /lpf; Nitrate Urine Negative (Negative); Protein Urine 1+ mg/dL (Negative); Specific Grav Ur 1.009 (1.001-1.035); Squamous Epithelial Cell Urine Rare /hpf (Few); Urobilinogen Urine Negative mg/dL (<2.0); WBC Urine 16-20 /hpf
[2021-08-10] MEDS: KCL 20MEQ/0.9% SOD CHL 1,000 ML 100 ML IV CONT (16:43)
[2021-08-10 17:00] LABS: pH ABG 7.444 (7.350-7.450)
[2021-08-10 17:03] LABS: PCO2 ABG 82.1 mmHg (35.0-45.0); PO2 ABG 54.7 mmHg (80.0-100.0)
[2021-08-10 17:04] LABS: Base Excess ABG 26.2 mEq/l (+/-2.0)
[2021-08-10 17:05] LABS: Alveolar/Arterial O2 Gradient 165.4 mmHg; Oxygen Content ABG 14.2 %vol (16.0-22.0); Oxygen Saturation ABG 87.6 % (95.0-100.0); Total Hemoglobin 11.5 g/dL (12.0-18.0)
[2021-08-10 17:07] LABS: Carboxyhemoglobin 0.1 % THb (0-2.0); Methemoglobin ABG 0.2 %THb (0-1.5); Oxyhemoglobin 87.8 % THb (90.0-100.0); Reduced Hemoglobin 11.9 %THb (0-5.0)
[2021-08-10 17:08] LABS: Fractional Inspired Oxygen 44 %; Modified Allen's Test Pass; PO2 FiO2 Ratio Arterial Blood 1.24 %; Site Drawn RIGHT RADIAL
[2021-08-10 17:09] LABS: Device NON-INVASIVE VENT
[2021-08-10 17:10] LABS: Non-Invasive Vent Rate 18 /MIN
[2021-08-10 17:12] LABS: Non-Invasive Expiratory Pressure 6 CMH2O; Non-Invasive Inspiratory Pressure 12 CMH2O
[2021-08-10] MEDS: RIVAROXABAN 20 MG TABLET PO (17:58)
--- NOTE | 2021-08-10 18:25 | PC.NURSE ---
Patient son update via phone on the patient being transferred to IMU bed 212.
--- NOTE | 2021-08-10 19:46 | PC.NURSE ---
Report given per Tonya to IMU nurse, pt transported to room 212. Belongings sent with patient
[2021-08-10] MEDS: SIMVASTATIN 20 MG TABLET PO (21:14)
[2021-08-11] VITALS (17 sets, daily range): BP systolic 93–111; BP diastolic 41–72; PULSE 68–89; RESP 17–26; TEMP 36.2–37; O2SAT 92–100
[2021-08-11] MEDS: LEVOTHYROXINE SODIUM 125 MCG TABLET PO (05:32)
[2021-08-11 06:22] LABS: pH ABG 7.358 (7.350-7.450)
[2021-08-11 06:23] LABS: Alveolar/Arterial O2 Gradient 244.5 mmHg; Base Excess ABG 23.5 mEq/l (+/-2.0); HCO3 ABG 53.9 mEq/l (22.0-26.0); Oxygen Content ABG 15.3 %vol (16.0-22.0); Oxygen Saturation ABG 93.4 % (95.0-100.0); PO2 ABG 75.5 mmHg (80.0-100.0); Total Hemoglobin 11.7 g/dL (12.0-18.0)
[2021-08-11 06:24] LABS: Carboxyhemoglobin 0.3 % THb (0-2.0); Device BIPAP; Fractional Inspired Oxygen 60 %; Methemoglobin ABG 0.3 %THb (0-1.5); Modified Allen's Test Pass; Oxyhemoglobin 92.9 % THb (90.0-100.0); PO2 FiO2 Ratio Arterial Blood 1.26 %; Reduced Hemoglobin 6.5 %THb (0-5.0); Site Drawn RIGHT RADIAL
[2021-08-11 06:25] LABS: Expiratory Pressure 6 cmH2O; Inspiratory Pressure 12 cmH2O
[2021-08-11 07:02] LABS: Basophils Percent Auto 0.8 % (0.2-1.2); Eosinophils Absolute Auto 0.2 K/mm3 (0-0.3); Hematocrit 36.6 % (37.0-47.0); Hemoglobin 10.8 g/dL (12.0-15.0); Immature Granulocyte Absolute 0.01 K/mm3 (0.00-0.031); Immature Granulocyte Percent A 0.3 % (0-0.5); Immature Platelet Fraction Pct 7.7 % (0.9-11.2); Lymphocytes Absolute Auto 0.98 K/mm3 (0.9-3.2); Mean Corpuscular HGB Conc 29.5 g/dl (32-36); Mean Corpuscular Hemoglobin 32.5 pg (26-34); Mean Corpuscular Volume 110.2 fl (80-100); Mean Platelet Volume 11.2 fl (7.4-10.4); Monocytes Absolute Auto 0.4 K/mm3 (0.1-0.6); Monocytes Percent Auto 11.7 % (2.6-8.5); Neutrophils Absolute Auto 2.2 K/mm3 (1.3-6.7); Neutrophils Percent Auto 57.2 % (45.5-73.1); Platelet Count Result 127 k/mm3 (150-375); Red Blood Count 3.32 M/mm3 (4.2-5.4); Red Cell Distribution Width 16.3 % (11.5-14.5); White Blood Count 3.8 K/mm3 (4.5-10.0)
[2021-08-11 07:19] LABS: Blood Urea Nitrogen 18 mg/dL (7-17); Calcium 8.5 mg/dL (8.4-10.2); Carbon Dioxide > 40 mmol/L (22-30); Chloride 85 mmol/L (98-107); Estimated CRCL calculation 62 ml/min; Estimated Glomerular Filt Rate > 60; Glucose 89 mg/dL (65-110); Sodium 139 mmol/L (137-145)
[2021-08-11 08:46] LABS: Hypochromasia 3+ (NORMAL); Polychromasia 1+ (NORMAL); Stomatocytes 2+ (NORMAL)
[2021-08-11] MEDS: PREGABALIN (*CRX) 50 MG CAPSULE 200 MG PO ×2 (10:11→17:13)
[2021-08-11] MEDS: POTASSIUM CHLORIDE 20 MEQ TABLET 40 MEQ PO ×2 (10:11→17:12)
[2021-08-11] MEDS: CHOLECALCIFEROL 1,000 UNITS TABLET 1000 UNITS PO (10:12)
[2021-08-11] MEDS: PANTOPRAZOLE 40 MG TABLET PO (10:12)
[2021-08-11] MEDS: DICYCLOMINE HCL 10 MG CAPSULE 20 MG PO ×2 (10:12→17:13)
[2021-08-11] MEDS: CALCIUM CARBONATE (OSCAL) 500 MG TABLET PO (10:13)
[2021-08-11] MEDS: FERROUS SULFATE 324 MG TABLET PO ×2 (10:13→17:13)
[2021-08-11] MEDS: carvediloL 3.125 MG TABLET PO ×2 (10:13→17:12)
[2021-08-11] MEDS: SERTRALINE HCL 25 MG TABLET PO (10:14)
[2021-08-11] MEDS: MAGNESIUM OXIDE 400 MG TABLET PO (10:14)
[2021-08-11] MEDS: SACUBITRIL/VALSARTAN 24-26 MG TABLET 1 TAB PO ×2 (10:14→20:29)
[2021-08-11] MEDS: PENTOXIFYLLINE 400 MG TABCR PO ×2 (10:14→17:13)
[2021-08-11 10:40] LABS: Alanine Aminotransferase 9 U/L (4-35); Albumin Level 3.4 g/dL (3.5-5.1); Alkaline Phosphatase 60 U/L (38-126); Aspartate Amino Transferase 21 U/L (14-36); Bilirubin,Total 0.5 mg/dL (0.2-1.3); CRP 1.5 mg/dL (<1.0); Lactate Dehydrogenase 651 U/L (313-618)
--- NOTE | 2021-08-11 12:08 | PM.PNPUL ---
Progress Note: A&P Assessment and Plan (1) Acute and chronic respiratory failure with hypercapnia: Code(s): J96.22 - Acute and chronic respiratory failure with hypercapnia Status: Chronic Assessment and Plan: 76-year-old female with history of morbid obesity, hypercapnic hypoxemic respiratory failure on a noninvasive ventilatory support at home presented with worsening hypercapnic failure, severe hypokalemia with metabolic alkalosis, hypoxemia. The patient's patient's metabolic alkalosis is was most likely related to diuretic use. The patient was treated with IV fluids overnight to correct contraction alkalosis, and oral KCL to correct hypokalemia. She also received magnesium orally. On today's blood gases there was greater hypercapnia with normal pH most likely related to inadequate minute ventilation she was getting from BiPAP. the patient was switched to AVAPS in an effort to increase the minute ventilation. Arterial blood gases are pending. Plan is as follows: I would continue with current noninvasive ventilatory support via AVAPS, discontinue IV normal saline, continue with KCl supplements orally, discontinue calcium carbonate as this may increase the serum bicarbonate, replace magnesium orally. No need to start patient on diuretic as yet. Avoid sedatives. Today chest x-ray was probably unchanged. (2) COPD (chronic obstructive pulmonary disease): Qualifiers: COPD type: unspecified COPD Qualified Code(s): J44.9 - Chronic obstructive pulmonary disease, unspecified Code(s): J44.9 - Chronic obstructive pulmonary disease, unspecified Status: Chronic (3) Atrial fibrillation: Qualifiers: Atrial fibrillation type: unspecified Qualified Code(s): I48.91 - Unspecified atrial fibrillation Code(s): I48.91 - Unspecified atrial fibrillation Status: Chronic (4) Hypokalemia: Code(s): E87.6 - Hypokalemia Status: Acute (5) Morbid obesity: Code(s): E66.01 - Morbid (severe) obesity due to excess calories Status: Acute (6) Hypomagnesemia: Code(s): E83.42 - Hypomagnesemia Status: Acute (7) Metabolic alkalosis: Code(s): E87.3 - Alkalosis Status: Acute (8) Hx of cancer of lung: Code(s): Z85.118 - Personal history of other malignant neoplasm of bronchus and lung Status: Acute (9) Disorder of diaphragm: Code(s): J98.6 - Disorders of diaphragm Status: Acute Subjective Date/time seen: 08/11/21 12:08 patient was switched to BiPAP support 07/24 from home ventilator. She has no new respiratory complaints. Arterial blood gases earlier today showed worsening hypercapnia and a pH of 7.35. O2 saturation was over 90% on supplemental oxygen. Following these blood gases the patient was placed on AVAPS with tidal volume 500, EPAP increased to 8. Arterial blood gases are pending on the new settings. Review of Systems Review of Systems: All systems reviewed & are unremarkable except as noted in HPI and below (H and P and below.) Exam Narrative: GENERAL APPEARANCE: Well developed, well nourished, alert and cooperative, and appears to be in in mild respiratory distress while on noninvasive ventilatory support via AVAPS SKIN: Inspection of the skin reveals no rashes, ulcerations or petechiae. HEENT: Sclerae anicteric and conjunctivae pink and moist. Extraocular movements were intact and pupils were equal, round, and reactive. NECK: Supple. There was no thyroid enlargement, and no tenderness, or masses were felt. LUNGS: Auscultation of the lungs revealed distant breath sounds no wheezing CARDIAC: There was a regular rate and rhythm without any murmurs, gallops, rubs. ABDOMEN: Soft and nontender with normal bowel sounds. There was no organomegaly. LYMPH NODES: No lymphadenopathy was appreciated in the neck. NEUROLOGIC: Alert and oriented x 3. Normal affect. Objective Data Vital Signs Vital Signs: Vit
[2021-08-11 13:44] LABS: pH ABG 7.389 (7.350-7.450)
[2021-08-11 13:45] LABS: HCO3 ABG 55.8 mEq/l (22.0-26.0); PCO2 ABG 94.5 mmHg (35.0-45.0); PO2 ABG 72.1 mmHg (80.0-100.0)
[2021-08-11 13:46] LABS: Alveolar/Arterial O2 Gradient 251.8 mmHg; Base Excess ABG 25.7 mEq/l (+/-2.0); Carboxyhemoglobin 0.3 % THb (0-2.0); Methemoglobin ABG 0.4 %THb (0-1.5); Oxygen Content ABG 15.3 %vol (16.0-22.0); Oxygen Saturation ABG 93.1 % (95.0-100.0); Oxyhemoglobin 92.5 % THb (90.0-100.0); Total Hemoglobin 11.7 g/dL (12.0-18.0)
[2021-08-11 13:47] LABS: Fractional Inspired Oxygen 60 %; Site Drawn RIGHT BRACHIAL
[2021-08-11 13:49] LABS: Device NON-INVASIVE VENT; Non-Invasive Vent Rate 16 /MIN
[2021-08-11 13:50] LABS: Non-Invasive Expiratory Pressure 8 CMH2O
--- NOTE | 2021-08-11 14:57 | PM.IMPN ---
Progress Note: A&P Assessment and Plan (1) Hypokalemia: Code(s): E87.6 - Hypokalemia Status: Acute Assessment and Plan: Patient is a 76-year-old woman with a history of chronic respiratory failure on 4 L of oxygen via nasal cannula, COPD, history of right lobectomy, systolic congestive heart failure, hypothyroidism, atrial fibrillation on Xarelto, who presented to the emergency room via EMS from living facility for respiratory distress and blood in the Khan catheter per EMS report. 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 She states around 0130 two man who works at the facility walked in, told her to get dressed and she was going to the hospital. Patient denies any change to her breathing or her urine output from her chronic Khan catheter. Initial vitals showed blood pressure 135/74, heart rate 80, afebrile, normal oxygenation 97% on 4 L. initial labs showed normal white blood cell count 6.0, slight anemia with a hemoglobin of 11.4 which appears to be at her baseline, thrombocytopenia at 135, normal differential, hypokalemia at 2.7, elevated serum bicarb greater than 40, creatinine 1.0, BUN 19, normal LFTs, normal troponin, BNP elevated at 2540. Chest x-ray showed Worsened airspace opacities in the mid and lower lung zones, consistent with pulmonary edema versus pneumonia. Chronic marked elevation of right hemidiaphragm. Patient was admitted into the hospital for further workup and evaluation for her hypokalemia. Patient was given potassium in the emergency room and recheck potassium this morning showed she was still severely hypokalemic at 2.6 and magnesium was low at 1.4. These were replenished and her potassium today is 3.0, magnesium normal at 2.0. She will be given 40 mEq of potassium p.o.. Will also schedule for a 2nd 40 mEq of potassium to be given this evening. Will recheck her potassium and magnesium in the morning (2) Acute and chronic respiratory failure with hypercapnia: Code(s): J96.22 - Acute and chronic respiratory failure with hypercapnia Status: Chronic Assessment and Plan: Nurse called me 08/10/21 about the patient having decreased responsiveness. She tried to give her potassium pills but could not wake her up. I looked to the patient's medication history and she has not been given any sedating medication I ordered a stat ABG which showed normal pH but her pCO2 was 89, she was hypoxic at 83% on 5 L via nasal cannula I talked to the anesthesia technician about the patient who recommends further workup to rule out stroke versus infection as the cause since her pH is normal. Patient CT head showed no acute intracranial abnormality. Stat chest x-ray from today showed cardiomegaly with mild interstitial edema Venous Dopplers showed no DVT Talked to the anesthesia technician about the patient again and he believes she has a mixed acid-base abnormality with metabolic alkalosis due to her hypokalemia and acute respiratory failure with hypoxemia and hypercapnia. He believes she has severe contraction alkalosis due to decreased blood volume. We had started the patient on IV fluids overnight which corrected her contraction alkalosis. Will discontinue IV fluids at this time. Today's ABG showed higher elevation of hypercapnia with a normal pH patient was switched to AVAPS to increase the minute ventilation. Pulmonology recommends discontinuing IV fluids, continue potassium supplementation, discontinue calcium carbonate, continue magnesium monitoring and supplementation He would like to keep her on the BiPAP overnight and further monitor Repeating a CBC, BMP and chest x-ray in the morning. Will continue monitoring her respiratory status and recheck everything in the morning. (3) Unresponsive: Code(s): R41.89 - Other symptoms and signs involving cognitive functions and awareness
[2021-08-11] MEDS: RIVAROXABAN 20 MG TABLET PO (17:13)
[2021-08-11] MEDS: SIMVASTATIN 20 MG TABLET PO (20:29)
[2021-08-12] VITALS (18 sets, daily range): BP systolic 104–154; BP diastolic 58–92; PULSE 70–102; RESP 14–26; TEMP 36.1–37; O2SAT 90–100
[2021-08-12 05:08] LABS: Hematocrit 37.2 % (37.0-47.0); Hemoglobin 10.7 g/dL (12.0-15.0); Immature Platelet Fraction Pct 8.2 % (0.9-11.2); Mean Corpuscular HGB Conc 28.8 g/dl (32-36); Mean Corpuscular Hemoglobin 31.8 pg (26-34); Mean Corpuscular Volume 110.7 fl (80-100); Mean Platelet Volume 11.2 fl (7.4-10.4); Platelet Count Result 128 k/mm3 (150-375); Red Blood Count 3.36 M/mm3 (4.2-5.4); Red Cell Distribution Width 16.3 % (11.5-14.5); White Blood Count 4.5 K/mm3 (4.5-10.0)
[2021-08-12] MEDS: LEVOTHYROXINE SODIUM 125 MCG TABLET PO (05:31)
[2021-08-12 05:40] LABS: Blood Urea Nitrogen 28 mg/dL (7-17); CRP 1.3 mg/dL (<1.0); Calcium 8.2 mg/dL (8.4-10.2); Carbon Dioxide > 40 mmol/L (22-30); Chloride 88 mmol/L (98-107); Estimated CRCL calculation 44 ml/min; Estimated Glomerular Filt Rate 40; Glucose 89 mg/dL (65-110); Potassium 3.7 mmol/L (3.4-5.0); Sodium 141 mmol/L (137-145)
[2021-08-12 06:03] LABS: Lactate Dehydrogenase 411 U/L (313-618)
[2021-08-12] MEDS: CHOLECALCIFEROL 1,000 UNITS TABLET 1000 UNITS PO (09:45)
[2021-08-12] MEDS: PREGABALIN (*CRX) 50 MG CAPSULE 200 MG PO ×2 (09:45→17:35)
[2021-08-12] MEDS: carvediloL 3.125 MG TABLET PO ×2 (09:45→17:37)
[2021-08-12] MEDS: PENTOXIFYLLINE 400 MG TABCR PO ×2 (09:45→17:38)
[2021-08-12] MEDS: SACUBITRIL/VALSARTAN 24-26 MG TABLET 1 TAB PO ×2 (09:46→21:16)
[2021-08-12] MEDS: FERROUS SULFATE 324 MG TABLET PO ×2 (09:46→17:38)
[2021-08-12] MEDS: MAGNESIUM OXIDE 400 MG TABLET PO (09:46)
[2021-08-12] MEDS: DICYCLOMINE HCL 10 MG CAPSULE 20 MG PO ×2 (09:46→17:37)
[2021-08-12] MEDS: PANTOPRAZOLE 40 MG TABLET PO (09:46)
[2021-08-12] MEDS: SERTRALINE HCL 25 MG TABLET PO (09:46)
--- NOTE | 2021-08-12 10:30 | PM.IMPN ---
Progress Note: A&P Assessment and Plan (1) Hypokalemia: Code(s): E87.6 - Hypokalemia Status: Acute Assessment and Plan: Patient is a 76-year-old woman with a history of chronic respiratory failure on 4 L of oxygen via nasal cannula, COPD, history of right lobectomy, systolic congestive heart failure, hypothyroidism, atrial fibrillation on Xarelto, who presented to the emergency room via EMS from living facility for respiratory distress and blood in the Khan catheter per EMS report. 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 She states around 0130 two man who works at the facility walked in, told her to get dressed and she was going to the hospital. Patient denies any change to her breathing or her urine output from her chronic Khan catheter. Initial vitals showed blood pressure 135/74, heart rate 80, afebrile, normal oxygenation 97% on 4 L. initial labs showed normal white blood cell count 6.0, slight anemia with a hemoglobin of 11.4 which appears to be at her baseline, thrombocytopenia at 135, normal differential, hypokalemia at 2.7, elevated serum bicarb greater than 40, creatinine 1.0, BUN 19, normal LFTs, normal troponin, BNP elevated at 2540. Chest x-ray showed Worsened airspace opacities in the mid and lower lung zones, consistent with pulmonary edema versus pneumonia. Chronic marked elevation of right hemidiaphragm. Patient was admitted into the hospital for further workup and evaluation for her hypokalemia. Patient was given potassium in the emergency room and recheck potassium this morning showed she was still severely hypokalemic at 2.6 and magnesium was low at 1.4. Potassium today is 3.7, magnesium normal at 2.0. Continue monitoring electrolytes. Will recheck her potassium and magnesium in the morning (2) Acute and chronic respiratory failure with hypercapnia: Code(s): J96.22 - Acute and chronic respiratory failure with hypercapnia Status: Chronic Assessment and Plan: Nurse called me 08/10/21 about the patient having decreased responsiveness. She tried to give her potassium pills but could not wake her up. I looked to the patient's medication history and she has not been given any sedating medication I ordered a stat ABG 08/10 which showed normal pH but her pCO2 was 89, she was hypoxic at 83% on 5 L via nasal cannula I talked to the varying exceptionalities teacher about the patient who recommends further workup to rule out stroke versus infection as the cause since her pH is normal. Patient CT head showed no acute intracranial abnormality. Stat chest x-ray from today showed cardiomegaly with mild interstitial edema. Venous Dopplers showed no DVT Talked to the varying exceptionalities teacher about the patient again and he believes she has a mixed acid-base abnormality with metabolic alkalosis due to her hypokalemia and acute respiratory failure with hypoxemia and hypercapnia. He believes she has severe contraction alkalosis due to decreased blood volume. We had started the patient on IV fluids overnight which corrected her contraction alkalosis. Will discontinue IV fluids 08/11 08/11: Patient still had hypercapnia on ABG so BiPAP was switched to AVAPS to increase the minute ventilation. 08/12: Patient doing well this morning, awake alert eating breakfast. Talked to the varying exceptionalities teacher, Dr. Lim, who recommends keeping her off the BiPAP and getting an ABG at this time rest to see what her CO2 level is Will continue monitoring her respiratory status and recheck everything in the morning. Appreciate pulmonology is input. (3) Elevated serum creatinine: Code(s): R79.89 - Other specified abnormal findings of blood chemistry Status: Acute Assessment and Plan: Patient's creatinine elevated to 1.3 this morning. Could be secondary to her being on the BiPAP constantly for the last 2 days and not be
[2021-08-12] MEDS: FLUTICASONE/UMECLIDIN/VILANTER 100-62.5-25 MCG ELLIPTA 1 PUFF INHALATION (11:27)
[2021-08-12 13:43] LABS: PCO2 ABG 72.2 mmHg (35.0-45.0)
[2021-08-12 13:44] LABS: HCO3 ABG 49.2 mEq/l (22.0-26.0); PO2 ABG 69.2 mmHg (80.0-100.0)
[2021-08-12 13:45] LABS: Base Excess ABG 21.6 mEq/l (+/-2.0); Oxygen Content ABG 14.5 %vol (16.0-22.0); Oxygen Saturation ABG 93.8 % (95.0-100.0)
[2021-08-12 13:46] LABS: Carboxyhemoglobin 0.3 % THb (0-2.0); Methemoglobin ABG 0.2 %THb (0-1.5); Oxyhemoglobin 93.3 % THb (90.0-100.0); PO2 FiO2 Ratio Arterial Blood 2.16 %; Reduced Hemoglobin 6.2 %THb (0-5.0)
[2021-08-12 13:47] LABS: Alveolar/Arterial O2 Gradient 74.5 mmHg; Device NASAL CANNULA; Fractional Inspired Oxygen 36 %; Site Drawn RIGHT BRACHIAL
--- NOTE | 2021-08-12 14:41 | PM.PNPUL ---
Progress Note: A&P Assessment and Plan (1) Acute and chronic respiratory failure with hypercapnia: Code(s): J96.22 - Acute and chronic respiratory failure with hypercapnia Status: Chronic Assessment and Plan: 76-year-old female with history of morbid obesity, hypercapnic hypoxemic respiratory failure on a noninvasive ventilatory support at home presented with worsening hypercapnic failure, severe hypokalemia with metabolic alkalosis, hypoxemia. The patient's patient's metabolic alkalosis is was most likely related to diuretic use. The patient was treated with IV fluids to correct contraction alkalosis, and oral KCL to correct hypokalemia. She also received magnesium orally. Improved ABG shows decreased pCO2, decreasing hypercapnia, improved ventilation on AVAPS. Will continue AVAPS with sleep and if needed in the daytime; discontinue IV normal saline, continue with KCl supplements orally, monitor and replace magnesium orally. No need to start patient on diuretic as yet. Avoid sedatives. Julianna Ovalle's note shows that she was not on sedatives. CXR today was unchanged. She needs to use PAP with all episodes of sleep, here in the hospital and at the assisted living facility. Patient is taking an antidepressant, good idea. She seems as if she has thrown in the towel. Not sure how much drive she has to live. Son just , but the patient does not expect any grandchildren. Ferritin is low; although it is on the normal range, it is low and she probably needs iron. She has pancytopenia. I will stay in my taylor, let Vasquez NUNEZ address all this. (2) COPD (chronic obstructive pulmonary disease): Qualifiers: COPD type: unspecified COPD Qualified Code(s): J44.9 - Chronic obstructive pulmonary disease, unspecified Code(s): J44.9 - Chronic obstructive pulmonary disease, unspecified Status: Chronic Assessment and Plan: (3) Atrial fibrillation: Qualifiers: Atrial fibrillation type: unspecified Qualified Code(s): I48.91 - Unspecified atrial fibrillation Code(s): I48.91 - Unspecified atrial fibrillation Status: Chronic Assessment and Plan: (4) Hypokalemia: Code(s): E87.6 - Hypokalemia Status: Acute Assessment and Plan: repleted (5) Morbid obesity: Code(s): E66.01 - Morbid (severe) obesity due to excess calories Status: Acute Assessment and Plan: BMI is 41.5; (6) Hypomagnesemia: Code(s): E83.42 - Hypomagnesemia Status: Acute Assessment and Plan: replated (7) Metabolic alkalosis: Code(s): E87.3 - Alkalosis Status: Acute Assessment and Plan: resolving (8) Hx of cancer of lung: Code(s): Z85.118 - Personal history of other malignant neoplasm of bronchus and lung Status: Acute (9) Disorder of diaphragm: Code(s): J98.6 - Disorders of diaphragm Status: Acute Assessment and Plan: .l elevated R diaphragm Subjective Date/time seen: 08/12/21 14:41 Valorie Harris is a 76 yo female with acute on chronic hypercapnic hypoxemic respiratory failure, had mixed acid base disorder with profound hypokalemia and volume contraction. CXR today shows little change compared to yesterday. ABG is much better; on 3 L/min after breakfast, pH 7.45/pCO2 72.2/pO2 69.2/HCO3 49.2/saturation 93.8%. pCO2 is lower, had been in the 80-90 range. She is better and
[2021-08-12] MEDS: RIVAROXABAN 20 MG TABLET PO (17:38)
[2021-08-12] MEDS: SIMVASTATIN 20 MG TABLET PO (21:16)
[2021-08-13] VITALS (18 sets, daily range): BP systolic 95–118; BP diastolic 48–99; PULSE 66–90; RESP 12–21; TEMP 36.2–37.1; O2SAT 94–100
[2021-08-13 04:47] LABS: Hematocrit 33.7 % (37.0-47.0); Immature Platelet Fraction Pct 7.6 % (0.9-11.2); Mean Corpuscular HGB Conc 29.7 g/dl (32-36); Mean Corpuscular Hemoglobin 32.1 pg (26-34); Mean Platelet Volume 11.3 fl (7.4-10.4); Platelet Count Result 112 k/mm3 (150-375); Red Blood Count 3.12 M/mm3 (4.2-5.4); White Blood Count 4.9 K/mm3 (4.5-10.0)
[2021-08-13 05:06] LABS: Blood Urea Nitrogen 28 mg/dL (7-17); Calcium 7.8 mg/dL (8.4-10.2); Carbon Dioxide > 40 mmol/L (22-30); Chloride 91 mmol/L (98-107); Estimated CRCL calculation 52 ml/min; Estimated Glomerular Filt Rate 49; Glucose 96 mg/dL (65-110); Potassium 3.6 mmol/L (3.4-5.0); Sodium 139 mmol/L (137-145)
[2021-08-13] MEDS: LEVOTHYROXINE SODIUM 125 MCG TABLET PO (06:25)
[2021-08-13] MEDS: CHOLECALCIFEROL 1,000 UNITS TABLET 1000 UNITS PO (08:34)
[2021-08-13] MEDS: DICYCLOMINE HCL 10 MG CAPSULE 20 MG PO ×2 (08:35→17:37)
[2021-08-13] MEDS: FERROUS SULFATE 324 MG TABLET PO ×2 (08:35→17:37)
[2021-08-13] MEDS: carvediloL 3.125 MG TABLET PO ×2 (08:35→17:37)
[2021-08-13] MEDS: SERTRALINE HCL 25 MG TABLET PO (08:36)
[2021-08-13] MEDS: PREGABALIN (*CRX) 50 MG CAPSULE 200 MG PO ×2 (08:36→17:35)
[2021-08-13] MEDS: PANTOPRAZOLE 40 MG TABLET PO (08:38)
[2021-08-13] MEDS: MAGNESIUM OXIDE 400 MG TABLET PO (08:38)
[2021-08-13] MEDS: PENTOXIFYLLINE 400 MG TABCR PO ×2 (08:38→17:37)
[2021-08-13] MEDS: SACUBITRIL/VALSARTAN 24-26 MG TABLET 1 TAB PO ×2 (08:38→21:41)
[2021-08-13] MEDS: ACETAMINOPHEN 500 MG TABLET PO (11:15)
--- NOTE | 2021-08-13 12:37 | PM.IMPN ---
Progress Note: A&P Assessment and Plan (1) Hypokalemia: Code(s): E87.6 - Hypokalemia Status: Acute Assessment and Plan: Patient is a 76-year-old woman with a history of chronic respiratory failure on 4 L of oxygen via nasal cannula, COPD, history of right lobectomy, systolic congestive heart failure, hypothyroidism, atrial fibrillation on Xarelto, who presented to the emergency room via EMS from living facility for respiratory distress and blood in the Khan catheter per EMS report. 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 She states around 0130 two man who works at the facility walked in, told her to get dressed and she was going to the hospital. Patient denies any change to her breathing or her urine output from her chronic Khan catheter. Initial vitals showed blood pressure 135/74, heart rate 80, afebrile, normal oxygenation 97% on 4 L. initial labs showed normal white blood cell count 6.0, slight anemia with a hemoglobin of 11.4 which appears to be at her baseline, thrombocytopenia at 135, normal differential, hypokalemia at 2.7, elevated serum bicarb greater than 40, creatinine 1.0, BUN 19, normal LFTs, normal troponin, BNP elevated at 2540. Chest x-ray showed Worsened airspace opacities in the mid and lower lung zones, consistent with pulmonary edema versus pneumonia. Chronic marked elevation of right hemidiaphragm. Patient was admitted into the hospital for further workup and evaluation for her hypokalemia. Patient was given potassium in the emergency room and recheck potassium this morning showed she was still severely hypokalemic at 2.6 and magnesium was low at 1.4. Potassium today is 3.6, magnesium normal at 2.0. Continue monitoring electrolytes. Will recheck her potassium and magnesium in the morning (2) Acute and chronic respiratory failure with hypercapnia: Code(s): J96.22 - Acute and chronic respiratory failure with hypercapnia Status: Chronic Assessment and Plan: Nurse called me 08/10/21 about the patient having decreased responsiveness. She tried to give her potassium pills but could not wake her up. I looked to the patient's medication history and she has not been given any sedating medication I ordered a stat ABG 08/10 which showed normal pH but her pCO2 was 89, she was hypoxic at 83% on 5 L via nasal cannula I talked to the drop wire hanger about the patient who recommends further workup to rule out stroke versus infection as the cause since her pH is normal. Patient CT head showed no acute intracranial abnormality. Stat chest x-ray from today showed cardiomegaly with mild interstitial edema. Venous Dopplers showed no DVT Talked to the drop wire hanger about the patient again and he believes she has a mixed acid-base abnormality with metabolic alkalosis due to her hypokalemia and acute respiratory failure with hypoxemia and hypercapnia. He believes she has severe contraction alkalosis due to decreased blood volume. We had started the patient on IV fluids overnight which corrected her contraction alkalosis. Will discontinue IV fluids 08/11 08/11: Patient still had hypercapnia on ABG so BiPAP was switched to AVAPS to increase the minute ventilation. 08/12: Patient doing well this morning, awake alert eating breakfast. Talked to the drop wire hanger, Dr. Lim, who recommends keeping her off the BiPAP and getting an ABG at this time rest to see what her CO2 level is 08/13: Patient feeling well at this time back to her baseline. Pulmonology evaluated the patient yesterday and recommends continuing BiPAP with all episodes of sleep at the hospital and at her living facility. Will continue monitoring her respiratory status and recheck everything in the morning. Appreciate pulmonology is input. (3) Elevated serum creatinine: Code(s): R79.89 - Other specified abnormal fin
[2021-08-13 14:16] LABS: Iron 41 ug/dL (37-170)
[2021-08-13 14:26] LABS: Percent Iron Saturation 11 % (20-50)
[2021-08-13 15:07] LABS: Folic Acid 6.3 ng/mL (2.76->20)
[2021-08-13] MEDS: RIVAROXABAN 20 MG TABLET PO (17:37)
--- NOTE | 2021-08-13 18:47 | ADMGEN ---
This patient, Valorie Harris, was transferred to Medical Room 340-01. Patient/family oriented to hospital policies and general routines including ID bracelet, bed and alarms, visiting hours, pain management, procedures, bathroom and other care routines, personal items, smoking policy, room service/diet, and visiting hours. Information on how to activate the Rapid Response Team has been discussed. Patient/Family are encouraged to report perceived risks to care and to ask questions if they do not understand what they are told or what they should do.
[2021-08-13] MEDS: SIMVASTATIN 20 MG TABLET PO (21:41)
[2021-08-14] VITALS (9 sets, daily range): BP systolic 107–121; BP diastolic 44–70; PULSE 73–99; RESP 12–18; TEMP 36.2–37.1; O2SAT 96–98
[2021-08-14 06:24] LABS: Hematocrit 34.3 % (37.0-47.0); Immature Platelet Fraction Pct 8.7 % (0.9-11.2); Mean Corpuscular HGB Conc 29.2 g/dl (32-36); Mean Corpuscular Hemoglobin 32.1 pg (26-34); Mean Corpuscular Volume 109.9 fl (80-100); Mean Platelet Volume 11.5 fl (7.4-10.4); Platelet Count Result 106 k/mm3 (150-375); Red Blood Count 3.12 M/mm3 (4.2-5.4); Red Cell Distribution Width 16.2 % (11.5-14.5)
[2021-08-14 06:38] LABS: Blood Urea Nitrogen 26 mg/dL (7-17); Calcium 7.7 mg/dL (8.4-10.2); Carbon Dioxide > 40 mmol/L (22-30); Chloride 91 mmol/L (98-107); Estimated CRCL calculation 57 ml/min; Estimated Glomerular Filt Rate 54; Glucose 86 mg/dL (65-110); Potassium 3.7 mmol/L (3.4-5.0); Sodium 136 mmol/L (137-145)
[2021-08-14] MEDS: LEVOTHYROXINE SODIUM 125 MCG TABLET PO (06:44)
[2021-08-14] MEDS: PENTOXIFYLLINE 400 MG TABCR PO ×2 (08:25→17:33)
[2021-08-14] MEDS: CHOLECALCIFEROL 1,000 UNITS TABLET 1000 UNITS PO (08:25)
[2021-08-14] MEDS: carvediloL 3.125 MG TABLET PO ×2 (08:25→17:33)
[2021-08-14] MEDS: FERROUS SULFATE 324 MG TABLET PO ×2 (08:25→17:33)
[2021-08-14] MEDS: DICYCLOMINE HCL 10 MG CAPSULE 20 MG PO ×2 (08:26→17:32)
[2021-08-14] MEDS: SERTRALINE HCL 25 MG TABLET PO (08:26)
[2021-08-14] MEDS: SACUBITRIL/VALSARTAN 24-26 MG TABLET 1 TAB PO ×2 (08:27→20:13)
[2021-08-14] MEDS: MAGNESIUM OXIDE 400 MG TABLET PO (08:27)
[2021-08-14] MEDS: PANTOPRAZOLE 40 MG TABLET PO (08:27)
[2021-08-14] MEDS: PREGABALIN (*CRX) 50 MG CAPSULE 200 MG PO ×2 (08:29→17:32)
[2021-08-14 08:32] LABS: Glucose Point of Care 119 mg/dl (65-105)
--- NOTE | 2021-08-14 10:10 | PM.PNPUL ---
Progress Note: A&P Assessment and Plan (1) Acute and chronic respiratory failure with hypercapnia: Code(s): J96.22 - Acute and chronic respiratory failure with hypercapnia Status: Chronic Assessment and Plan: 76-year-old female with history of morbid obesity, hypercapnic hypoxemic respiratory failure on a noninvasive ventilatory support at home presented with worsening hypercapnic failure, severe hypokalemia with metabolic alkalosis, hypoxemia. The patient's patient's metabolic alkalosis is was most likely related to diuretic use. The patient was treated with IV fluids overnight to correct contraction alkalosis, and oral KCL to correct hypokalemia. She also received magnesium orally. patient has hypercapnic respiratory failure has significantly improved as has her mental status. Currently she is receiving just noninvasive ventilatory support at night while remaining on nasal cannula during the day. The patient prior to coming to the hospital she had been on trilogy ventilator at home with rate 14, tidal volume 400, EPAP minimum 5, EPAP maximum 5, pressure support minimum 7, pressors support maximum 25, maximum pressure 30 along with 4 L oxygen bled in. I would switch patient back to her own trilogy ventilation using the new settings. Tidal volume, 500 EPAP minimum 4, EPAP maximum 14 pressure support minimum 12 pressure support maximum 30 cm, maximum pressure 30, and rate set to auto. On these settings I would repeat apnea alarm tonight and blood gases in a.m.. The case was discussed with the hospitalist. With (2) COPD (chronic obstructive pulmonary disease): Qualifiers: COPD type: unspecified COPD Qualified Code(s): J44.9 - Chronic obstructive pulmonary disease, unspecified Code(s): J44.9 - Chronic obstructive pulmonary disease, unspecified Status: Chronic (3) Atrial fibrillation: Qualifiers: Atrial fibrillation type: unspecified Qualified Code(s): I48.91 - Unspecified atrial fibrillation Code(s): I48.91 - Unspecified atrial fibrillation Status: Chronic (4) Hypokalemia: Code(s): E87.6 - Hypokalemia Status: Acute (5) Morbid obesity: Code(s): E66.01 - Morbid (severe) obesity due to excess calories Status: Acute (6) Hypomagnesemia: Code(s): E83.42 - Hypomagnesemia Status: Acute (7) Metabolic alkalosis: Code(s): E87.3 - Alkalosis Status: Acute (8) Hx of cancer of lung: Code(s): Z85.118 - Personal history of other malignant neoplasm of bronchus and lung Status: Acute (9) Disorder of diaphragm: Code(s): J98.6 - Disorders of diaphragm Status: Acute Subjective Date/time seen: 08/14/21 10:10 Patient doing better. Using BiPAP support at night but not during the day. Currently on supplemental oxygen while still in bed. Appears fully awake and oriented no new respiratory complaints. Review of Systems Review of Systems: All systems reviewed & are unremarkable except as noted in HPI and below Exam Narrative: GENERAL APPEARANCE: Well developed, well nourished, alert and cooperative, and appears to be in in mild respiratory distress while on on supplemental oxygen via nasal cannula NECK: Supple. There was no thyroid enlargement, and no tenderness, or masses were felt. LUNGS: Auscultation of the lungs revealed distant breath sounds no wheezing CARDIAC: There was a regular rate and rhythm without any murmurs, gallops, rubs. ABDOMEN: Soft and nontender with normal bowel sounds. There was no organomegaly. LYMPH NODES: No lymphadenopathy was appreciated in the neck. NEUROLOGIC: Alert and oriented x 3. Normal affect. Objective Data Vital Signs Vital Signs: Vital Signs - 24 hr 08/13/21 11:32 08/13/21 12:00 08/13/21 14:00 Temperature 37.1 C Pulse Rate 82 76 Respiratory Rate 12 Blood Pressure 118/99 H Pulse Oximetry 95 100 08/13/21 16:00 08/13/21 17:20 08/13/21
[2021-08-14] MEDS: FLUTICASONE/UMECLIDIN/VILANTER 100-62.5-25 MCG ELLIPTA 1 PUFF INHALATION (10:31)
--- NOTE | 2021-08-14 10:36 | PM.IMPN ---
Progress Note: A&P Assessment and Plan (1) Hypokalemia: Code(s): E87.6 - Hypokalemia Status: Acute Assessment and Plan: Patient is a 76-year-old woman with a history of chronic respiratory failure on 4 L of oxygen via nasal cannula, COPD, history of right lobectomy, systolic congestive heart failure, hypothyroidism, atrial fibrillation on Xarelto, who presented to the emergency room via EMS from living facility for respiratory distress and blood in the Khan catheter per EMS report. 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 She states around 0130 two man who works at the facility walked in, told her to get dressed and she was going to the hospital. Patient denies any change to her breathing or her urine output from her chronic Khan catheter. Initial vitals showed blood pressure 135/74, heart rate 80, afebrile, normal oxygenation 97% on 4 L. initial labs showed normal white blood cell count 6.0, slight anemia with a hemoglobin of 11.4 which appears to be at her baseline, thrombocytopenia at 135, normal differential, hypokalemia at 2.7, elevated serum bicarb greater than 40, creatinine 1.0, BUN 19, normal LFTs, normal troponin, BNP elevated at 2540. Chest x-ray showed Worsened airspace opacities in the mid and lower lung zones, consistent with pulmonary edema versus pneumonia. Chronic marked elevation of right hemidiaphragm. Patient was admitted into the hospital for further workup and evaluation for her hypokalemia. Patient was given potassium in the emergency room and recheck potassium this morning showed she was still severely hypokalemic at 2.6 and magnesium was low at 1.4. Potassium today is 3.7, magnesium normal at 2.0. Will give Potassium 40 mEq for low normal K and heel spasming. See if it helps Continue monitoring electrolytes. Will recheck her potassium and magnesium in the morning (2) Acute and chronic respiratory failure with hypercapnia: Code(s): J96.22 - Acute and chronic respiratory failure with hypercapnia Status: Chronic Assessment and Plan: Nurse called me 08/10/21 about the patient having decreased responsiveness. She tried to give her potassium pills but could not wake her up. I looked to the patient's medication history and she has not been given any sedating medication I ordered a stat ABG 08/10 which showed normal pH but her pCO2 was 89, she was hypoxic at 83% on 5 L via nasal cannula I talked to the child nurse about the patient who recommends further workup to rule out stroke versus infection as the cause since her pH is normal. Patient CT head showed no acute intracranial abnormality. Stat chest x-ray from today showed cardiomegaly with mild interstitial edema. Venous Dopplers showed no DVT Talked to the child nurse about the patient again and he believes she has a mixed acid-base abnormality with metabolic alkalosis due to her hypokalemia and acute respiratory failure with hypoxemia and hypercapnia. He believes she has severe contraction alkalosis due to decreased blood volume. We had started the patient on IV fluids overnight which corrected her contraction alkalosis. Will discontinue IV fluids 08/11 08/11: Patient still had hypercapnia on ABG so BiPAP was switched to AVAPS to increase the minute ventilation. 08/12: Patient doing well this morning, awake alert eating breakfast. Talked to the child nurse, Dr. Lim, who recommends keeping her off the BiPAP and getting an ABG at this time rest to see what her CO2 level is 08/13: Patient feeling well at this time back to her baseline. Pulmonology evaluated the patient yesterday and recommends continuing BiPAP with all episodes of sleep at the hospital and at her living facility. 08/14: As per Dr. Aquino Note from today: Tonight, place the patient back on her own trilogy ventilation using the new settings: Tidal volume, 500 EPAP minimum 4, EPAP maxi
[2021-08-14] MEDS: POTASSIUM CHLORIDE 20 MEQ TABLET 40 MEQ PO (12:22)
[2021-08-14] MEDS: RIVAROXABAN 20 MG TABLET PO (17:33)
[2021-08-14] MEDS: SIMVASTATIN 20 MG TABLET PO (20:13)
--- NOTE | 2021-08-14 22:18 | PCRCNOTE ---
apnea study to be done on pt home trilogy. pt did not bring home trilogy in. therapist will not do study until pt brings home trilogy in.
[2021-08-15] VITALS (11 sets, daily range): BP systolic 97–115; BP diastolic 48–66; PULSE 65–83; RESP 16–22; TEMP 35.7–36.6; O2SAT 95–99
[2021-08-15] MEDS: LEVOTHYROXINE SODIUM 125 MCG TABLET PO (06:04)
[2021-08-15 06:30] LABS: Hematocrit 37.9 % (37.0-47.0); Hemoglobin 11.1 g/dL (12.0-15.0); Mean Corpuscular HGB Conc 29.3 g/dl (32-36); Mean Corpuscular Hemoglobin 32.5 pg (26-34); Mean Corpuscular Volume 110.8 fl (80-100); Mean Platelet Volume 11.6 fl (7.4-10.4); Platelet Count Result 118 k/mm3 (150-375); Red Blood Count 3.42 M/mm3 (4.2-5.4); Red Cell Distribution Width 15.9 % (11.5-14.5); White Blood Count 3.9 K/mm3 (4.5-10.0)
[2021-08-15 06:41] LABS: Blood Urea Nitrogen 25 mg/dL (7-17); Calcium 8.2 mg/dL (8.4-10.2); Carbon Dioxide > 40 mmol/L (22-30); Chloride 94 mmol/L (98-107); Estimated CRCL calculation 57 ml/min; Estimated Glomerular Filt Rate 54; Glucose 96 mg/dL (65-110); Potassium 4.6 mmol/L (3.4-5.0); Sodium 142 mmol/L (137-145)
[2021-08-15] MEDS: FLUTICASONE/UMECLIDIN/VILANTER 100-62.5-25 MCG ELLIPTA 1 PUFF INHALATION (07:41)
--- NOTE | 2021-08-15 09:28 | PM.IMPN ---
Progress Note: A&P Assessment and Plan (1) Hypokalemia: Code(s): E87.6 - Hypokalemia Status: Acute Assessment and Plan: hypothyroidism, hypokalemia at 2.7, elevated serum bicarb greater than 40, creatinine 1.0, BUN 19, normal LFTs, BNP elevated at 2540. Patient was admitted into the hospital for further evaluation for her hypokalemia. Likley due to her Lasix use at home. K replenished daily, until today. Got 40 meq KCL yesterday, K level 4.6 today Continue monitoring electrolytes. mag was 2.0 yesterday, repeat in morning. No Lasix dosing until restarted today. Check labs in morning (BNP, Mag, Phos, CBC, CMP) and strict I/Os. (2) Acute and chronic respiratory failure with hypercapnia: Code(s): J96.22 - Acute and chronic respiratory failure with hypercapnia Status: Chronic Assessment and Plan: Episode on , pCO2 was 89, she was hypoxic at 83% on 5 L via nasal cannula I talked to the government property inspector about the patient who recommends further workup to rule out stroke versus infection as the cause since her pH is normal. Patient CT head showed no acute intracranial abnormality. Stat chest x-ray from today showed cardiomegaly with mild interstitial edema. Venous Dopplers showed no DVT Talked to the government property inspector about the patient again and he believes she has a mixed acid-base abnormality with metabolic alkalosis due to her hypokalemia and acute respiratory failure with hypoxemia and hypercapnia. He believes she has severe contraction alkalosis due to decreased blood volume. We had started the patient on IV fluids overnight which corrected her contraction alkalosis. Will discontinue IV fluids 08/11 08/11: Patient still had hypercapnia on ABG so BiPAP was switched to AVAPS to increase the minute ventilation. 08/12: Patient doing well this morning, awake alert eating breakfast. Talked to the government property inspector, Dr. Lim, who recommends keeping her off the BiPAP and getting an ABG at this time rest to see what her CO2 level is 08/13: Patient feeling well at this time back to her baseline. Pulmonology evaluated the patient yesterday and recommends continuing BiPAP with all episodes of sleep at the hospital and at her living facility. 12/27: As per Dr. Aquino Note from today: Tonight, place the patient back on her own trilogy ventilation using the new settings: Tidal volume, 500 EPAP minimum 4, EPAP maximum 14 pressure support minimum 12 pressure support maximum 30 cm, maximum pressure 30, and rate set to auto. Do Apnea Link tonight while on the Trilogy with new settings. Repeat ABG in the morning at 6:30 am. 08/15: PT/OT, doing well on 3-4 L O2, Pulmonary D/C'd ABGs on 08/12. Patient also having intermittent weakness issues and concerned about going back to Assisted Living alone. Working on SNF placement, too weak to go back to Assisted living facility. restarted daily lasix dose. will need to monitor. may only tolerate very other day lasix dosing. (3) Elevated serum creatinine: Code(s): R79.89 - Other specified abnormal findings of blood chemistry Status: Acute Assessment and Plan: Patient's creatinine elevated to 1.3 on 08/12, could be secondary to her being on the BiPAP constantly for the last 2 days and not being able to drink much except with meals. Had held her diuretics. Creatinine normalized to 1.0 with improved respiratory function and usual eating and drinking. Creatinine 1.0 today. (4) Unresponsive: Code(s): R41.89 - Other symptoms and signs involving cognitive functions and awareness Status: Acute Assessment and Plan: Due to acute on chronic respiratory failure hypercapnia Resolved. (5) COPD exacerbation: Code(s): J44.1 - Chronic obstructive pulmonary disease with (acute) exacerbation Status: Acute Assessment and Plan: Lungs are clear. Continue home medications. No need for breathing treatments or steroids at this time. Discharge
[2021-08-15] MEDS: PENTOXIFYLLINE 400 MG TABCR PO ×2 (09:41→17:04)
[2021-08-15] MEDS: DICYCLOMINE HCL 10 MG CAPSULE 20 MG PO ×2 (09:41→17:04)
[2021-08-15] MEDS: CHOLECALCIFEROL 1,000 UNITS TABLET 1000 UNITS PO (09:41)
[2021-08-15] MEDS: SERTRALINE HCL 25 MG TABLET PO (09:41)
[2021-08-15] MEDS: SACUBITRIL/VALSARTAN 24-26 MG TABLET 1 TAB PO ×2 (09:41→20:42)
[2021-08-15] MEDS: MAGNESIUM OXIDE 400 MG TABLET PO (09:41)
[2021-08-15] MEDS: FERROUS SULFATE 324 MG TABLET PO ×2 (09:41→17:04)
[2021-08-15] MEDS: PANTOPRAZOLE 40 MG TABLET PO (09:41)
[2021-08-15] MEDS: carvediloL 3.125 MG TABLET PO ×2 (09:41→17:05)
[2021-08-15] MEDS: PREGABALIN (*CRX) 50 MG CAPSULE 200 MG PO ×2 (09:49→17:05)
--- NOTE | 2021-08-15 11:18 | PM.PNPUL ---
Progress Note: A&P Assessment and Plan (1) Acute and chronic respiratory failure with hypercapnia: Code(s): J96.22 - Acute and chronic respiratory failure with hypercapnia Status: Chronic Assessment and Plan: 76-year-old female with history of morbid obesity, hypercapnic hypoxemic respiratory failure on a noninvasive ventilatory support at home presented with worsening hypercapnic failure, severe hypokalemia with metabolic alkalosis, hypoxemia. The patient's patient's metabolic alkalosis is was most likely related to diuretic use. The patient was treated with IV fluids overnight to correct contraction alkalosis, and oral KCL to correct hypokalemia. She also received magnesium orally. patient has hypercapnic respiratory failure has significantly improved as has her mental status. Currently she is receiving just noninvasive ventilatory support at night while remaining on nasal cannula during the day. The patient prior to coming to the hospital she had been on trilogy ventilator at home with rate 14, tidal volume 400, EPAP minimum 5, EPAP maximum 5, pressure support minimum 7, pressors support maximum 25, maximum pressure 30 along with 4 L oxygen bled in. I would switch patient back to her own trilogy ventilation using the new settings. Tidal volume, 500 EPAP minimum 4, EPAP maximum 14 pressure support minimum 12 pressure support maximum 30 cm, maximum pressure 30, and rate set to auto. On these settings I would repeat apnea alarm tonight and blood gases in a.m.. The case was discussed with the hospitalist. (2) COPD (chronic obstructive pulmonary disease): Qualifiers: COPD type: unspecified COPD Qualified Code(s): J44.9 - Chronic obstructive pulmonary disease, unspecified Code(s): J44.9 - Chronic obstructive pulmonary disease, unspecified Status: Chronic (3) Atrial fibrillation: Qualifiers: Atrial fibrillation type: unspecified Qualified Code(s): I48.91 - Unspecified atrial fibrillation Code(s): I48.91 - Unspecified atrial fibrillation Status: Chronic (4) Hypokalemia: Code(s): E87.6 - Hypokalemia Status: Acute (5) Morbid obesity: Code(s): E66.01 - Morbid (severe) obesity due to excess calories Status: Acute (6) Hypomagnesemia: Code(s): E83.42 - Hypomagnesemia Status: Acute (7) Metabolic alkalosis: Code(s): E87.3 - Alkalosis Status: Acute (8) Hx of cancer of lung: Code(s): Z85.118 - Personal history of other malignant neoplasm of bronchus and lung Status: Acute (9) Disorder of diaphragm: Code(s): J98.6 - Disorders of diaphragm Status: Acute Subjective Date/time seen: 08/15/21 11:18 Patient tolerating BiPAP support at night with no issues. Fully awake oriented this a.m.. No new respiratory symptoms Review of Systems Review of Systems: All systems reviewed & are unremarkable except as noted in HPI and below Exam Narrative: GENERAL APPEARANCE: Well developed, well nourished, alert and cooperative, and appears to be in in mild respiratory distress while on on supplemental oxygen via nasal cannula NECK: Supple. There was no thyroid enlargement, and no tenderness, or masses were felt. LUNGS: Auscultation of the lungs revealed distant breath sounds no wheezing CARDIAC: There was a regular rate and rhythm without any murmurs, gallops, rubs. ABDOMEN: Soft and nontender with normal bowel sounds. There was no organomegaly. LYMPH NODES: No lymphadenopathy was appreciated in the neck. NEUROLOGIC: Alert and oriented x 3. Normal affect. Objective Data Vital Signs Vital Signs: Vital Signs - 24 hr 08/14/21 16:22 08/14/21 17:33 08/14/21 19:02 Temperature 36.4 C 37.1 C Pulse Rate 73 75 99 Respiratory Rate 18 18 Blood Pressure 121/44 L 107/70 Pulse Oximetry 98 96 08/14/21 20:00 08/14/21 22:16 08/14/21 22:19 Temperature Pulse Rate 99 75 Respiratory Rate 18 12
[2021-08-15 13:09] LABS: NT Pro B Type Natriuretic Pept 948 pg/mL (5-100)
[2021-08-15] MEDS: FUROSEMIDE 40 MG TABLET PO (17:04)
[2021-08-15] MEDS: RIVAROXABAN 20 MG TABLET PO (17:04)
[2021-08-15] MEDS: SIMVASTATIN 20 MG TABLET PO (20:42)
[2021-08-16] VITALS (9 sets, daily range): BP systolic 101–118; BP diastolic 42–91; PULSE 69–113; RESP 16–22; TEMP 35.7–36.5; O2SAT 90–99
[2021-08-16] MEDS: LEVOTHYROXINE SODIUM 125 MCG TABLET PO (06:17)
[2021-08-16 06:28] LABS: Hematocrit 34.2 % (37.0-47.0); Hemoglobin 10.3 g/dL (12.0-15.0); Mean Corpuscular HGB Conc 30.1 g/dl (32-36); Mean Corpuscular Hemoglobin 32.2 pg (26-34); Mean Corpuscular Volume 106.9 fl (80-100); Mean Platelet Volume 11.9 fl (7.4-10.4); Platelet Count Result 104 k/mm3 (150-375); Red Cell Distribution Width 15.9 % (11.5-14.5); White Blood Count 4.5 K/mm3 (4.5-10.0)
[2021-08-16 06:48] LABS: Alanine Aminotransferase 9 U/L (4-35); Albumin Level 3.4 g/dL (3.5-5.1); Alkaline Phosphatase 60 U/L (38-126); Aspartate Amino Transferase 18 U/L (14-36); Bilirubin,Total 0.3 mg/dL (0.2-1.3); Blood Urea Nitrogen 26 mg/dL (7-17); Carbon Dioxide > 40 mmol/L (22-30); Chloride 95 mmol/L (98-107); Estimated CRCL calculation 63 ml/min; Estimated Glomerular Filt Rate > 60; Glucose 86 mg/dL (65-110); Magnesium 1.9 mg/dL (1.6-2.3); Phosphorus 3.1 mg/dL (2.5-4.5); Sodium 134 mmol/L (137-145)
[2021-08-16 06:58] LABS: NT Pro B Type Natriuretic Pept 883 pg/mL (5-100)
--- NOTE | 2021-08-16 08:24 | PCRCNOTE ---
Overnight oximetry attempted. No data collected, most likely due to accidental disconnection during study. Will reattempt this evening.
[2021-08-16] MEDS: FUROSEMIDE 40 MG TABLET PO (08:56)
[2021-08-16] MEDS: PANTOPRAZOLE 40 MG TABLET PO (08:56)
[2021-08-16] MEDS: DICYCLOMINE HCL 10 MG CAPSULE 20 MG PO ×2 (08:56→17:45)
[2021-08-16] MEDS: SACUBITRIL/VALSARTAN 24-26 MG TABLET 1 TAB PO ×2 (08:56→20:09)
[2021-08-16] MEDS: MAGNESIUM OXIDE 400 MG TABLET PO (08:56)
[2021-08-16] MEDS: carvediloL 3.125 MG TABLET PO ×2 (08:56→17:45)
[2021-08-16] MEDS: PENTOXIFYLLINE 400 MG TABCR PO ×2 (08:56→17:45)
[2021-08-16] MEDS: FERROUS SULFATE 324 MG TABLET PO ×2 (08:56→17:45)
[2021-08-16] MEDS: CHOLECALCIFEROL 1,000 UNITS TABLET 1000 UNITS PO (08:56)
[2021-08-16] MEDS: SERTRALINE HCL 25 MG TABLET PO (08:56)
[2021-08-16] MEDS: PREGABALIN (*CRX) 50 MG CAPSULE 200 MG PO ×2 (09:02→17:59)
[2021-08-16] MEDS: AMOXICILLIN 500 MG CAPSULE PO ×3 (10:21→20:09)
[2021-08-16] MEDS: ACETAMINOPHEN 500 MG TABLET PO ×2 (10:31→15:55)
[2021-08-16 12:22] LABS: Alveolar/Arterial O2 Gradient 53.4 mmHg; Base Excess ABG 10.5 mEq/l (+/-2.0); Fractional Inspired Oxygen 28 %; HCO3 ABG 37.5 mEq/l (22.0-26.0); Oxygen Content ABG 14.9 %vol (16.0-22.0); Oxygen Saturation ABG 93.9 % (95.0-100.0); Oxyhemoglobin 92.5 % THb (90.0-100.0); PO2 FiO2 Ratio Arterial Blood 2.57 %; Total Hemoglobin 11.4 g/dL (12.0-18.0); pH ABG 7.393 (7.350-7.450)
[2021-08-16 12:27] LABS: Device NASAL CANNULA; Modified Allen's Test Pass; PCO2 ABG 62.9 mmHg (35.0-45.0); Site Drawn RIGHT RADIAL
--- NOTE | 2021-08-16 14:08 | PM.IMPN ---
Progress Note: A&P Assessment and Plan (1) Acute and chronic respiratory failure with hypercapnia: Code(s): J96.22 - Acute and chronic respiratory failure with hypercapnia Status: Chronic Assessment and Plan: On admission, pCO2 was 89, she was hypoxic at 83% on 5 L via nasal cannula. CT head showed no acute intracranial abnormality. CXR showed cardiomegaly with mild interstitial edema. Venous Dopplers showed no DVT. Lasix held and she was started the on IV fluids which corrected her contraction alkalosis. Patient still had hypercapnia so BiPAP was switched to AVAPS to increase the minute ventilation. Patient dd well. Pulmonology evaluated the patient yesterday and recommends continuing NIV with all episodes of sleep at the hospital and at her living facility. ABG today showing 7.39/63/72 on 2L. Patient also having intermittent weakness issues and concerned about going back to Assisted Living alone. Working on SNF placement since too weak to go back to Assisted living facility. Continue therapy. (2) COPD exacerbation: Code(s): J44.1 - Chronic obstructive pulmonary disease with (acute) exacerbation Status: Acute Assessment and Plan: Lungs are clear without wheezing. Appreciate pulmonary input. Continue home medications. As above. (3) KONRAD (acute kidney injury): Code(s): N17.9 - Acute kidney failure, unspecified Status: Acute Assessment and Plan: Patient's creatinine elevated to 1.3 on 08/12. Could be secondary to her being on the BiPAP constantly for the last 2 days and not being able to drink much. Her diuretics were held. Creatinine normalized to 1.0 with improved respiratory function and usual eating and drinking. Creatinine 0.9 today . She is tolerating her Lasix dose. (4) Hypokalemia: Code(s): E87.6 - Hypokalemia Status: Acute Assessment and Plan: Patient with hypokalemia at 2.7, elevated serum bicarb greater than 40 on admission. likely due to her home Lasix. Potassium was replaced. Potassium normal today. Continue to follow. (5) UTI (urinary tract infection): Code(s): N39.0 - Urinary tract infection, site not specified Status: Acute Assessment and Plan: UA showing 2+ blood, 11-20 red cells and 16-20 white cells. Negative leukocyte esterase and negative nitrates. Urine culture growing Enterococcus species 100 K that is sensitive to ampicillin. Her Khan catheter has been exchanged already. Will start amoxicillin. (6) Unresponsive: Code(s): R41.89 - Other symptoms and signs involving cognitive functions and awareness Status: Acute Assessment and Plan: Due to acute on chronic respiratory failure hypercapnia. Resolved. (7) Atrial fibrillation: Qualifiers: Atrial fibrillation type: unspecified Qualified Code(s): I48.91 - Unspecified atrial fibrillation Code(s): I48.91 - Unspecified atrial fibrillation Status: Chronic Assessment and Plan: Patient with chronic atrial fibrillation. Heart rate well controlled with Coreg. Continue Xarelto. Continue to monitor (8) Congestive heart failure (CHF): Qualifiers: Heart failure type: unspecified Heart failure chronicity: chronic Qualified Code(s): I50.9 - Heart failure, unspecified Code(s): I50.9 - Heart failure, unspecified Status: Chronic Assessment and Plan: History of systolic congestive heart failure But last echocardiogram in August showing EF of 60-65% and abnormal diastolic function. Lasix was on hold for alkalosis but now have been resumed. She remains on Entresto, Coreg and Lasix 40 mg daily. Continue monitoring strict intake and output, daily weights (9) Macrocytic anemia: Code(s): D53.9 - Nutritional anemia, unspecified Status: Acute Assessment and Plan: Patient has macrocytic anemia. Hemoglobin running in the 10-11 range. B12 and folate leve
--- NOTE | 2021-08-16 15:39 | PM.PNPUL ---
Progress Note: A&P Assessment and Plan (1) Acute and chronic respiratory failure with hypercapnia: Code(s): J96.22 - Acute and chronic respiratory failure with hypercapnia Status: Chronic Assessment and Plan: 08/16 Patient with a history of COPD and acute on chronic respiratory failure with hypercapnia requiring a noninvasive ventilator previously and now that she is at [facility] she has been maintained on BiPAP 20/15. She is non compliant from her download between 07/16 and 08/14 demonstrating usage greater than or equal to 4 hours at 2 of 30 days or 7%. Today she told me that previously when she did wear her mask and machine she did better. Patient is in agreement to continue her mask and machine at this time and has tolerated AVAPS rate of 16, tidal volume 500, expiratory pressure 6, minimum inspiratory pressure 9, maximal inspiratory pressure 25 with saturations 97% on 50%. At this time I do not feel there is a pneumonia, COPD exacerbation and I will continue her home trilogy 100-60 2.5-25 at 1 puff Q 24 hours. currently she is on 4 L nasal cannula with saturations 95%. She tells me at home she wears 3 during the day and for at night so she is close to her baseline. She had a blood gas on 08/16 on 2 L of 7.39/63/72. will obtain an overnight oximetry tonight on AVAPS (Rate of 16, tidal volume 500, EPAP 6, minimal IPAP 12, maximal IPAP 30, inspiratory time 1.2, rise of 5, FIO2 40%) and ABG in morning on AVAPS. Will follow with you. Subjective Date/time seen: 08/16/21 15:39 Patient tells me that she is breathing back to her normal. Patient is on 4 L nasal cannula saturations 95%. White blood cell count is 4.5. Patient wore noninvasive ventilator with the a VATS mode last night unfortunately overnight oximetry and ABG were not performed. The patient told me that maybe she was wearing her BiPAP at home 2 times a week. I have obtained a download from 07/16 through 1226 and her compliance a greater than 4 hours is 2 of 30 days or 7%. Her average usage on days used is 4 hours and 25 minutes. She has stat to an IPAP of 20 and EPAP of 15. Her AHI is 20.2, her leak is 68.6 median, 95th percentile leak 108, maximum leak 120. This demonstrates poor compliance with a high AHI And a high leak while on 20/15. patient is not tolerating the BiPAP and given her blood gas I will initiate noninvasive ventilation with AVAPS mode. Review of Systems Review of Systems: All systems reviewed & are unremarkable except as noted in HPI and below Eyes: Eyes: Reports no additional eye complaints ENT: Reports system reviewed and no additional complaints, except as documented Cardiovascular: Cardiovascular: Reports no additional cardiovascular complaints Respiratory: Respiratory: Reports no additional respiratory complaints Gastrointestinal: Gastrointestinal: Reports no additional gastrointestinal complaints Musculoskeletal: Musculoskeletal: Reports no additional musculoskeletal complaints Integumentary/Breasts: Skin/Breast: Reports system reviewed and no additional complaints, except as docu Neurologic: Reports system reviewed and no additional complaints, except as documented Psychiatric: Psychiatric: Reports no additional psychiatric complaints Endocrine: Endocrine: Reports no additional endocrine complaints Exam Const: General: cooperative Nutritional Appearance: obese morbidly obese Orientation/consciousness: oriented to person, oriented to place and oriented to time HENMT: Head: normal to inspection Ears: hearing grossly normal bilaterally Mouth: Yes Normal oral and palatal mucosa present Throat: tonsils absent Eyes: General: appearance normal, both eyes and all related structures Neck: Neck: normal visual inspection Chest: Chest palpation & inspection: normal inspection of the chest Resp: Effort & Inspection: normal respiratory effort and able to speak in complete sentences Ausculta
[2021-08-16] MEDS: FLUTICASONE/UMECLIDIN/VILANTER 100-62.5-25 MCG ELLIPTA 1 PUFF INHALATION ×2 (15:40→15:41)
[2021-08-16] MEDS: MENTHOL 10% / METHYL SALICYLATE 15% 57 GM TUBE 1 APPLIC TOPICAL (15:58)
[2021-08-16] MEDS: RIVAROXABAN 20 MG TABLET PO (17:45)
[2021-08-16] MEDS: SIMVASTATIN 20 MG TABLET PO (20:09)
[2021-08-16] MEDS: HYDROcodone/acetaminophen (*CRX) 5-325 MG TABLET 1 TAB PO (20:09)
[2021-08-17] VITALS (14 sets, daily range): BP systolic 66–126; BP diastolic 44–90; PULSE 86–119; RESP 14–23; TEMP 36.2–37.7; O2SAT 32–94
[2021-08-17] MEDS: LEVOTHYROXINE SODIUM 125 MCG TABLET PO (05:54)
[2021-08-17] MEDS: AMOXICILLIN 500 MG CAPSULE PO (05:54)
[2021-08-17] MEDS: HYDROcodone/acetaminophen (*CRX) 5-325 MG TABLET 1 TAB PO (05:54)
[2021-08-17 06:59] LABS: Basophils Percent Auto 0.3 % (0.2-1.2); Hematocrit 36.5 % (37.0-47.0); Hemoglobin 11.2 g/dL (12.0-15.0); Immature Granulocyte Absolute 0.06 K/mm3 (0.00-0.031); Immature Granulocyte Percent A 0.6 % (0-0.5); Lymphocytes Absolute Auto 0.71 K/mm3 (0.9-3.2); Lymphocytes Percent Auto 6.7 % (18.3-44.2); Mean Corpuscular HGB Conc 30.7 g/dl (32-36); Mean Corpuscular Hemoglobin 32.3 pg (26-34); Mean Corpuscular Volume 105.2 fl (80-100); Mean Platelet Volume 12.5 fl (7.4-10.4); Monocytes Absolute Auto 1.1 K/mm3 (0.1-0.6); Monocytes Percent Auto 10.6 % (2.6-8.5); Neutrophils Absolute Auto 8.7 K/mm3 (1.3-6.7); Neutrophils Percent Auto 81.8 % (45.5-73.1); Platelet Count Result 121 k/mm3 (150-375); Red Blood Count 3.47 M/mm3 (4.2-5.4); Red Cell Distribution Width 15.9 % (11.5-14.5); White Blood Count 10.7 K/mm3 (4.5-10.0)
[2021-08-17 07:11] LABS: Albumin Level 3.8 g/dL (3.5-5.1); Anion Gap 7 mmol/L (8-16); Blood Urea Nitrogen 29 mg/dL (7-17); Calcium 8.5 mg/dL (8.4-10.2); Carbon Dioxide 38 mmol/L (22-30); Chloride 94 mmol/L (98-107); Estimated CRCL calculation 57 ml/min; Estimated Glomerular Filt Rate 54; Glucose 127 mg/dL (65-110); Magnesium 1.9 mg/dL (1.6-2.3); Phosphorus 3.3 mg/dL (2.5-4.5); Potassium 4.9 mmol/L (3.4-5.0); Sodium 139 mmol/L (137-145)
--- NOTE | 2021-08-17 07:58 | PCRCNOTE ---
ABG ATTEMPTED SIX TIMES. UNABLE TO OBTAIN.
[2021-08-17] MEDS: DICYCLOMINE HCL 10 MG CAPSULE 20 MG PO (08:05)
[2021-08-17] MEDS: PREGABALIN (*CRX) 50 MG CAPSULE 200 MG PO (08:05)
[2021-08-17] MEDS: SERTRALINE HCL 25 MG TABLET PO (08:06)
[2021-08-17] MEDS: carvediloL 3.125 MG TABLET PO (08:06)
[2021-08-17] MEDS: CHOLECALCIFEROL 1,000 UNITS TABLET 1000 UNITS PO (08:06)
[2021-08-17] MEDS: PENTOXIFYLLINE 400 MG TABCR PO (08:06)
[2021-08-17] MEDS: SACUBITRIL/VALSARTAN 24-26 MG TABLET 1 TAB PO (08:06)
[2021-08-17] MEDS: FUROSEMIDE 40 MG TABLET PO (08:06)
[2021-08-17] MEDS: FERROUS SULFATE 324 MG TABLET PO (08:06)
[2021-08-17] MEDS: MAGNESIUM OXIDE 400 MG TABLET PO (08:06)
[2021-08-17] MEDS: PANTOPRAZOLE 40 MG TABLET PO (08:06)
--- NOTE | 2021-08-17 08:48 | PM.IMPN ---
Progress Note: A&P Assessment and Plan (1) Altered mental status: Code(s): R41.82 - Altered mental status, unspecified Status: Acute Assessment and Plan: etiology unclear. Patient appears encephalopathic. No obvious evidence of CVA but consider hemorrhagic event (on Xarelto). Could be idiosyncratic reaction to the [place] or Amoxicillin. She is noted to have elevated pCO2 so consider CO2 narcosis. Repeat blood gas today. Check CT of the brain. Check ammonia level. Stop [place]. Will make her NPO until she is more awake alert. Monitor for fevers. 38min spent on critical care time (2) Acute and chronic respiratory failure with hypercapnia: Code(s): J96.22 - Acute and chronic respiratory failure with hypercapnia Status: Chronic Assessment and Plan: On admission, pCO2 was 89, she was hypoxic at 83% on 5 L via nasal cannula. CT head showed no acute intracranial abnormality. CXR showed cardiomegaly with mild interstitial edema. Venous Dopplers showed no DVT. Lasix held and she was started the on IV fluids which corrected her contraction alkalosis. Patient still had hypercapnia so BiPAP was switched to AVAPS to increase the minute ventilation. Patient dd well. Pulmonology evaluated the patient and recommends continuing NIV with all episodes of sleep at the hospital and at her living facility. (3) COPD exacerbation: Code(s): J44.1 - Chronic obstructive pulmonary disease with (acute) exacerbation Status: Acute Assessment and Plan: No overt wheezing. Appreciate pulmonary input. Continue home medications. As above. (4) KONRAD (acute kidney injury): Code(s): N17.9 - Acute kidney failure, unspecified Status: Acute Assessment and Plan: Patient's creatinine elevated to 1.3 on 08/12. Could be secondary to her being on the BiPAP constantly for the last 2 days and not being able to drink much. Her diuretics were held. Creatinine normalized to 1.0 with improved respiratory function and usual eating and drinking. Creatinine 1.0 today. She is tolerating her Lasix dose. (5) Hypokalemia: Code(s): E87.6 - Hypokalemia Status: Acute Assessment and Plan: Patient with hypokalemia at 2.7, elevated serum bicarb greater than 40 on admission. likely due to her home Lasix. Potassium was replaced. Potassium normal today. Continue to follow. (6) UTI (urinary tract infection): Code(s): N39.0 - Urinary tract infection, site not specified Status: Acute Assessment and Plan: UA showing 2+ blood, 11-20 red cells and 16-20 white cells. Negative leukocyte esterase and negative nitrates. Urine culture growing Enterococcus species 100 K that is sensitive to ampicillin. Her Khan catheter has been exchanged already. Continue amoxicillin for now. (7) Unresponsive: Code(s): R41.89 - Other symptoms and signs involving cognitive functions and awareness Status: Acute Assessment and Plan: Due to acute on chronic respiratory failure hypercapnia. Resolved. (8) Atrial fibrillation: Qualifiers: Atrial fibrillation type: unspecified Qualified Code(s): I48.91 - Unspecified atrial fibrillation Code(s): I48.91 - Unspecified atrial fibrillation Status: Chronic Assessment and Plan: Patient with chronic atrial fibrillation. Heart rate well controlled with Coreg. Hold oral medications until patient more awake and alert. (9) Congestive heart failure (CHF): Qualifiers: Heart failure chronicity: chronic Heart failure type: unspecified Qualified Code(s): I50.9 - Heart failure, unspecified Code(s): I50.9 - Heart failure, unspecified Status: Chronic Assessment and Plan: History of systolic congestive heart failure But last echocardiogram in August showing EF of 60-65% and abnormal diastolic function. Lasix was on hold for alkalosis but now have been resumed. She
[2021-08-17 09:17] LABS: Glucose Point of Care 128 mg/dl (65-105)
[2021-08-17 09:47] LABS: Ammonia < 9 umol/L (9-30)
[2021-08-17] MEDS: FLUTICASONE/UMECLIDIN/VILANTER 100-62.5-25 MCG ELLIPTA 1 PUFF INHALATION (09:52)
[2021-08-17 10:00] LABS: Alveolar/Arterial O2 Gradient 92.6 mmHg; Base Excess ABG 13.9 mEq/l (+/-2.0); Fractional Inspired Oxygen 32 %; Oxygen Content ABG 14.4 %vol (16.0-22.0); PO2 ABG 51.4 mmHg (80.0-100.0); PO2 FiO2 Ratio Arterial Blood 1.61 %; pH ABG 7.384 (7.350-7.450)
[2021-08-17 10:01] LABS: PCO2 ABG 71.9 mmHg (35.0-45.0)
[2021-08-17 10:02] LABS: Device NASAL CANNULA; Oxygen Saturation ABG 84.2 % (95.0-100.0); Oxyhemoglobin 85.1 % THb (90.0-100.0); Site Drawn RIGHT BRACHIAL
--- NOTE | 2021-08-17 11:28 | PCPTNOTE ---
Attempted to see patient for PT this A.M., however patient is not appropriate for therapy at this time. Per nursing patient is not alert, patient is just responding with moans and groans, and is having a lot of pain.
--- NOTE | 2021-08-17 12:36 | PM.PNPUL ---
Progress Note: A&P Assessment and Plan (1) Acute and chronic respiratory failure with hypercapnia: Code(s): J96.22 - Acute and chronic respiratory failure with hypercapnia Status: Chronic Assessment and Plan: 08/16 Patient with a history of COPD and acute on chronic respiratory failure with hypercapnia requiring a noninvasive ventilator previously and now that she is at [facility] she has been maintained on BiPAP 20/15. She is non compliant from her download between 07/16 and 08/14 demonstrating usage greater than or equal to 4 hours at 2 of 30 days or 7%. Today she told me that previously when she did wear her mask and machine she did better. Patient is in agreement to continue her mask and machine at this time and has tolerated AVAPS rate of 16, tidal volume 500, expiratory pressure 6, minimum inspiratory pressure 9, maximal inspiratory pressure 25 with saturations 97% on 50%. At this time I do not feel there is a pneumonia, COPD exacerbation and I will continue her home trilogy 100-60 2.5-25 at 1 puff Q 24 hours. currently she is on 4 L nasal cannula with saturations 95%. She tells me at home she wears 3 during the day and for at night so she is close to her baseline. She had a blood gas on 08/16 on 2 L of 7.39/63/72. will obtain an overnight oximetry tonight on AVAPS (Rate of 16, tidal volume 500, EPAP 6, minimal IPAP 12, maximal IPAP 30, inspiratory time 1.2, rise of 5, FIO2 40%) and ABG in morning on AVAPS. 08/17 Patient with altered mental status this morning. Patient did receive [place] last night and this morning. Her fingerstick was 128. Stat blood gas demonstrates a pH of 7.38/72/51 on 3 L nasal cannula and she has been increased to 4 and half L nasal cannula and her saturations are 90%. She does have a chronic respiratory acidosis that is compensated with a pH of 7.38. I do not believe that hypercarbic respiratory failure is causing her altered mental status. She does track with her eyes and can perform a minimal manager training and development and has no evidence of a grand mal seizure on physical exam. She does have bilateral upper extremity tremors. Creatinine is 1.0 white blood cell count is 10.7. Ammonia level is normal. Stat head CT has been performed and there is no acute changes. There are no wheezes on exam and I will continue her trilogy 100-62.5-25. Diuresed 3.6 liters since admission. Patient wore her noninvasive ventilation with AVAPS mode last night with a rate of 16, tidal volume 500, EPAP 6, minimal inspiratory pressure 12, maximal inspiratory pressure 35 with 40%. no blood gas was performed at the end of the night on the settings. Patient had an overnight oximetry on these settings with her average saturation 94%. Time with saturation less than or equal to 88% was 0 minutes. Will follow with you. Subjective Date/time seen: 08/17/21 12:36 Interval history: 08/16/21 15:39 Patient tells me that she is breathing back to her normal. Patient is on 4 L nasal cannula saturations 95%. White blood cell count is 4.5. Patient wore noninvasive ventilator with the a VATS mode last night unfortunately overnight oximetry and ABG were not performed. The patient told me that maybe she was wearing her BiPAP at home 2 times a week. I have obtained a download from 07/16 through 1226 and her compliance a greater than 4 hours is 2 of 30 days or 7%. Her average usage on days used is 4 hours and 25 minutes. She has stat to an IPAP of 20 and EPAP of 15. Her AHI is 20.2, her leak is 68.6 median, 95th percentile leak 108, maximum leak 120. This demonstrates poor compliance with a high AHI And a high leak while on 20/15. patient is not tolerating the BiPAP and given her blood gas I will initiate noninvasive ventilation with AVAPS mode. 08/17 Patient with altered mental status this morning. Patient did receive [place] last night and this morning. Her fingerstick was 128. Stat blood gas demonstrates a pH of 7.38/7
[2021-08-17] MEDS: SODIUM CHLORIDE 0.9% IV 500 ML IV CONT (16:02)
--- NOTE | 2021-08-17 17:15 | PC.NURSE ---
PER DR. PIERCE, HOLDING ALL ORAL MEDICATIONS.
[2021-08-18] VITALS (13 sets, daily range): BP systolic 94–135; BP diastolic 43–67; PULSE 92–109; RESP 16–26; TEMP 35.7–37; O2SAT 91–100
[2021-08-18 05:59] LABS: Hematocrit 34.5 % (37.0-47.0); Hemoglobin 10.3 g/dL (12.0-15.0); Mean Corpuscular HGB Conc 29.9 g/dl (32-36); Mean Corpuscular Hemoglobin 32.3 pg (26-34); Mean Corpuscular Volume 108.2 fl (80-100); Mean Platelet Volume 12.1 fl (7.4-10.4); Platelet Count Result 105 k/mm3 (150-375); Red Blood Count 3.19 M/mm3 (4.2-5.4)
[2021-08-18 06:09] LABS: Anion Gap 7 mmol/L (8-16); Blood Urea Nitrogen 48 mg/dL (7-17); Calcium 8.4 mg/dL (8.4-10.2); Carbon Dioxide 35 mmol/L (22-30); Chloride 96 mmol/L (98-107); Estimated CRCL calculation 23 ml/min; Estimated Glomerular Filt Rate 18; Glucose 124 mg/dL (65-110); Sodium 138 mmol/L (137-145)
[2021-08-18] MEDS: FERROUS SULFATE 324 MG TABLET PO ×2 (08:21→16:27)
[2021-08-18] MEDS: SACUBITRIL/VALSARTAN 24-26 MG TABLET 1 TAB PO (08:22)
[2021-08-18] MEDS: DICYCLOMINE HCL 10 MG CAPSULE 20 MG PO ×2 (08:22→16:26)
[2021-08-18] MEDS: MAGNESIUM OXIDE 400 MG TABLET PO (08:22)
[2021-08-18] MEDS: CHOLECALCIFEROL 1,000 UNITS TABLET 1000 UNITS PO (08:23)
[2021-08-18] MEDS: SERTRALINE HCL 25 MG TABLET PO (08:23)
[2021-08-18] MEDS: PANTOPRAZOLE 40 MG TABLET PO (08:23)
[2021-08-18] MEDS: PENTOXIFYLLINE 400 MG TABCR PO ×2 (08:23→16:27)
[2021-08-18] MEDS: PREGABALIN (*CRX) 50 MG CAPSULE 200 MG PO (08:25)
--- NOTE | 2021-08-18 10:54 | PM.PNPUL ---
Progress Note: A&P Assessment and Plan (1) Acute and chronic respiratory failure with hypercapnia: Code(s): J96.22 - Acute and chronic respiratory failure with hypercapnia Status: Chronic Assessment and Plan: 08/16 Patient with a history of COPD and acute on chronic respiratory failure with hypercapnia requiring a noninvasive ventilator previously and now that she is at [facility] she has been maintained on BiPAP 20/15. She is non compliant from her download between 07/16 and 08/14 demonstrating usage greater than or equal to 4 hours at 2 of 30 days or 7%. Today she told me that previously when she did wear her mask and machine she did better. Patient is in agreement to continue her mask and machine at this time and has tolerated AVAPS rate of 16, tidal volume 500, expiratory pressure 6, minimum inspiratory pressure 9, maximal inspiratory pressure 25 with saturations 97% on 50%. At this time I do not feel there is a pneumonia, COPD exacerbation and I will continue her home trilogy 100-60 2.5-25 at 1 puff Q 24 hours. currently she is on 4 L nasal cannula with saturations 95%. She tells me at home she wears 3 during the day and for at night so she is close to her baseline. She had a blood gas on 08/16 on 2 L of 7.39/63/72. will obtain an overnight oximetry tonight on AVAPS (Rate of 16, tidal volume 500, EPAP 6, minimal IPAP 12, maximal IPAP 30, inspiratory time 1.2, rise of 5, FIO2 40%) and ABG in morning on AVAPS. 08/17 Patient with altered mental status this morning. Patient did receive [place] last night and this morning. Her fingerstick was 128. Stat blood gas demonstrates a pH of 7.38/72/51 on 3 L nasal cannula and she has been increased to 4 and half L nasal cannula and her saturations are 90%. She does have a chronic respiratory acidosis that is compensated with a pH of 7.38. I do not believe that hypercarbic respiratory failure is causing her altered mental status. She does track with her eyes and can perform a minimal electrode cleaner and has no evidence of a grand mal seizure on physical exam. She does have bilateral upper extremity tremors. Creatinine is 1.0 white blood cell count is 10.7. Ammonia level is normal. Stat head CT has been performed and there is no acute changes. There are no wheezes on exam and I will continue her trilogy 100-62.5-25. Diuresed 3.6 liters since admission. Patient wore her noninvasive ventilation with AVAPS mode last night with a rate of 16, tidal volume 500, EPAP 6, minimal inspiratory pressure 12, maximal inspiratory pressure 35 with 40%. no blood gas was performed at the end of the night on the settings. Patient had an overnight oximetry on these settings with her average saturation 94%. Time with saturation less than or equal to 88% was 0 minutes. 08/18 Patient had fever, hypotension worsening oxygenation and KONRAD consistent with sepsis. She may have pneumonia and she is also being worked up for a pyelonephritis. Patient does have worsening of her chronic back pain. Blood cultures are negative. Patient's mental status has slowly improved she is still lethargic but now follow simple commands. Patient wore her noninvasive ventilator with the AVAPS mode continuously overnight. She has developed acute renal failure and had a fever last night of 37.7 was empirically started on vancomycin and cefepime on 08/17. Chest x-ray showed elevated right hemidiaphragm and continued stable right lung and left lung infiltrates. I was able to take her off of BiPAP for approximately 15 minutes and the patient then had desaturations despite 15 L nasal cannula. She complained of excruciating back pain and may require imaging in the future. No wheezes on exam and will continue trelegy. Discussed with Dr. Mae inpatient Pulmonary Services will resume on 08/21/2021. Subjective Date/time seen: 08/18/21 10:54 Interval history: 08/16/21 15:39 Patient tells me that she is breathing back
--- NOTE | 2021-08-18 12:38 | ECG_ITS ---
Measurements Intervals [place] Rate: 102 P: OK: 0 QRS: 52 QRSD: 92 T: 92 QT: 302 QTc: 395 Interpretive Statements ATRIAL FIBRILLATION WITH RAPID VENTRICULAR RESPONSE MINIMAL Q WAVES- INFERIOR LEADS BORDERLINE T WAVE ABNORMALITY- ANT/HIGH LAT LEADS BASELINE ARTIFACT- II, III, AVL, AVF ABNORMAL ECG Electronically Signed On 08-18-2021 14:52:03 TECHNOLOGY ADOPTION MANAGER by Jason Richards D.O.
--- NOTE | 2021-08-18 12:38 | PM.IMPN ---
Progress Note: A&P Assessment and Plan (1) Altered mental status: Code(s): R41.82 - Altered mental status, unspecified Status: Acute Assessment and Plan: Etiology unclear. Patient appears encephalopathic. No obvious evidence of CVA and CT brain showing no acute findings. Could be idiosyncratic reaction to the [place] or Amoxicillin but of which are stopped. She wore her BiPAP all night so consider CO2 narcosis. Ammonia level negative. She is having fevers now so consider sepsis. Cx obtained. Add Sputum cx. Consider intrabdominal process. Now with KONRAD as well which could be from the HoTN and/or UTI. COntineu IV abx. Check CT A/P. COnsider paraspinal process but not stable for MR right now. Unclear if she is having chest pain but will check EKG and Trop. Move to IMU. CT A/P reviewed showing no acute findings. BCx have retunred positive for Gram positive cocci in clusters (2of2). Consider enterococcus from the urine. Suspect the etiology of her AMS related to septic shock. 38 minutes spent on critical care time (2) KONRAD (acute kidney injury): Code(s): N17.9 - Acute kidney failure, unspecified Status: Acute Assessment and Plan: Patient's creatinine elevated to 1.3 on 08/12. Could be secondary to her being on the BiPAP constantly for the last 2 days and not being able to drink much. Her diuretics were held. Creatinine normalized to 1.0 with improved respiratory function and usual eating and drinking. Creatinine 1.0 yesterday but increased to 2.6 today felt related to the HoTN event yesterday. Lasix and COreg stopped. UOP noted. Start IV fluids. Check urine studies. UA pending still (3) Acute and chronic respiratory failure with hypercapnia: Code(s): J96.22 - Acute and chronic respiratory failure with hypercapnia Status: Chronic Assessment and Plan: On admission, pCO2 was 89, she was hypoxic at 83% on 5 L via nasal cannula. CT head showed no acute intracranial abnormality. CXR showed cardiomegaly with mild interstitial edema. Venous Dopplers showed no DVT. Lasix held and she was started the on IV fluids which corrected her contraction alkalosis. Patient still had hypercapnia so BiPAP was switched to AVAPS to increase the minute ventilation. Patient dd well. Pulmonology following and appreciate their input. Continue BiPAP and wean as toelrated. (4) COPD exacerbation: Code(s): J44.1 - Chronic obstructive pulmonary disease with (acute) exacerbation Status: Acute Assessment and Plan: No overt wheezing. Appreciate pulmonary input. Continue home medications. As above. (5) Hypokalemia: Code(s): E87.6 - Hypokalemia Status: Acute Assessment and Plan: Patient with hypokalemia at 2.7, elevated serum bicarb greater than 40 on admission. likely due to her home Lasix. Potassium was replaced. Potassium high normal today. Continue to follow. (6) UTI (urinary tract infection): Code(s): N39.0 - Urinary tract infection, site not specified Status: Acute Assessment and Plan: UA showing 2+ blood, 11-20 red cells and 16-20 white cells. Negative leukocyte esterase and negative nitrates. Urine culture growing Enterococcus species 100 K that is sensitive to ampicillin. Her Khan catheter has been exchanged already. Changed to Vanco. Stop Amoxicillin (7) Unresponsive: Code(s): R41.89 - Other symptoms and signs involving cognitive functions and awareness Status: Acute Assessment and Plan: Due to acute on chronic respiratory failure hypercapnia. Initial issue resolved but now as above. (8) Atrial fibrillation: Qualifiers: Atrial fibrillation type: unspecified Qualified Code(s): I48.91 - Unspecified atrial fibrillation Code(s): I48.91 - Unspecified atrial fibrillation Status: Chronic Assessment and Plan: Patient with chronic atrial fibrillation. Heart rate well controlled with Co
[2021-08-18] MEDS: SODIUM CHLORIDE 0.9% IV 1,000 ML 100 ML IV CONT (13:18)
[2021-08-18 13:34] LABS: Add Urine Microscopic? YES; Appearance Urine Cloudy (Clear); Bacteria Urine Trace /hpf; Bilirubin Urine Negative (Negative); Blood Urine 2+ (Negative); Color Urine Amber (Yellow); Glucose Urine UA Negative (Negative); Ketones Urine Negative (Negative); Leukocyte Esterase Ur 2+ LEU/UL (Negative); Mucus Urine Moderate /lpf; Nitrate Urine Negative (Negative); Protein Urine 2+ mg/dL (Negative); Specific Grav Ur 1.026 (1.001-1.035); Squamous Epithelial Cell Urine Few /hpf (Few); Urobilinogen Urine Negative mg/dL (<2.0); WBC Clumps Urine Present /HPF; WBC Urine 51-75 /hpf
[2021-08-18 13:42] LABS: Basophils Percent Auto 0.4 % (0.2-1.2); Eosinophils Percent Auto 0.4 % (0-4.4); Hematocrit 32.9 % (37.0-47.0); Hemoglobin 9.9 g/dL (12.0-15.0); Immature Granulocyte Absolute 0.07 K/mm3 (0.00-0.031); Immature Granulocyte Percent A 0.7 % (0-0.5); Lymphocytes Absolute Auto 0.39 K/mm3 (0.9-3.2); Lymphocytes Percent Auto 4.1 % (18.3-44.2); Mean Corpuscular HGB Conc 30.1 g/dl (32-36); Mean Corpuscular Hemoglobin 32.4 pg (26-34); Mean Corpuscular Volume 107.5 fl (80-100); Mean Platelet Volume 12.4 fl (7.4-10.4); Monocytes Absolute Auto 0.6 K/mm3 (0.1-0.6); Monocytes Percent Auto 6.1 % (2.6-8.5); Neutrophils Absolute Auto 8.5 K/mm3 (1.3-6.7); Neutrophils Percent Auto 88.3 % (45.5-73.1); Platelet Count Result 111 k/mm3 (150-375); Red Blood Count 3.06 M/mm3 (4.2-5.4); Red Cell Distribution Width 15.9 % (11.5-14.5); White Blood Count 9.6 K/mm3 (4.5-10.0)
[2021-08-18 13:51] LABS: Troponin I 0.019 ng/mL (0.000-0.034)
[2021-08-18 14:02] LABS: Eosinophil Urine Rare % (None Seen)
[2021-08-18 14:06] LABS: Alanine Aminotransferase 19 U/L (4-35); Albumin Level 3.3 g/dL (3.5-5.1); Alkaline Phosphatase 71 U/L (38-126); Anion Gap 9 mmol/L (8-16); Aspartate Amino Transferase 37 U/L (14-36); Bilirubin,Total 0.5 mg/dL (0.2-1.3); Blood Urea Nitrogen 55 mg/dL (7-17); CRP > 9.0 mg/dL (<1.0); Calcium 8.4 mg/dL (8.4-10.2); Carbon Dioxide 35 mmol/L (22-30); Chloride 94 mmol/L (98-107); Creatine Kinase 508 U/L (30-135); Estimated CRCL calculation 23 ml/min; Estimated Glomerular Filt Rate 18; Glucose 122 mg/dL (65-110); Lipase 13 U/L (23-300); Sodium 138 mmol/L (137-145)
[2021-08-18 14:38] LABS: Complement C3 115 mg/dL (88-165)
[2021-08-18 18:29] LABS: Troponin I 0.016 ng/mL (0.000-0.034)
--- NOTE | 2021-08-18 18:44 | PC.NURSE ---
pt transferred to IMU, room 211 - 01, via bed with bipap and sevilla in place.
[2021-08-18 21:07] LABS: Troponin I 0.016 ng/mL (0.000-0.034)
[2021-08-18 21:33] LABS: Sodium Urine Random < 5 meq/L
[2021-08-19] VITALS (17 sets, daily range): BP systolic 94–142; BP diastolic 39–108; PULSE 80–109; RESP 16–20; TEMP 36–36.6; O2SAT 93–100
[2021-08-19] MEDS: SODIUM CHLORIDE 0.9% IV 1,000 ML 100 ML IV CONT (01:36)
[2021-08-19 05:35] LABS: Basophils Percent Auto 0.4 % (0.2-1.2); Eosinophils Percent Auto 0.1 % (0-4.4); Hematocrit 31.6 % (37.0-47.0); Hemoglobin 9.6 g/dL (12.0-15.0); Immature Granulocyte Absolute 0.03 K/mm3 (0.00-0.031); Immature Granulocyte Percent A 0.4 % (0-0.5); Lymphocytes Absolute Auto 0.55 K/mm3 (0.9-3.2); Lymphocytes Percent Auto 7.9 % (18.3-44.2); Mean Corpuscular HGB Conc 30.4 g/dl (32-36); Mean Corpuscular Hemoglobin 32.9 pg (26-34); Mean Corpuscular Volume 108.2 fl (80-100); Mean Platelet Volume 12.2 fl (7.4-10.4); Monocytes Absolute Auto 0.6 K/mm3 (0.1-0.6); Monocytes Percent Auto 8.8 % (2.6-8.5); Neutrophils Absolute Auto 5.7 K/mm3 (1.3-6.7); Neutrophils Percent Auto 82.4 % (45.5-73.1); Platelet Count Result 104 k/mm3 (150-375); Red Blood Count 2.92 M/mm3 (4.2-5.4); Red Cell Distribution Width 15.8 % (11.5-14.5); White Blood Count 6.9 K/mm3 (4.5-10.0)
[2021-08-19] MEDS: LEVOTHYROXINE SODIUM 125 MCG TABLET PO (06:16)
[2021-08-19 06:30] LABS: Alanine Aminotransferase 20 U/L (4-35); Albumin Level 3.1 g/dL (3.5-5.1); Alkaline Phosphatase 73 U/L (38-126); Anion Gap 6 mmol/L (8-16); Aspartate Amino Transferase 40 U/L (14-36); Bilirubin,Total 0.3 mg/dL (0.2-1.3); Blood Urea Nitrogen 53 mg/dL (7-17); CRP 42.2 mg/dL (<1.0); Calcium 8.1 mg/dL (8.4-10.2); Carbon Dioxide 35 mmol/L (22-30); Chloride 99 mmol/L (98-107); Estimated CRCL calculation 35 ml/min; Estimated Glomerular Filt Rate 29; Glucose 101 mg/dL (65-110); Magnesium 2.1 mg/dL (1.6-2.3); Phosphorus 4.8 mg/dL (2.5-4.5); Potassium 4.4 mmol/L (3.4-5.0); Sodium 140 mmol/L (137-145)
[2021-08-19] MEDS: FLUTICASONE/UMECLIDIN/VILANTER 100-62.5-25 MCG ELLIPTA 1 PUFF INHALATION (10:43)
--- NOTE | 2021-08-19 11:10 | PM.IMPN ---
Progress Note: A&P Assessment and Plan (1) Septicemia: Code(s): A41.9 - Sepsis, unspecified organism Status: Acute Assessment and Plan: Patient developed sepsis like symptoms with tachycardia, leukocytosis, transient HoTN and altered mental status. She also developed acute kidney injury related to low blood pressure. She was having low-grade fevers so blood cultures obtained and she was started on cefepime and vancomycin. Blood cultures have returned positive today for Staph aureus. Sensitivities pending. Source is unclear. Her back pain actually is better but still would be concerned for diskitis or paraspinal process. Urine culture still pending. BP noted; resume Coreg if BP remains normal/high. If patient remains stable off BiPAP, consider MRI of her thoracic and lumbar spine. Continue vancomycin. Speech therapy to evaluate and treat. (2) Altered mental status: Code(s): R41.82 - Altered mental status, unspecified Status: Acute Assessment and Plan: Patient became encephalopathic related to septicemia. No obvious evidence of CVA and CT brain showing no acute findings. She wore her BiPAP all night With improvement the following day so consider CO2 narcosis as contributing factor. Ammonia level negative. Blood cultures as mentioned above. CT of the abdomen pelvis showing no acute findings to explain source of infection. During the time she was confused, she did complain of chest pain but troponin was negative x3. EKG showing no acute changes. He was unclear if this was an accurate complaint given her confusion. (3) KONRAD (acute kidney injury): Code(s): N17.9 - Acute kidney failure, unspecified Status: Acute Assessment and Plan: Patient's creatinine elevated to 1.3 on 08/12. Could be secondary to her being on the BiPAP constantly for the last 2 days and not being able to drink much. Her diuretics were held. Creatinine normalized to 1.0 with improved respiratory function and usual eating and drinking. Creatinine increased to 2.6 yesterday but better today at 1.7. It is felt acute kidney injury related to ATN. UA noted. Urine culture still pending. Urine sodium less than 5 to suggest dehydration as a component as well. She is currently on IV fluids. Will stop IV fluids once she is eating normally. (4) Acute and chronic respiratory failure with hypercapnia: Code(s): J96.22 - Acute and chronic respiratory failure with hypercapnia Status: Chronic Assessment and Plan: On admission, pCO2 was 89, she was hypoxic at 83% on 5 L via nasal cannula. CXR showed cardiomegaly with mild interstitial edema. Venous Dopplers showed no DVT. Lasix held and she was started the on IV fluids which corrected her contraction alkalosis. Patient still had hypercapnia so BiPAP was switched to AVAPS to increase the minute ventilation. Patient dd well. Pulmonology following and appreciate their input. More recently with the sepsis picture, patietn requiring BiPAP continuously. Wean BiPAP as tolerated. (5) COPD exacerbation: Code(s): J44.1 - Chronic obstructive pulmonary disease with (acute) exacerbation Status: Acute Assessment and Plan: No overt wheezing. Appreciate pulmonary input. Continue home medications. As above. (6) Hypokalemia: Code(s): E87.6 - Hypokalemia Status: Acute Assessment and Plan: Patient with hypokalemia at 2.7, elevated serum bicarb greater than 40 on admission. likely due to her home Lasix. Potassium was replaced. Potassium remains normal today. Continue to follow. (7) UTI (urinary tract infection): Code(s): N39.0 - Urinary tract infection, site not specified Status: Acute Assessment and Plan: UA showing 2+ blood, 11-20 red cells and 16-20 white cells. Negative leukocyte esterase and negative nitrates. Urine culture growing Enterococcus species 100 K that is sensitive to ampicillin.
[2021-08-19] MEDS: SODIUM CHLORIDE 0.9% IV 1,000 ML 60 ML IV CONT (13:21)
[2021-08-19 15:04] LABS: Hematocrit 34.3 % (37.0-47.0); Hemoglobin 10.1 g/dL (12.0-15.0)
[2021-08-19] MEDS: FERROUS SULFATE 324 MG TABLET PO (16:50)
[2021-08-19] MEDS: PENTOXIFYLLINE 400 MG TABCR PO (16:50)
[2021-08-19] MEDS: DICYCLOMINE HCL 10 MG CAPSULE 20 MG PO (16:50)
--- NOTE | 2021-08-19 17:25 | PCSTNOTE ---
Please refer to the Bedside Swallow Evaluation in the EMR. Please note, silent aspiration cannot be ruled out at bedside.
[2021-08-19] MEDS: ACETAMINOPHEN 500 MG TABLET PO (17:54)
[2021-08-19] MEDS: SIMVASTATIN 20 MG TABLET PO (20:53)
[2021-08-20] VITALS (18 sets, daily range): BP systolic 105–141; BP diastolic 55–95; PULSE 92–115; RESP 18–24; TEMP 35.6–36.6; O2SAT 94–100
[2021-08-20 06:21] LABS: Basophils Percent Auto 0.7 % (0.2-1.2); Eosinophils Absolute Auto 0.1 K/mm3 (0-0.3); Eosinophils Percent Auto 0.8 % (0-4.4); Hematocrit 33.4 % (37.0-47.0); Hemoglobin 9.9 g/dL (12.0-15.0); Immature Granulocyte Absolute 0.05 K/mm3 (0.00-0.031); Immature Granulocyte Percent A 0.8 % (0-0.5); Lymphocytes Absolute Auto 0.41 K/mm3 (0.9-3.2); Lymphocytes Percent Auto 6.7 % (18.3-44.2); Mean Corpuscular HGB Conc 29.6 g/dl (32-36); Mean Corpuscular Hemoglobin 31.8 pg (26-34); Mean Corpuscular Volume 107.4 fl (80-100); Mean Platelet Volume 12.4 fl (7.4-10.4); Monocytes Absolute Auto 0.5 K/mm3 (0.1-0.6); Monocytes Percent Auto 8.7 % (2.6-8.5); Neutrophils Percent Auto 82.3 % (45.5-73.1); Platelet Count Result 117 k/mm3 (150-375); Red Blood Count 3.11 M/mm3 (4.2-5.4); Red Cell Distribution Width 15.7 % (11.5-14.5); White Blood Count 6.1 K/mm3 (4.5-10.0)
[2021-08-20 06:39] LABS: Anion Gap 5 mmol/L (8-16); Blood Urea Nitrogen 41 mg/dL (7-17); Calcium 8.2 mg/dL (8.4-10.2); Carbon Dioxide 35 mmol/L (22-30); Chloride 100 mmol/L (98-107); Estimated CRCL calculation 63 ml/min; Estimated Glomerular Filt Rate > 60; Glucose 96 mg/dL (65-110); Potassium 3.9 mmol/L (3.4-5.0); Sodium 140 mmol/L (137-145)
[2021-08-20] MEDS: SODIUM CHLORIDE 0.9% IV 1,000 ML 60 ML IV CONT (06:44)
[2021-08-20] MEDS: LEVOTHYROXINE SODIUM 125 MCG TABLET PO (06:46)
[2021-08-20] MEDS: DICYCLOMINE HCL 10 MG CAPSULE 20 MG PO ×2 (08:51→18:17)
[2021-08-20] MEDS: MAGNESIUM OXIDE 400 MG TABLET PO (08:51)
[2021-08-20] MEDS: SERTRALINE HCL 25 MG TABLET PO (08:51)
[2021-08-20] MEDS: PANTOPRAZOLE 40 MG TABLET PO (08:52)
[2021-08-20] MEDS: FERROUS SULFATE 324 MG TABLET PO ×2 (08:52→18:17)
[2021-08-20] MEDS: CHOLECALCIFEROL 1,000 UNITS TABLET 1000 UNITS PO (08:52)
[2021-08-20] MEDS: PENTOXIFYLLINE 400 MG TABCR PO ×2 (08:52→18:18)
--- NOTE | 2021-08-20 09:01 | PM.IMPN ---
Progress Note: A&P Assessment and Plan (1) Septicemia: Code(s): A41.9 - Sepsis, unspecified organism Status: Acute Assessment and Plan: Currently she is on vancomycin and cefepime. Will repeat blood cultures tomorrow again. Continue to monitor CBC and electrolytes.. (2) Altered mental status: Code(s): R41.82 - Altered mental status, unspecified Status: Acute Assessment and Plan: Altered mental status has resolved today. Patient is more awake and alert. (3) KONRAD (acute kidney injury): Code(s): N17.9 - Acute kidney failure, unspecified Status: Acute Assessment and Plan: Patient's creatinine elevated to 1.3 on 08/12. Could be secondary to her being on the BiPAP constantly for the last 2 days and not being able to drink much. Her diuretics were held. Creatinine normalized to 1.0 with improved respiratory function and usual eating and drinking. Creatinine increased to 2.6 yesterday but better today at 1.7. It is felt acute kidney injury related to ATN. UA noted. Urine culture still pending. Urine sodium less than 5 to suggest dehydration as a component as well. She is currently on IV fluids. Will stop IV fluids once she is eating normally. Creatinine is getting better. Will continue to monitor. (4) Acute and chronic respiratory failure with hypercapnia: Code(s): J96.22 - Acute and chronic respiratory failure with hypercapnia Status: Chronic Assessment and Plan: On admission, pCO2 was 89, she was hypoxic at 83% on 5 L via nasal cannula. CXR showed cardiomegaly with mild interstitial edema. Venous Dopplers showed no DVT. Lasix held and she was started the on IV fluids which corrected her contraction alkalosis. Patient still had hypercapnia so BiPAP was switched to AVAPS to increase the minute ventilation. Patient dd well. Pulmonology following and appreciate their input. More recently with the sepsis picture, patietn requiring BiPAP continuously. Wean BiPAP as tolerated. (5) COPD exacerbation: Code(s): J44.1 - Chronic obstructive pulmonary disease with (acute) exacerbation Status: Acute Assessment and Plan: No overt wheezing. Appreciate pulmonary input. Continue home medications. As above. (6) Hypokalemia: Code(s): E87.6 - Hypokalemia Status: Acute Assessment and Plan: Patient with hypokalemia at 2.7, elevated serum bicarb greater than 40 on admission. likely due to her home Lasix. Potassium was replaced. Potassium remains normal today. Continue to follow. (7) UTI (urinary tract infection): Code(s): N39.0 - Urinary tract infection, site not specified Status: Acute Assessment and Plan: UA showing 2+ blood, 11-20 red cells and 16-20 white cells. Negative leukocyte esterase and negative nitrates. Urine culture growing Enterococcus species 100 K that is sensitive to ampicillin. Her Khan catheter has been exchanged already. Continue Vanco. (8) Unresponsive: Code(s): R41.89 - Other symptoms and signs involving cognitive functions and awareness Status: Acute Assessment and Plan: She is awake and alert and able to answer all the questions. (9) Atrial fibrillation: Qualifiers: Atrial fibrillation type: unspecified Qualified Code(s): I48.91 - Unspecified atrial fibrillation Code(s): I48.91 - Unspecified atrial fibrillation Status: Chronic Assessment and Plan: Patient with chronic atrial fibrillation. Heart rate was well controlled with Coreg. Coreg held due to the HoTN. Resume Coreg as blood pressure tolerates. Will also start Xarelto. (10) Congestive heart failure (CHF): Qualifiers: Heart failure type: unspecified Heart failure chronicity: chronic Qualified Code(s): I50.9 - Heart failure, unspecified Code(s): I50.9 - Heart failure, unspecified Status: Chronic Assessment and Plan:
[2021-08-20] MEDS: FLUTICASONE/UMECLIDIN/VILANTER 100-62.5-25 MCG ELLIPTA 1 PUFF INHALATION (09:06)
[2021-08-20 15:53] LABS: Vancomycin Trough 9.8 ug/mL (10.0-20.0)
--- NOTE | 2021-08-20 16:07 | PCPTNOTE ---
Attempted reassessment this pm, however pt unable to participate in therapy task due to pain and falling asleep. Will attempt on 08/21/21.
[2021-08-20] MEDS: ACETAMINOPHEN 500 MG TABLET PO (18:46)
[2021-08-20] MEDS: SIMVASTATIN 20 MG TABLET PO (20:50)
[2021-08-21] VITALS (19 sets, daily range): BP systolic 122–150; BP diastolic 68–87; PULSE 86–147; RESP 16–24; TEMP 35.8–36.8; O2SAT 91–99; BMI 43.4
[2021-08-21] MEDS: ACETAMINOPHEN 500 MG TABLET PO (02:24)
[2021-08-21] MEDS: SODIUM CHLORIDE 0.9% IV 1,000 ML 60 ML IV CONT ×2 (02:27→20:53)
[2021-08-21 05:31] LABS: Basophils Percent Auto 0.4 % (0.2-1.2); Eosinophils Percent Auto 0.4 % (0-4.4); Hematocrit 30.7 % (37.0-47.0); Hemoglobin 9.4 g/dL (12.0-15.0); Immature Granulocyte Absolute 0.02 K/mm3 (0.00-0.031); Immature Granulocyte Percent A 0.4 % (0-0.5); Lymphocytes Absolute Auto 0.49 K/mm3 (0.9-3.2); Lymphocytes Percent Auto 8.8 % (18.3-44.2); Mean Corpuscular HGB Conc 30.6 g/dl (32-36); Mean Corpuscular Hemoglobin 31.9 pg (26-34); Mean Corpuscular Volume 104.1 fl (80-100); Mean Platelet Volume 12.3 fl (7.4-10.4); Monocytes Absolute Auto 0.7 K/mm3 (0.1-0.6); Monocytes Percent Auto 11.8 % (2.6-8.5); Neutrophils Absolute Auto 4.4 K/mm3 (1.3-6.7); Neutrophils Percent Auto 78.2 % (45.5-73.1); Platelet Count Result 137 k/mm3 (150-375); Red Blood Count 2.95 M/mm3 (4.2-5.4); Red Cell Distribution Width 15.7 % (11.5-14.5); White Blood Count 5.6 K/mm3 (4.5-10.0)
[2021-08-21 05:35] LABS: Base Excess ABG 6.7 mEq/l (+/-2.0); Fractional Inspired Oxygen 35 %; HCO3 ABG 33.4 mEq/l (22.0-26.0); Oxygen Content ABG 15.7 %vol (16.0-22.0); Oxygen Saturation ABG 96.9 % (95.0-100.0); Oxyhemoglobin 96.2 % THb (90.0-100.0); PCO2 ABG 58.9 mmHg (35.0-45.0); PO2 ABG 95.1 mmHg (80.0-100.0); PO2 FiO2 Ratio Arterial Blood 2.72 %; Total Hemoglobin 11.5 g/dL (12.0-18.0); pH ABG 7.372 (7.350-7.450)
[2021-08-21 05:37] LABS: Device NON-INVASIVE VENT; Modified Allen's Test Pass; Site Drawn LEFT RADIAL
[2021-08-21 05:38] LABS: Non-Invasive Expiratory Pressure 6 CMH2O; Non-Invasive Inspiratory Pressure 30 CMH2O; Non-Invasive Vent Rate 16 /MIN
[2021-08-21 05:51] LABS: Alanine Aminotransferase 20 U/L (4-35); Albumin Level 3.2 g/dL (3.5-5.1); Alkaline Phosphatase 101 U/L (38-126); Anion Gap 6 mmol/L (8-16); Aspartate Amino Transferase 26 U/L (14-36); Bilirubin,Total 0.3 mg/dL (0.2-1.3); Blood Urea Nitrogen 31 mg/dL (7-17); Calcium 8.5 mg/dL (8.4-10.2); Carbon Dioxide 33 mmol/L (22-30); Chloride 102 mmol/L (98-107); Estimated CRCL calculation 64 ml/min; Estimated Glomerular Filt Rate > 60; Glucose 97 mg/dL (65-110); Potassium 3.4 mmol/L (3.4-5.0); Sodium 141 mmol/L (137-145)
[2021-08-21] MEDS: LEVOTHYROXINE SODIUM 125 MCG TABLET PO (06:44)
[2021-08-21] MEDS: FLUTICASONE/UMECLIDIN/VILANTER 100-62.5-25 MCG ELLIPTA 1 PUFF INHALATION (08:36)
--- NOTE | 2021-08-21 08:52 | PCPTNOTE ---
attempted therapy, but refused due to severe pain. Will attempt this PM.
[2021-08-21] MEDS: DICYCLOMINE HCL 10 MG CAPSULE 20 MG PO ×2 (09:54→18:04)
[2021-08-21] MEDS: SERTRALINE HCL 25 MG TABLET PO (09:54)
[2021-08-21] MEDS: FERROUS SULFATE 324 MG TABLET PO ×2 (09:54→18:05)
[2021-08-21] MEDS: PANTOPRAZOLE 40 MG TABLET PO (09:54)
[2021-08-21] MEDS: PENTOXIFYLLINE 400 MG TABCR PO ×2 (09:54→18:05)
[2021-08-21] MEDS: CHOLECALCIFEROL 1,000 UNITS TABLET 1000 UNITS PO (09:54)
[2021-08-21] MEDS: MAGNESIUM OXIDE 400 MG TABLET PO (09:54)
--- NOTE | 2021-08-21 13:29 | PM.IMPN ---
Progress Note: A&P Assessment and Plan (1) Septicemia: Code(s): A41.9 - Sepsis, unspecified organism Status: Acute Assessment and Plan: Currently she is on vancomycin and cefepime. Will repeat blood cultures tomorrow again. Continue to monitor CBC and electrolytes.. (2) Altered mental status: Code(s): R41.82 - Altered mental status, unspecified Status: Acute Assessment and Plan: Altered mental status has resolved today. Patient is more awake and alert. (3) KONRAD (acute kidney injury): Code(s): N17.9 - Acute kidney failure, unspecified Status: Acute Assessment and Plan: He acute nonoliguric acute kidney injury creatinine improving from 1.7-0.9. . It is felt acute kidney injury related to ATN. UA noted. Urine culture still pending. Urine sodium less than 5 to suggest dehydration as a component as well. She is currently on IV fluids. (4) Acute and chronic respiratory failure with hypercapnia: Code(s): J96.22 - Acute and chronic respiratory failure with hypercapnia Status: Chronic Assessment and Plan: Improvement of gas exchanges with pCO2 of 58.9 this morning. On admission, pCO2 was 89, she was hypoxic at 83% on 5 L via nasal cannula. CXR showed cardiomegaly with mild interstitial edema. Venous Dopplers showed no DVT. Lasix held and she was started the on IV fluids which corrected her contraction alkalosis. Patient still had hypercapnia so BiPAP was switched to AVAPS to increase the minute ventilation. Patient dd well. Pulmonology following and appreciate their input. More recently with the sepsis picture, patient requiring BiPAP continuously. Wean BiPAP as tolerated. Encourage BiPAP at night and with naps. (5) COPD exacerbation: Code(s): J44.1 - Chronic obstructive pulmonary disease with (acute) exacerbation Status: Acute Assessment and Plan: No overt wheezing. Appreciate pulmonary input. Continue home medications. As above. (6) Hypokalemia: Code(s): E87.6 - Hypokalemia Status: Acute Assessment and Plan: Hypokalemia resolved with a potassium of 2.4 today (7) UTI (urinary tract infection): Code(s): N39.0 - Urinary tract infection, site not specified Status: Acute Assessment and Plan: UA showing 2+ blood, 11-20 red cells and 16-20 white cells. Negative leukocyte esterase and negative nitrates. Urine culture growing Enterococcus species 100 K that is sensitive to ampicillin. Her Khan catheter has been exchanged already. Continue Vanco. (8) Unresponsive: Code(s): R41.89 - Other symptoms and signs involving cognitive functions and awareness Status: Acute Assessment and Plan: She is awake and alert and able to answer all the questions. (9) Atrial fibrillation: Qualifiers: Atrial fibrillation type: unspecified Qualified Code(s): I48.91 - Unspecified atrial fibrillation Code(s): I48.91 - Unspecified atrial fibrillation Status: Chronic Assessment and Plan: Patient with chronic atrial fibrillation. Heart rate was well controlled with Coreg. Coreg held due to the HoTN. Resume Coreg as blood pressure tolerates. Will also start Xarelto. (10) Congestive heart failure (CHF): Qualifiers: Heart failure type: unspecified Heart failure chronicity: chronic Qualified Code(s): I50.9 - Heart failure, unspecified Code(s): I50.9 - Heart failure, unspecified Status: Chronic Assessment and Plan: History of systolic congestive heart failure But last echocardiogram in August showing EF of 60-65% and abnormal diastolic function. Lasix was on hold for alkalosis but then resumed. She was on Entresto, Coreg and Lasix 40 mg daily but held due to KONRAD and HoTN. Resume medications as tolerated. (11) Macrocytic anemia: Code(s): D53.9 - Nutritional anemia, unspecified Status: Acute
[2021-08-21] MEDS: PREGABALIN (*CRX) 50 MG CAPSULE 200 MG PO (18:04)
[2021-08-21] MEDS: METOPROLOL TARTRATE INJ 5 MG/5 ML VIAL IV PUSH (18:50)
[2021-08-21] MEDS: SIMVASTATIN 20 MG TABLET PO (20:53)
[2021-08-22] VITALS (18 sets, daily range): BP systolic 123–139; BP diastolic 57–82; PULSE 77–145; RESP 16–22; TEMP 36–36.8; O2SAT 92–98; BMI 10.0
[2021-08-22 05:45] LABS: Alveolar/Arterial O2 Gradient 129.7 mmHg; Fractional Inspired Oxygen 40 %; HCO3 ABG 32.5 mEq/l (22.0-26.0); Oxygen Content ABG 18.6 %vol (16.0-22.0); Oxygen Saturation ABG 95.8 % (95.0-100.0); Oxyhemoglobin 95.5 % THb (90.0-100.0); PO2 ABG 85.8 mmHg (80.0-100.0); PO2 FiO2 Ratio Arterial Blood 2.14 %; Total Hemoglobin 13.8 g/dL (12.0-18.0); pH ABG 7.347 (7.350-7.450)
[2021-08-22 05:46] LABS: Modified Allen's Test Pass; PCO2 ABG 60.6 mmHg (35.0-45.0); Site Drawn RIGHT RADIAL
[2021-08-22 05:47] LABS: Device NON-INVASIVE VENT
[2021-08-22 05:48] LABS: Non-Invasive Expiratory Pressure 12 CMH2O; Non-Invasive Inspiratory Pressure 22 CMH2O; Non-Invasive Vent Rate 16 /MIN
[2021-08-22] MEDS: LEVOTHYROXINE SODIUM 125 MCG TABLET PO (05:53)
[2021-08-22] MEDS: CHOLECALCIFEROL 1,000 UNITS TABLET 1000 UNITS PO (09:49)
[2021-08-22] MEDS: SERTRALINE HCL 25 MG TABLET PO (09:49)
[2021-08-22] MEDS: PANTOPRAZOLE 40 MG TABLET PO (09:49)
[2021-08-22] MEDS: DICYCLOMINE HCL 10 MG CAPSULE 20 MG PO ×2 (09:49→17:42)
[2021-08-22] MEDS: FERROUS SULFATE 324 MG TABLET PO ×2 (09:49→17:42)
[2021-08-22] MEDS: PENTOXIFYLLINE 400 MG TABCR PO ×2 (09:49→17:42)
[2021-08-22] MEDS: MAGNESIUM OXIDE 400 MG TABLET PO (09:49)
--- NOTE | 2021-08-22 10:12 | PCOTNOTE ---
Attempted to see patient this AM at 10:12, patient currently with PT.
--- NOTE | 2021-08-22 10:25 | PCPTNOTE ---
Attempted PT re-evaluation this date patient refused this AM will try again later.
[2021-08-22 10:58] LABS: Hematocrit 34.5 % (37.0-47.0); Hemoglobin 10.4 g/dL (12.0-15.0); Mean Corpuscular HGB Conc 30.1 g/dl (32-36); Mean Corpuscular Hemoglobin 31.8 pg (26-34); Mean Corpuscular Volume 105.5 fl (80-100); Mean Platelet Volume 11.6 fl (7.4-10.4); Platelet Count Result 160 k/mm3 (150-375); Red Blood Count 3.27 M/mm3 (4.2-5.4); Red Cell Distribution Width 16.1 % (11.5-14.5); White Blood Count 6.5 K/mm3 (4.5-10.0)
[2021-08-22 11:02] LABS: Anion Gap 5 mmol/L (8-16); Blood Urea Nitrogen 27 mg/dL (7-17); Calcium 8.6 mg/dL (8.4-10.2); Carbon Dioxide 34 mmol/L (22-30); Chloride 102 mmol/L (98-107); Estimated CRCL calculation 71 ml/min; Estimated Glomerular Filt Rate > 60; Glucose 103 mg/dL (65-110); Potassium 3.5 mmol/L (3.4-5.0); Sodium 141 mmol/L (137-145)
--- NOTE | 2021-08-22 11:18 | PCOTNOTE ---
Attempted patient for second attempt this date. Patient declined OT this date stated I dont want to be negative but I just cant today. Attempted to educate pt. on benefits of OT, pt. continued to decline.
[2021-08-22] MEDS: PREGABALIN (*CRX) 50 MG CAPSULE PO ×2 (11:25→20:21)
--- NOTE | 2021-08-22 11:37 | PC.NURSE ---
This patient, Valorie Harris, was received from imu on 08/22/21 at 1137. Patient/family oriented to unit policies and routines
--- NOTE | 2021-08-22 11:40 | PC.NURSE ---
This patient, Valorie Harris, was transferred to [facility] on 08/22/21 at 1140. Personal belongings sent with patient. Report given to LASHONDA Rico. Appropriate documentation sent with patient.
--- NOTE | 2021-08-22 12:29 | PM.IMPN ---
Progress Note: A&P Assessment and Plan (1) Septicemia: Code(s): A41.9 - Sepsis, unspecified organism Status: Acute Assessment and Plan: Currently she is on vancomycin and cefepime. Blood cultures without growth. We will discontinue the IV antibiotics. Continue to monitor CBC and electrolytes.. (2) Altered mental status: Code(s): R41.82 - Altered mental status, unspecified Status: Acute Assessment and Plan: Altered mental status has resolved today. Patient is more awake and alert. Patient appears to be back to her baseline. (3) KONRAD (acute kidney injury): Code(s): N17.9 - Acute kidney failure, unspecified Status: Acute Assessment and Plan: He acute nonoliguric acute kidney injury creatinine improving from 1.7-0.9. . It is felt to be an acute kidney injury related to ATN. UA noted. Urine culture still pending. Urine sodium less than 5 to suggest dehydration as a component as well. She is currently on IV fluids. (4) Acute and chronic respiratory failure with hypercapnia: Code(s): J96.22 - Acute and chronic respiratory failure with hypercapnia Status: Chronic Assessment and Plan: Improvement of gas exchanges with pCO2 of 58.9 this morning. On admission, pCO2 was 89, she was hypoxic at 83% on 5 L via nasal cannula. CXR showed cardiomegaly with mild interstitial edema. Venous Dopplers showed no DVT. Lasix held and she was started the on IV fluids which corrected her contraction alkalosis. Patient still had hypercapnia so BiPAP was switched to AVAPS to increase the minute ventilation. Patient dd well. Pulmonology following and appreciate their input. More recently with the sepsis picture, patient requiring BiPAP continuously. Wean BiPAP as tolerated. Encourage BiPAP at night and with naps. (5) COPD exacerbation: Code(s): J44.1 - Chronic obstructive pulmonary disease with (acute) exacerbation Status: Acute Assessment and Plan: No overt wheezing. Appreciate pulmonary input. Continue home medications. As above. (6) Hypokalemia: Code(s): E87.6 - Hypokalemia Status: Acute Assessment and Plan: Hypokalemia resolved with a potassium of 2.4 today (7) UTI (urinary tract infection): Code(s): N39.0 - Urinary tract infection, site not specified Status: Acute Assessment and Plan: UA showing 2+ blood, 11-20 red cells and 16-20 white cells. Negative leukocyte esterase and negative nitrates. Urine culture growing Enterococcus species 100 K that is sensitive to ampicillin. Her Khan catheter has been exchanged already. Continue Vanco. (8) Unresponsive: Code(s): R41.89 - Other symptoms and signs involving cognitive functions and awareness Status: Acute Assessment and Plan: She is awake and alert and able to answer all the questions. (9) Atrial fibrillation: Qualifiers: Atrial fibrillation type: unspecified Qualified Code(s): I48.91 - Unspecified atrial fibrillation Code(s): I48.91 - Unspecified atrial fibrillation Status: Chronic Assessment and Plan: Patient with chronic atrial fibrillation. Heart rate was well controlled with Coreg. Coreg held due to the HoTN. Resume Coreg as blood pressure tolerates. Will also start Xarelto. (10) Congestive heart failure (CHF): Qualifiers: Heart failure type: unspecified Heart failure chronicity: chronic Qualified Code(s): I50.9 - Heart failure, unspecified Code(s): I50.9 - Heart failure, unspecified Status: Chronic Assessment and Plan: History of systolic congestive heart failure But last echocardiogram in August showing EF of 60-65% and abnormal diastolic function. Lasix was on hold for alkalosis but then resumed. She was on Entresto, Coreg and Lasix 40 mg daily but held due to KONRAD and HoTN. Resume medications as tolerated. (11) Macrocytic anemia
--- NOTE | 2021-08-22 13:48 | PCRCNOTE ---
Window of time for administration has passed. See next scheduled administration.
[2021-08-22] MEDS: SODIUM CHLORIDE 0.9% IV 1,000 ML 60 ML IV CONT (14:45)
--- NOTE | 2021-08-22 16:14 | PC.NURSE ---
Dr Harris notified of heart rate afib in 140's, lopressor iv prn ordered
[2021-08-22] MEDS: METOPROLOL TARTRATE INJ 5 MG/5 ML VIAL IV PUSH ×2 (16:20→21:55)
[2021-08-22] MEDS: RIVAROXABAN 20 MG TABLET PO (17:42)
[2021-08-22] MEDS: SIMVASTATIN 20 MG TABLET PO (20:21)
[2021-08-22] MEDS: carvediloL 3.125 MG TABLET PO (22:26)
[2021-08-23] VITALS (15 sets, daily range): BP systolic 117–138; BP diastolic 57–103; PULSE 90–122; RESP 18–24; TEMP 36–37.7; O2SAT 90–98
[2021-08-23] MEDS: LEVOTHYROXINE SODIUM 125 MCG TABLET PO (06:12)
[2021-08-23] MEDS: FLUTICASONE/UMECLIDIN/VILANTER 100-62.5-25 MCG ELLIPTA 1 PUFF INHALATION (08:48)
[2021-08-23] MEDS: carvediloL 3.125 MG TABLET PO (09:49)
[2021-08-23] MEDS: DICYCLOMINE HCL 10 MG CAPSULE 20 MG PO ×2 (09:49→16:27)
[2021-08-23] MEDS: FERROUS SULFATE 324 MG TABLET PO ×2 (09:49→16:28)
[2021-08-23] MEDS: CHOLECALCIFEROL 1,000 UNITS TABLET 1000 UNITS PO (09:49)
[2021-08-23] MEDS: MAGNESIUM OXIDE 400 MG TABLET PO (09:49)
[2021-08-23] MEDS: PANTOPRAZOLE 40 MG TABLET PO (09:50)
[2021-08-23] MEDS: PENTOXIFYLLINE 400 MG TABCR PO ×2 (09:50→16:28)
[2021-08-23] MEDS: PREGABALIN (*CRX) 50 MG CAPSULE PO ×2 (09:52→20:38)
[2021-08-23] MEDS: SERTRALINE HCL 25 MG TABLET PO (10:03)
--- NOTE | 2021-08-23 10:30 | PM.IMPN ---
Progress Note: A&P Assessment and Plan (1) COVID-19: Code(s): U07.1 - COVID-19 Status: Acute Assessment and Plan: Patient tested positive on rapid COVID test today. PCR was sent. Patient started on remdesivir and exam it was 1 pending confirmation due to her significant comorbidities. (2) Septicemia: Code(s): A41.9 - Sepsis, unspecified organism Status: Acute Assessment and Plan: Currently she is on vancomycin and cefepime. Blood cultures without growth. We will discontinue the IV antibiotics. Continue to monitor CBC and electrolytes.. (3) Altered mental status: Code(s): R41.82 - Altered mental status, unspecified Status: Acute Assessment and Plan: Altered mental status has resolved today. Patient is more awake and alert. Patient appears to be back to her baseline. (4) KONRAD (acute kidney injury): Code(s): N17.9 - Acute kidney failure, unspecified Status: Acute Assessment and Plan: Resolved acute nonoliguric acute kidney injury creatinine improving from 0.9->0.7. It is felt to be an acute kidney injury related to ATN. UA noted. Urine culture negative to date. Urine sodium less than 5 to suggest dehydration as a component as well. She is currently on IV fluids. (5) Acute and chronic respiratory failure with hypercapnia: Code(s): J96.22 - Acute and chronic respiratory failure with hypercapnia Status: Chronic Assessment and Plan: Patient wore hospital BiPAP rate of 16, pressure is 22/12 and 40% and had a blood gas at the end of the night with a pH of 7.35/61/86. Patient had an overnight oximetry on these settings with an average saturation of 95%. If she goes to a facility that can only manage BiPAP she should use: BiPAP rate of 16, pressure is 22/12 and 5 L bleed in. (6) COPD exacerbation: Code(s): J44.1 - Chronic obstructive pulmonary disease with (acute) exacerbation Status: Acute Assessment and Plan: No overt wheezing. Appreciate pulmonary input. Continue home medications. As above. (7) Hypokalemia: Code(s): E87.6 - Hypokalemia Status: Acute Assessment and Plan: Hypokalemia resolved with a potassium of 3.5 today (8) UTI (urinary tract infection): Code(s): N39.0 - Urinary tract infection, site not specified Status: Acute Assessment and Plan: UA showing 2+ blood, 11-20 red cells and 16-20 white cells. Negative leukocyte esterase and negative nitrates. Urine culture growing Enterococcus species 100 K that is sensitive to ampicillin. Her Khan catheter has been exchanged already. Continue Vanco. (9) Unresponsive: Code(s): R41.89 - Other symptoms and signs involving cognitive functions and awareness Status: Acute Assessment and Plan: She is awake and alert and able to answer all the questions. (10) Atrial fibrillation: Qualifiers: Atrial fibrillation type: unspecified Qualified Code(s): I48.91 - Unspecified atrial fibrillation Code(s): I48.91 - Unspecified atrial fibrillation Status: Chronic Assessment and Plan: Patient with chronic atrial fibrillation. Heart rate was well controlled with Coreg. Coreg held due to the HoTN. Resume Coreg as blood pressure tolerates. Will also start Xarelto. (11) Congestive heart failure (CHF): Qualifiers: Heart failure type: unspecified Heart failure chronicity: chronic Qualified Code(s): I50.9 - Heart failure, unspecified Code(s): I50.9 - Heart failure, unspecified Status: Chronic Assessment and Plan: History of systolic congestive heart failure But last echocardiogram in August showing EF of 60-65% and abnormal diastolic function. Lasix was on hold for alkalosis but then resumed. She was on Entresto, Coreg and Lasix 40 mg daily but held due to KONRAD and HoTN. Resume medications as tolerated. (12) Mc
--- NOTE | 2021-08-23 11:47 | PM.CNCAR ---
Assessment and Plan Assessment and plan (1) Longstanding persistent atrial fibrillation: Code(s): I48.11 - Longstanding persistent atrial fibrillation Status: Acute Assessment and Plan: Per available records appears to be longstanding. Developed RVR while off AV lonnie blocking agents. She was on Coreg as an outpatient. BB therapy has been restarted with Metoprolol in favor of Coreg. This is reasonable given documentation of preserved LV systolic function, less likely to drop BP and potentially improved HR control of her AF over Coreg. Will increase Metoprolol to 50 mg twice daily as BP permits. Will give an additional Metoprolol 25 mg p.o. x1 now as her heart rate remains suboptimally controlled. Xarelto has been restarted. Ensure adequate heart rate control prior to discharge. Follow up with her Feed Inspection Supervisor in 1-2 weeks post discharge. (2) Chronic heart failure with preserved ejection fraction (HFpEF): Code(s): I50.32 - Chronic diastolic (congestive) heart failure Status: Acute Assessment and Plan: Reports indicate EF 60-65% by echocardiogram August 2020. She follows with [facility] and vascular Dr. Shi as an outpatient. I do not have any of her other cardiovascular records for further details corroboration of her history. She was on Entresto 24/26 mg p.o. b.i.d. admission which was discontinued secondary to hypotension, sepsis, acute renal failure and altered mental status. Other these have resolved I see no reason cannot resume Entresto. May resume at 12/13 mg twice daily with additional caution to be further managed by her stock broker supervisor as an outpatient. I see no reason why her Lasix cannot be resumed upon discharge provided she is eating and drinking well. I will defer this to the hospitalist service who been managing her throughout this hospitalization. Her renal function has normalized as has her BP. Patient appears to be fairly euvolemic. Circumstances at presentation prompting discontinuation of her medications appear to resolved. As we do not follow this patient nor no already history defer further significant changes in her medical regimen to her primary stock broker supervisor as an outpatient. Disposition per hospitalist service. (3) Acute and chronic respiratory failure with hypercapnia: Code(s): J96.22 - Acute and chronic respiratory failure with hypercapnia Status: Chronic Assessment and Plan: Per primary service. (4) KONRAD (acute kidney injury): Code(s): N17.9 - Acute kidney failure, unspecified Status: Acute Assessment and Plan: Resolved. (5) Septicemia: Code(s): A41.9 - Sepsis, unspecified organism Status: Acute Assessment and Plan: Resolved. Per primary service. Antibiotics as warranted (6) COPD (chronic obstructive pulmonary disease): Qualifiers: COPD type: unspecified COPD Qualified Code(s): J44.9 - Chronic obstructive pulmonary disease, unspecified Code(s): J44.9 - Chronic obstructive pulmonary disease, unspecified Status: Chronic Assessment and Plan: Per pulmonology and primary service. History of Present Illness History of Present Illness Consult date/time: Date of service: 08/23/21 11:47 Cardiology consultation at the request of Dr. Harris for our opinion regarding cardiovascular medical management including history of CHF in atrial fibrillation Requesting physician: Gerda Harris MD Consult reason: Other (Medical management for history of CHF in atrial fibrillation) Reason For Visit: Acute Hypokalemia, COPD, CHF, Atrial Fib Narrative: Patient is a 76-year-old female with a past medical history significant for COPD, chronic respiratory failure with hypercapnia on BiPAP, chronic O2 in a, noncompliance with noninvasive positive-pressure ventilation, history of chronic heart failure with preserved ejection fraction (EF 60-65% reported 08/2020) on Entresto and Lasix with presumed
[2021-08-23] MEDS: LIDOCAINE 5% PATCH 1 PATCH TRANSDERM (11:52)
[2021-08-23] MEDS: POTASSIUM CHLORIDE 20 MEQ PACKET (FOR LIQUID) PO (11:55)
[2021-08-23 12:14] LABS: EDCOVIDSCREEN Positive (Negative)
[2021-08-23 13:04] LABS: Alanine Aminotransferase 16 U/L (4-35); Estimated CRCL calculation 82 ml/min; Estimated Glomerular Filt Rate > 60
[2021-08-23 13:18] LABS: INR 1.8; Prothrombin Time 20.4 Seconds (11.1-14.7)
[2021-08-23] MEDS: METOPROLOL TARTRATE 25 MG TABLET PO (14:40)
[2021-08-23] MEDS: REMDESIVIR 200 MG/NS 250 ML 200 MG/250 ML BAG 125 MG IVPB (14:48)
[2021-08-23] MEDS: SODIUM CHLORIDE 0.9% IV 1,000 ML 60 ML IV CONT (14:48)
[2021-08-23] MEDS: DEXAMETHASONE 2 MG TABLET 6 MG PO (16:27)
[2021-08-23] MEDS: RIVAROXABAN 20 MG TABLET PO (16:28)
[2021-08-23 17:59] LABS: Complement Total CH50 57 U/mL (31-60)
--- NOTE | 2021-08-23 18:04 | PC.NURSE ---
This patient, Valorie Harris, was received from [2 med] on 08/23/21 at 1805. Patient/family oriented to unit policies and routines
[2021-08-23 18:12] LABS: Vancomycin Trough 10.5 ug/mL (10.0-20.0)
[2021-08-23] MEDS: METOPROLOL TARTRATE 50 MG TAB PO (20:33)
[2021-08-23] MEDS: SACUBITRIL/VALSARTAN 12-13 MG TABLET 1 TAB PO (20:34)
[2021-08-23] MEDS: SIMVASTATIN 20 MG TABLET PO (20:34)
[2021-08-23] MEDS: ACETAMINOPHEN 500 MG TABLET PO (20:38)
[2021-08-24] VITALS (15 sets, daily range): BP systolic 115–145; BP diastolic 57–85; PULSE 68–110; RESP 16–19; TEMP 36.1–37.4; O2SAT 92–97
[2021-08-24] MEDS: LEVOTHYROXINE SODIUM 125 MCG TABLET PO (07:34)
[2021-08-24] MEDS: FLUTICASONE/UMECLIDIN/VILANTER 100-62.5-25 MCG ELLIPTA 1 PUFF INHALATION (07:59)
--- NOTE | 2021-08-24 08:55 | PM.IMPN ---
Progress Note: A&P Assessment and Plan (1) COVID-19: Code(s): U07.1 - COVID-19 Status: Acute Assessment and Plan: Patient tested positive on rapid COVID test today. PCR was sent. Patient started on remdesivir and exam it was 1 pending confirmation due to her significant comorbidities. Follow-up PCR. (2) Septicemia: Code(s): A41.9 - Sepsis, unspecified organism Status: Acute Assessment and Plan: Blood cultures without growth. Antibiotics were stopped Continue to monitor CBC and electrolytes.. (3) Altered mental status: Code(s): R41.82 - Altered mental status, unspecified Status: Acute Assessment and Plan: Altered mental status; patient appears more drowsy and lethargic today. Hold Lyrica. (4) KONRAD (acute kidney injury): Code(s): N17.9 - Acute kidney failure, unspecified Status: Acute Assessment and Plan: Resolved acute nonoliguric acute kidney injury creatinine improving from 0.9->0.7. It is felt to be an acute kidney injury related to ATN. UA noted. Urine culture negative to date. Urine sodium less than 5 to suggest dehydration as a component as well. She is currently on IV fluids. (5) Acute and chronic respiratory failure with hypercapnia: Code(s): J96.22 - Acute and chronic respiratory failure with hypercapnia Status: Chronic Assessment and Plan: Patient wore hospital BiPAP rate of 16, pressure is 22/12 and 40% and had a blood gas at the end of the night with a pH of 7.35/61/86. Patient had an overnight oximetry on these settings with an average saturation of 95%. If she goes to a facility that can only manage BiPAP she should use: BiPAP rate of 16, pressure is 22/12 and 5 L bleed in. (6) COPD exacerbation: Code(s): J44.1 - Chronic obstructive pulmonary disease with (acute) exacerbation Status: Acute Assessment and Plan: No overt wheezing. Appreciate pulmonary input. Continue home medications. As above. (7) Hypokalemia: Code(s): E87.6 - Hypokalemia Status: Acute Assessment and Plan: Hypokalemia resolved with a potassium of 3.5 today (8) UTI (urinary tract infection): Code(s): N39.0 - Urinary tract infection, site not specified Status: Acute Assessment and Plan: UA showing 2+ blood, 11-20 red cells and 16-20 white cells. Negative leukocyte esterase and negative nitrates. Urine culture growing Enterococcus species 100 K that is sensitive to ampicillin. Her Khan catheter has been exchanged already. Continue Vanco. (9) Unresponsive: Code(s): R41.89 - Other symptoms and signs involving cognitive functions and awareness Status: Acute Assessment and Plan: She is awake and alert and able to answer all the questions. (10) Atrial fibrillation: Qualifiers: Atrial fibrillation type: unspecified Qualified Code(s): I48.91 - Unspecified atrial fibrillation Code(s): I48.91 - Unspecified atrial fibrillation Status: Chronic Assessment and Plan: Patient with chronic atrial fibrillation. Heart rate was well controlled with Coreg. Coreg held due to the HoTN. Resume Coreg as blood pressure tolerates. Continue Xarelto. (11) Congestive heart failure (CHF): Qualifiers: Heart failure type: unspecified Heart failure chronicity: chronic Qualified Code(s): I50.9 - Heart failure, unspecified Code(s): I50.9 - Heart failure, unspecified Status: Chronic Assessment and Plan: History of systolic congestive heart failure But last echocardiogram in August showing EF of 60-65% and abnormal diastolic function. Lasix was on hold for alkalosis but then resumed. She was on Entresto, Coreg and Lasix 40 mg daily but held due to KONRAD and hypotension. Resume medications as tolerated. (12) Macrocytic anemia: Code(s): D53.9 - Nutritional anemia, unspecified Sta
[2021-08-24] MEDS: DEXAMETHASONE 2 MG TABLET 6 MG PO (09:54)
[2021-08-24] MEDS: CHOLECALCIFEROL 1,000 UNITS TABLET 1000 UNITS PO (09:55)
[2021-08-24] MEDS: FERROUS SULFATE 324 MG TABLET PO ×2 (09:55→17:22)
[2021-08-24] MEDS: FUROSEMIDE 40 MG TABLET PO (09:55)
[2021-08-24] MEDS: DICYCLOMINE HCL 10 MG CAPSULE 20 MG PO ×2 (09:55→17:22)
[2021-08-24] MEDS: MAGNESIUM OXIDE 400 MG TABLET PO (09:55)
[2021-08-24] MEDS: PANTOPRAZOLE 40 MG TABLET PO (09:56)
[2021-08-24] MEDS: PENTOXIFYLLINE 400 MG TABCR PO ×2 (09:56→17:22)
[2021-08-24] MEDS: METOPROLOL TARTRATE 50 MG TAB PO ×2 (09:56→20:51)
[2021-08-24] MEDS: SERTRALINE HCL 25 MG TABLET PO (09:57)
[2021-08-24] MEDS: SACUBITRIL/VALSARTAN 12-13 MG TABLET 1 TAB PO ×2 (09:57→20:51)
--- NOTE | 2021-08-24 10:02 | PCOTNOTE ---
Attempted to see patient for OT tx this AM. Patient having difficulty staying awake and is adamantly declining any/all activity. Will continue to attempt.
[2021-08-24] MEDS: LIDOCAINE 5% PATCH 1 PATCH TRANSDERM (10:34)
[2021-08-24] MEDS: REMDESIVIR 100 MG/NS 250 ML 100 MG/250 ML BAG 250 MG IVPB (10:35)
[2021-08-24 10:36] LABS: INR 2.5; Prothrombin Time 26.5 Seconds (11.1-14.7)
[2021-08-24 10:46] LABS: Alanine Aminotransferase 16 U/L (4-35); Estimated CRCL calculation 72 ml/min; Estimated Glomerular Filt Rate > 60
--- NOTE | 2021-08-24 11:27 | PCPTNOTE ---
Patient refused treatment this session. Patient states I don't feel well! PT will continue to follow per plan of care.
--- NOTE | 2021-08-24 13:14 | PCNFU ---
Nutrition Follow-Up Complete: Inadequate oral intake related to decreased appetite as evidenced by average intake of 10% and pt. refusing several meals. Goal: Patient to meet estimated nutritional needs. Patient has limited progress towards goal. We will continue current goal. Pt current nutrition is Heart Healthy with Glucerna shakes TID. Last recorded weight is 124.5 kg, up from 119.8 kg Bowel Motility:+Bm reported 08/23 Labs Reviewed:BUN 27, Hgb 10.4 Meds Noted:Remdesivir, Dexamethasone, Ferrous Sulfate, Mag ox, Vit D, Vancomycin, Zocor, Zoloft, Protonix. Skin: WNL Additional Notes: Patient found COVID positive 08/23, started on Remdesivir. Appetite has been very poor. Spoke with MD today regarding nutrition. Plans to liberalize diet today to regular, will continue Glucerna shakes TID. patient very drowsy today per EMR. Refused therapies. Requiring Bipap at times. PO intake encouraged. Monitoring: Monitor pt. labs, medications, weight and oral intake every 5 days.
[2021-08-24 14:36] LABS: SARS-CoV-2 RNA PCR Positive
[2021-08-24] MEDS: RIVAROXABAN 20 MG TABLET PO (17:23)
--- NOTE | 2021-08-24 19:33 | PC.NURSE ---
Core Winder Machine Operator called Dr. Harris times two message left to return call No return call. Core Winder Machine Operator call Park to who reports she is not data conversion developer for this MD and MD should be responding she would talk to Dr. Mae. Core Winder Machine Operator was attempting to notify provider pt IV line went bad, attempts by 3 nurses which included housekeeping aide with no success. Pt did not receive 1800 Vanco. Park reports she will return call after call schedule figured out.
[2021-08-24] MEDS: PREGABALIN (*CRX) 50 MG CAPSULE PO (20:51)
[2021-08-24] MEDS: SIMVASTATIN 20 MG TABLET PO (20:51)
[2021-08-25] VITALS (12 sets, daily range): BP systolic 129–150; BP diastolic 68–88; PULSE 89–113; RESP 16–23; TEMP 36.3–37.2; O2SAT 90–98
[2021-08-25] MEDS: LEVOTHYROXINE SODIUM 125 MCG TABLET PO (06:45)
--- NOTE | 2021-08-25 06:55 | PC.NURSE ---
1900: Claim Trainee received report that patient had no IV access. Previous nurse left a note regarding the situation. Claim Trainee attempted to follow up with hide and skin processing worker BENCH ASSEMBLER Park Mckeon. Linda stated that Dr. Harris did not return her phone call and no phone call to the floor from her was noted. Linda said to hold antibiotics and fluids until 08/25/[address] an IV.
[2021-08-25] MEDS: METOPROLOL TARTRATE 50 MG TAB PO ×2 (08:04→21:05)
[2021-08-25] MEDS: SERTRALINE HCL 25 MG TABLET PO (08:04)
[2021-08-25] MEDS: SACUBITRIL/VALSARTAN 12-13 MG TABLET 1 TAB PO ×2 (08:04→21:05)
[2021-08-25] MEDS: PENTOXIFYLLINE 400 MG TABCR PO ×2 (08:04→16:59)
[2021-08-25] MEDS: DEXAMETHASONE 2 MG TABLET 6 MG PO (08:04)
[2021-08-25] MEDS: CHOLECALCIFEROL 1,000 UNITS TABLET 1000 UNITS PO (08:05)
[2021-08-25] MEDS: FERROUS SULFATE 324 MG TABLET PO ×2 (08:05→16:59)
[2021-08-25] MEDS: FUROSEMIDE 40 MG TABLET PO (08:05)
[2021-08-25] MEDS: DICYCLOMINE HCL 10 MG CAPSULE 20 MG PO ×2 (08:05→16:59)
[2021-08-25] MEDS: LIDOCAINE 5% PATCH 1 PATCH TRANSDERM (08:05)
[2021-08-25] MEDS: PANTOPRAZOLE 40 MG TABLET PO (08:05)
[2021-08-25] MEDS: MAGNESIUM OXIDE 400 MG TABLET PO (08:05)
[2021-08-25] MEDS: PREGABALIN (*CRX) 50 MG CAPSULE PO ×2 (08:08→21:05)
[2021-08-25] MEDS: FLUTICASONE/UMECLIDIN/VILANTER 100-62.5-25 MCG ELLIPTA 1 PUFF INHALATION (08:54)
[2021-08-25 09:07] LABS: Alanine Aminotransferase 17 U/L (4-35); Estimated CRCL calculation 65 ml/min; Estimated Glomerular Filt Rate > 60
[2021-08-25 09:11] LABS: INR 1.9; Prothrombin Time 21.7 Seconds (11.1-14.7)
[2021-08-25] MEDS: ACETAMINOPHEN 500 MG TABLET PO ×2 (11:42→21:07)
[2021-08-25] MEDS: REMDESIVIR 100 MG/NS 250 ML 100 MG/250 ML BAG 250 MG IVPB (11:50)
--- NOTE | 2021-08-25 12:02 | PM.IMPN ---
Progress Note: A&P Assessment and Plan (1) COVID-19: Code(s): U07.1 - COVID-19 Status: Acute Assessment and Plan: Patient tested positive on rapid COVID test confirmed by PCR. Patient was appropriately started on remdesivir and dexamethasone. Continue remdesivir, IV steroids. Currently patient is saturating mid 90s on oxygen 4 L. Patient tested positive for COVID-19 on 08/23 and started on remdesivir, dexamethasone on 08/23 - Continue Remdesivir for 10 days unless she should recover and saturate well on her baseline home oxygen requirement of 3 L with rest, ambulation and while sleeping. - Dexamethasone 6 mg IV for 10 days - Continuous pulse oximetry - Prone positioning as tolerated. - Avoid any fluid overload. -stop vancomycin. Blood cultures are unrevealing today. - Albuterol And ipratropium nebulizers q.4 hours for now, no wheezes. - Will check influenza swab. Keep saturations are 90-94% with nasal cannula up to 15 L, if fails then Airvo high flow nasal cannula and add tocilizumab or baracitinib, if fails then BiPAP, if fails then mechanical ventilation if she remains a full code. (2) Septicemia: Code(s): A41.9 - Sepsis, unspecified organism Status: Acute Assessment and Plan: Patient had fever, hypotension worsening oxygenation and KONRAD consistent with sepsis. She may have pneumonia and she is also being worked up for a pyelonephritis. Patient does have worsening of her chronic back pain. Blood cultures are negative. Patient's mental status has slowly improved she is still lethargic but now follow simple commands. Patient wore her noninvasive ventilator with the AVAPS mode continuously overnight. She has developed acute renal failure and had a fever last night of 37.7 was empirically started on vancomycin and cefepime on 08/17. Chest x-ray showed elevated right hemidiaphragm and continued stable right lung and left lung infiltrates. I was able to take her off of BiPAP for approximately 15 minutes and the patient then had desaturations despite 15 L nasal cannula. She complained of excruciating back pain and may require imaging in the future. No wheezes on exam and will continue trelegy. 08/21/21 Patient grew out methicillin sensitive Staph aureus in 2 blood cultures from 08 17 and has been treated with vancomycin and cefepime. Her mental status has improved. Repeat Blood cultures without growth. Cefepime and vancomycin is stopped on 08/26/2021. Patient started on cefazolin. (3) Altered mental status: Code(s): R41.82 - Altered mental status, unspecified Status: Acute Assessment and Plan: Altered mental status; patient appears drowsy and lethargic today. Continue to hold Lyrica. (4) KONRAD (acute kidney injury): Code(s): N17.9 - Acute kidney failure, unspecified Status: Acute Assessment and Plan: Resolved acute nonoliguric acute kidney injury creatinine improving from 0.9->0.7. It is felt to be an acute kidney injury related to ATN. UA noted. Urine culture negative to date. Urine sodium less than 5 to suggest dehydration as a component as well. She is currently on IV fluids. (5) Acute and chronic respiratory failure with hypercapnia: Code(s): J96.22 - Acute and chronic respiratory failure with hypercapnia Status: Chronic Assessment and Plan: Patient wore hospital BiPAP rate of 16, pressure is 22/12 and 40% and had a blood gas at the end of the night with a pH of 7.35/61/86. Patient had an overnight oximetry on these settings with an average saturation of 95%. If she goes to a facility that can only manage BiPAP she should use: BiPAP rate of 16, pressure is 22/12 and 5 L bleed in. (6) COPD exacerbation: Code(s): J44.1 - Chronic obstructive pulmonary disease with (acute) exacerbation Status: Acute Assessment and Plan: No overt wheezing. Appreciate pulmonary input. Continue home medications. As above.
--- NOTE | 2021-08-25 15:02 | PCPTNOTE ---
Patient refused treatment this session. Patient shook her head no and waved good-bye when I told her it was time for PT treatment. Patient closed her eyes and would not respond to any questions.
[2021-08-25] MEDS: RIVAROXABAN 20 MG TABLET PO (16:59)
--- NOTE | 2021-08-25 18:13 | PC.NURSE ---
Md Harris updated on pt poor appetite this shift, IV fluids NS 60 ml/hr restarted with regain of IV access.
[2021-08-25] MEDS: SIMVASTATIN 20 MG TABLET PO (21:05)
[2021-08-26] VITALS (8 sets, daily range): BP systolic 133–164; BP diastolic 66–90; PULSE 65–105; RESP 14–20; TEMP 35.8–37; O2SAT 91–97
[2021-08-26] MEDS: LEVOTHYROXINE SODIUM 125 MCG TABLET PO (06:50)
[2021-08-26 08:15] LABS: Estimated CRCL calculation 81 ml/min; Estimated Glomerular Filt Rate > 60
[2021-08-26 08:54] LABS: INR 1.9; Prothrombin Time 21.1 Seconds (11.1-14.7)
[2021-08-26] MEDS: SACUBITRIL/VALSARTAN 12-13 MG TABLET 1 TAB PO ×2 (10:10→20:29)
[2021-08-26] MEDS: FUROSEMIDE 40 MG TABLET PO (10:10)
[2021-08-26] MEDS: LIDOCAINE 5% PATCH 1 PATCH TRANSDERM (10:10)
[2021-08-26] MEDS: PANTOPRAZOLE 40 MG TABLET PO (10:10)
[2021-08-26] MEDS: PENTOXIFYLLINE 400 MG TABCR PO ×2 (10:11→17:05)
[2021-08-26] MEDS: DICYCLOMINE HCL 10 MG CAPSULE 20 MG PO ×2 (10:11→17:05)
[2021-08-26] MEDS: DEXAMETHASONE 2 MG TABLET 6 MG PO (10:11)
[2021-08-26] MEDS: FERROUS SULFATE 324 MG TABLET PO ×2 (10:11→17:05)
[2021-08-26] MEDS: CHOLECALCIFEROL 1,000 UNITS TABLET 1000 UNITS PO (10:11)
[2021-08-26] MEDS: METOPROLOL TARTRATE 50 MG TAB PO ×2 (10:11→20:29)
[2021-08-26] MEDS: MAGNESIUM OXIDE 400 MG TABLET PO (10:11)
[2021-08-26] MEDS: SERTRALINE HCL 25 MG TABLET PO (10:12)
[2021-08-26] MEDS: ACETAMINOPHEN 500 MG TABLET PO (10:15)
[2021-08-26] MEDS: PREGABALIN (*CRX) 50 MG CAPSULE PO ×2 (10:15→20:29)
--- NOTE | 2021-08-26 11:13 | PCPTNOTE ---
When getting to the room the nurse was just coming out of the room. She suggested to come back later since the patient wasn't having a good morning.
[2021-08-26 11:30] LABS: Alanine Aminotransferase 16 U/L (4-35)
[2021-08-26] MEDS: REMDESIVIR 100 MG/NS 250 ML 100 MG/250 ML BAG 250 MG IVPB (11:47)
--- NOTE | 2021-08-26 12:54 | PCPTNOTE ---
Talked to RN prior to entering the pts room. Nursing stated that the patient is still not doing to good today. The pts O2 dropped down earlier and her heart rate went up. The pt is currently resting in her room on BIPAP so nursing said to hold for today.
--- NOTE | 2021-08-26 15:08 | PM.IMPN ---
Progress Note: A&P Assessment and Plan (1) COVID-19: Code(s): U07.1 - COVID-19 Status: Acute Assessment and Plan: Patient tested positive on rapid COVID test confirmed by PCR on August 23, 2021. Patient was appropriately started on remdesivir and dexamethasone. Continue remdesivir, IV steroids. Currently patient is saturating mid 90s on oxygen 4 L. Patient tested positive for COVID-19 on 08/23 and started on remdesivir, dexamethasone on 08/23 - Continue Remdesivir for 10 days unless she should recover and saturate well on her baseline home oxygen requirement of 3 L with rest, ambulation and 5 L bleed in while sleeping. - Dexamethasone 6 mg IV for 10 days - Continuous pulse oximetry - Prone positioning as tolerated. - Avoid any fluid overload. -stop vancomycin and cefepime. Blood cultures(08/21/2021) are unrevealing. - Albuterol And ipratropium nebulizers q.4 hours for now, no wheezes. -follow-up check influenza swab. -obtain ABG. Keep saturations are 90-94% with nasal cannula up to 15 L, if fails then Airvo high flow nasal cannula and add tocilizumab or baracitinib, if fails then BiPAP, if fails then mechanical ventilation if she remains a full code. (2) Septicemia: Code(s): A41.9 - Sepsis, unspecified organism Status: Acute Assessment and Plan: Patient had fever, hypotension worsening oxygenation and KONRAD consistent with sepsis. She may have pneumonia and she is also being worked up for a pyelonephritis. Patient does have worsening of her chronic back pain. Blood cultures are negative. Patient's mental status has slowly improved she is still lethargic but now follow simple commands. Patient wore her noninvasive ventilator with the AVAPS mode continuously overnight. She has developed acute renal failure and had a fever last night of 37.7 was empirically started on vancomycin and cefepime on 08/17. Chest x-ray showed elevated right hemidiaphragm and continued stable right lung and left lung infiltrates. I was able to take her off of BiPAP for approximately 15 minutes and the patient then had desaturations despite 15 L nasal cannula. She complained of excruciating back pain and may require imaging in the future. No wheezes on exam and will continue trelegy. 08/21/21 Patient grew out methicillin sensitive Staph aureus in 2 blood cultures from 08 17 and has been treated with vancomycin and cefepime. Her mental status has improved. Repeat Blood cultures without growth. Cefepime and vancomycin are stopped on 08/26/2021. Patient started on cefazolin 1 G IV q 8hrs (08/26/2021). (3) Altered mental status: Code(s): R41.82 - Altered mental status, unspecified Status: Acute Assessment and Plan: Altered mental status; patient appears more awake and oriented today. Continue to hold Lyrica. (4) KONRAD (acute kidney injury): Code(s): N17.9 - Acute kidney failure, unspecified Status: Acute Assessment and Plan: Resolved acute nonoliguric acute kidney injury creatinine improving from 0.9->0.7. It is felt to be an acute kidney injury related to ATN. UA noted. Urine culture negative to date. Urine sodium less than 5 to suggest dehydration as a component as well. She is currently on IV fluids. (5) Acute and chronic respiratory failure with hypercapnia: Code(s): J96.22 - Acute and chronic respiratory failure with hypercapnia Status: Chronic Assessment and Plan: Patient wore hospital BiPAP rate of 16, pressure is 22/12 and 40% and had a blood gas at the end of the night with a pH of 7.35/61/86. Patient had an overnight oximetry on these settings with an average saturation of 95%. If she goes to a facility that can only manage BiPAP she should use: BiPAP rate of 16, pressure is 22/12 and 5 L bleed in. (6) COPD exacerbation: Code(s): J44.1 - Chronic obstructive pulmonary disease with (acute) exacerbation Status: Acute Assessment and
[2021-08-26] MEDS: WATER FOR IRRIGATION, STERILE 1,000 ML BOTTLE 1000 ML (15:26)
[2021-08-26] MEDS: RIVAROXABAN 20 MG TABLET PO (17:05)
[2021-08-26 20:22] LABS: Alveolar/Arterial O2 Gradient 148.1 mmHg; Base Excess ABG 2.6 mEq/l (+/-2.0); Fractional Inspired Oxygen 40 %; Oxygen Content ABG 16.4 %vol (16.0-22.0); Oxygen Saturation ABG 92.1 % (95.0-100.0); Oxyhemoglobin 91.2 % THb (90.0-100.0); PCO2 ABG 59.2 mmHg (35.0-45.0); PO2 FiO2 Ratio Arterial Blood 1.73 %; Total Hemoglobin 12.8 g/dL (12.0-18.0); pH ABG 7.322 (7.350-7.450)
[2021-08-26 20:23] LABS: Device NON-INVASIVE VENT; Modified Allen's Test Pass; Site Drawn LEFT RADIAL
[2021-08-26 20:24] LABS: Non-Invasive Expiratory Pressure 12 CMH2O; Non-Invasive Inspiratory Pressure 22 CMH2O; Non-Invasive Vent Rate 16 /MIN
[2021-08-26] MEDS: SIMVASTATIN 20 MG TABLET PO (20:29)
[2021-08-27] VITALS (12 sets, daily range): BP systolic 129–148; BP diastolic 64–88; PULSE 60–97; RESP 14–20; TEMP 36–36.8; O2SAT 90–96
[2021-08-27] MEDS: SODIUM CHLORIDE 0.9% IV 1,000 ML 60 ML IV CONT ×2 (05:42→09:53)
[2021-08-27] MEDS: PANTOPRAZOLE SODIUM IV 40 MG VIAL IV PUSH (05:42)
[2021-08-27] MEDS: LEVOTHYROXINE SODIUM 125 MCG TABLET PO (05:43)
[2021-08-27 06:48] LABS: Hematocrit 38.1 % (37.0-47.0); Hemoglobin 11.5 g/dL (12.0-15.0); Mean Corpuscular HGB Conc 30.2 g/dl (32-36); Mean Corpuscular Hemoglobin 31.3 pg (26-34); Mean Corpuscular Volume 103.8 fl (80-100); Mean Platelet Volume 11.2 fl (7.4-10.4); Platelet Count Result 249 k/mm3 (150-375); Red Blood Count 3.67 M/mm3 (4.2-5.4); White Blood Count 7.7 K/mm3 (4.5-10.0)
[2021-08-27 06:57] LABS: Alanine Aminotransferase 16 U/L (4-35); Anion Gap 5 mmol/L (8-16); Blood Urea Nitrogen 26 mg/dL (7-17); CRP 5.9 mg/dL (<1.0); Calcium 8.2 mg/dL (8.4-10.2); Carbon Dioxide 34 mmol/L (22-30); Chloride 102 mmol/L (98-107); Estimated CRCL calculation 72 ml/min; Estimated Glomerular Filt Rate > 60; Glucose 109 mg/dL (65-110); Lactate Dehydrogenase 709 U/L (313-618); Potassium 3.1 mmol/L (3.4-5.0); Sodium 141 mmol/L (137-145)
[2021-08-27 07:15] LABS: INR 2.3; Prothrombin Time 24.8 Seconds (11.1-14.7)
[2021-08-27] MEDS: FLUTICASONE/UMECLIDIN/VILANTER 100-62.5-25 MCG ELLIPTA 1 PUFF INHALATION (08:40)
--- NOTE | 2021-08-27 08:49 | PM.IMPN ---
Progress Note: A&P Assessment and Plan (1) COVID-19: Code(s): U07.1 - COVID-19 Status: Acute Assessment and Plan: Patient tested positive on rapid COVID test confirmed by PCR on August 23, 2021. Patient was appropriately started on remdesivir and dexamethasone. Continue remdesivir, IV steroids. Currently patient is saturating 94% on oxygen 4 L. Patient tested positive for COVID-19 on 08/23 and started on remdesivir, dexamethasone on 08/23 - Continue Remdesivir for 10 days unless she should recover and saturate well on her baseline home oxygen requirement of 3 L with rest, ambulation and 5 L bleed in while sleeping. - Dexamethasone 6 mg IV for 10 days - Continuous pulse oximetry - Prone positioning as tolerated. - Avoid any fluid overload. -stop vancomycin and cefepime. Blood cultures(08/21/2021) are unrevealing. - Albuterol And ipratropium nebulizers q.4 hours for now, no wheezes. -follow-up check influenza swab. - ABG reviewed. PH 7.32/pCO2 59/PO2 69/ O2 sat 92%. Keep saturations are 90-94% with nasal cannula up to 15 L, if fails then Airvo high flow nasal cannula and add tocilizumab or baracitinib, if fails then BiPAP, if fails then mechanical ventilation if she remains a full code. (2) Septicemia: Code(s): A41.9 - Sepsis, unspecified organism Status: Acute Assessment and Plan: Patient had fever, hypotension worsening oxygenation and KONRAD consistent with sepsis. She may have pneumonia and she is also being worked up for a pyelonephritis. Patient does have worsening of her chronic back pain. Blood cultures are negative. Patient's mental status has slowly improved she is still lethargic but now follow simple commands. Patient wore her noninvasive ventilator with the AVAPS mode continuously overnight. She has developed acute renal failure and had a fever last night of 37.7 was empirically started on vancomycin and cefepime on 08/17. Chest x-ray showed elevated right hemidiaphragm and continued stable right lung and left lung infiltrates. I was able to take her off of BiPAP for approximately 15 minutes and the patient then had desaturations despite 15 L nasal cannula. She complained of excruciating back pain and may require imaging in the future. No wheezes on exam and will continue trelegy. 08/21/21 Patient grew out methicillin sensitive Staph aureus in 2 blood cultures from 08 17 and has been treated with vancomycin and cefepime. Her mental status has improved. Repeat Blood cultures without growth. Cefepime and vancomycin are stopped on 08/26/2021. Patient started on cefazolin 1 G IV q 8hrs (08/26/2021). (3) Altered mental status: Code(s): R41.82 - Altered mental status, unspecified Status: Acute Assessment and Plan: Altered mental status; patient intermittently sleepy and drowsy continue to hold Lyrica. (4) KONRAD (acute kidney injury): Code(s): N17.9 - Acute kidney failure, unspecified Status: Acute Assessment and Plan: Resolved acute nonoliguric acute kidney injury creatinine stable at 0.8. It is felt to be an acute kidney injury related to ATN. UA noted. Urine culture negative to date. Urine sodium less than 5 to suggest dehydration as a component as well. She is currently on IV fluids. (5) Acute and chronic respiratory failure with hypercapnia: Code(s): J96.22 - Acute and chronic respiratory failure with hypercapnia Status: Chronic Assessment and Plan: Patient wore hospital BiPAP rate of 16, pressure is 22/12 and 40% and had a blood gas at the end of the night with a pH of 7.35/61/86. Patient had an overnight oximetry on these settings with an average saturation of 95%. If she goes to a facility that can only manage BiPAP she should use: BiPAP rate of 16, pressure is 22/12 and 5 L bleed in. (6) COPD exacerbation: Code(s): J44.1 - Chronic obstructive pulmonary disease with (acute) exacerbation Status: Acute
[2021-08-27] MEDS: PENTOXIFYLLINE 400 MG TABCR PO ×2 (09:54→17:15)
[2021-08-27] MEDS: LIDOCAINE 5% PATCH 1 PATCH TRANSDERM (09:54)
[2021-08-27] MEDS: METOPROLOL TARTRATE 50 MG TAB PO ×2 (09:54→22:17)
[2021-08-27] MEDS: DICYCLOMINE HCL 10 MG CAPSULE 20 MG PO ×2 (09:54→17:15)
[2021-08-27] MEDS: SACUBITRIL/VALSARTAN 12-13 MG TABLET 1 TAB PO ×2 (09:54→22:19)
[2021-08-27] MEDS: FERROUS SULFATE 324 MG TABLET PO ×2 (09:54→17:15)
[2021-08-27] MEDS: SERTRALINE HCL 25 MG TABLET PO (09:54)
[2021-08-27] MEDS: CHOLECALCIFEROL 1,000 UNITS TABLET 1000 UNITS PO (09:55)
[2021-08-27] MEDS: PREGABALIN (*CRX) 50 MG CAPSULE PO ×2 (09:55→22:19)
[2021-08-27] MEDS: DEXAMETHASONE 2 MG TABLET 6 MG PO (09:55)
[2021-08-27] MEDS: PANTOPRAZOLE 40 MG TABLET PO (09:55)
[2021-08-27] MEDS: FUROSEMIDE 40 MG TABLET PO (09:55)
[2021-08-27] MEDS: MAGNESIUM OXIDE 400 MG TABLET PO (09:55)
[2021-08-27] MEDS: REMDESIVIR 100 MG/NS 250 ML 100 MG/250 ML BAG 250 MG IVPB (10:42)
[2021-08-27] MEDS: RIVAROXABAN 20 MG TABLET PO (17:15)
[2021-08-27] MEDS: POTASSIUM CHLORIDE 20 MEQ PACKET (FOR LIQUID) 40 MEQ PO (17:15)
[2021-08-27] MEDS: SIMVASTATIN 20 MG TABLET PO (22:19)
[2021-08-28] VITALS (10 sets, daily range): BP systolic 143–148; BP diastolic 49–87; PULSE 62–122; RESP 16–20; TEMP 35.9–36.9; O2SAT 90–96
[2021-08-28] MEDS: LEVOTHYROXINE SODIUM 125 MCG TABLET PO (05:44)
[2021-08-28] MEDS: FLUTICASONE/UMECLIDIN/VILANTER 100-62.5-25 MCG ELLIPTA 1 PUFF INHALATION (09:28)
[2021-08-28 10:00] LABS: CRP 4.6 mg/dL (<1.0); Estimated CRCL calculation 94 ml/min; Estimated Glomerular Filt Rate > 60; Lactate Dehydrogenase 1170 U/L (313-618)
--- NOTE | 2021-08-28 10:44 | P.PNIM_ITS ---
Progress Note: A&P Assessment and Plan (1) COVID-19: Code(s): U07.1 - COVID-19 Status: Acute Assessment and Plan: Patient tested positive on rapid COVID test confirmed by PCR on August 23, 2021. Patient was appropriately started on remdesivir and dexamethasone. Continue remdesivir, IV steroids. Currently patient is saturating 94% on oxygen 4 L. Patient tested positive for COVID-19 on 08/23 and started on remdesivir, dexamethasone on 08/23 - Continue Remdesivir for 10 days unless she should recover and saturate well on her baseline home oxygen requirement of 3 L with rest, ambulation and 5 L bleed in while sleeping. - Dexamethasone 6 mg IV for 10 days - Continuous pulse oximetry - Prone positioning as tolerated. - Avoid any fluid overload. -stop vancomycin and cefepime. Blood cultures(08/21/2021) are unrevealing. - Albuterol And ipratropium nebulizers q.4 hours for now, no wheezes. -follow-up check influenza swab. - ABG reviewed. PH 7.32/pCO2 59/PO2 69/ O2 sat 92%. Keep saturations are 90-94% with nasal cannula up to 15 L, if fails then Airvo high flow nasal cannula and add tocilizumab or baracitinib, if fails then BiPAP, if fails then mechanical ventilation if she remains a full code. (2) Septicemia: Code(s): A41.9 - Sepsis, unspecified organism Status: Acute Assessment and Plan: Patient had fever, hypotension worsening oxygenation and KONRAD consistent with sepsis. She may have pneumonia and she is also being worked up for a pyelon ephritis. Patient does have worsening of her chronic back pain. Blood cultures are negative. Patient's mental status has slowly improved she is still lethargic but now follow simple commands. Patient wore her noninvasive ventilator with the AVAPS mode continuously overnight. She has developed acute renal failure and had a fever last night of 37.7 was empirically started on vancomycin and cefepime on 08/17. Chest x-ray showed elevated right hemidiaphragm and continued stable right lung and left lung infiltrates. I was able to take her off of BiPAP for approximately 15 minutes and the patient then had desaturations despite 15 L nasal cannula. She complained of excruciating back pain and may require imaging in the future. No wheezes on exam and will continue trelegy. 08/21/21 Patient grew out methicillin sensitive Staph aureus in 2 blood cultures from 08 17 and has been treated with vancomycin and cefepime. Her mental status has improved. Repeat Blood cultures without growth. Cefepime and vancomycin are stopped on 08/26/2021. Patient started on cefazolin 1 G IV q 8hrs (08/26/2021). (3) Altered mental status: Code(s): R41.82 - Altered mental status, unspecified Status: Acute Assessment and Plan: Altered mental status; patient intermittently sleepy and drowsy continue to hold Lyrica. (4) KONRAD (acute kidney injury): Code(s): N17.9 - Acute kidney failure, unspecified Status: Acute Assessment and Plan: Resolved acute nonoliguric acute kidney injury creatinine stable at 0.8. It is felt to be an acute kidney injury related to ATN. UA noted. Urine culture negative to date. Urine sodium less than 5 to suggest dehydration as a component as well. She is currently on IV fluids. (5) Acute and chronic respiratory failure with hypercapnia: Code(s): J96.22 - Acute and chronic respiratory failure with hypercapnia Status: Chronic Assessment and Plan: Patient wore hospital BiPAP rate of 16, pressure is 22/12 and 40% and had a blood gas at the end of the night with a pH of 7.35/61/86. Patient had an overnight oximetry on these settings with an
[2021-08-28] MEDS: FUROSEMIDE 40 MG TABLET PO (10:50)
[2021-08-28] MEDS: MAGNESIUM OXIDE 400 MG TABLET PO (10:50)
[2021-08-28] MEDS: DEXAMETHASONE 2 MG TABLET 6 MG PO (10:50)
[2021-08-28] MEDS: METOPROLOL TARTRATE 50 MG TAB PO ×2 (10:50→20:11)
[2021-08-28] MEDS: SACUBITRIL/VALSARTAN 12-13 MG TABLET 1 TAB PO ×2 (10:51→20:12)
[2021-08-28] MEDS: PANTOPRAZOLE 40 MG TABLET PO ×2 (10:51→20:11)
[2021-08-28] MEDS: SERTRALINE HCL 25 MG TABLET PO (10:51)
[2021-08-28] MEDS: LIDOCAINE 5% PATCH 1 PATCH TRANSDERM (10:51)
[2021-08-28] MEDS: PREGABALIN (*CRX) 50 MG CAPSULE PO ×2 (10:51→20:22)
[2021-08-28] MEDS: CHOLECALCIFEROL 1,000 UNITS TABLET 1000 UNITS PO (10:51)
[2021-08-28] MEDS: PENTOXIFYLLINE 400 MG TABCR PO ×2 (10:51→17:40)
[2021-08-28] MEDS: DICYCLOMINE HCL 10 MG CAPSULE 20 MG PO ×2 (10:51→17:40)
[2021-08-28] MEDS: FERROUS SULFATE 324 MG TABLET PO ×2 (10:51→17:40)
[2021-08-28 14:30] LABS: INR 1.7; INR 1.8; Prothrombin Time 19.9 Seconds (11.1-14.7); Prothrombin Time 20.5 Seconds (11.1-14.7)
[2021-08-28 14:34] LABS: Alanine Aminotransferase 12 U/L (4-35); Estimated CRCL calculation 81 ml/min; Estimated Glomerular Filt Rate > 60
[2021-08-28] MEDS: REMDESIVIR 100 MG/NS 250 ML 100 MG/250 ML BAG 250 MG IVPB (17:39)
[2021-08-28] MEDS: POTASSIUM CHLORIDE 20 MEQ TABLET 40 MEQ PO (17:40)
[2021-08-28] MEDS: RIVAROXABAN 20 MG TABLET PO (17:40)
--- NOTE | 2021-08-28 17:59 | WPDGICN ---
Assessment and Plan Assessment and plan (1) Melena: Code(s): K92.1 - Melena Status: Acute Assessment and Plan: recent dark tarry stool but stable hb at baseline 10 will increase protonix to twice daily 1 year ago had EGD by Dr Matt that showed erosive gastritis continue to check for signs of bleeding or drop in hb conservative management for now since she has chronic respiratory failure and covid (2) Erosive gastritis: Code(s): K29.60 - Other gastritis without bleeding Status: Acute Assessment and Plan: found previously ppi (3) Colon polyps: Code(s): K63.5 - Polyp of colon Status: Chronic Assessment and Plan: she was found to have large polyp in right colon and advised to have surgically removed (4) Acute and chronic respiratory failure with hypercapnia: Code(s): J96.22 - Acute and chronic respiratory failure with hypercapnia Status: Chronic (5) COVID-19: Code(s): U07.1 - COVID-19 Status: Acute Assessment and Plan: slow recovery she says that received only one dose of vaccine (6) Hx of cancer of lung: Code(s): Z85.118 - Personal history of other malignant neoplasm of bronchus and lung Status: Acute (7) COPD (chronic obstructive pulmonary disease): Qualifiers: COPD type: unspecified COPD Qualified Code(s): J44.9 - Chronic obstructive pulmonary disease, unspecified Code(s): J44.9 - Chronic obstructive pulmonary disease, unspecified Status: Chronic (8) Chronic anemia: Code(s): D64.9 - Anemia, unspecified Status: Acute Assessment and Plan: continue to monitor GI Consult Note Consult date/time: 08/28/21 17:59 Reason for consult: melena HPI: Valorie Harris is a 76 year old female with medical history is significant for right lung cancer status post right upper lobe lobectomy approximately 15 years ago, chronically elevated right hemidiaphragm, she has been on negative ventilatory support at night but using it only 1 day per week, congestive heart failure, and COPD and previous hospitalization for respiratory failure. She had GIB 2020 due to ulcer (done at [place]), then evaluated by Dr Matt on 08/2020 because anemia and FOBT, EGD showed erosive gastritis without active bleeding, also had large polyps in right colon unable to remove endoscopically with plan to refer to surgery. She was admitted 08/10 with respiratory failure and finally diagnosed with COVID, today had one episode of dark tarry stool but hb stable at 10.4, denies abdominal pain. She has been on protonix since admission. Review of Systems Constitutional: Constitutional: Reports fatigue Eyes: Eyes: Reports no additional eye complaints ENT: Reports Normal hearing present Cardiovascular: Cardiovascular: Denies chest pain Respiratory: Respiratory: Reports dyspnea on exertion Gastrointestinal: Gastrointestinal: Denies abdominal pain Genitourinary: Genitourinary: Denies flank pain Musculoskeletal: Musculoskeletal: Denies neck pain Integumentary/Breasts: Skin/Breast: Denies dry skin Neurologic: Denies headache(s) Psychiatric: Psychiatric: Denies behavioral changes ON LICENSE OF [facility] Past Medical History Medical History (Updated 08/28/21 @ 18:10 by Nestor Cifuentes MD) Arterial stent thrombosis Left leg Atrial fibrillation Chronic anemia 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[facility]; Dr Shi, [employer] COPD (chronic obstructive pulmonary disease) Deficits with air trapping and increased airway resistance with lack of response to bronchodilator therapy. Now on Trilogy. COVID-19 Depression Descending aortic aneurysm Stable fusiform 4.7 cm within stent graft Erosive gastritis H/O: lung cancer 2006 chemotherapy and s/p lobectomy Hemorrhoids Hyperlipidemia Hypertension Hypothyroidism Melena Morbid obesity Neuropathy Peptic ulcer disease Peripheral artery d
[2021-08-28] MEDS: SIMVASTATIN 20 MG TABLET PO (20:12)
[2021-08-29] VITALS (10 sets, daily range): BP systolic 140–155; BP diastolic 61–80; PULSE 74–105; RESP 18–22; TEMP 36.1–36.7; O2SAT 92–97
--- NOTE | 2021-08-29 05:16 | PC.NURSE ---
Pt. calls out stating that she is having trouble breathing . Increased O2 to 5L from 4L, repositioned in bed, and raised the head of the bed. Pt. states she is no longer having trouble breathing and is in no distress. O2 saturation is steady at 93% and the RN will continue to monitor.
[2021-08-29] MEDS: LEVOTHYROXINE SODIUM 125 MCG TABLET PO (05:30)
[2021-08-29 06:46] LABS: Hematocrit 38.9 % (37.0-47.0); Hemoglobin 11.9 g/dL (12.0-15.0); Mean Corpuscular HGB Conc 30.6 g/dl (32-36); Mean Corpuscular Hemoglobin 30.9 pg (26-34); Mean Platelet Volume 11.3 fl (7.4-10.4); Platelet Count Result 263 k/mm3 (150-375); Red Blood Count 3.85 M/mm3 (4.2-5.4); Red Cell Distribution Width 15.8 % (11.5-14.5); White Blood Count 8.3 K/mm3 (4.5-10.0)
[2021-08-29 07:03] LABS: INR 2.3; Prothrombin Time 24.5 Seconds (11.1-14.7)
[2021-08-29 07:07] LABS: Alanine Aminotransferase 12 U/L (4-35); Albumin Level 3.2 g/dL (3.5-5.1); Alkaline Phosphatase 82 U/L (38-126); Anion Gap 6 mmol/L (8-16); Aspartate Amino Transferase 20 U/L (14-36); Bilirubin,Total 0.5 mg/dL (0.2-1.3); Blood Urea Nitrogen 20 mg/dL (7-17); CRP 3.6 mg/dL (<1.0); Calcium 7.8 mg/dL (8.4-10.2); Carbon Dioxide 38 mmol/L (22-30); Chloride 98 mmol/L (98-107); Estimated CRCL calculation 93 ml/min; Estimated Glomerular Filt Rate > 60; Glucose 92 mg/dL (65-110); Lactate Dehydrogenase 817 U/L (313-618); Potassium 3.1 mmol/L (3.4-5.0); Sodium 142 mmol/L (137-145)
[2021-08-29] MEDS: FLUTICASONE/UMECLIDIN/VILANTER 100-62.5-25 MCG ELLIPTA 1 PUFF INHALATION (08:20)
[2021-08-29] MEDS: SALINE 0.65% NAS SOLN 44 ML BTL 1 SPRAY NASAL (09:07)
[2021-08-29] MEDS: PANTOPRAZOLE 40 MG TABLET PO ×2 (09:07→20:49)
[2021-08-29] MEDS: DICYCLOMINE HCL 10 MG CAPSULE 20 MG PO ×2 (09:07→18:54)
[2021-08-29] MEDS: FUROSEMIDE 40 MG TABLET PO (09:07)
[2021-08-29] MEDS: MAGNESIUM OXIDE 400 MG TABLET PO (09:07)
[2021-08-29] MEDS: SERTRALINE HCL 25 MG TABLET PO (09:08)
[2021-08-29] MEDS: LIDOCAINE 5% PATCH 1 PATCH TRANSDERM (09:08)
[2021-08-29] MEDS: CHOLECALCIFEROL 1,000 UNITS TABLET 1000 UNITS PO (09:08)
[2021-08-29] MEDS: DEXAMETHASONE 2 MG TABLET 6 MG PO (09:08)
[2021-08-29] MEDS: METOPROLOL TARTRATE 50 MG TAB PO ×2 (09:08→20:48)
[2021-08-29] MEDS: PENTOXIFYLLINE 400 MG TABCR PO ×2 (09:08→18:55)
[2021-08-29] MEDS: SACUBITRIL/VALSARTAN 12-13 MG TABLET 1 TAB PO ×2 (09:08→20:48)
[2021-08-29] MEDS: FERROUS SULFATE 324 MG TABLET PO ×2 (09:09→18:55)
[2021-08-29] MEDS: PREGABALIN (*CRX) 50 MG CAPSULE PO ×2 (09:14→20:48)
[2021-08-29] MEDS: REMDESIVIR 100 MG/NS 250 ML 100 MG/250 ML BAG 250 MG IVPB (11:06)
--- NOTE | 2021-08-29 11:21 | WPDGIPROGNO ---
Progress Note: A&P Assessment and Plan (1) Chronic anemia: Code(s): D64.9 - Anemia, unspecified Status: Acute Assessment and Plan: Patient has a history of chronic anemia. Melenic stools were described but no evidence for active bleeding. No need to investigated present. Patient known to have a history of erosive gastritis recently evaluated by EGD she should remain on PPI therapy and avoid NSAIDs. (2) Erosive gastritis: Code(s): K29.60 - Other gastritis without bleeding Status: Acute Assessment and Plan: Suggest avoiding NSAIDs. Ppi therapy advised. No need to investigate further unless active bleeding develops. Would defer EGD particularly because of her current active COVID status. (3) Colon polyps: Code(s): K63.5 - Polyp of colon Status: Chronic Assessment and Plan: Patient has a history of several very large adenomatous colon polyps. These are at high risk of turning and to cancer. Surgical resection was advised. But previous surgical consultation suggested she was too high risk to proceed. Perhaps surgical follow-up can be performed at a later date when respiratory status improves. (4) COVID-19: Code(s): U07.1 - COVID-19 Status: Acute (5) Hx of cancer of lung: Code(s): Z85.118 - Personal history of other malignant neoplasm of bronchus and lung Status: Acute (6) COPD (chronic obstructive pulmonary disease): Qualifiers: COPD type: unspecified COPD Qualified Code(s): J44.9 - Chronic obstructive pulmonary disease, unspecified Code(s): J44.9 - Chronic obstructive pulmonary disease, unspecified Status: Chronic Subjective Date/time seen: 08/29/21 11:21 Patient alert and anxious today. Patient seen in follow-up as I have seen her before. Covering for Dr. Haro. Patient denies any obvious blood in her stools. Denies abdominal pain. She has difficulty getting comfortable. Has an underlying history of COPD. History of lung cancer now with COVID. Nursing staff reports no obvious bleeding evident. Review of Systems Review of Systems: All systems reviewed & are unremarkable except as noted in HPI and below Exam Narrative: Physical exam reveals patient be alert. Vital signs stable. HEENT exam is unremarkable. Patient anicteric. Lungs are clear. Heart without murmur. Abdomen is obese soft nontender. Objective Data Vital Signs Vital Signs: Vital Signs - 24 hr 08/28/21 12:00 08/28/21 16:00 08/28/21 20:00 Temperature 97.2 F L 98.0 F 98.5 F Pulse Rate 63 62 88 Respiratory Rate 18 16 20 Blood Pressure 147/49 H 148/65 H 147/78 H Pulse Oximetry 93 95 93 08/28/21 20:11 08/28/21 20:40 08/28/21 20:41 Temperature Pulse Rate 93 92 Respiratory Rate 16 Blood Pressure Pulse Oximetry 95 95 08/29/21 00:00 08/29/21 01:59 08/29/21 04:00 Temperature 97.2 F L 97.8 F Pulse Rate 74 89 83 Respiratory Rate 20 21 H 20 Blood Pressure 140/78 145/65 H Pulse Oximetry 97 94 92 08/29/21 05:14 08/29/21 08:00 08/29/21 09:08 Temperature 97.8 F Pulse Rate 82 101 H Respiratory Rate 18 Blood Pressure 155/61 H Pulse Oximetry 93 94 Intake/Output Intake/Output: Intake & Output 08/26/21 08/27/21 08/28/21 08/29/21 23:59 23:59 23:59 23:59 Intake Total 2090 2460 1940 290 Output Total 1375 2050 600 600 Balance 701 635 4709 -310 Meds/Results Medications: Active Medications Generic Name Dose Route Start Last Admin Trade Name Freq PRN Reason Stop Dose Admin Acetaminophen 500 mg 08/10/21 07:46 08/26/21 10:15 Acetaminophen 500 Mg Tablet PO 500 mg Q6H PRN Administration Pain (1-3) Or Fever Albuterol 1 puff 08/10/21 07:46 Albuterol Sulfate (*Sp) Aerosol 1 Puff INHALATION Q4-6H PRN Shortness Of Breath Dexamethasone 6 mg 08/23/21 12:30 08/29/21 09:08 Dexamethasone 2 Mg Tablet PO 09/01/21 08:01 6 mg DAILY@0800 [facility] Administratio
--- NOTE | 2021-08-29 12:25 | PM.IMPN ---
Progress Note: A&P Assessment and Plan (1) COVID-19: Code(s): U07.1 - COVID-19 Status: Acute Assessment and Plan: Patient tested positive on rapid COVID test confirmed by PCR on August 23, 2021. Patient was appropriately started on remdesivir and dexamethasone. Patient tested positive for COVID-19 on 08/23 and started on remdesivir, dexamethasone on 08/23 - Continue Remdesivir for 10 days Patient complained CPAP. - Dexamethasone 6 mg IV for 10 days - Continuous pulse oximetry - Prone positioning as tolerated. -no evidence of affect and mood. (2) Septicemia: Code(s): A41.9 - Sepsis, unspecified organism Status: Acute Assessment and Plan: Patient had fever, hypotension worsening oxygenation and KONRAD consistent with sepsis. She may have pneumonia and she is also being worked up for a pyelonephritis 08/21/21 Patient grew out methicillin sensitive Staph aureus in 2 blood cultures from 08 17 and has been treated with vancomycin and cefepime. Her mental status has improved. Repeat Blood cultures without growth. Cefepime and vancomycin are stopped on 08/26/2021. Patient started on cefazolin 1 G IV q 8hrs (08/26/2021). (3) Altered mental status: Code(s): R41.82 - Altered mental status, unspecified Status: Acute Assessment and Plan: Altered mental status; patient intermittently sleepy and drowsy continue to hold Lyrica. (4) KONRAD (acute kidney injury): Code(s): N17.9 - Acute kidney failure, unspecified Status: Acute Assessment and Plan: Resolved acute nonoliguric acute kidney injury creatinine stable at 0.8. It is felt to be an acute kidney injury related to ATN. UA noted. (5) Acute and chronic respiratory failure with hypercapnia: Code(s): J96.22 - Acute and chronic respiratory failure with hypercapnia Status: Chronic Assessment and Plan: Secondary to COVID-19 pneumonia keep saturation over 90 (6) COPD exacerbation: Code(s): J44.1 - Chronic obstructive pulmonary disease with (acute) exacerbation Status: Acute Assessment and Plan: No overt wheezing. Appreciate pulmonary input. Continue home medications. As above. (7) Hypokalemia: Code(s): E87.6 - Hypokalemia Status: Acute Assessment and Plan: Replace (8) UTI (urinary tract infection): Code(s): N39.0 - Urinary tract infection, site not specified Status: Acute Assessment and Plan: UA showing 2+ blood, 11-20 red cells and 16-20 white cells. Negative leukocyte esterase and negative nitrates. Urine culture growing Enterococcus species 100 K that is sensitive to ampicillin. Her Khan catheter has been exchanged already. (9) Unresponsive: Code(s): R41.89 - Other symptoms and signs involving cognitive functions and awareness Status: Acute Assessment and Plan: Most likely related to severe sepsis resolved (10) Atrial fibrillation: Qualifiers: Atrial fibrillation type: unspecified Qualified Code(s): I48.91 - Unspecified atrial fibrillation Code(s): I48.91 - Unspecified atrial fibrillation Status: Chronic Assessment and Plan: Patient with chronic atrial fibrillation. Heart rate was well controlled with Coreg. Coreg held due to the hypotension. Resume Coreg as blood pressure tolerates. Continue Xarelto. (11) Congestive heart failure (CHF): Qualifiers: Heart failure type: unspecified Heart failure chronicity: chronic Qualified Code(s): I50.9 - Heart failure, unspecified Code(s): I50.9 - Heart failure, unspecified Status: Chronic Assessment and Plan: Acute on top of chronic diastolic CHF exacerbation developed during hospitalization diuresis daily evaluation (12) Macrocytic anemia: Code(s): D53.9 - Nutritional anemia, unspecified Status: Acute Assessment and Plan: Patient has macrocytic an
[2021-08-29] MEDS: POTASSIUM CHLORIDE 20 MEQ TABLET 40 MEQ PO ×2 (12:52→18:53)
[2021-08-29 13:10] LABS: Magnesium 1.4 mg/dL (1.6-2.3)
--- NOTE | 2021-08-29 13:15 | PCPTNOTE ---
Patient refused treatment this session due to feeling too warm. Talked with nursing and they stated that they just turned turned the air on.
--- NOTE | 2021-08-29 13:17 | PCNFU ---
Nutrition Follow-Up Complete: Inadequate oral intake related to decreased appetite as evidenced by average intake of 10% and pt. refusing several meals. goal: Patient to meet estimated nutritional needs. Patient has limited progress towards goal. We will continue current goal. Pt current nutrition is Regular with Glucerna shakes TID. Last recorded weight is 121.7 kg, up from 119.8 kg on admit. Bowel Motility:+BM reported 08/29 Labs Reviewed:K 3.1,Alb 3.2,Hgb 11.9 Meds Noted:Ferrous Sulfate, Lopressor, Synthroid, Protonix, Remdesivir, Dexamethasone, Vit D, Vit C, Zocor, Zoloft, Vancomycin, KCL tablet, Lyrica. Skin:WNL Additional Notes:Spoke with nursing today due to COVID precautions. Patient continues to have poor po intake. Breakfast today-bites of sausage and some hot tea to drink. She is refusing therapies. Diet has been liberalized to a regular diet today. Diet supplements remain of Glucerna shakes TID providing an additional 220 kcals and 10 gms protein. PO intake encouraged. Agree with diet orders. Monitor pt. labs, medications, weight and oral intake every 3 days.
[2021-08-29] MEDS: ACETAMINOPHEN 500 MG TABLET PO (18:53)
[2021-08-29] MEDS: RIVAROXABAN 20 MG TABLET PO (18:54)
[2021-08-29] MEDS: FUROSEMIDE INJ 40 MG/4 ML VIAL IV PUSH (18:54)
[2021-08-29 19:05] LABS: Basophils Percent Auto 0.3 % (0.2-1.2); Hematocrit 37.5 % (37.0-47.0); Hemoglobin 11.3 g/dL (12.0-15.0); Immature Granulocyte Percent A 2.3 % (0-0.5); Lymphocytes Absolute Auto 0.57 K/mm3 (0.9-3.2); Lymphocytes Percent Auto 6.5 % (18.3-44.2); Mean Corpuscular HGB Conc 30.1 g/dl (32-36); Mean Corpuscular Hemoglobin 31.3 pg (26-34); Mean Corpuscular Volume 103.9 fl (80-100); Mean Platelet Volume 11.7 fl (7.4-10.4); Monocytes Absolute Auto 0.3 K/mm3 (0.1-0.6); Monocytes Percent Auto 3.3 % (2.6-8.5); Neutrophils Absolute Auto 7.6 K/mm3 (1.3-6.7); Neutrophils Percent Auto 87.6 % (45.5-73.1); Platelet Count Result 233 k/mm3 (150-375); Red Blood Count 3.61 M/mm3 (4.2-5.4); Red Cell Distribution Width 15.9 % (11.5-14.5); White Blood Count 8.7 K/mm3 (4.5-10.0)
[2021-08-29 19:17] LABS: Alanine Aminotransferase 10 U/L (4-35); Alkaline Phosphatase 91 U/L (38-126); Anion Gap 7 mmol/L (8-16); Aspartate Amino Transferase 19 U/L (14-36); Bilirubin,Total 0.4 mg/dL (0.2-1.3); Blood Urea Nitrogen 21 mg/dL (7-17); Calcium 7.7 mg/dL (8.4-10.2); Carbon Dioxide 37 mmol/L (22-30); Chloride 97 mmol/L (98-107); Estimated CRCL calculation 71 ml/min; Estimated Glomerular Filt Rate > 60; Glucose 138 mg/dL (65-110); Potassium 3.8 mmol/L (3.4-5.0); Sodium 141 mmol/L (137-145)
[2021-08-29] MEDS: SODIUM CHLORIDE 0.9% IV 1,000 ML 60 ML IV CONT (20:47)
[2021-08-29] MEDS: SIMVASTATIN 20 MG TABLET PO (20:48)
[2021-08-30] VITALS (14 sets, daily range): BP systolic 114–152; BP diastolic 59–96; PULSE 67–98; RESP 18–22; TEMP 36.1–36.9; O2SAT 90–99
[2021-08-30] MEDS: SODIUM CHLORIDE 0.9% IV 1,000 ML 60 ML IV CONT ×2 (00:04→17:16)
[2021-08-30] MEDS: LEVOTHYROXINE SODIUM 125 MCG TABLET PO (05:51)
[2021-08-30 08:07] LABS: INR 3.7; Prothrombin Time 35.8 Seconds (11.1-14.7)
[2021-08-30 08:14] LABS: Alanine Aminotransferase 10 U/L (4-35); CRP 3.7 mg/dL (<1.0); Estimated CRCL calculation 71 ml/min; Estimated Glomerular Filt Rate > 60; Lactate Dehydrogenase 707 U/L (313-618)
[2021-08-30] MEDS: FLUTICASONE/UMECLIDIN/VILANTER 100-62.5-25 MCG ELLIPTA 1 PUFF INHALATION (08:24)
[2021-08-30] MEDS: LIDOCAINE 5% PATCH 1 PATCH TRANSDERM (09:37)
[2021-08-30] MEDS: CHOLECALCIFEROL 1,000 UNITS TABLET 1000 UNITS PO (09:38)
[2021-08-30] MEDS: PANTOPRAZOLE 40 MG TABLET PO ×2 (09:38→23:57)
[2021-08-30] MEDS: METOPROLOL TARTRATE 50 MG TAB PO ×2 (09:38→23:55)
[2021-08-30] MEDS: DICYCLOMINE HCL 10 MG CAPSULE 20 MG PO ×2 (09:38→17:05)
[2021-08-30] MEDS: DEXAMETHASONE 2 MG TABLET 6 MG PO (09:38)
[2021-08-30] MEDS: PREGABALIN (*CRX) 50 MG CAPSULE PO ×2 (09:38→23:00)
[2021-08-30] MEDS: MAGNESIUM OXIDE 400 MG TABLET PO (09:38)
[2021-08-30] MEDS: SERTRALINE HCL 25 MG TABLET PO (09:38)
[2021-08-30] MEDS: FERROUS SULFATE 324 MG TABLET PO ×2 (09:38→17:05)
[2021-08-30] MEDS: PENTOXIFYLLINE 400 MG TABCR PO ×2 (09:38→17:05)
[2021-08-30] MEDS: FUROSEMIDE INJ 40 MG/4 ML VIAL IV PUSH ×2 (09:38→17:05)
[2021-08-30] MEDS: SACUBITRIL/VALSARTAN 12-13 MG TABLET 1 TAB PO ×2 (09:38→23:58)
--- NOTE | 2021-08-30 10:42 | P.PNIM_ITS ---
Progress Note: A&P Assessment and Plan (1) COVID-19: Code(s): U07.1 - COVID-19 Status: Acute Assessment and Plan: Patient tested positive on rapid COVID test confirmed by PCR on August 23, 2021. Patient was appropriately started on remdesivir and dexamethasone. Patient tested positive for COVID-19 on 08/23 and started on remdesivir, dexamethasone on 08/23 - Continue Remdesivir for 10 days -CPAP continue home treatment. - Dexamethasone 6 mg IV for 10 days - Continuous pulse oximetry - Prone positioning as tolerated. -no evidence of affect and mood. (2) Septicemia: Code(s): A41.9 - Sepsis, unspecified organism Status: Acute Assessment and Plan: Patient had fever, hypotension worsening oxygenation and KONRAD consistent with sepsis. She may have pneumonia and she is also being worked up for a pyelonephritis 08/21/21 Patient grew out methicillin sensitive Staph aureus in 2 blood cultures from 08 17 and has been treated with vancomycin and cefepime. Her mental status has improved. Repeat Blood cultures without growth. Cefepime and vancomycin are stopped on 08/26/2021. Patient started on cefazolin 1 G IV q 8hrs (08/26/2021). (3) Altered mental status: Code(s): R41.82 - Altered mental status, unspecified Status: Acute Assessment and Plan: Altered mental status; patient intermittently sleepy and drowsy continue to hold Lyrica. (4) KONRAD (acute kidney injury): Code(s): N17.9 - Acute kidney failure, unspecified Status: Acute Assessment and Plan: Resolved acute nonoliguric acute kidney injury creatinine stable at 0.8. It is felt to be an acute kidney injury related to ATN. UA noted. (5) Acute and chronic respiratory failure with hypercapnia: Code(s): J96.22 - Acute and chronic respiratory failure with hypercapnia Status: Chronic Assessment and Plan: Secondary to COVID-19 pneumonia keep saturation over 90 (6) COPD exacerbation: Code(s): J44.1 - Chronic obstructive pulmonary disease with (acute) exacerbation Status: Acute Assessment and Plan: No overt wheezing. Appreciate pulmonary input. Continue home medications. As above. (7) Hypokalemia: Code(s): E87.6 - Hypokalemia Status: Acute Assessment and Plan: Replace (8) UTI (urinary tract infection): Code(s): N39.0 - Urinary tract infection, site not specified Status: Acute Assessment and Plan: UA showing 2+ blood, 11-20 red cells and 16-20 white cells. Negative leukocyte esterase and negative nitrates. Urine culture growing Enterococcus species 100 K that is sensitive to ampicillin. Her Khan catheter has been exchanged already. (9) Unresponsive: Code(s): R41.89 - Other symptoms and signs involving cognitive functions and awareness Status: Acute Assessment and Plan: Most likely related to severe sepsis resolved (10) Atrial fibrillation: Qualifiers: Atrial fibrillation type: unspecified Qualified Code(s): I48.91 - Unspecified atrial fibrillation Code(s): I48.91 - Unspecified atrial fibrillation Status: Chronic Assessment and Plan: Patient with chronic atrial fibrillation. Heart rate was well controlled with Coreg. Coreg held due to the hypotension. Resume Coreg as blood pressure tolerates. Continue Xarelto. (11) Congestive heart failure (CHF): Qualifiers: Heart failure type: unspecified Heart failure chronicity: chr
[2021-08-30 11:23] LABS: Alveolar/Arterial O2 Gradient 123.1 mmHg; Base Excess ABG 14.1 mEq/l (+/-2.0); Fractional Inspired Oxygen 40 %; HCO3 ABG 43.4 mEq/l (22.0-26.0); Oxygen Saturation ABG 91.3 % (95.0-100.0); Oxyhemoglobin 90.6 % THb (90.0-100.0); PO2 ABG 67.5 mmHg (80.0-100.0); PO2 FiO2 Ratio Arterial Blood 1.69 %; Total Hemoglobin 12.5 g/dL (12.0-18.0)
[2021-08-30 11:24] LABS: Device NASAL CANNULA; Modified Allen's Test Pass; PCO2 ABG 82.3 mmHg (35.0-45.0); Site Drawn LEFT RADIAL
[2021-08-30] MEDS: REMDESIVIR 100 MG/NS 250 ML 100 MG/250 ML BAG 250 MG IVPB (11:30)
--- NOTE | 2021-08-30 11:33 | PCPTNOTE ---
Patient refused treatment this session due to pt wanting to take a nap.
--- NOTE | 2021-08-30 15:14 | PCPTNOTE ---
Patient was unavailable at this time. IV nurse was getting ready to walk in and stated that they were taking the pt down for some testing.
[2021-08-30 15:38] LABS: Alveolar/Arterial O2 Gradient 150.1 mmHg; Base Excess ABG 14.9 mEq/l (+/-2.0); Fractional Inspired Oxygen 40 %; HCO3 ABG 41.5 mEq/l (22.0-26.0); Oxygen Content ABG 15.9 %vol (16.0-22.0); Oxygen Saturation ABG 92.9 % (95.0-100.0); Oxyhemoglobin 92.6 % THb (90.0-100.0); PO2 ABG 64.7 mmHg (80.0-100.0); PO2 FiO2 Ratio Arterial Blood 1.62 %; Total Hemoglobin 12.2 g/dL (12.0-18.0); pH ABG 7.449 (7.350-7.450)
[2021-08-30 15:39] LABS: Device BIPAP; Modified Allen's Test Pass; PCO2 ABG 61.2 mmHg (35.0-45.0); Site Drawn LEFT RADIAL
[2021-08-30 15:40] LABS: Expiratory Pressure 12 cmH2O; Inspiratory Pressure 22 cmH2O
[2021-08-30] MEDS: RIVAROXABAN 20 MG TABLET PO (17:11)
[2021-08-30 17:16] LABS: Basophils Percent Auto 0.2 % (0.2-1.2); Eosinophils Percent Auto 0.1 % (0-4.4); Hematocrit 36.9 % (37.0-47.0); Hemoglobin 11.1 g/dL (12.0-15.0); Immature Granulocyte Absolute 0.14 K/mm3 (0.00-0.031); Immature Granulocyte Percent A 1.6 % (0-0.5); Lymphocytes Absolute Auto 0.62 K/mm3 (0.9-3.2); Lymphocytes Percent Auto 6.9 % (18.3-44.2); Mean Corpuscular HGB Conc 30.1 g/dl (32-36); Mean Corpuscular Hemoglobin 31.2 pg (26-34); Mean Corpuscular Volume 103.7 fl (80-100); Mean Platelet Volume 11.2 fl (7.4-10.4); Monocytes Absolute Auto 0.3 K/mm3 (0.1-0.6); Monocytes Percent Auto 2.8 % (2.6-8.5); Neutrophils Absolute Auto 7.9 K/mm3 (1.3-6.7); Neutrophils Percent Auto 88.4 % (45.5-73.1); Platelet Count Result 191 k/mm3 (150-375); Red Blood Count 3.56 M/mm3 (4.2-5.4); Red Cell Distribution Width 15.9 % (11.5-14.5)
[2021-08-30 17:28] LABS: Alanine Aminotransferase 9 U/L (4-35); Alkaline Phosphatase 79 U/L (38-126); Aspartate Amino Transferase 17 U/L (14-36); Bilirubin,Total 0.4 mg/dL (0.2-1.3); Blood Urea Nitrogen 19 mg/dL (7-17); Calcium 7.4 mg/dL (8.4-10.2); Carbon Dioxide > 40 mmol/L (22-30); Chloride 97 mmol/L (98-107); Estimated CRCL calculation 81 ml/min; Estimated Glomerular Filt Rate > 60; Glucose 147 mg/dL (65-110); Potassium 3.9 mmol/L (3.4-5.0); Sodium 141 mmol/L (137-145)
[2021-08-30] MEDS: ACETAMINOPHEN 500 MG TABLET PO (18:50)
[2021-08-30] MEDS: SIMVASTATIN 20 MG TABLET PO (23:59)
[2021-08-31] VITALS (16 sets, daily range): BP systolic 126–150; BP diastolic 57–82; PULSE 65–106; RESP 16–20; TEMP 36.1–36.4; O2SAT 91–96
[2021-08-31] MEDS: LEVOTHYROXINE SODIUM 125 MCG TABLET PO (05:39)
[2021-08-31 07:54] LABS: Alanine Aminotransferase 8 U/L (4-35)
[2021-08-31 07:55] LABS: Lactate Dehydrogenase 710 U/L (313-618)
[2021-08-31 08:10] LABS: INR 2.1; Prothrombin Time 22.7 Seconds (11.1-14.7)
[2021-08-31] MEDS: FLUTICASONE/UMECLIDIN/VILANTER 100-62.5-25 MCG ELLIPTA 1 PUFF INHALATION (08:16)
[2021-08-31] MEDS: DICYCLOMINE HCL 10 MG CAPSULE 20 MG PO ×2 (08:19→21:30)
[2021-08-31] MEDS: DEXAMETHASONE 2 MG TABLET 6 MG PO (08:19)
[2021-08-31] MEDS: PENTOXIFYLLINE 400 MG TABCR PO ×2 (08:19→21:30)
[2021-08-31] MEDS: SERTRALINE HCL 25 MG TABLET PO (08:19)
[2021-08-31] MEDS: FUROSEMIDE INJ 40 MG/4 ML VIAL IV PUSH (08:19)
[2021-08-31] MEDS: FERROUS SULFATE 324 MG TABLET PO ×2 (08:20→21:30)
[2021-08-31] MEDS: MAGNESIUM OXIDE 400 MG TABLET PO (08:20)
[2021-08-31] MEDS: METOPROLOL TARTRATE 50 MG TAB PO ×2 (08:20→21:31)
[2021-08-31] MEDS: SACUBITRIL/VALSARTAN 12-13 MG TABLET 1 TAB PO ×2 (08:20→21:30)
[2021-08-31] MEDS: CHOLECALCIFEROL 1,000 UNITS TABLET 1000 UNITS PO (08:20)
[2021-08-31] MEDS: PANTOPRAZOLE 40 MG TABLET PO ×2 (08:20→21:32)
[2021-08-31] MEDS: PREGABALIN (*CRX) 50 MG CAPSULE PO ×2 (08:24→21:34)
--- NOTE | 2021-08-31 08:47 | P.PNPL_ITS ---
Progress Note: A&P Assessment and Plan (1) Acute and chronic respiratory failure with hypercapnia: Code(s): J96.22 - Acute and chronic respiratory failure with hypercapnia Status: Chronic Assessment and Plan: 08/16 Patient with a history of COPD and acute on chronic respiratory failure with hypercapnia requiring a noninvasive ventilator previously and now that she is at [facility] she has been maintained on BiPAP 20/15. She is non compliant from her download between 07/16 and 08/14 demonstrating usage greater than or equal to 4 hours at 2 of 30 days or 7%. Today she told me that previously when she did wear her mask and machine she did better. Patient is in agreement to continue her mask and machine at this time and has tolerated AVAPS rate of 16, tidal volume 500, expiratory pressure 6, minimum inspiratory pressure 9, maximal inspiratory pressure 25 with saturations 97% on 50%. At this time I do not feel there is a pneumonia, COPD exacerbation and I will continue her home trilogy 100-60 2.5-25 at 1 puff Q 24 hours. currently she is on 4 L nasal cannula with saturations 95%. She tells me at home she wears 3 during the day and for at night so she is close to her baseline. She had a blood gas on 08/16 on 2 L of 7.39/63/72. will obtain an overnight oximetry tonight on AVAPS (Rate of 16, tidal volume 500, EPAP 6, minimal IPAP 12, maximal IPAP 30, inspiratory time 1.2, rise of 5, FIO2 40%) and ABG in morning on AVAPS. 08/17 Patient with altered mental status this morning. Patient did receive [place] last night and this morning. Her fingerstick was 128. Stat blood gas demonstrates a pH of 7.38/72/51 on 3 L nasal cannula and she has been increased to 4 and half L nasal cannula and her saturations are 90%. She does have a chronic respiratory acidosis that is compensated with a pH of 7.38. I do not believe that hypercarbic respiratory failure is causing her altered mental status. 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 She does have bilateral upper extremity tremors. Creatinine is 1.0 white blood cell count is 10.7. Ammonia level is normal. Stat head CT has been performed and there is no acute changes. There are no wheezes on exam and I will continue her trilogy 100-62.5-25. Diuresed 3.6 liters since admission. Patient wore her noninvasive ventilation with AVAPS mode last night with a rate of 16, tidal volume 500, EPAP 6, minimal inspiratory pressure 12, maximal inspiratory pressure 35 with 40%. no blood gas was performed at the end of the night on the settings. Patient had an overnight oximetry on these settings with her average saturation 94%. Time with saturation less than or equal to 88% was 0 minutes. 08/18 Patient had fever, hypotension worsening oxygenation and KONRAD consistent with sepsis. She may have pneumonia and she is also being worked up for a pyelonephritis. Patient does have worsening of her chronic back pain. Blood cu ltures are negative. Patient's mental status has slowly improved she is still lethargic but now follow simple commands. Patient wore her noninvasive ventilator with the AVAPS mode continuously overnight. She has developed acute renal failure and had a fever last night of 37.7 was empirically started on vancomycin and cefepime on 08/17. Chest x-ray showed elevated right hemidiaphragm and continued stable right lung and left lung infiltrates. I was able to take her off of BiPAP for approximately 15 minutes and the patient then had desaturations despite 15 L nasal cannula. She complained of excruciating back pain and may require imaging in the future. No wheezes on exam and will continue trelegy.
[2021-08-31] MEDS: REMDESIVIR 100 MG/NS 250 ML 100 MG/250 ML BAG 250 MG IVPB (10:30)
--- NOTE | 2021-08-31 10:56 | PM.IMPN ---
Progress Note: A&P Assessment and Plan (1) COVID-19: Code(s): U07.1 - COVID-19 Status: Acute Assessment and Plan: Patient tested positive on rapid COVID test confirmed by PCR on August 23, 2021. Patient was appropriately started on remdesivir and dexamethasone. Patient tested positive for COVID-19 on 08/23 and started on remdesivir, dexamethasone on 08/23 - Continue Remdesivir for 10 days -CPAP continue home treatment. - Dexamethasone 6 mg IV for 10 days - Continuous pulse oximetry - Prone positioning as tolerated. -no evidence of affect and mood. (2) Septicemia: Code(s): A41.9 - Sepsis, unspecified organism Status: Acute Assessment and Plan: Patient had fever, hypotension worsening oxygenation and KONRAD consistent with sepsis. She may have pneumonia and she is also being worked up for a pyelonephritis 08/21/21 Patient grew out methicillin sensitive Staph aureus in 2 blood cultures from 08 17 and has been treated with vancomycin and cefepime. Her mental status has improved. Repeat Blood cultures without growth. Cefepime and vancomycin are stopped on 08/26/2021. Patient started on cefazolin 1 G IV q 8hrs (08/26/2021). (3) Altered mental status: Code(s): R41.82 - Altered mental status, unspecified Status: Acute Assessment and Plan: Altered mental status; patient is more alert (4) KONRAD (acute kidney injury): Code(s): N17.9 - Acute kidney failure, unspecified Status: Acute Assessment and Plan: Resolved acute nonoliguric acute kidney injury creatinine stable at 0.8. It is felt to be an acute kidney injury related to ATN. UA noted. (5) Acute and chronic respiratory failure with hypercapnia: Code(s): J96.22 - Acute and chronic respiratory failure with hypercapnia Status: Chronic Assessment and Plan: Secondary to COVID-19 pneumonia keep saturation over 90 (6) COPD exacerbation: Code(s): J44.1 - Chronic obstructive pulmonary disease with (acute) exacerbation Status: Acute Assessment and Plan: Appreciate pulmonary input. Continue home medications. Continue inhaler treatment (7) Hypokalemia: Code(s): E87.6 - Hypokalemia Status: Acute Assessment and Plan: Replaced (8) UTI (urinary tract infection): Code(s): N39.0 - Urinary tract infection, site not specified Status: Acute Assessment and Plan: UA showing 2+ blood, 11-20 red cells and 16-20 white cells. Negative leukocyte esterase and negative nitrates. Urine culture growing Enterococcus species 100 K that is sensitive to ampicillin. Her Khan catheter has been exchanged already. (9) Unresponsive: Code(s): R41.89 - Other symptoms and signs involving cognitive functions and awareness Status: Acute Assessment and Plan: Most likely related to severe sepsis resolved (10) Atrial fibrillation: Qualifiers: Atrial fibrillation type: unspecified Qualified Code(s): I48.91 - Unspecified atrial fibrillation Code(s): I48.91 - Unspecified atrial fibrillation Status: Chronic Assessment and Plan: Patient with chronic atrial fibrillation. Heart rate was well controlled with Coreg. Coreg held due to the hypotension. Resume Coreg as blood pressure tolerates. Xarelto held on 08/31/2021 for thoracentesis on 09/01/2021 no plan for bridging (11) Congestive heart failure (CHF): Qualifiers: Heart failure type: unspecified Heart failure chronicity: chronic Qualified Code(s): I50.9 - Heart failure, unspecified Code(s): I50.9 - Heart failure, unspecified Status: Chronic Assessment and Plan: Acute on top of chronic diastolic CHF exacerbation developed during hospitalization diuresis daily evaluation (12) Macrocytic anemia: Code(s): D53.9 - Nutritional anemia, unspecified Status: Acute Assessment and Plan: Shira
[2021-08-31] MEDS: LIDOCAINE 5% PATCH 1 PATCH TRANSDERM (11:08)
[2021-08-31 12:56] LABS: Basophils Percent Auto 0.3 % (0.2-1.2); Eosinophils Absolute Auto 0.1 K/mm3 (0-0.3); Eosinophils Percent Auto 0.8 % (0-4.4); Hematocrit 36.6 % (37.0-47.0); Immature Granulocyte Absolute 0.14 K/mm3 (0.00-0.031); Immature Granulocyte Percent A 1.2 % (0-0.5); Lymphocytes Absolute Auto 0.76 K/mm3 (0.9-3.2); Lymphocytes Percent Auto 6.4 % (18.3-44.2); Mean Corpuscular HGB Conc 30.1 g/dl (32-36); Mean Corpuscular Hemoglobin 31.3 pg (26-34); Mean Platelet Volume 11.6 fl (7.4-10.4); Monocytes Absolute Auto 0.6 K/mm3 (0.1-0.6); Monocytes Percent Auto 4.7 % (2.6-8.5); Neutrophils Absolute Auto 10.2 K/mm3 (1.3-6.7); Neutrophils Percent Auto 86.6 % (45.5-73.1); Platelet Count Result 191 k/mm3 (150-375); Red Blood Count 3.52 M/mm3 (4.2-5.4); Red Cell Distribution Width 16.2 % (11.5-14.5); White Blood Count 11.8 K/mm3 (4.5-10.0)
[2021-08-31 13:10] LABS: Alanine Aminotransferase 8 U/L (4-35); Albumin Level 2.9 g/dL (3.5-5.1); Alkaline Phosphatase 78 U/L (38-126); Aspartate Amino Transferase 16 U/L (14-36); Bilirubin,Total 0.4 mg/dL (0.2-1.3); Blood Urea Nitrogen 22 mg/dL (7-17); Calcium 7.2 mg/dL (8.4-10.2); Carbon Dioxide > 40 mmol/L (22-30); Chloride 94 mmol/L (98-107); Estimated CRCL calculation 64 ml/min; Estimated Glomerular Filt Rate > 60; Glucose 111 mg/dL (65-110); Magnesium 1.1 mg/dL (1.6-2.3); Potassium 3.4 mmol/L (3.4-5.0); Sodium 142 mmol/L (137-145)
[2021-08-31] MEDS: SIMVASTATIN 20 MG TABLET PO (22:21)
[2021-09-01] VITALS (15 sets, daily range): BP systolic 115–154; BP diastolic 52–81; PULSE 68–95; RESP 10–22; TEMP 36.1–36.8; O2SAT 91–96
[2021-09-01] MEDS: SODIUM CHLORIDE 0.9% IV 1,000 ML 60 ML IV CONT (01:33)
[2021-09-01] MEDS: LEVOTHYROXINE SODIUM 125 MCG TABLET PO (06:17)
--- NOTE | 2021-09-01 07:14 | PM.PNPUL ---
Progress Note: A&P Assessment and Plan (1) Acute and chronic respiratory failure with hypercapnia: Code(s): J96.22 - Acute and chronic respiratory failure with hypercapnia Status: Chronic Assessment and Plan: 08/16 Patient with a history of COPD and acute on chronic respiratory failure with hypercapnia requiring a noninvasive ventilator previously and now that she is at [facility] she has been maintained on BiPAP 20/15. She is non compliant from her download between 07/16 and 08/14 demonstrating usage greater than or equal to 4 hours at 2 of 30 days or 7%. Today she told me that previously when she did wear her mask and machine she did better. Patient is in agreement to continue her mask and machine at this time and has tolerated AVAPS rate of 16, tidal volume 500, expiratory pressure 6, minimum inspiratory pressure 9, maximal inspiratory pressure 25 with saturations 97% on 50%. At this time I do not feel there is a pneumonia, COPD exacerbation and I will continue her home trilogy 100-60 2.5-25 at 1 puff Q 24 hours. currently she is on 4 L nasal cannula with saturations 95%. She tells me at home she wears 3 during the day and for at night so she is close to her baseline. She had a blood gas on 08/16 on 2 L of 7.39/63/72. will obtain an overnight oximetry tonight on AVAPS (Rate of 16, tidal volume 500, EPAP 6, minimal IPAP 12, maximal IPAP 30, inspiratory time 1.2, rise of 5, FIO2 40%) and ABG in morning on AVAPS. 08/17 Patient with altered mental status this morning. Patient did receive [place] last night and this morning. Her fingerstick was 128. Stat blood gas demonstrates a pH of 7.38/72/51 on 3 L nasal cannula and she has been increased to 4 and half L nasal cannula and her saturations are 90%. She does have a chronic respiratory acidosis that is compensated with a pH of 7.38. I do not believe that hypercarbic respiratory failure is causing her altered mental status. 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 She does have bilateral upper extremity tremors. Creatinine is 1.0 white blood cell count is 10.7. Ammonia level is normal. Stat head CT has been performed and there is no acute changes. There are no wheezes on exam and I will continue her trilogy 100-62.5-25. Diuresed 3.6 liters since admission. Patient wore her noninvasive ventilation with AVAPS mode last night with a rate of 16, tidal volume 500, EPAP 6, minimal inspiratory pressure 12, maximal inspiratory pressure 35 with 40%. no blood gas was performed at the end of the night on the settings. Patient had an overnight oximetry on these settings with her average saturation 94%. Time with saturation less than or equal to 88% was 0 minutes. 08/18 Patient had fever, hypotension worsening oxygenation and KONRAD consistent with sepsis. She may have pneumonia and she is also being worked up for a pyelonephritis. Patient does have worsening of her chronic back pain. Blood cultures are negative. Patient's mental status has slowly improved she is still lethargic but now follow simple commands. Patient wore her noninvasive ventilator with the AVAPS mode continuously overnight. She has developed acute renal failure and had a fever last night of 37.7 was empirically started on vancomycin and cefepime on 08/17. Chest x-ray showed elevated right hemidiaphragm and continued stable right lung and left lung infiltrates. I was able to take her off of BiPAP for approximately 15 minutes and the patient then had desaturations despite 15 L nasal cannula. She complained of excruciating back pain and may require imaging in the future. No wheezes on exam and will continue trelegy. 08/21/21 Patient grew out methicillin sensitive Staph aureus in 2 blood cultures from 08 17 and has been treated with vancomycin and cefepime. Her mental status has improved. Her acute kidney injury has resolved. Fidel
[2021-09-01] MEDS: FLUTICASONE/UMECLIDIN/VILANTER 100-62.5-25 MCG ELLIPTA 1 PUFF INHALATION (08:06)
[2021-09-01 08:38] LABS: Basophils Percent Auto 0.2 % (0.2-1.2); Eosinophils Absolute Auto 0.1 K/mm3 (0-0.3); Eosinophils Percent Auto 0.7 % (0-4.4); Hemoglobin 11.2 g/dL (12.0-15.0); Immature Granulocyte Absolute 0.09 K/mm3 (0.00-0.031); Lymphocytes Absolute Auto 0.94 K/mm3 (0.9-3.2); Lymphocytes Percent Auto 10.6 % (18.3-44.2); Mean Corpuscular HGB Conc 31.1 g/dl (32-36); Mean Corpuscular Hemoglobin 31.4 pg (26-34); Mean Corpuscular Volume 100.8 fl (80-100); Monocytes Absolute Auto 0.7 K/mm3 (0.1-0.6); Monocytes Percent Auto 7.5 % (2.6-8.5); Neutrophils Absolute Auto 7.1 K/mm3 (1.3-6.7); Platelet Count Result 164 k/mm3 (150-375); Red Blood Count 3.57 M/mm3 (4.2-5.4); Red Cell Distribution Width 15.9 % (11.5-14.5); White Blood Count 8.9 K/mm3 (4.5-10.0)
[2021-09-01] MEDS: MAGNESIUM OXIDE 400 MG TABLET PO (08:44)
[2021-09-01] MEDS: PANTOPRAZOLE 40 MG TABLET PO ×2 (08:44→20:16)
[2021-09-01] MEDS: PREGABALIN (*CRX) 50 MG CAPSULE PO ×2 (08:44→20:15)
[2021-09-01] MEDS: FERROUS SULFATE 324 MG TABLET PO ×2 (08:44→16:55)
[2021-09-01] MEDS: PENTOXIFYLLINE 400 MG TABCR PO ×2 (08:44→16:55)
[2021-09-01] MEDS: DEXAMETHASONE 2 MG TABLET 6 MG PO (08:44)
[2021-09-01] MEDS: SACUBITRIL/VALSARTAN 12-13 MG TABLET 1 TAB PO ×2 (08:44→20:15)
[2021-09-01] MEDS: SERTRALINE HCL 25 MG TABLET PO (08:44)
[2021-09-01] MEDS: CHOLECALCIFEROL 1,000 UNITS TABLET 1000 UNITS PO (08:44)
[2021-09-01] MEDS: DICYCLOMINE HCL 10 MG CAPSULE 20 MG PO ×2 (08:44→16:55)
[2021-09-01 08:45] LABS: INR 1.4; Prothrombin Time 17.1 Seconds (11.1-14.7)
[2021-09-01] MEDS: FUROSEMIDE INJ 40 MG/4 ML VIAL IV PUSH (08:45)
[2021-09-01] MEDS: LIDOCAINE 5% PATCH 1 PATCH TRANSDERM (08:45)
[2021-09-01] MEDS: METOPROLOL TARTRATE 50 MG TAB PO ×2 (08:45→20:16)
[2021-09-01 08:46] LABS: Partial Thromboplastin Time 29.7 SECONDS (22.3-36.8)
[2021-09-01 08:56] LABS: Alanine Aminotransferase 7 U/L (4-35); Alkaline Phosphatase 79 U/L (38-126); Aspartate Amino Transferase 18 U/L (14-36); Bilirubin,Total 0.4 mg/dL (0.2-1.3); Blood Urea Nitrogen 25 mg/dL (7-17); CRP 4.3 mg/dL (<1.0); Carbon Dioxide > 40 mmol/L (22-30); Chloride 94 mmol/L (98-107); Estimated CRCL calculation 81 ml/min; Estimated Glomerular Filt Rate > 60; Glucose 104 mg/dL (65-110); Lactate Dehydrogenase 667 U/L (313-618); Potassium 3.1 mmol/L (3.4-5.0); Sodium 142 mmol/L (137-145)
[2021-09-01] MEDS: REMDESIVIR 100 MG/NS 250 ML 100 MG/250 ML BAG 250 MG IVPB (11:13)
--- NOTE | 2021-09-01 12:07 | PM.IMPN ---
Progress Note: A&P Assessment and Plan (1) COVID-19: Code(s): U07.1 - COVID-19 Status: Acute Assessment and Plan: Patient tested positive on rapid COVID test confirmed by PCR on August 23, 2021. Patient was appropriately started on remdesivir and dexamethasone. Patient tested positive for COVID-19 on 08/23 and started on remdesivir, dexamethasone on 05/28 - Continue Remdesivir for 10 days -CPAP continue home treatment. - Dexamethasone 6 mg IV for 05/28 days - Continuous pulse oximetry - Prone positioning as tolerated. -no evidence of affect and mood. (2) Septicemia: Code(s): A41.9 - Sepsis, unspecified organism Status: Acute Assessment and Plan: Patient had fever, hypotension worsening oxygenation and KONRAD consistent with sepsis. She may have pneumonia and she is also being worked up for a pyelonephritis 08/17/2022 Patient grew out methicillin sensitive Staph aureus in 2 blood cultures from 08 17 and has been treated with vancomycin and cefepime. Her mental status has improved. Repeat Blood cultures without growth. Cefepime and vancomycin are stopped on 08/26/2021. Patient started on cefazolin 1 G IV q 8hrs (08/26/2021). First negative culture was 11/07 Patient will complete 2 weeks of IV antibiotic after negative culture on 09/04/2021 (3) Altered mental status: Code(s): R41.82 - Altered mental status, unspecified Status: Acute Assessment and Plan: Altered mental status; patient is more alert (4) KONRAD (acute kidney injury): Code(s): N17.9 - Acute kidney failure, unspecified Status: Acute Assessment and Plan: Resolved acute nonoliguric acute kidney injury creatinine stable at 0.8. It is felt to be an acute kidney injury related to ATN. UA noted. (5) Acute and chronic respiratory failure with hypercapnia: Code(s): J96.22 - Acute and chronic respiratory failure with hypercapnia Status: Chronic Assessment and Plan: Secondary to COVID-19 pneumonia keep saturation over 90 (6) COPD exacerbation: Code(s): J44.1 - Chronic obstructive pulmonary disease with (acute) exacerbation Status: Acute Assessment and Plan: Appreciate pulmonary input. Continue home medications. Continue inhaler treatment (7) Hypokalemia: Code(s): E87.6 - Hypokalemia Status: Acute Assessment and Plan: Replaced (8) UTI (urinary tract infection): Code(s): N39.0 - Urinary tract infection, site not specified Status: Acute Assessment and Plan: UA showing 2+ blood, 11-20 red cells and 16-20 white cells. Negative leukocyte esterase and negative nitrates. Urine culture growing Enterococcus species 100 K that is sensitive to ampicillin. Her Khan catheter has been exchanged already. (9) Unresponsive: Code(s): R41.89 - Other symptoms and signs involving cognitive functions and awareness Status: Acute Assessment and Plan: Most likely related to severe sepsis resolved (10) Atrial fibrillation: Qualifiers: Atrial fibrillation type: unspecified Qualified Code(s): I48.91 - Unspecified atrial fibrillation Code(s): I48.91 - Unspecified atrial fibrillation Status: Chronic Assessment and Plan: Patient with chronic atrial fibrillation. Heart rate was well controlled with Coreg. Coreg held due to the hypotension. Resume Coreg as blood pressure tolerates. Xarelto held on 08/31/2021 for thoracentesis on 09/01/2021 no plan for bridging (11) Congestive heart failure (CHF): Qualifiers: Heart failure type: unspecified Heart failure chronicity: chronic Qualified Code(s): I50.9 - Heart failure, unspecified Code(s): I50.9 - Heart failure, unspecified Status: Chronic Assessment and Plan: Acute on top of chronic diastolic CHF exacerbation developed during hospitalization diuresis daily evaluation (12) Rosas
--- NOTE | 2021-09-01 15:53 | PCNFU ---
Nutrition Follow-Up Complete: Inadequate oral intake related to decreased appetite as evidenced by average intake of 10% and pt. refusing several meals. Goal: Patient to meet estimated nutritional needs. Pt is slowly progressing towards goal Pt current nutrition is Regular diet and dietary supplement Last recorded weight is 121.7 kg. Bowel Motility: LBM reported 08/29 Labs Reviewed: hgb 11.2, hct 36.0, alb 3.0, Cl 94, K 3.1, Ca 7.0, BUN 25, Mg 1.0, LDH 667 Meds Noted: ferrous sulfate, lasix, synthroid, mag-ox, protonix, trental, lyrica, entresto, zoloft, vitamin D Skin: sacrum maceration, bilateral skin fold groin maceration Additional Notes: Unable to visit with pt due to following covid precautions. Per EMR, pt is on a regular diet and dietary supplement of glucerna shake TID providing an additional 220kcal and 10g of protein. Per EMR, reported intake is 50% x2, 0% x2, 10%, and 25% x2. Spoke to nursing who that pt is hit or miss when it comes to intake. Nursing reports that pt eats more some days than others. Nursing reports that pt is not drinking the glucerna shake due to pt not like the taste of them. RDN placed orders to switch dietary supplement to frozen nutritional treat BID to provide an additional 300kcal and 9g of protein to increase caloric intake. Nursing has been made aware of this and agrees to continue to encourage intake of regular diet and frozen nutritional treat. Agree with diet orders at this time. Will continue to follow. Monitor pt. labs, medications, weight and oral intake every 3 days.
[2021-09-01] MEDS: SIMVASTATIN 20 MG TABLET PO (20:16)
[2021-09-02] VITALS (11 sets, daily range): BP systolic 106–137; BP diastolic 53–80; PULSE 60–90; RESP 16–20; TEMP 36–36.7; O2SAT 92–98
[2021-09-02] MEDS: LEVOTHYROXINE SODIUM 125 MCG TABLET PO (05:56)
[2021-09-02 07:16] LABS: Basophils Percent Auto 0.1 % (0.2-1.2); Eosinophils Percent Auto 0.3 % (0-4.4); Hematocrit 35.4 % (37.0-47.0); Hemoglobin 10.7 g/dL (12.0-15.0); Immature Granulocyte Absolute 0.05 K/mm3 (0.00-0.031); Immature Granulocyte Percent A 0.7 % (0-0.5); Lymphocytes Absolute Auto 1.18 K/mm3 (0.9-3.2); Lymphocytes Percent Auto 16.1 % (18.3-44.2); Mean Corpuscular HGB Conc 30.2 g/dl (32-36); Mean Corpuscular Hemoglobin 31.1 pg (26-34); Mean Corpuscular Volume 102.9 fl (80-100); Mean Platelet Volume 12.6 fl (7.4-10.4); Monocytes Absolute Auto 0.5 K/mm3 (0.1-0.6); Monocytes Percent Auto 7.4 % (2.6-8.5); Neutrophils Absolute Auto 5.5 K/mm3 (1.3-6.7); Neutrophils Percent Auto 75.4 % (45.5-73.1); Platelet Count Result 133 k/mm3 (150-375); Red Blood Count 3.44 M/mm3 (4.2-5.4); White Blood Count 7.3 K/mm3 (4.5-10.0)
[2021-09-02] MEDS: FLUTICASONE/UMECLIDIN/VILANTER 100-62.5-25 MCG ELLIPTA 1 PUFF INHALATION (08:28)
[2021-09-02 08:33] LABS: Alanine Aminotransferase 10 U/L (4-35); Albumin Level 2.8 g/dL (3.5-5.1); Alkaline Phosphatase 73 U/L (38-126); Aspartate Amino Transferase 15 U/L (14-36); Bilirubin,Total 0.3 mg/dL (0.2-1.3); Blood Urea Nitrogen 28 mg/dL (7-17); CRP 4.1 mg/dL (<1.0); Calcium 6.8 mg/dL (8.4-10.2); Carbon Dioxide > 40 mmol/L (22-30); Chloride 96 mmol/L (98-107); Estimated CRCL calculation 71 ml/min; Estimated Glomerular Filt Rate > 60; Glucose 89 mg/dL (65-110); Lactate Dehydrogenase 704 U/L (313-618); Magnesium 0.9 mg/dL (1.6-2.3); Potassium 3.3 mmol/L (3.4-5.0); Sodium 142 mmol/L (137-145)
[2021-09-02] MEDS: PREGABALIN (*CRX) 50 MG CAPSULE PO ×2 (08:55→22:00)
[2021-09-02] MEDS: CHOLECALCIFEROL 1,000 UNITS TABLET 1000 UNITS PO (08:55)
[2021-09-02] MEDS: DICYCLOMINE HCL 10 MG CAPSULE 20 MG PO ×2 (08:55→16:38)
[2021-09-02] MEDS: FERROUS SULFATE 324 MG TABLET PO ×2 (08:55→16:38)
[2021-09-02] MEDS: METOPROLOL TARTRATE 50 MG TAB PO ×2 (08:56→22:00)
[2021-09-02] MEDS: MAGNESIUM OXIDE 400 MG TABLET PO (08:56)
[2021-09-02] MEDS: FUROSEMIDE INJ 40 MG/4 ML VIAL IV PUSH (08:56)
[2021-09-02] MEDS: LIDOCAINE 5% PATCH 1 PATCH TRANSDERM (08:56)
[2021-09-02] MEDS: PENTOXIFYLLINE 400 MG TABCR PO ×2 (08:57→16:38)
[2021-09-02] MEDS: PANTOPRAZOLE 40 MG TABLET PO ×2 (08:57→22:02)
[2021-09-02] MEDS: SERTRALINE HCL 25 MG TABLET PO (08:57)
[2021-09-02] MEDS: SACUBITRIL/VALSARTAN 12-13 MG TABLET 1 TAB PO ×2 (08:57→22:00)
--- NOTE | 2021-09-02 09:17 | P.PNIM_ITS ---
Progress Note: A&P Assessment and Plan (1) COVID-19: Code(s): U07.1 - COVID-19 Status: Acute Assessment and Plan: Patient tested positive on rapid COVID test confirmed by PCR on August 23, 2021. Patient was appropriately started on remdesivir and dexamethasone. Patient tested positive for COVID-19 on 08/23 and started on remdesivir, dexamethasone on 05/28 - Continue Remdesivir for 10 days -CPAP continue home treatment. - Dexamethasone 6 mg IV for 05/28 days - Continuous pulse oximetry - Prone positioning as tolerated. -no evidence of affect and mood. (2) Septicemia: Code(s): A41.9 - Sepsis, unspecified organism Status: Acute Assessment and Plan: Patient had fever, hypotension worsening oxygenation and KONRAD consistent with sepsis. She may have pneumonia and she is also being worked up for a pyelonephritis 08/17/2022 Patient grew out methicillin sensitive Staph aureus in 2 blood cultures from 08 17 and has been treated with vancomycin and cefepime. Her mental status has improved. Repeat Blood cultures without growth. Cefepime and vancomycin are stopped on 08/26/2021. Patient started on cefazolin 1 G IV q 8hrs (08/26/2021). First negative culture was 11/07 Patient will complete 2 weeks of IV antibiotic after negative culture on 2021 (3) Altered mental status: Code(s): R41.82 - Altered mental status, unspecified Status: Acute Assessment and Plan: Altered mental status; patient is more alert (4) KONRAD (acute kidney injury): Code(s): N17.9 - Acute kidney failure, unspecified Status: Acute Assessment and Plan: Resolved acute nonoliguric acute kidney injury creatinine stable at 0.8. It is felt to be an acute kidney injury related to ATN. UA noted. (5) Acute and chronic respiratory failure with hypercapnia: Code(s): J96.22 - Acute and chronic respiratory failure with hypercapnia Status: Chronic Assessment and Plan: Secondary to COVID-19 pneumonia keep saturation over 90 (6) COPD exacerbation: Code(s): J44.1 - Chronic obstructive pulmonary disease with (acute) exacerbation Status: Acute Assessment and Plan: Appreciate pulmonary input. Continue home medications. Continue inhaler treatment (7) Hypokalemia: Code(s): E87.6 - Hypokalemia Status: Acute Assessment and Plan: Replaced (8) UTI (urinary tract infection): Code(s): N39.0 - Urinary tract infection, site not specified Status: Acute Assessment and Plan: UA showing 2+ blood, 11-20 red cells and 16-20 white cells. Negative leukocyte esterase and negative nitrates. Urine culture growing Enterococcus species 100 K that is sensitive to ampicillin. Her Khan catheter has been exchanged already. (9) Unresponsive: Code(s): R41.89 - Other symptoms and signs involving cognitive functions and awareness Status: Acute Assessment and Plan: Most likely related to severe sepsis resolved (10) Atrial fibrillation: Qualifiers: Atrial fibrillation type: unspecified Qualified Code(s): I48.91 - Unspecified atrial fibrillation Code(s): I48.91 - Unspecified atrial fibrillation Status: Chronic Assessment and Plan: Patient with chronic atrial fibrillation. Heart rate was well controlled with Coreg. Coreg held due to the hypotension. Resume Coreg as blood pressure tolerates. Xarelto held on 08/31/2021 for thoracentesis on 09/01/2021 no plan for
[2021-09-02] MEDS: POTASSIUM CHLORIDE 20 MEQ TABLET 40 MEQ PO (13:23)
[2021-09-02] MEDS: RIVAROXABAN 20 MG TABLET PO (16:39)
[2021-09-02] MEDS: SIMVASTATIN 20 MG TABLET PO (22:00)
[2021-09-03] VITALS (12 sets, daily range): BP systolic 102–134; BP diastolic 50–66; PULSE 74–96; RESP 16–20; TEMP 35.5–36.6; O2SAT 91–97
[2021-09-03] MEDS: SODIUM CHLORIDE 0.9% IV 1,000 ML 60 ML IV CONT (05:44)
[2021-09-03] MEDS: LEVOTHYROXINE SODIUM 125 MCG TABLET PO (05:44)
[2021-09-03 06:46] LABS: Basophils Percent Auto 0.3 % (0.2-1.2); Eosinophils Absolute Auto 0.1 K/mm3 (0-0.3); Eosinophils Percent Auto 1.5 % (0-4.4); Hematocrit 38.1 % (37.0-47.0); Hemoglobin 11.3 g/dL (12.0-15.0); Immature Granulocyte Absolute 0.05 K/mm3 (0.00-0.031); Immature Granulocyte Percent A 0.7 % (0-0.5); Lymphocytes Absolute Auto 1.11 K/mm3 (0.9-3.2); Lymphocytes Percent Auto 14.8 % (18.3-44.2); Mean Corpuscular HGB Conc 29.7 g/dl (32-36); Mean Corpuscular Hemoglobin 31.1 pg (26-34); Mean Platelet Volume 12.6 fl (7.4-10.4); Monocytes Absolute Auto 0.7 K/mm3 (0.1-0.6); Monocytes Percent Auto 8.6 % (2.6-8.5); Neutrophils Absolute Auto 5.6 K/mm3 (1.3-6.7); Neutrophils Percent Auto 74.1 % (45.5-73.1); Platelet Count Result 126 k/mm3 (150-375); Red Blood Count 3.63 M/mm3 (4.2-5.4); White Blood Count 7.5 K/mm3 (4.5-10.0)
[2021-09-03 07:18] LABS: Alanine Aminotransferase 6 U/L (4-35); Alkaline Phosphatase 75 U/L (38-126); Aspartate Amino Transferase 16 U/L (14-36); Bilirubin,Total 0.3 mg/dL (0.2-1.3); Blood Urea Nitrogen 30 mg/dL (7-17); CRP 5.4 mg/dL (<1.0); Calcium 6.6 mg/dL (8.4-10.2); Carbon Dioxide > 40 mmol/L (22-30); Chloride 95 mmol/L (98-107); Estimated CRCL calculation 64 ml/min; Estimated Glomerular Filt Rate > 60; Glucose 98 mg/dL (65-110); Lactate Dehydrogenase 703 U/L (313-618); Magnesium 1.1 mg/dL (1.6-2.3); Potassium 3.3 mmol/L (3.4-5.0); Sodium 143 mmol/L (137-145)
--- NOTE | 2021-09-03 07:33 | PC.NURSE ---
K 3.3 level, reported to Luca Bianchi MD to input K orders.
[2021-09-03] MEDS: MAGNESIUM OXIDE 400 MG TABLET PO (08:38)
[2021-09-03] MEDS: PENTOXIFYLLINE 400 MG TABCR PO ×2 (08:38→16:06)
[2021-09-03] MEDS: FERROUS SULFATE 324 MG TABLET PO ×2 (08:38→16:06)
[2021-09-03] MEDS: METOPROLOL TARTRATE 50 MG TAB PO ×2 (08:38→22:03)
[2021-09-03] MEDS: SACUBITRIL/VALSARTAN 12-13 MG TABLET 1 TAB PO ×2 (08:39→22:04)
[2021-09-03] MEDS: CHOLECALCIFEROL 1,000 UNITS TABLET 1000 UNITS PO (08:39)
[2021-09-03] MEDS: FUROSEMIDE INJ 40 MG/4 ML VIAL IV PUSH (08:39)
[2021-09-03] MEDS: PREGABALIN (*CRX) 50 MG CAPSULE PO (08:39)
[2021-09-03] MEDS: PANTOPRAZOLE 40 MG TABLET PO ×2 (08:39→22:03)
[2021-09-03] MEDS: LIDOCAINE 5% PATCH 1 PATCH TRANSDERM (08:39)
[2021-09-03] MEDS: SERTRALINE HCL 25 MG TABLET PO (08:39)
[2021-09-03] MEDS: DICYCLOMINE HCL 10 MG CAPSULE 20 MG PO ×2 (08:39→16:05)
--- NOTE | 2021-09-03 09:01 | PM.IMPN ---
Progress Note: A&P Assessment and Plan (1) COVID-19: Code(s): U07.1 - COVID-19 Status: Acute Assessment and Plan: Patient tested positive on rapid COVID test confirmed by PCR on August 23, 2021. Patient was appropriately started on remdesivir and dexamethasone. Patient tested positive for COVID-19 on 08/23 and started on remdesivir, dexamethasone on 05/28 - Continue Remdesivir for 10 days -CPAP continue home treatment. - Dexamethasone 6 mg IV for 05/28 days - Continuous pulse oximetry - Prone positioning as tolerated. -no evidence of affect and mood. (2) Septicemia: Code(s): A41.9 - Sepsis, unspecified organism Status: Acute Assessment and Plan: Patient had fever, hypotension worsening oxygenation and KONRAD consistent with sepsis. She may have pneumonia and she is also being worked up for a pyelonephritis 08/17/2022 Patient grew out methicillin sensitive Staph aureus in 2 blood cultures from 08 17 and has been treated with vancomycin and cefepime. Her mental status has improved. Repeat Blood cultures without growth. Cefepime and vancomycin are stopped on 08/26/2021. Patient started on cefazolin 1 G IV q 8hrs (08/26/2021). First negative culture was 11/07 Patient will complete 2 weeks of IV antibiotic after negative culture on 09/04/2021 Patient is interested to go to rehab (3) Altered mental status: Code(s): R41.82 - Altered mental status, unspecified Status: Acute Assessment and Plan: Altered mental status; patient is more alert (4) KONRAD (acute kidney injury): Code(s): N17.9 - Acute kidney failure, unspecified Status: Acute Assessment and Plan: Resolved acute nonoliguric acute kidney injury creatinine stable at 0.8. It is felt to be an acute kidney injury related to ATN. UA noted. (5) Acute and chronic respiratory failure with hypercapnia: Code(s): J96.22 - Acute and chronic respiratory failure with hypercapnia Status: Chronic Assessment and Plan: Secondary to COVID-19 pneumonia keep saturation over 90 (6) COPD exacerbation: Code(s): J44.1 - Chronic obstructive pulmonary disease with (acute) exacerbation Status: Acute Assessment and Plan: Appreciate pulmonary input. Continue home medications. Continue inhaler treatment (7) Hypokalemia: Code(s): E87.6 - Hypokalemia Status: Acute Assessment and Plan: Replaced added Aldactone (8) UTI (urinary tract infection): Code(s): N39.0 - Urinary tract infection, site not specified Status: Acute Assessment and Plan: UA showing 2+ blood, 11-20 red cells and 16-20 white cells. Negative leukocyte esterase and negative nitrates. Urine culture growing Enterococcus species 100 K that is sensitive to ampicillin. Her Khan catheter has been exchanged already. (9) Unresponsive: Code(s): R41.89 - Other symptoms and signs involving cognitive functions and awareness Status: Acute Assessment and Plan: Most likely related to severe sepsis resolved (10) Atrial fibrillation: Qualifiers: Atrial fibrillation type: unspecified Qualified Code(s): I48.91 - Unspecified atrial fibrillation Code(s): I48.91 - Unspecified atrial fibrillation Status: Chronic Assessment and Plan: Patient with chronic atrial fibrillation. Heart rate was well controlled with Coreg. Coreg held due to the hypotension. Resume Coreg as blood pressure tolerates. Resume Xarelto (11) Congestive heart failure (CHF): Qualifiers: Heart failure type: unspecified Heart failure chronicity: chronic Qualified Code(s): I50.9 - Heart failure, unspecified Code(s): I50.9 - Heart failure, unspecified Status: Chronic Assessment and Plan: Acute on top of chronic diastolic CHF exacerbation developed during hospitalization diuresis daily evaluation (12) Macrocytic an
[2021-09-03] MEDS: FLUTICASONE/UMECLIDIN/VILANTER 100-62.5-25 MCG ELLIPTA 1 PUFF INHALATION (09:22)
[2021-09-03] MEDS: POTASSIUM CHLORIDE 20 MEQ TABLET 40 MEQ PO (10:42)
[2021-09-03] MEDS: SPIRONOLACTONE 25 MG TABLET PO (11:16)
--- NOTE | 2021-09-03 12:51 | PCOTNOTE ---
The patient treatment was not able to be completed on 09/03/21 due to patient refused twice. Will plan to continue treatment per plan of care.
[2021-09-03] MEDS: RIVAROXABAN 20 MG TABLET PO (16:06)
[2021-09-03] MEDS: SIMVASTATIN 20 MG TABLET PO (22:04)
[2021-09-04] VITALS (9 sets, daily range): BP systolic 118–135; BP diastolic 71–81; PULSE 72–95; RESP 16–18; TEMP 35.6–36.8; O2SAT 92–97
[2021-09-04] MEDS: LEVOTHYROXINE SODIUM 125 MCG TABLET PO (05:31)
[2021-09-04 06:56] LABS: Hematocrit 35.4 % (37.0-47.0); Hemoglobin 10.4 g/dL (12.0-15.0); Mean Corpuscular HGB Conc 29.4 g/dl (32-36); Mean Corpuscular Hemoglobin 31.1 pg (26-34); Mean Platelet Volume 12.6 fl (7.4-10.4); Platelet Count Result 113 k/mm3 (150-375); Red Blood Count 3.34 M/mm3 (4.2-5.4); White Blood Count 8.7 K/mm3 (4.5-10.0)
[2021-09-04 07:09] LABS: CRP 7.9 mg/dL (<1.0); Lactate Dehydrogenase 610 U/L (313-618)
[2021-09-04 07:10] LABS: Magnesium 1.1 mg/dL (1.6-2.3)
[2021-09-04 08:13] LABS: Band Neutrophils Percent 6 % (0-6); Lymphocytes Absolute Manual 0.69 K/mm3 (1.1-4.5); Monocytes Absolute Manual 0.08 K/mm3 (0.1-0.90); Monocytes Percent Manual 1 % (3-9); Neutrophils Absolute Manual 7.91 K/mm3 (1.7-7.2); Neutrophils Percent Manual 85 % (46-73); Total Cells Counted 100
[2021-09-04 08:14] LABS: Anisocytosis 1+ (NORMAL); Ovalocytes 1+ (NORMAL); Platelet Estimate Decreased (Adequate)
--- NOTE | 2021-09-04 09:41 | PM.IMPN ---
Progress Note: A&P Assessment and Plan (1) COVID-19: Code(s): U07.1 - COVID-19 Status: Acute Assessment and Plan: Patient tested positive on rapid COVID test confirmed by PCR on August 23, 2021. Patient was appropriately started on remdesivir and dexamethasone. Patient tested positive for COVID-19 on 08/23 and started on remdesivir, dexamethasone on 05/28 - Continue Remdesivir for 10 days -CPAP continue home treatment. - Dexamethasone 6 mg IV for 05/28 days - Continuous pulse oximetry - Prone positioning as tolerated. -no evidence of affect and mood. -improved currently on 4 L of oxygen (2) Septicemia: Code(s): A41.9 - Sepsis, unspecified organism Status: Acute Assessment and Plan: Patient had fever, hypotension worsening oxygenation and KONRAD consistent with sepsis. She may have pneumonia and she is also being worked up for a pyelonephritis 08/17/2022 Patient grew out methicillin sensitive Staph aureus in 2 blood cultures from 08 17 and has been treated with vancomycin and cefepime. Her mental status has improved. Repeat Blood cultures without growth. Cefepime and vancomycin are stopped on 08/26/2021. Patient started on cefazolin 1 G IV q 8hrs (08/26/2021). First negative culture was 11/07 Patient will complete 2 weeks of IV antibiotic after negative culture on 09/04/2021 Repeat blood culture today Last day of antibiotic today Patient is interested to go to rehab (3) Altered mental status: Code(s): R41.82 - Altered mental status, unspecified Status: Acute Assessment and Plan: Altered mental status; patient is more alert (4) KONRAD (acute kidney injury): Code(s): N17.9 - Acute kidney failure, unspecified Status: Acute Assessment and Plan: Resolved acute nonoliguric acute kidney injury creatinine stable at 0.8. It is felt to be an acute kidney injury related to ATN. UA noted. (5) Acute and chronic respiratory failure with hypercapnia: Code(s): J96.22 - Acute and chronic respiratory failure with hypercapnia Status: Chronic Assessment and Plan: Secondary to COVID-19 pneumonia keep saturation over 90 (6) COPD exacerbation: Code(s): J44.1 - Chronic obstructive pulmonary disease with (acute) exacerbation Status: Acute Assessment and Plan: Appreciate pulmonary input. Continue home medications. Continue inhaler treatment (7) Hypokalemia: Code(s): E87.6 - Hypokalemia Status: Acute Assessment and Plan: Replaced added Aldactone (8) UTI (urinary tract infection): Code(s): N39.0 - Urinary tract infection, site not specified Status: Acute Assessment and Plan: UA showing 2+ blood, 11-20 red cells and 16-20 white cells. Negative leukocyte esterase and negative nitrates. Urine culture growing Enterococcus species 100 K that is sensitive to ampicillin. Her Khan catheter has been exchanged already. (9) Unresponsive: Code(s): R41.89 - Other symptoms and signs involving cognitive functions and awareness Status: Acute Assessment and Plan: Most likely related to severe sepsis resolved (10) Atrial fibrillation: Qualifiers: Atrial fibrillation type: unspecified Qualified Code(s): I48.91 - Unspecified atrial fibrillation Code(s): I48.91 - Unspecified atrial fibrillation Status: Chronic Assessment and Plan: Patient with chronic atrial fibrillation. Heart rate was well controlled with Coreg. Coreg held due to the hypotension. Resume Coreg as blood pressure tolerates. Resume Xarelto (11) Congestive heart failure (CHF): Qualifiers: Heart failure type: unspecified Heart failure chronicity: chronic Qualified Code(s): I50.9 - Heart failure, unspecified Code(s): I50.9 - Heart failure, unspecified Status: Chronic Assessment and Plan: Acute on top of chronic diastolic CHF
--- NOTE | 2021-09-04 10:07 | PCOTNOTE ---
Addendum entered by Susana Wallace, OT 09/04/21 10:09: Followed up with nurse and care coordination. Original Note: Attempted to re-evaluate pt. Spent 10 minutes trying to motivate pt to participate. Pt. refused to participate d/t neck and left shoulder pain.
[2021-09-04] MEDS: ACETAMINOPHEN 500 MG TABLET PO (10:22)
[2021-09-04] MEDS: PREGABALIN (*CRX) 50 MG CAPSULE PO ×2 (10:23→20:52)
[2021-09-04] MEDS: MAGNESIUM OXIDE 400 MG TABLET PO (10:23)
[2021-09-04] MEDS: SERTRALINE HCL 25 MG TABLET PO (10:24)
[2021-09-04] MEDS: DICYCLOMINE HCL 10 MG CAPSULE 20 MG PO (10:24)
[2021-09-04] MEDS: FERROUS SULFATE 324 MG TABLET PO (10:24)
[2021-09-04] MEDS: SACUBITRIL/VALSARTAN 12-13 MG TABLET 1 TAB PO ×2 (10:24→20:51)
[2021-09-04] MEDS: SPIRONOLACTONE 25 MG TABLET PO (10:24)
[2021-09-04] MEDS: PANTOPRAZOLE 40 MG TABLET PO ×2 (10:24→20:51)
[2021-09-04] MEDS: PENTOXIFYLLINE 400 MG TABCR PO (10:24)
[2021-09-04] MEDS: METOPROLOL TARTRATE 50 MG TAB PO ×2 (10:24→20:51)
[2021-09-04] MEDS: CHOLECALCIFEROL 1,000 UNITS TABLET 1000 UNITS PO (10:24)
[2021-09-04] MEDS: FLUTICASONE/UMECLIDIN/VILANTER 100-62.5-25 MCG ELLIPTA 1 PUFF INHALATION (10:43)
[2021-09-04] MEDS: MENTHOL 10% / METHYL SALICYLATE 15% 57 GM TUBE 1 APPLIC TOPICAL (14:48)
--- NOTE | 2021-09-04 15:15 | PCNFU ---
Nutrition Follow-Up Complete: Inadequate oral intake related to decreased appetite as evidenced by average intake of 10% and pt. refusing several meals. Goal: Patient to meet estimated nutritional needs. Pt is slowly progressing towards goal Pt current nutrition is regular diet and dietary supplement Last recorded weight is 121 kg. Bowel Motility: +BM 09/03 Labs Reviewed: hgb 10.4, hct 35.4, alb 3.0, Cl 95, K 3.3, BUN 30, Mg 1.1, LDH 703, CO2 >40 Meds Noted: cefazolin sodium, bentyl, ferrous sulfate, synthroid, mag-ox, lopressor, protonix, trental, lyrica, entresto, zoloft, aldactone, vitamin D Skin: sacrum maceration, groin maceration Additional Notes: Unable to visit with pt. Attempted to contact nursing x2 but no answer. Per EMR, pt is on a regular diet and dietary supplement of frozen nutritional treat BID providing an additional 300kcal and 9g of protein. Per EMR, reported intake is 0% x3, 100%, and 75%. Recommend increasing frozen nutritional treat to TID if pt is tolerating intake of dietary supplement. Recommend starting pt on megace to stimulate appetite if intake remains under 50%. Agree with diet orders at this time. Will continue to follow. Monitor pt. labs, medications, weight and oral intake every 3 days.
[2021-09-04] MEDS: RIVAROXABAN 20 MG TABLET PO (18:08)
[2021-09-04] MEDS: SIMVASTATIN 20 MG TABLET PO (20:51)
[2021-09-05] VITALS (14 sets, daily range): BP systolic 97–122; BP diastolic 46–66; PULSE 63–92; RESP 16–36; TEMP 36–36.6; O2SAT 60–100
[2021-09-05] MEDS: LEVOTHYROXINE SODIUM 125 MCG TABLET PO (05:30)
[2021-09-05 07:35] LABS: Basophils Percent Auto 0.5 % (0.2-1.2); Eosinophils Percent Auto 0.5 % (0-4.4); Hematocrit 34.7 % (37.0-47.0); Hemoglobin 10.1 g/dL (12.0-15.0); Immature Granulocyte Absolute 0.04 K/mm3 (0.00-0.031); Immature Granulocyte Percent A 0.6 % (0-0.5); Immature Platelet Fraction Pct 10.2 % (0.9-11.2); Lymphocytes Absolute Auto 0.68 K/mm3 (0.9-3.2); Lymphocytes Percent Auto 10.8 % (18.3-44.2); Mean Corpuscular HGB Conc 29.1 g/dl (32-36); Mean Corpuscular Hemoglobin 31.3 pg (26-34); Mean Corpuscular Volume 107.4 fl (80-100); Mean Platelet Volume 13.3 fl (7.4-10.4); Monocytes Absolute Auto 0.6 K/mm3 (0.1-0.6); Monocytes Percent Auto 9.3 % (2.6-8.5); Neutrophils Percent Auto 78.3 % (45.5-73.1); Platelet Count Result 93 k/mm3 (150-375); Red Blood Count 3.23 M/mm3 (4.2-5.4); Red Cell Distribution Width 15.9 % (11.5-14.5); White Blood Count 6.3 K/mm3 (4.5-10.0)
[2021-09-05] MEDS: SPIRONOLACTONE 25 MG TABLET PO (08:26)
[2021-09-05] MEDS: FUROSEMIDE INJ 40 MG/4 ML VIAL IV PUSH (08:26)
[2021-09-05] MEDS: SERTRALINE HCL 25 MG TABLET PO (08:27)
[2021-09-05] MEDS: DICYCLOMINE HCL 10 MG CAPSULE 20 MG PO (08:27)
[2021-09-05] MEDS: CHOLECALCIFEROL 1,000 UNITS TABLET 1000 UNITS PO (08:27)
[2021-09-05] MEDS: PENTOXIFYLLINE 400 MG TABCR PO (08:27)
[2021-09-05] MEDS: MAGNESIUM OXIDE 400 MG TABLET PO (08:27)
[2021-09-05] MEDS: LIDOCAINE 5% PATCH 1 PATCH TRANSDERM (08:27)
[2021-09-05] MEDS: METOPROLOL TARTRATE 50 MG TAB PO ×2 (08:27→21:07)
[2021-09-05] MEDS: SACUBITRIL/VALSARTAN 12-13 MG TABLET 1 TAB PO ×2 (08:27→21:07)
[2021-09-05] MEDS: FERROUS SULFATE 324 MG TABLET PO (08:27)
[2021-09-05] MEDS: PANTOPRAZOLE 40 MG TABLET PO ×2 (08:27→21:07)
[2021-09-05] MEDS: PREGABALIN (*CRX) 50 MG CAPSULE PO ×2 (08:39→21:07)
[2021-09-05 09:08] LABS: CRP 18.6 mg/dL (<1.0); Lactate Dehydrogenase 583 U/L (313-618)
[2021-09-05] MEDS: FLUTICASONE/UMECLIDIN/VILANTER 100-62.5-25 MCG ELLIPTA 1 PUFF INHALATION (09:59)
--- NOTE | 2021-09-05 13:26 | PM.IMPN ---
Progress Note: A&P Assessment and Plan (1) COVID-19: Code(s): U07.1 - COVID-19 Status: Acute Assessment and Plan: Patient tested positive on rapid COVID test confirmed by PCR on August 23, 2021. Patient was appropriately started on remdesivir and dexamethasone. Patient tested positive for COVID-19 on 08/23 and started on remdesivir, dexamethasone on 05/28 - Continue Remdesivir for 10 days -CPAP continue home treatment. - Dexamethasone 6 mg IV for 05/28 days - Continuous pulse oximetry - Prone positioning as tolerated. -no evidence of affect and mood. -improved currently on 4 L of oxygen (2) Septicemia: Code(s): A41.9 - Sepsis, unspecified organism Status: Acute Assessment and Plan: Patient had fever, hypotension worsening oxygenation and KONRAD consistent with sepsis. She may have pneumonia and she is also being worked up for a pyelonephritis 08/17/2022 Patient grew out methicillin sensitive Staph aureus in 2 blood cultures from 08 17 and has been treated with vancomycin and cefepime. Her mental status has improved. Repeat Blood cultures without growth. Cefepime and vancomycin are stopped on 08/26/2021. Patient started on cefazolin 1 G IV q 8hrs (08/26/2021). First negative culture was 11/07 Patient will complete 2 weeks of IV antibiotic after negative culture on 09/04/2021 Repeat blood culture today Last day of antibiotic today Patient is interested to go to rehab 09/05/2021 Interval history: patient with COVID-19 completed course of dexamethasone and remdesivir, patient with a pleural effusion not amendable to thoracentesis, patient with septicemia secondary to MRSA was treated with Cefepime and with vancomycin completed on 08/26/2021, repeat blood culture are negative so far patient remains clinically stable, patient with history of chronic respiratory failure on 3 L of oxygen patient requiring 4 L at rest, patient remains clinically stable will do the home O2 eval and may discharge the patient tomorrow. (3) Altered mental status: Code(s): R41.82 - Altered mental status, unspecified Status: Acute Assessment and Plan: Altered mental status; patient is more alert (4) KONRAD (acute kidney injury): Code(s): N17.9 - Acute kidney failure, unspecified Status: Acute Assessment and Plan: Resolved acute nonoliguric acute kidney injury creatinine stable at 0.8. It is felt to be an acute kidney injury related to ATN. UA noted. (5) Acute and chronic respiratory failure with hypercapnia: Code(s): J96.22 - Acute and chronic respiratory failure with hypercapnia Status: Chronic Assessment and Plan: Secondary to COVID-19 pneumonia keep saturation over 90 (6) COPD exacerbation: Code(s): J44.1 - Chronic obstructive pulmonary disease with (acute) exacerbation Status: Acute Assessment and Plan: Appreciate pulmonary input. Continue home medications. Continue inhaler treatment (7) Hypokalemia: Code(s): E87.6 - Hypokalemia Status: Acute Assessment and Plan: Replaced added Aldactone (8) UTI (urinary tract infection): Code(s): N39.0 - Urinary tract infection, site not specified Status: Acute Assessment and Plan: UA showing 2+ blood, 11-20 red cells and 16-20 white cells. Negative leukocyte esterase and negative nitrates. Urine culture growing Enterococcus species 100 K that is sensitive to ampicillin. Her Khan catheter has been exchanged already. (9) Unresponsive: Code(s): R41.89 - Other symptoms and signs involving cognitive functions and awareness Status: Acute Assessment and Plan: Most likely related to severe sepsis resolved (10) Atrial fibrillation: Qualifiers: Atrial fibrillation type: unspecified Qualified Code(s): I48.91 - Unspecified atrial fibrillation Code(s): I48.91 - Unspecified atrial fibrillation
[2021-09-05 18:22] LABS: Alveolar/Arterial O2 Gradient 298.8 mmHg; Base Excess ABG 14.4 mEq/l (+/-2.0); Fractional Inspired Oxygen 60 %; HCO3 ABG 41.1 mEq/l (22.0-26.0); Oxygen Content ABG 13.5 %vol (16.0-22.0); Oxygen Saturation ABG 90.1 % (95.0-100.0); Oxyhemoglobin 90.6 % THb (90.0-100.0); PO2 ABG 58.6 mmHg (80.0-100.0); PO2 FiO2 Ratio Arterial Blood 0.98 %; Total Hemoglobin 10.6 g/dL (12.0-18.0); pH ABG 7.426 (7.350-7.450)
[2021-09-05 18:24] LABS: Device HIGH FLOW NASAL CANN; Modified Allen's Test Pass; Site Drawn LEFT RADIAL
[2021-09-05] MEDS: SIMVASTATIN 20 MG TABLET PO (21:07)
[2021-09-06] VITALS (12 sets, daily range): BP systolic 103–128; BP diastolic 50–65; PULSE 61–92; RESP 16–22; TEMP 35.7–36.4; O2SAT 92–98
[2021-09-06] MEDS: LEVOTHYROXINE SODIUM 125 MCG TABLET PO (05:59)
[2021-09-06 06:59] LABS: Basophils Percent Auto 0.6 % (0.2-1.2); Eosinophils Absolute Auto 0.1 K/mm3 (0-0.3); Eosinophils Percent Auto 1.8 % (0-4.4); Hematocrit 29.2 % (37.0-47.0); Hemoglobin 8.8 g/dL (12.0-15.0); Immature Granulocyte Absolute 0.01 K/mm3 (0.00-0.031); Immature Granulocyte Percent A 0.2 % (0-0.5); Lymphocytes Absolute Auto 0.95 K/mm3 (0.9-3.2); Lymphocytes Percent Auto 18.5 % (18.3-44.2); Mean Corpuscular HGB Conc 30.1 g/dl (32-36); Mean Corpuscular Hemoglobin 31.3 pg (26-34); Mean Corpuscular Volume 103.9 fl (80-100); Mean Platelet Volume 12.4 fl (7.4-10.4); Monocytes Absolute Auto 0.5 K/mm3 (0.1-0.6); Monocytes Percent Auto 9.4 % (2.6-8.5); Neutrophils Absolute Auto 3.6 K/mm3 (1.3-6.7); Neutrophils Percent Auto 69.5 % (45.5-73.1); Platelet Count Result 88 k/mm3 (150-375); Red Blood Count 2.81 M/mm3 (4.2-5.4); Red Cell Distribution Width 15.7 % (11.5-14.5); White Blood Count 5.1 K/mm3 (4.5-10.0)
[2021-09-06 07:24] LABS: CRP 15.9 mg/dL (<1.0)
[2021-09-06] MEDS: FLUTICASONE/UMECLIDIN/VILANTER 100-62.5-25 MCG ELLIPTA 1 PUFF INHALATION (08:09)
[2021-09-06] MEDS: DICYCLOMINE HCL 10 MG CAPSULE 20 MG PO ×2 (08:13→16:11)
[2021-09-06] MEDS: CHOLECALCIFEROL 1,000 UNITS TABLET 1000 UNITS PO (08:13)
[2021-09-06] MEDS: FUROSEMIDE INJ 40 MG/4 ML VIAL IV PUSH (08:13)
[2021-09-06] MEDS: LIDOCAINE 5% PATCH 1 PATCH TRANSDERM (08:13)
[2021-09-06] MEDS: FERROUS SULFATE 324 MG TABLET PO ×2 (08:13→16:11)
[2021-09-06] MEDS: METOPROLOL TARTRATE 50 MG TAB PO ×2 (08:14→20:56)
[2021-09-06] MEDS: MAGNESIUM OXIDE 400 MG TABLET PO (08:14)
[2021-09-06] MEDS: PANTOPRAZOLE 40 MG TABLET PO ×2 (08:15→20:57)
[2021-09-06] MEDS: SPIRONOLACTONE 25 MG TABLET PO (08:16)
[2021-09-06] MEDS: SACUBITRIL/VALSARTAN 12-13 MG TABLET 1 TAB PO ×2 (08:16→20:56)
[2021-09-06] MEDS: PREGABALIN (*CRX) 50 MG CAPSULE PO ×2 (08:16→20:56)
[2021-09-06] MEDS: PENTOXIFYLLINE 400 MG TABCR PO ×2 (08:16→16:11)
[2021-09-06] MEDS: SERTRALINE HCL 25 MG TABLET PO (08:16)
[2021-09-06] MEDS: MAGNESIUM SULFATE 3GM/D5W100ML 3 GM/100 ML BAG IVPB (09:07)
[2021-09-06 09:12] LABS: Alveolar/Arterial O2 Gradient 94.3 mmHg; Base Excess ABG 16.3 mEq/l (+/-2.0); Fractional Inspired Oxygen 38 %; HCO3 ABG 45.7 mEq/l (22.0-26.0); Oxygen Content ABG 14.7 %vol (16.0-22.0); Oxygen Saturation ABG 93.3 % (95.0-100.0); Oxyhemoglobin 92.9 % THb (90.0-100.0); PO2 ABG 75.5 mmHg (80.0-100.0); PO2 FiO2 Ratio Arterial Blood 1.99 %; Total Hemoglobin 11.2 g/dL (12.0-18.0); pH ABG 7.335 (7.350-7.450)
[2021-09-06 09:17] LABS: PCO2 ABG 87.6 mmHg (35.0-45.0)
[2021-09-06 09:18] LABS: Device NASAL CANNULA; Modified Allen's Test Pass; Site Drawn RIGHT RADIAL
--- NOTE | 2021-09-06 12:16 | PCNFU ---
Nutrition Follow-Up Complete: Inadequate oral intake related to decreased appetite as evidenced by average intake of 10% and pt. refusing several meals. Goal: Patient to meet estimated nutritional needs. Pt is slowly progressing towards goal Pt current nutrition is regular diet and dietary supplement Last recorded weight is 124.6 kg. Bowel Motility: +BM 09/05 Labs Reviewed: hgb 8.8, hct 29.2 Meds Noted: bentyl, ferrous sulfate, lasix, synthroid, mag-ox, lopressor, protonix, trental, lyrica, entresto, zoloft, aldactone, vitamin D Skin: sacrum maceration, bilateral skin fold groin maceration Additional Notes: Unable to visit with pt due to following covid precautions. Per EMR, pt is on a regular diet and dietary supplement of frozen nutritional treat BID providing an additional 300kcal and 9g of protein to increase caloric intake. Reported intake is 0% x4 and 50% with pt refusing meals. Spoke to nursing who reports that they are unsure of pt refusing meals over the past few days but they were able to get her to eat breakfast this am (09/06/21). Nursing reports that pt does not like the frozen nutritional treat and that pt doesn't like pudding either. RDN placed orders to change dietary supplement from frozen nutritional treat BID to ensure clear BID to provide an additional 240kcal and 8g of protein to increase caloric intake. Diet office has been notified. Nursing agrees to continue to encourage intake of regular diet and dietary supplement. Agree with diet orders at this time. Will continue to follow. Monitor pt. labs, medications, weight and oral intake every 3 days.
[2021-09-06 12:21] LABS: Alveolar/Arterial O2 Gradient 150.1 mmHg; Fractional Inspired Oxygen 38 %; HCO3 ABG 42.5 mEq/l (22.0-26.0); Oxygen Content ABG 12.4 %vol (16.0-22.0); PO2 FiO2 Ratio Arterial Blood 1.27 %; Total Hemoglobin 10.7 g/dL (12.0-18.0); pH ABG 7.449 (7.350-7.450)
[2021-09-06 12:22] LABS: PCO2 ABG 62.7 mmHg (35.0-45.0); PO2 ABG 48.4 mmHg (80.0-100.0)
[2021-09-06 12:23] LABS: Device BIPAP; Inspiratory Pressure 22 cmH2O; Modified Allen's Test Pass; Oxygen Saturation ABG 84.4 % (95.0-100.0); Oxyhemoglobin 82.1 % THb (90.0-100.0); Site Drawn RIGHT RADIAL
[2021-09-06 12:24] LABS: Expiratory Pressure 12 cmH2O
[2021-09-06 13:05] LABS: Blood Urea Nitrogen 41 mg/dL (7-17); Carbon Dioxide > 40 mmol/L (22-30); Chloride 91 mmol/L (98-107); Estimated CRCL calculation 35 ml/min; Estimated Glomerular Filt Rate 29; Glucose 103 mg/dL (65-110); Magnesium 1.9 mg/dL (1.6-2.3); Potassium 3.5 mmol/L (3.4-5.0); Sodium 139 mmol/L (137-145)
[2021-09-06 15:29] LABS: Alveolar/Arterial O2 Gradient 377.4 mmHg; Base Excess ABG 12.5 mEq/l (+/-2.0); Fractional Inspired Oxygen 70 %; Oxygen Content ABG 13.2 %vol (16.0-22.0); Oxygen Saturation ABG 89.3 % (95.0-100.0); PO2 ABG 56.6 mmHg (80.0-100.0); PO2 FiO2 Ratio Arterial Blood 0.81 %; Total Hemoglobin 10.8 g/dL (12.0-18.0); pH ABG 7.426 (7.350-7.450)
[2021-09-06 15:30] LABS: PCO2 ABG 60.6 mmHg (35.0-45.0)
[2021-09-06 15:31] LABS: Device BIPAP; Expiratory Pressure 12 cmH2O; Inspiratory Pressure 22 cmH2O; Modified Allen's Test Pass; Oxyhemoglobin 86.8 % THb (90.0-100.0); Site Drawn RIGHT RADIAL
--- NOTE | 2021-09-06 15:50 | PM.IMPN ---
Progress Note: A&P Assessment and Plan (1) COVID-19: Code(s): U07.1 - COVID-19 Status: Acute Assessment and Plan: Patient tested positive on rapid COVID test confirmed by PCR on August 23, 2021. Patient was appropriately started on remdesivir and dexamethasone. Patient tested positive for COVID-19 on 08/23 and started on remdesivir, dexamethasone on 05/28 - Continue Remdesivir for 10 days -CPAP continue home treatment. - Dexamethasone 6 mg IV for 05/28 days - Continuous pulse oximetry - Prone positioning as tolerated. -no evidence of affect and mood. -improved currently on 4 L of oxygen (2) Septicemia: Code(s): A41.9 - Sepsis, unspecified organism Status: Acute Assessment and Plan: Patient had fever, hypotension worsening oxygenation and KONRAD consistent with sepsis. She may have pneumonia and she is also being worked up for a pyelonephritis 08/17/2022 Patient grew out methicillin sensitive Staph aureus in 2 blood cultures from 08 17 and has been treated with vancomycin and cefepime. Her mental status has improved. Repeat Blood cultures without growth. Cefepime and vancomycin are stopped on 08/26/2021. Patient started on cefazolin 1 G IV q 8hrs (08/26/2021). First negative culture was 11/07 Patient will complete 2 weeks of IV antibiotic after negative culture on 09/04/2021 Repeat blood culture today Last day of antibiotic today Patient is interested to go to rehab 09/05/2021 Interval history: patient with COVID-19 completed course of dexamethasone and remdesivir, patient with a pleural effusion not amendable to thoracentesis, patient with septicemia secondary to MRSA was treated with Cefepime and with vancomycin completed on 08/26/2021, repeat blood culture are negative so far patient remains clinically stable, patient with history of chronic respiratory failure on 3 L of oxygen patient requiring 4 L at rest, patient remains clinically stable will do the home O2 eval and may discharge the patient tomorrow. 09/06/2021 Interval history: patient with COVID-19 completed course of dexamethasone and remdesivir, today patient is off isolation, patient remains on BiPAP and her oxygen saturation remains low and patient difficulty with maintaining on BiPAP I spoke with the patient's son, according to him his mother does not want to be on ventilator he has made her DNR, patient with a pleural effusion not amendable to thoracentesis, patient with septicemia secondary to MRSA was treated with Cefepime and with vancomycin completed on 08/26/2021, repeat blood culture are negative so far patient remains clinically stable, patient respiratory symptoms of worsening not patient is DNR, son will come and see her and may decide about the hospice. (3) Altered mental status: Code(s): R41.82 - Altered mental status, unspecified Status: Acute Assessment and Plan: Altered mental status; patient is more alert (4) KONRAD (acute kidney injury): Code(s): N17.9 - Acute kidney failure, unspecified Status: Acute Assessment and Plan: Resolved acute nonoliguric acute kidney injury creatinine stable at 0.8. It is felt to be an acute kidney injury related to ATN. UA noted. (5) Acute and chronic respiratory failure with hypercapnia: Code(s): J96.22 - Acute and chronic respiratory failure with hypercapnia Status: Chronic Assessment and Plan: Secondary to COVID-19 pneumonia keep saturation over 90 (6) COPD exacerbation: Code(s): J44.1 - Chronic obstructive pulmonary disease with (acute) exacerbation Status: Acute Assessment and Plan: Appreciate pulmonary input. Continue home medications. Continue inhaler treatment (7) Hypokalemia: Code(s): E87.6 - Hypokalemia Status: Acute Assessment and Plan: Replaced added Aldactone (8) UTI (urinary tract infection): Code(s): N39.0 - Urinary tract infection, sit
[2021-09-06] MEDS: RIVAROXABAN 20 MG TABLET PO (16:11)
--- NOTE | 2021-09-06 16:24 | PCPTNOTE ---
The patient treatment was not able to be completed today due to patient on BIPAP for decreased O2 saturations. PT will continue to follow per plan of care.
[2021-09-06] MEDS: SIMVASTATIN 20 MG TABLET PO (20:57)
[2021-09-07] VITALS (14 sets, daily range): BP systolic 100–127; BP diastolic 52–82; PULSE 67–106; RESP 16–20; TEMP 36.3–36.4; O2SAT 90–100
[2021-09-07] MEDS: LEVOTHYROXINE SODIUM 125 MCG TABLET PO (05:49)
[2021-09-07 07:56] LABS: Basophils Percent Auto 0.9 % (0.2-1.2); Eosinophils Absolute Auto 0.1 K/mm3 (0-0.3); Eosinophils Percent Auto 1.5 % (0-4.4); Hematocrit 32.1 % (37.0-47.0); Hemoglobin 9.6 g/dL (12.0-15.0); Immature Granulocyte Absolute 0.02 K/mm3 (0.00-0.031); Immature Granulocyte Percent A 0.4 % (0-0.5); Immature Platelet Fraction Pct 8.9 % (0.9-11.2); Lymphocytes Absolute Auto 0.82 K/mm3 (0.9-3.2); Lymphocytes Percent Auto 17.6 % (18.3-44.2); Mean Corpuscular HGB Conc 29.9 g/dl (32-36); Mean Corpuscular Hemoglobin 31.1 pg (26-34); Mean Corpuscular Volume 103.9 fl (80-100); Mean Platelet Volume 12.9 fl (7.4-10.4); Monocytes Absolute Auto 0.4 K/mm3 (0.1-0.6); Monocytes Percent Auto 8.6 % (2.6-8.5); Neutrophils Absolute Auto 3.3 K/mm3 (1.3-6.7); Platelet Count Result 94 k/mm3 (150-375); Red Blood Count 3.09 M/mm3 (4.2-5.4); Red Cell Distribution Width 15.8 % (11.5-14.5); White Blood Count 4.7 K/mm3 (4.5-10.0)
[2021-09-07] MEDS: LIDOCAINE 5% PATCH 1 PATCH TRANSDERM (08:01)
[2021-09-07] MEDS: FUROSEMIDE INJ 40 MG/4 ML VIAL IV PUSH (08:01)
[2021-09-07] MEDS: METOPROLOL TARTRATE 50 MG TAB PO ×2 (08:01→21:01)
[2021-09-07] MEDS: DICYCLOMINE HCL 10 MG CAPSULE 20 MG PO ×2 (08:02→18:29)
[2021-09-07] MEDS: SPIRONOLACTONE 25 MG TABLET PO (08:02)
[2021-09-07] MEDS: PENTOXIFYLLINE 400 MG TABCR PO ×2 (08:02→18:29)
[2021-09-07] MEDS: SERTRALINE HCL 25 MG TABLET PO (08:02)
[2021-09-07] MEDS: SACUBITRIL/VALSARTAN 12-13 MG TABLET 1 TAB PO ×2 (08:02→21:01)
[2021-09-07] MEDS: MAGNESIUM OXIDE 400 MG TABLET PO (08:02)
[2021-09-07] MEDS: CHOLECALCIFEROL 1,000 UNITS TABLET 1000 UNITS PO (08:03)
[2021-09-07] MEDS: FERROUS SULFATE 324 MG TABLET PO ×2 (08:03→18:29)
[2021-09-07] MEDS: PANTOPRAZOLE 40 MG TABLET PO ×2 (08:03→21:01)
[2021-09-07] MEDS: PREGABALIN (*CRX) 50 MG CAPSULE PO ×2 (08:05→21:01)
[2021-09-07 08:08] LABS: Blood Urea Nitrogen 42 mg/dL (7-17); Calcium 7.2 mg/dL (8.4-10.2); Carbon Dioxide > 40 mmol/L (22-30); Chloride 91 mmol/L (98-107); Estimated CRCL calculation 32 ml/min; Estimated Glomerular Filt Rate 26; Glucose 95 mg/dL (65-110); Magnesium 1.7 mg/dL (1.6-2.3); Potassium 3.5 mmol/L (3.4-5.0); Sodium 139 mmol/L (137-145)
[2021-09-07 08:13] LABS: CRP 12.4 mg/dL (<1.0)
[2021-09-07] MEDS: FLUTICASONE/UMECLIDIN/VILANTER 100-62.5-25 MCG ELLIPTA 1 PUFF INHALATION (09:28)
--- NOTE | 2021-09-07 14:16 | PM.IMPN ---
Progress Note: A&P Assessment and Plan (1) COVID-19: Code(s): U07.1 - COVID-19 Status: Acute Assessment and Plan: Patient tested positive on rapid COVID test confirmed by PCR on August 23, 2021. Patient was appropriately started on remdesivir and dexamethasone. Patient tested positive for COVID-19 on 08/23 and started on remdesivir, dexamethasone on 05/28 - Continue Remdesivir for 10 days -CPAP continue home treatment. - Dexamethasone 6 mg IV for 05/28 days - Continuous pulse oximetry - Prone positioning as tolerated. -no evidence of affect and mood. -improved currently on 4 L of oxygen (2) Septicemia: Code(s): A41.9 - Sepsis, unspecified organism Status: Acute Assessment and Plan: Patient had fever, hypotension worsening oxygenation and KONRAD consistent with sepsis. She may have pneumonia and she is also being worked up for a pyelonephritis 08/17/2022 Patient grew out methicillin sensitive Staph aureus in 2 blood cultures from 08 17 and has been treated with vancomycin and cefepime. Her mental status has improved. Repeat Blood cultures without growth. Cefepime and vancomycin are stopped on 08/26/2021. Patient started on cefazolin 1 G IV q 8hrs (08/26/2021). First negative culture was 11/07 Patient will complete 2 weeks of IV antibiotic after negative culture on 09/04/2021 Repeat blood culture today Last day of antibiotic today Patient is interested to go to rehab 09/05/2021 Interval history: patient with COVID-19 completed course of dexamethasone and remdesivir, patient with a pleural effusion not amendable to thoracentesis, patient with septicemia secondary to MRSA was treated with Cefepime and with vancomycin completed on 08/26/2021, repeat blood culture are negative so far patient remains clinically stable, patient with history of chronic respiratory failure on 3 L of oxygen patient requiring 4 L at rest, patient remains clinically stable will do the home O2 eval and may discharge the patient tomorrow. 09/06/2021 Interval history: patient with COVID-19 completed course of dexamethasone and remdesivir, today patient is off isolation, patient remains on BiPAP and her oxygen saturation remains low and patient difficulty with maintaining on BiPAP I spoke with the patient's son, according to him his mother does not want to be on ventilator he has made her DNR, patient with a pleural effusion not amendable to thoracentesis, patient with septicemia secondary to MRSA was treated with Cefepime and with vancomycin completed on 08/26/2021, repeat blood culture are negative so far patient remains clinically stable, patient respiratory symptoms of worsening not patient is DNR, son will come and see her and may decide about the hospice. 09/07/2021 Interval history: patient with COVID-19 completed course of dexamethasone and remdesivir, on 09/06 patient was taken off isolation, patient remains on BiPAP and her oxygen saturation remains low and patient difficulty with maintaining on BiPAP I spoke with the patient's son, according to him his mother does not want to be on ventilator he has made her DNR, patient with a pleural effusion not amendable to thoracentesis, patient with septicemia secondary to MRSA was treated with Cefepime and with vancomycin completed on 08/26/2021, repeat blood culture are negative so far patient remains clinically stable, patient respiratory symptoms of worsening now patient is DNR, [place] son visited patient on 09/06/2021. (3) Altered mental status: Code(s): R41.82 - Altered mental status, unspecified Status: Acute Assessment and Plan: Altered mental status; patient is more alert (4) KONRAD (acute kidney injury): Code(s): N17.9 - Acute kidney failure, unspecified Status: Acute Assessment and Plan: Resolved acute nonoliguric acute kidney injury creatinine stable at 0.8. It is felt to be an acute kidney injury related to ATN. UA noted
[2021-09-07] MEDS: RIVAROXABAN 20 MG TABLET PO (18:29)
[2021-09-07] MEDS: SIMVASTATIN 20 MG TABLET PO (21:01)
[2021-09-08] VITALS (11 sets, daily range): BP systolic 108–113; BP diastolic 43–60; PULSE 67–90; RESP 18–20; TEMP 36.1–36.4; O2SAT 94–98
[2021-09-08] MEDS: LEVOTHYROXINE SODIUM 125 MCG TABLET PO (05:38)
[2021-09-08 07:02] LABS: Blood Urea Nitrogen 51 mg/dL (7-17); Carbon Dioxide > 40 mmol/L (22-30); Chloride 91 mmol/L (98-107); Estimated CRCL calculation 35 ml/min; Estimated Glomerular Filt Rate 29; Glucose 92 mg/dL (65-110); Magnesium 1.6 mg/dL (1.6-2.3); Potassium 3.7 mmol/L (3.4-5.0); Sodium 139 mmol/L (137-145)
[2021-09-08] MEDS: FLUTICASONE/UMECLIDIN/VILANTER 100-62.5-25 MCG ELLIPTA 1 PUFF INHALATION (08:34)
--- NOTE | 2021-09-08 12:09 | PCNFU ---
Nutrition Follow-Up Complete: Inadequate oral intake related to decreased appetite as evidenced by average intake of 10% and pt. refusing several meals. Goal:Patient to meet estimated nutritional needs. Pt is progressing towards goal Pt current nutrition is regular diet and dietary supplement Last recorded weight is 124 kg. Bowel Motility: +BM 09/07 Labs Reviewed: hgb 9.6, hct 32.1, Cl 91, CO 2 >40, Ca 7.0, BUN 51, Cr 1.7, C-reative protein 12.4 Meds Noted: synthroid Skin: sacrum maceration, groin maceration Additional Notes: Unable to visit with pt due to follow covid precautions. Per EMR, pt is on a regular diet and dietary supplement of ensure clear providing an additional 240kcal and 8g to increase caloric intake. Reported intake is 50%, 0%, 100%, and 75% x2. Pt's intake appears to be improving. Attempted to call pt x2 but no answer. Spoke to nursing who reports that pt likes the ensure clear mixed conklin and has been drinking them. Agree with diet order at this time. Will continue to follow. Monitor pt. labs, medications, weight and oral intake every 5 days.
[2021-09-08] MEDS: PENTOXIFYLLINE 400 MG TABCR PO ×2 (12:41→16:51)
[2021-09-08] MEDS: MAGNESIUM OXIDE 400 MG TABLET PO (12:41)
[2021-09-08] MEDS: SACUBITRIL/VALSARTAN 12-13 MG TABLET 1 TAB PO ×2 (12:41→20:43)
[2021-09-08] MEDS: CHOLECALCIFEROL 1,000 UNITS TABLET 1000 UNITS PO (12:41)
[2021-09-08] MEDS: METOPROLOL TARTRATE 50 MG TAB PO ×2 (12:41→20:43)
[2021-09-08] MEDS: FERROUS SULFATE 324 MG TABLET PO ×2 (12:41→16:51)
[2021-09-08] MEDS: PREGABALIN (*CRX) 50 MG CAPSULE PO ×2 (12:41→20:43)
[2021-09-08] MEDS: PANTOPRAZOLE 40 MG TABLET PO ×2 (12:41→20:43)
[2021-09-08] MEDS: SPIRONOLACTONE 25 MG TABLET PO (12:41)
[2021-09-08] MEDS: DICYCLOMINE HCL 10 MG CAPSULE 20 MG PO ×2 (12:41→16:51)
[2021-09-08] MEDS: LIDOCAINE 5% PATCH 1 PATCH TRANSDERM (12:42)
[2021-09-08] MEDS: FUROSEMIDE INJ 40 MG/4 ML VIAL IV PUSH (12:42)
[2021-09-08] MEDS: SERTRALINE HCL 25 MG TABLET PO (12:42)
--- NOTE | 2021-09-08 15:36 | PM.IMPN ---
Progress Note: A&P Assessment and Plan (1) COVID-19: Code(s): U07.1 - COVID-19 Status: Acute Assessment and Plan: Patient tested positive on rapid COVID test confirmed by PCR on August 23, 2021. Patient was appropriately started on remdesivir and dexamethasone. Patient tested positive for COVID-19 on 08/23 and started on remdesivir, dexamethasone on 05/28 - Continue Remdesivir for 10 days -CPAP continue home treatment. - Dexamethasone 6 mg IV for 05/28 days - Continuous pulse oximetry - Prone positioning as tolerated. -no evidence of affect and mood. -improved currently on 4 L of oxygen (2) Septicemia: Code(s): A41.9 - Sepsis, unspecified organism Status: Acute Assessment and Plan: Patient had fever, hypotension worsening oxygenation and KONRAD consistent with sepsis. She may have pneumonia and she is also being worked up for a pyelonephritis 08/17/2022 Patient grew out methicillin sensitive Staph aureus in 2 blood cultures from 08 17 and has been treated with vancomycin and cefepime. Her mental status has improved. Repeat Blood cultures without growth. Cefepime and vancomycin are stopped on 08/26/2021. Patient started on cefazolin 1 G IV q 8hrs (08/26/2021). First negative culture was 11/07 Patient will complete 2 weeks of IV antibiotic after negative culture on 09/04/2021 Repeat blood culture today Last day of antibiotic today Patient is interested to go to rehab 09/05/2021 Interval history: patient with COVID-19 completed course of dexamethasone and remdesivir, patient with a pleural effusion not amendable to thoracentesis, patient with septicemia secondary to MRSA was treated with Cefepime and with vancomycin completed on 08/26/2021, repeat blood culture are negative so far patient remains clinically stable, patient with history of chronic respiratory failure on 3 L of oxygen patient requiring 4 L at rest, patient remains clinically stable will do the home O2 eval and may discharge the patient tomorrow. 09/06/2021 Interval history: patient with COVID-19 completed course of dexamethasone and remdesivir, today patient is off isolation, patient remains on BiPAP and her oxygen saturation remains low and patient difficulty with maintaining on BiPAP I spoke with the patient's son, according to him his mother does not want to be on ventilator he has made her DNR, patient with a pleural effusion not amendable to thoracentesis, patient with septicemia secondary to MRSA was treated with Cefepime and with vancomycin completed on 08/26/2021, repeat blood culture are negative so far patient remains clinically stable, patient respiratory symptoms of worsening not patient is DNR, son will come and see her and may decide about the hospice. 09/07/2021 Interval history: patient with COVID-19 completed course of dexamethasone and remdesivir, on 09/06 patient was taken off isolation, patient remains on BiPAP and her oxygen saturation remains low and patient difficulty with maintaining on BiPAP I spoke with the patient's son, according to him his mother does not want to be on ventilator he has made her DNR, patient with a pleural effusion not amendable to thoracentesis, patient with septicemia secondary to MRSA was treated with Cefepime and with vancomycin completed on 08/26/2021, repeat blood culture are negative so far patient remains clinically stable, patient respiratory symptoms of worsening now patient is DNR, Ivy son visited patient on 09/06/2021. 09/08/2021 Interval history: patient remains on BiPAP unable to wean the patient off however discussed with nursing during today's if can maintain patient on nasal cannula and keep her saturation close to 90 there will be better and can possibly discharge the patient to long-term, remains clinically stable will continue to monitor (3) Altered mental status: Code(s): R41.82 - Altered mental status, unspecified Status: Acute Assessment an
[2021-09-08] MEDS: ACETAMINOPHEN 500 MG TABLET PO (16:50)
[2021-09-08] MEDS: RIVAROXABAN 20 MG TABLET PO (16:51)
[2021-09-08] MEDS: SIMVASTATIN 20 MG TABLET PO (20:43)
[2021-09-09] VITALS (10 sets, daily range): BP systolic 105–118; BP diastolic 47–57; PULSE 68–92; RESP 14–22; TEMP 35.9–36.2; O2SAT 90–95
[2021-09-09] MEDS: LEVOTHYROXINE SODIUM 125 MCG TABLET PO (05:35)
[2021-09-09 08:20] LABS: Blood Urea Nitrogen 48 mg/dL (7-17); Calcium 7.6 mg/dL (8.4-10.2); Carbon Dioxide > 40 mmol/L (22-30); Chloride 92 mmol/L (98-107); Estimated CRCL calculation 30 ml/min; Estimated Glomerular Filt Rate 24; Glucose 93 mg/dL (65-110); Magnesium 1.6 mg/dL (1.6-2.3); Potassium 3.4 mmol/L (3.4-5.0); Sodium 141 mmol/L (137-145)
[2021-09-09] MEDS: PENTOXIFYLLINE 400 MG TABCR PO ×2 (09:20→17:30)
[2021-09-09] MEDS: LIDOCAINE 5% PATCH 1 PATCH TRANSDERM (09:20)
[2021-09-09] MEDS: SPIRONOLACTONE 25 MG TABLET PO (09:20)
[2021-09-09] MEDS: DICYCLOMINE HCL 10 MG CAPSULE 20 MG PO ×2 (09:20→17:29)
[2021-09-09] MEDS: MAGNESIUM OXIDE 400 MG TABLET PO (09:20)
[2021-09-09] MEDS: METOPROLOL TARTRATE 50 MG TAB PO ×2 (09:21→20:44)
[2021-09-09] MEDS: CHOLECALCIFEROL 1,000 UNITS TABLET 1000 UNITS PO (09:21)
[2021-09-09] MEDS: FUROSEMIDE INJ 40 MG/4 ML VIAL IV PUSH (09:21)
[2021-09-09] MEDS: SACUBITRIL/VALSARTAN 12-13 MG TABLET 1 TAB PO ×2 (09:21→20:44)
[2021-09-09] MEDS: SERTRALINE HCL 25 MG TABLET PO (09:21)
[2021-09-09] MEDS: FERROUS SULFATE 324 MG TABLET PO ×2 (09:21→17:29)
[2021-09-09] MEDS: ACETAMINOPHEN 500 MG TABLET PO (09:24)
[2021-09-09] MEDS: PREGABALIN (*CRX) 50 MG CAPSULE PO ×2 (09:24→20:44)
--- NOTE | 2021-09-09 10:53 | P.PNIM_ITS ---
Progress Note: A&P Assessment and Plan (1) COVID-19: Code(s): U07.1 - COVID-19 Status: Acute Assessment and Plan: Patient tested positive on rapid COVID test confirmed by PCR on August 23, 2021. Patient was appropriately started on remdesivir and dexamethasone. Patient tested positive for COVID-19 on 08/23 and started on remdesivir, dexamethasone on 05/28 - Continue Remdesivir for 10 days -CPAP continue home treatment. - Dexamethasone 6 mg IV for 05/28 days - Continuous pulse oximetry - Prone positioning as tolerated. -no evidence of affect and mood. -improved currently on 4 L of oxygen (2) Septicemia: Code(s): A41.9 - Sepsis, unspecified organism Status: Acute Assessment and Plan: Patient had fever, hypotension worsening oxygenation and KONRAD consistent with sepsis. She may have pneumonia and she is also being worked up for a pyelonephritis 08/17/2022 Patient grew out methicillin sensitive Staph aureus in 2 blood cultures from 08 17 and has been treated with vancomycin and cefepime. Her mental status has improved. Repeat Blood cultures without growth. Cefepime and vancomycin are stopped on 08/26/2021. Patient started on cefazolin 1 G IV q 8hrs (08/26/2021). First negative culture was 11/07 Patient will complete 2 weeks of IV antibiotic after negative culture on 09/04/2021 Repeat blood culture today Last day of antibiotic today Patient is interested to go to rehab 09/05/2021 Interval history: patient with COVID-19 completed course of dexamethasone and remdesivir, patient with a pleural effusion not amendable to thoracentesis, patient with septicemia secondary to MRSA was treated with Cefepime and with vancomycin completed on 08/26/2021, repeat blood culture are negative so far patient remains clinically stable, patient with history of chronic respiratory failure on 3 L of oxygen patient requiring 4 L at rest, patient remains clinically stable will do the home O2 eval and may discharge the patient tomorrow. 09/06/2021 Interval history: patient with COVID-19 completed course of dexamethasone and remdesivir, today patient is off isolation, patient remains on BiPAP and her oxygen saturation remains low and patient difficulty with maintaining on BiPAP I spoke with the patient's son, according to him his mother does not want to be on ventilator he has made her DNR, patient with a pleural effusion not amendable to thoracentesis, patient with septicemia secondary to MRSA was treated with Cefepime and with vancomycin completed on 08/26/2021, repeat blood culture are negative so far patient remains clinically stable, patient respiratory symptoms of worsening not patient is DNR, son will come and see her and may decide about the hospice. 09/07/2021 Interval history: patient with COVID-19 completed course of dexamethasone and remdesivir, on 09/06 patient was taken off isolation, patient remains on BiPAP and her oxygen saturation remains low and patient difficulty with maintaining on BiPAP I spoke with the patient's son, according to him his mother does not want to be on ventilator he has made her DNR, patient with a pleural effusion not amendable to thoracentesis, patient with septicemia secondary to MRSA was treated with Cefepime and with vancomycin completed on 08/26/2021, repeat blood culture are negative so far patient remains clinically stable, patient respiratory symptoms of worsening now patient is DNR, Ivy son visited patient on 09/06/2021. 09/08/2021 Interval history: patient remains on BiPAP unable to wean the patient off however discussed with nursing during today's if can maintain patient on nasal cannula and keep her satura
[2021-09-09] MEDS: FLUTICASONE/UMECLIDIN/VILANTER 100-62.5-25 MCG ELLIPTA 1 PUFF INHALATION (11:34)
[2021-09-09] MEDS: PANTOPRAZOLE 40 MG TABLET PO ×2 (12:28→20:44)
[2021-09-09] MEDS: RIVAROXABAN 20 MG TABLET PO (17:29)
[2021-09-09] MEDS: SIMVASTATIN 20 MG TABLET PO (20:44)
[2021-09-10] VITALS (8 sets, daily range): BP systolic 110–119; BP diastolic 58–65; PULSE 82–96; RESP 16–23; TEMP 36.1–37; O2SAT 90–100
[2021-09-10] MEDS: LEVOTHYROXINE SODIUM 125 MCG TABLET PO (06:22)
[2021-09-10] MEDS: PANTOPRAZOLE 40 MG TABLET PO ×2 (08:11→20:28)
[2021-09-10] MEDS: FERROUS SULFATE 324 MG TABLET PO ×2 (08:11→16:29)
[2021-09-10] MEDS: PENTOXIFYLLINE 400 MG TABCR PO ×2 (08:11→16:29)
[2021-09-10] MEDS: FUROSEMIDE 40 MG TABLET PO (08:11)
[2021-09-10] MEDS: SPIRONOLACTONE 25 MG TABLET PO (08:11)
[2021-09-10] MEDS: DICYCLOMINE HCL 10 MG CAPSULE 20 MG PO ×2 (08:11→16:29)
[2021-09-10] MEDS: MAGNESIUM OXIDE 400 MG TABLET PO (08:11)
[2021-09-10] MEDS: SACUBITRIL/VALSARTAN 12-13 MG TABLET 1 TAB PO ×2 (08:11→20:28)
[2021-09-10] MEDS: SERTRALINE HCL 25 MG TABLET PO (08:12)
[2021-09-10] MEDS: CHOLECALCIFEROL 1,000 UNITS TABLET 1000 UNITS PO (08:12)
[2021-09-10] MEDS: PREGABALIN (*CRX) 50 MG CAPSULE PO ×2 (08:12→20:28)
[2021-09-10] MEDS: METOPROLOL TARTRATE 50 MG TAB PO ×2 (08:12→20:28)
[2021-09-10 08:49] LABS: Blood Urea Nitrogen 47 mg/dL (7-17); Calcium 7.8 mg/dL (8.4-10.2); Carbon Dioxide > 40 mmol/L (22-30); Chloride 92 mmol/L (98-107); Estimated CRCL calculation 32 ml/min; Estimated Glomerular Filt Rate 26; Glucose 99 mg/dL (65-110); Magnesium 1.6 mg/dL (1.6-2.3); Potassium 3.6 mmol/L (3.4-5.0); Sodium 140 mmol/L (137-145)
[2021-09-10] MEDS: FLUTICASONE/UMECLIDIN/VILANTER 100-62.5-25 MCG ELLIPTA 1 PUFF INHALATION (09:46)
--- NOTE | 2021-09-10 12:03 | PM.IMPN ---
Progress Note: A&P Assessment and Plan (1) COVID-19: Code(s): U07.1 - COVID-19 Status: Acute Assessment and Plan: Patient tested positive on rapid COVID test confirmed by PCR on August 23, 2021. Patient was appropriately started on remdesivir and dexamethasone. Patient tested positive for COVID-19 on 08/23 and started on remdesivir, dexamethasone on 05/28 - Continue Remdesivir for 10 days -CPAP continue home treatment. - Dexamethasone 6 mg IV for 05/28 days - Continuous pulse oximetry - Prone positioning as tolerated. -no evidence of affect and mood. -improved currently on 4 L of oxygen (2) Septicemia: Code(s): A41.9 - Sepsis, unspecified organism Status: Acute Assessment and Plan: Patient had fever, hypotension worsening oxygenation and KONRAD consistent with sepsis. She may have pneumonia and she is also being worked up for a pyelonephritis 08/17/2022 Patient grew out methicillin sensitive Staph aureus in 2 blood cultures from 08 17 and has been treated with vancomycin and cefepime. Her mental status has improved. Repeat Blood cultures without growth. Cefepime and vancomycin are stopped on 08/26/2021. Patient started on cefazolin 1 G IV q 8hrs (08/26/2021). First negative culture was 11/07 Patient will complete 2 weeks of IV antibiotic after negative culture on 09/04/2021 Repeat blood culture today Last day of antibiotic today Patient is interested to go to rehab 09/05/2021 Interval history: patient with COVID-19 completed course of dexamethasone and remdesivir, patient with a pleural effusion not amendable to thoracentesis, patient with septicemia secondary to MRSA was treated with Cefepime and with vancomycin completed on 08/26/2021, repeat blood culture are negative so far patient remains clinically stable, patient with history of chronic respiratory failure on 3 L of oxygen patient requiring 4 L at rest, patient remains clinically stable will do the home O2 eval and may discharge the patient tomorrow. 09/06/2021 Interval history: patient with COVID-19 completed course of dexamethasone and remdesivir, today patient is off isolation, patient remains on BiPAP and her oxygen saturation remains low and patient difficulty with maintaining on BiPAP I spoke with the patient's son, according to him his mother does not want to be on ventilator he has made her DNR, patient with a pleural effusion not amendable to thoracentesis, patient with septicemia secondary to MRSA was treated with Cefepime and with vancomycin completed on 08/26/2021, repeat blood culture are negative so far patient remains clinically stable, patient respiratory symptoms of worsening not patient is DNR, son will come and see her and may decide about the hospice. 09/07/2021 Interval history: patient with COVID-19 completed course of dexamethasone and remdesivir, on 09/06 patient was taken off isolation, patient remains on BiPAP and her oxygen saturation remains low and patient difficulty with maintaining on BiPAP I spoke with the patient's son, according to him his mother does not want to be on ventilator he has made her DNR, patient with a pleural effusion not amendable to thoracentesis, patient with septicemia secondary to MRSA was treated with Cefepime and with vancomycin completed on 08/26/2021, repeat blood culture are negative so far patient remains clinically stable, patient respiratory symptoms of worsening now patient is DNR, Ivy son visited patient on 09/06/2021. 09/08/2021 Interval history: patient remains on BiPAP unable to wean the patient off however discussed with nursing during today's if can maintain patient on nasal cannula and keep her saturation close to 90 there will be better and can possibly discharge the patient to group home, remains clinically stable will continue to monitor. 09/09/2021 Interval history: currently patient is on nasal cannula, remains clinically stable has no new complaints will contin
[2021-09-10] MEDS: RIVAROXABAN 20 MG TABLET PO (16:29)
[2021-09-11] VITALS (8 sets, daily range): BP systolic 121–124; BP diastolic 57–77; PULSE 70–105; RESP 16–19; TEMP 36–36.3; O2SAT 92–97
[2021-09-11] MEDS: WATER FOR IRRIGATION, STERILE 1,000 ML BOTTLE 1000 ML (05:45)
[2021-09-11] MEDS: LEVOTHYROXINE SODIUM 125 MCG TABLET PO (05:45)
[2021-09-11] MEDS: FLUTICASONE/UMECLIDIN/VILANTER 100-62.5-25 MCG ELLIPTA 1 PUFF INHALATION (08:42)
[2021-09-11 08:43] LABS: Blood Urea Nitrogen 49 mg/dL (7-17); Calcium 8.1 mg/dL (8.4-10.2); Carbon Dioxide > 40 mmol/L (22-30); Chloride 93 mmol/L (98-107); Estimated CRCL calculation 32 ml/min; Estimated Glomerular Filt Rate 26; Glucose 99 mg/dL (65-110); Magnesium 1.5 mg/dL (1.6-2.3); Potassium 3.5 mmol/L (3.4-5.0); Sodium 141 mmol/L (137-145)
[2021-09-11] MEDS: DICYCLOMINE HCL 10 MG CAPSULE 20 MG PO ×2 (09:21→17:15)
[2021-09-11] MEDS: FERROUS SULFATE 324 MG TABLET PO ×2 (09:21→17:15)
[2021-09-11] MEDS: SERTRALINE HCL 25 MG TABLET PO (09:21)
[2021-09-11] MEDS: CHOLECALCIFEROL 1,000 UNITS TABLET 1000 UNITS PO (09:21)
[2021-09-11] MEDS: LIDOCAINE 5% PATCH 1 PATCH TRANSDERM (09:21)
[2021-09-11] MEDS: PANTOPRAZOLE 40 MG TABLET PO ×2 (09:22→20:24)
[2021-09-11] MEDS: SPIRONOLACTONE 25 MG TABLET PO (09:22)
[2021-09-11] MEDS: METOPROLOL TARTRATE 50 MG TAB PO ×2 (09:22→20:24)
[2021-09-11] MEDS: PENTOXIFYLLINE 400 MG TABCR PO ×2 (09:23→17:15)
[2021-09-11] MEDS: FUROSEMIDE 40 MG TABLET PO (09:23)
[2021-09-11] MEDS: MAGNESIUM OXIDE 400 MG TABLET PO (09:23)
[2021-09-11] MEDS: SACUBITRIL/VALSARTAN 12-13 MG TABLET 1 TAB PO ×2 (09:23→20:24)
[2021-09-11] MEDS: PREGABALIN (*CRX) 50 MG CAPSULE PO ×2 (09:27→20:25)
[2021-09-11] MEDS: RIVAROXABAN 20 MG TABLET PO (17:15)
[2021-09-11] MEDS: TOLNAFTATE 1% POWDER 45 GM BTL 1 APPLIC TOPICAL (20:25)
[2021-09-12] VITALS (13 sets, daily range): BP systolic 99–125; BP diastolic 54–66; PULSE 74–100; RESP 18–24; TEMP 35.8–36.8; O2SAT 90–96
[2021-09-12 08:07] LABS: Blood Urea Nitrogen 49 mg/dL (7-17); Calcium 8.2 mg/dL (8.4-10.2); Carbon Dioxide > 40 mmol/L (22-30); Chloride 92 mmol/L (98-107); Estimated CRCL calculation 27 ml/min; Estimated Glomerular Filt Rate 22; Glucose 91 mg/dL (65-110); Magnesium 1.6 mg/dL (1.6-2.3); Potassium 3.6 mmol/L (3.4-5.0); Sodium 141 mmol/L (137-145)
[2021-09-12] MEDS: METOPROLOL TARTRATE 50 MG TAB PO ×2 (08:55→20:19)
[2021-09-12] MEDS: SACUBITRIL/VALSARTAN 12-13 MG TABLET 1 TAB PO (08:55)
[2021-09-12] MEDS: CHOLECALCIFEROL 1,000 UNITS TABLET 1000 UNITS PO (08:55)
[2021-09-12] MEDS: PREGABALIN (*CRX) 50 MG CAPSULE PO ×2 (08:55→20:17)
[2021-09-12] MEDS: FERROUS SULFATE 324 MG TABLET PO ×2 (08:55→18:13)
[2021-09-12] MEDS: MAGNESIUM OXIDE 400 MG TABLET PO (08:58)
[2021-09-12] MEDS: SERTRALINE HCL 25 MG TABLET PO (08:58)
[2021-09-12] MEDS: FUROSEMIDE 40 MG TABLET PO (08:58)
[2021-09-12] MEDS: SPIRONOLACTONE 25 MG TABLET PO (08:58)
[2021-09-12] MEDS: DICYCLOMINE HCL 10 MG CAPSULE 20 MG PO ×2 (08:58→18:12)
[2021-09-12] MEDS: PANTOPRAZOLE 40 MG TABLET PO ×2 (08:58→20:19)
[2021-09-12] MEDS: PENTOXIFYLLINE 400 MG TABCR PO ×2 (08:59→18:13)
[2021-09-12] MEDS: FLUTICASONE/UMECLIDIN/VILANTER 100-62.5-25 MCG ELLIPTA 1 PUFF INHALATION (09:25)
--- NOTE | 2021-09-12 11:00 | PM.IMPN ---
Progress Note: A&P Assessment and Plan (1) COVID-19: Code(s): U07.1 - COVID-19 Status: Acute Assessment and Plan: Patient tested positive on rapid COVID test confirmed by PCR on August 23, 2021. Patient was appropriately started on remdesivir and dexamethasone. Patient tested positive for COVID-19 on 08/23 and started on remdesivir, dexamethasone on 05/28 - Continue Remdesivir for 10 days -CPAP continue home treatment. - Dexamethasone 6 mg IV for 05/28 days - Continuous pulse oximetry - Prone positioning as tolerated. -no evidence of affect and mood. -wean off oxygen (2) Septicemia: Code(s): A41.9 - Sepsis, unspecified organism Status: Acute Assessment and Plan: Patient had fever, hypotension worsening oxygenation and KONRAD consistent with sepsis. She may have pneumonia and she is also being worked up for a pyelonephritis 08/17/2022 Patient grew out methicillin sensitive Staph aureus in 2 blood cultures from 08 17 and has been treated with vancomycin and cefepime. Her mental status has improved. Repeat Blood cultures without growth. Cefepime and vancomycin are stopped on 08/26/2021. Patient started on cefazolin 1 G IV q 8hrs (08/26/2021). First negative culture was 11/07 Completed 2 weeks course of IV antibiotics Repeat blood culture today Patient is interested to go to rehab pending improvement in oxygenation (3) Altered mental status: Code(s): R41.82 - Altered mental status, unspecified Status: Acute Assessment and Plan: Altered mental status; patient is more alert (4) KONRAD (acute kidney injury): Code(s): N17.9 - Acute kidney failure, unspecified Status: Acute Assessment and Plan: Resolved acute nonoliguric acute kidney injury creatinine stable at 0.8. It is felt to be an acute kidney injury related to ATN. UA noted. Worsening today DC [facility] Nephrology evaluation will consider DC [place] (5) Acute and chronic respiratory failure with hypercapnia: Code(s): J96.22 - Acute and chronic respiratory failure with hypercapnia Status: Chronic Assessment and Plan: Secondary to COVID-19 pneumonia keep saturation over 90 (6) COPD exacerbation: Code(s): J44.1 - Chronic obstructive pulmonary disease with (acute) exacerbation Status: Acute Assessment and Plan: Appreciate pulmonary input. Continue home medications. Continue inhaler treatment (7) Hypokalemia: Code(s): E87.6 - Hypokalemia Status: Acute Assessment and Plan: Replaced added Aldactone (8) UTI (urinary tract infection): Code(s): N39.0 - Urinary tract infection, site not specified Status: Acute Assessment and Plan: UA showing 2+ blood, 11-20 red cells and 16-20 white cells. Negative leukocyte esterase and negative nitrates. Urine culture growing Enterococcus species 100 K that is sensitive to ampicillin. Her Khan catheter has been exchanged already. (9) Unresponsive: Code(s): R41.89 - Other symptoms and signs involving cognitive functions and awareness Status: Acute Assessment and Plan: Most likely related to severe sepsis resolved (10) Atrial fibrillation: Qualifiers: Atrial fibrillation type: unspecified Qualified Code(s): I48.91 - Unspecified atrial fibrillation Code(s): I48.91 - Unspecified atrial fibrillation Status: Chronic Assessment and Plan: Patient with chronic atrial fibrillation. Heart rate was well controlled with Coreg. Coreg held due to the hypotension. Resume Coreg as blood pressure tolerates. Resume Xarelto (11) Congestive heart failure (CHF): Qualifiers: Heart failure type: unspecified Heart failure chronicity: chronic Qualified Code(s): I50.9 - Heart failure, unspecified Code(s): I50.9 - Heart failure, unspecified Status: Chronic Assessment and Plan: Acute on top of
[2021-09-12 11:18] LABS: Basophils Percent Auto 0.8 % (0.2-1.2); Eosinophils Absolute Auto 0.1 K/mm3 (0-0.3); Hematocrit 28.3 % (37.0-47.0); Hemoglobin 8.2 g/dL (12.0-15.0); Immature Granulocyte Absolute 0.02 K/mm3 (0.00-0.031); Immature Granulocyte Percent A 0.6 % (0-0.5); Lymphocytes Absolute Auto 0.78 K/mm3 (0.9-3.2); Lymphocytes Percent Auto 22.1 % (18.3-44.2); Mean Corpuscular Hemoglobin 31.4 pg (26-34); Mean Corpuscular Volume 108.4 fl (80-100); Monocytes Absolute Auto 0.4 K/mm3 (0.1-0.6); Monocytes Percent Auto 11.6 % (2.6-8.5); Neutrophils Absolute Auto 2.2 K/mm3 (1.3-6.7); Neutrophils Percent Auto 62.9 % (45.5-73.1); Platelet Count Result 125 k/mm3 (150-375); Red Blood Count 2.61 M/mm3 (4.2-5.4); Red Cell Distribution Width 15.2 % (11.5-14.5); White Blood Count 3.5 K/mm3 (4.5-10.0)
[2021-09-12 11:54] LABS: Anisocytosis 1+ (NORMAL); Hypochromasia 1+ (NORMAL); Ovalocytes 1+ (NORMAL); Platelet Estimate Adequate (Adequate)
[2021-09-12 11:54] LABS: Creatine Kinase 23 U/L (30-135)
[2021-09-12 12:02] LABS: Uric Acid 9.4 mg/dL (2.5-7.5)
[2021-09-12 12:30] LABS: Procalcitonin 0.2 ng/mL
[2021-09-12] MEDS: TOLNAFTATE 1% POWDER 45 GM BTL 1 APPLIC TOPICAL ×2 (13:01→20:22)
[2021-09-12] MEDS: RIVAROXABAN 20 MG TABLET PO (18:13)
[2021-09-13] VITALS (11 sets, daily range): BP systolic 117–128; BP diastolic 45–71; PULSE 66–92; RESP 16–22; TEMP 36.1–36.6; O2SAT 90–100
[2021-09-13] MEDS: LEVOTHYROXINE SODIUM 125 MCG TABLET PO (06:01)
[2021-09-13 08:05] LABS: Basophils Percent Auto 0.6 % (0.2-1.2); Eosinophils Absolute Auto 0.1 K/mm3 (0-0.3); Eosinophils Percent Auto 2.6 % (0-4.4); Hematocrit 26.7 % (37.0-47.0); Hemoglobin 8.1 g/dL (12.0-15.0); Immature Granulocyte Absolute 0.02 K/mm3 (0.00-0.031); Immature Granulocyte Percent A 0.6 % (0-0.5); Lymphocytes Absolute Auto 0.67 K/mm3 (0.9-3.2); Lymphocytes Percent Auto 21.7 % (18.3-44.2); Mean Corpuscular HGB Conc 30.3 g/dl (32-36); Mean Corpuscular Hemoglobin 31.5 pg (26-34); Mean Corpuscular Volume 103.9 fl (80-100); Mean Platelet Volume 11.3 fl (7.4-10.4); Monocytes Absolute Auto 0.4 K/mm3 (0.1-0.6); Monocytes Percent Auto 11.3 % (2.6-8.5); Neutrophils Percent Auto 63.2 % (45.5-73.1); Platelet Count Result 128 k/mm3 (150-375); Red Blood Count 2.57 M/mm3 (4.2-5.4); Red Cell Distribution Width 15.4 % (11.5-14.5); White Blood Count 3.1 K/mm3 (4.5-10.0)
[2021-09-13] MEDS: FLUTICASONE/UMECLIDIN/VILANTER 100-62.5-25 MCG ELLIPTA 1 PUFF INHALATION (08:30)
[2021-09-13 08:46] LABS: Blood Urea Nitrogen 51 mg/dL (7-17); Calcium 8.1 mg/dL (8.4-10.2); Carbon Dioxide > 40 mmol/L (22-30); Chloride 92 mmol/L (98-107); Estimated CRCL calculation 26 ml/min; Estimated Glomerular Filt Rate 21; Glucose 93 mg/dL (65-110); Magnesium 1.6 mg/dL (1.6-2.3); Potassium 3.6 mmol/L (3.4-5.0); Sodium 141 mmol/L (137-145)
--- NOTE | 2021-09-13 09:01 | PCOTNOTE ---
Attempted to see patient this date at 08:55am, patient currently asleep and unable to arouse.
[2021-09-13] MEDS: METOPROLOL TARTRATE 50 MG TAB PO ×2 (09:17→23:01)
[2021-09-13] MEDS: LIDOCAINE 5% PATCH 1 PATCH TRANSDERM (09:17)
[2021-09-13] MEDS: MAGNESIUM OXIDE 400 MG TABLET PO (09:17)
[2021-09-13] MEDS: DICYCLOMINE HCL 10 MG CAPSULE 20 MG PO ×2 (09:17→18:06)
[2021-09-13] MEDS: PENTOXIFYLLINE 400 MG TABCR PO ×2 (09:18→18:06)
[2021-09-13] MEDS: CHOLECALCIFEROL 1,000 UNITS TABLET 1000 UNITS PO (09:18)
[2021-09-13] MEDS: SPIRONOLACTONE 25 MG TABLET PO (09:18)
[2021-09-13] MEDS: SERTRALINE HCL 25 MG TABLET PO (09:18)
[2021-09-13] MEDS: PANTOPRAZOLE 40 MG TABLET PO ×2 (09:18→23:01)
[2021-09-13] MEDS: FERROUS SULFATE 324 MG TABLET PO ×2 (09:18→18:06)
[2021-09-13] MEDS: ACETAMINOPHEN 500 MG TABLET PO (09:24)
[2021-09-13] MEDS: PREGABALIN (*CRX) 50 MG CAPSULE PO ×2 (09:24→23:01)
[2021-09-13] MEDS: TOLNAFTATE 1% POWDER 45 GM BTL 1 APPLIC TOPICAL ×2 (09:25→23:01)
[2021-09-13 09:31] LABS: Anisocytosis 1+ (NORMAL); Hypochromasia 1+ (NORMAL); Ovalocytes 1+ (NORMAL); Platelet Estimate Decreased (Adequate)
--- NOTE | 2021-09-13 09:37 | PM.CNNEP ---
Assessment and Plan Assessment and plan (1) KONRAD (acute kidney injury): Code(s): N17.9 - Acute kidney failure, unspecified Status: Acute Assessment and Plan: normal baseline creatinine suspect multifactorial ATN: COVID-19 infection bacteremia + UTI fluctuating hemodynamics hypoxia no critical electrolytes and making urine (with diuretic use) renal ultrasound noted follow-up on urine electrolytes follow repeat labs and UOP (2) Pneumonia due to COVID-19 virus: Code(s): U07.1 - COVID-19; J12.82 - Pneumonia due to coronavirus disease 2018 Status: Acute Assessment and Plan: continue supportive therapy s/p remdesivir and steroids follow respiratory status (3) Acute hypoxemic respiratory failure: Code(s): J96.01 - Acute respiratory failure with hypoxia Status: Acute Assessment and Plan: at high risk for needing ventilator support tolerated BiPAP therapy complicated by known COPD and AMANDA (4) Sepsis: Code(s): A41.9 - Sepsis, unspecified organism Status: Acute Assessment and Plan: from pneumonia, COVID, and UTI on antibiotic therapy follow culture data (5) Urinary tract infection: Code(s): N39.0 - Urinary tract infection, site not specified Status: Acute Assessment and Plan: urine culture with Enterococcus complete course of antibiotics Will continue to follow. History of Present Illness Reason for Consult Consult date: 09/13/21 Reason for consult: acute renal failure Chief Complaint Chief complaint: Acute Hypokalemia, COPD, CHF, Atrial Fib History of Present Illness Narrative: The patient is a 76-year-old female with extensive past medical history as outlined below who presented to [facility] Emergency room from her nursing facility due to issues related to hypoxia. The patient has been admitted to the hospital for almost a month so most of the information I have obtained is from review of the electronic medical record as well as discussion with the physicians and nurses involved her care supplemented by what the patient could tell me. Apparently, the nursing staff noted that the patient's oxygen saturations have been running 80% despite all conservative therapy to improve it. Given her complex medical history, EMS was called the patient was indeed hypoxic and required further supplemental oxygen. She was transferred to the ER for further evaluation therapy. She was immediately placed on CPAP and hence some of the history was unable to be obtained until after her respiratory status improved to some degree. Preliminary workup in the emergency room demonstrated ongoing hypoxia which subsequently led to admission to the hospital. Since her admission, her acute hypoxic respiratory failure was discovered to be secondary to COVID-19 pneumonia and she has required on and off CPAP since her admission. Her mental status has continued to fluctuate during this hospital stay as well fall to be secondary to her COVID-19 infection and possible Enterococcus UTI that has been treated with IV antibiotic therapy. She has been on and off diuretic therapy in effort to try to promote a try long strategy for treatment of her COVID-19 pneumonia as well. His also been noted recently that her kidney function has been declining as well. Renal consultation was requested due to her acute kidney injury/acute renal failure. From review of records, the patient's kidney function is normal at baseline but in the last several days her kidney function has been deteriorating. The patient is somewhat familiar to me as I had seen her about a year ago when she was hospitalized here at [facility] for acute kidney injury/acute renal failure as well. However, by the time of her discharge, her kidney function had normalized with conservative therapy. Her risk factors for acute kidney injury include COVID-19 infection, p
--- NOTE | 2021-09-13 09:49 | PM.IMPN ---
Progress Note: A&P Assessment and Plan (1) COVID-19: Code(s): U07.1 - COVID-19 Status: Acute Assessment and Plan: Patient tested positive on rapid COVID test confirmed by PCR on August 23, 2021. Patient was appropriately started on remdesivir and dexamethasone. Patient tested positive for COVID-19 on 08/23 and started on remdesivir, dexamethasone on 05/28 - Continue Remdesivir for 10 days -CPAP continue home treatment. - Dexamethasone 6 mg IV for 05/28 days - Continuous pulse oximetry - Prone positioning as tolerated. -no evidence of affect and mood. -wean off oxygen (2) Septicemia: Code(s): A41.9 - Sepsis, unspecified organism Status: Acute Assessment and Plan: Patient had fever, hypotension worsening oxygenation and KONRAD consistent with sepsis. She may have pneumonia and she is also being worked up for a pyelonephritis 08/17/2022 Patient grew out methicillin sensitive Staph aureus in 2 blood cultures from 08 17 and has been treated with vancomycin and cefepime. Her mental status has improved. Repeat Blood cultures without growth. Cefepime and vancomycin are stopped on 08/26/2021. Patient started on cefazolin 1 G IV q 8hrs (08/26/2021). First negative culture was 1 11/07 Completed 2 weeks course of IV antibiotics Blood culture was repeated on 09/12/2021 Patient is interested to go to rehab pending improvement in oxygenation (3) Altered mental status: Code(s): R41.82 - Altered mental status, unspecified Status: Acute Assessment and Plan: Altered mental status; patient is more alert (4) KONRAD (acute kidney injury): Code(s): N17.9 - Acute kidney failure, unspecified Status: Acute Assessment and Plan: Resolved acute nonoliguric acute kidney injury creatinine stable at 0.8. It is felt to be an acute kidney injury related to ATN. UA noted. Lasix and Entresto was discontinued pending nephrology evaluation (5) Acute and chronic respiratory failure with hypercapnia: Code(s): J96.22 - Acute and chronic respiratory failure with hypercapnia Status: Chronic Assessment and Plan: Secondary to COVID-19 pneumonia keep saturation over 90 (6) COPD exacerbation: Code(s): J44.1 - Chronic obstructive pulmonary disease with (acute) exacerbation Status: Acute Assessment and Plan: Appreciate pulmonary input. Continue home medications. Continue inhaler treatment (7) Hypokalemia: Code(s): E87.6 - Hypokalemia Status: Acute Assessment and Plan: Replaced added Aldactone (8) UTI (urinary tract infection): Code(s): N39.0 - Urinary tract infection, site not specified Status: Acute Assessment and Plan: UA showing 2+ blood, 11-20 red cells and 16-20 white cells. Negative leukocyte esterase and negative nitrates. Urine culture growing Enterococcus species 100 K that is sensitive to ampicillin. Her Khan catheter has been exchanged already. (9) Unresponsive: Code(s): R41.89 - Other symptoms and signs involving cognitive functions and awareness Status: Acute Assessment and Plan: Most likely related to severe sepsis resolved (10) Atrial fibrillation: Qualifiers: Atrial fibrillation type: unspecified Qualified Code(s): I48.91 - Unspecified atrial fibrillation Code(s): I48.91 - Unspecified atrial fibrillation Status: Chronic Assessment and Plan: Patient with chronic atrial fibrillation. Heart rate was well controlled with Coreg. Coreg held due to the hypotension. Resume Coreg as blood pressure tolerates. Resume Xarelto (11) Congestive heart failure (CHF): Qualifiers: Heart failure type: unspecified Heart failure chronicity: chronic Qualified Code(s): I50.9 - Heart failure, unspecified Code(s): I50.9 - Heart failure, unspecified Status: Chronic Assessment and Plan: Acute on
--- NOTE | 2021-09-13 13:56 | PCNFU ---
Nutrition Follow-Up Complete: Inadequate oral intake related to decreased appetite as evidenced by average intake of 10% and pt. refusing several meals. Goal: Patient to meet estimated nutritional needs. Pt is slowly progressing towards goal Pt current nutrition is regular diet and dietary supplement Last recorded weight is 117.2 kg. Bowel Motility: +BM 09/12 Labs Reviewed: hgb 8.1, hct 26.7, Mg 8.1, Cl 92, CO 2 >40, GFR 21, BUN 51, Cr 2.3, Uric acid 9.4, CK 23 Meds Noted: bentyl, ferrous sulfate, mag-ox, lopressor, protonix, trental, lyrica, zoloft, aldactone, vitamin D Skin: sacrum maceration, groin maceration Additional Notes: Unable to visit with pt due to follow covid precautions. Attempted to call pt x2 but no answer. Current nutrition is a regular diet and dietary supplement of ensure clear BID providing an additional 240kcal and 8g of protein. Reported intake is 0% x3, 25%, and 5% with pt refusing meals. Spoke to nursing via phone who confirms reported intake and refusal of meals. Nursing reports that they have been able to get pt to drink the dietary supplement and were able to get her to eat a sandwich. Nursing reports that pt appears to be a picky eater and does not like sweet foods, oatmeal, cream of wheat, or coffee. Diet office has been notified of this. Nursing agrees to continue to encourage intake of regular diet and dietary supplement. RDN placed orders to increase dietary supplement from BID to TID. Nursing staff and diet office have been notified. Agree with diet orders at this time. Will continue to follow. Monitor pt. labs, medications, weight and oral intake every 3 days.
[2021-09-13] MEDS: RIVAROXABAN 20 MG TABLET PO (18:07)
[2021-09-13 23:22] LABS: Creatinine Urine 132.9 mg/dL
[2021-09-13 23:26] LABS: Potassium Urine Random 27.8 meq/L; Sodium Urine Random 17 meq/L
[2021-09-14] VITALS (15 sets, daily range): BP systolic 128–135; BP diastolic 70–77; PULSE 72–92; RESP 17–22; TEMP 35.9–36.4; O2SAT 87–100
[2021-09-14] MEDS: LEVOTHYROXINE SODIUM 125 MCG TABLET PO (06:37)
[2021-09-14] MEDS: LIDOCAINE 5% PATCH 1 PATCH TRANSDERM (08:43)
[2021-09-14] MEDS: SERTRALINE HCL 25 MG TABLET PO (08:43)
[2021-09-14] MEDS: PREGABALIN (*CRX) 50 MG CAPSULE PO ×2 (08:43→20:40)
[2021-09-14] MEDS: PENTOXIFYLLINE 400 MG TABCR PO ×2 (08:44→17:18)
[2021-09-14] MEDS: CHOLECALCIFEROL 1,000 UNITS TABLET 1000 UNITS PO (08:44)
[2021-09-14] MEDS: FERROUS SULFATE 324 MG TABLET PO ×2 (08:44→17:19)
[2021-09-14] MEDS: METOPROLOL TARTRATE 50 MG TAB PO ×2 (08:44→20:41)
[2021-09-14] MEDS: SPIRONOLACTONE 25 MG TABLET PO (08:44)
[2021-09-14] MEDS: MAGNESIUM OXIDE 400 MG TABLET PO (08:44)
[2021-09-14] MEDS: PANTOPRAZOLE 40 MG TABLET PO ×2 (08:44→20:41)
[2021-09-14] MEDS: TOLNAFTATE 1% POWDER 45 GM BTL 1 APPLIC TOPICAL ×2 (08:46→20:43)
[2021-09-14] MEDS: DICYCLOMINE HCL 10 MG CAPSULE 20 MG PO ×2 (08:47→17:19)
[2021-09-14] MEDS: FLUTICASONE/UMECLIDIN/VILANTER 100-62.5-25 MCG ELLIPTA 1 PUFF INHALATION (10:02)
--- NOTE | 2021-09-14 10:06 | P.PNIM_ITS ---
Progress Note: A&P Assessment and Plan (1) COVID-19: Code(s): U07.1 - COVID-19 Status: Acute Assessment and Plan: Patient tested positive on rapid COVID test confirmed by PCR on August 23, 2021. Patient was appropriately started on remdesivir and dexamethasone. Patient tested positive for COVID-19 on 08/23 and started on remdesivir, dexamethasone on 05/28 - Continue Remdesivir for 10 days -CPAP continue home treatment. - Dexamethasone 6 mg IV for 05/28 days - Continuous pulse oximetry - Prone positioning as tolerated. -no evidence of affect and mood. -wean off oxygen (2) Septicemia: Code(s): A41.9 - Sepsis, unspecified organism Status: Acute Assessment and Plan: Patient had fever, hypotension worsening oxygenation and KONRAD consistent with sepsis. She may have pneumonia and she is also being worked up for a pyelonephritis 08/17/2022 Patient grew out methicillin sensitive Staph aureus in 2 blood cultures from 08 17 and has been treated with vancomycin and cefepime. Her mental status has improved. Repeat Blood cultures without growth. Cefepime and vancomycin are stopped on 08/26/2021. Patient started on cefazolin 1 G IV q 8hrs (08/26/2021). First negative culture was 1 11/07 Completed 2 weeks course of IV antibiotics Blood culture was repeated on 09/12/2021 Patient is interested to go to rehab pending improvement in oxygenation (3) Altered mental status: Code(s): R41.82 - Altered mental status, unspecified Status: Acute Assessment and Plan: Altered mental status; patient is more alert (4) KONRAD (acute kidney injury): Code(s): N17.9 - Acute kidney failure, unspecified Status: Acute Assessment and Plan: Resolved acute nonoliguric acute kidney injury creatinine stable at 0.8. It is felt to be an acute kidney injury related to ATN. UA noted. Lasix and Entresto was discontinued final nephrology recommendation pending repeat CMP (5) Acute and chronic respiratory failure with hypercapnia: Code(s): J96.22 - Acute and chronic respiratory failure with hypercapnia Status: Chronic Assessment and Plan: Secondary to COVID-19 pneumonia keep saturation over 90 (6) COPD exacerbation: Code(s): J44.1 - Chronic obstructive pulmonary disease with (acute) exacerbation Status: Acute Assessment and Plan: Appreciate pulmonary input. Continue home medications. Continue inhaler treatment (7) Hypokalemia: Code(s): E87.6 - Hypokalemia Status: Acute Assessment and Plan: Replaced added Aldactone (8) UTI (urinary tract infection): Code(s): N39.0 - Urinary tract infection, site not specified Status: Acute Assessment and Plan: UA showing 2+ blood, 11-20 red cells and 16-20 white cells. Negative leukocyte esterase and negative nitrates. Urine culture growing Enterococcus species 100 K that is sensitive to ampicillin. Her Khan catheter has been exchanged already. (9) Unresponsive: Code(s): R41.89 - Other symptoms and signs involving cognitive functions and awareness Status: Acute Assessment and Plan: Most likely related to severe sepsis resolved (10) Atrial fibrillation: Qualifiers: Atrial fibrillation type: unspecified Qualified Code(s): I48.91 - Unspecified atrial fibrillation Code(s): I48.91 - Unspecified atrial fibrillation Status: Chronic Assessment and Plan: Patient with chronic a
--- NOTE | 2021-09-14 11:12 | PCPTNOTE ---
Patient was with nursing when first got to the room. Nursing stated that the pts oxygen dropped to ~50% when she was rolling in the bed. Pt is currently with respiratory getting on the bipap.
[2021-09-14 11:16] LABS: Basophils Percent Auto 0.5 % (0.2-1.2); Eosinophils Absolute Auto 0.1 K/mm3 (0-0.3); Eosinophils Percent Auto 2.1 % (0-4.4); Hematocrit 27.2 % (37.0-47.0); Hemoglobin 8.1 g/dL (12.0-15.0); Immature Granulocyte Absolute 0.02 K/mm3 (0.00-0.031); Immature Granulocyte Percent A 0.5 % (0-0.5); Lymphocytes Percent Auto 18.8 % (18.3-44.2); Mean Corpuscular HGB Conc 29.8 g/dl (32-36); Mean Corpuscular Hemoglobin 31.4 pg (26-34); Mean Corpuscular Volume 105.4 fl (80-100); Mean Platelet Volume 11.9 fl (7.4-10.4); Monocytes Absolute Auto 0.3 K/mm3 (0.1-0.6); Monocytes Percent Auto 9.1 % (2.6-8.5); Neutrophils Absolute Auto 2.6 K/mm3 (1.3-6.7); Platelet Count Result 156 k/mm3 (150-375); Red Blood Count 2.58 M/mm3 (4.2-5.4); Red Cell Distribution Width 15.5 % (11.5-14.5); White Blood Count 3.7 K/mm3 (4.5-10.0)
[2021-09-14] MEDS: MENTHOL 10% / METHYL SALICYLATE 15% 57 GM TUBE 1 APPLIC TOPICAL (11:32)
--- NOTE | 2021-09-14 13:39 | P.PNNP_ITS ---
Progress Note: A&P Assessment and Plan (1) KONRAD (acute kidney injury): Code(s): N17.9 - Acute kidney failure, unspecified Status: Acute Assessment and Plan: * normal baseline creatinine * suspect multifactorial ATN: * COVID-19 infection * bacteremia + UTI * fluctuating hemodynamics * hypoxia * no critical electrolytes and making urine (with diuretic use) * renal ultrasound noted * urine electrolytes are prerenal * follow repeat labs and UOP (2) Pneumonia due to COVID-19 virus: Code(s): U07.1 - COVID-19; J12.82 - Pneumonia due to coronavirus disease 2019 Status: Acute Assessment and Plan: * continue supportive therapy * s/p remdesivir and steroids * follow respiratory status (3) Acute hypoxemic respiratory failure: Code(s): J96.01 - Acute respiratory failure with hypoxia Status: Acute Assessment and Plan: * at high risk for needing ventilator support * tolerated BiPAP therapy * complicated by known COPD and AMANDA (4) Sepsis: Code(s): A41.9 - Sepsis, unspecified organism Status: Acute Assessment and Plan: * from pneumonia, COVID, and UTI * completed course of antibiotics (5) Urinary tract infection: Code(s): N39.0 - Urinary tract infection, site not specified Status: Acute Assessment and Plan: * urine culture with Enterococcus * complete course of antibiotics Will continue to follow. Subjective Date/time seen: 09/14/21 13:39 Respiratory status seems relatively stable but she is currently on BiPAP at the time of my visit; still requiring signifcant oxygen support; repeat imaging continues to show extensive/diffuse pneumonia; no issues overnight or earlier this AM. Exam Narrative: General: ill appearing female on BiPAP Heart: normal S1 and S2; no rub Lungs: coarse breath sounds Abdomen: soft, nontender, nondistended, positive bowel sounds Extremities: no cyanosis or clubbing; trace edema Skin: warm and dry Objective Data Vital Signs Vital Signs: Vital Signs Temp Pulse Resp BP Pulse Ox 09/14/21 11:10 77 20 92 09/14/21 10:02 91 09/14/21 08:44 87 09/14/21 08:00 92 09/14/21 06:00 36.4 C 84 20 132/77 92 09/14/21 03:20 92 17 92 01/26/22 23:40 92 16 93 09/13/21 23:01 88 09/13/21 21:33 36.4 C L 88 20 128/45 L 90 09/13/21 20:00 92 16 93 Intake/Output Intake/Output: Intake & Output 09/11/21 09/12/21 09/13/21 09/14/21 23:59 23:59 23:59 23:59 Intake Total 1450 600 730 120 Output Total 500 475 400 250 Balance 950 125 330 -130 Meds/Results Medications: Active Medications Generic Name Dose Route Start Last Admin Trade Name Freq PRN Reason Stop Dose Admin Acetaminophen 500 mg 08/10/21 07:46 09/13/21 09:24 Acetaminophen 500 Mg Tablet PO 10/09/21 07:45 500 mg Q6H PRN Administration Pain (1-3) Or Fever Albuterol 1 puff 08/10/21 07:46 Albuterol Sulfate (*Sp) Aerosol 1 Puff INHALATION 10/09/21 07:45 Q4-6H PRN Shortness Of Breath Dicyclomine HCl 20 mg 08/10/21 09:00 09/14/21 17:19 Dicyclomine Hcl 10 Mg Capsule PO 02
--- NOTE | 2021-09-14 13:39 | PM.PNNEP ---
Progress Note: A&P Assessment and Plan (1) KONRAD (acute kidney injury): Code(s): N17.9 - Acute kidney failure, unspecified Status: Acute Assessment and Plan: normal baseline creatinine suspect multifactorial ATN: COVID-19 infection bacteremia + UTI fluctuating hemodynamics hypoxia no critical electrolytes and making urine (with diuretic use) renal ultrasound noted urine electrolytes are prerenal follow repeat labs and UOP (2) Pneumonia due to COVID-19 virus: Code(s): U07.1 - COVID-19; J12.82 - Pneumonia due to coronavirus disease 2019 Status: Acute Assessment and Plan: continue supportive therapy s/p remdesivir and steroids follow respiratory status (3) Acute hypoxemic respiratory failure: Code(s): J96.01 - Acute respiratory failure with hypoxia Status: Acute Assessment and Plan: at high risk for needing ventilator support tolerated BiPAP therapy complicated by known COPD and AMANDA (4) Sepsis: Code(s): A41.9 - Sepsis, unspecified organism Status: Acute Assessment and Plan: from pneumonia, COVID, and UTI completed course of antibiotics (5) Urinary tract infection: Code(s): N39.0 - Urinary tract infection, site not specified Status: Acute Assessment and Plan: urine culture with Enterococcus complete course of antibiotics Will continue to follow. Subjective Date/time seen: 09/14/21 13:39 Respiratory status seems relatively stable but she is currently on BiPAP at the time of my visit; still requiring signifcant oxygen support; repeat imaging continues to show extensive/diffuse pneumonia; no issues overnight or earlier this AM. Exam Narrative: General: ill appearing female on BiPAP Heart: normal S1 and S2; no rub Lungs: coarse breath sounds Abdomen: soft, nontender, nondistended, positive bowel sounds Extremities: no cyanosis or clubbing; trace edema Skin: warm and dry Objective Data Vital Signs Vital Signs: Vital Signs Temp Pulse Resp BP Pulse Ox 09/14/21 11:10 77 20 92 09/14/21 10:02 91 09/14/21 08:44 87 09/14/21 08:00 92 09/14/21 06:00 36.4 C 84 20 132/77 92 09/14/21 03:20 92 17 92 09/13/21 23:40 92 16 93 09/13/21 23:01 88 01/26/22 21:33 36.4 C L 88 20 128/45 L 90 09/13/21 20:00 92 16 93 Intake/Output Intake/Output: Intake & Output 09/11/21 09/12/21 09/13/21 09/14/21 23:59 23:59 23:59 23:59 Intake Total 1450 600 730 120 Output Total 500 475 400 250 Balance 950 125 330 -130 Meds/Results Medications: Active Medications Generic Name Dose Route Start Last Admin Trade Name Freq PRN Reason Stop Dose Admin Acetaminophen 500 mg 08/10/21 07:46 09/13/21 09:24 Acetaminophen 500 Mg Tablet PO 10/09/21 07:45 500 mg Q6H PRN Administration Pain (1-3) Or Fever Albuterol 1 puff 08/10/21 07:46 Albuterol Sulfate (*Sp) Aerosol 1 Puff INHALATION 10/09/21 07:45 Q4-6H PRN Shortness Of Breath Dicyclomine HCl 20 mg 08/10/21 09:00 09/14/21 17:19 Dicyclomine Hcl 10 Mg Capsule PO 10/09/21 08:59 20 mg BID GUCCI Administration Ferrous Sulfate 324 mg 08/10/21 08:00 09/14/21 17:19 Ferrous Sulfate 324 Mg Tablet PO 10/09/21 07:59 324 mg BIDWM GUCCI Administration Fluticasone/Umeclidinium/Vilanterol 1 puff 08/10/21 07:50 09/14/21 10:02 Fluticasone/Umeclidin/Vilanter 100-62.5-25 Mcg Ellipta INHALATION 10/09/21 07:49 1 puff Q24H GUCCI Administration Furosemide 40 mg 09/10/21 09:00 09/12/21 08:58 Furosemide 40 Mg Tablet PO 40 mg DAILY GUCCI Administration Levothyroxine Sodium 125 mcg 08/10/21 06:30 09/14/21 06:37 Levothyroxine Sodium 125 Mcg Tablet PO 10/09/21 06:29 125 mcg DAILY@0630 GUCCI Administration Lidocaine 1 patch 08/23/21 11:00 09/14/21 08:43 Lidocaine 5% Patch TRANSDERM 1 patch DAILY GUCCI Administration Magnesium O
--- NOTE | 2021-09-14 14:17 | PCPTNOTE ---
The patient treatment was not able to be completed on 09/14 due to pts condition and still on BIPAP. Will plan to continue treatment per plan of care.
[2021-09-14] MEDS: RIVAROXABAN 20 MG TABLET PO (17:19)
[2021-09-14 18:20] LABS: Albumin Level 3.3 g/dL (3.5-5.1); Anion Gap 6 mmol/L (8-16); Blood Urea Nitrogen 56 mg/dL (7-17); Carbon Dioxide 39 mmol/L (22-30); Chloride 95 mmol/L (98-107); Estimated CRCL calculation 24 ml/min; Estimated Glomerular Filt Rate 20; Glucose 79 mg/dL (65-110); Phosphorus 3.9 mg/dL (2.5-4.5); Potassium 3.8 mmol/L (3.4-5.0); Sodium 140 mmol/L (137-145)
[2021-09-15] VITALS (12 sets, daily range): BP systolic 111–141; BP diastolic 56–68; PULSE 60–100; RESP 16–22; TEMP 35.8–36.4; O2SAT 91–100
[2021-09-15] MEDS: LEVOTHYROXINE SODIUM 125 MCG TABLET PO (04:53)
[2021-09-15] MEDS: FLUTICASONE/UMECLIDIN/VILANTER 100-62.5-25 MCG ELLIPTA 1 PUFF INHALATION (08:40)
[2021-09-15] MEDS: SPIRONOLACTONE 25 MG TABLET PO (08:41)
[2021-09-15] MEDS: METOPROLOL TARTRATE 50 MG TAB PO ×2 (08:41→20:25)
[2021-09-15] MEDS: DICYCLOMINE HCL 10 MG CAPSULE 20 MG PO ×2 (08:41→17:36)
[2021-09-15] MEDS: FERROUS SULFATE 324 MG TABLET PO ×2 (08:41→17:36)
[2021-09-15] MEDS: SERTRALINE HCL 25 MG TABLET PO (08:41)
[2021-09-15] MEDS: MAGNESIUM OXIDE 400 MG TABLET PO (08:42)
[2021-09-15] MEDS: PANTOPRAZOLE 40 MG TABLET PO ×2 (08:42→20:26)
[2021-09-15] MEDS: CHOLECALCIFEROL 1,000 UNITS TABLET 1000 UNITS PO (08:42)
[2021-09-15] MEDS: PREGABALIN (*CRX) 50 MG CAPSULE PO ×2 (08:45→20:25)
[2021-09-15] MEDS: TOLNAFTATE 1% POWDER 45 GM BTL 1 APPLIC TOPICAL ×2 (08:46→20:26)
--- NOTE | 2021-09-15 11:00 | PM.IMPN ---
Progress Note: A&P Assessment and Plan (1) COVID-19: Code(s): U07.1 - COVID-19 Status: Acute Assessment and Plan: Patient tested positive on rapid COVID test confirmed by PCR on August 23, 2021. Patient was appropriately started on remdesivir and dexamethasone. Patient tested positive for COVID-19 on 08/23 and started on remdesivir, dexamethasone on 05/28 - Continue Remdesivir for 10 days -CPAP continue home treatment. - Dexamethasone 6 mg IV for 05/28 days - Continuous pulse oximetry - Prone positioning as tolerated. -no evidence of affect and mood. -patient still have high oxygen requirement -CT scan shows diffuse pneumonia consistent with COVID (2) Septicemia: Code(s): A41.9 - Sepsis, unspecified organism Status: Acute Assessment and Plan: Patient had fever, hypotension worsening oxygenation and KONRAD consistent with sepsis. She may have pneumonia and she is also being worked up for a pyelonephritis 08/17/2022 Patient grew out methicillin sensitive Staph aureus in 2 blood cultures from 08 17 and has been treated with vancomycin and cefepime. Her mental status has improved. Repeat Blood cultures without growth. Cefepime and vancomycin are stopped on 08/26/2021. Patient started on cefazolin 1 G IV q 8hrs (08/26/2021). First negative culture was 1 11/07 Completed 2 weeks course of IV antibiotics Blood culture was repeated on 09/12/2021 Patient is interested to go to rehab pending improvement in oxygenation (3) Altered mental status: Code(s): R41.82 - Altered mental status, unspecified Status: Acute Assessment and Plan: Altered mental status; patient is more alert (4) KONRAD (acute kidney injury): Code(s): N17.9 - Acute kidney failure, unspecified Status: Acute Assessment and Plan: Resolved acute nonoliguric acute kidney injury creatinine stable at 0.8. It is felt to be an acute kidney injury related to ATN. UA noted. Lasix and Entresto was discontinued final nephrology recommendation pending repeat CMP (5) Acute and chronic respiratory failure with hypercapnia: Code(s): J96.22 - Acute and chronic respiratory failure with hypercapnia Status: Chronic Assessment and Plan: Secondary to COVID-19 pneumonia keep saturation over 90 (6) COPD exacerbation: Code(s): J44.1 - Chronic obstructive pulmonary disease with (acute) exacerbation Status: Acute Assessment and Plan: Appreciate pulmonary input. Continue home medications. Continue inhaler treatment (7) Hypokalemia: Code(s): E87.6 - Hypokalemia Status: Acute Assessment and Plan: Replaced added Aldactone (8) UTI (urinary tract infection): Code(s): N39.0 - Urinary tract infection, site not specified Status: Acute Assessment and Plan: UA showing 2+ blood, 11-20 red cells and 16-20 white cells. Negative leukocyte esterase and negative nitrates. Urine culture growing Enterococcus species 100 K that is sensitive to ampicillin. Her Khan catheter has been exchanged already. (9) Unresponsive: Code(s): R41.89 - Other symptoms and signs involving cognitive functions and awareness Status: Acute Assessment and Plan: Most likely related to severe sepsis resolved (10) Atrial fibrillation: Qualifiers: Atrial fibrillation type: unspecified Qualified Code(s): I48.91 - Unspecified atrial fibrillation Code(s): I48.91 - Unspecified atrial fibrillation Status: Chronic Assessment and Plan: Patient with chronic atrial fibrillation. Heart rate was well controlled with Coreg. Coreg held due to the hypotension. Resume Coreg as blood pressure tolerates. Resume Xarelto (11) Congestive heart failure (CHF): Qualifiers: Heart failure type: unspecified Heart failure chronicity: chronic Qualified Code(s): I50.9 - Heart failure, unspecified Cod
--- NOTE | 2021-09-15 11:10 | PCPTNOTE ---
Transfers were not performed due to patient on continuous BIPAP at this time.
--- NOTE | 2021-09-15 11:10 | PCPTNOTE ---
Patient on continuous BIPAP, RN requested to hold transfers at this time.
--- NOTE | 2021-09-15 12:51 | P.PNNP_ITS ---
Progress Note: A&P Assessment and Plan (1) KONRAD (acute kidney injury): Code(s): N17.9 - Acute kidney failure, unspecified Status: Acute Assessment and Plan: * she actually comes to see me in the office. * Her baseline GFR is around 50 with a creatinine of 1.1-1.2. * She also has KONARD. * suspect multifactorial ATN: * COVID-19 infection * bacteremia + UTI * fluctuating hemodynamics * hypoxia * no critical electrolytes and making urine (with diuretic use) * renal ultrasound noted * urine electrolytes are prerenal * This is happening at the tail end of her long admission. She did have elevated creatinine before when she had active COVID. * She has no rash or eosinophilia. * She had a CT of the chest on the which showed extensive bilateral infiltrates. * She of course had infiltrates when she had the COVID. Not sure if this is leftovers of that. Congestive heart failure could do this as well. Consider an echo 3 things do not get better. * She is on diuretics. * check a cxr * follow repeat labs and UOP (2) Pneumonia due to COVID-19 virus: Code(s): U07.1 - COVID-19; J12.82 - Pneumonia due to coronavirus disease 2018 Status: Acute Assessment and Plan: * continue supportive therapy * s/p remdesivir and steroids * follow respiratory status (3) Acute hypoxemic respiratory failure: Code(s): J96.01 - Acute respiratory failure with hypoxia Status: Acute Assessment and Plan: * at high risk for needing ventilator support * tolerated BiPAP therapy * complicated by known COPD and AMANDA (4) Sepsis: Code(s): A41.9 - Sepsis, unspecified organism Status: Acute Assessment and Plan: * from pneumonia, COVID, and UTI * completed course of antibiotics (5) Urinary tract infection: Code(s): N39.0 - Urinary tract infection, site not specified Status: Acute Assessment and Plan: * urine culture with Enterococcus * complete course of antibiotics Will continue to follow. Subjective Date/time seen: 09/15/21 12:51 Interval history: patient lying in bed on the CPAP machine. She is comfortable and has no complaints. She had some lunch. Review of Systems Cardiovascular: Cardiovascular: Reports no additional cardiovascular complaints Respiratory: Respiratory: Reports no additional respiratory complaints Gastrointestinal: Gastrointestinal: Reports no additional gastrointestinal complaints Genitourinary: Genitourinary: Reports no additional female genitourinary complaints Exam Narrative: WDWN in NAD skin no rash head ncat lungs clear Bilaterally cor reg no rub abd BS+ nontender and soft ext 1+ bilateral edema. Objective Data Vital Signs Vital Signs: Vital Signs - 24 hr 09/14/21 14:00 09/14/21 15:26 09/14/21 15:43 Temperature 36.3 C L Pulse Rate 84 75 Respiratory Rate 18 20 Blood Pressure 128/70 Pulse Oximetry 96 100 100 09/14/21 16:14 09/14/21 16:21 09/14/21 20:10 Temperature Pulse Rate Respiratory Rate 20 Blood Pressure Pulse Oximetry 87 L 92 92 09/14/21 20:20 09/14/21 20:41 09/14/21 21:44 Temperature 35.9 C L Pulse Rate 79 72 79 Respiratory Rate 22 H 22
--- NOTE | 2021-09-15 12:51 | PM.PNNEP ---
Progress Note: A&P Assessment and Plan (1) KONRAD (acute kidney injury): Code(s): N17.9 - Acute kidney failure, unspecified Status: Acute Assessment and Plan: she actually comes to see me in the office. Her baseline GFR is around 50 with a creatinine of 1.1-1.2. She also has KONRAD. suspect multifactorial ATN: COVID-19 infection bacteremia + UTI fluctuating hemodynamics hypoxia no critical electrolytes and making urine (with diuretic use) renal ultrasound noted urine electrolytes are prerenal This is happening at the tail end of her long admission. She did have elevated creatinine before when she had active COVID. She has no rash or eosinophilia. She had a CT of the chest on the which showed extensive bilateral infiltrates. She of course had infiltrates when she had the COVID. Not sure if this is leftovers of that. Congestive heart failure could do this as well. Consider an echo 3 things do not get better. She is on diuretics. check a cxr follow repeat labs and UOP (2) Pneumonia due to COVID-19 virus: Code(s): U07.1 - COVID-19; J12.82 - Pneumonia due to coronavirus disease 2018 Status: Acute Assessment and Plan: continue supportive therapy s/p remdesivir and steroids follow respiratory status (3) Acute hypoxemic respiratory failure: Code(s): J96.01 - Acute respiratory failure with hypoxia Status: Acute Assessment and Plan: at high risk for needing ventilator support tolerated BiPAP therapy complicated by known COPD and AMANDA (4) Sepsis: Code(s): A41.9 - Sepsis, unspecified organism Status: Acute Assessment and Plan: from pneumonia, COVID, and UTI completed course of antibiotics (5) Urinary tract infection: Code(s): N39.0 - Urinary tract infection, site not specified Status: Acute Assessment and Plan: urine culture with Enterococcus complete course of antibiotics Will continue to follow. Subjective Date/time seen: 09/15/21 12:51 Interval history: patient lying in bed on the CPAP machine. She is comfortable and has no complaints. She had some lunch. Review of Systems Cardiovascular: Cardiovascular: Reports no additional cardiovascular complaints Respiratory: Respiratory: Reports no additional respiratory complaints Gastrointestinal: Gastrointestinal: Reports no additional gastrointestinal complaints Genitourinary: Genitourinary: Reports no additional female genitourinary complaints Exam Narrative: WDWN in NAD skin no rash head ncat lungs clear Bilaterally cor reg no rub abd BS+ nontender and soft ext 1+ bilateral edema. Objective Data Vital Signs Vital Signs: Vital Signs - 24 hr 09/14/21 14:00 09/14/21 15:26 09/14/21 15:43 Temperature 36.3 C L Pulse Rate 84 75 Respiratory Rate 18 20 Blood Pressure 128/70 Pulse Oximetry 96 100 100 09/14/21 16:14 09/14/21 16:21 09/14/21 20:10 Temperature Pulse Rate Respiratory Rate 20 Blood Pressure Pulse Oximetry 87 L 92 92 09/14/21 20:20 09/14/21 20:41 09/14/21 21:44 Temperature 35.9 C L Pulse Rate 79 72 79 Respiratory Rate 22 H 22 H Blood Pressure 135/75 Pulse Oximetry 97 97 09/15/21 00:49 09/15/21 03:00 09/15/21 06:00 Temperature 35.8 C L Pulse Rate 90 Respiratory Rate 22 H 22 H 20 Blood Pressure 119/68 Pulse Oximetry 92 92 91 09/15/21 08:00 09/15/21 08:40 09/15/21 08:41 Temperature Pulse Rate 100 100 Respiratory Rate 20 Blood Pressure Pulse Oximetry 95 95 Intake/Output Intake/Output: Intake & Output 09/12/21 09/13/21 09/14/21 09/15/21 23:59 23:59 23:59 23:59 Intake Total 689 089 4284 440 Output Total 475 400 450 150 Balance 125 330 940 290 Meds/Results Medications: Active Medications Generic Name Dose Route Start Last Admin Trade Name Desirae PRN Reason Stop Dose Admin Acetaminophen 500 mg 08/10/21 07
[2021-09-15] MEDS: PENTOXIFYLLINE 400 MG TABCR PO ×2 (13:07→17:36)
[2021-09-15] MEDS: LIDOCAINE 5% PATCH 1 PATCH TRANSDERM (13:08)
[2021-09-15 13:12] LABS: Basophils Percent Auto 0.8 % (0.2-1.2); Eosinophils Absolute Auto 0.1 K/mm3 (0-0.3); Hemoglobin 7.5 g/dL (12.0-15.0); Immature Granulocyte Absolute 0.01 K/mm3 (0.00-0.031); Immature Granulocyte Percent A 0.3 % (0-0.5); Lymphocytes Absolute Auto 0.74 K/mm3 (0.9-3.2); Lymphocytes Percent Auto 20.1 % (18.3-44.2); Mean Corpuscular Hemoglobin 31.8 pg (26-34); Mean Corpuscular Volume 105.9 fl (80-100); Mean Platelet Volume 11.5 fl (7.4-10.4); Monocytes Absolute Auto 0.3 K/mm3 (0.1-0.6); Monocytes Percent Auto 8.7 % (2.6-8.5); Neutrophils Absolute Auto 2.5 K/mm3 (1.3-6.7); Neutrophils Percent Auto 67.1 % (45.5-73.1); Platelet Count Result 155 k/mm3 (150-375); Red Blood Count 2.36 M/mm3 (4.2-5.4); Red Cell Distribution Width 16.1 % (11.5-14.5); White Blood Count 3.7 K/mm3 (4.5-10.0)
[2021-09-15 13:26] LABS: Albumin Level 2.8 g/dL (3.5-5.1); Blood Urea Nitrogen 57 mg/dL (7-17); Calcium 7.8 mg/dL (8.4-10.2); Carbon Dioxide > 40 mmol/L (22-30); Chloride 94 mmol/L (98-107); Estimated CRCL calculation 20 ml/min; Estimated Glomerular Filt Rate 16; Glucose 94 mg/dL (65-110); Phosphorus 3.5 mg/dL (2.5-4.5); Potassium 3.3 mmol/L (3.4-5.0); Sodium 139 mmol/L (137-145)
--- NOTE | 2021-09-15 14:27 | PCNFU ---
Nutrition Follow-Up Complete: Inadequate oral intake related to decreased appetite as evidenced by average intake of 10% and pt. refusing several meals. Goal: Patient to meet estimated nutritional needs. Pt is slowly making progress towards goal Pt current nutrition is regular diet and dietary supplements Last recorded weight is 116.9 kg. Bowel Motility: +BM 09/14 reported Labs Reviewed: hgb 8.1, hct 27.2, alb 3.3, Cl 95, CO2 39, GFR 20, BUN 56, Cr 2.4 Meds Noted: bentyl, ferrous sulfate, synthroid, lidoderm, mag-ox, lopressor, protonix, trental, lyrica, zoloft, aldactone, vitamin D Skin: sacrum maceration, bilateral skin fold groin maceration Additional Notes: Unable to visit with pt due to following covid precautions. Current nutrition is regular diet and dietary supplements of ensure clear TID providing an additional 240kcal and 8g of protein to increase caloric intake. Reported intake is 75%, 10%, 20%, and 50%. Pt remains BiPAP dependant. Spoke to nursing via phone who confirms reported intake and reports that pt has been only drinking about half of the dietary supplement. Nursing notified to continue to encourage intake of regular diet and dietary supplement. Agree with diet order at this time. Will continue to follow. Monitor pt. labs, medications, weight and oral intake every 3 days.
--- NOTE | 2021-09-15 16:07 | PCOTNOTE ---
The OT treatment could not be completed. Will continue plan of care tomorrow, 09/16/21.
[2021-09-15] MEDS: RIVAROXABAN 20 MG TABLET PO (17:36)
[2021-09-16] VITALS (9 sets, daily range): BP systolic 116–128; BP diastolic 51–68; PULSE 54–89; RESP 16–23; TEMP 36.1–36.4; O2SAT 92–100
[2021-09-16] MEDS: LEVOTHYROXINE SODIUM 125 MCG TABLET PO (05:36)
[2021-09-16 07:38] LABS: Basophils Percent Auto 0.6 % (0.2-1.2); Eosinophils Absolute Auto 0.1 K/mm3 (0-0.3); Eosinophils Percent Auto 2.8 % (0-4.4); Hematocrit 26.2 % (37.0-47.0); Hemoglobin 7.7 g/dL (12.0-15.0); Immature Granulocyte Absolute 0.02 K/mm3 (0.00-0.031); Immature Granulocyte Percent A 0.6 % (0-0.5); Lymphocytes Absolute Auto 0.69 K/mm3 (0.9-3.2); Mean Corpuscular HGB Conc 29.4 g/dl (32-36); Mean Corpuscular Hemoglobin 31.2 pg (26-34); Mean Corpuscular Volume 106.1 fl (80-100); Mean Platelet Volume 11.9 fl (7.4-10.4); Monocytes Absolute Auto 0.3 K/mm3 (0.1-0.6); Monocytes Percent Auto 9.1 % (2.6-8.5); Neutrophils Absolute Auto 2.5 K/mm3 (1.3-6.7); Neutrophils Percent Auto 67.9 % (45.5-73.1); Platelet Count Result 157 k/mm3 (150-375); Red Blood Count 2.47 M/mm3 (4.2-5.4); Red Cell Distribution Width 15.9 % (11.5-14.5); White Blood Count 3.6 K/mm3 (4.5-10.0)
[2021-09-16 07:53] LABS: Albumin Level 2.7 g/dL (3.5-5.1); Blood Urea Nitrogen 63 mg/dL (7-17); Calcium 7.7 mg/dL (8.4-10.2); Carbon Dioxide > 40 mmol/L (22-30); Chloride 95 mmol/L (98-107); Estimated CRCL calculation 21 ml/min; Estimated Glomerular Filt Rate 17; Glucose 94 mg/dL (65-110); Phosphorus 3.7 mg/dL (2.5-4.5); Potassium 3.6 mmol/L (3.4-5.0); Sodium 137 mmol/L (137-145)
[2021-09-16 08:25] LABS: Anisocytosis 1+ (NORMAL); Ovalocytes 1+ (NORMAL); Platelet Estimate Adequate (Adequate)
[2021-09-16] MEDS: FLUTICASONE/UMECLIDIN/VILANTER 100-62.5-25 MCG ELLIPTA 1 PUFF INHALATION (08:59)
[2021-09-16] MEDS: PENTOXIFYLLINE 400 MG TABCR PO ×2 (09:05→17:54)
[2021-09-16] MEDS: DICYCLOMINE HCL 10 MG CAPSULE 20 MG PO ×2 (09:05→17:54)
[2021-09-16] MEDS: METOPROLOL TARTRATE 50 MG TAB PO ×2 (09:05→20:35)
[2021-09-16] MEDS: SPIRONOLACTONE 25 MG TABLET PO (09:05)
[2021-09-16] MEDS: CHOLECALCIFEROL 1,000 UNITS TABLET 1000 UNITS PO (09:05)
[2021-09-16] MEDS: SERTRALINE HCL 25 MG TABLET PO (09:06)
[2021-09-16] MEDS: MAGNESIUM OXIDE 400 MG TABLET PO (09:06)
[2021-09-16] MEDS: LIDOCAINE 5% PATCH 1 PATCH TRANSDERM (09:06)
[2021-09-16] MEDS: PANTOPRAZOLE 40 MG TABLET PO ×2 (09:06→20:35)
[2021-09-16] MEDS: TOLNAFTATE 1% POWDER 45 GM BTL 1 APPLIC TOPICAL ×2 (09:06→20:36)
[2021-09-16] MEDS: FERROUS SULFATE 324 MG TABLET PO ×2 (09:06→17:54)
[2021-09-16] MEDS: PREGABALIN (*CRX) 50 MG CAPSULE PO ×2 (09:10→20:35)
--- NOTE | 2021-09-16 10:39 | P.PNNP_ITS ---
Progress Note: A&P Assessment and Plan (1) KONRAD (acute kidney injury): Code(s): N17.9 - Acute kidney failure, unspecified Status: Acute Assessment and Plan: * she actually comes to see me in the office. * Her baseline GFR is around 50 with a creatinine of 1.1-1.2. * She also has KONRAD. * suspect multifactorial ATN: * COVID-19 infection * bacteremia + UTI * fluctuating hemodynamics * hypoxia * no critical electrolytes and making urine (with diuretic use) * renal ultrasound shows normal kidneys * urine electrolytes are prerenal * This is happening at the tail end of her long admission. She did have elevated creatinine before when she had active COVID. * She has no rash or eosinophilia. * She had a CT of the chest on the which showed extensive bilateral infiltrates. They did not use contrast. * She of course had infiltrates when she had the COVID. Not sure if this is leftovers of that. Congestive heart failure could do this as well. Consider an echo if things do not get better. * She is on diuretics. * Chest x-ray shows opacification of the right hemithorax. Consider have Dr. Geoff dickinson by again. * Her creatinine is about the same today. She is showing signs of pre renal azotemia from the diuretics. (2) Pneumonia due to COVID-19 virus: Code(s): U07.1 - COVID-19; J12.82 - Pneumonia due to coronavirus disease 2018 Status: Acute Assessment and Plan: * continue supportive therapy * s/p remdesivir and steroids * follow respiratory status (3) Acute hypoxemic respiratory failure: Code(s): J96.01 - Acute respiratory failure with hypoxia Status: Acute Assessment and Plan: * at high risk for needing ventilator support * tolerated BiPAP therapy * complicated by known COPD and AMANDA (4) Sepsis: Code(s): A41.9 - Sepsis, unspecified organism Status: Acute Assessment and Plan: * from pneumonia, COVID, and UTI * completed course of antibiotics (5) Urinary tract infection: Code(s): N39.0 - Urinary tract infection, site not specified Status: Acute Assessment and Plan: * urine culture with Enterococcus * complete course of antibiotics Will continue to follow. Subjective Date/time seen: 09/16/21 10:39 Interval history: patient lying in bed on oxygen by nasal cannula now. She just finished lunch. She is comfortable and has no complaints. Exam Narrative: WDWN in NAD skin no rash or subQ nodules head ncat lungs clear to auscultation cor reg no rub or gallop abd BS+ nontender and soft ext 1+ bilateral edema. Objective Data Vital Signs Vital Signs: Vital Signs - 24 hr 09/15/21 14:00 09/15/21 14:52 09/15/21 20:25 Temperature 36.4 C Pulse Rate 93 78 Respiratory Rate 18 22 H Blood Pressure 111/56 L Pulse Oximetry 100 93 09/15/21 21:51 09/15/21 22:00 09/16/21 04:16 Temperature 36.1 C L Pulse Rate 60 Respiratory Rate 16 20 22 H Blood Pressure 141/64 H Pulse Oximetry 92 98 94 09/16/21 05:07 09/16/21 08:00 09/16/21 09:01 Temperature 36.4 C L Pulse Rate 67 80 Respiratory Rate 16 23 H 23 H Blood Pressure 117/51 L Pulse Oximetry 100 94 94 09/16/21 09:04 09/16/21 09:05
--- NOTE | 2021-09-16 10:39 | PM.PNNEP ---
Progress Note: A&P Assessment and Plan (1) KONRAD (acute kidney injury): Code(s): N17.9 - Acute kidney failure, unspecified Status: Acute Assessment and Plan: she actually comes to see me in the office. Her baseline GFR is around 50 with a creatinine of 1.1-1.2. She also has KONRAD. suspect multifactorial ATN: COVID-19 infection bacteremia + UTI fluctuating hemodynamics hypoxia no critical electrolytes and making urine (with diuretic use) renal ultrasound shows normal kidneys urine electrolytes are prerenal This is happening at the tail end of her long admission. She did have elevated creatinine before when she had active COVID. She has no rash or eosinophilia. She had a CT of the chest on the which showed extensive bilateral infiltrates. They did not use contrast. She of course had infiltrates when she had the COVID. Not sure if this is leftovers of that. Congestive heart failure could do this as well. Consider an echo if things do not get better. She is on diuretics. Chest x-ray shows opacification of the right hemithorax. Consider have Dr. Tellez stop by again. Her creatinine is about the same today. She is showing signs of pre renal azotemia from the diuretics. (2) Pneumonia due to COVID-19 virus: Code(s): U07.1 - COVID-19; J12.82 - Pneumonia due to coronavirus disease 2018 Status: Acute Assessment and Plan: continue supportive therapy s/p remdesivir and steroids follow respiratory status (3) Acute hypoxemic respiratory failure: Code(s): J96.01 - Acute respiratory failure with hypoxia Status: Acute Assessment and Plan: at high risk for needing ventilator support tolerated BiPAP therapy complicated by known COPD and AMANDA (4) Sepsis: Code(s): A41.9 - Sepsis, unspecified organism Status: Acute Assessment and Plan: from pneumonia, COVID, and UTI completed course of antibiotics (5) Urinary tract infection: Code(s): N39.0 - Urinary tract infection, site not specified Status: Acute Assessment and Plan: urine culture with Enterococcus complete course of antibiotics Will continue to follow. Subjective Date/time seen: 09/16/21 10:39 Interval history: patient lying in bed on oxygen by nasal cannula now. She just finished lunch. She is comfortable and has no complaints. Exam Narrative: WDWN in NAD skin no rash or subQ nodules head ncat lungs clear to auscultation cor reg no rub or gallop abd BS+ nontender and soft ext 1+ bilateral edema. Objective Data Vital Signs Vital Signs: Vital Signs - 24 hr 09/15/21 14:00 09/15/21 14:52 09/15/21 20:25 Temperature 36.4 C Pulse Rate 93 78 Respiratory Rate 18 22 H Blood Pressure 111/56 L Pulse Oximetry 100 93 09/15/21 21:51 09/15/21 22:00 09/16/21 04:16 Temperature 36.1 C L Pulse Rate 60 Respiratory Rate 16 20 22 H Blood Pressure 141/64 H Pulse Oximetry 92 98 94 09/16/21 05:07 09/16/21 08:00 09/16/21 09:01 Temperature 36.4 C L Pulse Rate 67 80 Respiratory Rate 16 23 H 23 H Blood Pressure 117/51 L Pulse Oximetry 100 94 94 09/16/21 09:04 09/16/21 09:05 Temperature Pulse Rate 80 Respiratory Rate Blood Pressure Pulse Oximetry 94 Intake/Output Intake/Output: Intake & Output 09/13/21 09/14/21 09/15/21 09/16/21 23:59 23:59 23:59 23:59 Intake Total 730 1390 1180 100 Output Total 400 450 750 350 Balance 330 940 430 -250 Meds/Results Medications: Active Medications Generic Name Dose Route Start Last Admin Trade Name Freq PRN Reason Stop Dose Admin Acetaminophen 500 mg 08/10/21 07:46 09/13/21 09:24 Acetaminophen 500 Mg Tablet PO 10/09/21 07:45 500 mg Q6H PRN Administration Pain (1-3) Or Fever Albuterol 1 puff 08/10/21 07:46 Albuterol Sulfate (*Sp) Aerosol 1 Puff INHALATION 10/09/21 07:45 Q4-6H PRN Shortness Of Breath
--- NOTE | 2021-09-16 14:43 | PM.IMPN ---
Progress Note: A&P Assessment and Plan (1) COVID-19: Code(s): U07.1 - COVID-19 Status: Acute Assessment and Plan: Patient tested positive on rapid COVID test confirmed by PCR on August 23, 2021. Patient was appropriately started on remdesivir and dexamethasone. Patient tested positive for COVID-19 on 08/23 and started on remdesivir, dexamethasone on 05/28 - Continue Remdesivir for 10 days -CPAP continue home treatment. - Dexamethasone 6 mg IV for 05/28 days - Continuous pulse oximetry - Prone positioning as tolerated. -no evidence of affect and mood. -patient still have high oxygen requirement -CT scan shows diffuse pneumonia consistent with COVID (2) Septicemia: Code(s): A41.9 - Sepsis, unspecified organism Status: Acute Assessment and Plan: Patient had fever, hypotension worsening oxygenation and KONRAD consistent with sepsis. She may have pneumonia and she is also being worked up for a pyelonephritis 08/17/2022 Patient grew out methicillin sensitive Staph aureus in 2 blood cultures from 08 17 and has been treated with vancomycin and cefepime. Her mental status has improved. Repeat Blood cultures without growth. Cefepime and vancomycin are stopped on 08/26/2021. Patient started on cefazolin 1 G IV q 8hrs (08/26/2021). First negative culture was 1 11/07 Completed 2 weeks course of IV antibiotics Blood culture was repeated on 09/12/2021 Patient is interested to go to rehab pending improvement in oxygenation (3) Altered mental status: Code(s): R41.82 - Altered mental status, unspecified Status: Acute Assessment and Plan: Altered mental status; patient is more alert (4) KONRAD (acute kidney injury): Code(s): N17.9 - Acute kidney failure, unspecified Status: Acute Assessment and Plan: Resolved acute nonoliguric acute kidney injury creatinine stable at 0.8. It is felt to be an acute kidney injury related to ATN. UA noted. 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 However she seems she had more effusion developed over the past few days. Will check with Renal we can start diuresis gently and/or presents to be attempted however thoracentesis is planned few days back was aborted due to lack of any pleural fluid at that time. Will also re-consult Pulmonary (5) Acute and chronic respiratory failure with hypercapnia: Code(s): J96.22 - Acute and chronic respiratory failure with hypercapnia Status: Chronic Assessment and Plan: Secondary to COVID-19 pneumonia keep saturation over 90 (6) COPD exacerbation: Code(s): J44.1 - Chronic obstructive pulmonary disease with (acute) exacerbation Status: Acute Assessment and Plan: Appreciate pulmonary input. Continue home medications. Continue inhaler treatment (7) Hypokalemia: Code(s): E87.6 - Hypokalemia Status: Acute Assessment and Plan: Replaced added Aldactone (8) UTI (urinary tract infection): Code(s): N39.0 - Urinary tract infection, site not specified Status: Acute Assessment and Plan: UA showing 2+ blood, 11-20 red cells and 16-20 white cells. Negative leukocyte esterase and negative nitrates. Urine culture growing Enterococcus species 100 K that is sensitive to ampicillin. Her Khan catheter has been exchanged already. (9) Unresponsive: Code(s): R41.89 - Other symptoms and signs involving cognitive functions and awareness Status: Acute Assessment and Plan: Most likely related to severe sepsis resolved (10) Atrial fibrillation: Qualifiers: Atrial fibrillation type: unspecified Qualified Code(s): I48.91 - Unspecified atrial fibrillation C
--- NOTE | 2021-09-16 15:47 | PM.PNPUL ---
Progress Note: A&P Assessment and Plan (1) Acute and chronic respiratory failure with hypercapnia: Code(s): J96.22 - Acute and chronic respiratory failure with hypercapnia Status: Chronic Assessment and Plan: She has baseline CO2 50-60s, admitted Aug 10, 2021 with sepsis due to pneumonia, then developed COVID August 23 with treatment including remdesivir & dexamethasone. Antibiotics early in the admission included Vancomycin until Aug 20 and Cefepime until 08/17, changed to Ancef until Aug 26, remdesivir until Aug 26. She also developed urinary tract infection, alteration in mental status, gradual improvement in her pCO2 wearing BiPAP at times alternating with AVAPS. Her oxygen requirement went up September 10 and is now at 70%. Her last CT of everything chest/abd/pelvis Sep 12 = Extensive bilateral airspace disease, compatible with pneumonia; Small pleural effusions, Cholelithiasis, Small hyperdense left renal lesions, not well visualized due to streak artifact. Correlation with ultrasound recommended. She has not been able to have a thoracentesis on the right due to absence of fluid on ultrasound on Sep 01, so the CT chest may indicate more fluid that she really has. The right hemidiaphragm is elevated from prior surgery. It is not clear if she has an active new infection or if her infiltrates are residual from COVID, or if these represent pulmonary edema due to her CHF. She has not had antibiotics for 3 weeks. Will check urine antigens for pneumococcus, Legionella, send viral multiplex; change settings on BiPAP, check ABG; consider code change. I am not hopeful that she has a reasonable chance to improve and be discharged. She has been here 37 days, and has not been able to get to a stable baseline during that time under constant care by multiple doctors. (2) Pleural effusion: Code(s): J90 - Pleural effusion, not elsewhere classified Status: Acute Assessment and Plan: Right side seems to have increased effusion, however this has not been enough to have a thoracentesis. On the [facility] CT Sep 12, there was little fluid. (3) Disorder of diaphragm: Code(s): J98.6 - Disorders of diaphragm Status: Acute Assessment and Plan: Chronically elevated Right diaphragm after lung cancer surgery RULobectomy years ago. Subjective Date/time seen: 09/16/21 15:47 Dr Amezquita and Dr Hood asked me to see this patient again. This is a return or repeat consult note. The reason for the consult is her white out of the right lung. After change in BiPAP settings and Pulmozyme, the RUL is better aerated, see images below. She is lying in bed on her left side, wearing BiPAP 22/12, 70%, with a spontaneous respiratory rate of 22, saturation 92%. Last ABG was 09/06 on these same settings. She is alert, able to nod to questions, cannot speak easily due to wearing the BiPAP. summary of history from admission: She lives in a [place], was not compliant with NPPV use at the long term, using it about twice a week with avg use of 4 hour 25 min, and was on O2. She has COPD, history of right lung cancer with RULobectomy and elevated R hemidiaphragm. 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 She has had previous history of frequent hospitalizations with acute on chronic hypercapnic respiratory failure. She was admitted Aug 10 with low saturation due to not having her usual flow of oxygen at the [place]. She was placed on AVAPS. On Aug 17 she had decreased mentation possibly associated with Pompey, and BC with MSSA treated with Vanco and Cefepime. She improved with increased use of AVAPS, developed acute renal fail
[2021-09-16] MEDS: FUROSEMIDE INJ 100 MG/10 ML VIAL 80 MG IV PUSH (17:51)
[2021-09-16] MEDS: RIVAROXABAN 20 MG TABLET PO (17:54)
[2021-09-16] MEDS: DORNASE ALFA INH SOLN 1 MG/ML 2.5 ML AMP 2.5 MG INHALATION (19:57)
[2021-09-17] VITALS (10 sets, daily range): BP systolic 113–125; BP diastolic 52–61; PULSE 74–92; RESP 16–22; TEMP 35.9–36.5; O2SAT 93–97
[2021-09-17 07:57] LABS: Basophils Percent Auto 0.5 % (0.2-1.2); Eosinophils Absolute Auto 0.2 K/mm3 (0-0.3); Eosinophils Percent Auto 3.7 % (0-4.4); Hematocrit 26.1 % (37.0-47.0); Hemoglobin 7.8 g/dL (12.0-15.0); Immature Granulocyte Absolute 0.04 K/mm3 (0.00-0.031); Lymphocytes Absolute Auto 0.79 K/mm3 (0.9-3.2); Lymphocytes Percent Auto 19.6 % (18.3-44.2); Mean Corpuscular HGB Conc 29.9 g/dl (32-36); Mean Platelet Volume 11.6 fl (7.4-10.4); Monocytes Absolute Auto 0.3 K/mm3 (0.1-0.6); Monocytes Percent Auto 8.2 % (2.6-8.5); Neutrophils Absolute Auto 2.7 K/mm3 (1.3-6.7); Platelet Count Result 166 k/mm3 (150-375); Red Blood Count 2.44 M/mm3 (4.2-5.4); Red Cell Distribution Width 16.1 % (11.5-14.5)
--- NOTE | 2021-09-17 08:07 | P.PNNP_ITS ---
Progress Note: A&P Assessment and Plan (1) KONRAD (acute kidney injury): Code(s): N17.9 - Acute kidney failure, unspecified Status: Acute Assessment and Plan: * she actually comes to see me in the office. * Her baseline GFR is around 50 with a creatinine of 1.1-1.2. * She also has KONRAD. * suspect multifactorial ATN: * COVID-19 infection * bacteremia + UTI * fluctuating hemodynamics * hypoxia * renal ultrasound shows normal kidneys * urine electrolytes are prerenal. The CT done a few days ago showed some but not very extensive pleural effusions. However the whiteout of the lung on the right does not specify whether this is more atelectasis or effusion or both. If large effusion present then possibly this is from volume overload? Intake/output are fairly balance the last few days so I doubt if this is pure volume overload. Echo shows diastolic dysfunction and moderate pulmonary hypertension. * She has no rash or eosinophilia. * Labs are pending today. * Most likely the elevated creatinine is a combination of pre renal azotemia plus response to pulmonary issues. * Dr. Lim saw the patient yesterday. * Will discuss with Dr. Lim (2) Pneumonia due to COVID-19 virus: Code(s): U07.1 - COVID-19; J12.82 - Pneumonia due to coronavirus disease 2018 Status: Acute Assessment and Plan: * continue supportive therapy * s/p remdesivir and steroids * follow respiratory status (3) Acute hypoxemic respiratory failure: Code(s): J96.01 - Acute respiratory failure with hypoxia Status: Acute Assessment and Plan: * at high risk for needing ventilator support * tolerated BiPAP therapy * complicated by known COPD and AMANDA * Nature of the right hemithorax whiteout is under investigation. (4) Sepsis: Code(s): A41.9 - Sepsis, unspecified organism Status: Acute Assessment and Plan: * from pneumonia, COVID, and UTI * completed course of antibiotics (5) Urinary tract infection: Code(s): N39.0 - Urinary tract infection, site not specified Status: Acute Assessment and Plan: * urine culture with Enterococcus * complete course of antibiotics Will continue to follow. Subjective Date/time seen: 09/17/21 08:07 Interval history: patient lying in bed on BiPAP. She is just finishing slumber. She uses a CPAP at home. She ate well yesterday she says. Exam Narrative: WDWN in NAD skin no rash or subQ nodules head ncat lungs clear cor reg no rub or gallop abd BS+ nontender and soft ext 1+ bilateral edema. Objective Data Vital Signs Vital Signs: Vital Signs - 24 hr 09/16/21 09:01 09/16/21 09:04 09/16/21 09:05 Temperature Pulse Rate 80 Respiratory Rate 23 H Blood Pressure Pulse Oximetry 94 94 09/16/21 14:00 09/16/21 19:56 09/16/21 22:00 Temperature 36.2 C L 36.1 C L Pulse Rate 89 54 L Respiratory Rate 16 23 H 16 Blood Pressure 128/68 116/52 L Pulse Oximetry 94 92 98 09/17/21 06:00 Temperature 36.1 C L Pulse Rate 92 Respiratory Rate 21 H Blood Pressure 113/57 L Pulse Oximetry 97 Intake/Output Intake/Output: Intake & Output 09/14/21 09/15/21 09/16/21 09/17/21 23:
--- NOTE | 2021-09-17 08:07 | PM.PNNEP ---
Progress Note: A&P Assessment and Plan (1) KONRAD (acute kidney injury): Code(s): N17.9 - Acute kidney failure, unspecified Status: Acute Assessment and Plan: she actually comes to see me in the office. Her baseline GFR is around 50 with a creatinine of 1.1-1.2. She also has KONRAD. suspect multifactorial ATN: COVID-19 infection bacteremia + UTI fluctuating hemodynamics hypoxia renal ultrasound shows normal kidneys urine electrolytes are prerenal. The CT done a few days ago showed some but not very extensive pleural effusions. However the whiteout of the lung on the right does not specify whether this is more atelectasis or effusion or both. If large effusion present then possibly this is from volume overload? Intake/output are fairly balance the last few days so I doubt if this is pure volume overload. Echo shows diastolic dysfunction and moderate pulmonary hypertension. She has no rash or eosinophilia. Labs are pending today. Most likely the elevated creatinine is a combination of pre renal azotemia plus response to pulmonary issues. Dr. Lim saw the patient yesterday. Will discuss with Dr. Lim (2) Pneumonia due to COVID-19 virus: Code(s): U07.1 - COVID-19; J12.82 - Pneumonia due to coronavirus disease 2019 Status: Acute Assessment and Plan: continue supportive therapy s/p remdesivir and steroids follow respiratory status (3) Acute hypoxemic respiratory failure: Code(s): J96.01 - Acute respiratory failure with hypoxia Status: Acute Assessment and Plan: at high risk for needing ventilator support tolerated BiPAP therapy complicated by known COPD and AMANDA Nature of the right hemithorax whiteout is under investigation. (4) Sepsis: Code(s): A41.9 - Sepsis, unspecified organism Status: Acute Assessment and Plan: from pneumonia, COVID, and UTI completed course of antibiotics (5) Urinary tract infection: Code(s): N39.0 - Urinary tract infection, site not specified Status: Acute Assessment and Plan: urine culture with Enterococcus complete course of antibiotics Will continue to follow. Subjective Date/time seen: 09/17/21 08:07 Interval history: patient lying in bed on BiPAP. She is just finishing slumber. She uses a CPAP at home. She ate well yesterday she says. Exam Narrative: WDWN in NAD skin no rash or subQ nodules head ncat lungs clear cor reg no rub or gallop abd BS+ nontender and soft ext 1+ bilateral edema. Objective Data Vital Signs Vital Signs: Vital Signs - 24 hr 09/16/21 09:01 09/16/21 09:04 09/16/21 09:05 Temperature Pulse Rate 80 Respiratory Rate 23 H Blood Pressure Pulse Oximetry 94 94 09/16/21 14:00 09/16/21 19:56 09/16/21 22:00 Temperature 36.2 C L 36.1 C L Pulse Rate 89 54 L Respiratory Rate 16 23 H 16 Blood Pressure 128/68 116/52 L Pulse Oximetry 94 92 98 09/17/21 06:00 Temperature 36.1 C L Pulse Rate 92 Respiratory Rate 21 H Blood Pressure 113/57 L Pulse Oximetry 97 Intake/Output Intake/Output: Intake & Output 09/14/21 09/15/21 09/16/21 09/17/21 23:59 23:59 23:59 23:59 Intake Total 1390 1180 960 200 Output Total 434 912 0195 500 Balance 940 430 -40 -300 Meds/Results Medications: Active Medications Generic Name Dose Route Start Last Admin Trade Name Freq PRN Reason Stop Dose Admin Acetaminophen 500 mg 08/10/21 07:46 09/13/21 09:24 Acetaminophen 500 Mg Tablet PO 10/09/21 07:45 500 mg Q6H PRN Administration Pain (1-3) Or Fever Albuterol 1 puff 08/10/21 07:46 Albuterol Sulfate (*Sp) Aerosol 1 Puff INHALATION 10/09/21 07:45 Q4-6H PRN Shortness Of Breath Dicyclomine HCl 20 mg 08/10/21 09:00 09/16/21 17:54 Dicyclomine Hcl 10 Mg Capsule PO 10/09/21 08:59 20 mg BID GUCCI Administration Dornase Bakari 2.5 mg 09/16/21 20:00 09/16/21 19:57 Dornase Al
[2021-09-17 08:14] LABS: Alanine Aminotransferase 7 U/L (4-35); Alkaline Phosphatase 80 U/L (38-126); Aspartate Amino Transferase 16 U/L (14-36); Bilirubin,Total 0.5 mg/dL (0.2-1.3); Blood Urea Nitrogen 58 mg/dL (7-17); Carbon Dioxide > 40 mmol/L (22-30); Chloride 94 mmol/L (98-107); Estimated CRCL calculation 19 ml/min; Estimated Glomerular Filt Rate 14; Glucose 93 mg/dL (65-110); Potassium 3.3 mmol/L (3.4-5.0); Sodium 140 mmol/L (137-145)
[2021-09-17] MEDS: CHOLECALCIFEROL 1,000 UNITS TABLET 1000 UNITS PO (08:48)
[2021-09-17] MEDS: DICYCLOMINE HCL 10 MG CAPSULE 20 MG PO ×2 (08:48→18:09)
[2021-09-17] MEDS: METOPROLOL TARTRATE 50 MG TAB PO (08:48)
[2021-09-17] MEDS: SERTRALINE HCL 25 MG TABLET PO (08:48)
[2021-09-17] MEDS: MAGNESIUM OXIDE 400 MG TABLET PO (08:49)
[2021-09-17] MEDS: FUROSEMIDE INJ 100 MG/10 ML VIAL 80 MG IV PUSH ×2 (08:49→18:09)
[2021-09-17] MEDS: LIDOCAINE 5% PATCH 1 PATCH TRANSDERM (08:49)
[2021-09-17] MEDS: PENTOXIFYLLINE 400 MG TABCR PO ×2 (08:49→18:10)
[2021-09-17] MEDS: PANTOPRAZOLE 40 MG TABLET PO ×2 (08:49→20:42)
[2021-09-17] MEDS: PREGABALIN (*CRX) 50 MG CAPSULE PO ×2 (08:53→20:42)
[2021-09-17] MEDS: TOLNAFTATE 1% POWDER 45 GM BTL 1 APPLIC TOPICAL ×2 (08:53→20:43)
[2021-09-17] MEDS: FLUTICASONE/UMECLIDIN/VILANTER 100-62.5-25 MCG ELLIPTA 1 PUFF INHALATION (09:02)
[2021-09-17] MEDS: DORNASE ALFA INH SOLN 1 MG/ML 2.5 ML AMP 2.5 MG INHALATION ×3 (09:03→22:12)
[2021-09-17 09:33] LABS: Hypochromasia 1+ (NORMAL); Platelet Estimate Adequate (Adequate)
[2021-09-17 09:34] LABS: Anisocytosis 1+ (NORMAL); Ovalocytes 1+ (NORMAL)
[2021-09-17 09:40] LABS: Phosphorus 3.9 mg/dL (2.5-4.5)
[2021-09-17] MEDS: FERROUS SULFATE 324 MG TABLET PO ×2 (14:06→18:09)
--- NOTE | 2021-09-17 16:34 | PM.IMPN ---
Progress Note: A&P Assessment and Plan (1) COVID-19: Code(s): U07.1 - COVID-19 Status: Acute Assessment and Plan: Patient tested positive on rapid COVID test confirmed by PCR on August 23, 2021. Patient was appropriately started on remdesivir and dexamethasone. Patient tested positive for COVID-19 on 08/23 and started on remdesivir, dexamethasone on 05/28 - Continue Remdesivir for 10 days completed course -CPAP continue home treatment. - Dexamethasone 6 mg IV for 05/28 days completed course - Continuous pulse oximetry - Prone positioning as tolerated. -patient still have high oxygen requirement -CT scan shows diffuse pneumonia consistent with COVID possible right-sided effusion present with congestive changes diuresis was attempted but limited with worsening renal function. Diuresis has been started back with worsening opacification of right hemithorax continue to monitor renal function with ongoing diuresis. Will also order ultrasound chest repeat again to check for right pleural effusion if present to be tapped. (2) Septicemia: Code(s): A41.9 - Sepsis, unspecified organism Status: Acute Assessment and Plan: Patient had fever, hypotension worsening oxygenation and KONRAD consistent with sepsis. She may have pneumonia and she is also being worked up for a pyelonephritis 08/17/2022 Patient grew out methicillin sensitive Staph aureus in 2 blood cultures from 08 17 and has been treated with vancomycin and cefepime. Her mental status has improved. Repeat Blood cultures without growth. Cefepime and vancomycin are stopped on 08/26/2021. Patient started on cefazolin 1 G IV q 8hrs (08/26/2021). First negative culture was 1 11/07 Completed 2 weeks course of IV antibiotics Blood culture was repeated on 09/12/2021 Patient is interested to go to rehab pending improvement in oxygenation (3) Altered mental status: Code(s): R41.82 - Altered mental status, unspecified Status: Acute Assessment and Plan: Altered mental status; patient is more alert (4) KONRAD (acute kidney injury): Code(s): N17.9 - Acute kidney failure, unspecified Status: Acute Assessment and Plan: Resolved acute nonoliguric acute kidney injury creatinine stable at 0.8. It is felt to be an acute kidney injury related to ATN. UA noted. 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 However she seems she had more effusion developed over the past few days. Will check with Renal we can start diuresis gently and/or presents to be attempted however thoracentesis is planned few days back was aborted due to lack of any pleural fluid at that time. Reconsulted Pulmonary (5) Acute and chronic respiratory failure with hypercapnia: Code(s): J96.22 - Acute and chronic respiratory failure with hypercapnia Status: Chronic Assessment and Plan: Secondary to COVID-19 pneumonia keep saturation over 90 (6) COPD exacerbation: Code(s): J44.1 - Chronic obstructive pulmonary disease with (acute) exacerbation Status: Acute Assessment and Plan: Appreciate pulmonary input. Continue home medications. Continue inhaler treatment (7) Hypokalemia: Code(s): E87.6 - Hypokalemia Status: Acute Assessment and Plan: Replaced added Aldactone (8) UTI (urinary tract infection): Code(s): N39.0 - Urinary tract infection, site not specified Status: Acute Assessment and Plan: UA showing 2+ blood, 11-20 red cells and 16-20 white cells. Negative leukocyte esterase and negative nitrates. Urine culture growing Enterococcus species 100 K that is sensitive to ampicillin. Her Khan catheter has been exchanged already. (9) Unresp
--- NOTE | 2021-09-17 17:04 | PM.PNPUL ---
Progress Note: A&P Assessment and Plan (1) Acute and chronic respiratory failure with hypercapnia: Onset Date: ~07/2021 Code(s): J96.22 - Acute and chronic respiratory failure with hypercapnia Status: Chronic Assessment and Plan: She has baseline CO2 50-60s, admitted Aug 10, 2021 with sepsis due to pneumonia, then developed COVID August 23 with treatment including remdesivir & dexamethasone. Antibiotics early in the admission included Vancomycin until Aug 20 and Cefepime until 08/17, changed to Ancef until Aug 26, remdesivir until Aug 26. She also developed urinary tract infection, alteration in mental status, gradual improvement in her pCO2 wearing BiPAP at times alternating with AVAPS. Her oxygen requirement went up September 10 and is now at 70%. Her last CT of everything chest/abd/pelvis Sep 12 = Extensive bilateral airspace disease, compatible with pneumonia; Small pleural effusions, Cholelithiasis, Small hyperdense left renal lesions, not well visualized due to streak artifact. Correlation with ultrasound recommended. She has not been able to have a thoracentesis on the right due to absence of fluid on ultrasound on Sep 01, so the CT chest may indicate more fluid that she really has. The right hemidiaphragm is elevated from prior surgery. It is not clear if she has an active new infection or if her infiltrates are residual from COVID, or if these represent pulmonary edema due to her CHF. She has not had antibiotics for 3 weeks. Will check urine antigens for pneumococcus, Legionella, send viral multiplex; change settings on BiPAP, check ABG; consider code change. I am not hopeful that she has a reasonable chance to improve and be discharged with continuous stay of 37 days, and has not been able to get to a stable baseline during that time under constant care by multiple doctors. She is going back on BiPAP 20/12 with 70% O2, ABG in am, and consideration for a thoracentesis on the right. Last attempt for this was not completed as she did not have fluid on ultrasound. Her GI blood loss is contributing to her shortness of breath and she is close to needing a transfusion. (2) Pleural effusion: Code(s): J90 - Pleural effusion, not elsewhere classified Status: Acute Assessment and Plan: Right side seems to have increased effusion, however this has not been enough to have a thoracentesis. On the chest CT Sep 12, there was little fluid. (3) Disorder of diaphragm: Code(s): J98.6 - Disorders of diaphragm Status: Acute Assessment and Plan: Chronically elevated Right diaphragm after lung cancer surgery RULobectomy 15 years ago. (4) Chronic anemia: Code(s): D64.9 - Anemia, unspecified Status: Acute Assessment and Plan: She has constant dark liquid stool that appears black, or at least dark liquid which may be black due to oral iron replacement. H/H is trending downward. Dr Tahir Marie saw her Aug 28 for GI consult; noted that she had a GIB 2020 due to ulcer (done at [place]), then evaluated by Dr Matt on 08/2020 because anemia and FOBT, EGD showed erosive gastritis without active bleeding, also had large polyps in right colon unable to remove endoscopically. Subjective Date/time seen: 09/17/21 17:05 She is lying in bed on her RIGHT side, not wearing BiPAP, just nasal cannula O2 with saturation 79%, in distress with frequent blood liquid stools. She is on iron which is part of what is making her stools so dark. She is very short of breath. She always prefers her right side which is the worse one on CXR. She says she cannot breathe when she is on her left juan. She is on a V600 model which cannot deliver AVAPS settings. .
[2021-09-17] MEDS: SPIRONOLACTONE 25 MG TABLET PO (18:08)
[2021-09-17] MEDS: RIVAROXABAN 15 MG TABLET PO (18:11)
[2021-09-18] VITALS (10 sets, daily range): BP systolic 110–126; BP diastolic 42–81; PULSE 68–91; RESP 20–22; TEMP 36.2–36.9; O2SAT 91–97
[2021-09-18 04:16] LABS: Osmolality, Urine 385 mOsm/kg (50-1200)
[2021-09-18] MEDS: LEVOTHYROXINE SODIUM 125 MCG TABLET PO (05:18)
[2021-09-18 06:07] LABS: Alveolar/Arterial O2 Gradient 301.7 mmHg; Base Excess ABG 14.1 mEq/l (+/-2.0); Fractional Inspired Oxygen 60 %; HCO3 ABG 40.2 mEq/l (22.0-26.0); Oxygen Content ABG 10.5 %vol (16.0-22.0); Oxyhemoglobin 88.6 % THb (90.0-100.0); PO2 ABG 58.1 mmHg (80.0-100.0); PO2 FiO2 Ratio Arterial Blood 0.97 %; Total Hemoglobin 8.4 g/dL (12.0-18.0); pH ABG 7.431 (7.350-7.450)
[2021-09-18 06:09] LABS: Device BIPAP; Modified Allen's Test Pass; PCO2 ABG 61.8 mmHg (35.0-45.0); Site Drawn RIGHT RADIAL
[2021-09-18 06:10] LABS: Expiratory Pressure 12 cmH2O; Inspiratory Pressure 22 cmH2O
--- NOTE | 2021-09-18 08:02 | P.PNNP_ITS ---
Progress Note: A&P Assessment and Plan (1) KONRAD (acute kidney injury): Code(s): N17.9 - Acute kidney failure, unspecified Status: Acute Assessment and Plan: * she actually comes to see me in the office. * Her baseline GFR is around 50 with a creatinine of 1.1-1.2. * She also has KONRAD. * suspect multifactorial ATN: * COVID-19 infection * bacteremia + UTI * fluctuating hemodynamics * hypoxia * renal ultrasound shows normal kidneys * urine electrolytes are prerenal. * She has no rash or eosinophilia. * Labs are pending today. * Most likely the elevated creatinine is a combination of pre renal azotemia plus response to pulmonary issues. * Dr. Lim saw the patient yesterday. * Patient's creatinine was up to 3.2 yesterday. Today's is pending. She has been on diuretics. Etiology of her pulmonary issues is being worked out by Dr. Lim and Dr. Tellez. Because of the rising creatinine and not much improvement in the pulmonary situation, will hold off on the diuretics for now. (2) Pneumonia due to COVID-19 virus: Code(s): U07.1 - COVID-19; J12.82 - Pneumonia due to coronavirus disease 2018 Status: Acute Assessment and Plan: * continue supportive therapy * s/p remdesivir and steroids * follow respiratory status (3) Acute hypoxemic respiratory failure: Code(s): J96.01 - Acute respiratory failure with hypoxia Status: Acute Assessment and Plan: * at high risk for needing ventilator support * tolerated BiPAP therapy * complicated by known COPD and AMANDA * Nature of the right hemithorax whiteout is under investigation. * Chest x-ray is better on the right (4) Sepsis: Code(s): A41.9 - Sepsis, unspecified organism Status: Acute Assessment and Plan: * from pneumonia, COVID, and UTI * completed course of antibiotics (5) Urinary tract infection: Code(s): N39.0 - Urinary tract infection, site not specified Status: Acute Assessment and Plan: * urine culture with Enterococcus * complete course of antibiotics Will continue to follow. Subjective Date/time seen: 09/18/21 08:02 Interval history: patient lying in bed on BiPAP. She is just finishing slumber. She uses a CPAP at home. She denies shortness of breath. Exam Narrative: WDWN in NAD skin no rash or subQ nodules head ncat lungs decreased breath sounds at the bases, mildly coarse above that. cor reg no rub or gallop abd BS+ nontender and soft ext 1+ bilateral edema. Objective Data Vital Signs Vital Signs: Vital Signs - 24 hr 09/17/21 08:48 09/17/21 18:47 09/17/21 20:00 Temperature 35.9 C L 36.5 C Pulse Rate 90 92 82 Respiratory Rate 16 20 Blood Pressure 114/52 L 125/54 L Pulse Oximetry 96 96 09/17/21 22:00 09/17/21 22:13 09/17/21 22:14 Temperature 36.3 C L Pulse Rate 74 87 88 Respiratory Rate 20 22 H 22 H Blood Pressure 119/61 Pulse Oximetry 95 09/17/21 22:26 09/17/21 22:27 09/18/21 00:31 Temperature Pulse Rate 83 81 85 Respiratory Rate 20 22 H 20 Blood Pressure Pulse Oximetry 93 93 09/18/21 00:35 09/18/21 05:20 09/18/21 06:15 Temperature 36.9 C Pulse Rate 72 82 Respiratory Rate
--- NOTE | 2021-09-18 08:02 | PM.PNNEP ---
Progress Note: A&P Assessment and Plan (1) KONRAD (acute kidney injury): Code(s): N17.9 - Acute kidney failure, unspecified Status: Acute Assessment and Plan: she actually comes to see me in the office. Her baseline GFR is around 50 with a creatinine of 1.1-1.2. She also has KONRAD. suspect multifactorial ATN: COVID-19 infection bacteremia + UTI fluctuating hemodynamics hypoxia renal ultrasound shows normal kidneys urine electrolytes are prerenal. She has no rash or eosinophilia. Labs are pending today. Most likely the elevated creatinine is a combination of pre renal azotemia plus response to pulmonary issues. Dr. Lim saw the patient yesterday. Patient's creatinine was up to 3.2 yesterday. Today's is pending. She has been on diuretics. Etiology of her pulmonary issues is being worked out by Dr. Lim and Dr. Tellez. Because of the rising creatinine and not much improvement in the pulmonary situation, will hold off on the diuretics for now. (2) Pneumonia due to COVID-19 virus: Code(s): U07.1 - COVID-19; J12.82 - Pneumonia due to coronavirus disease 2018 Status: Acute Assessment and Plan: continue supportive therapy s/p remdesivir and steroids follow respiratory status (3) Acute hypoxemic respiratory failure: Code(s): J96.01 - Acute respiratory failure with hypoxia Status: Acute Assessment and Plan: at high risk for needing ventilator support tolerated BiPAP therapy complicated by known COPD and AMANDA Nature of the right hemithorax whiteout is under investigation. Chest x-ray is better on the right (4) Sepsis: Code(s): A41.9 - Sepsis, unspecified organism Status: Acute Assessment and Plan: from pneumonia, COVID, and UTI completed course of antibiotics (5) Urinary tract infection: Code(s): N39.0 - Urinary tract infection, site not specified Status: Acute Assessment and Plan: urine culture with Enterococcus complete course of antibiotics Will continue to follow. Subjective Date/time seen: 09/18/21 08:02 Interval history: patient lying in bed on BiPAP. She is just finishing slumber. She uses a CPAP at home. She denies shortness of breath. Exam Narrative: WDWN in NAD skin no rash or subQ nodules head ncat lungs decreased breath sounds at the bases, mildly coarse above that. cor reg no rub or gallop abd BS+ nontender and soft ext 1+ bilateral edema. Objective Data Vital Signs Vital Signs: Vital Signs - 24 hr 09/17/21 08:48 09/17/21 18:47 09/17/21 20:00 Temperature 35.9 C L 36.5 C Pulse Rate 90 92 82 Respiratory Rate 16 20 Blood Pressure 114/52 L 125/54 L Pulse Oximetry 96 96 09/17/21 22:00 09/17/21 22:13 09/17/21 22:14 Temperature 36.3 C L Pulse Rate 74 87 88 Respiratory Rate 20 22 H 22 H Blood Pressure 119/61 Pulse Oximetry 95 09/17/21 22:26 09/17/21 22:27 09/18/21 00:31 Temperature Pulse Rate 83 81 85 Respiratory Rate 20 22 H 20 Blood Pressure Pulse Oximetry 93 93 09/18/21 00:35 09/18/21 05:20 09/18/21 06:15 Temperature 36.9 C Pulse Rate 72 82 Respiratory Rate 20 22 H Blood Pressure 126/42 L Pulse Oximetry 93 97 92 Intake/Output Intake/Output: Intake & Output 09/15/21 09/16/21 09/17/21 09/18/21 23:59 23:59 23:59 23:59 Intake Total 1180 960 320 350 Output Total 750 1000 700 600 Balance 430 40 380 -250 Meds/Results Medications: Active Medications Generic Name Dose Route Start Last Admin Trade Name Freq PRN Reason Stop Dose Admin Acetaminophen 500 mg 08/10/21 07:46 09/13/21 09:24 Acetaminophen 500 Mg Tablet PO 10/09/21 07:45 500 mg Q6H PRN Administration Pain (1-3) Or Fever Albuterol 1 puff 08/10/21 07:46 Albuterol Sulfate (*Sp) Aerosol 1 Puff INHALATION 10/09/21 07:45 Q4-6H PRN Shortness Of Breath Bisacodyl 5 mg 09/18/21 09:00 Bisacodyl 5 Mg Ta
[2021-09-18 08:03] LABS: Basophils Percent Auto 0.8 % (0.2-1.2); Eosinophils Absolute Auto 0.1 K/mm3 (0-0.3); Eosinophils Percent Auto 3.6 % (0-4.4); Hematocrit 24.5 % (37.0-47.0); Hemoglobin 7.6 g/dL (12.0-15.0); Immature Granulocyte Absolute 0.03 K/mm3 (0.00-0.031); Immature Granulocyte Percent A 0.8 % (0-0.5); Lymphocytes Absolute Auto 0.73 K/mm3 (0.9-3.2); Lymphocytes Percent Auto 18.7 % (18.3-44.2); Mean Corpuscular Hemoglobin 31.8 pg (26-34); Mean Corpuscular Volume 102.5 fl (80-100); Mean Platelet Volume 11.1 fl (7.4-10.4); Monocytes Absolute Auto 0.3 K/mm3 (0.1-0.6); Monocytes Percent Auto 8.7 % (2.6-8.5); Neutrophils Absolute Auto 2.6 K/mm3 (1.3-6.7); Neutrophils Percent Auto 67.4 % (45.5-73.1); Platelet Count Result 168 k/mm3 (150-375); Red Blood Count 2.39 M/mm3 (4.2-5.4); Red Cell Distribution Width 16.3 % (11.5-14.5); White Blood Count 3.9 K/mm3 (4.5-10.0)
[2021-09-18 08:08] LABS: Alanine Aminotransferase 7 U/L (4-35); Alkaline Phosphatase 85 U/L (38-126); Aspartate Amino Transferase 14 U/L (14-36); Bilirubin,Total 0.6 mg/dL (0.2-1.3); Blood Urea Nitrogen 59 mg/dL (7-17); Carbon Dioxide > 40 mmol/L (22-30); Chloride 95 mmol/L (98-107); Estimated CRCL calculation 18 ml/min; Estimated Glomerular Filt Rate 13; Glucose 89 mg/dL (65-110); Potassium 3.3 mmol/L (3.4-5.0); Sodium 139 mmol/L (137-145)
[2021-09-18] MEDS: DORNASE ALFA INH SOLN 1 MG/ML 2.5 ML AMP 2.5 MG INHALATION (08:33)
[2021-09-18] MEDS: FLUTICASONE/UMECLIDIN/VILANTER 100-62.5-25 MCG ELLIPTA 1 PUFF INHALATION (08:33)
[2021-09-18] MEDS: LIDOCAINE 5% PATCH 1 PATCH TRANSDERM (09:48)
[2021-09-18] MEDS: METOPROLOL TARTRATE 50 MG TAB PO (09:49)
[2021-09-18] MEDS: MAGNESIUM OXIDE 400 MG TABLET PO (09:49)
[2021-09-18] MEDS: PENTOXIFYLLINE 400 MG TABCR PO ×2 (09:49→17:27)
[2021-09-18] MEDS: DICYCLOMINE HCL 10 MG CAPSULE 20 MG PO ×2 (09:49→17:27)
[2021-09-18] MEDS: SPIRONOLACTONE 25 MG TABLET PO (09:50)
[2021-09-18] MEDS: BISACODYL 5 MG TABLET EC PO (09:50)
[2021-09-18] MEDS: PANTOPRAZOLE 40 MG TABLET PO ×2 (09:50→20:29)
[2021-09-18] MEDS: CHOLECALCIFEROL 1,000 UNITS TABLET 1000 UNITS PO (09:50)
[2021-09-18] MEDS: FERROUS SULFATE 324 MG TABLET PO ×2 (09:50→17:27)
[2021-09-18] MEDS: SERTRALINE HCL 25 MG TABLET PO (09:50)
[2021-09-18] MEDS: TOLNAFTATE 1% POWDER 45 GM BTL 1 APPLIC TOPICAL ×2 (09:51→20:31)
--- NOTE | 2021-09-18 13:39 | PC.NURSE ---
Pt sitting up for lunch per bed. o2 saturations maintained at 94% on hi-jerry oxygen at 15L. Pt offers no complaints. Will monitor.
--- NOTE | 2021-09-18 13:55 | PM.PNPUL ---
Progress Note: A&P Assessment and Plan (1) Acute and chronic respiratory failure with hypercapnia: Onset Date: ~07/2021 Code(s): J96.22 - Acute and chronic respiratory failure with hypercapnia Status: Chronic Assessment and Plan: 09/17 She has baseline CO2 50-60s, admitted Aug 10, 2021 with sepsis due to pneumonia, then developed COVID August 23 with treatment including remdesivir & dexamethasone. Antibiotics early in the admission included Vancomycin until Aug 20 and Cefepime until 08/17, changed to Ancef until Aug 26, remdesivir until Aug 26. She also developed urinary tract infection, alteration in mental status, gradual improvement in her pCO2 wearing BiPAP at times alternating with AVAPS. Her oxygen requirement went up September 10 and is now at 70%. Her last CT of everything chest/abd/pelvis Sep 12 = Extensive bilateral airspace disease, compatible with pneumonia; Small pleural effusions, Cholelithiasis, Small hyperdense left renal lesions, not well visualized due to streak artifact. Correlation with ultrasound recommended. She has not been able to have a thoracentesis on the right due to absence of fluid on ultrasound on Sep 01, so the CT chest may indicate more fluid that she really has. The right hemidiaphragm is elevated from prior surgery. It is not clear if she has an active new infection or if her infiltrates are residual from COVID, or if these represent pulmonary edema due to her CHF. She has not had antibiotics for 3 weeks. Will check urine antigens for pneumococcus, Legionella, send viral multiplex; change settings on BiPAP, check ABG; consider code change. I am not hopeful that she has a reasonable chance to improve and be discharged with continuous stay of 37 days, and has not been able to get to a stable baseline during that time under constant care by multiple doctors. She is going back on BiPAP 20/12 with 70% O2, ABG in am, and consideration for a thoracentesis on the right. Last attempt for this was not completed as she did not have fluid on ultrasound. Her GI blood loss is contributing to her shortness of breath and she is close to needing a transfusion. 09/18 most recently her complete opacification of the right hemidiaphragm with shift of the trachea to the right suggests that she had a mucus plug. She remains debilitated with a poor cough and this may be a recurring issue. This improved with BiPAP, Pulmozyme 2.5 Q 12 and continuation of her trelegy. I will order CT scan of the chest to better define her pleural effusions, pulmonary infiltrates which may be related to fluid overload, pneumonia and or post COVID. Will wean her FiO2 as tolerated to maintain saturations greater than 90% during the day and try to maintain her off BiPAP as tolerated. Will try to sit her up in bed and continue aggressive physical therapy as tolerated. Agree with holding her diuretics as she has acute kidney injury. She is being followed by the renal service. Subjective Date/time seen: 09/18/21 13:55 Interval history: 08/16/21 15:39 Patient tells me that she is breathing back to her normal. Patient is on 4 L nasal cannula saturations 95%. White blood cell count is 4.5. Patient wore noninvasive ventilator with the AVAPS mode last night unfortunately overnight oximetry and ABG were not performed. The patient told me that maybe she was wearing her BiPAP at home 2 times a week. I have obtained a download from 07/16 through 08/14 and her compliance a greater than 4 hours is 2 of 30 days or 7%. Her average usage on days used is 4 hours and 25 minutes. She has stat to an IPAP of 20 and EPAP of 15. Her AHI is 20.2, her leak is 68.6 median, 95th percentile leak 108, maximum leak 120. This demonstrates poor compliance with a high AHI And a high leak while on 20/15. patient is not tolerating the BiPAP and given her blood gas I will initiate noninvasive ventilation with AVAPS mode. 08/17 Patient with altered mental sta
--- NOTE | 2021-09-18 15:27 | PCNFU ---
Nutrition Follow-Up Complete: Inadequate oral intake related to decreased appetite as evidenced by average intake of 10% and pt. refusing several meals. Goal: Patient to meet estimated nutritional needs. Pt is slowly progressing towards goal Pt current nutrition is regular diet and dietary supplements Last recorded weight is 118.2 kg, stable Bowel Motility: +BM 09/17 reported Labs Reviewed: hgb 7.6, hct 24.5, alb 3.0, Cl 95, K 3.3, GFR 13, BUN 59, Cr 3.4, CO2 >40 Meds Noted: dulcolax, bentyl, pulmozyme, ferrous sulfate, trelegy, synthroid, lidoderm, mag-ox, lopressor, protonix, trental, zoloft, aldactone, vitamin D Skin: bilateral skin fold buttock maceration, bilateral skin fold groin maceration Additional Notes: Unable to visit with pt due to following covid precautions. Current nutrition is a regular diet and dietary supplement of Ensure Clear TID providing an additional 240kcal and 8g of protein. Reported intake is 0% x2, 25%, 20%, and 5%. Pt remains BiPAP dependent. Spoke to nursing via phone who confirms poor PO intake and is unsure if pt is drinking dietary supplement. RDN encourage nursing to continue to encourage intake of regular diet and dietary supplements. Nursing agreed. Agree with diet orders at this time. Will continue to follow. Monitor pt. labs, medications, weight and oral intake every 3 days.
--- NOTE | 2021-09-18 16:29 | PM.IMPN ---
Progress Note: A&P Assessment and Plan (1) COVID-19: Code(s): U07.1 - COVID-19 Status: Acute Assessment and Plan: Patient tested positive on rapid COVID test confirmed by PCR on August 23, 2021. Patient was appropriately started on remdesivir and dexamethasone. Patient tested positive for COVID-19 on 08/23 and started on remdesivir, dexamethasone on 05/28 - Continue Remdesivir for 10 days completed course -CPAP continue home treatment. - Dexamethasone 6 mg IV for 05/28 days completed course - Continuous pulse oximetry - Prone positioning as tolerated. -patient still have high oxygen requirement -CT scan shows diffuse pneumonia consistent with COVID possible right-sided effusion present with congestive changes diuresis was attempted but limited with worsening renal function. Diuresis has been started back with worsening opacification of right hemithorax continue to monitor renal function with ongoing diuresis. - Pt had repeat ct chest awaiting full report. (2) Septicemia: Code(s): A41.9 - Sepsis, unspecified organism Status: Acute Assessment and Plan: Patient had fever, hypotension worsening oxygenation and KONRAD consistent with sepsis. She may have pneumonia and she is also being worked up for a pyelonephritis 08/17/2022 Patient grew out methicillin sensitive Staph aureus in 2 blood cultures from 08 17 and has been treated with vancomycin and cefepime. Her mental status has improved. Repeat Blood cultures without growth. Cefepime and vancomycin are stopped on 08/26/2021. Patient started on cefazolin 1 G IV q 8hrs (08/26/2021). First negative culture was 11/07 Completed 2 weeks course of IV antibiotics Blood culture was repeated on 09/12/2021 Patient is interested to go to rehab pending improvement in oxygenation (3) Altered mental status: Code(s): R41.82 - Altered mental status, unspecified Status: Resolved Assessment and Plan: Patient is more alert (4) KONRAD (acute kidney injury): Code(s): N17.9 - Acute kidney failure, unspecified Status: Acute Assessment and Plan: Resolved acute nonoliguric acute kidney injury creatinine stable at 0.8. It is felt to be an acute kidney injury related to ATN. UA noted. Lasix and Entresto was discontinued final nephrology recommendation (5) Acute and chronic respiratory failure with hypercapnia: Onset Date: ~07/2021 Code(s): J96.22 - Acute and chronic respiratory failure with hypercapnia Status: Chronic Assessment and Plan: Secondary to COVID-19 pneumonia keep saturation over 90 (6) COPD exacerbation: Code(s): J44.1 - Chronic obstructive pulmonary disease with (acute) exacerbation Status: Acute Assessment and Plan: Appreciate pulmonary input. Continue home medications. Continue inhaler treatment (7) Hypokalemia: Code(s): E87.6 - Hypokalemia Status: Acute Assessment and Plan: Replaced added Aldactone (8) UTI (urinary tract infection): Code(s): N39.0 - Urinary tract infection, site not specified Status: Acute Assessment and Plan: UA showing 2+ blood, 11-20 red cells and 16-20 white cells. Negative leukocyte esterase and negative nitrates. Urine culture growing Enterococcus species 100 K that is sensitive to ampicillin. Her Khan catheter has been exchanged already. (9) Unresponsive: Code(s): R41.89 - Other symptoms and signs involving cognitive functions and awareness Status: Acute Assessment and Plan: Most likely related to severe sepsis resolved (10) Atrial fibrillation: Qualifiers: Atrial fibrillation type: unspecified Qualified Code(s): I48.91 - Unspecified atrial fibrillation Code(s): I48.91 - Unspecified atrial fibrillation Status: Chronic Assessment and Plan: Patient with chronic atrial fibrillation. Heart rate was well controlle
[2021-09-18] MEDS: ACETAMINOPHEN 500 MG TABLET PO (22:04)
[2021-09-19] VITALS (15 sets, daily range): BP systolic 124–158; BP diastolic 62–85; PULSE 80–100; RESP 20–25; TEMP 36–36.7; O2SAT 81–100
[2021-09-19] MEDS: LEVOTHYROXINE SODIUM 125 MCG TABLET PO (05:08)
--- NOTE | 2021-09-19 07:04 | ECHO_ITS ---
Patient Info Name: Valorie Harris Age: 76 years : 1945 Gender: Female Ht: 66 in Wt: 258 lbs BSA: 2.39 m2 HR: 90 bpm BP: 132 / 79 mmHg Exam Date: 09/19/2021 9:26 AM Exam Location: [facility] Patient Status: Inpatient Admit Date: 08/11/2021 Staff Ordering Physician: Linden Tellez MD Fixture Relamper: Stephen Freeman RDCS, RT Attending Provider: Gerda Harris MD Referring Physician: Geoff HYMAN; Exam Type: CA echo dop color flow w con Study Info Indications I50.9 - Heart failure, unspecified Complete two-dimensional, color flow and Doppler transthoracic echocardiogram is performed with contrast to opacify the left ventricle and to improve the deliniation of the left ventricle endocardial borders. Summary 1. Mild LVH, LV cavity size at upper limits of normal; low normal LV systolic function, EF 50-55%. Diastolic dysfunction is indeterminate. Moderate RV enlargement with hypokinesis. Mild biatrial enlargement. Mild mitral annular calcification, mild MR. Mild aortic valve sclerosis with mild stenosis, mild aortic regurgitation. Mild tricuspid regurgitation, severe pulmonary hypertension, RVSP 80 mmHg. Atrial fibrillation. Left Ventricle Left ventricular chamber dimension is mildly enlarged. Left ventricular systolic function is normal, estimated at 50-55%. There is mildly increased left ventricular wall thickness. The left ventricular diastolic function is indeterminate. Right Ventricle Right ventricular chamber dimension is moderately enlarged. Right ventricular systolic function is reduced. Left Atria Left atrial chamber dimension is mildly enlarged. Right Atria Right atrial chamber dimension is mildly enlarged. Aortic Valve There is mild aortic valve sclerosis. There is mild aortic valve stenosis with a peak velocity of 163.68 cm/s, mean gradient of 5 mmHg, and aortic valve area of 1.63 cm2. There is mild aortic valve regurgitation. Pulmonic Valve The pulmonic valve is normal. There is mild pulmonic regurgitation. Mitral Valve There is mild mitral valve regurgitation. The mitral valve annulus is mildly calcified. Tricuspid Valve Severe pulmonary hypertension, estimated pulmonary arterial systolic pressure is 80 mmHg. Pericardium/Pleural The pericardium appears normal. Inferior Vena Cava Dilated inferior vena cava with >50% collapse upon inspiration consistent with elevated right atrial pressure, 10 mmHg. Aorta The aortic root size at the sinus of Valsalva is normal. Left Ventricular Outflow Tract Name Value Normal LVOT 2D LVOT Diameter 2.04 cm LVOT Doppler LVOT Peak Gradient 3 mmHg LVOT Mean Gradient 1 mmHg LVOT VTI 14.47 cm LVOT VTI/AV VTI Ratio 0.50 LVOT Stroke Volume 47.31 ml LVOT CO 5.05 l/min LVOT CI 2.11 L/min/m2 Mitral Valve Name Value Normal --
[2021-09-19 07:16] LABS: Albumin Level 2.9 g/dL (3.5-5.1); Blood Urea Nitrogen 63 mg/dL (7-17); Calcium 8.1 mg/dL (8.4-10.2); Carbon Dioxide > 40 mmol/L (22-30); Chloride 93 mmol/L (98-107); Estimated CRCL calculation 17 ml/min; Estimated Glomerular Filt Rate 13; Glucose 98 mg/dL (65-110); Phosphorus 3.9 mg/dL (2.5-4.5); Potassium 3.1 mmol/L (3.4-5.0); Sodium 137 mmol/L (137-145)
[2021-09-19 07:55] LABS: NT Pro B Type Natriuretic Pept 10800 pg/mL (5-100)
[2021-09-19] MEDS: DORNASE ALFA INH SOLN 1 MG/ML 2.5 ML AMP 2.5 MG INHALATION (08:09)
[2021-09-19] MEDS: FLUTICASONE/UMECLIDIN/VILANTER 100-62.5-25 MCG ELLIPTA 1 PUFF INHALATION (08:10)
[2021-09-19] MEDS: METOPROLOL TARTRATE 50 MG TAB PO ×2 (08:25→21:04)
[2021-09-19] MEDS: CHOLECALCIFEROL 1,000 UNITS TABLET 1000 UNITS PO (08:27)
[2021-09-19] MEDS: PENTOXIFYLLINE 400 MG TABCR PO ×2 (08:27→18:16)
[2021-09-19] MEDS: DICYCLOMINE HCL 10 MG CAPSULE 20 MG PO ×2 (08:27→18:16)
[2021-09-19] MEDS: SERTRALINE HCL 25 MG TABLET PO (08:27)
[2021-09-19] MEDS: MAGNESIUM OXIDE 400 MG TABLET PO (08:27)
[2021-09-19] MEDS: FERROUS SULFATE 324 MG TABLET PO ×2 (08:27→18:16)
[2021-09-19] MEDS: LIDOCAINE 5% PATCH 1 PATCH TRANSDERM (08:28)
[2021-09-19] MEDS: PANTOPRAZOLE 40 MG TABLET PO ×2 (08:28→21:05)
[2021-09-19] MEDS: SPIRONOLACTONE 25 MG TABLET PO (08:28)
[2021-09-19] MEDS: TOLNAFTATE 1% POWDER 45 GM BTL 1 APPLIC TOPICAL ×2 (08:32→21:05)
--- NOTE | 2021-09-19 09:32 | P.PNNP_ITS ---
Progress Note: A&P Assessment and Plan (1) KONRAD (acute kidney injury): Code(s): N17.9 - Acute kidney failure, unspecified Status: Acute Assessment and Plan: * she actually comes to see me in the office. * Her baseline GFR is around 50 with a creatinine of 1.1-1.2. * She also has KONRAD. * suspect multifactorial ATN: * COVID-19 infection * bacteremia + UTI * fluctuating hemodynamics * hypoxia * renal ultrasound shows normal kidneys * urine electrolytes are prerenal. * She has no rash or eosinophilia. * Creatinine is up to 3.5. * Most likely the elevated creatinine is a combination of pre renal azotemia p michael response to pulmonary issues. * potassium is only 3.1. * She is on spironolactone but no other diuretics. (2) Pneumonia due to COVID-19 virus: Code(s): U07.1 - COVID-19; J12.82 - Pneumonia due to coronavirus disease 2018 Status: Acute Assessment and Plan: * continue supportive therapy * s/p remdesivir and steroids * follow respiratory status * Isolation his timed out (3) Acute hypoxemic respiratory failure: Code(s): J96.01 - Acute respiratory failure with hypoxia Status: Acute Assessment and Plan: * at high risk for needing ventilator support * tolerated BiPAP therapy * complicated by known COPD and AMANDA * CT scan from yesterday showed right middle lobe collapse, pleural effusions right greater than left. * Dr. Tellez looking in on the patient. (4) Sepsis: Code(s): A41.9 - Sepsis, unspecified organism Status: Acute Assessment and Plan: * from pneumonia, COVID, and UTI * completed course of antibiotics (5) Urinary tract infection: Code(s): N39.0 - Urinary tract infection, site not specified Status: Acute Assessment and Plan: * urine culture with Enterococcus * complete course of antibiotics Will continue to follow. Subjective Date/time seen: 09/19/21 09:32 Interval history: patient lying in bed . On nasal cannula. She was on BiPAP all night she says. She denies shortness of breath. Exam Narrative: WDWN in NAD skin no rash head ncat lungs decreased breath sounds at the bases, mildly coarse above that. cor reg no rub abd BS+ nontender and soft ext 1+ bilateral edema. Objective Data Vital Signs Vital Signs: Vital Signs - 24 hr 09/18/21 14:00 09/18/21 20:00 09/18/21 20:29 Temperature 36.2 C L 36.6 C Pulse Rate 68 91 88 Respiratory Rate 21 H 20 20 Blood Pressure 116/52 L 110/81 Pulse Oximetry 95 96 09/18/21 20:36 09/19/21 00:40 09/19/21 02:57 Temperature Pulse Rate 84 88 94 Respiratory Rate 20 21 H 25 H Blood Pressure Pulse Oximetry 93 94 09/19/21 05:31 09/19/21 08:10 09/19/21 08:14 Temperature 36.7 C Pulse Rate 80 89 Respiratory Rate 20 24 H Blood Pressure 132/79 Pulse Oximetry 100 83 L 09/19/21 08:15 09/19/21 08:22 Temperature Pulse Rate 100 Respiratory Rate 22 H Blood Pressure Pulse Oximetry 91 Intake/Output Intake/Output: Intake & Output 09/16/21 09/17/21 09/18/21 09/19/21 23:59 23:59 23:59
--- NOTE | 2021-09-19 09:32 | PM.PNNEP ---
Progress Note: A&P Assessment and Plan (1) KONRAD (acute kidney injury): Code(s): N17.9 - Acute kidney failure, unspecified Status: Acute Assessment and Plan: she actually comes to see me in the office. Her baseline GFR is around 50 with a creatinine of 1.1-1.2. She also has KONRAD. suspect multifactorial ATN: COVID-19 infection bacteremia + UTI fluctuating hemodynamics hypoxia renal ultrasound shows normal kidneys urine electrolytes are prerenal. She has no rash or eosinophilia. Creatinine is up to 3.5. Most likely the elevated creatinine is a combination of pre renal azotemia plus response to pulmonary issues. potassium is only 3.1. She is on spironolactone but no other diuretics. (2) Pneumonia due to COVID-19 virus: Code(s): U07.1 - COVID-19; J12.82 - Pneumonia due to coronavirus disease 2019 Status: Acute Assessment and Plan: continue supportive therapy s/p remdesivir and steroids follow respiratory status Isolation his timed out (3) Acute hypoxemic respiratory failure: Code(s): J96.01 - Acute respiratory failure with hypoxia Status: Acute Assessment and Plan: at high risk for needing ventilator support tolerated BiPAP therapy complicated by known COPD and AMANDA CT scan from yesterday showed right middle lobe collapse, pleural effusions right greater than left. Dr. Tellez looking in on the patient. (4) Sepsis: Code(s): A41.9 - Sepsis, unspecified organism Status: Acute Assessment and Plan: from pneumonia, COVID, and UTI completed course of antibiotics (5) Urinary tract infection: Code(s): N39.0 - Urinary tract infection, site not specified Status: Acute Assessment and Plan: urine culture with Enterococcus complete course of antibiotics Will continue to follow. Subjective Date/time seen: 09/19/21 09:32 Interval history: patient lying in bed . On nasal cannula. She was on BiPAP all night she says. She denies shortness of breath. Exam Narrative: WDWN in NAD skin no rash head ncat lungs decreased breath sounds at the bases, mildly coarse above that. cor reg no rub abd BS+ nontender and soft ext 1+ bilateral edema. Objective Data Vital Signs Vital Signs: Vital Signs - 24 hr 09/18/21 14:00 09/18/21 20:00 09/18/21 20:29 Temperature 36.2 C L 36.6 C Pulse Rate 68 91 88 Respiratory Rate 21 H 20 20 Blood Pressure 116/52 L 110/81 Pulse Oximetry 95 96 09/18/21 20:36 09/19/21 00:40 09/19/21 02:57 Temperature Pulse Rate 84 88 94 Respiratory Rate 20 21 H 25 H Blood Pressure Pulse Oximetry 93 94 09/19/21 05:31 09/19/21 08:10 09/19/21 08:14 Temperature 36.7 C Pulse Rate 80 89 Respiratory Rate 20 24 H Blood Pressure 132/79 Pulse Oximetry 100 83 L 09/19/21 08:15 09/19/21 08:22 Temperature Pulse Rate 100 Respiratory Rate 22 H Blood Pressure Pulse Oximetry 91 Intake/Output Intake/Output: Intake & Output 09/16/21 09/17/21 09/18/21 09/19/21 23:59 23:59 23:59 23:59 Intake Total 960 320 810 200 Output Total 1000 700 850 250 Balance -40 -380 -40 -50 Meds/Results Medications: Active Medications Generic Name Dose Route Start Last Admin Trade Name Freq PRN Reason Stop Dose Admin Acetaminophen 500 mg 08/10/21 07:46 09/18/21 22:04 Acetaminophen 500 Mg Tablet PO 10/09/21 07:45 500 mg Q6H PRN Administration Pain (1-3) Or Fever Albuterol 1 puff 08/10/21 07:46 Albuterol Sulfate (*Sp) Aerosol 1 Puff INHALATION 10/09/21 07:45 Q4-6H PRN Shortness Of Breath Bisacodyl 5 mg 09/18/21 09:00 09/19/21 08:25 Bisacodyl 5 Mg Tablet Ec PO Not Given QAM GUCCI Dicyclomine HCl 20 mg 08/10/21 09:00 09/19/21 08:27 Dicyclomine Hcl 10 Mg Capsule PO 10/09/21 08:59 20 mg BID GUCCI Administration Dornase Bakari 2.5 mg 09/16/21 20:00 09/19/21 08:09 Dornase
[2021-09-19] MEDS: PERFLUTREN LIPID MICROSPHERES 1.5 ML VIAL DILUTED TO 10 ML TOTAL VOLUME IV PUSH (09:33)
--- NOTE | 2021-09-19 09:33 | IVDEFINITY ---
Prior to administration of IV Definity the patient was educated on the risks and benefits of the imaging enhancing agent including potential adverse side effects. The patient verbalized understanding. Allergies were verified. No exclusion criteria were identified and at least one of the following inclusion criteria were met: 1) physician request, 2) patient technically difficult to image (per the [place] [employer] guidelines of two or more segments not discernable within the apical view), or 3) questionable left ventricular function. ?
--- NOTE | 2021-09-19 09:52 | PC.NURSE ---
PT on at 10L per NRB mask. Sats checked at 91%.
--- NOTE | 2021-09-19 10:31 | PM.PNPUL ---
Progress Note: A&P Assessment and Plan (1) Acute and chronic respiratory failure with hypercapnia: Onset Date: ~07/2021 Code(s): J96.22 - Acute and chronic respiratory failure with hypercapnia Status: Chronic Assessment and Plan: 09/17 She has baseline CO2 50-60s, admitted Aug 10, 2021 with sepsis due to pneumonia, then developed COVID August 23 with treatment including remdesivir & dexamethasone. Antibiotics early in the admission included Vancomycin until Aug 20 and Cefepime until 08/17, changed to Ancef until Aug 26, remdesivir until Aug 26. She also developed urinary tract infection, alteration in mental status, gradual improvement in her pCO2 wearing BiPAP at times alternating with AVAPS. Her oxygen requirement went up September 10 and is now at 70%. Her last CT of everything chest/abd/pelvis Sep 12 = Extensive bilateral airspace disease, compatible with pneumonia; Small pleural effusions, Cholelithiasis, Small hyperdense left renal lesions, not well visualized due to streak artifact. Correlation with ultrasound recommended. She has not been able to have a thoracentesis on the right due to absence of fluid on ultrasound on Sep 01, so the CT chest may indicate more fluid that she really has. The right hemidiaphragm is elevated from prior surgery. It is not clear if she has an active new infection or if her infiltrates are residual from COVID, or if these represent pulmonary edema due to her CHF. She has not had antibiotics for 3 weeks. Will check urine antigens for pneumococcus, Legionella, send viral multiplex; change settings on BiPAP, check ABG; consider code change. I am not hopeful that she has a reasonable chance to improve and be discharged with continuous stay of 37 days, and has not been able to get to a stable baseline during that time under constant care by multiple doctors. She is going back on BiPAP 20/12 with 70% O2, ABG in am, and consideration for a thoracentesis on the right. Last attempt for this was not completed as she did not have fluid on ultrasound. Her GI blood loss is contributing to her shortness of breath and she is close to needing a transfusion. 09/18 most recently her complete opacification of the right hemidiaphragm with shift of the trachea to the right suggests that she had a mucus plug. She remains debilitated with a poor cough and this may be a recurring issue. This improved with BiPAP, Pulmozyme 2.5 Q 12 and continuation of her trelegy. I will order CT scan of the chest to better define her pleural effusions, pulmonary infiltrates which may be related to fluid overload, pneumonia and or post COVID. Will wean her FiO2 as tolerated to maintain saturations greater than 90% during the day and try to maintain her off BiPAP as tolerated. Will try to sit her up in bed and continue aggressive physical therapy as tolerated. Agree with holding her diuretics as she has acute kidney injury. She is being followed by the renal service. 09/19 Patient wore her BiPAP all night and said that she slept well. Patient is currently on 15 L nasal cannula saturations 91%. Creatinine is 3.5. Patient had a CT scan of the chest yesterday demonstrating moderate size right and small left pleural effusion. Portion of the right pleural effusion was loculated. She also has diffuse interstitial alveolar infiltrates. Patient is scheduled for ultrasound-guided thoracentesis on 09/20. Etiology of her diffuse interstitial alveolar infiltrates include post COVID pneumonia -interstitial lung disease, fluid [place] [address], and Less likely pneumonia as she is afebrile without a white blood cell count and no sputum production. Will consider broad-spectrum antibiotics following thoracentesis. Will follow with you Subjective Date/time seen: 09/19/21 10:31 Interval history: 08/16/21 15:39 Patient tells me that she is breathing back to her normal. Patient is on 4 L nasal cannula
--- NOTE | 2021-09-19 12:45 | PC.NURSE ---
Attempt to get urine specimen from [place]. Pt with lower output. Will push fluids. Pt resting comfortably with catheter intact and draining.
[2021-09-20] VITALS (15 sets, daily range): BP systolic 130–145; BP diastolic 56–75; PULSE 80–100; RESP 19–24; TEMP 35.9–36.3; O2SAT 90–99
[2021-09-20] MEDS: LEVOTHYROXINE SODIUM 125 MCG TABLET PO (05:37)
[2021-09-20] MEDS: FLUTICASONE/UMECLIDIN/VILANTER 100-62.5-25 MCG ELLIPTA 1 PUFF INHALATION (08:33)
[2021-09-20] MEDS: DORNASE ALFA INH SOLN 1 MG/ML 2.5 ML AMP 2.5 MG INHALATION ×2 (08:33→20:07)
[2021-09-20] MEDS: TOLNAFTATE 1% POWDER 45 GM BTL 1 APPLIC TOPICAL ×2 (08:55→22:19)
--- NOTE | 2021-09-20 09:23 | P.PNPL_ITS ---
Progress Note: A&P Assessment and Plan (1) Acute and chronic respiratory failure with hypercapnia: Onset Date: ~07/2021 Code(s): J96.22 - Acute and chronic respiratory failure with hypercapnia Status: Chronic Assessment and Plan: 09/17 She has baseline CO2 50-60s, admitted Aug 10, 2021 with sepsis due to pneumonia, then developed COVID August 23 with treatment including remdesivir & dexamethasone. Antibiotics early in the admission included Vancomycin until Aug 20 and Cefepime until 08/17, changed to Ancef until Aug 26, remdesivir until Aug 26. She also developed urinary tract infection, alteration in mental status, gradual improvement in her pCO2 wearing BiPAP at times alternating with AVAPS. Her oxygen requirement went up September 10 and is now at 70%. Her last CT of everything chest/abd/pelvis Sep 12 = Extensive bilateral airspace disease, compatible with pneumonia; Small pleural effusions, Cholelithiasis, Small hyperdense left renal lesions, not well visualized due to streak artifact. Correlation with ultrasound recommended. She has not been able to have a thoracentesis on the right due to absence of fluid on ultrasound on Sep 01, so the CT chest may indicate more fluid that she really has. The right hemidiaphragm is elevated from prior surgery. It is not clear if she has an active new infection or if her infiltrates are residual from COVID, or if these represent pulmonary edema due to her CHF. She has not had antibiotics for 3 weeks. Will check urine antigens for pneumococcus, Legionella, send viral multiplex; change settings on BiPAP, check ABG; consider code change. I am not hopeful that she has a reasonable chance to improve and be discharged with continuous stay of 37 days, and has not been able to get to a stable baseline during that time under constant care by multiple doctors. She is going back on BiPAP 20/12 with 70% O2, ABG in am, and consideration for a thoracentesis on the right. Last attempt for this was not completed as she did not have fluid on ultrasound. Her GI blood loss is contributing to her shortness of breath and she is close to needing a transfusion. 09/18 most recently her complete opacification of the right hemidiaphragm with shift of the trachea to the right suggests that she had a mucus plug. She remains debilitated with a poor cough and this may be a recurring issue. This improved with BiPAP, Pulmozyme 2.5 Q 12 and continuation of her trelegy. I will order CT scan of the chest to better define her pleural effusions, pulmonary infiltrates which may be related to fluid overload, pneumonia and or post COVID. Will wean her FiO2 as tolerated to maintain saturations greater than 90% during the day and try to maintain her off BiPAP as tolerated. Will try to sit her up in bed and continue aggressive physical therapy as tolerated. Agree with holding her diuretics as she has acute kidney injury. She is being followed by the renal service. 09/19 Patient wore her BiPAP all night and said that she slept well. Patient is currently on 15 L nasal cannula saturations 91%. Creatinine is 3.5. Patient had a CT scan of the chest yesterday demonstrating moderate size right and small left pleural effusion. Portion of the right pleural effusion was loculated. She also has diffuse interstitial alveolar infiltrates. Patient is scheduled for ultrasound-guided thoracentesis on 09/20. Etiology of her diffuse interstitial alveolar infiltrates include post COVID pneumonia - interstitial lung disease, fluid overload [place] [address], and Less likely pneumonia as she is afebrile without a white blood cell count and no sputum production. Will consider broad-spectrum antibiotics following t
--- NOTE | 2021-09-20 09:26 | P.PNNP_ITS ---
Progress Note: A&P Assessment and Plan (1) KONRAD (acute kidney injury): Code(s): N17.9 - Acute kidney failure, unspecified Status: Acute Assessment and Plan: * she actually comes to see me in the office. * Her baseline GFR is around 50 with a creatinine of 1.1-1.2. * She also has KONRAD. * suspect multifactorial ATN: * COVID-19 infection * bacteremia + UTI * fluctuating hemodynamics * hypoxia * renal ultrasound shows normal kidneys * urine electrolytes are prerenal. * She has no rash or eosinophilia. * Creatinine is not done. Order. * Most likely the elevated creatinine is a combination of pre renal azotemia plus response to pulmonary issues. * Recheck the potassium as well * She is on spironolactone but no other diuretics. (2) Pneumonia due to COVID-19 virus: Code(s): U07.1 - COVID-19; J12.82 - Pneumonia due to coronavirus disease 2019 Status: Acute Assessment and Plan: * continue supportive therapy * s/p remdesivir and steroids * follow respiratory status * Isolation his timed out (3) Acute hypoxemic respiratory failure: Code(s): J96.01 - Acute respiratory failure with hypoxia Status: Acute Assessment and Plan: * at high risk for needing ventilator support * tolerated BiPAP therapy * complicated by known COPD and AMANDA * CT scan from yesterday showed right middle lobe collapse, pleural effusions right greater than left. * Dr. Tellez evaluating the patient. (4) Sepsis: Code(s): A41.9 - Sepsis, unspecified organism Status: Acute Assessment and Plan: * from pneumonia, COVID, and UTI * completed course of antibiotics (5) Urinary tract infection: Code(s): N39.0 - Urinary tract infection, site not specified Status: Acute Assessment and Plan: * urine culture with Enterococcus * complete course of antibiotics Will continue to follow. Subjective Date/time seen: 09/20/21 09:26 Interval history: patient lying in bed . On nasal cannula. She has diarrhea. Exam Narrative: WDWN in NAD skin no rashor subcu nodules head ncat lungs decreased breath sounds at the bases, mildly coarse above that. cor reg no rub abd BS+ nontender and soft ext 1+ bilateral edema. Objective Data Vital Signs Vital Signs: Vital Signs - 24 hr 09/19/21 13:47 09/19/21 20:00 09/19/21 21:04 Temperature 36.0 C L Pulse Rate 92 93 86 Respiratory Rate 20 20 Blood Pressure 124/62 Pulse Oximetry 91 90 09/19/21 21:17 09/19/21 21:34 09/19/21 21:36 Temperature 36.1 C L Pulse Rate 88 93 Respiratory Rate 22 H 20 Blood Pressure 158/85 H Pulse Oximetry 91 81 L 09/19/21 23:30 09/20/21 03:53 09/20/21 05:48 Temperature 36.1 C L Pulse Rate 88 80 85 Respiratory Rate 22 H 19 20 Blood Pressure 134/75 Pulse Oximetry 91 93 99 09/20/21 08:00 Temperature Pulse Rate Respiratory Rate Blood Pressure Pulse Oximetry 90 Intake/Output Intake/Output: Intake & Output 09/17/21 09/18/21 09/19/21 09/20/21 23:59 23:59 23:59 23:59 Intake Total 320 810 465 100 Output Tot
--- NOTE | 2021-09-20 09:26 | PM.PNNEP ---
Progress Note: A&P Assessment and Plan (1) KONRAD (acute kidney injury): Code(s): N17.9 - Acute kidney failure, unspecified Status: Acute Assessment and Plan: she actually comes to see me in the office. Her baseline GFR is around 50 with a creatinine of 1.1-1.2. She also has KONRAD. suspect multifactorial ATN: COVID-19 infection bacteremia + UTI fluctuating hemodynamics hypoxia renal ultrasound shows normal kidneys urine electrolytes are prerenal. She has no rash or eosinophilia. Creatinine is not done. Order. Most likely the elevated creatinine is a combination of pre renal azotemia plus response to pulmonary issues. Recheck the potassium as well She is on spironolactone but no other diuretics. (2) Pneumonia due to COVID-19 virus: Code(s): U07.1 - COVID-19; J12.82 - Pneumonia due to coronavirus disease 2019 Status: Acute Assessment and Plan: continue supportive therapy s/p remdesivir and steroids follow respiratory status Isolation his timed out (3) Acute hypoxemic respiratory failure: Code(s): J96.01 - Acute respiratory failure with hypoxia Status: Acute Assessment and Plan: at high risk for needing ventilator support tolerated BiPAP therapy complicated by known COPD and AMANDA CT scan from yesterday showed right middle lobe collapse, pleural effusions right greater than left. Dr. Tellez evaluating the patient. (4) Sepsis: Code(s): A41.9 - Sepsis, unspecified organism Status: Acute Assessment and Plan: from pneumonia, COVID, and UTI completed course of antibiotics (5) Urinary tract infection: Code(s): N39.0 - Urinary tract infection, site not specified Status: Acute Assessment and Plan: urine culture with Enterococcus complete course of antibiotics Will continue to follow. Subjective Date/time seen: 09/20/21 09:26 Interval history: patient lying in bed . On nasal cannula. She has diarrhea. Exam Narrative: WDWN in NAD skin no rashor subcu nodules head ncat lungs decreased breath sounds at the bases, mildly coarse above that. cor reg no rub abd BS+ nontender and soft ext 1+ bilateral edema. Objective Data Vital Signs Vital Signs: Vital Signs - 24 hr 09/19/21 13:47 09/19/21 20:00 09/19/21 21:04 Temperature 36.0 C L Pulse Rate 92 93 86 Respiratory Rate 20 20 Blood Pressure 124/62 Pulse Oximetry 91 90 09/19/21 21:17 09/19/21 21:34 09/19/21 21:36 Temperature 36.1 C L Pulse Rate 88 93 Respiratory Rate 22 H 20 Blood Pressure 158/85 H Pulse Oximetry 91 81 L 09/19/21 23:30 09/20/21 03:53 09/20/21 05:48 Temperature 36.1 C L Pulse Rate 88 80 85 Respiratory Rate 22 H 19 20 Blood Pressure 134/75 Pulse Oximetry 91 93 99 09/20/21 08:00 Temperature Pulse Rate Respiratory Rate Blood Pressure Pulse Oximetry 90 Intake/Output Intake/Output: Intake & Output 09/17/21 09/18/21 09/19/21 09/20/21 23:59 23:59 23:59 23:59 Intake Total 320 810 465 100 Output Total 700 850 475 300 Balance -380 -40 -10 -200 Meds/Results Medications: Active Medications Generic Name Dose Route Start Last Admin Trade Name Freq PRN Reason Stop Dose Admin Acetaminophen 500 mg 08/10/21 07:46 09/18/21 22:04 Acetaminophen 500 Mg Tablet PO 10/09/21 07:45 500 mg Q6H PRN Administration Pain (1-3) Or Fever Albuterol 1 puff 08/10/21 07:46 Albuterol Sulfate (*Sp) Aerosol 1 Puff INHALATION 10/09/21 07:45 Q4-6H PRN Shortness Of Breath Bisacodyl 5 mg 09/18/21 09:00 09/20/21 08:50 Bisacodyl 5 Mg Tablet Ec PO Not Given QAM GUCCI Dicyclomine HCl 20 mg 08/10/21 09:00 09/20/21 08:50 Dicyclomine Hcl 10 Mg Capsule PO 10/09/21 08:59 Not Given BID GUCCI Dornase Bakari 2.5 mg 09/16/21 20:00 09/19/21 08:09 Dornase Bakari Inh Soln 1 Mg/Ml 2.5 Ml Amp INHALATION 2.5 mg Q12HRT GUCCI
[2021-09-20 11:20] LABS: Blood Urea Nitrogen 63 mg/dL (7-17); Calcium 8.2 mg/dL (8.4-10.2); Carbon Dioxide > 40 mmol/L (22-30); Chloride 94 mmol/L (98-107); Estimated CRCL calculation 17 ml/min; Estimated Glomerular Filt Rate 13; Glucose 95 mg/dL (65-110); Potassium 3.5 mmol/L (3.4-5.0); Sodium 140 mmol/L (137-145)
[2021-09-20 11:25] LABS: Lactate Dehydrogenase 844 U/L (313-618)
[2021-09-20 12:03] LABS: INR 1.1
[2021-09-20 13:55] LABS: pH Pleural Fluid 7.408 (7.210-7.500)
[2021-09-20 14:53] LABS: Appearance Pleural Fluid Hazy (Clear); Color Pleural Fluid Yellow (Colorless); Pleural fluid source Pleural fluid
[2021-09-20 16:59] LABS: Lymphocytes Pleural Fluid 88 %; Neutrophils Pleural Fluid 4 % (0-25)
[2021-09-20 17:00] LABS: Macrophages Pleural Fluid 1 %; Monocytes Pleural Fluid 7 %
[2021-09-20] MEDS: DICYCLOMINE HCL 10 MG CAPSULE 20 MG PO (17:32)
[2021-09-20] MEDS: RIVAROXABAN 15 MG TABLET PO (17:32)
[2021-09-20] MEDS: FERROUS SULFATE 324 MG TABLET PO (17:32)
[2021-09-20] MEDS: PENTOXIFYLLINE 400 MG TABCR PO (17:33)
[2021-09-20] MEDS: METOPROLOL TARTRATE 50 MG TAB PO (22:13)
[2021-09-20] MEDS: PANTOPRAZOLE 40 MG TABLET PO (22:13)
[2021-09-21] VITALS (12 sets, daily range): BP systolic 136–143; BP diastolic 72–79; PULSE 83–95; RESP 20–22; TEMP 35.8–36.2; O2SAT 89–95
[2021-09-21] MEDS: LEVOTHYROXINE SODIUM 125 MCG TABLET PO (06:00)
[2021-09-21] MEDS: FLUTICASONE/UMECLIDIN/VILANTER 100-62.5-25 MCG ELLIPTA 1 PUFF INHALATION (08:15)
[2021-09-21] MEDS: DORNASE ALFA INH SOLN 1 MG/ML 2.5 ML AMP 2.5 MG INHALATION ×2 (08:15→21:38)
--- NOTE | 2021-09-21 09:56 | PCOTNOTE ---
Attempted OT re-evaluation, despite encouragement to participate with OT, patient reports does not want to work with therapy today. Will follow. RN notified.
--- NOTE | 2021-09-21 09:57 | P.PNNP_ITS ---
Progress Note: A&P Assessment and Plan (1) KONRAD (acute kidney injury): Code(s): N17.9 - Acute kidney failure, unspecified Status: Acute Assessment and Plan: * she actually comes to see me in the office. * Her baseline GFR is around 50 with a creatinine of 1.1-1.2. * She also has KONRAD. * suspect multifactorial ATN: * COVID-19 infection * bacteremia + UTI * fluctuating hemodynamics * hypoxia * renal ultrasound shows normal kidneys * urine electrolytes are prerenal. * She has no rash or eosinophilia. * Creatinine Is still high. It has been in this range for about 3 days. * Most likely the elevated creatinine is a combination of pre renal azotemia plus response to pulmonary issues. * I feel that the kidneys are not going to get better soon. She has excess fluid in her lungs and also has swelling. Are think that we should try diuretics more aggressively to remove fluid. If this does not work then she may need dialysis. I talked with the patient about this plan and she seems to agree. She understands that she has significant underlying kidney disease and that her acute kidney injury on top of the chronic disease is making it difficult for her kidneys to get rid of the fluid. * She is on spironolactone but no other diuretics. Will add Bumex and metolazone. (2) Pneumonia due to COVID-19 virus: Code(s): U07.1 - COVID-19; J12.82 - Pneumonia due to coronavirus disease 2019 Status: Acute Assessment and Plan: * continue supportive therapy * s/p remdesivir and steroids * follow respiratory status * Isolation his timed out (3) Acute hypoxemic respiratory failure: Code(s): J96.01 - Acute respiratory failure with hypoxia Status: Acute Assessment and Plan: * She is trying to use the BiPAP at night as tolerated. * Oxygen requirements are still fairly high. * complicated by known COPD and AMANDA * CT scan from yesterday showed right middle lobe collapse, pleural effusions right greater than left. * Thoracentesis done. Not many cells. Chemistries are pending. * Dr. Tellez evaluating the patient. (4) Sepsis: Code(s): A41.9 - Sepsis, unspecified organism Status: Acute Assessment and Plan: * recent cultures negative so far. (5) Urinary tract infection: Code(s): N39.0 - Urinary tract infection, site not specified Status: Acute Assessment and Plan: * Resolved Subjective Date/time seen: 09/21/21 09:57 Interval history: patient lying in bed . a face mask for oxygenation. Exam Narrative: WDWN in NAD skin no rashor subcu nodules head ncat lungs decreased breath sounds at the bases, mildly coarse above that. cor reg no rub abd BS+ nontender and soft ext 1+ bilateral edema. Objective Data Vital Signs Vital Signs: Vital Signs - 24 hr 09/20/21 13:15 09/20/21 13:20 09/20/21 13:39 Temperature Pulse Rate 100 97 Respiratory Rate 24 H 24 H Blood Pressure 131/56 L 130/58 L Pulse Oximetry 92 90 92 09/20/21 14:55 09/20/21 20:00 09/20/21 20:07 Temperature 35.9 C L Pulse Rate 97 84 98 Respiratory Rate 20 22 H 19 Blood Pressure 134/71 Pulse Oximetry 90 93 09/20/21 20:08 09/20/21 20:16 09/20/21 22:00 Temperature 36.3 C L Pulse Rate 98
--- NOTE | 2021-09-21 09:57 | PM.PNNEP ---
Progress Note: A&P Assessment and Plan (1) KONRAD (acute kidney injury): Code(s): N17.9 - Acute kidney failure, unspecified Status: Acute Assessment and Plan: she actually comes to see me in the office. Her baseline GFR is around 50 with a creatinine of 1.1-1.2. She also has KONRAD. suspect multifactorial ATN: COVID-19 infection bacteremia + UTI fluctuating hemodynamics hypoxia renal ultrasound shows normal kidneys urine electrolytes are prerenal. She has no rash or eosinophilia. Creatinine Is still high. It has been in this range for about 3 days. Most likely the elevated creatinine is a combination of pre renal azotemia plus response to pulmonary issues. I feel that the kidneys are not going to get better soon. She has excess fluid in her lungs and also has swelling. Are think that we should try diuretics more aggressively to remove fluid. If this does not work then she may need dialysis. I talked with the patient about this plan and she seems to agree. She understands that she has significant underlying kidney disease and that her acute kidney injury on top of the chronic disease is making it difficult for her kidneys to get rid of the fluid. She is on spironolactone but no other diuretics. Will add Bumex and metolazone. (2) Pneumonia due to COVID-19 virus: Code(s): U07.1 - COVID-19; J12.82 - Pneumonia due to coronavirus disease 2019 Status: Acute Assessment and Plan: continue supportive therapy s/p remdesivir and steroids follow respiratory status Isolation his timed out (3) Acute hypoxemic respiratory failure: Code(s): J96.01 - Acute respiratory failure with hypoxia Status: Acute Assessment and Plan: She is trying to use the BiPAP at night as tolerated. Oxygen requirements are still fairly high. complicated by known COPD and AMANDA CT scan from yesterday showed right middle lobe collapse, pleural effusions right greater than left. Thoracentesis done. Not many cells. Chemistries are pending. Dr. Tellez evaluating the patient. (4) Sepsis: Code(s): A41.9 - Sepsis, unspecified organism Status: Acute Assessment and Plan: recent cultures negative so far. (5) Urinary tract infection: Code(s): N39.0 - Urinary tract infection, site not specified Status: Acute Assessment and Plan: Resolved Subjective Date/time seen: 09/21/21 09:57 Interval history: patient lying in bed . a face mask for oxygenation. Exam Narrative: WDWN in NAD skin no rashor subcu nodules head ncat lungs decreased breath sounds at the bases, mildly coarse above that. cor reg no rub abd BS+ nontender and soft ext 1+ bilateral edema. Objective Data Vital Signs Vital Signs: Vital Signs - 24 hr 09/20/21 13:15 09/20/21 13:20 09/20/21 13:39 Temperature Pulse Rate 100 97 Respiratory Rate 24 H 24 H Blood Pressure 131/56 L 130/58 L Pulse Oximetry 92 90 92 09/20/21 14:55 09/20/21 20:00 09/20/21 20:07 Temperature 35.9 C L Pulse Rate 97 84 98 Respiratory Rate 20 22 H 19 Blood Pressure 134/71 Pulse Oximetry 90 93 09/20/21 20:08 09/20/21 20:16 09/20/21 22:00 Temperature 36.3 C L Pulse Rate 98 99 Respiratory Rate 20 20 Blood Pressure 145/61 H Pulse Oximetry 90 90 09/20/21 23:51 09/21/21 03:25 09/21/21 06:00 Temperature 36.1 C L Pulse Rate 84 85 Respiratory Rate 22 H 21 H 20 Blood Pressure 143/79 H Pulse Oximetry 93 89 L 90 09/21/21 08:16 Temperature Pulse Rate 87 Respiratory Rate 20 Blood Pressure Pulse Oximetry 91 Intake/Output Intake/Output: Intake & Output 09/18/21 09/19/21 09/20/21 09/21/21 23:59 23:59 23:59 23:59 Intake Total 810 465 720 200 Output Total 850 475 950 200 Balance -40 -10 -230 0 Meds/Results Medications: Active Medications Generic Name Dose Route Start Last Admin Trade Name Freq PRN
--- NOTE | 2021-09-21 09:58 | PCPTNOTE ---
Attempted PT re-evaluation, despite encouragement to participate with PT, patient reports does not want to work with therapy today. Will follow. RN notified.
[2021-09-21] MEDS: DICYCLOMINE HCL 10 MG CAPSULE 20 MG PO (10:15)
[2021-09-21] MEDS: CHOLECALCIFEROL 1,000 UNITS TABLET 1000 UNITS PO (10:15)
[2021-09-21] MEDS: MAGNESIUM OXIDE 400 MG TABLET PO (10:15)
[2021-09-21 10:16] LABS: Hematocrit 28.4 % (37.0-47.0); Hemoglobin 8.5 g/dL (12.0-15.0); Mean Corpuscular HGB Conc 29.9 g/dl (32-36); Mean Corpuscular Hemoglobin 32.3 pg (26-34); Mean Platelet Volume 11.9 fl (7.4-10.4); Platelet Count Result 222 k/mm3 (150-375); Red Blood Count 2.63 M/mm3 (4.2-5.4); Red Cell Distribution Width 17.4 % (11.5-14.5); White Blood Count 5.4 K/mm3 (4.5-10.0)
[2021-09-21] MEDS: FERROUS SULFATE 324 MG TABLET PO (10:16)
[2021-09-21] MEDS: METOPROLOL TARTRATE 50 MG TAB PO ×2 (10:16→20:07)
[2021-09-21] MEDS: SERTRALINE HCL 25 MG TABLET PO (10:16)
[2021-09-21] MEDS: PANTOPRAZOLE 40 MG TABLET PO ×2 (10:16→20:07)
[2021-09-21] MEDS: PENTOXIFYLLINE 400 MG TABCR PO ×2 (10:16→17:48)
[2021-09-21] MEDS: BUMETANIDE INJ 2.5 MG/10 ML VIAL 2 MG IV PUSH ×3 (10:17→17:47)
[2021-09-21] MEDS: SPIRONOLACTONE 25 MG TABLET PO (10:17)
[2021-09-21] MEDS: TOLNAFTATE 1% POWDER 45 GM BTL 1 APPLIC TOPICAL ×2 (10:18→20:08)
[2021-09-21] MEDS: metOLazone 5 MG TABLET PO (10:23)
--- NOTE | 2021-09-21 10:37 | PM.PNPUL ---
Progress Note: A&P Assessment and Plan (1) Acute and chronic respiratory failure with hypercapnia: Onset Date: ~07/2021 Code(s): J96.22 - Acute and chronic respiratory failure with hypercapnia Status: Chronic Assessment and Plan: 09/17 She has baseline CO2 50-60s, admitted Aug 10, 2021 with sepsis due to pneumonia, then developed COVID August 23 with treatment including remdesivir & dexamethasone. Antibiotics early in the admission included Vancomycin until Aug 20 and Cefepime until 08/17, changed to Ancef until Aug 26, remdesivir until Aug 26. She also developed urinary tract infection, alteration in mental status, gradual improvement in her pCO2 wearing BiPAP at times alternating with AVAPS. Her oxygen requirement went up September 10 and is now at 70%. Her last CT of everything chest/abd/pelvis Sep 12 = Extensive bilateral airspace disease, compatible with pneumonia; Small pleural effusions, Cholelithiasis, Small hyperdense left renal lesions, not well visualized due to streak artifact. Correlation with ultrasound recommended. She has not been able to have a thoracentesis on the right due to absence of fluid on ultrasound on Sep 01, so the CT chest may indicate more fluid that she really has. The right hemidiaphragm is elevated from prior surgery. It is not clear if she has an active new infection or if her infiltrates are residual from COVID, or if these represent pulmonary edema due to her CHF. She has not had antibiotics for 3 weeks. Will check urine antigens for pneumococcus, Legionella, send viral multiplex; change settings on BiPAP, check ABG; consider code change. I am not hopeful that she has a reasonable chance to improve and be discharged with continuous stay of 37 days, and has not been able to get to a stable baseline during that time under constant care by multiple doctors. She is going back on BiPAP 20/12 with 70% O2, ABG in am, and consideration for a thoracentesis on the right. Last attempt for this was not completed as she did not have fluid on ultrasound. Her GI blood loss is contributing to her shortness of breath and she is close to needing a transfusion. 09/18 most recently her complete opacification of the right hemidiaphragm with shift of the trachea to the right suggests that she had a mucus plug. She remains debilitated with a poor cough and this may be a recurring issue. This improved with BiPAP, Pulmozyme 2.5 Q 12 and continuation of her trelegy. I will order CT scan of the chest to better define her pleural effusions, pulmonary infiltrates which may be related to fluid overload, pneumonia and or post COVID. Will wean her FiO2 as tolerated to maintain saturations greater than 90% during the day and try to maintain her off BiPAP as tolerated. Will try to sit her up in bed and continue aggressive physical therapy as tolerated. Agree with holding her diuretics as she has acute kidney injury. She is being followed by the renal service. 09/19 Patient wore her BiPAP all night and said that she slept well. Patient is currently on 15 L nasal cannula saturations 91%. Creatinine is 3.5. Patient had a CT scan of the chest yesterday demonstrating moderate size right and small left pleural effusion. Portion of the right pleural effusion was loculated. She also has diffuse interstitial alveolar infiltrates. Patient is scheduled for ultrasound-guided thoracentesis on 09/20. Etiology of her diffuse interstitial alveolar infiltrates include post COVID pneumonia -interstitial lung disease, [place] [address], and Less likely pneumonia as she is afebrile without a white blood cell count and no sputum production. Will consider broad-spectrum antibiotics following thoracentesis. 09/20 Patient currently on 15 L nasal cannula 15 L non-rebreather overlying this with saturations 92%. She does states she has some shortness of breath. She is scheduled to get a right thoracentesis if h
[2021-09-21 10:56] LABS: Albumin Level 3.1 g/dL (3.5-5.1); Blood Urea Nitrogen 66 mg/dL (7-17); Calcium 8.1 mg/dL (8.4-10.2); Carbon Dioxide > 40 mmol/L (22-30); Chloride 94 mmol/L (98-107); Estimated CRCL calculation 17 ml/min; Estimated Glomerular Filt Rate 13; Glucose 93 mg/dL (65-110); Phosphorus 5.2 mg/dL (2.5-4.5); Potassium 3.3 mmol/L (3.4-5.0); Sodium 139 mmol/L (137-145)
--- NOTE | 2021-09-21 11:20 | PC.NURSE ---
Patient lying in bed complained I can't breath . In no apparent distress and utilizing 15 liters of oxygen via non-rebreather mask; oxygen saturation was 76%. Patient placed on 15 liters of oxygen via high flow nasal cannula in addition to non-rebreather mask and oxygen saturation went up to 80%. Placed patient on Bipap at previous night's settings, oxygen saturation 90% and patient no longer complaining of shortness of breath.
--- NOTE | 2021-09-21 13:52 | PCNFU ---
Nutrition Follow-Up Complete: Inadequate oral intake related to decreased appetite as evidenced by average intake of 10% and pt. refusing several meals. Goal: Patient to meet estimated nutritional needs. Pt is making little progress toward goal. Pt current nutrition is Regular diet and dietary supplements Last recorded weight is 116.6 kg - down approximately 1.5lb. Bowel Motility: +BM 09/20 reported Labs Reviewed: hgb 8.5, hct 28.4, alb 3.1, Cl 94, K 3.3, GFR 13, BUN 66, Cr 3.5, Ca 8.1, NT-Pro-BNP 53365 Meds Noted: bumex, bentyl, ferrous sulfate, imipenem, synthroid, mag-ox, lopressor, protonix, trental, zoloft, aldactone, vitamin D Skin: bilateral buttock friction, bilateral skin fold groin Additional Notes: Unable to visit with pt due to following covid precautions. Pt remains BiPAP dependent. Current nutrition is a regular diet and dietary supplements of Ensure Clear TID providing an additional 240kcal and 8g of protein to increase caloric intake. Reported intake is 15% and 0%. Recommend continuing to encourage intake of regular diet and dietary supplements. Pt possible d/c tomorrow (09/22/21). Agree with diet orders at this time. Will continue to follow. Monitor pt. labs, medications, weight and oral intake every 3 days.
[2021-09-21] MEDS: RIVAROXABAN 15 MG TABLET PO (17:48)
[2021-09-21 22:15] LABS: Glucose Point of Care 101 mg/dl (65-105)
[2021-09-22] VITALS (9 sets, daily range): BP systolic 122; BP diastolic 63; PULSE 72–93; RESP 20–26; TEMP 36.6; O2SAT 93–94
[2021-09-22] MEDS: LEVOTHYROXINE SODIUM 125 MCG TABLET PO (05:31)
--- NOTE | 2021-09-22 06:12 | PC.NURSE ---
09/22/21 0609 CONTACTED [facility] T[facility]ARES ([facility]) REGARDING PT'S CHANGE IN CONDITION. PT'S SON STATED HE WILL BE HERE SOON.
[2021-09-22 06:36] LABS: Albumin Level 3.4 g/dL (3.5-5.1); Anion Gap 16 mmol/L (8-16); Blood Urea Nitrogen 63 mg/dL (7-17); Calcium 8.2 mg/dL (8.4-10.2); Carbon Dioxide 30 mmol/L (22-30); Chloride 93 mmol/L (98-107); Estimated CRCL calculation 14 ml/min; Estimated Glomerular Filt Rate 11; Glucose 225 mg/dL (65-110); Phosphorus 5.5 mg/dL (2.5-4.5); Potassium 3.2 mmol/L (3.4-5.0); Sodium 139 mmol/L (137-145)
--- NOTE | 2021-09-22 07:05 | PC.NURSE ---
09/22/21 0705 PT'S SON HERE AT PT'S BEDSIDE.
[2021-09-22] MEDS: METOPROLOL TARTRATE 50 MG TAB PO (10:11)
[2021-09-22] MEDS: polyethylene glycoL 3350 17 GM POWD.PACK PO (10:12)
[2021-09-22] MEDS: metOLazone 5 MG TABLET PO (10:12)
[2021-09-22] MEDS: DICYCLOMINE HCL 10 MG CAPSULE 20 MG PO (10:12)
[2021-09-22] MEDS: SERTRALINE HCL 25 MG TABLET PO (10:13)
[2021-09-22] MEDS: PENTOXIFYLLINE 400 MG TABCR PO (10:13)
[2021-09-22] MEDS: PANTOPRAZOLE 40 MG TABLET PO (10:13)
[2021-09-22] MEDS: SPIRONOLACTONE 25 MG TABLET PO (10:13)
[2021-09-22] MEDS: BISACODYL 5 MG TABLET EC PO (10:13)
[2021-09-22] MEDS: FERROUS SULFATE 324 MG TABLET PO (10:13)
[2021-09-22] MEDS: BUMETANIDE INJ 2.5 MG/10 ML VIAL 2 MG IV PUSH (10:14)
[2021-09-22] MEDS: DORNASE ALFA INH SOLN 1 MG/ML 2.5 ML AMP 2.5 MG INHALATION (10:15)
[2021-09-22] MEDS: LIDOCAINE 5% PATCH 1 PATCH TRANSDERM (10:15)
[2021-09-22] MEDS: CHOLECALCIFEROL 1,000 UNITS TABLET 1000 UNITS PO (10:15)
[2021-09-22] MEDS: TOLNAFTATE 1% POWDER 45 GM BTL 1 APPLIC TOPICAL (10:16)
[2021-09-22] MEDS: MAGNESIUM OXIDE 400 MG TABLET PO (10:16)
--- NOTE | 2021-09-22 11:21 | PM.PNNEP ---
Progress Note: A&P Assessment and Plan (1) KONRAD (acute kidney injury): Code(s): N17.9 - Acute kidney failure, unspecified Status: Acute Assessment and Plan: she actually comes to see me in the office. Her baseline GFR is around 50 with a creatinine of 1.1-1.2. She also has KONRAD. suspect multifactorial ATN: COVID-19 infection bacteremia + UTI fluctuating hemodynamics hypoxia renal ultrasound shows normal kidneys urine electrolytes are prerenal. She has no rash or eosinophilia. Creatinine is worse. Urine output responded very little to the high dose diuretics given yesterday and today. She is going to need dialysis if we are going to continue things. We discussed dialysis at length. The patient had Already talked with case managed has decided to go hospice ( this was not noted in the chart yet). the patient wishes to go for comfort care. I offered support and asked if there was anything I could do. (2) Pneumonia due to COVID-19 virus: Code(s): U07.1 - COVID-19; J12.82 - Pneumonia due to coronavirus disease 2019 Status: Acute Assessment and Plan: continue supportive therapy s/p remdesivir and steroids follow respiratory status Isolation his timed out Subjective Date/time seen: 09/22/21 11:21 Interval history: patient lying in bed . on nasal cannula for oxygenation. Son is in the room Exam Narrative: WDWN in NAD skin no rashor subcu nodules head ncat ext 1+ bilateral edema. neuro awake but weak. Oriented. Psych somewhat withdrawn. Not anxious. Objective Data Vital Signs Vital Signs: Vital Signs - 24 hr 09/21/21 11:26 09/21/21 14:45 09/21/21 14:54 Temperature 35.8 C L Pulse Rate 86 Respiratory Rate 22 H Blood Pressure 142/75 H Pulse Oximetry 90 91 93 09/21/21 20:00 09/21/21 21:40 09/21/21 21:45 Temperature Pulse Rate 86 91 89 Respiratory Rate 22 H 22 H 22 H Blood Pressure Pulse Oximetry 93 90 09/21/21 22:00 09/21/21 22:32 09/22/21 01:23 Temperature 36.2 C L Pulse Rate 83 95 93 Respiratory Rate 22 H 22 H 23 H Blood Pressure 136/72 Pulse Oximetry 94 92 93 09/22/21 03:35 09/22/21 06:00 09/22/21 10:11 Temperature 36.6 C Pulse Rate 72 72 Respiratory Rate 20 24 H Blood Pressure 122/63 Pulse Oximetry 93 09/22/21 10:15 09/22/21 10:23 Temperature Pulse Rate 93 89 Respiratory Rate 26 H 26 H Blood Pressure Pulse Oximetry Intake/Output Intake/Output: Intake & Output 09/19/21 09/20/21 09/21/21 09/22/21 23:59 23:59 23:59 23:59 Intake Total 465 720 700 Output Total 475 950 450 550 Balance -10 -230 250 -550 Meds/Results Medications: Active Medications Generic Name Dose Route Start Last Admin Trade Name Freq PRN Reason Stop Dose Admin Acetaminophen 500 mg 08/10/21 07:46 09/18/21 22:04 Acetaminophen 500 Mg Tablet PO 10/09/21 07:45 500 mg Q6H PRN Administration Pain (1-3) Or Fever Albuterol 1 puff 08/10/21 07:46 Albuterol Sulfate (*Sp) Aerosol 1 Puff INHALATION 10/09/21 07:45 Q4-6H PRN Shortness Of Breath Bisacodyl 5 mg 09/18/21 09:00 09/22/21 10:13 Bisacodyl 5 Mg Tablet Ec PO 5 mg QAM GUCCI Administration Bumetanide 2 mg 09/21/21 09:00 09/22/21 10:14 Bumetanide Inj 2.5 Mg/10 Ml Vial IV PUSH 2 mg BID GUCCI Administration Dicyclomine HCl 20 mg 08/10/21 09:00 09/22/21 10:12 Dicyclomine Hcl 10 Mg Capsule PO 10/09/21 08:59 20 mg BID GUCCI Administration Dornase Bakari 2.5 mg 09/16/21 20:00 09/22/21 10:15 Dornase Bakari Inh Soln 1 Mg/Ml 2.5 Ml Amp INHALATION 2.5 mg Q12HRT GUCCI Administration Ferrous Sulfate 324 mg 08/10/21 08:00 09/22/21 10:13 Ferrous Sulfate 324 Mg Tablet PO 10/09/21 07:59 324 mg BIDWM GUCCI Administration Fluticasone/Umeclidinium/Vilanterol 1 puff 08/10/21 07:50 09/22/21 10:27 Fluticasone/Umeclidin/Vilanter 100-62.5-25 Mcg Ellipta INHALATION
--- NOTE | 2021-09-22 15:06 | PM.DS ---
DS: Admitting Diagnosis Discharge Date 09/22/2021 Admitting Diagnosis Shortness of breath DS: Discharge Diagnosis Discharge Diagnosis (1) COVID-19: Code(s): U07.1 - COVID-19 Status: Acute Assessment and Plan: Patient tested positive on rapid COVID test confirmed by PCR on August 23, 2021. Patient was appropriately started on remdesivir and dexamethasone. Patient tested positive for COVID-19 on 08/23 and started on remdesivir, dexamethasone on 05/28 - Continue Remdesivir for 10 days -CPAP continue home treatment. - Dexamethasone 6 mg IV for 05/28 days - Continuous pulse oximetry - Prone positioning as tolerated. -no evidence of affect and mood. -improved currently on 4 L of oxygen (2) Septicemia: Code(s): A41.9 - Sepsis, unspecified organism Status: Acute Assessment and Plan: Patient had fever, hypotension worsening oxygenation and KONRAD consistent with sepsis. She may have pneumonia and she is also being worked up for a pyelonephritis 08/17/2022 Patient grew out methicillin sensitive Staph aureus in 2 blood cultures from 08 17 and has been treated with vancomycin and cefepime. Her mental status has improved. Repeat Blood cultures without growth. Cefepime and vancomycin are stopped on 08/26/2021. Patient started on cefazolin 1 G IV q 8hrs (08/26/2021). First negative culture was 11/07 Patient will complete 2 weeks of IV antibiotic after negative culture on 09/04/2021 Repeat blood culture today Last day of antibiotic today Patient is interested to go to rehab 09/05/2021 Interval history: patient with COVID-19 completed course of dexamethasone and remdesivir, patient with a pleural effusion not amendable to thoracentesis, patient with septicemia secondary to MRSA was treated with Cefepime and with vancomycin completed on 08/26/2021, repeat blood culture are negative so far patient remains clinically stable, patient with history of chronic respiratory failure on 3 L of oxygen patient requiring 4 L at rest, patient remains clinically stable will do the home O2 eval and may discharge the patient tomorrow. 09/06/2021 Interval history: patient with COVID-19 completed course of dexamethasone and remdesivir, today patient is off isolation, patient remains on BiPAP and her oxygen saturation remains low and patient difficulty with maintaining on BiPAP I spoke with the patient's son, according to him his mother does not want to be on ventilator he has made her DNR, patient with a pleural effusion not amendable to thoracentesis, patient with septicemia secondary to MRSA was treated with Cefepime and with vancomycin completed on 08/26/2021, repeat blood culture are negative so far patient remains clinically stable, patient respiratory symptoms of worsening not patient is DNR, son will come and see her and may decide about the hospice. 09/07/2021 Interval history: patient with COVID-19 completed course of dexamethasone and remdesivir, on 09/06 patient was taken off isolation, patient remains on BiPAP and her oxygen saturation remains low and patient difficulty with maintaining on BiPAP I spoke with the patient's son, according to him his mother does not want to be on ventilator he has made her DNR, patient with a pleural effusion not amendable to thoracentesis, patient with septicemia secondary to MRSA was treated with Cefepime and with vancomycin completed on 08/26/2021, repeat blood culture are negative so far patient remains clinically stable, patient respiratory symptoms of worsening now patient is DNR, Ivy son visited patient on 09/06/2021. 09/08/2021 Interval history: patient remains on BiPAP unable to wean the patient off however discussed with nursing during today's if can maintain patient on nasal cannula and keep her saturation close to 90 there will be better and can possibly discharge the patient to half-way, remains clinically stable will continue to monitor. 09/09/2021 Interval history
[2021-09-23 17:13] LABS: Glucose Pleural Fluid 109 mg/dL; Total Protein Pleural Fluid <3.0 g/dL
[2021-09-23 17:13] LABS: LDH Pleural Fluid 63 U/L
[2021-09-24 22:05] LABS: Amylase, Pleural Fluid <10 U/L
== END 2021-09-22 16:30 | disposition hospice, home (50) | DRG 871 ==
LOC: ANHED 03:45 → ANH2MED 04:59 → ANHIMU 19:48 → ANH3MED 08-15 08:33 → ANH2MED 08-22 15:56 → ANH3MEDSUR 08-27 08:29 → ANH2MED 09-25 09:54 → ANH3MED 09-25 09:54 → ANH3MEDSUR 09-25 09:54 → ANHIMU 09-25 09:54
PROVIDERS: Family Medicine; Internal Medicine; Internal Medicine Critical Care Medicine; Internal Medicine Nephrology; Internal Medicine Pulmonary Disease; Nurse Practitioner; Physician Assistant; Admitting Provider Internal Medicine; Emergency Provider Emergency Medicine; PCP Nurse Practitioner Family; Visit Provider Internal Medicine
DX: A41.89 Other specified sepsis; U07.1 COVID-19; J96.22 Acute and chronic respiratory failure with hypercapnia; J96.21 Acute and chronic respiratory failure with hypoxia; J12.82 Pneumonia due to coronavirus disease 2019; G93.41 Metabolic encephalopathy; I50.33 Acute on chronic diastolic (congestive) heart failure; N17.9 Acute kidney failure, unspecified; Z68.41 Body mass index [BMI] 40.0-44.9, adult; J44.1 Chronic obstructive pulmonary disease with (acute) exacerbation; J44.0 Chronic obstructive pulmonary disease with (acute) lower respiratory infection; E87.3 Alkalosis; E87.2 Acidosis; N39.0 Urinary tract infection, site not specified; K92.1 Melena; J91.8 Pleural effusion in other conditions classified elsewhere; I48.20 Chronic atrial fibrillation, unspecified; B95.2 Enterococcus as the cause of diseases classified elsewhere; I11.0 Hypertensive heart disease with heart failure; I27.20 Pulmonary hypertension, unspecified; J98.6 Disorders of diaphragm; Z99.81 Dependence on supplemental oxygen; R93.5 Abnormal findings on diagnostic imaging of other abdominal regions, including retroperitoneum; D53.9 Nutritional anemia, unspecified; D69.6 Thrombocytopenia, unspecified; K29.60 Other gastritis without bleeding; D12.6 Benign neoplasm of colon, unspecified; G47.33 Obstructive sleep apnea (adult) (pediatric); G62.9 Polyneuropathy, unspecified; E78.5 Hyperlipidemia, unspecified; E03.9 Hypothyroidism, unspecified; I73.9 Peripheral vascular disease, unspecified; E87.6 Hypokalemia; E83.42 Hypomagnesemia; E66.01 Morbid (severe) obesity due to excess calories; I71.9 Aortic aneurysm of unspecified site, without rupture; Z66 Do not resuscitate; Z79.01 Long term (current) use of anticoagulants; Z79.899 Other long term (current) drug therapy; Z85.118 Personal history of other malignant neoplasm of bronchus and lung; Z87.11 Personal history of peptic ulcer disease; Z87.891 Personal history of nicotine dependence; Z90.2 Acquired absence of lung [part of]; Z91.19 Patient's noncompliance with other medical treatment and regimen; Z95.828 Presence of other vascular implants and grafts; Z97.8 Presence of other specified devices; Z99.3 Dependence on wheelchair
CPT/HCPCS: 32555; 36415; 36600; 70450; 71045; 71046; 71250; 74176; 76604; 76775; 80048; 80053; 80069; 80076; 80202; 81001; 82140; 82150; 82375; 82550; 82565; 82570; 82607; 82728; 82746; 82805; 82945; 82948; 83050; 83540; 83550; 83615; 83690; 83735; 83880; 83935; 83986; 84100; 84132; 84133; 84145; 84157; 84300; 84311; 84460; 84484; 84550; 85014; 85018; 85025; 85027; 85055; 85610; 85730; 85999; 86140; 86160; 86162; 87015; 87040; 87070; 87075; 87077; 87086; 87088; 87102; 87116; 87186; 87205; 87206; 87426; 88104; 88108; 88305; 89051; 92610; 93005; 93970; 94002; 94003; 94640; 94762; 96365; 96366; 96367; 97110; 97162; 97164; 97165; 97166; 97530; 97535; 99285; A9270; C8929; C9113; C9803; G0378; J0690; J0692; J0743; J1940; J3370; J3475; J3480; J7030; J7040; J8540; Q9957; U0003; U0005